=== PATIENT | male | born 1975 | race Caucasian/White ===

== ENCOUNTER 2020-02-02 13:03 | Emergency (ER) | payer SELFPAY ==
[~2020-02-02] VITALS: Ht 172.7 cm; Wt 86.2 kg
--- OUTSIDE RECORDS SUMMARY | 2020-02-02 13:06 | XMS REPORT | Clinical Summary ---
Author Author [facility] Address Unknown Phone Unavailable Care Team Providers Care Physics Professor Name Role Phone PCP Unavailable Allergies Not on File Medications Not on file Active Problems Not on file Social History Date Tobacco Use Types Packs/Day Years Used Never Assessed Sex Assigned at Date Recorded Not on file Industry Job Start Date Occupation Not on file Not on file Not on file Travel End Travel History Travel Start No recent travel history available. Last Filed Vital Signs Not on file Plan of Treatment Not on file Results Not on fileafter 02/01/2019 Insurance Payer Benefit Subscriber ID Type Phone Address Plan / Group BLUE CROSS/BLUE SHIELD BCBS PPO xxxxxxxxxxxx PPO [address] [place] [address] CHOICE
--- OUTSIDE RECORDS SUMMARY | 2020-02-02 13:06 | XMS REPORT | Summary of Care ---
Author Author [facility] [place] [place] Organization [facility] [place] [place] Address Unknown Phone Unavailable Encounter BETHANY Ramos(MIK) [id number] Date(s): 06/09/19 - 06/14/[address] [facility] [place] [place] [address] [facility] provided by [employer] [place] [address]- Discharge Disposition: Home or Self Care Attending Physician: Santo Reina DO Admitting Physician: Santo Reina DO Vital Signs 1 2 3 Most recent to oldest [Reference Range]: 175.2 cm (06/10/19 4:20 AM) 175.26 cm (06/10/19 1:24 AM) 175.26 cm (06/09/19 11:03 PM) Height 98.4 DegF (06/14/19 11:50 AM) 98.1 DegF (06/14/19 8:05 AM) 98 DegF (06/13/19 11:25 PM) Temperature Oral [96.4-99.1 DegF] 136/73 mmHg (06/14/19 11:50 AM) 147/78 mmHg *HI* (06/14/19 8:05 AM) 139/71 mmHg (06/14/19 3:24 AM) Blood Pressure [90-140/60-90 mmHg] 19 BRMIN (06/14/19 11:50 AM) 18 BRMIN (06/14/19 8:05 AM) 16 BRMIN (06/14/19 3:24 AM) Respiratory Rate [14-20 BRMIN] 81 bpm (06/14/19 11:50 AM) 85 bpm (06/14/19 8:05 AM) 71 bpm (06/14/19 3:24 AM) Peripheral Pulse Rate [60-100 bpm] 90.909 kg (06/10/19 4:20 AM) 90.909 kg (06/10/19 1:24 AM) 90.909 kg (06/09/19 11:03 PM) Weight 29.62 m2 (06/10/19 4:20 AM) 29.6 m2 (06/09/19 11:03 PM) Body Mass Index Problem List No data available for this section Allergies, Adverse Reactions, Alerts Substance Reaction Severity Status Keflex Active iodine Active Medications acetaminophen 1,000 mg, 100 mL, Route: IV, Drug form: INJ, Q6H, Dosing Weight 90.909, kg, Star t date: 06/11/19 0:00:00 CDT, Duration: 4 doses or times, Stop date: 06/11/19 18 :00:00 CDT, > 67 kg; Pediatric Dosing, 0 Notes: Infuse over 15 minutesDo not exceed 4gm/day of acetaminophen MEDICAT ION WASTE Product Size: 1000 mgProduct Wasted: ___ mg Start Date: 06/11/19 Stop Date: 06/11/19 Status: Completed acetaminophen 500 mg oral tablet 1,000 mg = 2 tab, PO, Q6H, X 14 day, # 112 tab, 0 Refill(s) Start Date: 06/14/19 Stop Date: 06/28/19 Status: Ordered acetaminophen-codeine 300 mg-30 mg oral tablet 1 tab, PO, Q6H, PRN pain, # 20 tab, 0 Refill(s) Start Date: 06/10/19 Stop Date: 06/11/19 Status: Discontinued ANES flumazenil 0.2 mg, Route: IVP, PRN, Dosing Weight 90.909, kg, PRN Benzodiazepine Reversal, Initial dose, Start date: 06/10/19 18:16:00 CDT, Duration: 30 day, Stop date: 18:15:00 CDT Start Date: 06/10/19 Stop Date: 06/10/19 Status: Discontinued ANES hydrALAZINE 10 mg, Route: IVP, Q20Min, Dosing Weight 90.909, kg, PRN Elevated BP, Start date : 06/10/19 18:16:00 CDT, Duration: 2 doses or times, Stop date: Limited # of frandy es Start Date: 06/10/19 Stop Date: 06/10/19 Status: Discontinued ANES HYDROmorphone 0.5 mg, Route: IVP, Q5Min, Dosing Weight 90.909, kg, PRN Pain Score 7-10, Start date: 06/10/19 18:16:00 CDT, Duration: 4 doses or times, Stop date: Limited # of times Start Date: 06/10/19 Stop Date: 06/10/19 Status: Discontinued ANES labetalol 10 mg, Route: IVP, Q5Min, Dosing Weight 90.909, kg, PRN Elevated BP, Start date: 06/10/19 18:16:00 CDT, Duration: 5 doses or times, Stop date: Limited # of times Start Date: 06/10/19 Stop Date: 06/10/19 Status: Discontinued ANES naloxone 0.4 mg, Route: IVP, Q2MIN, Dosing Weight 90.909, kg, PRN Narcotic Reversal, Star t date: 06/10/19 18:16:00 CDT, Duration: 8 doses or times, Stop date: Limited # of times Start Date: 06/10/19 Stop Date: 06/10/19 Status: Discontinued ANES ondansetron 4 mg, Route: IVP, ONCE, Dosing Weight 90.909, kg, PRN Nausea & Vomiting, Start date: 06/10/19 18:16:00 CDT Start Date: 06/10/19 Stop Date: 06/10/19 Status: Discontinued ANES oxyCODONE 5 mg immediate release tablet 5 mg, Route: PO, Drug form: TAB, Q4H, Dosing Weight 90.909, kg, PRN Pain Score 4 -6, Start date: 06/10/19 18:16:00 CDT, Duration: 30 day, Stop date: 07/10/19 18: 15:00 CDT Start Date: 06/10/19 Stop Date: 06/10/19 Status: Discontinued ANES oxyCODONE 5 mg immediate release tablet 10 mg, Route: PO, Drug form: TAB, Q4H, Dosing Weight 90.909, kg, PRN Pain Score 7-10, Start date: 06/10/19 18:16:00 CDT, Duration: 30 day, Stop date: 07/10/19 1 8:15:00 CDT Start Date: 06/10/19 Stop Date: 06/10/19 Status: Discontinued Bactrim DS 800 mg- 160 mg oral tablet 1 tab, Route: PO, Drug Form: TAB, Dosing Weight 90.909, kg, [id number], Start date: 06/13/19 8:00:00 CDT, Duration: 7 day, Stop date: 06/19/19 20:00:00 CDT, 0 Notes: One DS tablet = trimethoprim 160mg + sulfamethoxazole 800 mgDose based on trimethoprim component On empty stomach with a glass of water. (Same As: Bactr im DS, Septra DS) Start Date: 06/13/19 Stop Date: 06/14/19 Status: Discontinued Bactrim DS 800 mg- 160 mg oral tablet 1 tab, PO, [id number], X 6 day, # 12 tab, 0 Refill(s) Start Date: 06/14/19 Stop Date: 06/20/19 Status: Ordered Bactrim DS 800 mg- 160 mg oral tablet 2 tab, Route: PO, Drug Form: TAB, Dosing Weight 90.909, kg, [id number], Start date: 06/12/19 13:00:00 CDT, Duration: 10 day, Stop date: 06/22/19 1:00:00 CDT, 0 Notes: One DS tablet = trimethoprim 160mg + sulfamethoxazole 800 mgDose based on trimethoprim component On empty stomach with a glass of water. (Same As: Bactr im DS, Septra DS) Start Date: 06/12/19 Stop Date: 06/12/19 Status: Discontinued Dilaudid 0.5 mg, Route: IVP, ONCE, Dosing Weight 90.909, kg, Priority: STAT, Start date: 06/11/19 14:40:00 CDT, Stop date: 06/11/19 14:40:00 CDT Start Date: 06/11/19 Stop Date: 06/11/19 Status: Discontinued docusate-senna 50 mg-8.6 mg oral tablet 1 tab, PO, BID, X 14 day, # 28 tab, 0 Refill(s) Start Date: 06/14/19 Stop Date: 06/28/19 Status: Ordered docusate-senna 50 mg-8.6 mg oral tablet 1 tab, Route: PO, Drug Form: TAB, Dosing Weight 90.909, kg, BID, Start date: 9:00:00 CDT, Duration: 30 day, Stop date: 07/09/19 17:00:00 CDT, 0 Notes: (Same as Senmarvaot-S) Equiv. to Isis-Colace. Start Date: 06/10/19 Stop Date: 06/14/19 Status: Discontinued dronabinol 10 mg, 2 cap, Route: PO, Drug form: CAP, BID, Dosing Weight 90.909, kg, Start da te: 06/11/19 20:31:00 CDT, Duration: 30 day, Stop date: 07/11/19 17:00:00 CDT, 0 Notes: (Same as: Marinol) Start Date: 06/11/19 Stop Date: 06/14/19 Status: Discontinued fentaNYL (ANES) Route: IV, Drug form: INJ, ONCE, Stop date: 06/10/19 18:24:00 CDT Start Date: 06/10/19 Stop Date: 06/10/19 Status: Completed gabapentin 300 mg oral capsule 300 mg, 1 cap, Route: PO, Drug form: CAP, Q8H, Dosing Weight 90.909, kg, (CrCl > 60 ml/min), Start date: 06/11/19 0:00:00 CDT, Duration: 30 day, Stop date: 06/19 12/04 18:00:00 CDT, 0 Notes: (Same as: Neurontin) Start Date: 06/11/19 Stop Date: 06/14/19 Status: Discontinued gabapentin 300 mg oral capsule 300 mg = 1 cap, PO, Q8H, # 42 cap, 0 Refill(s) Start Date: 06/14/19 Stop Date: 06/28/19 Status: Ordered heparin 5,000 unit, 1 mL, Route: SUB-Q, Drug form: INJ, Q8Hnow, Dosing Weight 90.909, kg , Start date: 06/10/19 4:00:00 CDT, Duration: 30 day, Stop date: 07/09/19 20:00: 00 CDT, 0 Notes: porcine heparin Start Date: 06/10/19 Stop Date: 06/14/19 Status: Discontinued heparin 5000 units/mL injectable solution 5,000 unit, 1 mL, Route: SUB-Q, Drug form: INJ, Q8H, Dosing Weight 90.909, kg, S tart date: 06/10/19 2:00:00 CDT, Duration: 30 day, Stop date: 07/10/19 0:00:00 C DT, 0 Notes: porcine heparin Start Date: 06/10/19 Stop Date: 06/10/19 Status: Discontinued hydromorphone (ANES) + sodium chloride (ANES) 9 mL Route: IV, Drug form: INJ, ONCE, Stop date: 06/10/19 18:30:00 CDT Start Date: 06/10/19 Stop Date: 06/10/19 Status: Completed Isolyte S PH 7.4 1,000 mL 1,000 mL, Rate: 120 ml/hr, Infuse over: 8.3 hr, Route: IV, Dosing Weight 90.909 kg, Total Volume: 1,000, Start date: 06/10/19 1:05:00 CDT, Duration: 30 day, Sto p date: 07/10/19 1:04:00 CDT, 2.12, m2, 0 Notes: (Same as: Isolyte S PH 7.4) Start Date: 06/10/19 Stop Date: 06/14/19 Status: Discontinued Lactated Ringers Injection IV (ANES) 1000 mL Route: IV, Total Volume: 1,000, Start date: 06/10/19 17:12:00 CDT, Stop date: 18:12:00 CDT Start Date: 06/10/19 Stop Date: 06/10/19 Status: Completed lidocaine (ANES) Route: IV, Drug form: INJ, ONCE, Stop date: 06/10/19 18:24:00 CDT Start Date: 06/10/19 Stop Date: 06/10/19 Status: Completed Lidoderm 5% topical film (patch) 2 patch, Route: TOP, Q24H, Drug form: FILM, Start date: 06/10/19 5:00:00 CDT, Du ration: 30 day, Stop date: 07/09/19 5:00:00 CDT, 0 Notes: Apply only once for up to 12 hours in [id number] period (12 hours on and 12 hours off).(Same as: Lidoderm)"Remove old patch before application of new patch" Start Date: 06/10/19 Stop Date: 06/14/19 Status: Discontinued meropenem 500 mg, Route: IVPB, Drug form: PDR/INJ, ONCE, Dosing Weight 90.909, kg, Priorit y: STAT, Start date: 06/10/19 0:37:00 CDT, Stop date: 06/10/19 0:37:00 CDT, ABX Indication: Skin/Soft Tissue Infection, 0 Notes: Same as Merrem MEDICATION WASTE Product Size: 500 mgProduct Wast ed: _0__ mg Start Date: 06/10/19 Stop Date: 06/10/19 Status: Completed meropenem 1,000 mg, Route: IV, Drug form: PDR/INJ, Q8H, Dosing Weight 90.909, kg, Start da te: 06/10/19 8:00:00 CDT, Duration: 30 day, Stop date: 07/10/19 0:00:00 CDT, ABX Indication: Skin/Soft Tissue Infection, 0 Notes: (Same as: Merrem) . MEDICATION WASTE Product Size: 1000 mgProduc t Wasted: ___ mg Start Date: 06/10/19 Stop Date: 06/12/19 Status: Discontinued methocarbamol 750 mg oral tablet 750 mg = 1 tab, PO, TID, X 7 day, # 21 tab, 0 Refill(s) Start Date: 06/14/19 Stop Date: 06/21/19 Status: Ordered midazolam (ANES) Route: IV, Drug form: SOLN, ONCE, Stop date: 06/10/19 17:44:00 CDT Start Date: 06/10/19 Stop Date: 06/10/19 Status: Completed morphine Sulfate 4 mg, 1 mL, Route: IVP, Drug form: SOLN, ONCE, Dosing Weight 90.909, kg, Start d ate: 06/10/19 21:00:00 CDT, Stop date: 06/10/19 21:00:00 CDT, 0 Notes: (Same as:MORPhine Sulfate) Start Date: 06/10/19 Stop Date: 06/10/19 Status: Completed morphine Sulfate 4 mg, 1 mL, Route: IVP, Drug form: SOLN, ONCE, Dosing Weight 90.909, kg, Priorit y: STAT, Start date: 06/09/19 23:28:00 CDT, Stop date: 06/09/19 23:28:00 CDT, 0 Notes: (Same as:MORPhine Sulfate) Start Date: 06/09/19 Stop Date: 06/09/19 Status: Completed nicotine 7 mg, 1 patch, Route: TOP, Drug form: ERFILM, Daily, Dosing Weight 90.909, kg, S tart date: 06/10/19 9:00:00 CDT, Duration: 30 day, Stop date: 07/09/19 9:00:00 C DT, 0 Notes: (Same as: Habitrol)"Remove old patch before application of new patch"WAST E: F/P - P Waste Black; E - P Waste Black Start Date: 06/10/19 Stop Date: 06/14/19 Status: Discontinued pantoprazole 40 mg, 1 tab, Route: PO, Drug form: ECTAB, Before Breakfast, Dosing Weight 90.90 9, kg, Start date: 06/10/19 7:30:00 CDT, Duration: 30 day, Stop date: 07/09/19 7 :30:00 CDT, 0 Notes: Tablet should not be chewed or crushed.(Same as: Protonix) Start Date: 06/10/19 Stop Date: 06/14/19 Status: Discontinued pantoprazole 40 mg oral enteric coated tablet 40 mg = 1 tab, PO, Before Breakfast, # 14 tab, 0 Refill(s) Start Date: 06/14/19 Stop Date: 06/28/19 Status: Ordered propofol (ANES) Route: IV, Drug form: INJ, ONCE, Stop date: 06/10/19 18:24:00 CDT Start Date: 06/10/19 Stop Date: 06/10/19 Status: Completed remove patch 1 patch, Route: TOP, Drug form: ERFILM, Daily, Start date: 06/10/19 9:00:00 CDT, Duration: 30 day, Stop date: 07/09/19 9:00:00 CDT, 0 Notes: Remove old patch before application of new patch.WASTE: F/P - P Waste Juan ck; E - P Waste Black Start Date: 06/10/19 Stop Date: 06/14/19 Status: Discontinued remove patch 2 patch, Route: TOP, Q24H, Drug form: ERFILM, Start date: 06/10/19 17:00:00 CDT, Duration: 30 day, Stop date: 07/09/19 17:00:00 CDT, 0 Notes: Remove patch 12 hours after application each day. Start Date: 06/10/19 Stop Date: 06/14/19 Status: Discontinued Robaxin 750 mg, 1 tab, Route: PO, Drug form: TAB, TID, Dosing Weight 90.909, kg, Start d ate: 06/12/19 9:00:00 CDT, Duration: 5 day, Stop date: 06/16/19 17:00:00 CDT, 0 Notes: (Same as:Robaxin) Start Date: 06/12/19 Stop Date: 06/14/19 Status: Discontinued rocuronium (ANES) Route: IV, Drug form: INJ, ONCE, Stop date: 06/10/19 18:24:00 CDT Start Date: 06/10/19 Stop Date: 06/10/19 Status: Completed succinylcholine (ANES) Route: IV, Drug form: INJ, ONCE, Stop date: 06/10/19 18:24:00 CDT Start Date: 06/10/19 Stop Date: 06/10/19 Status: Completed tramadol 50 mg, Route: PO, Drug form: TAB, Q6H, Dosing Weight 90.909, kg, Start date: 6:00:00 CDT, Duration: 30 day, Stop date: 07/10/19 0:00:00 CDT Start Date: 06/10/19 Stop Date: 06/10/19 Status: Canceled tramadol 100 mg, 2 tab, Route: PO, Drug form: TAB, Q6H, Dosing Weight 90.909, kg, PRN Dai n Score 4-6, Start date: 06/10/19 1:53:00 CDT, Duration: 30 day, Stop date: 06/19 12/04 1:52:00 CDT, 0 Notes: Not to exceed 400mg/day. (Same As: Ultram) Start Date: 06/10/19 Stop Date: 06/14/19 Status: Discontinued tramadol 50 mg oral tablet 100 mg = 2 tab, PO, Q6H, PRN Pain Score 4-6, X 3 day, # 24 tab, 0 Refill(s) Start Date: 06/14/19 Stop Date: 06/17/19 Status: Ordered Tylenol 1,000 mg, 2 tab, Route: PO, Drug form: TAB, Q6H, Dosing Weight 90.909, kg, Start date: 06/10/19 6:00:00 CDT, Duration: 30 day, Stop date: 07/10/19 0:00:00 CDT, 0 Notes: Max acetaminophen 4000 mg/day (4 gm/day). (Same as: Tylenol Extra Streng th) Start Date: 06/10/19 Stop Date: 06/14/19 Status: Discontinued vancomycin 1.25 gm, Route: IVPB, Drug form: INJ, [id number], Dosing Weight 90.909, kg, Priority : Within 4 hours, Start date: 06/12/19 15:00:00 CDT, Duration: 1 day, Stop date: 06/13/19 7:00:00 CDT, ABX Indication: Skin/Soft Tissue Infection Start Date: 06/12/19 Stop Date: 06/12/19 Status: Canceled vancomycin 800 mg, Route: IV, ONCE, Dosing Weight 90.909, kg, Start date: 06/10/19 1:20:00 CDT, Stop date: 06/10/19 1:20:00 CDT, ABX Indication: Skin/Soft Tissue Infection Start Date: 06/10/19 Stop Date: 06/10/19 Status: Completed vancomycin 1,250 mg, 250 mL, Route: IV, Drug form: INJ, [id number], Dosing Weight 90.909, kg, Start date: 06/10/19 4:00:00 CDT, Duration: 7 day, Stop date: 06/16/19 16:00:00 CDT, ABX Indication: Skin/Soft Tissue Infection, 0 Notes: TIME CRITICAL MEDICATIONSame as: Vancocin-NS (premixed)Infusion rate< 1000 mg: infuse over 1 [id number] - 1500 mg: infuse over 1.5 [id number] - 2000 mg: infuse over 2 hours> 2001 mg: infuse over 2.5 hours Start Date: 06/10/19 Stop Date: 06/10/19 Status: Discontinued vancomycin 1 gm, Route: IVPB, Drug form: INJ, [id number], Start date: 06/10/19 14:00:00 CDT, D uration: 7 day, Stop date: 06/17/19 2:00:00 CDT, ABX Indication: Skin/Soft Tissu e Infection, 0 Notes: TIME CRITICAL MEDICATION(Same As: Vancocin)Infusion rate< 1000 mg: infuse over 1 [id number] - 1500 mg: infuse over 1.5 [id number] - 2000 mg: infuse over 2 hours> 2001 mg: infuse over 2.5 hoursFor adult patients only: Round to nearest 250 mg per Medical Staff approval MEDICATION WASTE Product Size: 1000 mgProduct Wasted: ___ mg Start Date: 06/10/19 Stop Date: 06/10/19 Status: Deleted vancomycin 1,250 mg, 250 mL, Route: IV, Drug form: INJ, [id number], Dosing Weight 90.909, kg, S tart date: 06/10/19 14:00:00 CDT, Stop date: 06/16/19 22:30:00 CDT, ABX Indicati on: Skin/Soft Tissue Infection, 0 Notes: TIME CRITICAL MEDICATIONSame as: Vancocin-NS (premixed)Infusion rate< 1000 mg: infuse over 1 [id number] - 1500 mg: infuse over 1.5 [id number] - 2000 mg: infuse over 2 hours> 2001 mg: infuse over 2.5 hours Start Date: 06/10/19 Stop Date: 06/12/19 Status: Discontinued vancomycin + Sodium Chloride 0.9% IV 250 mL 1,500 mg, Route: IVPB, [id number], Dosing Weight 90.909, kg, Start date: 06/12/19 1 8:00:00 CDT, Duration: 1 day, Stop date: 06/13/19 6:00:00 CDT, ABX Indication: S kin/Soft Tissue Infection, 0 Notes: TIME CRITICAL MEDICATION(Same As: Vancocin)Infusion rate< 1000 mg: infuse over 1 [id number] - 1500 mg: infuse over 1.5 hoursVancomycin FOR IV SET [id number] - 2000 mg: infuse over 2 hours> 2001 mg: infuse over 2.5 hoursFor adult patients only: Round to nearest 250 mg per Medical Staff approval MEDICATION WASTE Product Size: 1000 mgProduct Wasted: ___ mg Start Date: 06/12/19 Stop Date: 06/13/19 Status: Completed Zofran 2 mg/mL injectable solution 4 mg, 2 mL, Route: IV, Drug form: INJ, ONCE, Dosing Weight 90.909, kg, Start giovanni e: 06/10/19 11:16:00 CDT, Stop date: 06/10/19 11:16:00 CDT, 0 Notes: (Same as: Zofran) MEDICATION WASTE Product Size: 4 mgProduct Was chente: ___ mg Start Date: 06/10/19 Stop Date: 06/10/19 Status: Completed Results 1 2 3 Most recent to oldest [Reference Range]: 9.4 K/CMM *HI* (06/14/19 2:11 AM) 18.7 K/CMM *HI* (06/09/19 11:38 PM) Neutrophils # [1.5-8.1 K/CMM] 5.0 K/CMM (06/14/19 2:11 AM) 3.4 K/CMM (06/09/19 11:38 PM) Lymphocytes # [1.0-5.5 K/CMM] 1.6 K/CMM *HI* (06/14/19 2:11 AM) 2.2 K/CMM *HI* (06/09/19 11:38 PM) Monocytes # [0.0-0.8 K/CMM] 0.7 K/CMM *HI* (06/14/19 2:11 AM) 0.3 K/CMM (06/09/19 11:38 PM) Eosinophils # [0.0-0.5 K/CMM] 0.1 K/CMM (06/14/19 2:11 AM) 0.1 K/CMM (06/09/19 11:38 PM) Basophils # [0.0-0.2 K/CMM] 1500 *NA* (06/12/19 3:50 PM) 1330 *NA* (06/11/19 2:20 PM) Vanco Tr TND 7.4 ug/ml *NA* (06/12/19 3:50 PM) 0.9 ug/ml *NA* (06/11/19 2:20 PM) Vanco Tr Normal (06/09/19 11:38 PM) Plt Morph [Normal] 67 mL/min/1.73m2 1 *NA* (06/14/19 2:11 AM) 76 mL/min/1.73m2 2 *NA* (06/13/19 12:15 AM) 76 mL/min/1.73m2 3 *NA* (06/13/19 12:15 AM) eGFR O POS *Unknown* (06/09/19 11:35 PM) ABO/Rh See Note (06/11/19 3:00 AM) UDS Note 0.7 (06/13/19 12:15 AM) A/G Ratio [0.7-1.6] Negative (06/09/19 11:35 PM) Antibody Scrn 2.6 g/dL *LOW* (06/13/19 12:15 AM) Albumin Lvl [3.5-5.0 g/dL] 57 unit/L (06/13/19 12:15 AM) Alk Phos [39-136 unit/L] 56 unit/L (06/13/19 12:15 AM) ALT [0-65 unit/L] Negative *NA* (06/11/19 3:00 AM) U Amph Scr [Negative] 12.6 mEq/L (06/14/19 2:11 AM) 11.3 mEq/L (06/13/19 12:15 AM) 11.3 mEq/L (06/13/19 12:15 AM) AGAP [10.0-20.0 mEq/L] 33 unit/L (06/13/19 12:15 AM) AST [0-37 unit/L] 8 (06/13/19 12:15 AM) B/C Ratio [6-25] Negative *NA* (06/11/19 3:00 AM) U Yenifer Scr [Negative] 0.8 % (06/14/19 2:11 AM) 0.3 % (06/09/19 11:38 PM) Basophils [0.0-1.0 %] Positive *ABN* (06/11/19 3:00 AM) U Benzodiaz Scr [Negative] 11 mg/dL (06/14/19 2:11 AM) 9 mg/dL (06/13/19 12:15 AM) 9 mg/dL (06/13/19 12:15 AM) BUN [7-22 mg/dL] 8.9 mg/dL (06/14/19 2:11 AM) 8.8 mg/dL (06/13/19 12:15 AM) 8.8 mg/dL (06/13/19 12:15 AM) Calcium Lvl [8.5-10.5 mg/dL] 107 mEq/L (06/14/19 2:11 AM) 107 mEq/L (06/13/19 12:15 AM) 107 mEq/L (06/13/19 12:15 AM) Chloride Lvl [95-109 mEq/L] 23 mEq/L *LOW* (06/14/19 2:11 AM) 24 mEq/L (06/13/19 12:15 AM) 24 mEq/L (06/13/19 12:15 AM) CO2 [24-32 mEq/L] Negative *NA* (06/11/19 3:00 AM) U Cocaine Scr [Negative] 1.31 mg/dL (06/14/19 2:11 AM) 1.18 mg/dL (06/13/19 12:15 AM) 1.18 mg/dL (06/13/19 12:15 AM) Creatinine Lvl [0.50-1.40 mg/dL] 3.9 % (06/14/19 2:11 AM) 1.4 % (06/09/19 11:38 PM) Eosinophils [0.0-4.0 %] 3.7 g/dL (06/13/19 12:15 AM) Globulin [2.7-4.2 g/dL] 127 mg/dL *HI* (06/14/19 2:11 AM) 135 mg/dL *HI* (06/13/19 12:15 AM) 135 mg/dL *HI* (06/13/19 12:15 AM) Glucose Lvl [70-99 mg/dL] Negative *NA* (06/11/19 4:44 AM) Hep A IgM [Negative] Negative *NA* (06/11/19 4:44 AM) Hep B Core IgM [Negative] Negative *NA* (06/11/19 4:44 AM) Hep Bs Ag [Negative] 43.7 % (06/14/19 2:11 AM) 39.2 % *LOW* (06/13/19 12:15 AM) 40.2 % *LOW* (06/11/19 4:44 AM) Hct [42.0-54.0 %] Negative *NA* (06/11/19 4:44 AM) Hep C Ab [Negative] 14.2 g/dL (06/14/19 2:11 AM) 13.1 g/dL *LOW* (06/13/19 12:15 AM) 13.0 g/dL *LOW* (06/11/19 4:44 AM) Hgb [14.0-18.0 g/dL] 4.6 mEq/L (06/14/19 2:11 AM) 4.3 mEq/L (06/13/19 12:15 AM) 4.3 mEq/L (06/13/19 12:15 AM) Potassium Lvl [3.5-5.1 mEq/L] 0.9 mMol/L (06/09/19 11:38 PM) Lactic Acid Lvl [0.5-2.2 mMol/L] 30.0 % (06/14/19 2:11 AM) 13.6 % *LOW* (06/09/19 11:38 PM) Lymphocytes [20.0-40.0 %] 26.4 pg *LOW* (06/14/19 2:11 AM) 26.9 pg *LOW* (06/13/19 12:15 AM) 26.4 pg *LOW* (06/11/19 4:44 AM) MCH [27.0-31.0 pg] 32.5 g/dL (06/14/19 2:11 AM) 33.3 g/dL (06/13/19 12:15 AM) 32.4 g/dL (06/11/19 4:44 AM) MCHC [32.0-36.0 g/dL] 81.3 fL (06/14/19 2:11 AM) 80.8 fL (06/13/19 12:15 AM) 81.5 fL (06/11/19 4:44 AM) MCV [80.0-94.0 fL] Negative *NA* (06/11/19 3:00 AM) U Methadone Scr [Negative] 1.8 mg/dL (06/10/19 4:57 AM) Magnesium Lvl [1.8-2.4 mg/dL] 9.3 % (06/14/19 2:11 AM) 9.1 % (06/09/19 11:38 PM) Monocytes [2.0-12.0 %] 8.0 fL (06/14/19 2:11 AM) 7.5 fL (06/13/19 12:15 AM) 8.1 fL (06/11/19 4:44 AM) MPV [7.4-10.4 fL] 138 mEq/L (06/14/19 2:11 AM) 138 mEq/L (06/13/19 12:15 AM) 138 mEq/L (06/13/19 12:15 AM) Sodium Lvl [135-145 mEq/L] Positive *ABN* (06/11/19 3:00 AM) U Opiate Scr [Negative] Negative *NA* (06/11/19 3:00 AM) U Phencyclidine Scr [Negative] 1.9 mg/dL *LOW* (06/10/19 4:57 AM) Phosphorus [2.5-4.5 mg/dL] 689 K/CMM *HI* (06/14/19 2:11 AM) 640 K/CMM *HI* (06/13/19 12:15 AM) 598 K/CMM *HI* (06/11/19 4:44 AM) Platelet [133-450 K/CMM] 56.0 % (06/14/19 2:11 AM) 75.6 % *HI* (06/09/19 11:38 PM) Segs [45.0-75.0 %] Negative *NA* (06/11/19 3:00 AM) U Propoxyph Scr [Negative] 6.3 g/dL *LOW* (06/13/19 12:15 AM) Total Protein [6.4-8.4 g/dL] 5.38 M/CMM (06/14/19 2:11 AM) 4.85 M/CMM (06/13/19 12:15 AM) 4.92 M/CMM (06/11/19 4:44 AM) RBC [4.70-6.10 M/CMM] Normal (06/09/19 11:38 PM) RBC Morph [Normal] 17.1 % *HI* (06/14/19 2:11 AM) 16.7 % *HI* (06/13/19 12:15 AM) 16.7 % *HI* (06/11/19 4:44 AM) RDW [11.5-14.5 %] 0.2 mg/dL (06/13/19 12:15 AM) Bili Total [0.2-1.3 mg/dL] Negative *NA* (06/11/19 3:00 AM) U Cannab Scr [Negative] 16.9 K/CMM *HI* (06/14/19 2:11 AM) 18.8 K/CMM *HI* (06/13/19 12:15 AM) 22.5 K/CMM *HI* (06/11/19 4:44 AM) WBC [3.7-10.4 K/CMM] Negative *NA* (06/11/19 4:44 AM) HIV. [Negative] 1Result Comment: The eGFR is calculated using the CKD-EPI formula. In most young, healthy individuals the eGFR will be >90 mL/min/1.73m2. The eGFR declines with age. An eGFR of 60-89 may be normal in some populations, particularly the elderly, for whom the CKD-EPI formula has not been extensively validated. Use of the eGFR is not recommended in the following populations: Individuals with unstable creatinine concentrations, including patients and those with serious co-morbid conditions. Patients with extremes in muscle mass or diet. The data above are obtained from the [employer] ( [employer]) which additionally recommends that when the eGFR is used in patients with extremes of body mass index for purposes of drug dosing, the eGFR should be mul tiplied by the estimated BMI. 2Result Comment: The eGFR is calculated using the CKD-EPI formula. In most young, healthy individuals the eGFR will be >90 mL/min/1.73m2. The eGFR declines with age. An eGFR of 60-89 may be normal in some populations, particularly the elderly, for whom the CKD-EPI formula has not been extensively validated. Use of the eGFR is not recommended in the following populations: Individuals with unstable creatinine concentrations, including patients and those with serious co-morbid conditions. Patients with extremes in muscle mass or diet. The data above are obtained from the [employer] ( [employer]) which additionally recommends that when the eGFR is used in patients with extremes of body mass index for purposes of drug dosing, the eGFR should be mul tiplied by the estimated BMI. 3Result Comment: The eGFR is calculated using the CKD-EPI formula. In most young, healthy individuals the eGFR will be >90 mL/min/1.73m2. The eGFR declines with age. An eGFR of 60-89 may be normal in some populations, particularly the elderly, for whom the CKD-EPI formula has not been extensively validated. Use of the eGFR is not recommended in the following populations: Individuals with unstable creatinine concentrations, including patients and those with serious co-morbid conditions. Patients with extremes in muscle mass or diet. The data above are obtained from the [employer] ( [employer]) which additionally recommends that when the eGFR is used in patients with extremes of body mass index for purposes of drug dosing, the eGFR should be mul tiplied by the estimated BMI. Microbiology Reports TEST: Culture: Anaerobic STATUS: Auth (Verified) BODY SITE: Left Hip SOURCE: Wound, Surgical COLLECTED DATE/TIME: 06/10/19 5:50 PM FINAL REPORT Many Anaerobic Gram Positive Cocci , Identified As: Peptoniphilus indolicus TEST: Culture: Wound/Abscess w/Gram Stain STATUS: Auth (Verified) BODY SITE: Left Hip SOURCE: Wound, Surgical COLLECTED DATE/TIME: 06/10/19 5:50 PM FINAL REPORT Many Staphylococcus aureus Upon Supplemental Testing, This Isolate Was Found To Be Resistant To Clindamycin By An Inducible Mechanism. STAIN REPORT Moderate WBC's Rare Gram Positive Cocci In Clusters Critical Results Called To: Ms. Fausto RN, [id number], [id number] At: 06/10/2019 19:35 Called By: FREDDY Read Back Ok ORGANISM:Staphylococcus aureus Immunizations Given and Recorded Vaccine Date Status Refusal Reason influenza virus vaccine, inactivated 06/14/19 G iven haemophilus b conjugate (PRP-T) vaccine 12/15/17 Given meningococcal conjugate vaccine 12/15/17 Given pneumococcal 13-valent vaccine 12/15/17 Given Procedures Procedure Date Related Diagnosis Body Site Status Colonoscopy 2007 Completed Tonsillectomy 1982 Completed Splenectomy Completed Social History Social History Type Response Alcohol Current, Type Beer. Freque ncy: Daily. Smoking Status Current every day smoker; T ype: Cigarettes; Ready to change: Yes; Exposure to Tobacco Smoke None; Cigarette Smokin g Last 365 Days Yes; Reg Smoking Cessation Counseling No; Tobacco use pe r day: 2; Started at age: 20.0; entered on: 06/09/19 Assessment and Plan Extracted from: Title: EGS Discharge Summary Author: Rodger Balderrama Date: 06/14/19 Date of Admission: 06/09/2019 23:02 Date of Discharge: 06/14/2019 17:44 Admitting Attending: Santo Reina DO Diagnosis: Bilateral Thigh Abscesses Consultations: Consulting Physicians: Prabhakar Peña MDOffice: Service: General Surgery Surgical Procedures: Incision and drainage of abscesses, right and left hip. 06/10 Time spent Discharging Patient: 45 min Hospital Course: 43 year old male with Pmh of polycythemi a vera (non compliant with phlebotomy) , splenectomy, and GERD who p/w with bilateral thigh swelling. The patient states that for 3 weeks he has been injecting testosterone with needles into his bilateral thighs. He states that about 1 week ago after he fell in the shower he noticed swelling to bilateral thighs accompanied with pain, redness, erythema, and warmth. He first went to [facility] and had the right swelling I&D and subsequently packed. He was then prescribed Bactrim (day 7) and clindamycin (day 3) from [facility]. Bilateral swellings have continued to worsen and he developed fever (102), nausea, and non bloody emesis yesterday. He was seen at [facility] today and was referred here after CT scan showed cellulitis vs abscess. He was then taken to the OR on 06/10 for Incision and drainage of abscesses, right and left hip. There were no complications. The remainder of his hospital course was without complications. Repeat labs remained stable. The patient was tolerating an oral diet, pain was controlled with oral pain medications, voiding without difficulty, and passing regular bowel movements. He was ambulating with assistance from PT and RW and above goal on IS. At this time all consulting services agreed pt was safe for DC home. He was instructed to notify all treating physicians if he develops fever, SOB, pain that is not controlled on prescription pain medications, severe or worsening headache, numbness or tingling in his extremities, nausea or vomiting, signs of infection, or unexplained swelling. Disposition: Home Condition: Stable Diet: Regular Discharge Instructions Activity: Diet: Medications (name, dose, route, frequency): Discharge Medications tramadol 50 mg oral tablet :100 mg, 2 tab, PO, Q6H, for 3 day, PRN: Pain Score 4-6, 24 tab, 0 Refill(s) Ordered by: Rodger Balderrama MD - 06/14/2019 12:33 Bactrim DS 800 mg- 160 mg oral tablet :1 tab, PO, [id number], for 6 day, 12 tab, 0 Refill(s) Ordered by: Rodger Balderrama MD - 06/14/2019 12:33 pantoprazole 40 mg oral enteric coated tablet :40 mg, 1 tab, PO, Before Breakfast, for 14 day, 14 tab, 0 Refill(s) Ordered by: Rodger Balderrama MD - 06/14/2019 12:33 methocarbamol 750 mg oral tablet :750 mg, 1 tab, PO, TID, for 7 day, 21 tab, 0 Refill(s) Ordered by: Rodger Balderrama MD - 06/14/2019 12:33 gabapentin 300 mg oral capsule :300 mg, 1 cap, PO, Q8H, for 14 day, 42 cap, 0 Refill(s) Ordered by: Rodger Balderrama MD - 06/14/2019 12:33 docusate-senna 50 mg-8.6 mg oral tablet :1 tab, PO, BID, for 14 day, 28 tab, 0 Refill(s) Ordered by: Rodger Balderrama MD 06/14/2019 12:33 acetaminophen 500 mg oral tablet :1,000 mg, 2 tab, PO, Q6H, for 14 day, 112 tab, 0 Refill(s) Ordered by: Rodger Balderrama MD - 06/14/2019 12:33 Follow Up With Prabhakar Peña MD, Call for appointment, within: 2 Weeks, reason: Follow Up On Treatment Rodger Balderrama MD General Surgery PGY-1 MSO# [id number] Pager #[phone] Addendum ATTENDING ATTESTATION: by Mariana, I have seen and examined th e patient with the above provider (resident/fellow). Prabhakar Futhermore, I concur with t heir findings and plan as noted above. Atif MASON on 06/15/2019 12:09 Extracted from: Title: EGS Progress Note Author: Myra Aponte DO Date: Abscess of hip(L02.419) Cellulitis(L03.90) 1. Cellulitis - Discontinue meropenem per ID recs - Discontinued vancomycin and start PO bactrim 1 tab q12h for 7 days - Regular diet - ID recommended MRI of hips however in OR, no visualization of abscess going near bone so no current indications for MRI at this time Myra Aponte DO Anesthesiology PGY-1 Addendum by Mariana, ATTENDING ATTESTATION: Prabhakar I have seen and examined th e patient with the above provider (resident/fellow). Atif MASON Futnadeen, I concur with t findings and plan as noted above. on 06/15/2019 16:11 CDT Extracted from: Title: EGD History and Physical Author: Brielle Dowd MD Date: 06/10/19 Abscess of hip(L02.419) Cellulitis(L03.90) 43 year old male with Pmh of polycythemia vera, splenectomy,andGERD who p/w with bilateral thigh swelling abscess . #bilateral thigh abscess -Npo -F/u Am labs -MIVF -OR this AM -Cultures to be obtained in OR -vancomycin (06/10- -Meropenem (06/10- #mmpt lidoderm tramadol tylenol #tobacco use -Nicotine patch #GERD -PPI #GI bowel regimen (docusate-senna) #DVT ppx heparin Brielle Dowd MD Anesthesia, PGY-1 [facility] ATTENDING ADDENDUM: I have personally seen and examined this patient with Dr. Dowd. Furthermore I have reviewed the resident's note and I agree with the above exam, assessment, and plan. I have reviewed all relevant imaging and interpretted it myself. Yana Reina [id number]
--- OUTSIDE RECORDS SUMMARY | 2020-02-02 13:06 | XMS REPORT | Summary of Care ---
Author Author [facility] Organization [facility] Address Unknown Phone Unavailable Encounter BETHANY Ramos(MIK) [id number] Date(s): 12/07/17 - 12/15/17 [facility] [address] [place] [address]- [phone] Encounter Diagnosis Pneumonia, unspecified organism (Final) - Pneumonia, unspecified organism (Final) - Infarction of spleen (Final) - 12/19/17 Other shock (Final) - Acute respiratory failure with hypoxia (Final) - Hemoperitoneum (Final) - Pneumonia, unspecified organism (Final) - Acute kidney failure, unspecified (Final) - Acute posthemorrhagic anemia (Final) - Coagulation defect, unspecified (Final) - Hyperkalemia (Final) - Fluid overload, unspecified (Final) - Nicotine dependence, cigarettes, uncomplicated (Final) - Discharge Disposition: Home or Self Care Attending Physician: Allan Rinaldi MD Admitting Physician: Allan Rinaldi MD Referring Physician: Reuben Carolina MD Vital Signs 1 2 3 Most recent to oldest [Reference Range]: 175.26 cm (12/07/17 10:43 PM) Height 84 kg (12/12/17 5:00 AM) Current Weight 98.0 DegF (12/15/17 12:09 PM) 98.1 DegF (12/15/17 7:06 AM) 98.1 DegF (12/15/17 5:48 AM) Temperature Oral [96.4-99.1 DegF] 103/61 mmHg (12/15/17 12:09 PM) 116/73 mmHg (12/15/17 7:06 AM) 110/69 mmHg (12/15/17 5:48 AM) Blood Pressure [90-140/60-90 mmHg] 18 BRMIN (12/15/17 12:09 PM) 18 BRMIN (12/15/17 7:06 AM) 19 BRMIN (12/15/17 5:48 AM) Respiratory Rate [14-20 BRMIN] 101 bpm *HI* (12/15/17 12:09 PM) 98 bpm (12/15/17 7:06 AM) 86 bpm (12/15/17 5:48 AM) Peripheral Pulse Rate [60-100 bpm] 84.5 kg (12/07/17 10:43 PM) Weight 27.51 m2 (12/07/17 10:43 PM) Body Mass Index Problem List No data available for this section Allergies, Adverse Reactions, Alerts Substance Reaction Severity Status iodine Active Medications acetaminophen 1,000 mg, 100 mL, Route: IVPB, Drug form: INJ, Q6H, Dosing Weight 84.5, kg, Prio rity: NOW, Start date: 12/08/17 12:39:00 CDT, Duration: 48 hr, Stop date: 12:00:00 CDT Notes: Infuse over 15 minutesDo not exceed 4gm/day of acetaminophen MEDICAT ION WASTE Product Size: 1000 mgProduct Wasted: ___ mg Start Date: 12/08/17 Stop Date: 12/09/17 Status: Discontinued acetaminophen 1,000 mg, 2 tab, Route: PO, Drug form: TAB, Q6H, Dosing Weight 84.5, kg, PRN Dai n 4-6/Temp > 100.4 F, Start date: 12/10/17 11:45:00 CDT, Stop date: 12/10/17 11:45:00 CDT Notes: Max acetaminophen 4000 mg/day (4 gm/day). (Same as: Tylenol Extra Streng th) Start Date: 12/10/17 Stop Date: 12/10/17 Status: Completed acetaminophen 650 mg, 2 tab, Route: PO, Drug form: TAB, Q4H, kg, PRN For Temp > 100.4 F, Start date: 12/07/17 22:35:00 CDT, Duration: 30 day, Stop date: 01/06/18 22:34:00 CDT Notes: Do not exceed 4 gm/day. (Same as: Tylenol) Start Date: 12/07/17 Stop Date: 12/08/17 Status: Discontinued acetaminophen 1,000 mg, 100 mL, Route: IVPB, Drug form: INJ, Q6H, Dosing Weight 84.5, kg, Prio rity: NOW, Start date: 12/08/17 11:13:00 CDT, Duration: 48 hr, Stop date: 6:00:00 CDT Notes: Infuse over 15 minutesDo not exceed 4gm/day of acetaminophen MEDICAT ION WASTE Product Size: 1000 mgProduct Wasted: ___ mg Start Date: 12/08/17 Stop Date: 12/08/17 Status: Discontinued acetaminophen 1,000 mg, 2 tab, Route: PO, Drug form: TAB, Q6H, Dosing Weight 84.5, kg, Start d ate: 12/09/17 18:00:00 CDT, Stop date: 12/10/17 12:00:00 CDT Notes: Max acetaminophen 4000 mg/day (4 gm/day). (Same as: Tylenol Extra Streng th) Start Date: 12/09/17 Stop Date: 12/10/17 Status: Discontinued ActHIB intramuscular injection 0.5 ml, Route: IM, Drug Form: INJ, Dosing Weight 84.5, kg, ONCALL, Start date: 0 12/13/17 11:00:00 CDT, Duration: 1 doses or times Notes: (Same as: Act Hib) Haemophilus Influenzae Conjugate Vaccine (tetanus toxi d conjugate). Start Date: 12/13/17 Stop Date: 12/14/17 Status: Discontinued albuterol 0.083% inhalation solution 20 mg, 24.1 mL, Route: NEB, Drug form: SOLN, ONCE, Dosing Weight 84.5, kg, Start date: 12/08/17 0:14:00 CDT, Stop date: 12/08/17 0:14:00 CDT Notes: SEE RT DOCUMENTATION (Same as: Shavonne) Start Date: 12/08/17 Stop Date: 12/08/17 Status: Completed albuterol 0.083% inhalation solution 2.49 mg, 3 mL, Route: NEB, Drug form: SOLN, PRN, kg, PRN Respiratory Protocol, S tart date: 12/07/17 22:35:00 CDT, Duration: 30 day, Stop date: 01/06/18 22:34:00 CDT Notes: SEE RT DOCUMENTATION (Same as: Proventil) Start Date: 12/07/17 Stop Date: 12/15/17 Status: Discontinued baclofen 5 mg, 0.5 tab, Route: PO, Drug form: TAB, Q8Hnow, Dosing Weight 84.5, kg, PRN Hi ccups, Start date: 12/11/17 12:48:00 CDT, Duration: 30 day, Stop date: 01/10/18 12:47:00 CDT Notes: (Same As: Lioresal) Start Date: 12/11/17 Stop Date: 12/13/17 Status: Discontinued Benadryl 50 mg, 1 mL, Route: IV, Drug form: INJ, ONCE, Dosing Weight 84.5, kg, Priority: STAT, Start date: 12/08/17 6:32:00 CDT, Stop date: 12/08/17 6:32:00 CDT Notes: (Same as: Benadryl) Start Date: 12/08/17 Stop Date: 12/08/17 Status: Completed budesonide 1 mg, 4 mL, Route: NEB, Drug form: SUSP, BID, Dosing Weight 84.5, kg, Start date : 12/08/17 9:00:00 CDT, Duration: 30 day, Stop date: 01/06/18 17:00:00 CDT Notes: (Same As: Pulmicort) Start Date: 12/08/17 Stop Date: 12/13/17 Status: Discontinued calcium carbonate 500 mg (200 mg elemental calcium) oral tablet 1,000 mg, 2 tab, Route: PO, Drug form: CHEWTAB, PRN, kg, PRN Abnormal Lab Result , FOR ICU USE ONLY, Start date: 12/07/17 22:35:00 CDT, Duration: 30 day, Stop da te: 01/06/18 22:34:00 CDT Notes: (Same As: Victor Hugo)Calcium Carbonate 500 mg = 200 mg elemental calcium Dose = mg calcium carbonate ( mg elemental calcium) Start Date: 12/07/17 Stop Date: 12/13/17 Status: Discontinued calcium carbonate 500 mg (200 mg elemental calcium) oral tablet 500 mg, 1 tab, Route: PO, Drug form: CHEWTAB, PRN, kg, PRN Abnormal Lab Result, FOR ICU USE ONLY, Start date: 12/07/17 22:35:00 CDT, Duration: 30 day, Stop date : 01/06/18 22:34:00 CDT Notes: (Same As: Tums)Calcium Carbonate 500 mg = 200 mg elemental calcium Dose = mg calcium carbonate ( mg elemental calcium) Start Date: 12/07/17 Stop Date: 12/13/17 Status: Discontinued calcium chloride (ANES) Route: IV, Drug form: INJ, ONCE, Stop date: 12/08/17 9:58:00 CDT Start Date: 12/08/17 Stop Date: 12/08/17 Status: Completed calcium gluconate 1 gm, 50 mL, Route: IVPB, Drug form: INJ, PRN, kg, PRN Abnormal Lab Result, Star t date: 12/07/17 22:35:00 CDT, Duration: 30 day, Stop date: 01/06/18 22:34:00 CD T, FOR ICU USE ONLY Notes: WASTE: F/P - Sink; E - Municipal Trash Bin Start Date: 12/07/17 Stop Date: 12/13/17 Status: Discontinued calcium gluconate + Sodium Chloride 0.9% IV 150 mL 3,000 mg, 30 mL, Route: IVPB, ONCE, Dosing Weight 84.5, kg, Priority: NOW, Start date: 12/08/17 0:03:00 CDT, Stop date: 12/08/17 0:03:00 CDT Notes: WASTE: F/P - Sink; E - Municipal Trash Bin Start Date: 12/08/17 Stop Date: 12/08/17 Status: Completed ceFAZolin (ANES) Route: IV, Drug form: INJ, ONCE, Stop date: 12/08/17 9:13:00 CDT Start Date: 12/08/17 Stop Date: 12/08/17 Status: Completed celecoxib 200 mg, 1 cap, Route: PO, Drug form: CAP, Q12H, Dosing Weight 84.5, kg, Priority : NOW, Start date: 12/08/17 11:13:00 CDT, Duration: 48 hr, Stop date: 12/10/17 9 :00:00 CDT Notes: NSAID. Please check indication. Not for seizure. (Same As: CeleBREX) Start Date: 12/08/17 Stop Date: 12/10/17 Status: Completed chlorproMAZINE 50 mg, 2 tab, Route: PO, Drug form: TAB, ONCE, Dosing Weight 84.5, kg, Priority: STAT, Start date: 12/13/17 10:26:00 CDT, Stop date: 12/13/17 10:26:00 CDT Notes: (Same As: Thorazine) Start Date: 12/13/17 Stop Date: 12/13/17 Status: Completed chlorproMAZINE 25 mg, 1 tab, Route: PO, Drug form: TAB, TID, Dosing Weight 84.5, kg, Start date : 12/13/17 13:00:00 CDT, Duration: 30 day, Stop date: 01/12/18 9:00:00 CDT Notes: (Same As: Thorazine) Start Date: 12/13/17 Stop Date: 12/15/17 Status: Discontinued chlorproMAZINE 25 mg oral tablet 25 mg = 1 tab, PO, BID, # 10 tab, 0 Refill(s) Start Date: 12/15/17 Stop Date: 12/20/17 Status: Ordered Dextrose 50% Syringe 25 gm, 50 mL, Route: IVP, Drug Form: INJ, Dosing Weight 84.5, kg, ONCE, Start da te: 12/08/17 0:14:00 CDT, Stop date: 12/08/17 0:14:00 CDT Start Date: 12/08/17 Stop Date: 12/08/17 Status: Completed diphenhydrAMINE 50 mg, 2 cap, Route: PO, Drug form: CAP, ONCE, Dosing Weight 84.5, kg, Start giovanni e: 12/08/17 2:16:00 CDT, Stop date: 12/08/17 2:16:00 CDT Notes: (Same as: Benadryl) Start Date: 12/08/17 Stop Date: 12/08/17 Status: Completed docusate 100 mg, 1 cap, Route: PO, Drug form: CAP, Q12H, Dosing Weight 84.5, kg, Start da te: 12/08/17 21:00:00 CDT, Duration: 30 day, Stop date: 01/07/18 9:00:00 CDT Notes: (Same as: Colace) (Do Not Crush) Start Date: 12/08/17 Stop Date: 12/15/17 Status: Discontinued fentaNYL (ANES) Route: IV, Drug form: INJ, ONCE, Stop date: 12/08/17 9:43:00 CDT Start Date: 12/08/17 Stop Date: 12/08/17 Status: Completed ferrous sulfate 325 mg, 1 tab, Route: PO, Drug form: TAB, Daily, Dosing Weight 84.5, kg, Start d ate: 12/15/17 9:00:00 CDT, Duration: 30 day, Stop date: 01/13/18 9:00:00 CDT Notes: Give with food.iron elemental [id number] as ferrous sulfateDose=___mg wolfgang mental iron Start Date: 12/15/17 Stop Date: 12/15/17 Status: Discontinued folic acid 1 mg, 1 tab, Route: PO, Drug form: TAB, Daily, Dosing Weight 84.5, kg, Start giovanni e: 12/10/17 9:00:00 CDT, Duration: 5 day, Stop date: 12/14/17 9:00:00 CDT Notes: (Same as: Folvite) Start Date: 12/10/17 Stop Date: 12/14/17 Status: Completed furosemide 40 mg, Route: IVP, Drug form: INJ, ONCE, Dosing Weight 84.5, kg, Start date: 17:47:00 CDT, Stop date: 12/09/17 17:47:00 CDT Start Date: 12/09/17 Stop Date: 12/09/17 Status: Completed furosemide 40 mg, 4 mL, Route: IVP, Drug form: INJ, ONCE, Dosing Weight 84.5, kg, Start giovanni e: 12/09/17 9:27:00 CDT, Stop date: 12/09/17 9:27:00 CDT Notes: (Same as: Lasix) MEDICATION WASTE Product Size: 40 mgProduct Was chente: ___ mg Start Date: 12/09/17 Stop Date: 12/09/17 Status: Completed furosemide 40 mg, Route: IVP, Drug form: INJ, Daily, Dosing Weight 84.5, kg, Start date: 9:00:00 CDT, Duration: 30 day, Stop date: 01/08/18 9:00:00 CDT Start Date: 12/10/17 Stop Date: 12/09/17 Status: Canceled glycopyrrolate (ANES) Route: IV, Drug form: INJ, ONCE, Stop date: 12/08/17 10:03:00 CDT Start Date: 12/08/17 Stop Date: 12/08/17 Status: Completed haemophilus b conjugate (HbOC) vaccine 0.5 ml, Route: IM, Drug Form: SOLN, Dosing Weight 84.5, kg, ONCALL, Within 24 ho urs, Start date: 12/08/17 14:00:00 CDT, Duration: 1 day, Stop date: 12/09/17 13: 59:00 CDT Start Date: 12/08/17 Stop Date: 12/08/17 Status: Discontinued haemophilus b conjugate (PRP-OMP) vaccine intramuscular suspension 0.5 ml, Route: IM, Drug Form: SUSP, Dosing Weight 84.5, kg, ONCE, Start date: 11:47:00 CDT, Stop date: 12/08/17 11:47:00 CDT Start Date: 12/08/17 Stop Date: 12/08/17 Status: Discontinued haemophilus b conjugate (PRP-OMP) vaccine intramuscular suspension 0.5 ml, Route: IM, Drug Form: SUSP, Dosing Weight 84.5, kg, ONCALL, Start date: 12/08/17 12:00:00 CDT, Duration: 30 day, Stop date: 01/07/18 11:59:00 CDT Start Date: 12/08/17 Stop Date: 12/08/17 Status: Discontinued haemophilus b conjugate (PRP-T) vaccine 0.5 mL, Route: IM, Drug Form: INJ, ONCALL, Start date: 12/08/17 13:00:00 CDT, Du ration: 30 day, Stop date: 01/07/18 12:59:00 CDT Notes: (Same as: Act Hib) Haemophilus Influenzae Conjugate Vaccine (tetanus toxi d conjugate). Start Date: 12/08/17 Stop Date: 12/13/17 Status: Discontinued hydrocortisone 200 mg, 4 mL, Route: IV, Drug form: PDR/INJ, ONCE, Dosing Weight 84.5, kg, Prior ity: STAT, Start date: 12/08/17 6:32:00 CDT, Stop date: 12/08/17 6:32:00 CDT Notes: (Same as: Solu-CORTEF) Start Date: 12/08/17 Stop Date: 12/08/17 Status: Completed Insulin regular 10 unit, 0.1 mL, Route: IVP, Drug form: SOLN, ONCE, Dosing Weight 84.5, kg, Star t date: 12/08/17 0:14:00 CDT, Stop date: 12/08/17 0:14:00 CDT Notes: (Same as: Humulin R) Roll in palms of hands gently; Do not shake vigorou sly. "single patient use only"(Restricted to patients requiring a dose > 60 units)WASTE: F/P - Black; E - Voice Of TV Trash Bin Stable for 28 days at room temperatureExpires in days from Date Start Date: 12/08/17 Stop Date: 12/08/17 Status: Completed ipratropium 0.5 mg, 2.5 mL, Route: NEB, Drug form: SOLN, PRN, kg, PRN Respiratory Protocol, Start date: 12/07/17 22:35:00 CDT, Duration: 30 day, Stop date: 01/06/18 22:34:0 0 CDT Notes: SEE RT DOCUMENTATION(Same as:Atrovent) Start Date: 12/07/17 Stop Date: 12/08/17 Status: Discontinued ipratropium 0.02% inhalation solution 0.5 mg, 2.5 mL, Route: NEB, Drug form: SOLN, Q6H, Dosing Weight 84.5, kg, Start date: 12/08/17 12:00:00 CDT, Duration: 30 day, Stop date: 01/07/18 6:00:00 CDT Notes: SEE RT DOCUMENTATION(Same as:Atrovent) Start Date: 12/08/17 Stop Date: 12/13/17 Status: Discontinued iron sulfate (ferrous sulfate) 325 mg oral tablet 325 mg = 1 tab, PO, TID, # 90 tab, 0 Refill(s) Start Date: 12/15/17 Stop Date: 01/14/18 Status: Ordered Isolyte S PH 7.4 (ANES) 1000 mL Route: IV, Total Volume: 1,000, Start date: 12/08/17 8:31:00 CDT, Stop date: 9:31:00 CDT Start Date: 12/08/17 Stop Date: 12/08/17 Status: Completed ketOROLAC 30 mg, 1 mL, Route: IVP, Drug form: INJ, ONCE, Dosing Weight 84.5, kg, Priority: NOW, Start date: 12/08/17 11:13:00 CDT, Stop date: 12/08/17 11:13:00 CDT Notes: (Same as:Toradol) IV bolus must be given >15 seconds. Give IM administration slowly and deeply into the muscle.Not for use > 4 days MEDICATION WASTE Product Size: 30 mgProduct Wasted: ___ mg Start Date: 12/08/17 Stop Date: 12/08/17 Status: Completed Lasix 40 mg, Route: IVP, Drug form: INJ, ONCE, Dosing Weight 84.5, kg, Start date: 8:15:00 CDT, Stop date: 12/10/17 8:15:00 CDT Start Date: 12/10/17 Stop Date: 12/10/17 Status: Completed Lasix 20 mg, Route: IVP, Drug form: INJ, ONCE, Dosing Weight 84.5, kg, Priority: NOW, Start date: 12/08/17 6:17:00 CDT, Stop date: 12/08/17 6:17:00 CDT Start Date: 12/08/17 Stop Date: 12/08/17 Status: Completed Lasix 40 mg, 4 mL, Route: IV, Drug form: INJ, Q12H, Dosing Weight 84.5, kg, Priority: Within 4 hours, Start date: 12/10/17 21:00:00 CDT, Duration: 3 doses or times, S top date: 12/11/17 21:00:00 CDT Notes: (Same as: Lasix) MEDICATION WASTE Product Size: 40 mgProduct Was chente: ___ mg Start Date: 12/10/17 Stop Date: 12/11/17 Status: Completed Lasix 40 mg, 4 mL, Route: IV, Drug form: INJ, ONCE, Dosing Weight 84.5, kg, Priority: NOW, Start date: 12/09/17 6:07:00 CDT, Stop date: 12/09/17 6:07:00 CDT Notes: (Same as: Lasix) MEDICATION WASTE Product Size: 40 mgProduct Was chente: ___ mg Start Date: 12/09/17 Stop Date: 12/09/17 Status: Completed levofloxacin 750 mg, 1 tab, Route: PO, Drug form: TAB, [id number], Dosing Weight 84.5, kg, Start date: 12/08/17 2:00:00 CDT, Duration: 5 day, Stop date: 12/12/17 2:00:00 CDT, A BX Indication: Pneumonia Notes: Do not give w/antacids, dairy pdt & mineralsTake 1 hr before or 2 hr after dairy products Start Date: 12/08/17 Stop Date: 12/11/17 Status: Discontinued LORazepam 2 mg, 1 mL, Route: IVP, Drug form: INJ, Q2H, Dosing Weight 84.5, kg, PRN Other - See Comment, CIWA Score 8 -14, Start date: 12/09/17 9:02:00 CDT, Duration: 30 da y, Stop date: 01/08/18 9:01:00 CDT Notes: (Same as: Ativan) Start Date: 12/09/17 Stop Date: 12/13/17 Status: Discontinued LORazepam 4 mg, 2 mL, Route: IVP, Drug form: INJ, Q2H, Dosing Weight 84.5, kg, PRN Other - See Comment, CIWA Score 15-20, Start date: 12/09/17 9:02:00 CDT, Duration: 30 da y, Stop date: 01/08/18 9:01:00 CDT Notes: (Same as: Ativan) Start Date: 12/09/17 Stop Date: 12/13/17 Status: Discontinued LORazepam 6 mg, 3 mL, Route: IVP, Drug form: INJ, Q2H, Dosing Weight 84.5, kg, PRN Other - See Comment, CIWA Score > 20, Start date: 12/09/17 9:02:00 CDT, Duration: 30 day, Stop date: 01/08/18 9:01:00 CDT Notes: (Same as: Ativan) Start Date: 12/09/17 Stop Date: 12/13/17 Status: Discontinued magnesium oxide 800 mg, 2 tab, Route: PO, Drug form: TAB, PRN, kg, PRN Abnormal Lab Result, FOR ICU USE ONLY, Start date: 12/07/17 22:35:00 CDT, Duration: 30 day, Stop date: 22:34:00 CDT Notes: (Same as: Mag-Ox 400)Magnesium oxide [id number] elemental magnesiumDose= ____mg magnesium oxide (___mg elemental magnesium) Start Date: 12/07/17 Stop Date: 12/13/17 Status: Discontinued magnesium sulfate 2 gm, 50 mL, Route: IVPB, Drug form: INJ, PRN, kg, PRN Abnormal Lab Result, Star t date: 12/07/17 22:35:00 CDT, Duration: 30 day, Stop date: 01/06/18 22:34:00 CD T, FOR ICU USE ONLY Notes: WASTE: F/P - Sink; E - Municipal Trash Bin Start Date: 12/07/17 Stop Date: 12/13/17 Status: Discontinued meningococcal polysaccharide vaccine 0.5 ml, Route: SUB-Q, Dosing Weight 84.5, kg, ONCALL, Within 24 hours, Start giovanni e: 12/08/17 14:00:00 CDT Start Date: 12/08/17 Stop Date: 12/08/17 Status: Discontinued meningococcal polysaccharide vaccine 0.5 ml, Route: SUB-Q, Drug Form: PDR/INJ, Dosing Weight 84.5, kg, ONCALL, Start date: 12/08/17 12:00:00 CDT, Duration: 30 day, Stop date: 01/07/18 11:59:00 CDT Notes: (Same as: Menomune A/C/Y/W-135) (meningococcal polysaccharide vaccine 0. 5ml/dose INJ)WASTE: F/P - Black; E - Municipal Trash Bin Start Date: 12/08/17 Stop Date: 12/14/17 Status: Discontinued meningococcal polysaccharide vaccine 0.5 ml, Route: SUB-Q, Drug Form: PDR/INJ, Dosing Weight 84.5, kg, ONCALL, NOW, S tart date: 12/14/17 16:39:00 CDT, Duration: 30 day, Stop date: 01/13/18 16:38:00 CDT Notes: (Same as: Mekhi A/C/Y/W-135) (meningococcal polysaccharide vaccine 0. 5ml/dose INJ)WASTE: F/P - Black; E - DLS Bin Start Date: 12/14/17 Stop Date: 12/15/17 Status: Deleted methadone 5 mg, 1 tab, Route: PO, Drug form: TAB, Q8H, Dosing Weight 84.5, kg, PRN Pain Sc ore 7-10, Start date: 12/10/17 11:45:00 CDT, Duration: 30 day, Stop date: 11:44:00 CDT Notes: (Same as: Dolophine) Start Date: 12/10/17 Stop Date: 12/13/17 Status: Discontinued methadone 5 mg, 1 tab, Route: PO, Drug form: TAB, Q8H, Dosing Weight 84.5, kg, Priority: N OW, Start date: 12/08/17 11:13:00 CDT, Duration: 30 day, Stop date: 01/07/18 8:0 0:00 CDT Notes: (Same as: Dolophine) Start Date: 12/08/17 Stop Date: 12/10/17 Status: Discontinued metoprolol (ANES) Route: IV, Drug form: INJ, ONCE, Stop date: 12/08/17 10:08:00 CDT Start Date: 12/08/17 Stop Date: 12/08/17 Status: Completed MiraLax 17 gm, 1 pkt, Route: PO, Drug form: PWDR, BID, Dosing Weight 84.5, kg, Start giovanni e: 12/12/17 9:00:00 CDT, Duration: 1 day, Stop date: 12/12/17 17:00:00 CDT Notes: Dissolve in 8 oz of water or juice.(Same as: Miralax) Start Date: 12/12/17 Stop Date: 12/12/17 Status: Completed morphine Sulfate 4 mg, 1 mL, Route: IVP, Drug form: INJ, Q3H, kg, PRN Pain Score 7-10, Start date : 12/07/17 22:39:00 CDT, Stop date: 01/06/18 22:38:00 CDT Notes: (Same as:MORPhine Sulfate) Start Date: 12/07/17 Stop Date: 12/13/17 Status: Discontinued morphine Sulfate (ANES) Route: IV, Drug form: INJ, ONCE, Stop date: 12/08/17 10:03:00 CDT Start Date: 12/08/17 Stop Date: 12/08/17 Status: Completed multivitamin 1 tab, Route: PO, Drug Form: TAB, Dosing Weight 84.5, kg, Daily, Start date: 9:00:00 CDT, Duration: 5 day, Stop date: 12/14/17 9:00:00 CDT Notes: (Same as:Therremy)WASTE: F/P - Black; E - Voice Of TV Trash Bin Take with mateus d. Start Date: 12/10/17 Stop Date: 12/14/17 Status: Completed neostigmine (ANES) Route: IV, Drug form: INJ, ONCE, Stop date: 12/08/17 10:03:00 CDT Start Date: 12/08/17 Stop Date: 12/08/17 Status: Completed NexIUM 20 mg oral delayed release capsule 20 mg = 1 cap, PO, Daily, # 30 cap, 0 Refill(s) Start Date: 12/08/17 Status: Ordered [place] 5/325 oral tablet 2 tab, Route: PO, Drug Form: TAB, Dosing Weight 84.5, kg, Q4H, PRN Pain Score 4- 6, Start date: 12/09/17 5:36:00 CDT, Duration: 30 day, Stop date: 01/08/18 5:35: 00 CDT Notes: (Same as: [place] 325/5) Do not exceed 4gm/day of acetaminophen. Start Date: 12/09/17 Stop Date: 12/13/17 Status: Discontinued [place] 5/325 oral tablet 1 tab, Route: PO, Drug Form: TAB, Dosing Weight 84.5, kg, Q4H, PRN Pain Score 1- 3, Start date: 12/09/17 5:36:00 CDT, Duration: 30 day, Stop date: 01/08/18 5:35: 00 CDT Notes: (Same as: [place] 325/5) Do not exceed 4gm/day of acetaminophen. Start Date: 12/09/17 Stop Date: 12/13/17 Status: Discontinued normal saline 0.9% IV 1,000 mL 1,000 mL, Rate: 150 ml/hr, Infuse over: 6.7 hr, Route: IV, Dosing Weight 84.5 kg , Total Volume: 1,000, Start date: 12/08/17 0:03:00 CDT, Duration: 30 day, Stop date: 01/07/18 0:02:00 CDT, 2.04, m2 Start Date: 12/08/17 Stop Date: 12/08/17 Status: Discontinued normal saline 0.9% IV 1,000 mL 1,000 mL, Rate: 100 ml/hr, Infuse over: 10 hr, Route: IV, Dosing Weight 84.5 kg, Total Volume: 1,000, Start date: 12/08/17 8:22:00 CDT, Duration: 30 day, Stop d ate: 01/07/18 8:21:00 CDT, 2.04, m2 Start Date: 12/08/17 Stop Date: 12/09/17 Status: Discontinued NS (Bolus) IV 500 mL, 500 ml/hr, Infuse Over: 1 hr, Route: IV, 500, Drug form: INJ, ONCE, Prio rity: STAT, Dosing Weight 84.5 kg, Start date: 12/08/17 17:04:00 CDT, Stop date: 12/08/17 17:04:00 CDT Start Date: 12/08/17 Stop Date: 12/08/17 Status: Completed nystatin topical 100,000 units/g powder 1 appl, Route: TOP, PRN, Drug form: PWDR, PRN For Fungal Prophylaxis, Start date : 12/07/17 22:35:00 CDT, Duration: 30 day, Stop date: 01/06/18 22:34:00 CDT Notes: (Same as:Mycostatin, Nilstat) For external use only. Start Date: 12/07/17 Stop Date: 12/15/17 Status: Discontinued ondansetron 4 mg, 2 mL, Route: IVP, Drug form: INJ, Q8H, kg, PRN Nausea & Vomiting, Start date: 12/07/17 22:35:00 CDT, Duration: 30 day, Stop date: 01/06/18 22:34:00 CDT Notes: (Same as: Kacy) MEDICATION WASTE Product Size: 4 mgProduct Was chente: ___ mg Start Date: 12/07/17 Stop Date: 12/08/17 Status: Discontinued ondansetron (ANES) Route: IV, Drug form: INJ, ONCE, Stop date: 12/08/17 9:53:00 CDT Start Date: 12/08/17 Stop Date: 12/08/17 Status: Completed phenylephrine (ANES) Route: IV, Drug form: INJ, ONCE, Stop date: 12/08/17 9:23:00 CDT Start Date: 12/08/17 Stop Date: 12/08/17 Status: Completed pneumococcal 13-valent vaccine intramuscular suspension 0.5 mL, Route: IM, Drug Form: INJ, Dosing Weight 84.5, kg, ONCALL, Start date: 0 12/08/17 12:00:00 CDT, Duration: 30 day, Stop date: 01/07/18 11:59:00 CDT Notes: Shake well prior to use (Same as: Prevnar 13) Start Date: 12/08/17 Stop Date: 12/14/17 Status: Discontinued pneumococcal 23-valent vaccine 0.5 ml, Route: IM, Drug Form: INJ, ONCALL, NOW, Start date: 12/08/17 13:27:00 CD T, Duration: 1 doses or times Notes: (Same as: Pneumovax 23) Refrigerate Start Date: 12/08/17 Stop Date: 12/08/17 Status: Discontinued potassium chloride 10 mEq, 100 mL, Route: IVPB, Drug form: INJ, PRN, kg, PRN Abnormal Lab Result, V ia peripheral line, Start date: 12/07/17 22:35:00 CDT, Duration: 30 day, Stop da te: 01/06/18 22:34:00 CDT, FOR ICU USE ONLY Notes: Infuse at a rate of 10 mEq/hr.(Same as: KCL) Start Date: 12/07/17 Stop Date: 12/13/17 Status: Discontinued potassium chloride 20 mEq, 100 mL, Route: IVPB, Drug form: INJ, PRN, kg, PRN Abnormal Lab Result, V ia central line, Start date: 12/07/17 22:35:00 CDT, Duration: 30 day, Stop date: 01/06/18 22:34:00 CDT, FOR ICU USE ONLY Notes: (Same as: KCL) Infuse no faster than 10 mEq/hr if given peripherally. Start Date: 12/07/17 Stop Date: 12/13/17 Status: Discontinued potassium chloride 20 mEq, 15 mL, Route: NJ, Drug form: LIQ, PRN, kg, PRN Abnormal Lab Result, Star t date: 12/07/17 22:35:00 CDT, Duration: 30 day, Stop date: 01/06/18 22:34:00 CD T, FOR ICU USE ONLY Notes: (Same as: Potassium Chloride) Start Date: 12/07/17 Stop Date: 12/13/17 Status: Discontinued potassium chloride 20 mEq, 1 tab, Route: PO, Drug form: ERTAB, PRN, kg, PRN Abnormal Lab Result, St art date: 12/07/17 22:35:00 CDT, Duration: 30 day, Stop date: 01/06/18 22:34:00 CDT, FOR ICU USE ONLY Notes: (Same as: K-Dur 20)"Do Not Crush" With food and full glass of water Start Date: 12/07/17 Stop Date: 12/13/17 Status: Discontinued potassium chloride (ANES) 40 mEq Route: IV, Drug form: INJ, Start date: 12/08/17 9:11:00 CDT, Stop date: 12/08/17 10:11:00 CDT Start Date: 12/08/17 Stop Date: 12/08/17 Status: Completed potassium phosphate + Sodium Chloride 0.9% IV 250 mL 15 mmol, 5 mL, Route: IVPB, PRN,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
--- OUTSIDE RECORDS SUMMARY | 2020-02-02 13:06 | XMS REPORT | Continuity of Care Document ---
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 ABSCESS OF HIP Active 06/09/2019 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 03/23/2018 [facility] LEFT SIDE PNEUMONIA, DEHYDRATION, POLYCT Active 12/07/2017 [facility] HYPOTENSION, INTRAPERITONEAL HEMATOMA Active 12/07/2017 [facility] Pneumonia, unspecified organism 03/23/2018 [facility] Other shock 03/23/2018 [facility] Acute respiratory failure with hypoxia 03/23/2018 [facility] Hemoperitoneum 03/23/2018 [facility] Acute kidney failure, unspecified 03/23/2018 [facility] Acute posthemorrhagic anemia 03/23/2018 [facility] Coagulation defect, unspecified 03/23/2018 [facility] Hyperkalemia 03/23/2018 [facility] Fluid overload, unspecified 03/23/2018 [facility] Nicotine dependence, cigarettes, uncomplicated 03/23/2018 [facility] PNEUMONIA, UNSPECIFIED ORGANISM Active [facility] DEHYDRATION Active [facility] HYPOTENSION, UNSPECIFIED Active [facility] HEMOPERITONEUM Active [facility] CUTANEOUS ABSCESS OF LIMB, UNSPECIFIED Active [facility] Medications Medication Details Route Status Patient Instructions Ordering Provider Order Date Source Acetaminophen 500 MG Oral Tablet 1,000 mg = 2 tab, PO, Q6H, X 14 day, # 112 tab, 0 Refill(s) Active 06/14/2019 [facility] nter Docusate Sodium 50 MG / sennosides, ALF 8.6 MG Oral Tablet 1 tab, PO, BID, X 14 day, # 28 tab, 0 Refill(s) Active 06/14/2019 [facility] nter gabapentin 300 MG Oral Capsule 300 mg = 1 cap, PO, Q8H, # 42 cap, 0 Refill(s) Active 06/14/2019 [facility] methocarbamol 750 mg oral tablet 750 mg = 1 tab, PO, TID, X 7 day, # 21 tab, 0 Refill(s) Active 06/14/2019 [facility] nt pantoprazole 40 mg oral enteric coated tablet 40 mg = 1 tab, PO, Before Breakfast, # 14 tab, 0 Refill(s) Active 06/14/2019 [facility] nter Sulfamethoxazole 800 MG / Trimethoprim 1 60 MG Oral Tablet [Bactrim] 1 tab, PO, [id number], X 6 day, # 12 tab, 0 Refill(s) Active 06/14/2019 [facility] tramadol hydrochloride 50 MG Oral Tablet 100 mg = 2 tab, PO, Q6H, PRN Pain Score 4-6, X 3 day, # 24 tab, 0 Refill(s) Active 06/14/2019 [facility] Sulfamethoxazole 800 MG / Trimethoprim 1 60 MG Oral Tablet [Bactrim] Notes: One DS tablet = trimethoprim 160m g + sulfamethoxazole 800 mg Dose based on trimethoprim component On empty stomach with a glass of water. (Same As: Bactrim DS, Septra DS) No Longer Active 06/13/2019 [facility] nter vancomycin + Sodium Chloride 0.9% IV 250 mL 2001 mg: infuse over 2.5 hours For adult patients only: Round to nearest 250 mg per Medical Staff approval MEDICATION WASTE Product Size: 1000 mg Product Wasted: ___ mg No Longer Active 06/12/2019 [facility] nter Vancomycin 1.25 gm, Route: IVP B, Drug form: INJ, ABXQ8H, Dosing Weight 90.909, kg, Priority: Within 4 hours, Start date: 06/12/19 15:00:00 CDT, Duration: 1 day, Stop date: 06/13/19 7:00:00 CDT, ABX Indication: Skin/Soft Tissue Infection Inactive 06/12/2019 [facility] nter Sulfamethoxazole 800 MG / Trimethoprim 1 60 MG Oral Tablet [Bactrim] Notes: One DS tablet = trimethoprim 160m g + sulfamethoxazole 800 mg Dose based on trimethoprim component On empty stomach with a glass of water. (Same As: Bactrim DS, Septra DS) Inactive 06/12/2019 [facility] nter Robaxin Notes: (Same as:Robaxi n) No Longer Active 06/12/2019 [facility] Tetrahydrocannabinol Notes: (S lynn as: Marinol) No Longer Active 06/12/2019 [facility] Dilaudid 0.5 mg, Route: IVP, O NCE, Dosing Weight 90.909, kg, Priority: STAT, Start date: 06/11/19 14:40:00 CDT, Stop date: 06/11/19 14:40:00 CDT Inactive 06/11/2019 [facility] gabapentin 300 MG Oral Capsule Notes: (Same as: Neurontin) No Longer Active 06/11/2019 [facility] Acetaminophen Notes: Infuse ov er 15 minutes Do not exceed 4gm/day of acetaminophen MEDICATION WASTE Product Size: 1000 mg Product Wasted: ___ mg Inactive 06/11/2019 [facility] nt Morphine Notes: (Same as:MORPh ine Sulfate) Inactive 06/11/2019 [facility] hydromorphone (ANES) + sodium chloride (ANES) 9 mL Route: IV, Drug form: INJ, ONCE, Stop date: 06/10/19 18:30:00 CDT Inactive 06/10/2019 [facility] lidocaine (ANES) Route: IV, Dr ug form: INJ, ONCE, Stop date: 06/10/19 18:24:00 CDT Inactive 06/10/2019 [facility] nter propofol (ANES) Route: IV, Biran g form: INJ, ONCE, Stop date: 06/10/19 18:24:00 CDT Inactive 06/10/2019 [facility] nter rocuronium (ANES) Route: IV, D rug form: INJ, ONCE, Stop date: 06/10/19 18:24:00 CDT Inactive 06/10/2019 [facility] nter succinylcholine (ANES) Route: IV, Drug form: INJ, ONCE, Stop date: 06/10/19 18:24:00 CDT Inactive 06/10/2019 [facility] nter fentaNYL (ANES) Route: IV, Brian g form: INJ, ONCE, Stop date: 06/10/19 18:24:00 CDT Inactive 06/10/2019 [facility] nter Hydralazine 10 mg, Route: IVP, Q20Min, Dosing Weight 90.909, kg, PRN Elevated BP, Start date: 06/10/19 18:16:00 CDT, Duration: 2 doses or times, Stop date: Limited # of times Inactive 06/10/2019 [facility] nter Labetalol 10 mg, Route: IVP, Q 5Min, Dosing Weight 90.909, kg, PRN Elevated BP, Start date: 06/10/19 18:16:00 CDT, Duration: 5 doses or times, Stop date: Limited # of times Inactive 06/10/2019 [facility] nter Oxycodone Hydrochloride 5 MG Oral Tablet 5 mg, Route: PO, Drug form: TAB, Q4H, Dosing Weight 90.909, kg, PRN Pain Score 4-6, Start date: 06/10/19 18:16:00 CDT, Duration: 30 day, Stop date: 07/10/19 18:15:00 CDT Inactive 06/10/2019 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 Naloxone 0.4 mg, Route: IVP, Q 2MIN, Dosing Weight 90.909, kg, PRN Narcotic Reversal, Start date: 06/10/19 18:16:00 CDT, Duration: 8 doses or times, Stop date: Limited # of times Inactive 06/10/2019 [facility] nter Ondansetron 4 mg, Route: IVP, ONCE, Dosing Weight 90.909, kg, PRN Nausea & Vomiting, Start date: 06/10/19 18:16:00 CDT Inactive 06/10/2019 [facility] midazolam (ANES) Route: IV, Dr fuentes form: SOLN, ONCE, Stop date: 06/10/19 17:44:00 CDT Inactive 06/10/2019 [facility] n[facility] Lactated Ringers Injection IV (ANES) 1000 mL Route: IV, Total Volume: 1,000, Start date: 06/10/19 17:12:00 CDT, Stop date: 06/10/19 18:12:00 CDT Inactive 06/10/2019 [facility] remove patch Notes: Remove pat ch 12 hours after application each day. No Longe r Active 06/10/2019 [facility] nter Acetaminophen 300 MG / Codeine Phosphate 30 MG Oral Tablet 1 tab, PO, Q6H, PRN pain, # 20 tab, 0 Refill(s) No Longer Active 06/10/2019 [facility] vancomycin 2001 mg: infuse ov er 2.5 hours For adult patients only: Round to nearest 250 mg per Medical Staff approval MEDICATION WASTE Product Size: 1000 mg Product Wasted: ___ mg Inactive 06/10/2019 [facility] Ondansetron 2 MG/ML Injectable Solution [Zofran] Notes: (Same as: Zofran) MEDICATION WASTE Product Size: 4 mg Product Wasted: ___ mg Inactive 06/10/2019 [facility] Nicotine Notes: (Same as: Mercedes gates) "Remove old patch before application of new patch" WASTE: F/P - P Waste Black; E - P Waste Black No Longer Active 06/10/2019 [facility] remove patch Notes: Remove old patch before application of new patch. WASTE: F/P - P Waste Black; E - P Waste Black No Longer Active 06/10/2019 [facility] Docusate Sodium 50 MG / sennosides, ALF 8.6 MG Oral Tablet Notes: (Same as Senokot-S) Equiv. to Isis-Colace. No Longer Active 06/10/2019 [facility] meropenem Notes: (Same as: Chanda rem) . MEDICATION WASTE Product Size: 1000 mg Product Wasted: ___ mg No Longer Active 06/10/2019 [facility] pantoprazole Notes: Tablet china uld not be chewed or crushed. (Same as: Protonix) N o Longer Active 06/10/2019 [facility] nter Tylenol Notes: Max acetaminoph en 4000 mg/day (4 gm/day). (Same as: Tylenol Extra Strength) No Longer Active 06/10/2019 [facility] n[facility] Tramadol 50 mg, Route: PO, Brian g form: TAB, Q6H, Dosing Weight 90.909, kg, Start date: 06/10/19 6:00:00 CDT, Duration: 30 day, Stop date: 07/10/19 0:00:00 CDT Inactive 06/10/2019 [facility] n[facility] Lidocaine Hydrochloride 0.05 MG/MG Trans dermal Patch [Lidoderm] Notes: Apply only once for up to 12 hour s in a 24-hour period (12 hours on and 12 hours off). (Same as: Lidoderm) "Remove old patch before application of new patch" No Longer Active 06/10/2019 [facility] Vancomycin 2001 mg: infuse ov er 2.5 hours Inactive 06/10/2019 [facility] heparin Notes: porcine heparin No Longer Active 06/10/2019 [facility] heparin sodium, porcine 2500 UNT/ML Injectable Solutio n Notes: porcine heparin Inactiv e 06/10/2019 [facility] Tramadol Notes: Not to exceed 400mg/day. (Same As: Ultram) No Longer Active 06/10/2019 [facility] Vancomycin 800 mg, Route: IV, ONCE, Dosing Weight 90.909, kg, Start date: 06/10/19 1:20:00 CDT, Stop date: 06/10/19 1:20:00 CDT, ABX Indication: Skin/Soft Tissue Infection Inactive 06/10/2019 [facility] nter Isolyte S PH 7.4 1,000 mL Note s: (Same as: Isolyte S PH 7.4) No Longer Active 06/10/2019 [facility] meropenem Notes: Same as Kelvin valencia MEDICATION WASTE Product Size: 500 mg Product Wasted: _0__ mg Inactive 06/10/2019 [facility] Morphine Notes: (Same as:MORPh ine Sulfate) Inactive 06/10/2019 [facility] ferrous sulfate 325 MG Oral Tablet 325 mg = 1 tab, PO, TID, # 90 tab, 0 Refill(s) Active 12/15/2017 [facility] chlorproMAZINE 25 mg oral tablet 25 mg = 1 tab, PO, BID, # 10 tab, 0 Refill(s) Active 12/15/2017 [facility] ferrous sulfate Notes: Give wi th food. iron elemental [id number] as ferrous sulfate Dose=___mg elemental iron Inactive 12/15/2017 [facility] meningococcal group A polysaccharide / m eningococcal group C polysaccharide / MENINGOCOCCAL POLYSACCHARIDE VACCINE GROUP W-135 / MENINGOCOCCAL POLYSACCHARIDE VACCINE GROUP Y Notes: (Same as: Menomune A/C/Y/W-135) (meningococcal polysaccharide vaccine 0.5ml/dose INJ) WASTE: F/P - Black; E - Municipal Trash Bin No Longer Active 12/14/2017 [facility] Chlorpromazine Notes: (Same As : Thorazine) No Longer Active 12/13/2017 [facility] Haemophilus influenzae type b strain 148 2, capsular polysaccharide inactivated tetanus toxoid conjugate vaccine 0.068 MG/ML Injectable Solution [ActHIB] Notes: (Same as: Act Hib) Haemophilus I nfluenzae Conjugate Vaccine (tetanus toxid conjugate). No Longer Active 12/13/2017 [facility] Chlorpromazine Notes: (Same As : Thorazine) Inactive 12/13/2017 [facility] Protonix 20 mg, Route: PO, Brian g form: ECTAB, Before Dinner, Dosing Weight 84.5, kg, Start date: 12/12/17 16:30:00 CDT, Duration: 30 day, Stop date: 01/10/18 16:30:00 CDT Inactive 12/12/2017 [facility] Miralax Notes: Dissolve in 8 o z of water or juice. (Same as: Miralax) Inactive 12/12/2017 [facility] Baclofen Notes: (Same As: Delvin esal) No Longer Active 12/11/2017 [facility] Zosyn Notes: (Same as: Zosyn) Dosing based on Piperacillin component MEDICATION WASTE Product Size: 3375 mg Product Wasted: ___ mg No Longer Active 12/11/2017 [facility] Lasix Notes: (Same as: Lasix) MEDICATION WASTE Product Size: 40 mg Product Wasted: ___ mg No Longer Active 12/11/2017 [facility] Tramadol Notes: Not to exceed 400mg/day. (Same As: Ultram) No Longer Active 12/10/2017 [facility] Methadone Notes: (Same as: Dol ophine) No Longer Active 12/10/2017 [facility] Acetaminophen Notes: Max aceta minophen 4000 mg/day (4 gm/day). (Same as: Tylenol Extra Strength) Inactive 12/10/2017 [facility] multivitamin Notes: (Same as:Frank de la garza) WASTE: F/P - Black; E - Municipal Trash Bin Take with food. No Longer Active 12/10/2017 [facility] Thiamine 100 mg, Route: PO, Da sheron, Dosing Weight 84.5, kg, Start date: 12/10/17 9:00:00 CDT, Duration: 5 day, Stop date: 12/14/17 9:00:00 CDT No Longer Active 12/10/2017 [facility] Folic Acid Notes: (Same as: Fo lvite) No Longer Active 12/10/2017 [facility] Furosemide 40 mg, Route: IVP, Drug form: INJ, Daily, Dosing Weight 84.5, kg, Start date: 12/10/17 9:00:00 CDT, Duration: 30 day, Stop date: 01/08/18 9:00:00 CDT No Longer Active 12/10/2017 [facility] Lasix 40 mg, Route: IVP, Drug form: INJ, ONCE, Dosing Weight 84.5, kg, Start date: 12/10/17 8:15:00 CDT, Stop date: 12/10/17 8:15:00 CDT Inactive 12/10/2017 [facility] Acetaminophen Notes: Max aceta minophen 4000 mg/day (4 gm/day). (Same as: Tylenol Extra Strength) No Longer Active 12/09/2017 [facility] Furosemide 40 mg, Route: IVP, Drug form: INJ, ONCE, Dosing Weight 84.5, kg, Start date: 12/09/17 17:47:00 CDT, Stop date: 12/09/17 17:47:00 CDT Inactive 12/09/2017 [facility] Furosemide Notes: (Same as: Alexandra mcdowell) MEDICATION WASTE Product Size: 40 mg Product Wasted: ___ mg Inactive 12/09/2017 [facility] Lorazepam Notes: (Same as: Ati van) No Longer Active 12/09/2017 [facility] Vitamin B1 Notes: (Same As: Vi tamin B1) Inactive 12/09/2017 [facility] Protonix Notes: Tablet should not be chewed or crushed. (Same as: Protonix) No Longer Active 12/09/2017 [facility] Lasix Notes: (Same as: Lasix) MEDICATION WASTE Product Size: 40 mg Product Wasted: ___ mg Inactive 12/09/2017 [facility] Acetaminophen 325 MG / Hydrocodone Blanca trate 5 MG Oral Tablet [[place] 5/325] Notes: (Same as: [place] 325/5) Do not ex ceed 4gm/day of acetaminophen. No Longer Activ e 12/09/2017 [facility] Robitussin-AC oral syrup Notes : (Same As: Robitussin AC) No Longer Active 12/09/2017 [facility] sennosides, ALF Notes: (Same a s: Senokot) No Longer Active 12/09/2017 [facility] Docusate Notes: (Same as: Cola ce) (Do Not Crush) No Longer Active 12/09/2017 [facility] Protonix Notes: Tablet should not be chewed or crushed. (Same as: Protonix) Inactive 12/09/2017 [facility] NS (Bolus) IV 500 mL, 500 ml/h r, Infuse Over: 1 hr, Route: IV, 500, Drug form: INJ, ONCE, Priority: STAT, Dosing Weight 84.5 kg, Start date: 12/08/17 17:04:00 CDT, Stop date: 12/08/17 17:04:00 CDT Inactive 12/08/2017 [facility] Zofran Notes: (Same as: Zofran ) MEDICATION WASTE Product Size: 4 mg Product Wasted: ___ mg No Longer Active 12/08/2017 [facility] diphtheria toxoid vaccine, inactivated / Haemophilus capsular oligosaccharide 0.5 ml, Route: IM, Drug Form: SOLN, Dosi ng Weight 84.5, kg, ONCALL, Within 24 hours, Start date: 12/08/17 14:00:00 CDT, Duration: 1 day, Stop date: 12/09/17 13:59:00 CDT Inactive 12/08/2017 [facility] meningococcal group A polysaccharide / m eningococcal group C polysaccharide / MENINGOCOCCAL POLYSACCHARIDE VACCINE GROUP W-135 / MENINGOCOCCAL POLYSACCHARIDE VACCINE GROUP Y 0.5 ml, Route: SUB-Q, Dosing Weight 84.5, kg, ONCALL, Within 24 hours, Start date: 12/08/17 14:00:00 CDT Inactive 12/08/2017 [facility] pneumococcal capsular polysaccharide typ e 1 vaccine / pneumococcal capsular polysaccharide type 10A vaccine / pneumococcal capsular polysaccharide type 11A vaccine / pneumococcal capsular polysaccharide type 12F vaccine / pneumococcal capsular polysacchar Notes: (Same as: Pneumovax 23) Refrigerate Inactive 12/08/2017 [facility] haemophilus b conjugate (PRP-T) vaccine Notes: (Same as: Act Hib) Haemophilus Influenzae Conjugate Vaccine (tetanus toxid conjugate). No Longer Active 12/08/2017 [facility] acetaminophen Notes: Infuse ov er 15 minutes Do not exceed 4gm/day of acetaminophen MEDICATION WASTE Product Size: 1000 mg Product Wasted: ___ mg No Longer Active 12/08/2017 [facility] pneumococcal 13-valent vaccine intramuscular suspensio n Notes: Shake well prior to use (Same as: Prevnar 13) No Longer Active 12/08/2017 [facility] Ipratropium [place] 0.2 MG/ML Inhalant Solution Notes: SEE RT DOCUMENTATION (Same as:Atrovent) No Longer Active 12/08/2017 [facility] meningococcal group A polysaccharide / m eningococcal group C polysaccharide / MENINGOCOCCAL POLYSACCHARIDE VACCINE GROUP W-135 / MENINGOCOCCAL POLYSACCHARIDE VACCINE GROUP Y Notes: (Same as: Menomune A/C/Y/W-135) (meningococcal polysaccharide vaccine 0.5ml/dose INJ) WASTE: F/P - Black; E - Municipal Trash Bin No Longer Active 12/08/2017 [facility] Haemophilus capsular oligosaccharide 0.0 15 MG/ML / Neisseria meningitidis 0.25 MG/ML Injectable Suspension 0.5 ml, Route: IM, Drug Form: SUSP, Dosing Weight 84.5, kg, ONCALL, Start date: 12/08/17 12:00:00 CDT, Duration: 30 day, Stop date: 01/07/18 11:59:00 CDT Inactive 12/08/2017 [facility] Haemophilus capsular oligosaccharide 0.0 15 MG/ML / Neisseria meningitidis 0.25 MG/ML Injectable Suspension 0.5 ml, Route: IM, Drug Form: SUSP, Dosing Weight 84.5, kg, ONCE, Start date: 12/08/17 11:47:00 CDT, Stop date: 12/08/17 11:47:00 CDT Inactive 12/08/2017 [facility] Tramadol Notes: Not to exceed 400mg/day. (Same As: Ultram) No Longer Active 12/08/2017 [facility] Ketorolac 4 days MEDICA TION WASTE Product Size: 30 mg Product Wasted: ___ mg Inactive 12/08/2017 [facility] celecoxib Notes: NSAID. Please check indication. Not for seizure. (Same As: CeleBREX) N o Longer Active 12/08/2017 [facility] pregabalin Notes: (Same as: Ly richy) No Longer Active 12/08/2017 [facility] Acetaminophen Notes: Infuse ov er 15 minutes Do not exceed 4gm/day of acetaminophen MEDICATION WASTE Product Size: 1000 mg Product Wasted: ___ mg Inactive 12/08/2017 [facility] Methadone Notes: (Same as: Dol ophine) No Longer Active 12/08/2017 [facility] metoprolol (ANES) Route: IV, D rug form: INJ, ONCE, Stop date: 12/08/17 10:08:00 CDT Inactive 12/08/2017 [facility] glycopyrrolate (ANES) Route: I V, Drug form: INJ, ONCE, Stop date: 12/08/17 10:03:00 CDT Inactive 12/08/2017 [facility] neostigmine (ANES) Route: IV, Drug form: INJ, ONCE, Stop date: 12/08/17 10:03:00 CDT Inactive 12/08/2017 [facility] morphine Sulfate (ANES) Route: IV, Drug form: INJ, ONCE, Stop date: 12/08/17 10:03:00 CDT Inactive 12/08/2017 [facility] calcium chloride (ANES) Route: IV, Drug form: INJ, ONCE, Stop date: 12/08/17 9:58:00 CDT Inactive 12/08/2017 [facility] ondansetron (ANES) Route: IV, Drug form: INJ, ONCE, Stop date: 12/08/17 9:53:00 CDT Inactive 12/08/2017 [facility] propofol (ANES) Route: IV, Brian g form: INJ, ONCE, Stop date: 12/08/17 9:43:00 CDT Inactive 12/08/2017 [facility] fentaNYL (ANES) Route: IV, Brian g form: INJ, ONCE, Stop date: 12/08/17 9:43:00 CDT Inactive 12/08/2017 [facility] rocuronium (ANES) Route: IV, D rug form: INJ, ONCE, Stop date: 12/08/17 9:43:00 CDT Inactive 12/08/2017 [facility] Sodium Chloride 0.9% IV (ANES) 500 mL Route: IV, Total Volume: 500, Start date: 12/08/17 9:38:00 CDT, Stop date: 12/08/17 10:38:00 CDT Inactive 12/08/2017 [facility] phenylephrine (ANES) Route: IV , Drug form: INJ, ONCE, Stop date: 12/08/17 9:23:00 CDT Inactive 12/08/2017 [facility] ceFAZolin (ANES) Route: IV, Dr ug form: INJ, ONCE, Stop date: 12/08/17 9:13:00 CDT Inactive 12/08/2017 [facility] potassium chloride (ANES) 40 mEq Route: IV, Drug form: INJ, Start date: 12/08/17 9:11:00 CDT, Stop date: 12/08/17 10:11:00 CDT Inactive 12/08/2017 [facility] Prednisone Notes: Take with fo od. Inactive 12/08/2017 [facility] Budesonide Notes: (Same As: Pu lmicort) No Longer Active 12/08/2017 [facility] Saline Flush 0.9% Notes: (Same as: BD Posiflush) No Longer Active 12/08/2017 [facility] Isolyte S PH 7.4 (ANES) 1000 mL Route: IV, Total Volume: 1,000, Start date: 12/08/17 8:31:00 CDT, Stop date: 12/08/17 9:31:00 CDT Inactive 12/08/2017 [facility] normal saline 0.9% IV 1,000 mL 1,000 mL, Rate: 100 ml/hr, Infuse over: 10 hr, Route: IV, Dosing Weight 84.5 kg, Total Volume: 1,000, Start date: 12/08/17 8:22:00 CDT, Duration: 30 day, Stop date: 01/07/18 8:21:00 CDT, 2.04, m2 No Longe r Active 12/08/2017 [facility] Sodium Chloride 0.9% IV 1,000 mL + M.V.I .-12 10 mL Daily + folic acid IV 1 mg Daily 1,000 mL, Rate: 100 ml/hr, Infuse over: 10.1 hr, Route: IV, Dosing Weight 84.5 kg, Total Volume: 1,010.2, Start date: 12/08/17 8:21:00 CDT, Stop date: 12/11/17 8:20:00 CDT, 2.04, m2 No Longer Active 12/08/2017 [facility] Hydrocortisone Notes: (Same as : Solu-CORTEF) Inactive 12/08/2017 [facility] Benadryl Notes: (Same as: Powderly dryl) Inactive 12/08/2017 [facility] Lasix 20 mg, Route: IVP, Drug form: INJ, ONCE, Dosing Weight 84.5, kg, Priority: NOW, Start date: 12/08/17 6:17:00 CDT, Stop date: 12/08/17 6:17:00 CDT Inactive 12/08/2017 [facility] Tranexamic Acid Notes: (Same A s: Cyklokapron) Inactive 12/08/2017 [facility] Diphenhydramine Notes: (Same a s: Benadryl) Inactive 12/08/2017 [facility] Esomeprazole 20 MG Enteric Coated Capsule [Nexium] 20 mg = 1 cap, PO, Daily, # 30 cap, 0 Refill(s) Active 12/08/2017 [facility] Levofloxacin Notes: Do not giv e w/antacids, dairy pdt & minerals Take 1 hr before or 2 hr after dairy products No Longer Active 12/08/2017 [facility] Albuterol 0.83 MG/ML Inhalant Solution Notes: SEE RT DOCUMENTATION (Same as: Proventil) Inactive 12/08/2017 [facility] Dextrose 50% Syringe 25 gm, 50 mL, Route: IVP, Drug Form: INJ, Dosing Weight 84.5, kg, ONCE, Start date: 12/08/17 0:14:00 CDT, Stop date: 12/08/17 0:14:00 CDT Inactive 12/08/2017 [facility] Insulin regular 60 units) W ASTE: F/P - Black; E - Municipal Trash Bin Stable for 28 days at room temperature Expires in days from Date Inactive 12/08/2017 [facility] normal saline 0.9% IV 1,000 mL 1,000 mL, Rate: 150 ml/hr, Infuse over: 6.7 hr, Route: IV, Dosing Weight 84.5 kg, Total Volume: 1,000, Start date: 12/08/17 0:03:00 CDT, Duration: 30 day, Stop date: 01/07/18 0:02:00 CDT, 2.04, m2 Inactive 12/08/2017 [facility] Calcium Gluconate Notes: WASTE : F/P - Sink; E - Municipal Trash Bin Inactive 12/08/2017 [facility] Morphine Notes: (Same as:MORPh ine Sulfate) No Longer Active 12/08/2017 [facility] Sodium Chloride 0.9% (titrate) 250 mL 250 mL, Rate: To prime line and flush remaining blood products., Route: IV, Total Volume: 250, Start Date: 12/07/17 22:36:00 CDT, Duration: 30 day, Stop date: 01/06/18 22:35:00 CDT, Replace Every: 24 hr No Longer Active 12/08/2017 [facility] Acetaminophen Notes: Do not ex ceed 4 gm/day. (Same as: Tylenol) No Longer Active 12/08/2017 [facility] Nystatin 100 UNT/MG Topical Powder Notes: (Same as:Mycostatin, Nilstat) For external use only. No Longer Active 12/08/2017 [facility] Ondansetron Notes: (Same as: Karol arce) MEDICATION WASTE Product Size: 4 mg Product Wasted: ___ mg No Longer Active 12/08/2017 [facility] Calcium Carbonate 500 MG Chewable Tablet Notes: (Same As: Victor Hugo) Calcium Carbonate 500 mg = 200 mg elemental calcium Dose = mg calcium carbonate ( mg elemental calcium) No Longer Active 12/08/2017 [facility] potassium phosphate-sodium phosphate 250 mg-280 mg-160 mg oral powder for reconstitution Notes: (Same as: Phos-NaK) Each 1.5 gm pkt has 250mg phosphorous. Mix w/2.5oz water and stir. No Longer Active 12/08/2017 [facility] Calcium Gluconate Notes: WASTE : F/P - Sink; E - Municipal Trash Bin No Longer Active 12/08/2017 [facility] Magnesium Oxide Notes: (Same a s: Mag-Ox 400) Magnesium oxide [id number] elemental magnesium Dose=____mg magnesium oxide (___mg elemental magnesium) No Longer Active 12/08/2017 [facility] Potassium Chloride Notes: Infu se at a rate of 10 mEq/hr. (Same as: KCL) No Longer Active 12/08/2017 [facility] potassium phosphate Notes: (Sa me as: K Phosphate.) 1 mMol phoshate has 1.47 mEq potassium Infuse over 4 hours No Longer Active 12/08/2017 [facility] sodium phosphate 30 mmol, 10 m L, Route: IVPB, PRN, kg, PRN Abnormal Lab Result, Start date: 12/07/17 22:35:00 CDT, Duration: 30 day, Stop date: 01/06/18 22:34:00 CDT, FOR ICU USE ONLY No Longer Active 12/08/2017 [facility] Magnesium Sulfate Notes: WASTE : F/P - Sink; E - Municipal Trash Bin No Longer Active 12/08/2017 [facility] Saline Flush 0.9% Notes: (Same as: BD Posiflush) No Longer Active 12/08/2017 [facility] Ipratropium Notes: SEE RT DOCU MENTATION (Same as:Atrovent) No Longer Active 12/08/2017 [facility] Albuterol 0.83 MG/ML Inhalant Solution Notes: SEE RT DOCUMENTATION (Same as: Proventil) No Longer Active 12/08/2017 [facility] Allergies, Adverse Reactions, Alerts Substance Category Reaction Severity Reaction type Status Date Reported Comments Source Keflex Assertion Drug allergy Active [facility] iodine Assertion Drug allergy Active [facility] Immunizations Immunization Date Given Site Status Last Updated Comments Source influenza virus vaccine, inactivated 06/14/2019 Left Deltoid completed [facility] haemophilus b conjugate (PRP-T) vaccine 12/15/2017 Right deltoid completed [facility] meningococcal conjugate vaccine 12/15/2017 [facility] pneumococcal 13-valent vaccine 12/15/2017 Left deltoid completed [facility] Results Order Name Results Value Reference Range Date Interpretation Comments Source ELECTROLYTES AGAP 12.6 10.0 - 20.0 06/14/2019 [facility] ELECTROLYTES Glucose Lvl 127 70 - 99 06/14/2019 [facility] ELECTROLYTES BUN 11 7 - 22 06/14/2019 [facility] ELECTROLYTES Creatinine Lvl 1.3 1 0.50 - 1.40 06/14/2019 [facility] ELECTROLYTES Sodium Lvl 138 135 - 145 06/14/2019 [facility] ELECTROLYTES Potassium Lvl 4.6 3.5 - 5.1 06/14/2019 [facility] ELECTROLYTES Chloride Lvl 107 95 - 109 06/14/2019 [facility] ELECTROLYTES CO2 23 24 - 32 06/14/2019 [facility] ELECTROLYTES Calcium Lvl 8.9 8.5 - 10.5 06/14/2019 [facility] ELECTROLYTES eGFR 67 06/14/2019 Result Comment: The eGFR is calculated using the [...] from the National Kidney Disease Education Program (NKDEP) which additionally recommends that when the eGFR is used in patients with extremes of body mass index for purposes of drug dosing, the eGFR should be multiplied by the estimated BMI. [facility] HEMATOLOGY WBC 16.9 3.7 - 10.4 06/14/2019 [facility] HEMATOLOGY RBC 5.38 4.70 - 6.10 06/14/2019 [facility] HEMATOLOGY Hgb 14.2 14.0 - 18.0 06/14/2019 [facility] HEMATOLOGY Hct 43.7 42.0 - 54.0 06/14/2019 [facility] HEMATOLOGY MCV 81.3 80.0 - 94.0 06/14/2019 [facility] HEMATOLOGY MCH 26.4 27.0 - 31.0 06/14/2019 [facility] HEMATOLOGY MCHC 32.5 32.0 - 36.0 06/14/2019 [facility] HEMATOLOGY RDW 17.1 11.5 - 14.5 06/14/2019 [facility] HEMATOLOGY Platelet 689 133 - 450 06/14/2019 [facility] HEMATOLOGY MPV 8.0 7.4 - 10.4 06/14/2019 [facility] HEMATOLOGY Segs 56.0 45.0 - 75.0 06/14/2019 [facility] HEMATOLOGY Lymphocytes 30.0 20.0 - 40.0 06/14/2019 [facility] HEMATOLOGY Monocytes 9.3 2.0 - 12.0 06/14/2019 [facility] HEMATOLOGY Eosinophils 3.9 0.0 - 4.0 06/14/2019 [facility] HEMATOLOGY Basophils 0.8 0.0 - 1.0 06/14/2019 [facility] HEMATOLOGY Neutrophils # 9.4 1.5 - 8.1 06/14/2019 [facility] HEMATOLOGY Lymphocytes # 5.0 1.0 - 5.5 06/14/2019 [facility] HEMATOLOGY Monocytes # 1.6 0.0 - 0.8 06/14/2019 [facility] HEMATOLOGY Eosinophils # 0.7 0.0 - 0.5 06/14/2019 [facility] HEMATOLOGY Basophils # 0.1 0.0 - 0.2 06/14/2019 [facility] CHEM PANEL Glucose Lvl 135 70 - 99 06/13/2019 [facility] CHEM PANEL BUN 9 7 - 22 06/13/2019 [facility] CHEM PANEL Creatinine Lvl 1.18 0.50 - 1.40 06/13/2019 [facility] CHEM PANEL Sodium Lvl 138 135 - 145 06/13/2019 [facility] CHEM PANEL Potassium Lvl 4.3 3.5 - 5.1 06/13/2019 [facility] CHEM PANEL Chloride Lvl 107 95 - 109 06/13/2019 [facility] CHEM PANEL CO2 24 24 - 32 06/13/2019 [facility] CHEM PANEL Calcium Lvl 8.8 8.5 - 10.5 06/13/2019 [facility] CHEM PANEL AGAP 11.3 10.0 - 20.0 06/13/2019 [facility] CHEM PANEL eGFR 76 06/13/2019 Result Comment: The eGFR is calculated using the [...] from the National Kidney Disease Education Program (NKDEP) which additionally recommends that when the eGFR is used in patients with extremes of body mass index for purposes of drug dosing, the eGFR should be multiplied by the estimated BMI. [facility] CHEM PANEL Glucose Lvl 135 70 - 99 06/13/2019 [facility] CHEM PANEL BUN 9 7 - 22 06/13/2019 [facility] CHEM PANEL Creatinine Lvl 1.18 0.50 - 1.40 06/13/2019 [facility] CHEM PANEL Sodium Lvl 138 135 - 145 06/13/2019 [facility] CHEM PANEL Potassium Lvl 4.3 3.5 - 5.1 06/13/2019 [facility] CHEM PANEL Chloride Lvl 107 95 - 109 06/13/2019 [facility] CHEM PANEL CO2 24 24 - 32 06/13/2019 [facility] CHEM PANEL Calcium Lvl 8.8 8.5 - 10.5 06/13/2019 [facility] CHEM PANEL Total Protein 6.3 6.4 - 8.4 06/13/2019 [facility] CHEM PANEL Albumin Lvl 2.6 3.5 - 5.0 06/13/2019 [facility] CHEM PANEL ALT 56 0 - 65 06/13/2019 [facility] CHEM PANEL AST 33 0 - 37 06/13/2019 [facility] CHEM PANEL Alk Phos 57 39 - 136 06/13/2019 [facility] CHEM PANEL Bili Total 0.2 0.2 - 1.3 06/13/2019 [facility] CHEM PANEL AGAP 11.3 10.0 - 20.0 06/13/2019 [facility] CHEM PANEL B/C Ratio 8 6 - 25 06/13/2019 [facility] CHEM PANEL Globulin 3.7 2.7 - 4.2 06/13/2019 [facility] CHEM PANEL A/G Ratio 0.7 0.7 - 1.6 06/13/2019 [facility] CHEM PANEL eGFR 76 06/13/2019 Result Comment: The eGFR is calculated using the [...] from the National Kidney Disease Education Program (NKDEP) which additionally recommends that when the eGFR is used in patients with extremes of body mass index for purposes of drug dosing, the eGFR should be multiplied by the estimated BMI. [facility] HEMATOLOGY WBC 18.8 3.7 - 10.4 06/13/2019 [facility] HEMATOLOGY RBC 4.85 4.70 - 6.10 06/13/2019 [facility] HEMATOLOGY Hgb 13.1 14.0 - 18.0 06/13/2019 [facility] HEMATOLOGY Hct 39.2 42.0 - 54.0 06/13/2019 [facility] HEMATOLOGY MCV 80.8 80.0 - 94.0 06/13/2019 [facility] HEMATOLOGY MCH 26.9 27.0 - 31.0 06/13/2019 [facility] HEMATOLOGY MCHC 33.3 32.0 - 36.0 06/13/2019 [facility] HEMATOLOGY RDW 16.7 11.5 - 14.5 06/13/2019 [facility] HEMATOLOGY Platelet 640 133 - 450 06/13/2019 [facility] HEMATOLOGY MPV 7.5 7.4 - 10.4 06/13/2019 [facility] TOXICOLOGY Vanco Tr 7.4 06/12/2019 [facility] TOXICOLOGY Vanco Tr TND 1500 06/12/2019 [facility] TOXICOLOGY Vanco Tr 0.9 06/11/2019 [facility] TOXICOLOGY Vanco Tr TND 1330 06/11/2019 [facility] HEMATOLOGY WBC 22.5 3.7 - 10.4 06/11/2019 [facility] HEMATOLOGY RBC 4.92 4.70 - 6.10 06/11/2019 [facility] HEMATOLOGY Hgb 13.0 14.0 - 18.0 06/11/2019 [facility] HEMATOLOGY Hct 40.2 42.0 - 54.0 06/11/2019 [facility] HEMATOLOGY MCV 81.5 80.0 - 94.0 06/11/2019 [facility] HEMATOLOGY MCH 26.4 27.0 - 31.0 06/11/2019 [facility] HEMATOLOGY MCHC 32.4 32.0 - 36.0 06/11/2019 [facility] HEMATOLOGY RDW 16.7 11.5 - 14.5 06/11/2019 [facility] HEMATOLOGY Platelet 598 133 - 450 06/11/2019 [facility] HEMATOLOGY MPV 8.1 7.4 - 10.4 06/11/2019 [facility] IMMUNOLOGY HIV. Negat adrian *NA* (06/11/19 4:44 AM) Negative 06/11/2019 [facility] IMMUNOLOGY Hep Bs Ag Negat adrian *NA* (06/11/19 4:44 AM) Negative 06/11/2019 [facility] IMMUNOLOGY Hep B Core IgM Negat adrian *NA* (06/11/19 4:44 AM) Negative 06/11/2019 [facility] IMMUNOLOGY Hep C Ab Negat adrian *NA* (06/11/19 4:44 AM) Negative 06/11/2019 [facility] IMMUNOLOGY Hep A IgM Negat adrian *NA* (06/11/19 4:44 AM) Negative 06/11/2019 [facility] DRUG SCREEN U Amph Scr Nega tive *NA* (06/11/19 3:00 AM) Negative 06/11/2019 [facility] DRUG SCREEN U Yenifer Scr Nega tive *NA* (06/11/19 3:00 AM) Negative 06/11/2019 [facility] DRUG SCREEN U Benzodiaz Scr Posi tive *ABN* (06/11/19 3:00 AM) Negative 06/11/2019 [facility] DRUG SCREEN U Cocaine Scr Nega tive *NA* (06/11/19 3:00 AM) Negative 06/11/2019 [facility] DRUG SCREEN U Cannab Scr Nega tive *NA* (06/11/19 3:00 AM) Negative 06/11/2019 [facility] DRUG SCREEN U Opiate Scr Posi tive *ABN* (06/11/19 3:00 AM) Negative 06/11/2019 [facility] DRUG SCREEN U Phencyclidine Scr Nega tive *NA* (06/11/19 3:00 AM) Negative 06/11/2019 [facility] DRUG SCREEN UDS Note See Note (06/11/19 3:00 AM) 06/11/2019 [facility] DRUG SCREEN U Methadone Scr Nega tive *NA* (06/11/19 3:00 AM) Negative 06/11/2019 [facility] DRUG SCREEN U Propoxyph Scr Nega tive *NA* (06/11/19 3:00 AM) Negative 06/11/2019 [facility] PENICILLIN:SUSC:PT:ISOLATE:ORDQN:ZANE Gram Stain Report Moderate WBC's Rare Gram Positive Cocci In Clusters Critical Results Called To: Ms. Fausto RN, [id number], [id number] At: 06/10/2019 19:35 Called By: FREDDY Read Back Ok 06/10/2019 [facility] PENICILLIN:SUSC:PT:ISOLATE:ORDQN:ZANE Culture: Wound/Abscess w/Gram Stain Many Staphylococcus aureus Upon Supplemental Testing, This Isolate Was Found To Be Resistant To Clindamycin By An Inducible Mechanism. 06/10/2019 [facility] PENICILLIN:SUSC:PT:ISOLATE:ORDQN:ZANE Staphylococcus aureus Staphylococcus aureus 06/10/2019 [facility] Culture: Anaerobic Many Anaerobic Gram Positive Cocci , Identified As: Peptoniphilus indolicus 06/10/2019 [facility] CHEM PANEL Magnesium Lvl 1.8 1.8 - 2.4 06/10/2019 [facility] CHEM PANEL Phosphorus 1.9 2.5 - 4.5 06/10/2019 [facility] CHEM PANEL Lactic Acid Lvl 0.9 0.5 - 2.2 06/10/2019 [facility] HEMATOLOGY RBC Morph Ping l (06/09/19 11:38 PM) Normal 06/10/2019 [facility] HEMATOLOGY Plt Morph Ping l (06/09/19 11:38 PM) Normal 06/10/2019 [facility] HEMATOLOGY Segs 75.6 45.0 - 75.0 06/10/2019 [facility] HEMATOLOGY Lymphocytes 13.6 20.0 - 40.0 06/10/2019 [facility] HEMATOLOGY Monocytes 9.1 2.0 - 12.0 06/10/2019 [facility] HEMATOLOGY Eosinophils 1.4 0.0 - 4.0 06/10/2019 [facility] HEMATOLOGY Basophils 0.3 0.0 - 1.0 06/10/2019 [facility] HEMATOLOGY Neutrophils # 18.7 1.5 - 8.1 06/10/2019 [facility] HEMATOLOGY Lymphocytes # 3.4 1.0 - 5.5 06/10/2019 [facility] HEMATOLOGY Monocytes # 2.2 0.0 - 0.8 06/10/2019 [facility] HEMATOLOGY Eosinophils # 0.3 0.0 - 0.5 06/10/2019 [facility] HEMATOLOGY Basophils # 0.1 0.0 - 0.2 06/10/2019 [facility] BLOOD BANK RESULTS ABO/Rh O POS 06/10/2019 [facility] BLOOD BANK RESULTS Antibody Scrn Negative (06/09/19 11:35 PM) 06/10/2019 [facility] HEMATOLOGY Segs-Bands # 10.1 1.5 - 8.1 12/15/2017 [facility] HEMATOLOGY Lymphocytes 19.9 20.0 - 40.0 12/15/2017 [facility] HEMATOLOGY Segs 54.9 45.0 - 75.0 12/15/2017 [facility] HEMATOLOGY Monocytes 9.8 2.0 - 12.0 12/15/2017 [facility] HEMATOLOGY Eosinophils 15.3 0.0 - 4.0 12/15/2017 [facility] HEMATOLOGY Basophils 0.1 0.0 - 1.0 12/15/2017 [facility] HEMATOLOGY Lymphocytes # 3.7 1.0 - 5.5 12/15/2017 [facility] HEMATOLOGY Monocytes # 1.8 0.0 - 0.8 12/15/2017 [facility] HEMATOLOGY Eosinophils # 2.8 0.0 - 0.5 12/15/2017 [facility] Basophils # 0.0 0.0 - 0.2 12/15/2017 [facility] MPV 8.1 7.4 - 10.4 12/15/2017 [facility] MCH 29.1 27.0 - 31.0 12/15/2017 [facility] MCHC 34.4 32.0 - 36.0 12/15/2017 [facility] RDW 15.8 11.5 - 14.5 12/15/2017 [facility] Platelet 954 133 - 450 12/15/2017 [facility] MCV 84.5 80.0 - 94.0 12/15/2017 [facility] WBC 18.4 3.7 - 10.4 12/15/2017 [facility] Hgb 8.7 14.0 - 18.0 12/15/2017 [facility] RBC 3.00 4.70 - 6.10 12/15/2017 [facility] Hct 25.3 42.0 - 54.0 12/15/2017 [facility] Monocytes 11.6 2.0 - 12.0 12/15/2017 [facility] Eosinophils 15.1 0.0 - 4.0 12/15/2017 [facility] Basophils 0.7 0.0 - 1.0 12/15/2017 [facility] Segs 52.6 45.0 - 75.0 12/15/2017 [facility] Lymphocytes 20.0 20.0 - 40.0 12/15/2017 [facility] CHEM PANEL Glucose Lvl 88 70 - 99 12/14/2017 [facility] CHEM PANEL Chloride Lvl 99 95 - 109 12/14/2017 [facility] CHEM PANEL BUN 16 7 - 22 12/14/2017 [facility] CHEM PANEL Sodium Lvl 135 135 - 145 12/14/2017 [facility] CHEM PANEL Creatinine Lvl 0.90 0.50 - 1.40 12/14/2017 [facility] CHEM PANEL Calcium Lvl 8.8 8.5 - 10.5 12/14/2017 [facility] CHEM PANEL CO2 27 24 - 32 12/14/2017 [facility] CHEM PANEL eGFR 106 12/14/2017 Result Comment: The eGFR is calculated using the [...] from the National Kidney Disease Education Program (NKDEP) which additionally recommends that when the eGFR is used in patients with extremes of body mass index for purposes of drug dosing, the eGFR should be multiplied by the estimated BMI. [facility] CHEM PANEL Potassium Lvl 3.7 3.5 - 5.1 12/14/2017 [facility] CHEM PANEL AGAP 12.7 10.0 - 20.0 12/14/2017 [facility] HEMATOLOGY MPV 8.0 7.4 - 10.4 12/14/2017 [facility] Platelet 802 133 - 450 12/14/2017 [facility] RDW 15.4 11.5 - 14.5 12/14/2017 [facility] MCHC 31.2 32.0 - 36.0 12/14/2017 [facility] MCH 27.0 27.0 - 31.0 12/14/2017 [facility] Hct 26.6 42.0 - 54.0 12/14/2017 [facility] MCV 86.6 80.0 - 94.0 12/14/2017 [facility] Hgb 8.3 14.0 - 18.0 12/14/2017 [facility] RBC 3.07 4.70 - 6.10 12/14/2017 [facility] WBC 19.5 3.7 - 10.4 12/14/2017 [facility] Polychrom Moder ate *ABN* (12/14/17 4:28 AM) None Seen 12/14/2017 [facility] Segs 56.0 45.0 - 75.0 12/14/2017 [facility] Bands 1.0 0.0 - 11.0 12/14/2017 [facility] Monocytes # 2.0 0.0 - 0.8 12/14/2017 [facility] Eosinophils # 2.1 0.0 - 0.5 12/14/2017 [facility] Plt Morph Ping l (12/14/17 4:28 AM) 12/14/2017 [facility] Lymphocytes # 4.3 1.0 - 5.5 12/14/2017 [facility] HEMATOLOGY Lymphocytes 21.0 20.0 - 40.0 12/14/2017 [facility] HEMATOLOGY Eosinophils 11.0 0.0 - 4.0 12/14/2017 [facility] HEMATOLOGY Atypical Lymphs 1.0 <=0.0 % 12/14/2017 [facility] HEMATOLOGY Monocytes 10.0 2.0 - 12.0 12/14/2017 [facility] HEMATOLOGY Segs-Bands # 11.1 1.5 - 8.1 12/14/2017 [facility] CHEM PANEL Phosphorus 3.0 2.5 - 4.5 12/13/2017 [facility] CHEM PANEL Magnesium Lvl 2.0 1.8 - 2.4 12/13/2017 [facility] ELECTROLYTES AGAP 11.9 10.0 - 20.0 12/13/2017 [facility] ELECTROLYTES eGFR 84 12/13/2017 Result Comment: The eGFR is calculated using the [...] from the National Kidney Disease Education Program (NKDEP) which additionally recommends that when the eGFR is used in patients with extremes of body mass index for purposes of drug dosing, the eGFR should be multiplied by the estimated BMI. [facility] ELECTROLYTES BUN 18 7 - 22 12/13/2017 [facility] ELECTROLYTES Glucose Lvl 87 70 - 99 12/13/2017 [facility] ELECTROLYTES Potassium Lvl 3.9 3.5 - 5.1 12/13/2017 [facility] ELECTROLYTES Creatinine Lvl 1.1 0 0.50 - 1.40 12/13/2017 [facility] ELECTROLYTES Sodium Lvl 135 135 - 145 12/13/2017 [facility] ELECTROLYTES Chloride Lvl 98 95 - 109 12/13/2017 [facility] ELECTROLYTES Calcium Lvl 8.8 8.5 - 10.5 12/13/2017 [facility] ELECTROLYTES CO2 29 24 - 32 12/13/2017 [facility] HEMATOLOGY INR 1.10 0.85 - 1.17 12/13/2017 [facility] PT 14.2 12.0 - 14.7 12/13/2017 [facility] PTT 35.0 22.9 - 35.8 12/13/2017 [facility] Basophils # 0.1 0.0 - 0.2 12/13/2017 [facility] Eosinophils # 1.5 0.0 - 0.5 12/13/2017 [facility] Lymphocytes # 1.7 1.0 - 5.5 12/13/2017 [facility] Segs-Bands # 11.5 1.5 - 8.1 12/13/2017 [facility] Basophils 0.4 0.0 - 1.0 12/13/2017 [facility] Monocytes # 2.2 0.0 - 0.8 12/13/2017 [facility] MPV 8.0 7.4 - 10.4 12/13/2017 [facility] Platelet 629 133 - 450 12/13/2017 [facility] RDW 15.4 11.5 - 14.5 12/13/2017 [facility] MCHC 33.5 32.0 - 36.0 12/13/2017 [facility] MCH 28.7 27.0 - 31.0 12/13/2017 [facility] RBC 2.99 4.70 - 6.10 12/13/2017 [facility] MCV 85.6 80.0 - 94.0 12/13/2017 [facility] Hgb 8.6 14.0 - 18.0 12/13/2017 [facility] WBC 17.1 3.7 - 10.4 12/13/2017 [facility] Hct 25.6 42.0 - 54.0 12/13/2017 [facility] Bands 1.0 0.0 - 11.0 12/13/2017 [facility] Eosinophils # 2.1 0.0 - 0.5 12/13/2017 [facility] Polychrom Moder ate *ABN* (12/13/17 4:43 AM) None Seen 12/13/2017 [facility] Atypical Lymphs 0.0 <=0.0 % 12/13/2017 [facility] Plt Morph Ping l (12/13/17 4:43 AM) 12/13/2017 [facility] Segs-Bands # 12.0 1.5 - 8.1 12/13/2017 [facility] HEMATOLOGY Monocytes # 1.9 0.0 - 0.8 12/13/2017 [facility] HEMATOLOGY Lymphocytes # 1.2 1.0 - 5.5 12/13/2017 [facility] PARATHYROID PROFILE Ca Ion WB 1.07 1.05 - 1.25 12/13/2017 [facility] PARATHYROID PROFILE Ca Norm WB 1.10 1.05 - 1.25 12/13/2017 [facility] CHEM PANEL Magnesium Lvl 2.0 1.8 - 2.4 12/12/2017 [facility] CHEM PANEL Phosphorus 3.0 2.5 - 4.5 12/12/2017 [facility] ELECTROLYTES AGAP 13.3 10.0 - 20.0 12/12/2017 [facility] ELECTROLYTES eGFR 68 12/12/2017 Result Comment: The eGFR is calculated using the [...] from the National Kidney Disease Education Program (NKDEP) which additionally recommends that when the eGFR is used in patients with extremes of body mass index for purposes of drug dosing, the eGFR should be multiplied by the estimated BMI. [facility] ELECTROLYTES Calcium Lvl 8.9 8.5 - 10.5 12/12/2017 [facility] ELECTROLYTES BUN 19 7 - 22 12/12/2017 [facility] ELECTROLYTES Glucose Lvl 97 70 - 99 12/12/2017 [facility] ELECTROLYTES Potassium Lvl 3.3 3.5 - 5.1 12/12/2017 [facility] ELECTROLYTES CO2 33 24 - 32 12/12/2017 [facility] ELECTROLYTES Sodium Lvl 135 135 - 145 12/12/2017 [facility] ELECTROLYTES Chloride Lvl 92 95 - 109 12/12/2017 [facility] ELECTROLYTES Creatinine Lvl 1.3 0 0.50 - 1.40 12/12/2017 [facility] HEMATOLOGY PTT 40.2 22.9 - 35.8 12/12/2017 [facility] HEMATOLOGY INR 1.26 0.85 - 1.17 12/12/2017 [facility] HEMATOLOGY PT 15.9 12.0 - 14.7 12/12/2017 [facility] HEMATOLOGY Basophils # 0.1 0.0 - 0.2 12/12/2017 [facility] PARATHYROID PROFILE Ca Norm WB 1.10 1.05 - 1.25 12/12/2017 [facility] PARATHYROID PROFILE Ca Ion WB 1.06 1.05 - 1.25 12/12/2017 [facility] HEMATOLOGY NRBC 1 12/11/2017 [facility] Plt Morph Ping l (12/11/17 3:17 AM) 12/11/2017 [facility] HEMATOLOGY RBC Morph Ping l (12/11/17 3:17 AM) 12/11/2017 [facility] HEMATOLOGY Bands 2.0 0.0 - 11.0 12/11/2017 [facility] Atypical Lymphs 0.0 <=0.0 % 12/11/2017 [facility] URINE AND STOOL UA Urobilinogen <=1.0 0.1 - 1.0 12/10/2017 [facility] URINE AND STOOL UA Glucose 150 12/10/2017 [facility] URINE AND STOOL UA Color Ltyellow 12/10/2017 [facility] URINE AND STOOL UA RBC 1 0 - 2 12/10/2017 [facility] URINE AND STOOL UA WBC 1 0 - 5 12/10/2017 [facility] URINE AND STOOL UA Blood Small *ABN* (12/10/17 6:58 PM) Negative 12/10/2017 [facility] URINE AND STOOL UA Ketones Negative mg/dL Negative mg/dL 12/10/2017 [facility] URINE AND STOOL UA Bili Negative *NA* (12/10/17 6:58 PM) Negative 12/10/2017 [facility] URINE AND STOOL UA Sq Epi Occasional /LPF Few /LPF 12/10/2017 [facility] URINE AND STOOL UA Leuk Est Negative (12/10/17 6:58 PM) Negative 12/10/2017 [facility] URINE AND STOOL UA Turbidity Clear (12/10/17 6:58 PM) Clear 12/10/2017 [facility] URINE AND STOOL UA pH 7.0 5.0 - 8.0 12/10/2017 [facility] URINE AND STOOL UA Protein 30 mg/dL Negative mg/dL 12/10/2017 [facility] URINE AND STOOL UA Spec Grav 1.009 <=1.030 12/10/2017 [facility] URINE AND STOOL UA Nitrite Negative (12/10/17 6:58 PM) Negative 12/10/2017 [facility] Gram Stain Report Less Than 25 Sq uamous Epithelial Cells/Lpf Rare WBC's Few Gram Positive Cocci Few Gram Positive Rods Good Quality Specimen 12/10/2017 [facility] Culture: Respiratory w/Gram Stain F ew Yeast Normal Respiratory Judit Isolated 12/10/2017 [facility] CHEM PANEL Procalcitonin Lvl 4.32 0.00 - 0.10 12/10/2017 Result Comment: Critical Result(s) fermin d to JOSÉ AGUILAR at 12/10/2017 14:20 byTMT. Read back OK. [facility] CHEM PANEL Magnesium Lvl 1.5 1.8 - 2.4 12/10/2017 [facility] PARATHYROID PROFILE Ca Norm WB 1.06 1.05 - 1.25 12/10/2017 [facility] PARATHYROID PROFILE Ca Ion WB 1.00 1.05 - 1.25 12/10/2017 [facility] CHEM PANEL Phosphorus 3.3 2.5 - 4.5 12/09/2017 [facility] HEMATOLOGY PTT 30.7 22.9 - 35.8 12/09/2017 [facility] HEMATOLOGY INR 1.20 0.85 - 1.17 12/09/2017 [facility] HEMATOLOGY PT 15.3 12.0 - 14.7 12/09/2017 [facility] BLOOD BANK RESULTS RBC product Product available 3 (12/09/17 3:49 AM) 12/09/2017 Result Comment: 12/09/2017 0 4:01 SAMATHEW
Blood available, notified Crowe.Caitlyn at _12/09/2017 04:01 by SM. [facility] CHEM PANEL Bili Total 0.2 0.2 - 1.3 12/09/2017 [facility] CHEM PANEL Globulin 2.7 2.7 - 4.2 12/09/2017 [facility] CHEM PANEL AST 48 0 - 37 12/09/2017 [facility] CHEM PANEL Alk Phos 32 39 - 136 12/09/2017 [facility] CHEM PANEL A/G Ratio 0.8 0.7 - 1.6 12/09/2017 [facility] CHEM PANEL ALT 27 0 - 65 12/09/2017 [facility] CHEM PANEL Albumin Lvl 2.1 3.5 - 5.0 12/09/2017 [facility] CHEM PANEL Total Protein 4.8 6.4 - 8.4 12/09/2017 [facility] CHEM PANEL B/C Ratio 13 6 - 25 12/09/2017 [facility] CHEM PANEL Lactic Acid Lvl 1.3 0.5 - 2.2 12/08/2017 [facility] CHEM PANEL Procalcitonin Lvl 0.08 0.00 - 0.10 12/08/2017 [facility] HEMATOLOGY Fibrinogen Lvl 327 230 - 510 12/08/2017 [facility] CHEM PANEL AST 39 0 - 37 12/08/2017 [facility] CHEM PANEL Alk Phos 35 39 - 136 12/08/2017 [facility] CHEM PANEL Bili Total 0.5 0.2 - 1.3 12/08/2017 [facility] CHEM PANEL A/G Ratio 0.9 0.7 - 1.6 12/08/2017 [facility] CHEM PANEL Globulin 2.9 2.7 - 4.2 12/08/2017 [facility] CHEM PANEL Albumin Lvl 2.5 3.5 - 5.0 12/08/2017 [facility] CHEM PANEL ALT 27 0 - 65 12/08/2017 [facility] CHEM PANEL B/C Ratio 9 6 - 25 12/08/2017 [facility] CHEM PANEL Total Protein 5.4 6.4 - 8.4 12/08/2017 [facility] CHEM PANEL Lactic Acid Lvl 2.5 0.5 - 2.2 12/08/2017 [facility] CARDIAC ENZYMES Troponin-I <0.02 0.00 - 0.40 12/08/2017 [facility] HEMATOLOGY Fibrinogen Lvl 283 230 - 510 12/08/2017 [facility] BLOOD BANK RESULTS FFP product Product available (12/08/17 9:08 AM) 12/08/2017 [facility] BLOOD BANK RESULTS RBC product Product available (12/08/17 9:03 AM) 12/08/2017 [facility] IMMUNOLOGY EBV VCA IgG 4.8 <=0.8 AI 12/08/2017 [facility] EBV VCA IgM 1.3 <=0.8 AI 12/08/2017 [facility] IMMUNOLOGY HIV Ag/Ab 4th Gen Negat adrian *NA* (12/08/17 8:12 AM) Negative 12/08/2017 [facility] EBV VCA IgM 1.7 <=0.8 AI 12/08/2017 [facility] CHEM PANEL Lactic Acid Lvl 1.5 0.5 - 2.2 12/08/2017 [facility] CHEM PANEL Bili Total 0.5 0.2 - 1.3 12/08/2017 [facility] CHEM PANEL Total Protein 5.0 6.4 - 8.4 12/08/2017 [facility] CHEM PANEL Albumin Lvl 2.4 3.5 - 5.0 12/08/2017 [facility] CHEM PANEL B/C Ratio 13 6 - 25 12/08/2017 [facility] CHEM PANEL Alk Phos 34 39 - 136 12/08/2017 [facility] CHEM PANEL ALT 19 0 - 65 12/08/2017 [facility] CHEM PANEL AST 20 0 - 37 12/08/2017 [facility] CHEM PANEL A/G Ratio 0.9 0.7 - 1.6 12/08/2017 [facility] CHEM PANEL Globulin 2.6 2.7 - 4.2 12/08/2017 [facility] HEMATOLOGY RBC Morph Ping l (12/08/17 6:45 AM) 12/08/2017 [facility] HEMATOLOGY Max Amplitude Rapid 57 52 - 71 12/08/2017 [facility] HEMATOLOGY G-value Rapid 6.6 5.0 - 11.6 12/08/2017 [facility] HEMATOLOGY Split Point Rapid 0.6 12/08/2017 [facility] HEMATOLOGY Estimated % Lysis Rapid 2 .9 0.0 - 7.5 12/08/2017 [facility] HEMATOLOGY R-time Rapid 0.7 0.4 - 0.7 12/08/2017 [facility] HEMATOLOGY Angle Rapid 73 64 - 80 12/08/2017 [facility] HEMATOLOGY K-time Rapid 1.4 0.6 - 2.3 12/08/2017 [facility] HEMATOLOGY ACT (TEG) Rapid 113 86 - 118 12/08/2017 [facility] BLOOD BANK RESULTS Platelet product Product available (12/08/17 5:41 AM) 12/08/2017 [facility] BLOOD BANK RESULTS FFP product Product available 2 (12/08/17 5:41 AM) 12/08/2017 Result Comment: 12/08/2017 0 6:12 SAMATHEW
Blood available, notified Americo at _12/08/2017 06:12 by _SM. [facility] BLOOD BANK RESULTS RBC product Product available (12/08/17 5:41 AM) 12/08/2017 [facility] BACTERIAL - SEROLOGY Strep pneumonia e Ag Negative (12/08/17 4:27 AM) Negative 12/08/2017 [facility] BACTERIAL - SEROLOGY Source Strep Urine *NA* (12/08/17 4:27 AM) 12/08/2017 [facility] CARDIAC ENZYMES Troponin-I <0.02 0.00 - 0.40 12/08/2017 [facility] HEMATOLOGY FSP <5 ug/ml <5 ug/ml 12/08/2017 [facility] HEMATOLOGY Fibrinogen Lvl 253 230 - 510 12/08/2017 [facility] HEMATOLOGY D-Dimer 0.45 12/08/2017 [facility] IMMUNOLOGY Log10 HIV1 <1.3 12/08/2017 [facility] Vir Ld-HIV1 RNA Not D etected (12/08/17 4:27 AM) 12/08/2017 [facility] [place] Scr Posit adrian *ABN* (12/08/17 4:27 AM) Negative 12/08/2017 [facility] URINE AND STOOL UA Glucose 50 12/08/2017 [facility] URINE AND STOOL UA Color Yellow 12/08/2017 [facility] URINE AND STOOL UA Sq Epi None Seen 12/08/2017 [facility] URINE AND STOOL UA Urobilinogen 2.0 0.1 - 1.0 12/08/2017 [facility] URINE AND STOOL UA Blood Small *ABN* (12/08/17 2:30 AM) Negative 12/08/2017 [facility] URINE AND STOOL UA Bili Negative *NA* (12/08/17 2:30 AM) Negative 12/08/2017 [facility] URINE AND STOOL UA Ketones Negative mg/dL Negative mg/dL 12/08/2017 [facility] URINE AND STOOL UA Mucus Few /LPF None Seen /LPF 12/08/2017 [facility] URINE AND STOOL UA RBC 6 0 - 2 12/08/2017 [facility] URINE AND STOOL UA Spec Grav 1.021 <=1.030 12/08/2017 [facility] URINE AND STOOL UA Turbidity Slight *ABN* (12/08/17 2:30 AM) Clear 12/08/2017 [facility] URINE AND STOOL UA Protein Negative mg/dL Negative mg/dL 12/08/[address] [facility] [address] URINE AND STOOL UA pH 5.0 5.0 - 8.0 12/08/2017 [facility] URINE AND STOOL UA Nitrite Negative (12/08/17 2:30 AM) Negative 12/08/2017 [facility] URINE AND STOOL UA WBC 1 0 - 5 12/08/2017 [facility] URINE AND STOOL UA Leuk Est Negative (12/08/17 2:30 AM) Negative 12/08/2017 [facility] BLOOD BANK RESULTS Cryo product Product available 1 (12/08/17 1:28 AM) 12/08/2017 Result Comment: 12/08/2017 0 2:00 SAMATHEW
Blood available, notified Alicia at _12/08/2017 02:00 by SM_. [facility] BACTERIAL - SEROLOGY MRSA by PCR Negative (12/07/17 11:11 PM) 12/08/2017 [facility] DRUG SCREEN U Amph Scr Nega tive *NA* (12/07/17 11:11 PM) Negative 12/08/2017 [facility] DRUG SCREEN U Cannab Scr Nega tive *NA* (12/07/17 11:11 PM) Negative 12/08/2017 [facility] DRUG SCREEN U Yenifer Scr Nega tive *NA* (12/07/17 11:11 PM) Negative 12/08/2017 [facility] DRUG SCREEN U Benzodia Scr Nega tive *NA* (12/07/17 11:11 PM) Negative 12/08/2017 [facility] DRUG SCREEN U Cocaine Scr Nega tive *NA* (12/07/17 11:11 PM) Negative 12/08/2017 [facility] DRUG SCREEN U Opiate Scr Posi tive *ABN* (12/07/17 11:11 PM) Negative 12/08/2017 [facility] DRUG SCREEN U Phencyc Scr Nega tive *NA* (12/07/17 11:11 PM) Negative 12/08/2017 [facility] DRUG SCREEN UDS Note See Note (12/07/17 11:11 PM) 12/08/2017 [facility] BLOOD BANK RESULTS Antibody Scrn Negative (12/07/17 11:04 PM) 12/08/2017 [facility] BLOOD BANK RESULTS ABO/Rh O POS 12/08/2017 [facility] CARDIAC ENZYMES BNP 3 <=100 pg/mL 12/08/2017 [facility] CARDIAC ENZYMES Troponin-I <0.02 0.00 - 0.40 12/08/2017 [facility] CHEM PANEL Procalcitonin Lvl <0.05 0.00 - 0.10 12/08/2017 [facility] LIPIDS VLDL 25 12/08/2017 [facility] LIPIDS LDL (Calculated) 95 <=99 mg/dL 12/08/2017 [facility] LIPIDS Chol 135 <=199 mg/dL 12/08/2017 [facility] LIPIDS HDL 15 >=61 mg/dL 12/08/2017 [facility] LIPIDS CHD Risk 9.00 4.00 - 7.30 12/08/2017 [facility] LIPIDS Trig 123 <=149 mg/dL 12/08/2017 [facility] SPECIAL CHEMISTRY Hgb A1C 5.1 <=5.6 % 12/08/2017 [facility] Pathology Reports No Data Provided for This Section Diagnostic Reports Report Value Date Source Abdomen AP DX Patient Name: SE DIANA ROUSE : 1975; Age: 42 years y/o Male MR: [id number] Study: Abdomen AP DX dated 12/13/2017. Clinical Indication: Constipation - hiccups post splectomy; Comparison: None External roni overlie the abdomen. Moderate amount of stool seen in the right colon and descending colon. Nonpathologic bowel gas pattern without evidence of bowel obstruction. Tiny calcification left lower pelvis likely phlebolith. SL: HARRISODERSTROM-PC 12/13/2017 [facility] Chest 1view DX Clinical Indica tion: resp distress Comparison: 12/11/2017 FINDINGS: The frontal chest radiograph shows normal lung volumes with hazy opacities within the lower lobes, stable. The cardiomediastinal contours are normal. The trachea is midline. There are no clinically significant osseous abnormalities noted. IMPRESSION: Stable bibasilar opacities representing atelectasis versus pneumonia. SL: [id number] 12/12/2017 [facility] Chest 1view DX XR CHEST 1 VIEW HISTORY: Respiratory failure - shortness of breath. COMPARISON: Multiple priors, most recent CXR 12/10/2017. FINDINGS: There is hazy diffuse bilateral pulmonary opacity. Coalescence noted within the lower lung zones over the last day. Density of each lung base has mildly increased. No definite pleural fluid. The heart and vascular markings are stable. No focal skeletal abnormality. IMPRESSION: 1. Diffuse bilateral infiltrate with wor sening opacification of each lung base as compared to the prior day. SL: LS-M 12/11/2017 [facility] Chest 1view DX EXAM: Chest 1vi ew DX DATE: 12/10/2017 3:10 AM CDT INDICATION: Shortness of breath. COMPARISON: 12/09/2017. IMPRESSION: Stable cardiac silhouette and mediastinum. Interval improvement of the extensive bilateral airspace opacities. No significant pleural effusion or pneumothorax detected. SL: [id number] 12/10/2017 [facility] Chest 1view DX EXAM: Chest 1vi ew DX DATE: 12/09/2017 3:00 AM CDT INDICATION: Respiratory failure - Respiratory failure COMPARISON: 12/08/2017. IMPRESSION: Stable mildly enlarged cardiac silhouette and prominent mediastinum. Interval worsening extensive bilateral airspace opacities are present. Low lung volume. No significant pneumothorax detected. SL: [id number] 12/09/2017 [facility] Chest 1view DX 1 VIEW CXR. POR TABLE EXAM 2:41 PM HISTORY: Respiratory failure. COMPARISON: Yesterdays chest X-RAY. Bibasal atelectasis stable on the left slightly worse on the right compared to yesterday. Upper lungs clear with normal pulmonary vasculature. Cardiomediastinal silhouette stable. Bones intact. IMPRESSION: Bibasal atelectasis worse on the right stable on the left at the one day interval. END OF IMPRESSION SL: [id number]-M 12/08/2017 [facility] Chest 1view DX 1 VIEW CXR. POR TABLE EXAM 10:55 PM HISTORY: Shortness of breath. COMPARISON: None. Shallow inspiration with bibasal atelectasis. Upper lungs clear. Cardiomediastinal silhouette normal considering portable technique. Bones intact. IMPRESSION: Shallow inspiration with bibasal atelectasis. END OF IMPRESSION SL: WR1-M 12/07/2017 [facility] Consultation Notes No Data Provided for This Section Discharge Summaries No Data Provided for This Section History and Physicals No Data Provided for This Section Vital Signs Vital Sign Value Date Comments Source Temperature Oral (F) 98.4 F 06/14/2019 [facility] Heart Rate 81 06/14/2019 [facility] Respitory Rate 19 06/14/2019 [facility] Systolic (mm Hg) 136 06/14/2019 [facility] Diastolic (mm Hg) 73 06/14/2019 [facility] Temperature Oral (F) 98.1 F 06/14/2019 [facility] Heart Rate 85 06/14/2019 [facility] Respitory Rate 18 06/14/2019 [facility] Systolic (mm Hg) 147 06/14/2019 [facility] Diastolic (mm Hg) 78 06/14/2019 [facility] Heart Rate 71 06/14/2019 [facility] Respitory Rate 16 06/14/2019 [facility] Systolic (mm Hg) 139 06/14/2019 [facility] Diastolic (mm Hg) 71 06/14/2019 [facility] Temperature Oral (F) 98 F 06/14/2019 [facility] Height 175.2 cm 06/10/2019 [facility] Weight 90.909 06/10/2019 [facility] BMI Calculated 29.62 06/10/2019 [facility] Height 175.26 cm 06/10/2019 [facility] Weight 90.909 06/10/2019 [facility] Height 175.26 cm 06/10/2019 [facility] BMI Calculated 29.6 06/10/2019 [facility] Weight 90.909 06/10/2019 [facility] Heart Rate 101 12/15/2017 [facility] Respitory Rate 18 12/15/2017 [facility] Systolic (mm Hg) 103 12/15/2017 [facility] Diastolic (mm Hg) 61 12/15/2017 [facility] Temperature Oral (F) 98.0 F 12/15/2017 [facility] Systolic (mm Hg) 116 12/15/2017 [facility] Diastolic (mm Hg) 73 12/15/2017 [facility] Respitory Rate 18 12/15/2017 [facility] Heart Rate 98 12/15/2017 [facility] Temperature Oral (F) 98.1 F 12/15/2017 [facility] Systolic (mm Hg) 110 12/15/2017 [facility] Diastolic (mm Hg) 69 12/15/2017 [facility] Respitory Rate 19 12/15/2017 [facility] Heart Rate 86 12/15/2017 [facility] Temperature Oral (F) 98.1 F 12/15/2017 [facility] BMI Calculated 27.51 12/08/2017 [facility] Weight 84.5 12/08/2017 [facility] Height 175.26 cm 12/08/2017 [facility] Encounters Location Location Details Encounter Type Encounter Number Reason For Visit Attending Provider ADM Date DC Date Status Source [facility] Inpatient [id number] Allan Rinaldi 12/08/2017 12/15/2017 [facility] Inpatient [id number] Santo Reina 06/10/2019 06/14/2019 [facility] Procedures Procedure Code Date Perfomer Comments Source Colonoscopy [id number] 09/18/2007 [facility] Tonsillectomy [id number] 09/18/1981 [facility] Splenectomy [id number] [facility] Assessment and Plan Assessment and Plan Date Source Extracted from:Title: EGS Discharge Summ ruth Author: Rodger Balderrama MD Date: 06/14/19 Date of Admission: 06/09/2019 23:02 Date of Discharge: 06/14/2019 17:44 Admitting Attending: Santo Reina DO Diagnosis: Bilateral Thigh Abscesses Consultations: Consulting Physicians: Prabhakar Peña MD Office: Service: General Surgery Surgical Procedures: Incision and [...] erythema, and warmth. He first went to [facility] and had the right swelling I&D and subsequently packed. He was then prescribed Bactrim (day 7) and clindamycin (day 3) from [facility]. Bilateral swellings have continued to worsen and he developed fever (102), nausea, and non bloody emesis yesterday. He was seen at [facility] today and was referred here after CT [...] 160 mg oral tablet :1 tab, PO, [id number], for 6 day, 12 tab, 0 Refill(s) [...] by: Rodger Balderrama MD - 06/14/2019 12:33 acetaminophen 500 mg oral tablet :1,000 mg, 2 tab, PO, Q6H, for 14 day, 112 tab, 0 Refill(s) Ordered by: Rodger Balderrama MD - 06/14/2019 12:33 Follow Up With Prabhakar Peña MD, Call for appointment, within: 2 Weeks, reason: Follow Up On Treatment Rodger Balderrama MD General Surgery PGY-1 MSO# [id number] Pager #[phone] Addendum by Prabhakar Peña MD on 06/15/2019 12:09 ATTENDING ATTESTATION: I have seen and examined the patient with the above provider (resident/fellow). Futhermore, I concur with their findings and plan as noted above. Extracted from:Title: EGS Progress Note Author: Myra Aponte DO Date: 06/13/19 Abscess of hip(L02.419) Cellulitis(L03.90) 1. Cellulitis - Discontinue meropenem per ID recs - Discontinued vancomycin and start PO bactrim 1 tab q12h for 7 days - Regular diet - ID recommended MRI of hips however in OR, no visualization of abscess going near bone so no current indications for MRI at this time Myra Aponte DO Anesthesiology PGY-1 Addendum by Prabhakar Peña MD on 06/15/2019 16:11 CDT ATTENDING ATTESTATION: I have seen and examined the patient with the above provider (resident/fellow). Futhermore, I concur with their findings and plan as noted above. Extracted from:Title: EGD History and Physical Author: Brielle Dowd [...] ppx heparin Brielle Dowd MD Anesthesia, PGY-1 [facility] ATTENDING ADDENDUM: I have personally seen and examined this patient with Dr. Dowd. Furthermore I have reviewed the resident's note and I agree with the above exam, assessment, and plan. I have reviewed all relevant imaging and interpretted it myself. Gregor. Nuno [id number] 06/14/2019 [facility] Extracted from:Title: FMS Progress Note Author: Polina Carlson MD Date: 12/14/17 1.Volume overload 2.Splenic hemorrhage 3.Splenic laceration [...] splenectomy. Care plan discussed w/attending, Dr. Rinaldi. Polina Carlson MD MPH PGY1 [facility]O [id number] Addendum by Allan Rinaldi MD on 12/15/2017 12:47 CDT I was physically present during the irene portions of the patient evaluation and the medical decision making when performed by the resident and I concur with the above documented decisions made by the team under my guidance. Extracted from:Title: Trauma Author: German Carlson MD Date: 12/08/17 Date of Service: 12/08/17 Attending: Robyn Hydrographer(s): Cachorro MASON; Ge GRESHAM PreOp Dx: splenic hematoma and hemorrhagic shock PostOp Dx: 1. Grade III splenic laceration (Subcaps ular, >50% surface area and ruptured; AIS 3) 2. Hemorrhagic shock (>20% total blood v olume loss) 3. Hypotension 4. Large hemoperitoneum 5. Splenomegaly Procedure(s): 1. splenectomy Anesthesia: GETA EBL: See anesthesia record IVF: See anesthesia record Complications: None immediate Drains: 1. none Specimens: 1. spleen Findings: 1. large spleen with essentially the ent miky anterolateral capsule sheared off 2. Large volume hemoperitoneum Indications: Patient is a 42 year old male who [...] required ongoing resuscitation requiring splenectomy Operative Description: Approach: The patient was placed in the operating table in supine position and underwent general anesthesia and endotracheal intubation without difficulties. The abdomen was prepped and draped in standard fashion. Preoperative antibiotics were given. Abdomen was entered via a midline laparotomy. Upon entrance to the abdomen a large amount of hemoperitoneum and clot was encountered Exploration: The abdomen was explored by palpating the undersurface [...] suture. The skin was closed with roni Dispo: Extubated- to ICU in stable condition I was present for the entire case Extracted from:Title: Trauma Author: German Carlson MD Date: 12/08/17 Date of Admission: 12/08/17 Requesting Physician: [facility] Consult[employer] Trauma Surgeon:Robyn Time of Initial Patient Assessment: 07 Chief Complaint: "My stomach hurts" History of [...] increased thirst or temperature intolerance Physical Examination: Vitals Tmp(F) Tmp(C) Ttype BP MAP Pulse RR SpO2 FIO2 ETCO2 12/08 06:43 ---- ---- ---- - ---- --- --- -- 100 60% --- 12/08 04:00 ---- ---- ---- 1 39 109 143 42 100 --- --- 12/08 03:30 ---- ---- ---- 1 98 112 22 100 --- --- 12/08 03:00 ---- ---- ---- 1 94 110 19 96 2.0L/m --- 12/08 02:30 ---- ---- ---- 1 92 106 17 100 --- --- Neuro: AAOx3; appropriate mood/affect Head: normocephalic Eyes: PERRL Nose/throat: atraumatic Neck: trachea midline Chest: non-labored respirations; symmetric chest rise Abdomen: +TTP; moderately firm; +rebound Pelvis: stable Genital: normal external male genitalia Rectal: deferred Extremities: atraumatic Vascular: good distal perfusion Labs: Ca Ion WB 1.07 Ca Norm WB 1.09 Lactic Acid Lvl 1.5 Magnesium Lvl 2.2 Sodium Lvl 139 Potassium Lvl 4.2 Chloride Lvl 106 CO2 23 L AGAP 14.2 Glucose Lvl 163 H Creatinine Lvl 1.00 BUN 13 B/C Ratio 13 Total Protein 5.0 L Albumin Lvl 2.4 L Globulin 2.6 L A/G Ratio 0.9 Calcium Lvl 8.0 L ALT 19 AST 20 Alk Phos 34 L Bili Total 0.5 eGFR 94 Phosphorus 5.2 H WBC 12.9 H RBC 3.57 L Hgb 10.2 L Hct 30.0 L MCV 84.1 MCH 28.5 MCHC 33.9 RDW 16.1 H Platelet [address] reviewed- significant splenomegaly with subcapsular hematoma/hemoperitoneum Assessment and Plan: 42 year old male with splenomegaly and s plenic hematoma. Injuries and plan as follows: Differential includes spontaneous rupture due to mono and delayed splenic rupture from previous abdominal trauma. Pt with significant abdominal pain and transfusion requirement- emergent splenectomy recommended. Pt agreeable German Carlson MD MSO# [id number] 12/15/2017 [facility] Plan of Care No Data Provided for This Section Social History Social History Date Source Social History TypeResponse Alcohol Current, Type Beer. Frequency: Daily. Smoking Status Current every day smoker; Type: Cigarettes; Ready to change: Yes; Exposure to Tobacco Smoke None; Cigarette Smoking Last 365 Days Yes; Reg Smoking Cessation Counseling No; Tobacco use per day: 2; Started at age: 20.0; entered on: 06/09/19 12/08/2017 [facility] Social History TypeResponse Alcohol Current, Type Beer. Frequency: Daily. Smoking Status Current every day smoker; Type: Cigarettes; Ready to change: Yes; Exposure to Tobacco Smoke None; Cigarette Smoking Last 365 Days Yes; Reg Smoking Cessation Counseling No; Tobacco use per day: 2; Started at age: 20.0; entered on: 12/08/17 12/08/2017 [facility] Family History No Data Provided for This Section Advance Directives No Data Provided for This Section Functional Status No Data Provided for This Section
--- OUTSIDE RECORDS SUMMARY | 2020-02-02 13:07 | XMS REPORT ---
Author Author [facility] t Organization [facility] Address [address] [place] [address] Phone Unavailable Care Team Providers Care Continuous Miner Name Role Phone Diony Reinas Batsheva Rinaldi Attphys Diony Reina Admphys Batsheva Rinaldis Payers Payer Name Policy Type Policy Number Effective Date Expiration Date S ource Problems This patient has no known problems. Allergies, Adverse Reactions, Alerts Allergy Name Allergy Type Status Severity Reaction(s) Onset Date Inacti ve Date Treating Clinician Comments Source iodine DA Active SV 2020-01-30 00:00:00 [facility] iodine DA Active SV 2020-01-25 00:00:00 [facility] iodine DA Active SV 2013-08-30 00:00:00 [facility] Medications This patient has no known medications. Procedures This patient has no known procedures. Encounters Start Date/Time End Date/Time Encounter Type Admission Type [facility] Care Department Encounter ID Source 2019-06-09 23:02:00 2019-06-14 16:01:00 Outpatient Grgeor Reina [facility] [id number] [facility] 2019-06-09 21:48:00 2019-06-09 21:48:00 Inpatient E [facility] [id number] [facility] 2017-12-07 22:28:00 2017-12-15 16:00:00 Outpatient Allan [facility] [id number] [facility] Results Test Description Test Time Test Comments Results Result Comments Source - CT ABD PELVIS W/O CONT 2020-01-30 16:37:00 N lynn: [facility] : 1975 Age/S: 44 / M [address] Unit #: [id number] Loc: [place] [address] Phys: Henrry Khanna DO Acct: [id number] Dis Date: Status: REG ER PHONE #: [phone] Exam Date: 01/30/2020 1630 FAX #: [phone] Reason: abd pain/rectal bleeding/recent ileus EXAMS: CPT CODE: [id number] CT ABD PELVIS W/O CONT [id number] REASON FOR EXAM: abd pain/rectal bleeding/recent ileus EXAM ORDER DATE: 01/30/2020 2:17 PM Ordering: Henrry Khanna DO Attending:Henrry Khanna DO Location:[facility] PROCEDURE: - CT ABD PELVIS W/O CONT COMPARISON: 01/25/2020 FINDINGS: CT images of the abdomen and pelvis were obtained without IV and without oral contrast at 5mm. Dose modulation, iterative reconstruction, and/or weight based adjustment of the MA/KV was utilized to reduce the radiation dose to as low as reasonably achievable. The liver, spleen, pancreas are grossly within normal limits. The gall bladder is unremarkable by CT. The kidneys are within normal limits. The urinary bladder is unremarkable. The colon, small bowel, and stomach are within normal limits without evidence of obstruction. The appendix is unremarkable No evidence of free air or free fluid. The uterus is unremarkable. IMPRESSION: No acute findings in the abdomen. at 1637 Reported and signed by: Paramjit Gaspar M.D. CC: Henrry Khanna DO Technologist:Yahaira Alford RT(R) CTDI: DLP: Trnscb Date/Time: 01/30/2020 (1637) Ag Orig Print D/T: S: 01/30/2020 (6843) PAGE 1 Signed Report BASIC METABOLIC PANEL 2020-01-30 16:17:00 Test Item SODIUM (test code = NA) 138 mmol/L 136-145 N POTASSIUM (test code = K) 4.6 mmol/L 3.5-5.1 N CHLORIDE (test code = CL) 106.0 mmol/L 98-107 N CARBON DIOXIDE (test code = CO2) 26.0 mmol/L 21-32 N ANION GAP (test code = GAP) 10.6 10-20 N GLUCOSE (test code = GLU) 81 mg/dL 74-106 N BLOOD UREA NITROGEN (test code = BUN) 9 mg/dL 7-18 N GLOMERULAR FILTRATION RATE (test code = GFR) > 60 mL/min >=60 Estimated GFR by using Modified MDRD formula.Chronic kidney disease is defined as either kidney damageor GFR <60 mL/min/1.73 m2 for >3 months. CREATININE (test code = CREAT) 1.30 mg/dL 0.7-1.3 N BUN/CREATININE RATIO (test code = BUN/CREA) 6.9 10-20 L CALCIUM (test code = CA) 8.9 mg/dL 8.5-10.1 N HEPATIC FUNCTION [id number] 16:17:00* Test Item Value Reference Range Interpretation Comments TOTAL PROTEIN (test code = PROT) 7.3 gram/dL 6.4-8.2 N ALBUMIN (test code = ALB) 3.5 g/dL 3.4-5.0 N GLOBULIN (test code = GLOB) 3.8 gram/dL 2.7-4.2 N ALBUMIN/GLOBULIN RATIO (test code = A/G) 0.9 0.75-1.50 N BILIRUBIN TOTAL (test code = BILT) 0.70 mg/dL 0.0-1.0 N BILIRUBIN DIRECT (test code = BILD) 0.22 mg/dL 0.0-0.20 H SGOT/AST (test code = AST) 36 IUnit/L 15-37 N SGPT/ALT (test code = ALT) 69 IUnit/L 12-78 N ALKALINE PHOSPHATASE TOTAL (test code = ALKP) 62 IUnit/L 45-117 N Note change in reference range due to change in reagent. [id number] 16:17:00* Test Item Value Reference Range Interpretation Comments LIPASE (test code = LIP) 227 U/L 73.0-393.0 N BASIC METABOLIC [id number] 16:10:00* Test Item Value Reference Range Interpretation Comments SODIUM (test code = NA) 138 mmol/L 136-145 N POTASSIUM (test code = K) 4.6 mmol/L 3.5-5.1 N CHLORIDE (test code = CL) 106.0 mmol/L 98-107 N CARBON DIOXIDE (test code = CO2) mmol/L 21-32 ANION GAP (test code = GAP) 10-20 GLUCOSE (test code = GLU) mg/dL 74-106 BLOOD UREA NITROGEN (test code = BUN) mg/dL 7-18 GLOMERULAR FILTRATION RATE (test code = GFR) mL/min >=60 CREATININE (test code = CREAT) mg/dL 0.7-1.3 BUN/CREATININE RATIO (test code = BUN/CREA) 10-20 CALCIUM (test code = CA) mg/dL 8.5-10.1 HEPATIC FUNCTION [id number] 16:10:00* Test Item Value Reference Range Interpretation Comments TOTAL PROTEIN (test code = PROT) gram/dL 6.4-8.2 ALBUMIN (test code = ALB) g/dL 3.4-5.0 GLOBULIN (test code = GLOB) gram/dL 2.7-4.2 ALBUMIN/GLOBULIN RATIO (test code = A/G) 0.75-1.50 BILIRUBIN TOTAL (test code = BILT) mg/dL 0.0-1.0 BILIRUBIN DIRECT (test code = BILD) mg/dL 0.0-0.20 SGOT/AST (test code = AST) IUnit/L 15-37 SGPT/ALT (test code = ALT) IUnit/L 12-78 ALKALINE PHOSPHATASE TOTAL (test code = ALKP) IUnit/L 45-117 [id number] 16:10:00* Test Item Value Reference Range Interpretation Comments LIPASE (test code = LIP) U/L 73.0-393.0 CBC W/O [id number] 16:03:00* Test Item Value Reference Range Interpretation Comments WHITE BLOOD CELL (test code = WBC) 13.7 K/mm3 4.5-12.5 H RED BLOOD CELL (test code = RBC) 6.54 mill/mm3 4.0-5.8 H HEMOGLOBIN (test code = HGB) 17.7 gram/dL 13.0-17.5 H HEMATOCRIT (test code = HCT) 51.5 % 42.0-52.0 N MEAN CELL VOLUME (test code = MCV) 78.7 fL 80-98 L MEAN CELL HGB (test code = MCH) 27.1 picogram 27.0-33.0 N MEAN CELL HGB CONCETRATION (test code = MCHC) 34.4 gram/dL 33.0-36. 0 N RED CELL DISTRIBUTION WIDTH (test code = RDW) 22.4 % 11.6-16. 2 H PLATELET COUNT (test code = PLT) 502 K/mm3 150-450 H MEAN PLATELET VOLUME (test code = MPV) 10.4 fL 6.7-11.0 N CBC W/O [id number] 16:01:00* Test Item Value Reference Range Interpretation Comments WHITE BLOOD CELL (test code = WBC) K/mm3 4.5-12.5 RED BLOOD CELL (test code = RBC) mill/mm3 4.0-5.8 HEMOGLOBIN (test code = HGB) gram/dL 13.0-17.5 HEMATOCRIT (test code = HCT) 51.5 % 42.0-52.0 N MEAN CELL VOLUME (test code = MCV) fL 80-98 MEAN CELL HGB (test code = MCH) picogram 27.0-33.0 MEAN CELL HGB CONCETRATION (test code = MCHC) gram/dL 33.0-36. 0 RED CELL DISTRIBUTION WIDTH (test code = RDW) % 11.6-16. 2 PLATELET COUNT (test code = PLT) K/mm3 150-450 MEAN PLATELET VOLUME (test code = MPV) fL 6.7-11.0 BASIC METABOLIC [id number] 04:52:00* Test Item Value Reference Range Interpretation Comments SODIUM (test code = NA) 141 mmol/L 136-145 N POTASSIUM (test code = K) 4.1 mmol/L 3.5-5.1 N CHLORIDE (test code = CL) 110.0 mmol/L 98-107 H CARBON DIOXIDE (test code = CO2) mmol/L 21-32 ANION GAP (test code = GAP) 10-20 GLUCOSE (test code = GLU) mg/dL 74-106 BLOOD UREA NITROGEN (test code = BUN) mg/dL 7-18 GLOMERULAR FILTRATION RATE (test code = GFR) mL/min >=60 CREATININE (test code = CREAT) mg/dL 0.7-1.3 BUN/CREATININE RATIO (test code = BUN/CREA) 10-20 CALCIUM (test code = CA) 8.0 mg/dL 8.5-10.1 L BASIC METABOLIC [id number] 04:52:00* Test Item Value Reference Range Interpretation Comments SODIUM (test code = NA) 141 mmol/L 136-145 N POTASSIUM (test code = K) 4.1 mmol/L 3.5-5.1 N CHLORIDE (test code = CL) 110.0 mmol/L 98-107 H CARBON DIOXIDE (test code = CO2) 27.0 mmol/L 21-32 N ANION GAP (test code = GAP) 8.1 10-20 L GLUCOSE (test code = GLU) 83 mg/dL 74-106 N BLOOD UREA NITROGEN (test code = BUN) 8 mg/dL 7-18 N GLOMERULAR FILTRATION RATE (test code = GFR) > 60 mL/min >=60 Estimated GFR by using Modified MDRD formula.Chronic kidney disease is defined as either kidney damageor GFR <60 mL/min/1.73 m2 for >3 months. CREATININE (test code = CREAT) 1.20 mg/dL 0.7-1.3 N BUN/CREATININE RATIO (test code = BUN/CREA) 6.7 10-20 L CALCIUM (test code = CA) 8.0 mg/dL 8.5-10.1 L CBC W/AUTO [id number] 04:50:00* Test Item Value Reference Range Interpretation Comments WHITE BLOOD CELL (test code = WBC) 12.4 K/mm3 4.5-12.5 N RED BLOOD CELL (test code = RBC) 5.83 mill/mm3 4.0-5.8 H HEMOGLOBIN (test code = HGB) 15.9 gram/dL 13.0-17.5 N HEMATOCRIT (test code = HCT) 46.5 % 42.0-52.0 N MEAN CELL VOLUME (test code = MCV) 79.8 fL 80-98 L MEAN CELL HGB (test code = MCH) 27.3 picogram 27.0-33.0 N MEAN CELL HGB CONCETRATION (test code = MCHC) 34.2 gram/dL 33.0-36. 0 N RED CELL DISTRIBUTION WIDTH (test code = RDW) 22.2 % 11.6-16. 2 H RED CELL DISTRIBUTION WIDTH SD (test code = RDW-SD) 60.2 fL 37 .0-51.0 H PLATELET COUNT (test code = PLT) 455 K/mm3 150-450 H MEAN PLATELET VOLUME (test code = MPV) 9.5 fL 6.7-11.0 N NEUTROPHIL % (test code = NT%) 53.7 % 39.0-69.0 N IMMATURE GRANULOCYTE % (test code = IG%) 0.2 % 0.0-5.0 N LYMPHOCYTE % (test code = LY%) 27.9 % 25.0-55.0 N MONOCYTE % (test code = MO%) 14.6 % 0.0-10.0 H EOSINOPHIL % (test code = EO%) 3.1 % 0.0-5.0 N BASOPHIL % (test code = BA%) 0.5 % 0.0-1.0 N NUCLEATED RBC % (test code = NRBC%) 0.0 % 0-0 N NEUTROPHIL # (test code = NT#) 6.68 K/mm3 1.8-7.7 N IMMATURE GRANULOCYTE # (test code = IG#) 0.03 x10 3/uL 0-0.03 N LYMPHOCYTE # (test code = LY#) 3.47 K/mm3 1.0-5.0 N MONOCYTE # (test code = MO#) 1.82 K/mm3 0-0.8 H EOSINOPHIL # (test code = EO#) 0.38 K/mm3 0.0-0.5 N BASOPHIL # (test code = BA#) 0.06 K/mm3 0.0-0.2 N NUCLEATED RBC # (test code = NRBC#) 0.00 K/mm3 0.0-0.1 N MANUAL DIFF REQUIRED (test code = MDIFF) NO, ONLY SCAN NEEDED DIFFERENTIAL [id number] 04:50:00* Test Item Value Reference Range Interpretation Comments STAIN ACCEPTABILITY (test code = STN ACCEPTABLE) STAIN ACCEPTABLE POLYCHROMASIA (test code = POLC) 1+ POIKILOCYTOSIS (test code = POIK) 2+ ANISOCYTOSIS (test code = ANISO) 1+ MACROCYTOSIS (test code = MACR) 1+ TARGET CELLS (test code = TGT) 2+ TEAR DROP CELLS (test code = TEAR) 1+ MORPHOLOGY COMMENT (test code = MOC) TEST NOT PERFORMED PLATELET ESTIMATE (test code = PLTEST) INCREASED PLATELET MORPHOLOGY (test code = PLTMORPH) NORMAL LACTIC [id number] 04:39:00* Test Item Value Reference Range Interpretation Comments LACTIC ACID (test code = LACT) 0.7 mmol/L 0.4-1.9 N CBC W/AUTO [id number] 04:26:00* Test Item Value Reference Range Interpretation Comments WHITE BLOOD CELL (test code = WBC) 12.4 K/mm3 4.5-12.5 N RED BLOOD CELL (test code = RBC) 5.83 mill/mm3 4.0-5.8 H HEMOGLOBIN (test code = HGB) 15.9 gram/dL 13.0-17.5 N HEMATOCRIT (test code = HCT) 46.5 % 42.0-52.0 N MEAN CELL VOLUME (test code = MCV) 79.8 fL 80-98 L MEAN CELL HGB (test code = MCH) 27.3 picogram 27.0-33.0 N MEAN CELL HGB CONCETRATION (test code = MCHC) 34.2 gram/dL 33.0-36. 0 N RED CELL DISTRIBUTION WIDTH (test code = RDW) 22.2 % 11.6-16. 2 H RED CELL DISTRIBUTION WIDTH SD (test code = RDW-SD) 60.2 fL 37 .0-51.0 H PLATELET COUNT (test code = PLT) 455 K/mm3 150-450 H MEAN PLATELET VOLUME (test code = MPV) 9.5 fL 6.7-11.0 N NEUTROPHIL % (test code = NT%) 53.7 % 39.0-69.0 N IMMATURE GRANULOCYTE % (test code = IG%) 0.2 % 0.0-5.0 N LYMPHOCYTE % (test code = LY%) 27.9 % 25.0-55.0 N MONOCYTE % (test code = MO%) 14.6 % 0.0-10.0 H EOSINOPHIL % (test code = EO%) 3.1 % 0.0-5.0 N BASOPHIL % (test code = BA%) 0.5 % 0.0-1.0 N NUCLEATED RBC % (test code = NRBC%) 0.0 % 0-0 N NEUTROPHIL # (test code = NT#) 6.68 K/mm3 1.8-7.7 N IMMATURE GRANULOCYTE # (test code = IG#) 0.03 x10 3/uL 0-0.03 N LYMPHOCYTE # (test code = LY#) 3.47 K/mm3 1.0-5.0 N MONOCYTE # (test code = MO#) 1.82 K/mm3 0-0.8 H EOSINOPHIL # (test code = EO#) 0.38 K/mm3 0.0-0.5 N BASOPHIL # (test code = BA#) 0.06 K/mm3 0.0-0.2 N NUCLEATED RBC # (test code = NRBC#) 0.00 K/mm3 0.0-0.1 N MANUAL DIFF REQUIRED (test code = MDIFF) NO, ONLY SCAN NEEDED DIFFERENTIAL [id number] 04:26:00* Test Item Value Reference Range Interpretation Comments STAIN ACCEPTABILITY (test code = STN ACCEPTABLE) CABOT RINGS (test code = CAB) MORPHOLOGY COMMENT (test code = MOC) PLATELET ESTIMATE (test code = PLTEST) PLATELET MORPHOLOGY (test code = PLTMORPH) CBC W/AUTO [id number] 04:26:00* Test Item Value Reference Range Interpretation Comments WHITE BLOOD CELL (test code = WBC) 12.4 K/mm3 4.5-12.5 N RED BLOOD CELL (test code = RBC) 5.83 mill/mm3 4.0-5.8 H HEMOGLOBIN (test code = HGB) 15.9 gram/dL 13.0-17.5 N HEMATOCRIT (test code = HCT) 46.5 % 42.0-52.0 N MEAN CELL VOLUME (test code = MCV) 79.8 fL 80-98 L MEAN CELL HGB (test code = MCH) 27.3 picogram 27.0-33.0 N MEAN CELL HGB CONCETRATION (test code = MCHC) 34.2 gram/dL 33.0-36. 0 N RED CELL DISTRIBUTION WIDTH (test code = RDW) 22.2 % 11.6-16. 2 H RED CELL DISTRIBUTION WIDTH SD (test code = RDW-SD) 60.2 fL 37 .0-51.0 H PLATELET COUNT (test code = PLT) 455 K/mm3 150-450 H MEAN PLATELET VOLUME (test code = MPV) 9.5 fL 6.7-11.0 N NEUTROPHIL % (test code = NT%) 53.7 % 39.0-69.0 N IMMATURE GRANULOCYTE % (test code = IG%) 0.2 % 0.0-5.0 N LYMPHOCYTE % (test code = LY%) 27.9 % 25.0-55.0 N MONOCYTE % (test code = MO%) 14.6 % 0.0-10.0 H EOSINOPHIL % (test code = EO%) 3.1 % 0.0-5.0 N BASOPHIL % (test code = BA%) 0.5 % 0.0-1.0 N NUCLEATED RBC % (test code = NRBC%) 0.0 % 0-0 N NEUTROPHIL # (test code = NT#) 6.68 K/mm3 1.8-7.7 N IMMATURE GRANULOCYTE # (test code = IG#) 0.03 x10 3/uL 0-0.03 N LYMPHOCYTE # (test code = LY#) 3.47 K/mm3 1.0-5.0 N MONOCYTE # (test code = MO#) 1.82 K/mm3 0-0.8 H EOSINOPHIL # (test code = EO#) 0.38 K/mm3 0.0-0.5 N BASOPHIL # (test code = BA#) 0.06 K/mm3 0.0-0.2 N NUCLEATED RBC # (test code = NRBC#) 0.00 K/mm3 0.0-0.1 N MANUAL DIFF REQUIRED (test code = MDIFF) NO, ONLY SCAN NEEDED DIFFERENTIAL [id number] 04:26:00* Test Item Value Reference Range Interpretation Comments STAIN ACCEPTABILITY (test code = STN ACCEPTABLE) CABOT RINGS (test code = CAB) MORPHOLOGY COMMENT (test code = MOC) PLATELET ESTIMATE (test code = PLTEST) PLATELET MORPHOLOGY (test code = PLTMORPH) CBC W/AUTO [id number] 04:26:00* Test Item Value Reference Range Interpretation Comments WHITE BLOOD CELL (test code = WBC) 12.4 K/mm3 4.5-12.5 N RED BLOOD CELL (test code = RBC) 5.83 mill/mm3 4.0-5.8 H HEMOGLOBIN (test code = HGB) 15.9 gram/dL 13.0-17.5 N HEMATOCRIT (test code = HCT) 46.5 % 42.0-52.0 N MEAN CELL VOLUME (test code = MCV) 79.8 fL 80-98 L MEAN CELL HGB (test code = MCH) 27.3 picogram 27.0-33.0 N MEAN CELL HGB CONCETRATION (test code = MCHC) 34.2 gram/dL 33.0-36. 0 N RED CELL DISTRIBUTION WIDTH (test code = RDW) 22.2 % 11.6-16. 2 H RED CELL DISTRIBUTION WIDTH SD (test code = RDW-SD) 60.2 fL 37 .0-51.0 H PLATELET COUNT (test code = PLT) 455 K/mm3 150-450 H MEAN PLATELET VOLUME (test code = MPV) 9.5 fL 6.7-11.0 N NEUTROPHIL % (test code = NT%) 53.7 % 39.0-69.0 N IMMATURE GRANULOCYTE % (test code = IG%) 0.2 % 0.0-5.0 N LYMPHOCYTE % (test code = LY%) 27.9 % 25.0-55.0 N MONOCYTE % (test code = MO%) 14.6 % 0.0-10.0 H EOSINOPHIL % (test code = EO%) 3.1 % 0.0-5.0 N BASOPHIL % (test code = BA%) 0.5 % 0.0-1.0 N NUCLEATED RBC % (test code = NRBC%) 0.0 % 0-0 N NEUTROPHIL # (test code = NT#) 6.68 K/mm3 1.8-7.7 N IMMATURE GRANULOCYTE # (test code = IG#) 0.03 x10 3/uL 0-0.03 N LYMPHOCYTE # (test code = LY#) 3.47 K/mm3 1.0-5.0 N MONOCYTE # (test code = MO#) 1.82 K/mm3 0-0.8 H EOSINOPHIL # (test code = EO#) 0.38 K/mm3 0.0-0.5 N BASOPHIL # (test code = BA#) 0.06 K/mm3 0.0-0.2 N NUCLEATED RBC # (test code = NRBC#) 0.00 K/mm3 0.0-0.1 N MANUAL DIFF REQUIRED (test code = MDIFF) NO, ONLY SCAN NEEDED DIFFERENTIAL [id number] 04:26:00* Test Item Value Reference Range Interpretation Comments STAIN ACCEPTABILITY (test code = STN ACCEPTABLE) MORPHOLOGY COMMENT (test code = MOC) PLATELET ESTIMATE (test code = PLTEST) PLATELET MORPHOLOGY (test code = PLTMORPH) CBC W/AUTO [id number] 04:26:00* Test Item Value Reference Range Interpretation Comments WHITE BLOOD CELL (test code = WBC) 12.4 K/mm3 4.5-12.5 N RED BLOOD CELL (test code = RBC) 5.83 mill/mm3 4.0-5.8 H HEMOGLOBIN (test code = HGB) 15.9 gram/dL 13.0-17.5 N HEMATOCRIT (test code = HCT) 46.5 % 42.0-52.0 N MEAN CELL VOLUME (test code = MCV) 79.8 fL 80-98 L MEAN CELL HGB (test code = MCH) 27.3 picogram 27.0-33.0 N MEAN CELL HGB CONCETRATION (test code = MCHC) 34.2 gram/dL 33.0-36. 0 N RED CELL DISTRIBUTION WIDTH (test code = RDW) 22.2 % 11.6-16. 2 H RED CELL DISTRIBUTION WIDTH SD (test code = RDW-SD) 60.2 fL 37 .0-51.0 H PLATELET COUNT (test code = PLT) 455 K/mm3 150-450 H MEAN PLATELET VOLUME (test code = MPV) 9.5 fL 6.7-11.0 N NEUTROPHIL % (test code = NT%) 53.7 % 39.0-69.0 N IMMATURE GRANULOCYTE % (test code = IG%) 0.2 % 0.0-5.0 N LYMPHOCYTE % (test code = LY%) 27.9 % 25.0-55.0 N MONOCYTE % (test code = MO%) 14.6 % 0.0-10.0 H EOSINOPHIL % (test code = EO%) 3.1 % 0.0-5.0 N BASOPHIL % (test code = BA%) 0.5 % 0.0-1.0 N NUCLEATED RBC % (test code = NRBC%) 0.0 % 0-0 N NEUTROPHIL # (test code = NT#) 6.68 K/mm3 1.8-7.7 N IMMATURE GRANULOCYTE # (test code = IG#) 0.03 x10 3/uL 0-0.03 N LYMPHOCYTE # (test code = LY#) 3.47 K/mm3 1.0-5.0 N MONOCYTE # (test code = MO#) 1.82 K/mm3 0-0.8 H EOSINOPHIL # (test code = EO#) 0.38 K/mm3 0.0-0.5 N BASOPHIL # (test code = BA#) 0.06 K/mm3 0.0-0.2 N NUCLEATED RBC # (test code = NRBC#) 0.00 K/mm3 0.0-0.1 N MANUAL DIFF REQUIRED (test code = MDIFF) NO, ONLY SCAN NEEDED DIFFERENTIAL [id number] 04:26:00* Test Item Value Reference Range Interpretation Comments STAIN ACCEPTABILITY (test code = STN ACCEPTABLE) CABOT RINGS (test code = CAB) MORPHOLOGY COMMENT (test code = MOC) PLATELET ESTIMATE (test code = PLTEST) PLATELET MORPHOLOGY (test code = PLTMORPH) CBC W/AUTO [id number] 04:20:00* Test Item Value Reference Range Interpretation Comments WHITE BLOOD CELL (test code = WBC) K/mm3 4.5-12.5 RED BLOOD CELL (test code = RBC) mill/mm3 4.0-5.8 HEMOGLOBIN (test code = HGB) 15.9 gram/dL 13.0-17.5 N HEMATOCRIT (test code = HCT) 46.5 % 42.0-52.0 N MEAN CELL VOLUME (test code = MCV) fL 80-98 MEAN CELL HGB (test code = MCH) picogram 27.0-33.0 MEAN CELL HGB CONCETRATION (test code = MCHC) gram/dL 33.0-36. 0 RED CELL DISTRIBUTION WIDTH (test code = RDW) % 11.6-16. 2 RED CELL DISTRIBUTION WIDTH SD (test code = RDW-SD) fL 37 .0-51.0 PLATELET COUNT (test code = PLT) K/mm3 150-450 MEAN PLATELET VOLUME (test code = MPV) fL 6.7-11.0 NEUTROPHIL % (test code = NT%) % 39.0-69.0 IMMATURE GRANULOCYTE % (test code = IG%) % 0.0-5.0 LYMPHOCYTE % (test code = LY%) % 25.0-55.0 MONOCYTE % (test code = MO%) % 0.0-10.0 EOSINOPHIL % (test code = EO%) % 0.0-5.0 BASOPHIL % (test code = BA%) % 0.0-1.0 NEUTROPHIL # (test code = NT#) K/mm3 1.8-7.7 LYMPHOCYTE # (test code = LY#) K/mm3 1.0-5.0 MONOCYTE # (test code = MO#) K/mm3 0-0.8 EOSINOPHIL # (test code = EO#) K/mm3 0.0-0.5 BASOPHIL # (test code = BA#) K/mm3 0.0-0.2 PROCALCITONIN (PCT)2020-01-26 02:41:00* Test Item Value Reference Range Interpretation Comments PROCALCITONIN (PCT) (test code = PROCAL) 0.07 ng/ml Concentration Interpretation (ng/mL) <0.51 Sepsis is not likely. Local bacterial infection is possible. (LOW RISK for progression to Sepsis) 0.51 - 2.00 Sepsis is possible, but other conditions are known to elevate PCT as well. (MODERATE RISK for progression to Sepsis) > 2.00 Sepsis is likely, unless other causes are known. (HIGH RISK for progression to Severe Sepsis or Septic Shock) 10.00 High likelihood of Severe Sepsis or Septic or higher Shock. *Increased PCT levels may not always be related to systemic bacterial infection.*Low PCT levels do not automatically exclude the presence of bacterial infection.*All results should be interpreted taking into account the patients history. - CT ABD PELVIS W/O [id number] 21:19:00 Name: MINE ROUSE [facility] : 1975 Age/S: 44 / M [address] [facility] Unit #: [id number] Loc: [place] [address] Phys: Raquel De La Rosa NP Acct: [id number] Dis Date: Status: REG ER PHONE #: [phone] Exam Date: 01/25/20202107 FAX #: [phone] Reason: abd pain EXAMS: CPT CODE: [id number] CT ABD PELVIS W/O CONT 36212 HISTORY: Abdominal pain TECHNIQUE: [address] images were obtained through the abdomen and pelvis without contrast. Sagittal and coronal reformatted images were generated. Automated exposure reduction (Auto mA/Smart mA) was utilized in compliance with ACR Image [employer] with DLP of 580 mGy-cm. COMPARISON: 05/24/19 FINDINGS: Statements: Lack of intravenous contrast limits evaluation of abdominopelvic organs and vasculature. Lack of oral contrast limits evaluation of bowel. THORACIC: Bibasilar platelike and subsegmental atelectasis. Normal heart size. HEPATOBILIARY: Liver is normal without focal lesion. Gallbl adder is normal. No biliary dilation. PANCREAS: Normal. SPLEEN : Absent. ADRENALS: Normal. GASTROINTESTINAL: Stomach is unremarkab le. Fluid distended distal ileum. Mildly enlarged appendix without periapp endiceal stranding. Colon is unremarkable. GENITOURINARY: Left infer ior pole 1 cm renal cyst. Right kidney is unremarkable. No hydronephrosis. Urinary bladder is unremarkable. Seminal vesicles and prostate gland are unremarkable. VASCULAR: No aortic aneurysm. LYMPHATICS: No enlarged lymph nodes by CT size criteria. PERITONEUM/OTHER: No intraperitoneal free air. No intraperitoneal free fluid. BONES/SOFT TISSUES: Mild degen erative changes of the spine, sacral iliac joints, and hips. IMPRESSION: Mildly enlarged appendix without periap pendiceal stranding. Correlate clinically to exclude early/mild appendic itis. Fluid distended distal ileum without transition point, s uspect ileus. PAGE 1 Signed Report (CONTINUED) Name: MINE ROUSE [facility] : 1975 Age/S: 44 / M [address] [facility] Unit #: [id number] Loc: [place] [address] Phys: Raquel De La Rosa NP Acct: [id number] Dis Date: Status: REG ER PHONE #: [phone] Exam Date: 01/25/20202107 FAX #: [phone] Reason: abd pain EXAMS: CPT CODE: [id number] CT ABD PELVIS W/O CONT 07085 < Continued> LOCATION: LP at 2119 Reported and signed by: Melania Ordonez D.O. CC: Wily Marquez MD; Raquel De La Rosa NP Technologist:Shaan Kumar, RT(R)(CT) CTDI: DLP: Trnscb Date/Time: 01/25/2020 (2118) [email or web address] Orig Print D/T: S: 01/25/2020 (2121) PAGE 2 Signed Report BASIC METABOLIC [id number] 20:53:00* Test Item Value Reference Range Interpretation Comments SODIUM (test code = NA) 139 mmol/L 136-145 N POTASSIUM (test code = K) 4.1 mmol/L 3.5-5.1 N CHLORIDE (test code = CL) 104.0 mmol/L 98-107 N CARBON DIOXIDE (test code = CO2) 29.0 mmol/L 21-32 N ANION GAP (test code = GAP) 10.1 10-20 N GLUCOSE (test code = GLU) 83 mg/dL 74-106 N BLOOD UREA NITROGEN (test code = BUN) 10 mg/dL 7-18 N GLOMERULAR FILTRATION RATE (test code = GFR) 56 mL/min >=60 Estimated GFR by using Modified MDRD formula.Chronic kidney disease is defined as either kidney damageor GFR <60 mL/min/1.73 m2 for >3 months. CREATININE (test code = CREAT) 1.40 mg/dL 0.7-1.3 H BUN/CREATININE RATIO (test code = BUN/CREA) 7.1 10-20 L CALCIUM (test code = CA) 8.7 mg/dL 8.5-10.1 N HEPATIC FUNCTION [id number] 20:53:00* Test Item Value Reference Range Interpretation Comments TOTAL PROTEIN (test code = PROT) 7.4 gram/dL 6.4-8.2 N ALBUMIN (test code = ALB) 3.5 g/dL 3.4-5.0 N GLOBULIN (test code = GLOB) 3.9 gram/dL 2.7-4.2 N ALBUMIN/GLOBULIN RATIO (test code = A/G) 0.9 0.75-1.50 N BILIRUBIN TOTAL (test code = BILT) 0.80 mg/dL 0.0-1.0 N BILIRUBIN DIRECT (test code = BILD) 0.27 mg/dL 0.0-0.20 H SGOT/AST (test code = AST) 34 IUnit/L 15-37 N SGPT/ALT (test code = ALT) 57 IUnit/L 12-78 N ALKALINE PHOSPHATASE TOTAL (test code = ALKP) 62 IUnit/L 45-117 N Note change in reference range due to change in reagent. CREATINE KINASE (CK)2020-01-25 20:53:00* Test Item Value Reference Range Interpretation Comments CREATINE KINASE (CK) (test code = CK) 743 IUnit/L 26-208 H [id number] 20:53:00* Test Item Value Reference Range Interpretation Comments LIPASE (test code = LIP) 159 U/L 73.0-393.0 N [id number] 20:53:00* Test Item Value Reference Range Interpretation Comments TROPONIN-I (test code = TROPI) <0.015 ng/mL 0-0.045 N BASIC METABOLIC [id number] 20:27:00* Test Item Value Reference Range Interpretation Comments SODIUM (test code = NA) 139 mmol/L 136-145 N POTASSIUM (test code = K) 4.1 mmol/L 3.5-5.1 N CHLORIDE (test code = CL) 104.0 mmol/L 98-107 N CARBON DIOXIDE (test code = CO2) mmol/L 21-32 ANION GAP (test code = GAP) 10-20 GLUCOSE (test code = GLU) mg/dL 74-106 BLOOD UREA NITROGEN (test code = BUN) mg/dL 7-18 GLOMERULAR FILTRATION RATE (test code = GFR) mL/min >=60 CREATININE (test code = CREAT) mg/dL 0.7-1.3 BUN/CREATININE RATIO (test code = BUN/CREA) 10-20 CALCIUM (test code = CA) mg/dL 8.5-10.1 HEPATIC FUNCTION [id number] 20:27:00* Test Item Value Reference Range Interpretation Comments TOTAL PROTEIN (test code = PROT) gram/dL 6.4-8.2 ALBUMIN (test code = ALB) g/dL 3.4-5.0 GLOBULIN (test code = GLOB) gram/dL 2.7-4.2 ALBUMIN/GLOBULIN RATIO (test code = A/G) 0.75-1.50 BILIRUBIN TOTAL (test code = BILT) mg/dL 0.0-1.0 BILIRUBIN DIRECT (test code = BILD) mg/dL 0.0-0.20 SGOT/AST (test code = AST) IUnit/L 15-37 SGPT/ALT (test code = ALT) IUnit/L 12-78 ALKALINE PHOSPHATASE TOTAL (test code = ALKP) IUnit/L 45-117 CREATINE KINASE (CK)2020-01-25 20:27:00* Test Item Value Reference Range Interpretation Comments CREATINE KINASE (CK) (test code = CK) IUnit/L 26-208 [id number] 20:27:00* Test Item Value Reference Range Interpretation Comments LIPASE (test code = LIP) U/L 73.0-393.0 [id number] 20:27:00* Test Item Value Reference Range Interpretation Comments TROPONIN-I (test code = TROPI) ng/mL 0-0.045 CBC W/O [id number] 20:25:00* Test Item Value Reference Range Interpretation Comments WHITE BLOOD CELL (test code = WBC) 17.5 K/mm3 4.5-12.5 H RED BLOOD CELL (test code = RBC) 6.47 mill/mm3 4.0-5.8 H HEMOGLOBIN (test code = HGB) 17.6 gram/dL 13.0-17.5 H HEMATOCRIT (test code = HCT) 51.9 % 42.0-52.0 N MEAN CELL VOLUME (test code = MCV) 80.2 fL 80-98 N MEAN CELL HGB (test code = MCH) 27.2 picogram 27.0-33.0 N MEAN CELL HGB CONCETRATION (test code = MCHC) 33.9 gram/dL 33.0-36. 0 N RED CELL DISTRIBUTION WIDTH (test code = RDW) 22.7 % 11.6-16. 2 H PLATELET COUNT (test code = PLT) 493 K/mm3 150-450 H MEAN PLATELET VOLUME (test code = MPV) 9.3 fL 6.7-11.0 N CBC W/O [id number] 20:16:00* Test Item Value Reference Range Interpretation Comments WHITE BLOOD CELL (test code = WBC) K/mm3 4.5-12.5 RED BLOOD CELL (test code = RBC) mill/mm3 4.0-5.8 HEMOGLOBIN (test code = HGB) gram/dL 13.0-17.5 HEMATOCRIT (test code = HCT) 51.9 % 42.0-52.0 N MEAN CELL VOLUME (test code = MCV) fL 80-98 MEAN CELL HGB (test code = MCH) picogram 27.0-33.0 MEAN CELL HGB CONCETRATION (test code = MCHC) gram/dL 33.0-36. 0 RED CELL DISTRIBUTION WIDTH (test code = RDW) % 11.6-16. 2 PLATELET COUNT (test code = PLT) K/mm3 150-450 MEAN PLATELET VOLUME (test code = MPV) fL 6.7-11.0 URINALYSIS [id number] 19:26:00* Test Item Value Reference Range Interpretation Comments UA COLOR (test code = COLU) YELLOW YELLOW UA APPEARANCE (test code = APPU) CLEAR CLEAR UA GLUCOSE DIPSTICK (test code = DGLUU) NEGATIVE mg/dL NEGATIVE UA BILIRUBIN DIPSTICK (test code = BILU) NEGATIVE mg/dL NEGATIVE UA KETONE DIPSTICK (test code = KETU) NEGATIVE mg/dL NEGATIVE UA SPECIFIC GRAVITY (test code = SGU) 1.036 1.001-1.035 UA BLOOD DIPSTICK (test code = JOSE F) Negative mg/dL NEGATIVE UA PH DIPSTICK (test code = CUCA) 6.5 5.0-8.0 UA PROTEIN DIPSTICK (test code = PROU) 30 (1+) mg/dL NEGATIVE A UA UROBILINIOGEN DIPSTICK (test code = URO) 4.0 (2+) mg/dL NEGATIVE A UA NITRITE DIPSTICK (test code = LUIGI) NEGATIVE NEGATIVE UA LEUKOCYTE ESTERASE W REFLEX (test code = LEUUR) NEGATIVE Jorge/uL NEGATIVE UA WBC (test code = WBCU) 0-5 per HPF 0-5 UA RBC (test code = RBCU) 6-10 #/HPF 0-5 A UA EPITHELIAL CELLS (test code = EPIU) Rare (0-1/hpf) per HPF FEW UA BACTERIA (test code = BACU) NONE SEEN #/HPF NONE UA MUCUS (test code = MUCU) FEW #/LPF FEW Urine Source? Clean Catch- CT ABD PELVIS W/O [id number] 01:31:00 [facility] 1975 [facility]S: 43 / M [address] Unit #: [id number] Loc: [place] [address] Phys: Yani De La Rosa SPLIT LEATHER MOSSER Acct: [id number] Di s Date: Status: REG ER PHONE #: Exam Date: 05/24/2019 011 FAX #: Reason: ABD PAIN EXAMS: CPT CODE: [id number] CT ABD PELVIS W/O CONT [id number] AFTER HOURS SERVICE ON: 1:[address] Scan of the Abdomen and Pelvis Without Contrast Location Code M12 History: ABD PAIN T echnique: Axial and reconstructed coronal scans were performed on a helic al scanner pre oral and IV contrast. Study is limited secondary to lack of oral and IV contrast. One or more of the following dose reduction techniques were used: Automated exposure control, adjustment of the mA a nd/or kV according to patient size, and/or utilization of iterative recons truction technique. Findings: Spleen is absen t. The spleen was present on 08/30/2013. Gallbladder, pancreas and liver are within normal limits. There are no peripancreatic inflammatory marx es. Adrenal glands are unremarkable. There is a too small to iban acterize hypodensity in the left kidney lower pole. There is no nep hrolithiasis in either kidney. Bladder is unremarkable. There is no pelv ic free fluid. The appendix, small bowel and colon are unremarkabl e. There is no bowel obstruction or inflammatory changes. G roundglass densities are noted in the lung bases consistent with pneumonit is. IMPRESSION: No acute findings in the abdom en or pelvis. Bilateral lower lobe pneumonitis. Splenectomy. PAGE 1 Signed Report (CONTINUED) Name: MINE ROUSE [facility] : 1975 Age/S: 43 / M [address] ro[address] Unit #: [id number] Loc: [place] [address] Phys: Raquel De La Rosa SPLIT LEATHER MOSSER Acct: [id number] Dis Date: Status: REG ER PHONE #: [phone] Exam Date: 05/24/2019 011 FAX #: [phone] Reason: ABD PAIN EXAMS: CPT CODE: [id number] ABD PELVIS W/O CONT [id number] <Continued > at 0131 Report ed and signed by: Alanna Sprague M.D. CC: Raquel De La Rosa SPLIT LEATHER MOSSER; Fatuma Nash MD Technologist:ANJALI VYAS CT CTDI: DLP: Trnscb Date/Time: 05/24/2019 ( 130) [email or web address] Orig Print D/T: S: 05/24/2019 (134) PAGE 2 Signed Report CBC W/O [id number] 01:09:00* Test Item Value Reference Range Interpretation Comments WHITE BLOOD CELL (test code = WBC) 19.4 K/mm3 4.5-12.5 H RED BLOOD CELL (test code = RBC) 6.14 mill/mm3 4.0-5.8 H HEMOGLOBIN (test code = HGB) 16.9 gram/dL 13.0-17.5 N HEMATOCRIT (test code = HCT) 48.7 % 42.0-52.0 N MEAN CELL VOLUME (test code = MCV) 79.3 fL 80-98 L MEAN CELL HGB (test code = MCH) 27.5 picogram 27.0-33.0 N MEAN CELL HGB CONCETRATION (test code = MCHC) 34.7 gram/dL 33.0-36. 0 N RED CELL DISTRIBUTION WIDTH (test code = RDW) 19.8 % 11.6-16. 2 H PLATELET COUNT (test code = PLT) 587 K/mm3 150-450 H MEAN PLATELET VOLUME (test code = MPV) 9.5 fL 6.7-11.0 N CBC W/O [id number] 01:08:00* Test Item Value Reference Range Interpretation Comments WHITE BLOOD CELL (test code = WBC) K/mm3 4.5-12.5 RED BLOOD CELL (test code = RBC) mill/mm3 4.0-5.8 HEMOGLOBIN (test code = HGB) 16.9 gram/dL 13.0-17.5 N HEMATOCRIT (test code = HCT) 48.7 % 42.0-52.0 N MEAN CELL VOLUME (test code = MCV) fL 80-98 MEAN CELL HGB (test code = MCH) picogram 27.0-33.0 MEAN CELL HGB CONCETRATION (test code = MCHC) gram/dL 33.0-36. 0 RED CELL DISTRIBUTION WIDTH (test code = RDW) % 11.6-16. 2 PLATELET COUNT (test code = PLT) K/mm3 150-450 MEAN PLATELET VOLUME (test code = MPV) fL 6.7-11.0 URINALYSIS [id number] 01:00:00* Test Item Value Reference Range Interpretation Comments UA COLOR (test code = COLU) YELLOW YELLOW UA APPEARANCE (test code = APPU) Cloudy CLEAR A UA GLUCOSE DIPSTICK (test code = DGLUU) NEGATIVE mg/dL NEGATIVE UA BILIRUBIN DIPSTICK (test code = BILU) NEGATIVE mg/dL NEGATIVE UA KETONE DIPSTICK (test code = KETU) NEGATIVE mg/dL NEGATIVE UA SPECIFIC GRAVITY (test code = SGU) 1.017 1.001-1.035 UA BLOOD DIPSTICK (test code = JOSE F) Negative mg/dL NEGATIVE UA PH DIPSTICK (test code = CUCA) 7.5 5.0-8.0 UA PROTEIN DIPSTICK (test code = PROU) NEGATIVE mg/dL NEGATIVE UA UROBILINIOGEN DIPSTICK (test code = URO) Normal mg/dL NEGATIVE UA NITRITE DIPSTICK (test code = LUIGI) NEGATIVE NEGATIVE UA LEUKOCYTE ESTERASE W REFLEX (test code = LEUUR) NEGATIVE Jorge/uL NEGATIVE UA WBC (test code = WBCU) 0-5 per HPF 0-5 UA RBC (test code = RBCU) 0-2 #/HPF 0-5 UA EPITHELIAL CELLS (test code = EPIU) None seen per HPF FEW UA BACTERIA (test code = BACU) FEW #/HPF NONE A UA AMORPHOUS SEDIMENT (test code = AMORU) FEW #/LPF Urine Source? Clean CatchURINALYSIS [id number] 00:51:00* Test Item Value Reference Range Interpretation Comments UA COLOR (test code = COLU) YELLOW YELLOW UA APPEARANCE (test code = APPU) Cloudy CLEAR A UA GLUCOSE DIPSTICK (test code = DGLUU) NEGATIVE mg/dL NEGATIVE UA BILIRUBIN DIPSTICK (test code = BILU) NEGATIVE mg/dL NEGATIVE UA KETONE DIPSTICK (test code = KETU) NEGATIVE mg/dL NEGATIVE UA SPECIFIC GRAVITY (test code = SGU) 1.017 1.001-1.035 UA BLOOD DIPSTICK (test code = JOSE F) Negative mg/dL NEGATIVE UA PH DIPSTICK (test code = CUCA) 7.5 5.0-8.0 UA PROTEIN DIPSTICK (test code = PROU) NEGATIVE mg/dL NEGATIVE UA UROBILINIOGEN DIPSTICK (test code = URO) Normal mg/dL NEGATIVE UA NITRITE DIPSTICK (test code = LUIGI) NEGATIVE NEGATIVE UA LEUKOCYTE ESTERASE W REFLEX (test code = LEUUR) NEGATIVE Jorge/uL NEGATIVE UA WBC (test code = WBCU) per HPF 0-5 UA RBC (test code = RBCU) per HPF 0-5 UA EPITHELIAL CELLS (test code = EPIU) per HPF Few UA BACTERIA (test code = BACU) per HPF NONE Urine Source? Clean CatchBASIC METABOLIC [id number] 00:47:00* Test Item Value Reference Range Interpretation Comments SODIUM (test code = NA) 138 mmol/L 136-145 N POTASSIUM (test code = K) 3.8 mmol/L 3.5-5.1 N CHLORIDE (test code = CL) 103.0 mmol/L 98-107 N CARBON DIOXIDE (test code = CO2) 29.0 mmol/L 21-32 N ANION GAP (test code = GAP) 9.8 10-20 L GLUCOSE (test code = GLU) 77 mg/dL 74-106 N BLOOD UREA NITROGEN (test code = BUN) 11 mg/dL 7-18 N GLOMERULAR FILTRATION RATE (test code = GFR) 56 mL/min >=60 Estimated GFR by using Modified MDRD formula.Chronic kidney disease is defined as either kidney damageor GFR <60 mL/min/1.73 m2 for >3 months. CREATININE (test code = CREAT) 1.40 mg/dL 0.7-1.3 H BUN/CREATININE RATIO (test code = BUN/CREA) 8.0 10-20 L CALCIUM (test code = CA) 9.1 mg/dL 8.5-10.1 N HEPATIC FUNCTION [id number] 00:47:00* Test Item Value Reference Range Interpretation Comments TOTAL PROTEIN (test code = PROT) 7.0 gram/dL 6.4-8.2 N ALBUMIN (test code = ALB) 3.7 g/dL 3.4-5.0 N GLOBULIN (test code = GLOB) 3.3 gram/dL 2.7-4.2 N ALBUMIN/GLOBULIN RATIO (test code = A/G) 1.1 0.75-1.50 N BILIRUBIN TOTAL (test code = BILT) 0.50 mg/dL 0.0-1.0 N BILIRUBIN DIRECT (test code = BILD) 0.12 mg/dL 0.0-0.20 N SGOT/AST (test code = AST) 32 IUnit/L 15-37 N SGPT/ALT (test code = ALT) 55 IUnit/L 12-78 N ALKALINE PHOSPHATASE TOTAL (test code = ALKP) 52 IUnit/L 45-117 N Note change in reference range due to change in reagent. [id number] 00:47:00* Test Item Value Reference Range Interpretation Comments LIPASE (test code = LIP) 193 U/L 73.0-393.0 N [id number] 00:47:00* Test Item Value Reference Range Interpretation Comments TROPONIN-I (test code = TROPI) <0.015 ng/mL 0-0.045 N BASIC METABOLIC [id number] 00:36:00* Test Item Value Reference Range Interpretation Comments SODIUM (test code = NA) 138 mmol/L 136-145 N POTASSIUM (test code = K) 3.8 mmol/L 3.5-5.1 N CHLORIDE (test code = CL) 103.0 mmol/L 98-107 N CARBON DIOXIDE (test code = CO2) mmol/L 21-32 ANION GAP (test code = GAP) 10-20 GLUCOSE (test code = GLU) mg/dL 74-106 BLOOD UREA NITROGEN (test code = BUN) mg/dL 7-18 GLOMERULAR FILTRATION RATE (test code = GFR) mL/min >=60 CREATININE (test code = CREAT) mg/dL 0.7-1.3 BUN/CREATININE RATIO (test code = BUN/CREA) 10-20 CALCIUM (test code = CA) mg/dL 8.5-10.1 HEPATIC FUNCTION [id number] 00:36:00* Test Item Value Reference Range Interpretation Comments TOTAL PROTEIN (test code = PROT) gram/dL 6.4-8.2 ALBUMIN (test code = ALB) g/dL 3.4-5.0 GLOBULIN (test code = GLOB) gram/dL 2.7-4.2 ALBUMIN/GLOBULIN RATIO (test code = A/G) 0.75-1.50 BILIRUBIN TOTAL (test code = BILT) mg/dL 0.0-1.0 BILIRUBIN DIRECT (test code = BILD) mg/dL 0.0-0.20 SGOT/AST (test code = AST) IUnit/L 15-37 SGPT/ALT (test code = ALT) IUnit/L 12-78 ALKALINE PHOSPHATASE TOTAL (test code = ALKP) IUnit/L 45-117 [id number] 00:36:00* Test Item Value Reference Range Interpretation Comments LIPASE (test code = LIP) U/L 73.0-393.0 [id number] 00:36:00* Test Item Value Reference Range Interpretation Comments TROPONIN-I (test code = TROPI) ng/mL 0-0.045
[2020-02-02] MEDS ORDERED: SODIUM CHLORIDE 0.9% 1000ML 1,000 ML IV STA (13:14)
[2020-02-02] MEDS ORDERED: DIATRIZOATE MEGL/DIATRIZOA SOD 30 ML BTL PO ONE (13:21)
[2020-02-02] MEDS ORDERED: PANTOPRAZOLE 40 MG 10ML VIAL IV NR (13:30)
[2020-02-02] MEDS ORDERED: ONDANSETRON HCL INJ 2MG/ML 2ML 2 MG/ML VIAL IV NR (13:30)
[2020-02-02] MEDS ORDERED: PIPER-TAZ 3.375 GM 50 ML IV NR (13:30)
[2020-02-02] MEDS ORDERED: MORPHINE SULFATE INJ 4 MG/ML INJ 1ML IV NR (13:30)
--- NOTE | 2020-02-02 13:33 | Emergency Department Note ---
History of Present Illnes History of Present Illness Chief Complaint: Abdominal Complaints History of Present Illness This is a 44 year old male .HERE FOR LEFT SIDED UPPER QUAD PAIN FOR THE LAST 6 DAYS, ED VISITS X 2, HAS HAD N/V/D AND CANNOT KEEP ANYTHING DOWN. c/o lower and left side abd pain x 6 days seen at [facility] x 2 p/t today pain x 6 days Historian: Patient Arrival Mode: Car Onset (how long ago): day(s) (6 days) Timing of current episode: constant Progression: worsening Relieving factors: none Exacerbating factors: none Treatments prior to arrival: none (SHUKRI CACERES NP) Past Medical/Family History Physician Review I have reviewed the patient's past medical and family history. Any updates have been documented here. 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 (SHUKRI CACERES NP) Social History Smoking Cessation: Current every day smoker Alcohol Use: Social Any Illegal Drug Use: No TB Exposure/Symptoms: No (SHUKRI CACERES NP) Family History Family history of heart diseas: No (SHUKRI CACERES NP) Other Any Pre-Existing Lines (PICC,: No (SHUKRI CACERES NP) Review of Systems Review of Systems Constitutional: no symptoms, as per HPI, chills, diaphoresis, fever, malaise, weakness, other EENTM: no symptoms, as per HPI, eye pain, blurred vision, tearing, double vision, ear pain, ear discharge, nose pain, nose congestion, throat pain, throat swelling, mouth pain, mouth swelling, other Cardiovascular: no symptoms, as per HPI, chest pain, edema, palpitations, syncope, other Respiratory: no symptoms, as per HPI, change in phlegm color, chest congestion, cough, hemoptysis, excessive phlegm production, pain on inspiration, pain with cough, dyspnea, dyspnea on exertion, snoring, stridor, wheezing, other Gastrointestinal: abdominal pain, diarrhea, nausea, vomiting Genitourinary: no symptoms, as per HPI, discharge, dysuria, frequency, hematuria, pain, other Musculoskeletal: no symptoms, as per HPI, back pain, gout, joint pain, joint swelling, muscle pain, muscle stiffness, neck pain, other Neurological: no symptoms, as per HPI, headache, numbness, paresthesia, pre- existing deficit, seizure, tingling, tremors, weakness, other Psychological: no symptoms, as per HPI, anxiety, depressed, emotional problems, other Endocrine: no symptoms, as per HPI, excessive sweating, flushing, intolerance to cold, intolerance to heat, increased hunger, increased thirst, increased urination, unexplained weight gain, unexplained weight loss, other Hematological/Lymphatic: no symptoms, as per HPI, anemia, blood clots, easy bleeding, easy bruising, swollen glands, other Review of other systems All other systems reviewed and negative. (SHUKRI CACERES NP) Physical Exam Related Data Allergies: Coded Allergies: iodine (Verified Allergy, Severe, 02/02/20) Triage Vital Signs Vital Signs Date Time Temp Pulse Resp B/P (MAP) Pulse Ox O2 Delivery O2 Flow Rate FiO2 02/02/20 13:12 98.0 95 18 140/94 97 Vital signs reviewed: Yes (SHUKRI CACERES NP) Physical Exam CONSTITUTIONAL Constitutional: well-developed, well-nourished HENT HENT: normocephalic, atraumatic, oropharynx clear/moist, nose normal EYES Eyes: conjunctivae normal, EOM normal NECK Neck: ROM normal PULMONARY Pulmonary: effort normal, breath sounds normal CARDIOVASCULAR Cardiovascular: regular rhythm, heart sounds normal, capillary refill normal, normal rate GASTROINTESTINAL Abdominal: bowel sounds normal, tender, guarding, rebound GENITOURINARY Genitourinary: exam deferred SKIN Skin: warm, dry MUSCULOSKELETAL Musculoskeletal: ROM normal NEUROLOGICAL Neurological: alert, oriented x 3, no gross motor or sensory deficits PSYCHOLOGICAL Psychological: mood/affect normal, judgement normal (SHUKRI CACERES NP) Results Laboratory Laboratory Laboratory Tests Test 02/02/20 13:38 White Blood Count 11.35 x10e3/uL (4.8-10.8) Red Blood Count 6.36 x10e6/uL (4.3-5.7) Hemoglobin 17.1 g/dL (14.0-18.0) Hematocrit 50.0 % (38.2-49.6) Mean Corpuscular Volume 78.6 fL (81-99) Mean Corpuscular Hemoglobin 26.9 pg (28-32) Mean Corpuscular Hemoglobin Concent 34.2 g/dL (31-35) Red Cell Distribution Width 22.7 % (11.7-14.4) Platelet Count 573 x10e3/uL (140-360) Neutrophils (%) (Auto) 44.8 % (38.7-80.0) Lymphocytes (%) (Auto) 38.6 % (18.0-39.1) Monocytes (%) (Auto) 13.3 % (4.4-11.3) Eosinophils (%) (Auto) 2.0 % (0.0-6.0) Basophils (%) (Auto) 0.9 % (0.0-1.0) Neutrophils # (Auto) 5.1 (2.1-6.9) Lymphocytes # (Auto) 4.4 (1.0-3.2) Monocytes # (Auto) 1.5 (0.2-0.8) Eosinophils # (Auto) 0.2 (0.0-0.4) Basophils # (Auto) 0.1 (0.0-0.1) Absolute Immature Granulocyte (auto 0.05 x10e3/uL (0-0.1) Urine Color Yellow (YELLOW) Urine Clarity Clear (CLEAR) Urine pH 8.5 (5 - 7) Urine Specific [place] 1.020 (1.010-1.025) Urine Protein Negative (NEGATIVE) Urine Glucose (UA) Negative (NEGATIVE) Urine Ketones Negative (NEGATIVE) Urine Blood Trace (NEGATIVE) Urine Nitrite Negative (NEGATIVE) Urine Bilirubin Negative (NEGATIVE) Urine Urobilinogen 0.2 mg/dL (0.2 - 1) Urine Leukocyte Esterase Negative (NEGATIVE) Urine RBC 6-10 /HPF (0-5) Urine WBC 6-10 /HPF (0-5) Urine Epithelial Cells Few /LPF (NONE) Urine Bacteria Few /HPF (NONE) Sodium Level 136 mmol/L (136-145) Potassium Level 4.4 mmol/L (3.5-5.1) Chloride Level 104 mmol/L (98-107) Carbon Dioxide Level 23 mmol/L (22-29) Anion Gap 13.4 mmol/L (8-16) Blood Urea Nitrogen 7 mg/dL (7-26) Creatinine 1.31 mg/dL (0.72-1.25) Estimat Glomerular Filtration Rate 60 ML/MIN (60-) BUN/Creatinine Ratio 5 (6-25) Glucose Level 108 mg/dL (74-118) Lactic Acid Level 1.5 mmol/L (0.5-2.0) Calcium Level 10.0 mg/dL (8.4-10.2) Total Bilirubin 0.9 mg/dL (0.2-1.2) Aspartate Amino Transf (AST/SGOT) 40 IU/L (5-34) Alanine Aminotransferase (ALT/SGPT) 57 IU/L (0-55) Alkaline Phosphatase 53 IU/L (40-150) Troponin I < 0.001 ng/mL (0-0.300) Total Protein 7.0 g/dL (6.5-8.1) Albumin 3.6 g/dL (3.5-5.0) Globulin 3.4 g/dL (2.3-3.5) Albumin/Globulin Ratio 1.1 (0.8-2.0) Amylase Level 75 U/L (25-125) Lipase 63 U/L (8-78) Lab results reviewed: Yes (SHUKRI CACERES NP) Imaging Imaging results reviewed: Yes Impressions Procedure: [id number] CT/CT ABDOMEN/PELVIS WO Exam Date: 02/02/20 Exam Time: 1450 REPORT STATUS: Signed EXAM: CT Abdomen and Pelvis WITHOUT contrast INDICATION: Nausea, abdominal pain. COMPARISON: None. TECHNIQUE: Abdomen and pelvis were scanned utilizing a multidetector helical scanner from the lung base to the pubic symphysis without administration of IV contrast. Absence of intravenous contrast decreases sensitivity for detection of focal lesions and vascular pathology. Coronal and sagittal reformations were obtained. Stone protocol is performed. IV CONTRAST: None. ORAL CONTRAST: Gastrografin RADIATION DOSE: Total DLP: 470.9 mGy*cm Estimated effective dose: (DLP x 0.015 x size factor) mSv COMPLICATIONS: None FINDINGS: LINES and TUBES: None. LOWER THORAX: There are mild patchy opacities within the bilateral lower lobes. HEPATOBILIARY: No focal hepatic lesions. No biliary ductal dilation. GALLBLADDER: No radio-opaque stones or sludge. No wall thickening. 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 PANCREAS: No focal masses or ductal dilatation. ADRENALS: No adrenal nodules KIDNEYS/URETERS: No hydronephrosis. No cystic or solid mass lesions. No stones. GI TRACT: No evidence of bowel obstruction. There is wall thickening within the duodenum and jejunal loops. PELVIC ORGANS/BLADDER: Unremarkable. LYMPH NODES: No lymphadenopathy. VESSELS: Unremarkable. PERITONEUM / RETROPERITONEUM: No free air or fluid. BONES: Unremarkable. SOFT TISSUES: Unremarkable. IMPRESSION: Findings compatible with enteritis, which may be infectious or inflammatory. Normal appendix. No evidence of nephrolithiasis. Mild patchy opacities in the the bilateral lower lobes likely atelectasis, although infection can have a similar appearance in the appropriate clinical setting. Signed by: Dr. Chavo Can MD on 02/02/2020 4:13 PM Dictated By: CHAVO CAN MD 12 Transcribed By: ABIDA on 02/02/201612 (SHUKRI CACERES NP) Procedures 12 Lead ECG Interpretation Remarketing Manager: Interpreted by ED physician (Dr Tapia) Date: February 02, 2020 Time: 13:59 Rhythm: sinus rhythm Rate: normal BPM: 83 QRS axis: normal ST segments normal: Yes T waves normal: Yes Other findings: no other findings Clinical Impression: normal ECG (SHUKRI CACERES NP) Critical Care Time Subsequent provider I assumed direction of critical care for this patient from another provider of my specialty. (SHUKRI CACERES NP) Assessment & Plan Assessment & Plan Problems: (1) Abdominal pain Assessment & Plan 44ym presented to ed c/o left side abd pain and lower abd pain x 6 days w/ n/v/d multi episodes - seen at [place] x [address] abd 2 days ago reports may have poss partial sbo - c/o burping and foul smell passage of gas - noted bowel sound all four quads - ttp left side and lower abd pain on exam - Dr Tapia in eval pt status - lab ct abd ordered - pt medicated w/ zosyn zofran morphine and ns bolus Dr Tapia in re eval pt status - discussed lab ct results plan of care [place] [employer] risk score 290 - last rx 06/08/19 1. follow up with your doctor / Gi doctor in 1-2 days without fail 2. bland diet / increase oral fluids 3. return to ed as needed 4 rx t#3 cipro flagyl protonix zofran ([facility]UKRI CACERES [facility] ADMISSIONS CLERK) Depart Disposition: HOME, SELF-CARE Last Vital Signs Date Time Temp Pulse Resp B/P (MAP) Pulse Ox O2 Delivery O2 Flow Rate FiO2 02/02/20 13:12 98.0 95 18 140/94 97 (SHUKRI CACERES [facility]) Medications in the ED Diatrizoate Meglum/ Diatrizoate Sod 30 ml STK-MED ONCE PO ; Start 02/02/20 at 13:21; Stop 02/02/20 at 13:16; Status DC Sodium Chloride 1,000 ml @ 0 mls/hr Q0M STAT IV ; Start 02/02/20 at 13:14; Stop 02/02/20 at 13:15 Pantoprazole Sodium 40 mg ONCE IV ; Start 02/02/20 at 13:30; Stop 02/02/20 at 14:59 Piperacillin Sod/ Tazobactam Sod 50 ml @ 50 mls/hr ONCE IV ; Start 02/02/20 at 13:30; Stop 02/02/20 at 14:59 Morphine Sulfate 4 mg ONCE IV ; Start 02/02/20 at 13:30; Stop 02/02/20 at 14:59 Ondansetron HCl 4 mg ONCE IV ; Start 02/02/20 at 13:30; Stop 02/02/20 at 14:59 ([facility]) Attestation Provider Attestation Pt seen and examined with mechanical oxidizer, pt presents for ABD PAIN X 6 DAYS Exam as follows - CV- RRR, L- CTA BILAT, ABD- SOFT, MOD TENDER ERIKA/LUQ/LLQ WITHOUT R/G, NABS I agree with mechanical oxidizer assessment and disposition. (DARIEN TAPIA MD) [facility] NP February 02, 2020 13:33 DARIEN TAPIA MD February 02, 2020 16:54
[2020-02-02 14:07] LABS: BASOPHILS # (AUTO) 0.1 (0.0-0.1); BASOPHILS % 0.9 % (0.0-1.0); EOSINOPHILS # (AUTO) 0.2 (0.0-0.4); HEMOGLOBIN 17.1 g/dL (14.0-18.0); LYMPHOCYTES # (AUTO) 4.4 (1.0-3.2); LYMPHOCYTES % 38.6 % (18.0-39.1); MEAN CORPUSCULAR HEMOGLOBIN 26.9 pg (28-32); MEAN CORPUSCULAR HGB CONC 34.2 g/dL (31-35); MEAN CORPUSCULAR VOLUME 78.6 fL (81-99); MONOCYTES # (AUTO) 1.5 (0.2-0.8); MONOCYTES % 13.3 % (4.4-11.3); NEUTROPHILS # (AUTO) 5.1 (2.1-6.9); NEUTROPHILS % 44.8 % (38.7-80.0); PLATELET COUNT 573 x10e3/uL (140-360); RED BLOOD COUNT 6.36 x10e6/uL (4.3-5.7); RED CELL DISTRIBUTION WIDTH 22.7 % (11.7-14.4)
[2020-02-02 14:15] LABS: CLARITY,URINE CLEAR (CLEAR); COLOR,URINE YELLOW (YELLOW)
[2020-02-02 14:16] LABS: BILIRUBIN,URINE NEGATIVE (NEGATIVE); KETONES,URINE NEGATIVE (NEGATIVE); LEUKOCYTE ESTERASE ,URINE NEGATIVE (NEGATIVE); NITRITE,URINE NEGATIVE (NEGATIVE); PROTEIN,URINE DIPSTICK NEGATIVE (NEGATIVE); URINE UROBILINOGEN 0.2 mg/dL (0.2 - 1)
[2020-02-02 14:23] LABS: ALBUMIN 3.6 g/dL (3.5-5.0); ALBUMIN/GLOBULIN RATIO 1.1 (0.8-2.0); ANION GAP 13.4 mmol/L (8-16); CREATININE, SERUM 1.31 mg/dL (0.72-1.25); POTASSIUM 4.4 mmol/L (3.5-5.1)
[2020-02-02 14:25] LABS: BACTERIA,URINE FEW /HPF; EPITHELIAL CELLS,URINE FEW /LPF
[2020-02-02] MEDS ORDERED: MORPHINE SULFATE INJ 4 MG/ML INJ 1ML IV ONE (15:15)
[2020-02-02] MEDS ORDERED: DICYCLOMINE HCL 20 MG/2 ML VIAL IM ONE (15:15)
--- NOTE | 2020-02-02 16:17 | Diagnostic Imaging Report ---
EXAM: CT Abdomen and Pelvis WITHOUT contrast INDICATION: Nausea, abdominal pain. COMPARISON: None. TECHNIQUE: Abdomen and pelvis were scanned utilizing a multidetector helical scanner from the lung base to the pubic symphysis without administration of IV contrast. Absence of intravenous contrast decreases sensitivity for detection of focal lesions and vascular pathology. Coronal and sagittal reformations were obtained. Stone protocol is performed. IV CONTRAST: None. ORAL CONTRAST: Gastrografin RADIATION DOSE: Total DLP: 470.9 mGy*cm Estimated effective dose: (DLP x 0.015 x size factor) mSv COMPLICATIONS: None FINDINGS: LINES and TUBES: None. LOWER THORAX: There are mild patchy opacities within the bilateral lower lobes. HEPATOBILIARY: No focal hepatic lesions. No biliary ductal dilation. GALLBLADDER: No radio-opaque stones or sludge. No wall thickening. 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 PANCREAS: No focal masses or ductal dilatation. ADRENALS: No adrenal nodules KIDNEYS/URETERS: No hydronephrosis. No cystic or solid mass lesions. No stones. GI TRACT: No evidence of bowel obstruction. There is wall thickening within the duodenum and jejunal loops. PELVIC ORGANS/BLADDER: Unremarkable. LYMPH NODES: No lymphadenopathy. VESSELS: Unremarkable. PERITONEUM / RETROPERITONEUM: No free air or fluid. BONES: Unremarkable. SOFT TISSUES: Unremarkable. IMPRESSION: Findings compatible with enteritis, which may be infectious or inflammatory. Normal appendix. No evidence of nephrolithiasis. Mild patchy opacities in the the bilateral lower lobes likely atelectasis, although infection can have a similar appearance in the appropriate clinical setting. Signed by: Dr. Purvi Peralta MD on 02/02/2020 4:13 PM
[2020-02-02 18:18] LABS: AMPHETAMINES SCREEN,URINE NEGATIVE (NEGATIVE); BENZODIAZEPINES SCREEN,URINE NEGATIVE (NEGATIVE); PHENCYCLIDINE SCREEN,URINE NEGATIVE (NEGATIVE)
== END 2020-02-02 17:03 | disposition home or self-care (01) ==
LOC: ER 13:03
DX: R10.12 Left upper quadrant pain (principal); R10.32 Left lower quadrant pain; R11.2 Nausea with vomiting, unspecified; R19.7 Diarrhea, unspecified; D75.1 Secondary polycythemia; K21.9 Gastro-esophageal reflux disease without esophagitis; F17.210 Nicotine dependence, cigarettes, uncomplicated
CPT/HCPCS: 36415; 74176; 80053; 80307; 81001; 82150; 83605; 83690; 84484; 85025; 87040; 87086; 93005; 99284; J0500; J2270; J2405; J2543; J7030

== ENCOUNTER 2020-02-24 02:00 | Inpatient (IN) | payer SELFPAY ==
[~2020-02-24] VITALS: Ht 172.7 cm; Wt 88.5 kg
--- OUTSIDE RECORDS SUMMARY | 2020-02-24 02:02 | XMS REPORT | Clinical Summary ---
Author Author [facility] Address Unknown Phone Unavailable Care Team Providers Care Pediatric Physician Assistant Name Role Phone PCP Unavailable Allergies Not [...] Not on file Results Not on fileafter 02/23/2019 Insurance Payer Benefit Subscriber ID Type Phone Address Plan / Group [employer]UE [employer] BCBS PPO xxxxxxxxxxxx PPO [address] [place] [address] CHOICE
--- OUTSIDE RECORDS SUMMARY | 2020-02-24 02:03 | XMS REPORT | Continuity of Care Document ---
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 03/23/2018 [facility] LEFT SIDE PNEUMONIA, DEHYDRATION, POLYCT Active 12/07/2017 [facility] HYPOTENSION, INTRAPERITONEAL HEMATOMA Active 12/07/2017 [facility] Pneumonia, unspecified organism 03/23/2018 [facility] Other shock 03/23/2018 [facility] Acute respiratory failure with hypoxia 03/23/2018 [facility] Hemoperitoneum 03/23/2018 [facility] Acute kidney failure, unspecified 03/23/2018 [facility] Acute posthemorrhagic anemia 03/23/2018 [facility] Coagulation defect, unspecified 03/23/2018 [facility] Hyperkalemia 03/23/2018 [facility] Fluid overload, unspecified 03/23/2018 [facility] Nicotine dependence, cigarettes, uncomplicated 03/23/2018 [facility] PNEUMONIA, UNSPECIFIED ORGANISM Active [facility] DEHYDRATION Active [facility] HYPOTENSION, UNSPECIFIED Active [facility] HEMOPERITONEUM Active [facility] CUTANEOUS ABSCESS OF LIMB, UNSPECIFIED Active [facility] Medications Medication Details Route Status Patient Instructions Ordering Provider Order Date Source Acetaminophen 500 MG Oral Tablet 1,000 mg = 2 tab, PO, Q6H, X 14 day, # 112 tab, 0 Refill(s) Active 06/14/2019 [facility] nter Docusate Sodium 50 MG / sennosides, ASSISTED 8.6 MG Oral Tablet 1 tab, PO, BID, X 14 day, # 28 tab, 0 Refill(s) Active 06/14/2019 [facility] nter gabapentin 300 MG Oral Capsule 300 mg = 1 cap, PO, Q8H, # 42 cap, 0 Refill(s) Active 06/14/2019 [facility] methocarbamol 750 mg oral tablet 750 mg = 1 tab, PO, TID, X 7 day, # 21 tab, 0 Refill(s) Active 06/14/2019 [facility] nt pantoprazole 40 mg oral enteric coated tablet 40 mg = 1 tab, PO, Before Breakfast, # 14 tab, 0 Refill(s) Active 06/14/2019 [facility] nter Sulfamethoxazole 800 MG / Trimethoprim 1 60 MG Oral Tablet [Bactrim] 1 tab, PO, [id number], X 6 day, # 12 tab, 0 Refill(s) Active 06/14/2019 [facility] tramadol hydrochloride 50 MG Oral Tablet 100 mg = 2 tab, PO, Q6H, PRN Pain Score 4-6, X 3 day, # 24 tab, 0 Refill(s) Active 06/14/2019 [facility] Sulfamethoxazole 800 MG / Trimethoprim 1 60 MG Oral Tablet [Bactrim] Notes: One DS tablet = trimethoprim 160m g + sulfamethoxazole 800 mg Dose based on trimethoprim component On empty stomach with a glass of water. (Same As: Bactrim DS, Septra DS) No Longer Active 06/13/2019 [facility] nter vancomycin + Sodium Chloride 0.9% IV 250 mL 2001 mg: infuse over 2.5 hours For adult patients only: Round to nearest 250 mg per Medical Staff approval MEDICATION WASTE Product Size: 1000 mg Product Wasted: ___ mg No Longer Active 06/12/2019 [facility] nter Vancomycin 1.25 gm, Route: IVP B, Drug form: INJ, ABXQ8H, Dosing Weight 90.909, kg, Priority: Within 4 hours, Start date: 06/12/19 15:00:00 CDT, Duration: 1 day, Stop date: 06/13/19 7:00:00 CDT, ABX Indication: Skin/Soft Tissue Infection Inactive 06/12/2019 [facility] nter Sulfamethoxazole 800 MG / Trimethoprim 1 60 MG Oral Tablet [Bactrim] Notes: One DS tablet = trimethoprim 160m g + sulfamethoxazole 800 mg Dose based on trimethoprim component On empty stomach with a glass of water. (Same As: Bactrim DS, Septra DS) Inactive 06/12/2019 [facility] nter Robaxin Notes: (Same as:Robaxi n) No Longer Active 06/12/2019 [facility] Tetrahydrocannabinol Notes: (S lynn as: Marinol) No Longer Active 06/12/2019 [facility] Dilaudid 0.5 mg, Route: IVP, O NCE, Dosing Weight 90.909, kg, Priority: STAT, Start date: 06/11/19 14:40:00 CDT, Stop date: 06/11/19 14:40:00 CDT Inactive 06/11/2019 [facility] gabapentin 300 MG Oral Capsule Notes: (Same as: Neurontin) No Longer Active 06/11/2019 [facility] Acetaminophen Notes: Infuse ov er 15 minutes Do not exceed 4gm/day of acetaminophen MEDICATION WASTE Product Size: 1000 mg Product Wasted: ___ mg Inactive 06/11/2019 [facility] nt Morphine Notes: (Same as:MORPh ine Sulfate) Inactive 06/11/2019 [facility] hydromorphone (ANES) + sodium chloride (ANES) 9 mL Route: IV, Drug form: INJ, ONCE, Stop date: 06/10/19 18:30:00 CDT Inactive 06/10/2019 [facility] lidocaine (ANES) Route: IV, Dr ug form: INJ, ONCE, Stop date: 06/10/19 18:24:00 CDT Inactive 06/10/2019 [facility] nter propofol (ANES) Route: IV, Brian g form: INJ, ONCE, Stop date: 06/10/19 18:24:00 CDT Inactive 06/10/2019 [facility] nter rocuronium (ANES) Route: IV, D rug form: INJ, ONCE, Stop date: 06/10/19 18:24:00 CDT Inactive 06/10/2019 [facility] nter succinylcholine (ANES) Route: IV, Drug form: INJ, ONCE, Stop date: 06/10/19 18:24:00 CDT Inactive 06/10/2019 [facility] nter fentaNYL (ANES) Route: IV, Brian g form: INJ, ONCE, Stop date: 06/10/19 18:24:00 CDT Inactive 06/10/2019 [facility] nter Hydralazine 10 mg, Route: IVP, Q20Min, Dosing Weight 90.909, kg, PRN Elevated BP, Start date: 06/10/19 18:16:00 CDT, Duration: 2 doses or times, Stop date: Limited # of times Inactive 06/10/2019 [facility] nter Labetalol 10 mg, Route: IVP, Q 5Min, Dosing Weight 90.909, kg, PRN Elevated BP, Start date: 06/10/19 18:16:00 CDT, Duration: 5 doses or times, Stop date: Limited # of times Inactive 06/10/2019 [facility] nter Oxycodone Hydrochloride 5 MG Oral Tablet 5 mg, Route: PO, Drug form: TAB, Q4H, Dosing Weight 90.909, kg, PRN Pain Score 4-6, Start date: 06/10/19 18:16:00 CDT, Duration: 30 day, Stop date: 07/10/19 18:15:00 CDT Inactive 06/10/2019 [facility] Hydromorphone 0.5 mg, Route: I [employer]LE [employer]ER, Q5Min, Dosing Weight 90.909, kg, PRN Pain Score 7-10, Start date: 06/10/19 18:16:00 CDT, Duration: 4 doses or times, Stop date: Limited # of times Inactive 06/10/2019 [facility] nter Flumazenil 0.2 mg, Route: IVP, PRN, Dosing Weight 90.909, kg, PRN Benzodiazepine Reversal, Initial dose, Start date: 06/10/19 18:16:00 CDT, Duration: 30 day, Stop date: 07/10/19 18:15:00 CDT Inactive 06/10/2019 [facility] Naloxone 0.4 mg, Route: IVP, Q 2MIN, Dosing Weight 90.909, kg, PRN Narcotic Reversal, Start date: 06/10/19 18:16:00 CDT, Duration: 8 doses or times, Stop date: Limited # of times Inactive 06/10/2019 [facility] nter Ondansetron 4 mg, Route: IVP, ONCE, Dosing Weight 90.909, kg, PRN Nausea & Vomiting, Start date: 06/10/19 18:16:00 CDT Inactive 06/10/2019 [facility] midazolam (ANES) Route: IV, Dr fuentes form: SOLN, ONCE, Stop date: 06/10/19 17:44:00 CDT Inactive 06/10/2019 [facility] nter Lactated Ringers Injection IV (ANES) 1000 mL Route: IV, Total Volume: 1,000, Start date: 06/10/19 17:12:00 CDT, Stop date: 06/10/19 18:12:00 CDT Inactive 06/10/2019 [facility] remove patch Notes: Remove pat ch 12 hours after application each day. No Longe r Active 06/10/2019 [facility] nter Acetaminophen 300 MG / Codeine Phosphate 30 MG Oral Tablet 1 tab, PO, Q6H, PRN pain, # 20 tab, 0 Refill(s) No Longer Active 06/10/2019 [facility] vancomycin 2001 mg: infuse ov er 2.5 hours For adult patients only: Round to nearest 250 mg per Medical Staff approval MEDICATION WASTE Product Size: 1000 mg Product Wasted: ___ mg Inactive 06/10/2019 [facility] Ondansetron 2 MG/ML Injectable Solution [Zofran] Notes: (Same as: Zofran) MEDICATION WASTE Product Size: 4 mg Product Wasted: ___ mg Inactive 06/10/2019 [facility] Nicotine Notes: (Same as: Mercedes gates) "Remove old patch before application of new patch" WASTE: F/P - P Waste Black; E - P Waste Black No Longer Active 06/10/2019 [facility] remove patch Notes: Remove old patch before application of new patch. WASTE: F/P - P Waste Black; E - P Waste Black No Longer Active 06/10/2019 [facility] Docusate Sodium 50 MG / sennosides, ASSISTED 8.6 MG Oral Tablet Notes: (Same as Senokot-S) Equiv. to Isis-Colace. No Longer Active 06/10/2019 [facility] meropenem Notes: (Same as: Chanda rem) . MEDICATION WASTE Product Size: 1000 mg Product Wasted: ___ mg No Longer Active 06/10/2019 [facility] pantoprazole Notes: Tablet china uld not be chewed or crushed. (Same as: Protonix) N o Longer Active 06/10/2019 [facility] nter Tylenol Notes: Max acetaminoph en 4000 mg/day (4 gm/day). (Same as: Tylenol Extra Strength) No Longer Active 06/10/2019 [facility] nter Tramadol 50 mg, Route: PO, Brian g form: TAB, Q6H, Dosing Weight 90.909, kg, Start date: 06/10/19 6:00:00 CDT, Duration: 30 day, Stop date: 07/10/19 0:00:00 CDT Inactive 06/10/2019 [facility] nter Lidocaine Hydrochloride 0.05 MG/MG Trans dermal Patch [Lidoderm] Notes: Apply only once for up to 12 hour s in a 24-hour period (12 hours on and 12 hours off). (Same as: Lidoderm) "Remove old patch before application of new patch" No Longer Active 06/10/2019 [facility] Vancomycin 2001 mg: infuse ov er 2.5 hours Inactive 06/10/2019 [facility] heparin Notes: porcine heparin No Longer Active 06/10/2019 [facility] heparin sodium, porcine 2500 UNT/ML Injectable Solutio n Notes: porcine heparin Inactiv e 06/10/2019 [facility] Tramadol Notes: Not to exceed 400mg/day. (Same As: Ultram) No Longer Active 06/10/2019 [facility] Vancomycin 800 mg, Route: IV, ONCE, Dosing Weight 90.909, kg, Start date: 06/10/19 1:20:00 CDT, Stop date: 06/10/19 1:20:00 CDT, ABX Indication: Skin/Soft Tissue Infection Inactive 06/10/2019 [facility] nter Isolyte S PH 7.4 1,000 mL Note s: (Same as: Isolyte S PH 7.4) No Longer Active 06/10/2019 [facility] meropenem Notes: Same as Kelvin valencia MEDICATION WASTE Product Size: 500 mg Product Wasted: _0__ mg Inactive 06/10/2019 [facility] Morphine Notes: (Same as:MORPh ine Sulfate) Inactive 06/10/2019 [facility] ferrous sulfate 325 MG Oral Tablet 325 mg = 1 tab, PO, TID, # 90 tab, 0 Refill(s) Active 12/15/2017 [facility] chlorproMAZINE 25 mg oral tablet 25 mg = 1 tab, PO, BID, # 10 tab, 0 Refill(s) Active 12/15/2017 [facility] ferrous sulfate Notes: Give wi th food. iron elemental [id number] as ferrous sulfate Dose=___mg elemental iron Inactive 12/15/2017 [facility] meningococcal group A polysaccharide / m eningococcal group C polysaccharide / MENINGOCOCCAL POLYSACCHARIDE VACCINE GROUP W-135 / MENINGOCOCCAL POLYSACCHARIDE VACCINE GROUP Y Notes: (Same as: [place] A/C/Y/W-135) (meningococcal polysaccharide vaccine 0.5ml/dose INJ) WASTE: F/P - Black; E - Municipal Trash Bin No Longer Active 12/14/2017 [facility] Chlorpromazine Notes: (Same As : Thorazine) No Longer Active 12/13/2017 [facility] Haemophilus influenzae type b strain 148 2, capsular polysaccharide inactivated tetanus toxoid conjugate vaccine 0.068 MG/ML Injectable Solution [ActHIB] Notes: (Same as: Act Hib) Haemophilus I nfluenzae Conjugate Vaccine (tetanus toxid conjugate). No Longer Active 12/13/2017 [facility] Chlorpromazine Notes: (Same As : Thorazine) Inactive 12/13/2017 [facility] Protonix 20 mg, Route: PO, Brian g form: ECTAB, Before Dinner, Dosing Weight 84.5, kg, Start date: 12/12/17 16:30:00 CDT, Duration: 30 day, Stop date: 01/10/18 16:30:00 CDT Inactive 12/12/2017 [facility] Miralax Notes: Dissolve in 8 o z of water or juice. (Same as: Miralax) Inactive 12/12/2017 [facility] Baclofen Notes: (Same As: Delvin esal) No Longer Active 12/11/2017 [facility] Zosyn Notes: (Same as: Zosyn) Dosing based on Piperacillin component MEDICATION WASTE Product Size: 3375 mg Product Wasted: ___ mg No Longer Active 12/11/2017 [facility] Lasix Notes: (Same as: Lasix) MEDICATION WASTE Product Size: 40 mg Product Wasted: ___ mg No Longer Active 12/11/2017 [facility] Tramadol Notes: Not to exceed 400mg/day. (Same As: Ultram) No Longer Active 12/10/2017 [facility] Methadone Notes: (Same as: Dol ophine) No Longer Active 12/10/2017 [facility] Acetaminophen Notes: Max aceta minophen 4000 mg/day (4 gm/day). (Same as: Tylenol Extra Strength) Inactive 12/10/2017 [facility] multivitamin Notes: (Same as:Frank de la garza) WASTE: F/P - Black; E - Municipal Trash Bin Take with food. No Longer Active 12/10/2017 [facility] Thiamine 100 mg, Route: PO, Da sheron, Dosing Weight 84.5, kg, Start date: 12/10/17 9:00:00 CDT, Duration: 5 day, Stop date: 12/14/17 9:00:00 CDT No Longer Active 12/10/2017 [facility] Folic Acid Notes: (Same as: Fo lvite) No Longer Active 12/10/2017 [facility] Furosemide 40 mg, Route: IVP, Drug form: INJ, Daily, Dosing Weight 84.5, kg, Start date: 12/10/17 9:00:00 CDT, Duration: 30 day, Stop date: 01/08/18 9:00:00 CDT No Longer Active 12/10/2017 [facility] Lasix 40 mg, Route: IVP, Drug form: INJ, ONCE, Dosing Weight 84.5, kg, Start date: 12/10/17 8:15:00 CDT, Stop date: 12/10/17 8:15:00 CDT Inactive 12/10/2017 [facility] Acetaminophen Notes: Max aceta minophen 4000 mg/day (4 gm/day). (Same as: Tylenol Extra Strength) No Longer Active 12/09/2017 [facility] Furosemide 40 mg, Route: IVP, Drug form: INJ, ONCE, Dosing Weight 84.5, kg, Start date: 12/09/17 17:47:00 CDT, Stop date: 12/09/17 17:47:00 CDT Inactive 12/09/2017 [facility] Furosemide Notes: (Same as: Alexandra mcdowell) MEDICATION WASTE Product Size: 40 mg Product Wasted: ___ mg Inactive 12/09/2017 [facility] Lorazepam Notes: (Same as: Ati van) No Longer Active 12/09/2017 [facility] Vitamin B1 Notes: (Same As: Vi tamin B1) Inactive 12/09/2017 [facility] Protonix Notes: Tablet should not be chewed or crushed. (Same as: Protonix) No Longer Active 12/09/2017 [facility] Lasix Notes: (Same as: Lasix) MEDICATION WASTE Product Size: 40 mg Product Wasted: ___ mg Inactive 12/09/2017 [facility] Acetaminophen 325 MG / Hydrocodone Blanca trate 5 MG Oral Tablet [[place] 5/325] Notes: (Same as: [place] 325/5) Do not ex ceed 4gm/day of acetaminophen. No Longer Activ e 12/09/2017 [facility] Robitussin-AC oral syrup Notes : (Same As: Robitussin AC) No Longer Active 12/09/2017 [facility] sennosides, ASSISTED Notes: (Same a s: Senokot) No Longer Active 12/09/2017 [facility] Docusate Notes: (Same as: Cola ce) (Do Not Crush) No Longer Active 12/09/2017 [facility] Protonix Notes: Tablet should not be chewed or crushed. (Same as: Protonix) Inactive 12/09/2017 [facility] NS (Bolus) IV 500 mL, 500 ml/h r, Infuse Over: 1 hr, Route: IV, 500, Drug form: INJ, ONCE, Priority: STAT, Dosing Weight 84.5 kg, Start date: 12/08/17 17:04:00 CDT, Stop date: 12/08/17 17:04:00 CDT Inactive 12/08/2017 [facility] Zofran Notes: (Same as: Zofran ) MEDICATION WASTE Product Size: 4 mg Product Wasted: ___ mg No Longer Active 12/08/2017 [facility] diphtheria toxoid vaccine, inactivated / Haemophilus capsular oligosaccharide 0.5 ml, Route: IM, Drug Form: SOLN, Dosi ng Weight 84.5, kg, ONCALL, Within 24 hours, Start date: 12/08/17 14:00:00 CDT, Duration: 1 day, Stop date: 12/09/17 13:59:00 CDT Inactive 12/08/2017 [facility] meningococcal group A polysaccharide / m eningococcal group C polysaccharide / MENINGOCOCCAL POLYSACCHARIDE VACCINE GROUP W-135 / MENINGOCOCCAL POLYSACCHARIDE VACCINE GROUP Y 0.5 ml, Route: SUB-Q, Dosing Weight 84.5, kg, ONCALL, Within 24 hours, Start date: 12/08/17 14:00:00 CDT Inactive 12/08/2017 [facility] pneumococcal capsular polysaccharide typ e 1 vaccine / pneumococcal capsular polysaccharide type 10A vaccine / pneumococcal capsular polysaccharide type 11A vaccine / pneumococcal capsular polysaccharide type 12F vaccine / pneumococcal capsular polysacchar Notes: (Same as: Pneumovax 23) Refrigerate Inactive 12/08/2017 [facility] haemophilus b conjugate (PRP-T) vaccine Notes: (Same as: Act Hib) Haemophilus Influenzae Conjugate Vaccine (tetanus toxid conjugate). No Longer Active 12/08/2017 [facility] acetaminophen Notes: Infuse ov er 15 minutes Do not exceed 4gm/day of acetaminophen MEDICATION WASTE Product Size: 1000 mg Product Wasted: ___ mg No Longer Active 12/08/2017 [facility] pneumococcal 13-valent vaccine intramuscular suspensio n Notes: Shake well prior to use (Same as: Prevnar 13) No Longer Active 12/08/2017 [facility] Ipratropium [place] 0.2 MG/ML Inhalant Solution Notes: SEE RT DOCUMENTATION (Same as:Atrovent) No Longer Active 12/08/2017 [facility] meningococcal group A polysaccharide / m eningococcal group C polysaccharide / MENINGOCOCCAL POLYSACCHARIDE VACCINE GROUP W-135 / MENINGOCOCCAL POLYSACCHARIDE VACCINE GROUP Y Notes: (Same as: Menomune A/C/Y/W-135) (meningococcal polysaccharide vaccine 0.5ml/dose INJ) WASTE: F/P - Black; E - Municipal Trash Bin No Longer Active 12/08/2017 [facility] Haemophilus capsular oligosaccharide 0.0 15 MG/ML / Neisseria meningitidis 0.25 MG/ML Injectable Suspension 0.5 ml, Route: IM, Drug Form: SUSP, Dosing Weight 84.5, kg, ONCALL, Start date: 12/08/17 12:00:00 CDT, Duration: 30 day, Stop date: 01/07/18 11:59:00 CDT Inactive 12/08/2017 [facility] Haemophilus capsular oligosaccharide 0.0 15 MG/ML / Neisseria meningitidis 0.25 MG/ML Injectable Suspension 0.5 ml, Route: IM, Drug Form: SUSP, Dosing Weight 84.5, kg, ONCE, Start date: 12/08/17 11:47:00 CDT, Stop date: 12/08/17 11:47:00 CDT Inactive 12/08/2017 [facility] Tramadol Notes: Not to exceed 400mg/day. (Same As: Ultram) No Longer Active 12/08/2017 [facility] Ketorolac 4 days MEDICA TION WASTE Product Size: 30 mg Product Wasted: ___ mg Inactive 12/08/2017 [facility] celecoxib Notes: NSAID. Please check indication. Not for seizure. (Same As: CeleBREX) N o Longer Active 12/08/2017 [facility] pregabalin Notes: (Same as: Ly richy) No Longer Active 12/08/2017 [facility] Acetaminophen Notes: Infuse ov er 15 minutes Do not exceed 4gm/day of acetaminophen MEDICATION WASTE Product Size: 1000 mg Product Wasted: ___ mg Inactive 12/08/2017 [facility] Methadone Notes: (Same as: Dol ophine) No Longer Active 12/08/2017 [facility] metoprolol (ANES) Route: IV, D rug form: INJ, ONCE, Stop date: 12/08/17 10:08:00 CDT Inactive 12/08/2017 [facility] glycopyrrolate (ANES) Route: I V, Drug form: INJ, ONCE, Stop date: 12/08/17 10:03:00 CDT Inactive 12/08/2017 [facility] neostigmine (ANES) Route: IV, Drug form: INJ, ONCE, Stop date: 12/08/17 10:03:00 CDT Inactive 12/08/2017 [facility] morphine Sulfate (ANES) Route: IV, Drug form: INJ, ONCE, Stop date: 12/08/17 10:03:00 CDT Inactive 12/08/2017 [facility] calcium chloride (ANES) Route: IV, Drug form: INJ, ONCE, Stop date: 12/08/17 9:58:00 CDT Inactive 12/08/2017 [facility] ondansetron (ANES) Route: IV, Drug form: INJ, ONCE, Stop date: 12/08/17 9:53:00 CDT Inactive 12/08/2017 [facility] propofol (ANES) Route: IV, Brian g form: INJ, ONCE, Stop date: 12/08/17 9:43:00 CDT Inactive 12/08/2017 [facility] fentaNYL (ANES) Route: IV, Brian g form: INJ, ONCE, Stop date: 12/08/17 9:43:00 CDT Inactive 12/08/2017 [facility] rocuronium (ANES) Route: IV, D rug form: INJ, ONCE, Stop date: 12/08/17 9:43:00 CDT Inactive 12/08/2017 [facility] Sodium Chloride 0.9% IV (ANES) 500 mL Route: IV, Total Volume: 500, Start date: 12/08/17 9:38:00 CDT, Stop date: 12/08/17 10:38:00 CDT Inactive 12/08/2017 [facility] phenylephrine (ANES) Route: IV , Drug form: INJ, ONCE, Stop date: 12/08/17 9:23:00 CDT Inactive 12/08/2017 [facility] ceFAZolin (ANES) Route: IV, Dr ug form: INJ, ONCE, Stop date: 12/08/17 9:13:00 CDT Inactive 12/08/2017 [facility] potassium chloride (ANES) 40 mEq Route: IV, Drug form: INJ, Start date: 12/08/17 9:11:00 CDT, Stop date: 12/08/17 10:11:00 CDT Inactive 12/08/2017 [facility] Prednisone Notes: Take with fo od. Inactive 12/08/2017 [facility] Budesonide Notes: (Same As: Pu lmicort) No Longer Active 12/08/2017 [facility] Saline Flush 0.9% Notes: (Same as: BD Posiflush) No Longer Active 12/08/2017 [facility] Isolyte S PH 7.4 (ANES) 1000 mL Route: IV, Total Volume: 1,000, Start date: 12/08/17 8:31:00 CDT, Stop date: 12/08/17 9:31:00 CDT Inactive 12/08/2017 [facility] normal saline 0.9% IV 1,000 mL 1,000 mL, Rate: 100 ml/hr, Infuse over: 10 hr, Route: IV, Dosing Weight 84.5 kg, Total Volume: 1,000, Start date: 12/08/17 8:22:00 CDT, Duration: 30 day, Stop date: 01/07/18 8:21:00 CDT, 2.04, m2 No Longe r Active 12/08/2017 [facility] Sodium Chloride 0.9% IV 1,000 mL + M.V.I .-12 10 mL Daily + folic acid IV 1 mg Daily 1,000 mL, Rate: 100 ml/hr, Infuse over: 10.1 hr, Route: IV, Dosing Weight 84.5 kg, Total Volume: 1,010.2, Start date: 12/08/17 8:21:00 CDT, Stop date: 12/11/17 8:20:00 CDT, 2.04, m2 No Longer Active 12/08/2017 [facility] Hydrocortisone Notes: (Same as : Solu-CORTEF) Inactive 12/08/2017 [facility] Benadryl Notes: (Same as: [place] dryl) Inactive 12/08/2017 [facility] Lasix 20 mg, Route: IVP, Drug form: INJ, ONCE, Dosing Weight 84.5, kg, Priority: NOW, Start date: 12/08/17 6:17:00 CDT, Stop date: 12/08/17 6:17:00 CDT Inactive 12/08/2017 [facility] Tranexamic Acid Notes: (Same A s: Cyklokapron) Inactive 12/08/2017 [facility] Diphenhydramine Notes: (Same a s: Benadryl) Inactive 12/08/2017 [facility] Esomeprazole 20 MG Enteric Coated Capsule [Nexium] 20 mg = 1 cap, PO, Daily, # 30 cap, 0 Refill(s) Active 12/08/2017 [facility] Levofloxacin Notes: Do not giv e w/antacids, dairy pdt & minerals Take 1 hr before or 2 hr after dairy products No Longer Active 12/08/2017 [facility] Albuterol 0.83 MG/ML Inhalant Solution Notes: SEE RT DOCUMENTATION (Same as: Proventil) Inactive 12/08/2017 [facility] Dextrose 50% Syringe 25 gm, 50 mL, Route: IVP, Drug Form: INJ, Dosing Weight 84.5, kg, ONCE, Start date: 12/08/17 0:14:00 CDT, Stop date: 12/08/17 0:14:00 CDT Inactive 12/08/2017 [facility] Insulin regular 60 units) W ASTE: F/P - Black; E - Municipal Trash Bin Stable for 28 days at room temperature Expires in days from Date Inactive 12/08/2017 [facility] normal saline 0.9% IV 1,000 mL 1,000 mL, Rate: 150 ml/hr, Infuse over: 6.7 hr, Route: IV, Dosing Weight 84.5 kg, Total Volume: 1,000, Start date: 12/08/17 0:03:00 CDT, Duration: 30 day, Stop date: 01/07/18 0:02:00 CDT, 2.04, m2 Inactive 12/08/2017 [facility] Calcium Gluconate Notes: WASTE : F/P - Sink; E - Municipal Trash Bin Inactive 12/08/2017 [facility] Morphine Notes: (Same as:MORPh ine Sulfate) No Longer Active 12/08/2017 [facility] Sodium Chloride 0.9% (titrate) 250 mL 250 mL, Rate: To prime line and flush remaining blood products., Route: IV, Total Volume: 250, Start Date: 12/07/17 22:36:00 CDT, Duration: 30 day, Stop date: 01/06/18 22:35:00 CDT, Replace Every: 24 hr No Longer Active 12/08/2017 [facility] Acetaminophen Notes: Do not ex ceed 4 gm/day. (Same as: Tylenol) No Longer Active 12/08/2017 [facility] Nystatin 100 UNT/MG Topical Powder Notes: (Same as:Mycostatin, Nilstat) For external use only. No Longer Active 12/08/2017 [facility] Ondansetron Notes: (Same as: Karol arce) MEDICATION WASTE Product Size: 4 mg Product Wasted: ___ mg No Longer Active 12/08/2017 [facility] Calcium Carbonate 500 MG Chewable Tablet Notes: (Same As: Victor Hugo) Calcium Carbonate 500 mg = 200 mg elemental calcium Dose = mg calcium carbonate ( mg elemental calcium) No Longer Active 12/08/2017 [facility] potassium phosphate-sodium phosphate 250 mg-280 mg-160 mg oral powder for reconstitution Notes: (Same as: Phos-NaK) Each 1.5 gm pkt has 250mg phosphorous. Mix w/2.5oz water and stir. No Longer Active 12/08/2017 [facility] Calcium Gluconate Notes: WASTE : F/P - Sink; E - Municipal Trash Bin No Longer Active 12/08/2017 [facility] Magnesium Oxide Notes: (Same a s: Mag-Ox 400) Magnesium oxide [id number] elemental magnesium Dose=____mg magnesium oxide (___mg elemental magnesium) No Longer Active 12/08/2017 [facility] Potassium Chloride Notes: Infu se at a rate of 10 mEq/hr. (Same as: KCL) No Longer Active 12/08/2017 [facility] potassium phosphate Notes: (Sa me as: K Phosphate.) 1 mMol phoshate has 1.47 mEq potassium Infuse over 4 hours No Longer Active 12/08/2017 [facility] sodium phosphate 30 mmol, 10 m L, Route: IVPB, PRN, kg, PRN Abnormal Lab Result, Start date: 12/07/17 22:35:00 CDT, Duration: 30 day, Stop date: 01/06/18 22:34:00 CDT, FOR ICU USE ONLY No Longer Active 12/08/2017 [facility] Magnesium Sulfate Notes: WASTE : F/P - Sink; E - Municipal Trash Bin No Longer Active 12/08/2017 [facility] Saline Flush 0.9% Notes: (Same as: BD Posiflush) No Longer Active 12/08/2017 [facility] Ipratropium Notes: SEE RT DOCU MENTATION (Same as:Atrovent) No Longer Active 12/08/2017 [facility] Albuterol 0.83 MG/ML Inhalant Solution Notes: SEE RT DOCUMENTATION (Same as: Proventil) No Longer Active 12/08/2017 [facility] Allergies, Adverse Reactions, Alerts Substance Category Reaction Severity Reaction type Status Date Reported Comments Source Keflex Assertion Drug allergy Active [facility] iodine Assertion Drug allergy Active [facility] Immunizations Immunization Date Given Site Status Last Updated Comments Source influenza virus vaccine, inactivated 06/14/2019 Left Deltoid completed Derrek [facility] haemophilus b conjugate (PRP-T) vaccine 12/15/2017 Right deltoid completed Ananth [facility] meningococcal conjugate vaccine 12/15/2017 [facility] pneumococcal 13-valent vaccine 12/15/2017 Left deltoid completed [facility] Results Order Name Results Value Reference Range Date Interpretation Comments Source ELECTROLYTES AGAP 12.6 10.0 - 20.0 06/14/2019 [facility] ELECTROLYTES Glucose Lvl 127 70 - 99 06/14/2019 [facility] ELECTROLYTES BUN 11 7 - 22 06/14/2019 [facility] ELECTROLYTES Creatinine Lvl 1.3 1 0.50 - 1.40 06/14/2019 [facility] ELECTROLYTES Sodium Lvl 138 135 - 145 06/14/2019 [facility] ELECTROLYTES Potassium Lvl 4.6 3.5 - 5.1 06/14/2019 [facility] ELECTROLYTES Chloride Lvl 107 95 - 109 06/14/2019 [facility] ELECTROLYTES CO2 23 24 - 32 06/14/2019 [facility] ELECTROLYTES Calcium Lvl 8.9 8.5 - 10.5 06/14/2019 [facility] ELECTROLYTES eGFR 67 06/14/2019 Result Comment: [...] should be multiplied by the estimated BMI. [facility] HEMATOLOGY WBC 16.9 3.7 - 10.4 06/14/2019 [facility] HEMATOLOGY RBC 5.38 4.70 - 6.10 06/14/2019 [facility] HEMATOLOGY Hgb 14.2 14.0 - 18.0 06/14/2019 [facility] HEMATOLOGY Hct 43.7 42.0 - 54.0 06/14/2019 [facility] HEMATOLOGY MCV 81.3 80.0 - 94.0 06/14/2019 [facility] HEMATOLOGY MCH 26.4 27.0 - 31.0 06/14/2019 [facility] HEMATOLOGY MCHC 32.5 32.0 - 36.0 06/14/2019 [facility] HEMATOLOGY RDW 17.1 11.5 - 14.5 06/14/2019 [facility] HEMATOLOGY Platelet 689 133 - 450 06/14/2019 [facility] HEMATOLOGY MPV 8.0 7.4 - 10.4 06/14/2019 [facility] HEMATOLOGY Segs 56.0 45.0 - 75.0 06/14/2019 [facility] HEMATOLOGY Lymphocytes 30.0 20.0 - 40.0 06/14/2019 [facility] HEMATOLOGY Monocytes 9.3 2.0 - 12.0 06/14/2019 [facility] HEMATOLOGY Eosinophils 3.9 0.0 - 4.0 06/14/2019 [facility] HEMATOLOGY Basophils 0.8 0.0 - 1.0 06/14/2019 [facility] HEMATOLOGY Neutrophils # 9.4 1.5 - 8.1 06/14/2019 [facility] HEMATOLOGY Lymphocytes # 5.0 1.0 - 5.5 06/14/2019 [facility] HEMATOLOGY Monocytes # 1.6 0.0 - 0.8 06/14/2019 [facility] HEMATOLOGY Eosinophils # 0.7 0.0 - 0.5 06/14/2019 [facility] HEMATOLOGY Basophils # 0.1 0.0 - 0.2 06/14/2019 [facility] CHEM PANEL Glucose Lvl 135 70 - 99 06/13/2019 [facility] CHEM PANEL BUN 9 7 - 22 06/13/2019 [facility] CHEM PANEL Creatinine Lvl 1.18 0.50 - 1.40 06/13/2019 [facility] CHEM PANEL Sodium Lvl 138 135 - 145 06/13/2019 [facility] CHEM PANEL Potassium Lvl 4.3 3.5 - 5.1 06/13/2019 [facility] CHEM PANEL Chloride Lvl 107 95 - 109 06/13/2019 [facility] CHEM PANEL CO2 24 24 - 32 06/13/2019 [facility] CHEM PANEL Calcium Lvl 8.8 8.5 - 10.5 06/13/2019 [facility] CHEM PANEL AGAP 11.3 10.0 - 20.0 06/13/2019 [facility] CHEM PANEL eGFR 76 06/13/2019 Result [...] should be multiplied by the estimated BMI. [facility] CHEM PANEL Glucose Lvl 135 70 - 99 06/13/2019 [facility] CHEM PANEL BUN 9 7 - 22 06/13/2019 [facility] CHEM PANEL Creatinine Lvl 1.18 0.50 - 1.40 06/13/2019 [facility] CHEM PANEL Sodium Lvl 138 135 - 145 06/13/2019 [facility] CHEM PANEL Potassium Lvl 4.3 3.5 - 5.1 06/13/2019 [facility] CHEM PANEL Chloride Lvl 107 95 - 109 06/13/2019 [facility] CHEM PANEL CO2 24 24 - 32 06/13/2019 [facility] CHEM PANEL Calcium Lvl 8.8 8.5 - 10.5 06/13/2019 [facility] CHEM PANEL Total Protein 6.3 6.4 - 8.4 06/13/2019 [facility] CHEM PANEL Albumin Lvl 2.6 3.5 - 5.0 06/13/2019 [facility] CHEM PANEL ALT 56 0 - 65 06/13/2019 [facility] CHEM PANEL AST 33 0 - 37 06/13/2019 [facility] CHEM PANEL Alk Phos 57 39 - 136 06/13/2019 [facility] CHEM PANEL Bili Total 0.2 0.2 - 1.3 06/13/2019 [facility] CHEM PANEL AGAP 11.3 10.0 - 20.0 06/13/2019 [facility] CHEM PANEL B/C Ratio 8 6 - 25 06/13/2019 [facility] CHEM PANEL Globulin 3.7 2.7 - 4.2 06/13/2019 [facility] CHEM PANEL A/G Ratio 0.7 0.7 - 1.6 06/13/2019 [facility] CHEM PANEL eGFR 76 06/13/2019 Result [...] should be multiplied by the estimated BMI. [facility] HEMATOLOGY WBC 18.8 3.7 - 10.4 06/13/2019 [facility] HEMATOLOGY RBC 4.85 4.70 - 6.10 06/13/2019 [facility] HEMATOLOGY Hgb 13.1 14.0 - 18.0 06/13/2019 [facility] HEMATOLOGY Hct 39.2 42.0 - 54.0 06/13/2019 [facility] HEMATOLOGY MCV 80.8 80.0 - 94.0 06/13/2019 [facility] HEMATOLOGY MCH 26.9 27.0 - 31.0 06/13/2019 [facility] HEMATOLOGY MCHC 33.3 32.0 - 36.0 06/13/2019 [facility] HEMATOLOGY RDW 16.7 11.5 - 14.5 06/13/2019 [facility] HEMATOLOGY Platelet 640 133 - 450 06/13/2019 [facility] HEMATOLOGY MPV 7.5 7.4 - 10.4 06/13/2019 [facility] TOXICOLOGY Vanco Tr 7.4 06/12/2019 [facility] TOXICOLOGY Vanco Tr TND 1500 06/12/2019 [facility] TOXICOLOGY Vanco Tr 0.9 06/11/2019 [facility] TOXICOLOGY Vanco Tr TND 1330 06/11/2019 [facility] HEMATOLOGY WBC 22.5 3.7 - 10.4 06/11/2019 [facility] HEMATOLOGY RBC 4.92 4.70 - 6.10 06/11/2019 [facility] HEMATOLOGY Hgb 13.0 14.0 - 18.0 06/11/2019 [facility] HEMATOLOGY Hct 40.2 42.0 - 54.0 06/11/2019 [facility] HEMATOLOGY MCV 81.5 80.0 - 94.0 06/11/2019 [facility] HEMATOLOGY MCH 26.4 27.0 - 31.0 06/11/2019 [facility] HEMATOLOGY MCHC 32.4 32.0 - 36.0 06/11/2019 [facility] HEMATOLOGY RDW 16.7 11.5 - 14.5 06/11/2019 [facility] HEMATOLOGY Platelet 598 133 - 450 06/11/2019 [facility] HEMATOLOGY MPV 8.1 7.4 - 10.4 06/11/2019 [facility] IMMUNOLOGY HIV. Negat adrian *NA* (06/11/19 4:44 AM) Negative 06/11/2019 [facility] IMMUNOLOGY Hep Bs Ag Negat adrian *NA* (06/11/19 4:44 AM) Negative 06/11/2019 [facility] IMMUNOLOGY Hep B Core IgM Negat adrian *NA* (06/11/19 4:44 AM) Negative 06/11/2019 [facility] IMMUNOLOGY Hep C Ab Negat adrian *NA* (06/11/19 4:44 AM) Negative 06/11/2019 [facility] IMMUNOLOGY Hep A IgM Negat adrian *NA* (06/11/19 4:44 AM) Negative 06/11/2019 [facility] DRUG SCREEN U Amph Scr Nega tive *NA* (06/11/19 3:00 AM) Negative 06/11/2019 [facility] DRUG SCREEN U Yenifer Scr Nega tive *NA* (06/11/19 3:00 AM) Negative 06/11/2019 [facility] DRUG SCREEN U Benzodiaz Scr Posi tive *ABN* (06/11/19 3:00 AM) Negative 06/11/2019 [facility] DRUG SCREEN U Cocaine Scr Nega tive *NA* (06/11/19 3:00 AM) Negative 06/11/2019 [facility] DRUG SCREEN U Cannab Scr Nega tive *NA* (06/11/19 3:00 AM) Negative 06/11/2019 [facility] DRUG SCREEN U Opiate Scr Posi tive *ABN* (06/11/19 3:00 AM) Negative 06/11/2019 [facility] DRUG SCREEN U Phencyclidine Scr Nega tive *NA* (06/11/19 3:00 AM) Negative 06/11/2019 [facility] DRUG SCREEN UDS Note See Note (06/11/19 3:00 AM) 06/11/2019 [facility] DRUG SCREEN U Methadone Scr Nega tive *NA* (06/11/19 3:00 AM) Negative 06/11/2019 [facility] DRUG SCREEN U Propoxyph Scr Nega tive *NA* (06/11/19 3:00 AM) Negative 06/11/2019 [facility] PENICILLIN:SUSC:PT:ISOLATE:ORDQN:ZANE Gram Stain Report Moderate WBC's Rare Gram Positive Cocci In Clusters Critical Results Called To: Ms. 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 06/10/2019 [facility] PENICILLIN:SUSC:PT:ISOLATE:ORDQN:ZANE Staphylococcus aureus Staphylococcus aureus 06/10/2019 [facility] Culture: Anaerobic Many Anaerobic Gram Positive Cocci , Identified As: Peptoniphilus indolicus 06/10/2019 [facility] CHEM PANEL Magnesium Lvl 1.8 1.8 - 2.4 06/10/2019 [facility] CHEM PANEL Phosphorus 1.9 2.5 - 4.5 06/10/2019 [facility] CHEM PANEL Lactic Acid Lvl 0.9 0.5 - 2.2 06/10/2019 [facility] HEMATOLOGY RBC Morph Ping l (06/09/19 11:38 PM) Normal 06/10/2019 [facility] HEMATOLOGY Plt Morph Ping l (06/09/19 11:38 PM) Normal 06/10/2019 [facility] HEMATOLOGY Segs 75.6 45.0 - 75.0 06/10/2019 [facility] HEMATOLOGY Lymphocytes 13.6 20.0 - 40.0 06/10/2019 [facility] HEMATOLOGY Monocytes 9.1 2.0 - 12.0 06/10/2019 [facility] HEMATOLOGY Eosinophils 1.4 0.0 - 4.0 06/10/2019 [facility] HEMATOLOGY Basophils 0.3 0.0 - 1.0 06/10/2019 [facility] HEMATOLOGY Neutrophils # 18.7 1.5 - 8.1 06/10/2019 [facility] HEMATOLOGY Lymphocytes # 3.4 1.0 - 5.5 06/10/2019 [facility] HEMATOLOGY Monocytes # 2.2 0.0 - 0.8 06/10/2019 [facility] HEMATOLOGY Eosinophils # 0.3 0.0 - 0.5 06/10/2019 [facility] HEMATOLOGY Basophils # 0.1 0.0 - 0.2 06/10/2019 [facility] BLOOD BANK RESULTS ABO/Rh O POS 06/10/2019 [facility] BLOOD BANK RESULTS Antibody Scrn Negative (06/09/19 11:35 PM) 06/10/2019 [facility] HEMATOLOGY Segs-Bands # 10.1 1.5 - 8.1 12/15/2017 [facility] HEMATOLOGY Lymphocytes 19.9 20.0 - 40.0 12/15/2017 [facility] HEMATOLOGY Segs 54.9 45.0 - 75.0 12/15/2017 [facility] HEMATOLOGY Monocytes 9.8 2.0 - 12.0 12/15/2017 [facility] HEMATOLOGY Eosinophils 15.3 0.0 - 4.0 12/15/2017 [facility] HEMATOLOGY Basophils 0.1 0.0 - 1.0 12/15/2017 [facility] HEMATOLOGY Lymphocytes # 3.7 1.0 - 5.5 12/15/2017 [facility] HEMATOLOGY Monocytes # 1.8 0.0 - 0.8 12/15/2017 [facility] HEMATOLOGY Eosinophils # 2.8 0.0 - 0.5 12/15/2017 [facility] Basophils # 0.0 0.0 - 0.2 12/15/2017 [facility] MPV 8.1 7.4 - 10.4 12/15/2017 [facility] MCH 29.1 27.0 - 31.0 12/15/2017 [facility] MCHC 34.4 32.0 - 36.0 12/15/2017 [facility] RDW 15.8 11.5 - 14.5 12/15/2017 [facility] Platelet 954 133 - 450 12/15/2017 [facility] MCV 84.5 80.0 - 94.0 12/15/2017 [facility] WBC 18.4 3.7 - 10.4 12/15/2017 [facility] Hgb 8.7 14.0 - 18.0 12/15/2017 [facility] RBC 3.00 4.70 - 6.10 12/15/2017 [facility] Hct 25.3 42.0 - 54.0 12/15/2017 [facility] Monocytes 11.6 2.0 - 12.0 12/15/2017 [facility] Eosinophils 15.1 0.0 - 4.0 12/15/2017 [facility] Basophils 0.7 0.0 - 1.0 12/15/2017 [facility] Segs 52.6 45.0 - 75.0 12/15/2017 [facility] Lymphocytes 20.0 20.0 - 40.0 12/15/2017 [facility] CHEM PANEL Glucose Lvl 88 70 - 99 12/14/2017 [facility] CHEM PANEL Chloride Lvl 99 95 - 109 12/14/2017 [facility] CHEM PANEL BUN 16 7 - 22 12/14/2017 [facility] CHEM PANEL Sodium Lvl 135 135 - 145 12/14/2017 [facility] CHEM PANEL Creatinine Lvl 0.90 0.50 - 1.40 12/14/2017 [facility] CHEM PANEL Calcium Lvl 8.8 8.5 - 10.5 12/14/2017 [facility] CHEM PANEL CO2 27 24 - 32 12/14/2017 [facility] CHEM PANEL eGFR 106 12/14/2017 Result Comment: [...] should be multiplied by the estimated BMI. [facility] CHEM PANEL Potassium Lvl 3.7 3.5 - 5.1 12/14/2017 [facility] CHEM PANEL AGAP 12.7 10.0 - 20.0 12/14/2017 [facility] HEMATOLOGY MPV 8.0 7.4 - 10.4 12/14/2017 [facility] Platelet 802 133 - 450 12/14/2017 [facility] RDW 15.4 11.5 - 14.5 12/14/2017 [facility] MCHC 31.2 32.0 - 36.0 12/14/2017 [facility] MCH 27.0 27.0 - 31.0 12/14/2017 [facility] Hct 26.6 42.0 - 54.0 12/14/2017 [facility] MCV 86.6 80.0 - 94.0 12/14/2017 [facility] Hgb 8.3 14.0 - 18.0 12/14/2017 [facility] RBC 3.07 4.70 - 6.10 12/14/2017 [facility] WBC 19.5 3.7 - 10.4 12/14/2017 [facility] Polychrom Moder ate *ABN* (12/14/17 4:28 AM) None Seen 12/14/2017 [facility] Segs 56.0 45.0 - 75.0 12/14/2017 [facility] Bands 1.0 0.0 - 11.0 12/14/2017 [facility] Monocytes # 2.0 0.0 - 0.8 12/14/2017 [facility] Eosinophils # 2.1 0.0 - 0.5 12/14/2017 [facility] Plt Morph Ping l (12/14/17 4:28 AM) 12/14/2017 [facility] Lymphocytes # 4.3 1.0 - 5.5 12/14/2017 [facility] HEMATOLOGY Lymphocytes 21.0 20.0 - 40.0 12/14/2017 [facility] HEMATOLOGY Eosinophils 11.0 0.0 - 4.0 12/14/2017 [facility] HEMATOLOGY Atypical Lymphs 1.0 <=0.0 % 12/14/2017 [facility] HEMATOLOGY Monocytes 10.0 2.0 - 12.0 12/14/2017 [facility] HEMATOLOGY Segs-Bands # 11.1 1.5 - 8.1 12/14/2017 [facility] CHEM PANEL Phosphorus 3.0 2.5 - 4.5 12/13/2017 [facility] CHEM PANEL Magnesium Lvl 2.0 1.8 - 2.4 12/13/2017 [facility] ELECTROLYTES AGAP 11.9 10.0 - 20.0 12/13/2017 [facility] ELECTROLYTES eGFR 84 12/13/2017 Result Comment: The [...] should be multiplied by the estimated BMI. [facility] ELECTROLYTES BUN 18 7 - 22 12/13/2017 [facility] ELECTROLYTES Glucose Lvl 87 70 - 99 12/13/2017 [facility] ELECTROLYTES Potassium Lvl 3.9 3.5 - 5.1 12/13/2017 [facility] ELECTROLYTES Creatinine Lvl 1.1 0 0.50 - 1.40 12/13/2017 [facility] ELECTROLYTES Sodium Lvl 135 135 - 145 12/13/2017 [facility] ELECTROLYTES Chloride Lvl 98 95 - 109 12/13/2017 [facility] ELECTROLYTES Calcium Lvl 8.8 8.5 - 10.5 12/13/2017 [facility] ELECTROLYTES CO2 29 24 - 32 12/13/2017 [facility] HEMATOLOGY INR 1.10 0.85 - 1.17 12/13/2017 [facility] PT 14.2 12.0 - 14.7 12/13/2017 [facility] PTT 35.0 22.9 - 35.8 12/13/2017 [facility] Basophils # 0.1 0.0 - 0.2 12/13/2017 [facility] Eosinophils # 1.5 0.0 - 0.5 12/13/2017 [facility] Lymphocytes # 1.7 1.0 - 5.5 12/13/2017 [facility] Segs-Bands # 11.5 1.5 - 8.1 12/13/2017 [facility] Basophils 0.4 0.0 - 1.0 12/13/2017 [facility] Monocytes # 2.2 0.0 - 0.8 12/13/2017 [facility] MPV 8.0 7.4 - 10.4 12/13/2017 [facility] Platelet 629 133 - 450 12/13/2017 [facility] RDW 15.4 11.5 - 14.5 12/13/2017 [facility] MCHC 33.5 32.0 - 36.0 12/13/2017 [facility] MCH 28.7 27.0 - 31.0 12/13/2017 [facility] RBC 2.99 4.70 - 6.10 12/13/2017 [facility] MCV 85.6 80.0 - 94.0 12/13/2017 [facility] Hgb 8.6 14.0 - 18.0 12/13/2017 [facility] WBC 17.1 3.7 - 10.4 12/13/2017 [facility] Hct 25.6 42.0 - 54.0 12/13/2017 [facility] Bands 1.0 0.0 - 11.0 12/13/2017 [facility] Eosinophils # 2.1 0.0 - 0.5 12/13/2017 [facility] Polychrom Moder ate *ABN* (12/13/17 4:43 AM) None Seen 12/13/2017 [facility] Atypical Lymphs 0.0 <=0.0 % 12/13/2017 [facility] Plt Morph Ping l (12/13/17 4:43 AM) 12/13/2017 [facility] Segs-Bands # 12.0 1.5 - 8.1 12/13/2017 [facility] HEMATOLOGY Monocytes # 1.9 0.0 - 0.8 12/13/2017 [facility] HEMATOLOGY Lymphocytes # 1.2 1.0 - 5.5 12/13/2017 [facility] PARATHYROID PROFILE Ca Ion WB 1.07 1.05 - 1.25 12/13/2017 [facility] PARATHYROID PROFILE Ca Norm WB 1.10 1.05 - 1.25 12/13/2017 [facility] CHEM PANEL Magnesium Lvl 2.0 1.8 - 2.4 12/12/2017 [facility] CHEM PANEL Phosphorus 3.0 2.5 - 4.5 12/12/2017 [facility] ELECTROLYTES AGAP 13.3 10.0 - 20.0 12/12/2017 [facility] ELECTROLYTES eGFR 68 12/12/2017 Result Comment: The [...] should be multiplied by the estimated BMI. [facility] ELECTROLYTES Calcium Lvl 8.9 8.5 - 10.5 12/12/2017 [facility] ELECTROLYTES BUN 19 7 - 22 12/12/2017 [facility] ELECTROLYTES Glucose Lvl 97 70 - 99 12/12/2017 [facility] ELECTROLYTES Potassium Lvl 3.3 3.5 - 5.1 12/12/2017 [facility] ELECTROLYTES CO2 33 24 - 32 12/12/2017 [facility] ELECTROLYTES Sodium Lvl 135 135 - 145 12/12/2017 [facility] ELECTROLYTES Chloride Lvl 92 95 - 109 12/12/2017 [facility] ELECTROLYTES Creatinine Lvl 1.3 0 0.50 - 1.40 12/12/2017 [facility] HEMATOLOGY PTT 40.2 22.9 - 35.8 12/12/2017 [facility] HEMATOLOGY INR 1.26 0.85 - 1.17 12/12/2017 [facility] HEMATOLOGY PT 15.9 12.0 - 14.7 12/12/2017 [facility] HEMATOLOGY Basophils # 0.1 0.0 - 0.2 12/12/2017 [facility] PARATHYROID PROFILE Ca Norm WB 1.10 1.05 - 1.25 12/12/2017 [facility] PARATHYROID PROFILE Ca Ion WB 1.06 1.05 - 1.25 12/12/2017 [facility] HEMATOLOGY NRBC 1 12/11/2017 [facility] Plt Morph Ping l (12/11/17 3:17 AM) 12/11/2017 [facility] HEMATOLOGY RBC Morph Ping l (12/11/17 3:17 AM) 12/11/2017 [facility] HEMATOLOGY Bands 2.0 0.0 - 11.0 12/11/2017 [facility] Atypical Lymphs 0.0 <=0.0 % 12/11/2017 [facility] URINE AND STOOL UA Urobilinogen <=1.0 0.1 - 1.0 12/10/2017 [facility] URINE AND STOOL UA Glucose 150 12/10/2017 [facility] URINE AND STOOL UA Color Ltyellow 12/10/2017 [facility] URINE AND STOOL UA RBC 1 0 - 2 12/10/2017 [facility] URINE AND STOOL UA WBC 1 0 - 5 12/10/2017 [facility] URINE AND STOOL UA Blood Small *ABN* (12/10/17 6:58 PM) Negative 12/10/2017 [facility] URINE AND STOOL UA Ketones Negative mg/dL Negative mg/dL 12/10/2017 [facility] URINE AND STOOL UA Bili Negative *NA* (12/10/17 6:58 PM) Negative 12/10/2017 [facility] URINE AND STOOL UA Sq Epi Occasional /LPF Few /LPF 12/10/2017 [facility] URINE AND STOOL UA Leuk Est Negative (12/10/17 6:58 PM) Negative 12/10/2017 [facility] URINE AND STOOL UA Turbidity Clear (12/10/17 6:58 PM) Clear 12/10/2017 [facility] URINE AND STOOL UA pH 7.0 5.0 - 8.0 12/10/2017 [facility] URINE AND STOOL UA Protein 30 mg/dL Negative mg/dL 12/10/2017 [facility] URINE AND STOOL UA Spec Grav 1.009 <=1.030 12/10/2017 [facility] URINE AND STOOL UA Nitrite Negative (12/10/17 6:58 PM) Negative 12/10/2017 [facility] Gram Stain Report Less Than 25 Sq uamous Epithelial Cells/Lpf Rare WBC's Few Gram Positive Cocci Few Gram Positive Rods Good Quality Specimen 12/10/2017 [facility] Culture: Respiratory w/Gram Stain F ew Yeast Normal Respiratory Judit Isolated 12/10/2017 [facility] CHEM PANEL Procalcitonin Lvl 4.32 0.00 - 0.10 12/10/2017 Result Comment: Critical Result(s) fermin d to JOSÉ AGIULAR at 12/10/2017 14:20 byTMT. Read back OK. [facility] CHEM PANEL Magnesium Lvl 1.5 1.8 - 2.4 12/10/2017 [facility] PARATHYROID PROFILE Ca Norm WB 1.06 1.05 - 1.25 12/10/2017 [facility] PARATHYROID PROFILE Ca Ion WB 1.00 1.05 - 1.25 12/10/2017 [facility] CHEM PANEL Phosphorus 3.3 2.5 - 4.5 12/09/2017 [facility] HEMATOLOGY PTT 30.7 22.9 - 35.8 12/09/2017 [facility] HEMATOLOGY INR 1.20 0.85 - 1.17 12/09/2017 [facility] HEMATOLOGY PT 15.3 12.0 - 14.7 12/09/2017 [facility] BLOOD BANK RESULTS RBC product Product available 3 (12/09/17 3:49 AM) 12/09/2017 Result Comment: 12/09/2017 0 4:01 SAMATHEW
Blood available, notified Crowe.Caitlyn at _12/09/2017 04:01 by SM. [facility] CHEM PANEL Bili Total 0.2 0.2 - 1.3 12/09/2017 [facility] CHEM PANEL Globulin 2.7 2.7 - 4.2 12/09/2017 [facility] CHEM PANEL AST 48 0 - 37 12/09/2017 [facility] CHEM PANEL Alk Phos 32 39 - 136 12/09/2017 [facility] CHEM PANEL A/G Ratio 0.8 0.7 - 1.6 12/09/2017 [facility] CHEM PANEL ALT 27 0 - 65 12/09/2017 [facility] CHEM PANEL Albumin Lvl 2.1 3.5 - 5.0 12/09/2017 [facility] CHEM PANEL Total Protein 4.8 6.4 - 8.4 12/09/2017 [facility] CHEM PANEL B/C Ratio 13 6 - 25 12/09/2017 [facility] CHEM PANEL Lactic Acid Lvl 1.3 0.5 - 2.2 12/08/2017 [facility] CHEM PANEL Procalcitonin Lvl 0.08 0.00 - 0.10 12/08/2017 [facility] HEMATOLOGY Fibrinogen Lvl 327 230 - 510 12/08/2017 [facility] CHEM PANEL AST 39 0 - 37 12/08/2017 [facility] CHEM PANEL Alk Phos 35 39 - 136 12/08/2017 [facility] CHEM PANEL Bili Total 0.5 0.2 - 1.3 12/08/2017 [facility] CHEM PANEL A/G Ratio 0.9 0.7 - 1.6 12/08/2017 [facility] CHEM PANEL Globulin 2.9 2.7 - 4.2 12/08/2017 [facility] CHEM PANEL Albumin Lvl 2.5 3.5 - 5.0 12/08/2017 [facility] CHEM PANEL ALT 27 0 - 65 12/08/2017 [facility] CHEM PANEL B/C Ratio 9 6 - 25 12/08/2017 [facility] CHEM PANEL Total Protein 5.4 6.4 - 8.4 12/08/2017 [facility] CHEM PANEL Lactic Acid Lvl 2.5 0.5 - 2.2 12/08/2017 [facility] CARDIAC ENZYMES Troponin-I <0.02 0.00 - 0.40 12/08/2017 [facility] HEMATOLOGY Fibrinogen Lvl 283 230 - 510 12/08/2017 [facility] BLOOD BANK RESULTS FFP product Product available (12/08/17 9:08 AM) 12/08/2017 [facility] BLOOD BANK RESULTS RBC product Product available (12/08/17 9:03 AM) 12/08/2017 [facility] IMMUNOLOGY EBV VCA IgG 4.8 <=0.8 AI 12/08/2017 [facility] EBV VCA IgM 1.3 <=0.8 AI 12/08/2017 [facility] IMMUNOLOGY HIV Ag/Ab 4th Gen Negat adrian *NA* (12/08/17 8:12 AM) Negative 12/08/2017 [facility] EBV VCA IgM 1.7 <=0.8 AI 12/08/2017 [facility] CHEM PANEL Lactic Acid Lvl 1.5 0.5 - 2.2 12/08/2017 [facility] CHEM PANEL Bili Total 0.5 0.2 - 1.3 12/08/2017 [facility] CHEM PANEL Total Protein 5.0 6.4 - 8.4 12/08/2017 [facility] CHEM PANEL Albumin Lvl 2.4 3.5 - 5.0 12/08/2017 [facility] CHEM PANEL B/C Ratio 13 6 - 25 12/08/2017 [facility] CHEM PANEL Alk Phos 34 39 - 136 12/08/2017 [facility] CHEM PANEL ALT 19 0 - 65 12/08/2017 [facility] CHEM PANEL AST 20 0 - 37 12/08/2017 [facility] CHEM PANEL A/G Ratio 0.9 0.7 - 1.6 12/08/2017 [facility] CHEM PANEL Globulin 2.6 2.7 - 4.2 12/08/2017 [facility] HEMATOLOGY RBC Morph Ping l (12/08/17 6:45 AM) 12/08/2017 [facility] HEMATOLOGY Max Amplitude Rapid 57 52 - 71 12/08/2017 [facility] HEMATOLOGY G-value Rapid 6.6 5.0 - 11.6 12/08/2017 [facility] HEMATOLOGY Split Point Rapid 0.6 12/08/2017 [facility] HEMATOLOGY Estimated % Lysis Rapid 2 .9 0.0 - 7.5 12/08/2017 [facility] HEMATOLOGY R-time Rapid 0.7 0.4 - 0.7 12/08/2017 [facility] HEMATOLOGY Angle Rapid 73 64 - 80 12/08/2017 [facility] HEMATOLOGY K-time Rapid 1.4 0.6 - 2.3 12/08/2017 [facility] HEMATOLOGY ACT (TEG) Rapid 113 86 - 118 12/08/2017 [facility] BLOOD BANK RESULTS Platelet product Product available (12/08/17 5:41 AM) 12/08/2017 [facility] BLOOD BANK RESULTS FFP product Product available 2 (12/08/17 5:41 AM) 12/08/2017 Result Comment: 12/08/2017 0 6:12 SAMATHEW
Blood available, notified Americo at _12/08/2017 06:12 by _SM. [facility] BLOOD BANK RESULTS RBC product Product available (12/08/17 5:41 AM) 12/08/2017 [facility] BACTERIAL - SEROLOGY Strep pneumonia e Ag Negative (12/08/17 4:27 AM) Negative 12/08/2017 [facility] BACTERIAL - SEROLOGY Source Strep Urine *NA* (12/08/17 4:27 AM) 12/08/2017 [facility] CARDIAC ENZYMES Troponin-I <0.02 0.00 - 0.40 12/08/2017 [facility] HEMATOLOGY FSP <5 ug/ml <5 ug/ml 12/08/2017 [facility] HEMATOLOGY Fibrinogen Lvl 253 230 - 510 12/08/2017 [facility] HEMATOLOGY D-Dimer 0.45 12/08/2017 [facility] IMMUNOLOGY Log10 HIV1 <1.3 12/08/2017 [facility] Vir Ld-HIV1 RNA Not D etected (12/08/17 4:27 AM) 12/08/2017 [facility] [place] Scr Posit adrian *ABN* (12/08/17 4:27 AM) Negative 12/08/2017 [facility] URINE AND STOOL UA Glucose 50 12/08/2017 [facility] URINE AND STOOL UA Color Yellow 12/08/2017 [facility] URINE AND STOOL UA Sq Epi None Seen 12/08/2017 [facility] URINE AND STOOL UA Urobilinogen 2.0 0.1 - 1.0 12/08/2017 [facility] URINE AND STOOL UA Blood Small *ABN* (12/08/17 2:30 AM) Negative 12/08/2017 [facility] URINE AND STOOL UA Bili Negative *NA* (12/08/17 2:30 AM) Negative 12/08/2017 [facility] URINE AND STOOL UA Ketones Negative mg/dL Negative mg/dL 12/08/2017 [facility] st URINE AND STOOL UA Mucus Few /LPF None Seen /LPF 12/08/2017 [facility] URINE AND STOOL UA RBC 6 0 - 2 12/08/2017 [facility] URINE AND STOOL UA Spec Grav 1.021 <=1.030 12/08/2017 [facility] URINE AND STOOL UA Turbidity Slight *ABN* (12/08/17 2:30 AM) Clear 12/08/2017 [facility] URINE AND STOOL UA Protein Negative mg/dL Negative mg/dL 12/08/2017 [facility] st URINE AND STOOL UA pH 5.0 5.0 - 8.0 12/08/2017 [facility] URINE AND STOOL UA Nitrite Negative (12/08/17 2:30 AM) Negative 12/08/2017 [facility] URINE AND STOOL UA WBC 1 0 - 5 12/08/2017 [facility] URINE AND STOOL UA Leuk Est Negative (12/08/17 2:30 AM) Negative 12/08/2017 [facility] BLOOD BANK RESULTS Cryo product Product available 1 (12/08/17 1:28 AM) 12/08/2017 Result Comment: 12/08/2017 0 2:00 SAMATHEW
Blood available, notified Alicia at _12/08/2017 02:00 by SM_. [facility] BACTERIAL - SEROLOGY MRSA by PCR Negative (12/07/17 11:11 PM) 12/08/2017 [facility] DRUG SCREEN U Amph Scr Nega tive *NA* (12/07/17 11:11 PM) Negative 12/08/2017 [facility] DRUG SCREEN U Cannab Scr Nega tive *NA* (12/07/17 11:11 PM) Negative 12/08/2017 [facility] DRUG SCREEN U Yenifer Scr Nega tive *NA* (12/07/17 11:11 PM) Negative 12/08/2017 [facility] DRUG SCREEN U Benzodia Scr Nega tive *NA* (12/07/17 11:11 PM) Negative 12/08/2017 [facility] DRUG SCREEN U Cocaine Scr Nega tive *NA* (12/07/17 11:11 PM) Negative 12/08/2017 [facility] DRUG SCREEN U Opiate Scr Posi tive *ABN* (12/07/17 11:11 PM) Negative 12/08/2017 [facility] DRUG SCREEN U Phencyc Scr Nega tive *NA* (12/07/17 11:11 PM) Negative 12/08/2017 [facility] DRUG SCREEN UDS Note See Note (12/07/17 11:11 PM) 12/08/2017 [facility] BLOOD BANK RESULTS Antibody Scrn Negative (12/07/17 11:04 PM) 12/08/2017 [facility] BLOOD BANK RESULTS ABO/Rh O POS 12/08/2017 [facility] CARDIAC ENZYMES BNP 3 <=100 pg/mL 12/08/2017 [facility] CARDIAC ENZYMES Troponin-I <0.02 0.00 - 0.40 12/08/2017 [facility] CHEM PANEL Procalcitonin Lvl <0.05 0.00 - 0.10 12/08/2017 [facility] LIPIDS VLDL 25 12/08/2017 [facility] LIPIDS LDL (Calculated) 95 <=99 mg/dL 12/08/2017 [facility] LIPIDS Chol 135 <=199 mg/dL 12/08/2017 [facility] LIPIDS HDL 15 >=61 mg/dL 12/08/2017 [facility] LIPIDS CHD Risk 9.00 4.00 - 7.30 12/08/2017 [facility] LIPIDS Trig 123 <=149 mg/dL 12/08/2017 [facility] SPECIAL CHEMISTRY Hgb A1C 5.1 <=5.6 % 12/08/2017 [facility] Pathology Reports No Data Provided for This Section Diagnostic Reports Report Value Date Source Abdomen AP DX Patient Name: SE DIANA ROUSE : 1975; Age: 42 years y/o Male MR: [id number] Study: Abdomen AP DX dated 12/13/2017. Clinical Indication: Constipation - hiccups post splectomy; Comparison: None External roni overlie the abdomen. Moderate amount of stool seen in the right colon and descending colon. Nonpathologic bowel gas pattern without evidence of bowel obstruction. Tiny calcification left lower pelvis likely phlebolith. SL: HARRISODERSTROM-PC 12/13/2017 [facility] Chest 1view DX Clinical Indica tion: resp distress Comparison: 12/11/2017 FINDINGS: The frontal chest radiograph shows normal lung volumes with hazy opacities within the lower lobes, stable. The cardiomediastinal contours are normal. The trachea is midline. There are no clinically significant osseous abnormalities noted. IMPRESSION: Stable bibasilar opacities representing atelectasis versus pneumonia. SL: [id number] 12/12/2017 [facility] Chest 1view DX XR CHEST 1 VIEW [...] to the prior day. SL: LS-M 12/11/2017 [facility] Chest 1view DX EXAM: Chest 1vi ew DX DATE: 12/10/2017 3:10 AM CDT INDICATION: Shortness of breath. COMPARISON: 12/09/2017. IMPRESSION: Stable cardiac silhouette and mediastinum. Interval improvement of the extensive bilateral airspace opacities. No significant pleural effusion or pneumothorax detected. SL: [id number] 12/10/2017 [facility] Chest 1view DX EXAM: Chest 1vi ew DX DATE: 12/09/2017 3:00 AM CDT INDICATION: Respiratory failure - Respiratory failure COMPARISON: 12/08/2017. IMPRESSION: Stable mildly enlarged cardiac silhouette and prominent mediastinum. Interval worsening extensive bilateral airspace opacities are present. Low lung volume. No significant pneumothorax detected. SL: [id number] 12/09/2017 [facility] Chest 1view DX 1 VIEW CXR. POR [...] interval. END OF IMPRESSION SL: WR1-M 12/08/2017 [facility] Chest 1view DX 1 VIEW CXR. POR TABLE EXAM 10:55 PM HISTORY: Shortness of breath. COMPARISON: None. Shallow inspiration with bibasal atelectasis. Upper lungs clear. Cardiomediastinal silhouette normal considering portable technique. Bones intact. IMPRESSION: Shallow inspiration with bibasal atelectasis. END OF IMPRESSION SL: WR1-M 12/07/2017 [facility] Consultation Notes No Data Provided for This Section Discharge Summaries No Data Provided for This Section History and Physicals No Data Provided for This Section Vital Signs Vital Sign Value Date Comments Source Temperature Oral (F) 98.4 F 06/14/2019 [facility] Heart Rate 81 06/14/2019 [facility] Respitory Rate 19 06/14/2019 [facility] Systolic (mm Hg) 136 06/14/2019 [facility] Diastolic (mm Hg) 73 06/14/2019 [facility] Temperature Oral (F) 98.1 F 06/14/2019 [facility] Heart Rate 85 06/14/2019 [facility] Respitory Rate 18 06/14/2019 [facility] Systolic (mm Hg) 147 06/14/2019 [facility] Diastolic (mm Hg) 78 06/14/2019 [facility] Heart Rate 71 06/14/2019 [facility] Respitory Rate 16 06/14/2019 [facility] Systolic (mm Hg) 139 06/14/2019 [facility] Diastolic (mm Hg) 71 06/14/2019 [facility] Temperature Oral (F) 98 F 06/14/2019 [facility] Height 175.2 cm 06/10/2019 [facility] Weight 90.909 06/10/2019 [facility] BMI Calculated 29.62 06/10/2019 [facility] Height 175.26 cm 06/10/2019 [facility] Weight 90.909 06/10/2019 [facility] Height 175.26 cm 06/10/2019 [facility] BMI Calculated 29.6 06/10/2019 [facility] Weight 90.909 06/10/2019 [facility] Heart Rate 101 12/15/2017 [facility] Respitory Rate 18 12/15/2017 [facility] Systolic (mm Hg) 103 12/15/2017 [facility] Diastolic (mm Hg) 61 12/15/2017 [facility] Temperature Oral (F) 98.0 F 12/15/2017 [facility] Systolic (mm Hg) 116 12/15/2017 [facility] Diastolic (mm Hg) 73 12/15/2017 [facility] Respitory Rate 18 12/15/2017 [facility] Heart Rate 98 12/15/2017 [facility] Temperature Oral (F) 98.1 F 12/15/2017 [facility] Systolic (mm Hg) 110 12/15/2017 [facility] Diastolic (mm Hg) 69 12/15/2017 [facility] Respitory Rate 19 12/15/2017 [facility] Heart Rate 86 12/15/2017 [facility] Temperature Oral (F) 98.1 F 12/15/2017 [facility] BMI Calculated 27.51 12/08/2017 [facility] Weight 84.5 12/08/2017 [facility] Height 175.26 cm 12/08/2017 [facility] Encounters Location Location Details Encounter Type Encounter Number Reason For Visit Attending Provider ADM Date DC Date Status Source [facility] Inpatient [id number] Allan Rinaldi 12/08/2017 12/15/2017 [facility] Inpatient [id number] [place] 06/10/2019 06/14/2019 [facility] Procedures Procedure Code Date Perfomer Comments Source Colonoscopy [id number] 09/18/2007 [facility] Tonsillectomy [id number] 09/18/1981 [facility] Splenectomy [id number] [facility] Assessment and Plan Assessment and Plan [...] erythema, and warmth. He first went to [facility] and had the right swelling I&D and subsequently packed. He was then prescribed Bactrim (day 7) and clindamycin (day 3) from [facility]. Bilateral swellings have continued to worsen and he developed fever (102), nausea, and non bloody emesis yesterday. He was seen at [facility] today and was referred here after CT [...] 160 mg oral tablet :1 tab, PO, [id number], for 6 day, 12 tab, 0 Refill(s) [...] Rodger Balderrama MD General Surgery PGY-1 MSO# [id number] Pager #[phone] Addendum by Prabhakar Peña MD on 06/15/2019 [...] ppx heparin Brielle Dowd MD Anesthesia, PGY-1 [facility] ATTENDING ADDENDUM: I have personally seen and examined this patient with Dr. Dowd. Furthermore I have reviewed the resident's note and I agree with the above exam, assessment, and plan. I have reviewed all relevant imaging and interpretted it myself. Gregor. Nuno [id number] 06/14/2019 [facility] Extracted from:Title: FMS Progress Note Author: [...] Rinaldi. Polina Carlson MD MPH PGY1 MSO [id number] Addendum by Allan Rinaldi MD on 12/15/2017 12:47 CDT I was physically present during the irene portions of the patient evaluation and the medical decision making when performed by the resident and I concur with the above documented decisions made by the team under my guidance. Extracted from:Title: Trauma Author: German Carlson MD Date: 12/08/17 Date of Service: 12/08/17 Attending: Robyn [employer] Representatives(s): Cachorro MASON; Ge GRESHAM PreOp Dx: splenic [...] recommended. Pt agreeable German Carlson MD MSO# [id number] 12/15/2017 [facility] Plan of Care No Data Provided for [...] at age: 20.0; entered on: 06/09/19 12/08/2017 [facility] Social History TypeResponse Alcohol Current, Type Beer. Frequency: Daily. Smoking Status Current every day smoker; Type: Cigarettes; Ready to change: Yes; Exposure to Tobacco Smoke None; Cigarette Smoking Last 365 Days Yes; Reg Smoking Cessation Counseling No; Tobacco use per day: 2; Started at age: 20.0; entered on: 12/08/17 12/08/2017 [facility] Family History No Data Provided for This Section Advance Directives No Data Provided for This Section Functional Status No Data Provided for This Section
--- OUTSIDE RECORDS SUMMARY | 2020-02-24 02:04 | XMS REPORT | Continuity of Care Document ---
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 Name Role Phone NO, PCP PCP Unavailable Jose TAPIA Attphys Unavailable Diony Reina Attphys Batsheva Rinaldi Attphys Diony Reina Admphys Batsheva Rinaldi Admphys Payers Payer Name Policy Type Policy Number Effective Date Expiration Date S ource Problems Condition Name Condition Details Condition Category Status Onset Date Resolution Date Last Treatment Date Treating Clinician Comments Source RIGHT THIGH ABSCESS RIGH T THIGH ABSCESS Active 06/09/2019 [facility] Diagnosis Active 2019-06-09 00:00:00 2019-06-09 23:50:00 Manda Cristina ABSCESS OF HIP ABSC ESS OF HIP Active 06/09/2019 [facility] Diagnosis Active 2019-06-09 00:00:00 2019-07-03 2 2:12:00 Manda Cristina LEFT SIDE PNEUMONIA, DEHYDRATION, POLYCT LEFT SIDE PNEUMONIA, DEHYDRATION, POLYCT Active 12/07/2017 [facility] Diagnosis Active 2017-12-07 00:00:00 2017-12-07 22:29:00 M tami Cristina HYPOTENSION, INTRAPERITONEAL HEMATOMA HYPOTENSION, INTRAPERITONEAL HEMATOMA Active 12/07/2017 [facility] Diagnosis Ac tive 2017-12-07 00:00:00 2017-12-12 16:01:00 M tami Cristina Abdominal pain Problem Active C [facility] Pneumonia, unspecified organism Pneumonia, unspecified organism 03/23/2018 [facility] 2018-03-23 12:1 7:40 [facility] Other shock Othe r shock 03/23/2018 [facility] 2018-03-23 12:17:40 [facility] Acute respiratory failure with hypoxia Acute respiratory failure with hypoxia 03/23/2018 [facility] 2018-03-23 12:17:40 [facility] Hemoperitoneum Hemo peritoneum 03/23/2018 [facility] 2018-03-23 12:17:40 [facility] Acute kidney failure, unspecified Acute kidney failure, unspecified 03/23/2018 [facility] 2018-03-23 1 2:17:40 [facility] Acute posthemorrhagic anemia A cute posthemorrhagic anemia 03/23/2018 [facility] 2018-03-23 12:1 7:40 [facility] Coagulation defect, unspecified Coagulation defect, unspecified 03/23/2018 [facility] 2018-03-23 1 2:17:40 [facility] Hyperkalemia Hype rkalemia 03/23/2018 [facility] 2018-03-23 12:17:40 [facility] Fluid overload, unspecified Fl uid overload, unspecified 03/23/2018 [facility] 2018-03-23 12:17:4 0 [facility] Nicotine dependence, cigarettes, uncomplicated Nicotine dependence, cigarettes, uncomplicated 03/23/2018 [facility] 2018-03-23 12:17:40 [facility] PNEUMONIA, UNSPECIFIED ORGANISM PNEUMONIA, UNSPECIFIED ORGANISM Active [facility] Diagnosis Active 2017-12-07 22:29 :00 [facility] DEHYDRATION DEHY DRATION Active [facility] Diagnosis Active 2017-12-07 22:29:00 [facility] HYPOTENSION, UNSPECIFIED HYPO TENSION, UNSPECIFIED Active [facility] Diagnosis Active 2017-12-12 16:01:00 [facility] HEMOPERITONEUM HEMO PERITONEUM Active [facility] Diagnosis Active 2017-12-12 16:01:00 [facility] CUTANEOUS ABSCESS OF LIMB, UNSPECIFIED CUTANEOUS ABSCESS OF LIMB, UNSPECIFIED Active [facility] Diagnosis Active 2019-07-03 22:12:00 [facility] Infarction of spleen Infa rction of spleen 12/20/2017 03/23/2018 [facility] Problem 2017-12-20 03:33:13 2018-03-23 12:1 7:40 2018-03-23 12:17:40 Manda Cristina Allergies, Adverse Reactions, Alerts Allergy Name Allergy Type Status Severity Reaction(s) Onset Date Inacti ve Date Treating Clinician Comments Source iodine DA Active SV 2020-01-30 00:00:00 [facility] iodine DA Active SV 2020-01-25 00:00:00 [facility] iodine DA Active SV 2013-08-30 00:00:00 [facility] Keflex Keflex Active [facility] ermann iodine iodine Active [facility] ermann Social History Social Habit Start Date Stop Date Quantity Comments Source Sex Assigned At [facility] Social History 2017-12-08 06:58:40 2017-12-08 06:58:40 Manda Cristina Medications Ordered Medication Name Filled Medication Name Start Date Stop Da te Current Medication? Ordering Clinician Indication Dosage Frequency Signature (SIG) Comments Components Source Acetaminophen 500 MG Oral Tablet 2019-06-14 17:32:00 Yes 1,000 mg = 2 tab, PO, Q6H, X 14 day, # 112 tab, 0 Refill(s) Manda Cristina Docusate Sodium 50 MG / sennosides, FCI 8.6 MG Oral Tablet 2019-06-14 17:32:00 Yes 1 tab, PO, BID, X 14 day, # 28 tab, 0 Refill(s) Manda Cristina gabapentin 300 MG Oral Capsule 2019-06-14 17:32:00 Yes 300 mg = 1 cap, PO, Q8H, # 42 cap, 0 Refill(s) Jg rial Jonnie methocarbamol 750 mg oral tablet 2019-06-14 17:32:00 Yes 750 mg = 1 tab, PO, TID, X 7 day, # 21 tab, 0 Refill(s) Manda Cristina pantoprazole 40 mg oral enteric coated tablet 2019-06-14 17:32:0 0 Yes 40 mg = 1 tab, PO, Before Breakfast, # 14 tab, 0 Refill(s) Manda Cristina Sulfamethoxazole 800 MG / Trimethoprim 160 MG Oral Tablet [B actrim] 2019-06-14 17:32:00 Yes 1 tab, PO, [id number], X 6 day, # 12 tab, 0 Refill(s) Manda Cristina tramadol hydrochloride 50 MG Oral Tablet 2019-06-14 17:32:00 Yes 100 mg = 2 tab, PO, Q6H, PRN Pain Score 4-6, X 3 day, # 24 tab, 0 Refill(s) Manda Cristina Sulfamethoxazole 800 MG / Trimethoprim 160 MG Oral Tablet [B actrim] 2019-06-13 13:00:00 No Notes: One DS tablet = trimethoprim 160mg + sulfamethoxazole 800 mg Dose based on trimethoprim component On empty stomach with a glass of water. (Same As: Bactrim DS, Septra DS) Manda Cristina vancomycin + Sodium Chloride 0.9% IV 250 mL 2019-06-12 23:00:00 No 2001 mg: infuse over 2.5 hours For adult patients only: Round to nearest 250 mg per Medical Staff approval MEDICATION WASTE Product Size: 1000 mg Product Wasted: ___ mg Manda Cristina Vancomycin 2019-06-12 20:00:00 No 1.25 gm, Route: IVPB, Drug form: INJ, ABXQ8H, Dosing Weight 90.909, kg, Priority: Within 4 hours, Start date: 06/12/19 15:00:00 CDT, Duration: 1 day, Stop date: 06/13/19 7:00:00 CDT, ABX Indication: Skin/Soft Tissue Infection Gerri Cristina Sulfamethoxazole 800 MG / Trimethoprim 160 MG Oral Tablet [B actrim] 2019-06-12 18:00:00 No Notes: One DS tablet = trimethoprim 160mg + sulfamethoxazole 800 mg Dose based on trimethoprim component On empty stomach with a glass of water. (Same As: Bactrim DS, Septra DS) Manda Cristina Robaxin 2019-06-12 14:00:00 No Notes: (Same as:Robaxin) [facility] [address] Tetrahydrocannabinol 2019-06-12 01:31:00 No Notes: (Same as: Marinol) Manda Cristina Dilaudid 2019-06-11 19:40:00 No 0.5 mg, Route: IVP, ONCE, Dosing Weight 90.909, kg, Priority: STAT, Start date: 06/11/19 14:40:00 CDT, Stop date: 06/11/19 14:40:00 CDT [facility] Jon[address] gabapentin 300 MG Oral Capsule 2019-06-11 05:00:00 No Notes: (Same as: Neurontin) [facility] Acetaminophen 2019-06-11 05:00:00 No Notes: Infuse over 15 minutes Do not exceed 4gm/day of acetaminophen MEDICATION WASTE Product Size: 1000 mg Product Wasted: ___ mg Michael burciaga [place] Morphine 2019-06-11 02:00:00 No Not es: (Same as:MORPhine Sulfate) [facility] hydromorphone ([facility]) + sodium chloride ([facility]) 9 mL 2019-05-20 3 23:30:00 No Route: IV, Drug form: INJ, ONCE, Stop date: 18:30:00 CDT [facility] lidocaine ([facility]) 2019-06-10 23:24:00 No Route: IV, Drug form: INJ, ONCE, Stop date: 06/10/19 18:24:00 CDT [facility] propofol ([facility]) 2019-06-10 23:24:00 No Route: IV, Drug form: INJ, ONCE, Stop date: 06/10/19 18:24:00 CDT [facility] rocuronium ([facility]) 2019-06-10 23:24:00 No Route: IV, Drug form: INJ, ONCE, Stop date: 06/10/19 18:24:00 CDT [facility] succinylcholine ([facility]) 2019-06-10 23:24:00 No Route: IV, Drug form: INJ, ONCE, Stop date: 06/10/19 18:24:00 CDT [facility] fentaNYL ([facility]) 2019-06-10 23:24:00 No Route: IV, Drug form: INJ, ONCE, Stop date: 06/10/19 18:24:00 CDT [facility] Hydralazine 2019-06-10 23:16:00 No 10 mg, Route: IVP, Q20Min, Dosing Weight 90.909, kg, PRN Elevated BP, Start date: 06/10/19 18:16:00 CDT, Duration: 2 doses or times, Stop date: Limited # of times [facility] Labetalol 2019-06-10 23:16:00 No 10 mg, Route: IVP, Q5Min, Dosing Weight 90.909, kg, PRN Elevated BP, Start date: 06/10/19 18:16:00 CDT, Duration: 5 doses or times, Stop date: Limited # of times [facility] Oxycodone Hydrochloride 5 MG Oral Tablet 2019-06-10 23:16:00 No 5 mg, Route: PO, Drug form: TAB, Q4H, Dosing Weight 90.909, kg, PRN Pain Score 4- 6, Start date: 06/10/19 18:16:00 CDT, Duration: 30 day, Stop date: 07/10/19 18:15:00 CDT [facility] Hydromorphone 2019-06-10 23:16:00 No 0.5 mg, Route: IVP, Q5Min, Dosing Weight 90.909, kg, PRN Pain Score 7-10, Start date: 06/10/19 18:16:00 CDT, Duration: 4 doses or times, Stop date: Limited # of times [facility] Flumazenil 2019-06-10 23:16:00 No 0.2 mg, Route: IVP, PRN, Dosing Weight 90.909, kg, PRN Benzodiazepine Reversal, Initial dose, Start date: 06/10/19 18:16:00 CDT, Duration: 30 day, Stop date: 07/10/19 18:15:00 CDT [facility] Naloxone 2019-06-10 23:16:00 No 0.4 mg, Route: IVP, Q2MIN, Dosing Weight 90.909, kg, PRN Narcotic Reversal, Start date: 06/10/19 18:16:00 CDT, Duration: 8 doses or times, Stop date: Limited # of times [facility] Ondansetron 2019-06-10 23:16:00 No 4 mg, Route: IVP, ONCE, Dosing Weight 90.909, kg, PRN Nausea & Vomiting, Start date: 06/10/19 18:16:00 CDT [facility] midazolam (ANES) 2019-06-10 22:44:00 No Route: IV, Drug form: SOLN, ONCE, Stop date: 06/10/19 17:44:00 CDT tami [place] Lactated Ringers Injection IV (ANES) 1000 mL 2019-06-10 22:12:00 No Route: IV, Total Volume: 1,000, Start date: 06/10/19 17:12:00 CDT, Stop date: 06/10/19 18:12:00 CDT Manda Cristina remove patch 2019-06-10 22:00:00 No Notes: Remove patch 12 hours after application each day. Manda Her goyal Acetaminophen 300 MG / Codeine Phosphate 30 MG Oral Tablet 2019-06-10 20:46:00 No 1 tab, PO, Q6H, PRN pain, # 20 tab, 0 Refill(s) Manda Jonnie vancomycin 2019-06-10 19:00:00 No 2001 mg: infuse over 2.5 hours For adult patients only: Round to nearest 250 mg per Medical Staff approval MEDICATION WASTE Product Size: 1000 mg Product Wasted: ___ mg Manda Cristina Ondansetron 2 MG/ML Injectable Solution [Zofran] 2019-06-10 16:1 6:00 No Notes: (Same as: Zofran) * MEDICATION WASTE Product Size: 4 mg Product Wasted: ___ mg Manda Cristina Nicotine 2019-06-10 14:00:00 No Notes: (Same as: Habitrol) "Remove old patch before application of new patch" WASTE: F/P - P Waste Black; E - P Waste Black Manda [place] remove patch 2019-06-10 14:00:00 No Notes: Remove old patch before application of new patch. WASTE: F/P - P Waste Black; E - P Waste Black Manda Cristina Docusate Sodium 50 MG / sennosides, FCI 8.6 MG Oral Tablet 2019-06-10 14:00:00 No Notes: (Same as Senokot-S) Equ iv. to Isis-Colace. Manda Cristina meropenem 2019-06-10 13:00:00 No Notes: (Same as: Merrem) . MEDICATION WASTE Product Size: 1000 mg Product Wasted: ___ mg Manda Cristina pantoprazole 2019-06-10 12:30:00 No Notes: Tablet should not be chewed or crushed. (Same as: Protonix) Gerri emoripatrica Cristina Tylenol 2019-06-10 11:00:00 No Notes: Max acetaminophen 4000 mg/day (4 gm/day). (Same as: Tylenol Extra Strength) Manda Cristina Tramadol 2019-06-10 11:00:00 No 50 mg, Route: PO, Drug form: TAB, Q6H, Dosing Weight 90.909, kg, Start date: 06/10/19 6:00:00 CDT, Duration: 30 day, Stop date: 07/10/19 0:00:00 CDT [facility] oripatrica Cristina Lidocaine Hydrochloride 0.05 MG/MG Transdermal Patch [Lidode rm] 2019-06-10 10:00:00 No Notes: Bon ly only once for up to 12 hours in a 24-hour period (12 hours on and 12 hours off). (Same as: Lidoderm) "Remove old patch before application of new patch" Maggi Cristina Vancomycin 2019-06-10 09:00:00 No 2001 mg: infuse over 2.5 hours [facility] heparin 2019-06-10 09:00:00 No Notes: porci ne heparin [facility] heparin sodium, porcine 2500 UNT/ML Injectable Solution 2019-06-10 07:00:00 No Notes: porcine heparin [facility] Tramadol 2019-06-10 06:53:00 No Notes: Not to exceed 400mg/day. (Same As: Ultram) [facility] Vancomycin 2019-06-10 06:20:00 No 800 mg, Route: IV, ONCE, Dosing Weight 90.909, kg, Start date: 06/10/19 1:20:00 CDT, Stop date: 06/10/19 1:20:00 CDT, ABX Indication: Skin/Soft Tissue Infection [facility] Isolyte S PH 7.4 1,000 mL 2019-06-10 06:05:00 No Notes: (Same as: Isolyte S PH 7.4) [facility] meropenem 2019-06-10 05:37:00 No Notes: Same as Merrem MEDICATION WASTE Product Size: 500 mg Product Wasted: _0__ mg [facility] Morphine 2019-06-10 04:28:00 No Not es: (Same as:MORPhine Sulfate) [facility] ferrous sulfate 325 MG Oral Tablet 2017-12-15 16:57:00 Yes 325 mg = 1 tab, PO, TID, # 90 tab, 0 [facility] mg oral tablet 2017-12-15 16:57:00 Yes 25 mg = 1 tab, PO, BID, # 10 tab, 0 Refill(s) Jg Cristina ferrous sulfate 2017-12-15 14:00:00 No Notes: Give with food. iron elemental 75td=532fs as ferrous sulfate Dose=___mg elemental iron Manda Gongann meningococcal group A polysaccharide / m eningococcal group C polysaccharide / MENINGOCOCCAL POLYSACCHARIDE VACCINE GROUP W-135 / MENINGOCOCCAL POLYSACCHARIDE VACCINE GROUP Y 2017-12-14 21:39:00 No Notes: (Same as: [place]omune A/C/Y/W-135) (meningococcal polysaccharide vaccine 0.5ml/dose INJ) WASTE: F/P - Black; E - Municipal Trash Bin Michael Gutierrezann Chlorpromazine 2017-12-13 18:00:00 No Notes: (Same As: Thorazine) Manda Jonnie Haemophilus influenzae type b strain 148 2, capsular polysaccharide inactivated tetanus toxoid conjugate vaccine 0.068 MG/ML Injectable Solution [ActHIB] 2017-12-13 16:00:00 No Notes: (Same as: Act Hib) Haemophilus Influenzae Conjugate Vaccine (tetanus toxid conjugate). Manda Jonnie Chlorpromazine 2017-12-13 15:26:00 No Notes: (Same As: Thorazine) [facility] Jonnie Protonix 2017-12-12 21:30:00 No 20 mg, Route: PO, Drug form: ECTAB, Before Dinner, Dosing Weight 84.5, kg, Start date: 12/12/17 16:30:00 CDT, Duration: 30 day, Stop date: 01/10/18 16:30:00 CDT [facility] Jonnie Miralax 2017-12-12 14:00:00 No Notes: Dissolve in 8 oz of water or juice. (Same as: Miralax) Manda Janine nn Baclofen 2017-12-11 17:48:00 No Notes: (Norm e As: Lioresal) [facility] [address] Zosyn 2017-12-11 17:00:00 No Notes: (Same as: Zosyn) Dosing based on Piperacillin component MEDICATION WASTE Product Size: 3375 mg Product Wasted: ___ mg [facility] Jonnie Lasix 2017-12-11 02:00:00 No Notes: (Same as: Lasix) MEDICATION WASTE Product Size: 40 mg Product Wasted: ___ mg [facility] Tramadol 2017-12-10 16:45:00 No Notes: Not to exceed 400mg/day. (Same As: Ultram) [facility] Methadone 2017-12-10 16:45:00 No Notes: (Sa me as: Dolophine) [facility] Acetaminophen 2017-12-10 16:45:00 No Notes: Max acetaminophen 4000 mg/day (4 gm/day). (Same as: Tylenol Extra Strength) [facility] multivitamin 2017-12-10 14:00:00 No Notes: (Same as:Thera) WASTE: F/P - Black; E - Municipal Trash Bin Take with food. [facility] Thiamine 2017-12-10 14:00:00 No 100 mg, Route: PO, Daily, Dosing Weight 84.5, kg, Start date: 12/10/17 9:00:00 CDT, Duration: 5 day, Stop date: 12/14/17 9:00:00 CDT [facility] Folic Acid 2017-12-10 14:00:00 No Notes: (S lynn as: Folvite) [facility] Furosemide 2017-12-10 14:00:00 No 40 mg, Route: IVP, Drug form: INJ, Daily, Dosing Weight 84.5, kg, Start date: 12/10/17 9:00:00 CDT, Duration: 30 day, Stop date: 01/08/18 9:00:00 CDT [facility] orial [place] Lasix 2017-12-10 13:15:00 No 40 mg, Route: IVP, Drug form: INJ, ONCE, Dosing Weight 84.5, kg, Start date: 12/10/17 8:15:00 CDT, Stop date: 12/10/17 8:15:00 CDT [facility] Acetaminophen 2017-12-09 23:00:00 No Notes: Max acetaminophen 4000 mg/day (4 gm/day). (Same as: Tylenol Extra Strength) [facility] Furosemide 2017-12-09 22:47:00 No 40 mg, Route: IVP, Drug form: INJ, ONCE, Dosing Weight 84.5, kg, Start date: 12/09/17 17:47:00 CDT, Stop date: 12/09/17 17:47:00 CDT Manda Cristina Furosemide 2017-12-09 14:27:00 No Notes: (Same as: Lasix) MEDICATION WASTE Product Size: 40 mg Product Wasted: ___ mg Manda Cristina Lorazepam 2017-12-09 14:02:00 No Notes: (Sa me as: Ativan) Manda Cristina Vitamin B1 2017-12-09 14:00:00 No Notes: (S lynn As: Vitamin B1) [facility] Jonnie Protonix 2017-12-09 12:30:00 No Notes: Tablet should not be chewed or crushed. (Same as: Protonix) Manda Cristina Lasix 2017-12-09 11:07:00 No Notes: (Same as: Lasix) MEDICATION WASTE Product Size: 40 mg Product Wasted: ___ mg Manda Cristina Acetaminophen 325 MG / Hydrocodone Bitartrate 5 MG Oral Tabl et [[place] 5/325] 2017-12-09 10:36:00 No Notes: (Same as: [place] 325/5) Do not exceed 4gm/day of acetaminophen. [facility] Janine nn Robitussin-AC oral syrup 2017-12-09 10:36:00 No Notes: (Same As: Robitussin AC) [facility] Jonnie sennosides, FCI 2017-12-09 02:00:00 No Notes: (Same as: Senokot) [facility] Jonnie Docusate 2017-12-09 02:00:00 No Notes: (Same as: Colace) (Do Not Crush) [facility] Protonix 2017-12-09 00:55:00 No Notes: Tablet should not be chewed or crushed. (Same as: Protonix) [facility] Jonnie NS (Bolus) IV 2017-12-08 22:04:00 No 500 mL, 500 ml/hr, Infuse Over: 1 hr, Route: IV, 500, Drug form: INJ, ONCE, Priority: STAT, Dosing Weight 84.5 kg, Start date: 12/08/17 17:04:00 CDT, Stop date: 12/08/17 17:04:00 CDT [facility] Jonnie Zofran 2017-12-08 19:04:00 No Notes: (Same as: Zofran) MEDICATION WASTE Product Size: 4 mg Product Wasted: ___ mg [facility] diphtheria toxoid vaccine, inactivated / Haemophilus capsula r oligosaccharide 2017-12-08 19:00:00 No 0.5 ml, Route: IM, Drug Form: SOLN, Dosing Weight 84.5, kg, ONCALL, Within 24 hours, Start date: 12/08/17 14:00:00 CDT, Duration: 1 day, Stop date: 12/09/17 13:59:00 CDT [facility] meningococcal group A polysaccharide / m eningococcal group C polysaccharide / MENINGOCOCCAL POLYSACCHARIDE VACCINE GROUP W-135 / MENINGOCOCCAL POLYSACCHARIDE VACCINE GROUP Y 2017-12-08 19:00:00 No 0.5 ml, Route: SUB-Q, Dosing Weight 84.5, kg, ONCALL, Within 24 hours, Start date: 12/08/17 14:00:00 CDT [facility] pneumococcal capsular polysaccharide typ e 1 vaccine / pneumococcal capsular polysaccharide type 10A vaccine / pneumococcal capsular polysaccharide type 11A vaccine / pneumococcal capsular polysaccharide type 12F vaccine / pneumococcal capsular polysacchar 2017-12-08 18:27:00 No Notes: (Same as: Pneumovax 23) [facility] haemophilus b conjugate (PRP-T) vaccine 2017-12-08 18:00:00 No Notes: (Same as: Act Hib) Haemophilus Influenzae Conjugate Vaccine (tetanus toxid conjugate). [facility] acetaminophen 2017-12-08 17:39:00 No Notes: Infuse over 15 minutes Do not exceed 4gm/day of acetaminophen MEDICATION WASTE Product Size: 1000 mg Product Wasted: ___ mg Memoria l [facility] pneumococcal 13-valent vaccine intramuscular suspension 2017-12-08 17:00:00 No Notes: Shake well prior to use (Same as : Prevnar 13) [facility] Ipratropium [place] 0.2 MG/ML Inhalant Solution 2017-12-08 17:00 :00 No Notes: SEE RT DOCUMENTATION (Same as:Atrovent) [facility] meningococcal group A polysaccharide / m eningococcal group C polysaccharide / MENINGOCOCCAL POLYSACCHARIDE VACCINE GROUP W-135 / MENINGOCOCCAL POLYSACCHARIDE VACCINE GROUP Y 2017-12-08 17:00:00 No Notes: (Same as: Menomune A/C/Y/W-135) (meningococcal polysaccharide vaccine 0.5ml/dose INJ) WASTE: F/P - Black; E - Municipal Trash Bin Maggi Cristina Haemophilus capsular oligosaccharide 0.0 15 MG/ML / Neisseria meningitidis 0.25 MG/ML Injectable Suspension 2017-12-08 17:00:00 No 0.5 ml, Route: IM, Drug Form: SUSP, Dosing Weight 84.5, kg, ONCALL, Start date: 12/08/17 12:00:00 CDT, Duration: 30 day, Stop date: 01/07/18 11:59:00 CDT Manda Cristina Haemophilus capsular oligosaccharide 0.0 15 MG/ML / Neisseria meningitidis 0.25 MG/ML Injectable Suspension 2017-12-08 16:47:00 No 0.5 ml, Route: IM, Drug Form: SUSP, Dosing Weight 84.5, kg, ONCE, Start date: 12/08/17 11:47:00 CDT, Stop date: 12/08/17 11:47:00 CDT Pr moripatrica Jonnie Tramadol 2017-12-08 16:13:00 No Notes: Not to exceed 400mg/day. (Same As: Ultram) [facility] Ketorolac 2017-12-08 16:13:00 No 4 days MEDICATION WASTE Product Size: 30 mg Product Wasted: ___ mg [facility] celecoxib 2017-12-08 16:13:00 No Notes: NSAID. Please check indication. Not for seizure. (Same As: CeleBREX) [facility] pregabalin 2017-12-08 16:13:00 No Notes: (S lynn as: Lyrica) [facility] Acetaminophen 2017-12-08 16:13:00 No Notes: Infuse over 15 minutes Do not exceed 4gm/day of acetaminophen MEDICATION WASTE Product Size: 1000 mg Product Wasted: ___ mg Maggi Cristina Methadone 2017-12-08 16:13:00 No Notes: (Sa me as: Dolophine) [facility] metoprolol (ANES) 2017-12-08 15:08:00 No Route: IV, Drug form: INJ, ONCE, Stop date: 12/08/17 10:08:00 CDT [facility] glycopyrrolate ([facility]) 2017-12-08 15:03:00 No Route: IV, Drug form: INJ, ONCE, Stop date: 12/08/17 10:03:00 CDT [facility] neostigmine ([facility]) 2017-12-08 15:03:00 No Route: IV, Drug form: INJ, ONCE, Stop date: 12/08/17 10:03:00 CDT Gerri [facility] morphine Sulfate (ANES) 2017-12-08 15:03:00 No Route: IV, Drug form: INJ, ONCE, Stop date: 12/08/17 10:03:00 CDT [facility] calcium chloride ([facility]) 2017-12-08 14:58:00 No Route: IV, Drug form: INJ, ONCE, Stop date: 12/08/17 9:58:00 CDT [facility] ondansetron ([facility]) 2017-12-08 14:53:00 No Route: IV, Drug form: INJ, ONCE, Stop date: 12/08/17 9:53:00 CDT [facility] propofol (ANES) 2017-12-08 14:43:00 No Route: IV, Drug form: INJ, ONCE, Stop date: 12/08/17 9:43:00 [facility] fentaNYL (ANES) 2017-12-08 14:43:00 No Route: IV, Drug form: INJ, ONCE, Stop date: 12/08/17 9:43:00 CDT [facility] rocuronium (ANES) 2017-12-08 14:43:00 No Route: IV, Drug form: INJ, ONCE, Stop date: 12/08/17 9:43:00 CDT [facility] Sodium Chloride 0.9% IV ([facility]) 500 mL 2017-12-08 14:38:00 N o Route: IV, Total Volume: 500, Start date: 12/08/17 9:38:00 CDT, Stop date: 12/08/17 10:38:00 CDT [facility] phenylephrine ([facility]) 2017-12-08 14:23:00 No Route: IV, Drug form: INJ, ONCE, Stop date: 12/08/17 9:23:00 CDT [facility] ceFAZolin (ANES) 2017-12-08 14:13:00 No Route: IV, Drug form: INJ, ONCE, Stop date: 12/08/17 9:13:00 CDT [facility] potassium chloride (ANES) 40 mEq 2017-12-08 14:11:00 No Route: IV, Drug form: INJ, Start date: 12/08/17 9:11:00 CDT, Stop date: 12/08/17 10:11:00 CDT [facility] Prednisone 2017-12-08 14:00:00 No Notes: Ta ke with food. [facility] [facility] 2017-12-08 14:00:00 No Notes: (S lynn As: Pulmicort) [facility] Saline Flush 0.9% 2017-12-08 14:00:00 No Notes: (Same as: BD Posiflush) [facility] Isolyte S PH 7.4 (ANES) 1000 mL 2017-12-08 13:31:00 No Route: IV, Total Volume: 1,000, Start date: 12/08/17 8:31:00 CDT, Stop date: 12/08/17 9:31:00 CDT [facility] normal saline 0.9% IV 1,000 mL 2017-12-08 13:22:00 No 1,000 mL, Rate: 100 ml/hr, Infuse over: 10 hr, Route: IV, Dosing Weight 84.5 kg, Total Volume: 1,000, Start date: 12/08/17 8:22:00 CDT, Duration: 30 day, Stop date: 01/07/18 8:21:00 CDT, 2.04, m2 [facility] Sodium Chloride 0.9% IV 1,000 mL + M.V.I .-12 10 mL Daily + folic acid IV 1 mg Daily 2017-12-08 13:21:00 No 1,000 mL, Rate: 100 ml/hr, Infuse over: 10.1 hr, Route: IV, Dosing Weight 84.5 kg, Total Volume: 1,010.2, Start date: 12/08/17 8:21:00 CDT, Stop date: 12/11/17 8:20:00 CDT, 2.04, m2 [facility] Hydrocortisone 2017-12-08 11:32:00 No Notes: (Same as: Isiah) Manda Gongann Benadryl 2017-12-08 11:32:00 No Notes: (Norm e as: Benadryl) Manda Cristina Lasix 2017-12-08 11:17:00 No 20 mg, Route: IVP, Drug form: INJ, ONCE, Dosing Weight 84.5, kg, Priority: NOW, Start date: 12/08/17 6:17:00 CDT, Stop date: 12/08/17 6:17:00 CDT Manda Jonnie Tranexamic Acid 2017-12-08 10:41:00 No Notes: (Same As: Cyklokapron) Manda Jonnie Diphenhydramine 2017-12-08 07:16:00 No Notes: (Same as: Bennatividadl) Manda Cristina Esomeprazole 20 MG Enteric Coated Capsule [Nexium] 2017-11 07:06:00 Yes 20 mg = 1 cap, PO, Daily, # 30 cap, 0 Re fill(s) Manda Cristina Levofloxacin 2017-12-08 07:00:00 No Notes: Do not give w/antacids, dairy pdt & minerals Take 1 hr before or 2 hr after dairy products Manda Cristina Albuterol 0.83 MG/ML Inhalant Solution 2017-12-08 05:14:00 No Notes: SEE RT DOCUMENTATION (Same as: Shavonne) Manda Cristina Dextrose 50% Syringe 2017-12-08 05:14:00 No 25 gm, 50 mL, Route: IVP, Drug Form: INJ, Dosing Weight 84.5, kg, ONCE, Start date: 12/08/17 0:14:00 CDT, Stop date: 12/08/17 0:14:00 CDT [facility] nikki Cristina Insulin regular 2017-12-08 05:14:00 No 60 units) WASTE: F/P - Black; E - Municipal Trash Bin Stable for 28 days at room temperature Expires in days from Date Gerri Cristina normal saline 0.9% IV 1,000 mL 2017-12-08 05:03:00 No 1,000 mL, Rate: 150 ml/hr, Infuse over: 6.7 hr, Route: IV, Dosing Weight 84.5 kg, Total Volume: 1,000, Start date: 12/08/17 0:03:00 CDT, Duration: 30 day, Stop date: 01/07/18 0:02:00 CDT, 2.04, m2 Manda Cristina Calcium Gluconate 2017-12-08 05:03:00 No Notes: WASTE: F/P - Sink; E - Municipal Trash Bin Manda Cristina Morphine 2017-12-08 03:39:00 No Not es: (Same as:MORPhine Sulfate) Manda Cristina Sodium Chloride 0.9% (titrate) 250 mL 2017-12-08 03:36:00 N o 250 mL, Rate: To prime line and flush remaining blood products., Route: IV, Total Volume: 250, Start Date: 12/07/17 22:36:00 CDT, Duration: 30 day, Stop date: 01/06/18 22:35:00 CDT, Replace Every: 24 hr Manda Cristina Acetaminophen 2017-12-08 03:35:00 No Notes: Do not exceed 4 gm/day. (Same as: Tylenol) Manda Cristina Nystatin 100 UNT/MG Topical Powder 2017-12-08 03:35:00 No Notes: (Same as:Mycostatin, Nilstat) For external use only. Manda Cristina Ondansetron 2017-12-08 03:35:00 No Notes: (Same as: Zofrjohn) MEDICATION WASTE Product Size: 4 mg Product Wasted: ___ mg Madna Cristina Calcium Carbonate 500 MG Chewable Tablet 2017-12-08 03:35:00 No Notes: (Same As: Victor Hugo) Calcium Carbonate 500 mg = 200 mg elemental calcium Dose = mg calcium carbonate ( mg elemental calcium) Manda Cristina potassium phosphate-sodium phosphate 250 mg-280 mg-160 mg oral powder for reconstitution 2017-12-08 03:35:00 No Notes: (Same as: Phos-NaK) Each 1.5 gm pkt has 250mg phosphorous. Mix w/2.5oz water and stir. Manda Cristina Calcium Gluconate 2017-12-08 03:35:00 No Notes: WASTE: F/P - Sink; E - Municipal Trash Bin Manda Cristina Magnesium Oxide 2017-12-08 03:35:00 No Notes: (Same as: Mag-Ox 400) Magnesium oxide 369uk=654mg elemental magnesium Dose=____mg magnesium oxide (___mg elemental magnesium) Manda goyal Potassium Chloride 2017-12-08 03:35:00 No Notes: Infuse at a rate of 10 mEq/hr. (Same as: KCL) Manda avalos potassium phosphate 2017-12-08 03:35:00 No Notes: (Same as: K Phosphate.) 1 mMol phoshate has 1.47 mEq potassium Infuse over 4 hours Manda Cristina sodium phosphate 2017-12-08 03:35:00 No 30 mmol, 10 mL, Route: IVPB, PRN, kg, PRN Abnormal Lab Result, Start date: 12/07/17 22:35:00 CDT, Duration: 30 day, Stop date: 01/06/18 22:34:00 CDT, FOR ICU USE ONLY Manda Cristina Magnesium Sulfate 2017-12-08 03:35:00 No Notes: WASTE: F/P - Sink; E - Municipal Trash Bin [facility] Jonnie Saline Flush 0.9% 2017-12-08 03:35:00 No Notes: (Same as: BD Posiflush) [facility] Jonnie Ipratropium 2017-12-08 03:35:00 No Notes: SEE RT DOCUMENTATION (Same as:Atrovent) Manda Cristina Albuterol 0.83 MG/ML Inhalant Solution 2017-12-08 03:35:00 No Notes: SEE RT DOCUMENTATION (Same as: Proventil) Manda Cristina Vital Signs Vital Name Observation Time Observation Value Comments Source Weight 2020-02-02 13:12:00 190 [lb_av] [facility] BMI (Body Mass Index) 2020-02-02 13:12:00 28.9 kg/m2 [facility] Temperature Oral (F) 2019-06-14 16:50:00 98.4 F [facility] Heart Rate 2019-06-14 16:50:00 [facility] Respitory Rate 2019-06-14 16:50:00 [facility] Systolic (mm Hg) 2019-06-14 16:50:00 Jg [facility] Diastolic (mm Hg) 2019-06-14 16:50:00 [facility] Temperature Oral (F) 2019-06-14 13:05:00 98.1 F [facility] Heart Rate 2019-06-14 13:05:00 [facility] Respitory Rate 2019-06-14 13:05:00 [facility] Systolic (mm Hg) 2019-06-14 13:05:00 Jg rial Jonnie Diastolic (mm Hg) 2019-06-14 13:05:00 [facility] Heart Rate 2019-06-14 08:24:00 [facility] Respitory Rate 2019-06-14 08:24:00 [facility] Systolic (mm Hg) 2019-06-14 08:24:00 Jg rial Jonnie Diastolic (mm Hg) 2019-06-14 08:24:00 [facility] Temperature Oral (F) 2019-06-14 04:25:00 98 F [facility] Height 2019-06-10 09:20:00 175.2 cm [facility] Weight 2019-06-10 09:20:00 [facility] BMI Calculated 2019-06-10 09:20:00 [facility] Height 2019-06-10 06:24:00 175.26 cm [facility] Weight 2019-06-10 06:24:00 [facility] Height 2019-06-10 04:03:00 175.26 cm [facility] BMI Calculated 2019-06-10 04:03:00 [facility] Weight 2019-06-10 04:03:00 [facility] Heart Rate 2017-12-15 17:09:00 [facility] Respitory Rate 2017-12-15 17:09:00 [facility] Systolic (mm Hg) 2017-12-15 17:09:00 Jg rial Jonnie Diastolic (mm Hg) 2017-12-15 17:09:00 [facility] Temperature Oral (F) 2017-12-15 17:09:00 98.0 F [facility] Systolic (mm Hg) 2017-12-15 12:06:00 Jg rial Jonnie Diastolic (mm Hg) 2017-12-15 12:06:00 [facility] Respitory Rate 2017-12-15 12:06:00 [facility] Heart Rate 2017-12-15 12:06:00 [facility] Temperature Oral (F) 2017-12-15 12:06:00 98.1 F [facility] Systolic (mm Hg) 2017-12-15 10:48:00 [facility] Diastolic (mm Hg) 2017-12-15 10:48:00 [facility] Respitory Rate 2017-12-15 10:48:00 [facility] Heart Rate 2017-12-15 10:48:00 [facility] Temperature Oral (F) 2017-12-15 10:48:00 98.1 F [facility] BMI Calculated 2017-12-08 03:43:00 [facility] Weight 2017-12-08 03:43:00 [facility] Jonnie Height 2017-12-08 03:43:00 175.26 cm [facility] Procedures Procedure Date / Time Performed Performing Clinician [facility] e CT of abdomen and pelvis without contrast 2020-02-02 00:00:00 [facility] Colonoscopy 2007-09-18 00:00:00 [facility] Her goyal Tonsillectomy 1981-09-18 00:00:00 [facility] Her goyal Splenectomy [facility] Plan of Care Planned Activity Planned Date Details Comments Source Instructions Abdominal Pain - Adult [facility] Encounters Start Date/Time End Date/Time Encounter Type Admission Type Attendi [facility] Care Department Encounter ID Source 2020-02-02 13:03:00 2020-02-02 17:03:00 Departed Emergency Room 1 REGINA DARIEN [facility] [id number] [facility] 2019-06-09 23:02:00 2019-06-14 16:01:00 Outpatient Gregor Reina [facility] [id number] 2019-06-09 21:48:00 2019-06-09 21:48:00 Inpatient E [facility] [id number] [facility] 2017-12-07 22:28:00 2017-12-15 16:00:00 Outpatient Allan Rinaldi [facility] [id number] Results Test Description Test Time Test Comments Results Result Comments Source CT ABDOMEN/PELVIS WO 2020-02-02 16:06:00 [place] [address] Patient Name: MINE ROUSE MR #: [id number] : 1975 Age/Sex: 44/M Req #: [id number] Adm Physician: Ordered by: SHUKRI CACERES NP Report #: [id number] Location: ER Room/Bed: Procedure: [id number] CT/CT ABDOMEN/PELVIS WO Exam Date: 02/02/20 Exam Time: 1450 REPORT STATUS: Signed EXAM: CT Abdomen and Pelvis WITHOUT contrast INDICATION: Nausea, abdominal pain. COMPARISON: None. TECHNIQUE: Abdomen and pelvis were scanned utilizing a multidetector helical scanner from the lung base to the pubic symphysis without administration of IV contrast. Absence of intravenous contrast decreases sensitivity for detection of focal lesions and vascular pathology. Coronal and sagittal reformations were obtained. Stone protocol is performed. IV CONTRAST: None. ORAL CONTRAST: Gastrografin RADIATION DOSE: Total DLP: 470.9 mGy*cm Estimated effective dose: (DLP x 0.015 x size fa ctor) mSv COMPLICATIONS: None FINDINGS: LINES and TUBES: None. LOWER THORAX: There are mild patchy opacities within the bilateral lower lobes. HEPATOBILIARY: No focal hepatic lesions. No biliary ductal dilation. GALLBLADDER: No radio-opaque stones or sludge. No wall thickening. 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 PANCREAS: No focal masses or ductal dilatation. ADRENALS: No adrenal nodules KIDNEYS/URETERS: No hydronephrosis. No cystic or solid mass lesions. No stones. GI TRACT: No evidence of bowel obstruction. There is wall thickening within the duodenum and jejunal loops. PELVIC ORGANS/BLADDER: Unremarkable. LYMPH NODES: No lymphadenopathy. VESSELS: Unremarkable. PERITONEUM / RETROPERITONEUM: No free air or fluid. BONES: Unremarkable. SOFT TISSUES: Unremarkable. IMPRESSION: Findings compatible with enteritis, which may be infectious or inflammatory. Normal appendix. No evidence of nephrolithiasis. Mild patchy opacities in the the bilateral lower lobes likely atelectasis, although infection can have a similar appearance in the appropriate clinical setting. Signed by: Dr. Chavo Can MD on 02/02/2020 4:13 PM Dictated By: CHAVO CAN MD 12 Transcr ibed By: ABIDA on 02/02/201612 COPY TO: SHUKRI CACERES DISHWASHER Blood leukocytes automated count (number/volume) 2020-02-02 13:38:00 Test Item White Blood Count (test code = 6690-2) 11.35 4.8-10.8 [facility] count (number/volume)2020-02-02 13:38:00* Test Item Value Reference Range Interpretation Comments Red Blood Count (test code = 789-8) 6.36 4.3-5.7 [facility] hemoglobin measurement (moles/volume)2020-02-02 13:38:00* Test Item Value Reference Range Interpretation Comments Hemoglobin (test code = 77818-1) 17.1 14.0-18.0 [facility] CenterAutomated blood hematocrit (volume fraction)2020-02-02 13:38:00* Test Item Value Reference Range Interpretation Comments Hematocrit (test code = 4544-3) 50.0 38.2-49.6 [facility] CenterAutomated erythrocyte mean corpuscular rqwfhn2661-41-59 13:38:00* Test Item Value Reference Range Interpretation Comments Mean Corpuscular Volume (test code = 787-2) 78.6 81-99 [facility] CenterAutomated erythrocyte mean corpuscular hemoglobin (mass per erythrocyte)2020-02-02 13:38:00* Test Item Value Reference Range Interpretation Comments Mean Corpuscular Hemoglobin (test code = 785-6) 26.9 28-32 [facility] CenterAutomated erythrocyte mean corpuscular hemoglobin concentration measurement (mass/volume)2020-02-02 13:38:00* Test Item Value Reference Range Interpretation Comments Mean Corpuscular Hemoglobin Concent (test code = 786-4) 34.2 31-35 [facility] CenterRDW TafYr-Bkq6802-36-17 13:38:00* Test Item Value Reference Range Interpretation Comments Red Cell Distribution Width (test code = 46780-7) 22.7 11.7 -14.4 [facility] CenterAutomated blood platelet count (count/volume)2020-02-02 13:38:00* Test Item Value Reference Range Interpretation Comments Platelet Count (test code = 777-3) 573 140-360 [facility] CenterAutomated blood segmented neutrophil count as percentage of total ardlwbhltg8278-93-75 13:38:00* Test Item Value Reference Range Interpretation Comments Neutrophils (%) (Auto) (test code = 40256-1) 44.8 38.7-80.0 [facility] CenterAutomated blood lymphocyte count as percentage ot total cmxaibzefa5559-09-96 13:38:00* Test Item Value Reference Range Interpretation Comments Lymphocytes (%) (Auto) (test code = 736-9) 38.6 18.0-39.1 [facility] CenterAutomated blood monocyte count as percentage of total dgqtnkoggv0810-99-29 13:38:00* Test Item Value Reference Range Interpretation Comments Monocytes (%) (Auto) (test code = 5905-5) 13.3 4.4-11.3 [facility] CenterAutomated blood eosinophil count as percentage of total cenpodabsa6352-33-00 13:38:00* Test Item Value Reference Range Interpretation Comments Eosinophils (%) (Auto) (test code = 713-8) 2.0 0.0-6.0 [facility] CenterAutomated blood basophil count as percentage of total ipjtdestlx3832-57-49 13:38:00* Test Item Value Reference Range Interpretation Comments Basophils (%) (Auto) (test code = 706-2) 0.9 0.0-1.0 [facility] CenterFluoroscopic procedure less than one hour vxziiwxf3216-42-14 13:38:00* Test Item Value Reference Range Interpretation Comments IM GRANULOCYTES % (test code = IM GRANULOCYTES %) 0.4 0.0- 1.0 [facility] CenterAutom[facility] blood neutrophil count 2020-02-02 13:38:00* Test Item Value Reference Range Interpretation Comments Neutrophils # (Auto) (test code = 751-8) 5.1 2.1-6.9 [facility] CenterBlood lymphocytes count (number/volume) 2020-02-02 13:38:00* Test Item Value Reference Range Interpretation Comments Lymphocytes # (Auto) (test code = 00357-9) 4.4 1.0-3.2 [facility] CenterBlood monocytes automated count (number/volume)2020-02-02 13:38:00* Test Item Value Reference Range Interpretation Comments Monocytes # (Auto) (test code = 742-7) 1.5 0.2-0.8 [facility] CenterAutomated blood eosinophil count 2020-02-02 13:38:00* Test Item Value Reference Range Interpretation Comments Eosinophils # (Auto) (test code = 711-2) 0.2 0.0-0.4 [facility] CenterAutomated blood basophil count (count/volume)2020-02-02 13:38:00* Test Item Value Reference Range Interpretation Comments Basophils # (Auto) (test code = 704-7) 0.1 0.0-0.1 [facility] CenterFluoroscopic procedure less than one hour pjrrplxx3752-43-54 13:38:00* Test Item Value Reference Range Interpretation Comments Absolute Immature Granulocyte (auto (braden t code = Absolute Immature Granulocyte (auto) 0.05 0-0.1 [facility] CenterUrine color wutvfgkmtvnxt1016-27-75 13:38:00* Test Item Value Reference Range Interpretation Comments Urine Color (test code = 5778-6) YELLOW YELLOW [facility] CenterUrine vksgqqs3298-92-97 13:38:00* Test Item Value Reference Range Interpretation Comments Urine Clarity (test code = 29316-9) CLEAR CLEAR [facility] Center[facility] gravity of Urine by Test strip 2020-02-02 13:38:00* Test Item Value Reference Range Interpretation Comments Urine Specific [place] (test code = 5811-5) 1.020 1.010-1.02 5 [facility] CenterU[facility] pH measurement by automated test itide9465-27-08 13:38:00* Test Item Value Reference Range Interpretation Comments Urine pH (test code = 03198-7) 8.5 5-7 [facility] CenterU[facility] leukocyte esterase detection by iyslamym0938-52-38 13:38:00* Test Item Value Reference Range Interpretation Comments Urine Leukocyte Esterase (test code = 5799-2) NEGATIVE NEGATIVE [facility] CenterUrine nitrite swtarblau0732-99-21 13:38:00* Test Item Value Reference Range Interpretation Comments Urine Nitrite (test code = 41078-7) NEGATIVE NEGATIVE [facility] CenterUrine protein measurement by test strip (mass/volume)2020-02-02 13:38:00* Test Item Value Reference Range Interpretation Comments Urine Protein (test code = 5804-0) NEGATIVE NEGATIVE [facility] CenterUrine glucose ukzuzycjs8627-45-29 13:38:00* Test Item Value Reference Range Interpretation Comments Urine Glucose (UA) (test code = 2349-9) NEGATIVE NEGATIVE [facility] CenterUrine ketones detection by automated test wkzqw5398-27-56 13:38:00* Test Item Value Reference Range Interpretation Comments Urine Ketones (test code = 48958-2) NEGATIVE NEGATIVE [facility] CenterUrine urobilinogen measurement by test strip (mass/volume)2020-02-02 13:38:00* Test Item Value Reference Range Interpretation Comments Urine Urobilinogen (test code = 03457-6) 0.2 0.2-1 [facility] CenterU[facility] total bilirubin measurement (mass/volume)2020-02-02 13:38:00* Test Item Value Reference Range Interpretation Comments Urine Bilirubin (test code = 1978-6) NEGATIVE NEGATIVE [facility] CenterUrine erythrocytes fmpcqtukl5662-55-32 13:38:00* Test Item Value Reference Range Interpretation Comments Urine Blood (test code = 02365-8) TRACE NEGATIVE [facility] CenterAutomated urine sediment leukocyte count by microscopy (number/high power field)2020-02-02 13:38:00* Test Item Value Reference Range Interpretation Comments Urine WBC (test code = 5821-4) 6-10 0-5 [facility] CenterErythrocytes detection in urine sediment by light icxnadiyeh0990-52-07 13:38:00* Test Item Value Reference Range Interpretation Comments Urine RBC (test code = 84837-4) 6-10 0-5 [facility] CenterBacteria detection in urine sediment by light landxcrrxr0991-64-95 13:38:00* Test Item Value Reference Range Interpretation Comments Urine Bacteria (test code = 55062-3) FEW NONE [facility] CenterEpithelial cells detection in urine sediment by light sqqvizqkjk5164-06-92 13:38:00* Test Item Value Reference Range Interpretation Comments Urine Epithelial Cells (test code = 37762-7) FEW NONE [facility] Centererum or plasma sodium measurement (moles/volume)2020-02-02 13:38:00* Test Item Value Reference Range Interpretation Comments Sodium Level (test code = 2951-2) 136 136-145 [facility] Centererum or plasma potassium measurement (moles/volume)2020-02-02 13:38:00* Test Item Value Reference Range Interpretation Comments Potassium Level (test code = 2823-3) 4.4 3.5-5.1 [facility] Centererum or plasma chloride measurement (moles/volume)2020-02-02 13:38:00* Test Item Value Reference Range Interpretation Comments Chloride Level (test code = 2075-0) 104 98-107 [facility] Centererum or plasma carbon dioxide, total measurement (moles/volume)2020-02-02 13:38:00* Test Item Value Reference Range Interpretation Comments Carbon Dioxide Level (test code = 2028-9) 23 22-29 [facility] Centererum or plasma anion und8760-81-07 13:38:00* Test Item Value Reference Range Interpretation Comments Anion Gap (test code = 92020-5) 13.4 8-16 [facility] Centererum or plasma urea nitrogen measurement (mass/volume)2020-02-02 13:38:00* Test Item Value Reference Range Interpretation Comments Blood Urea Nitrogen (test code = 3094-0) 7 7-26 [facility] Centererum or plasma creatinine measurement (mass/volume)2020-02-02 13:38:00* Test Item Value Reference Range Interpretation Comments Creatinine (test code = 2160-0) 1.31 0.72-1.25 [facility] Centererum or plasma urea nitrogen/creatinine mass wlbbg7256-29-15 13:38:00* Test Item Value Reference Range Interpretation Comments BUN/Creatinine Ratio (test code = 3097-3) 5 6-25 [facility] CenterEstimated glomerular filtration rate (GFR) kcpuwmzvjdhxk5139-75-00 13:38:00* Test Item Value Reference Range Interpretation Comments Estimat Glomerular Filtration Rate (test code = 430679657) 60 >60 Ranges were taken from the National Kidney Disease Education Program and the [facility] [employer] literature.Reference ranges:60 or greater: Wtlacd61-37 ( for 3 consecutive months): Chronic kidney disease 15 or less: Kidney failureCarrollton [facility] Medical CenterGlucose aurtnmndqlq5080-84-47 13:38:00* Test Item Value Reference Range Interpretation Comments Glucose Level (test code = IEZ0911) 108 74-118 [facility] Centererum or plasma calcium measurement (mass/volume)2020-02-02 13:38:00* Test Item Value Reference Range Interpretation Comments Calcium Level (test code = 72487-0) 10.0 8.4-10.2 [facility] CenterFluoroscopic procedure less than one hour iorqynll1064-02-72 13:38:00* Test Item Value Reference Range Interpretation Comments Lactic Acid Level (test code = Lactic Acid Level) 1.5 0.5- 2.0 [facility] Centererum or plasma total bilirubin measurement (mass/volume)2020-02-02 13:38:00* Test Item Value Reference Range Interpretation Comments Total Bilirubin (test code = 1975-2) 0.9 0.2-1.2 [facility] CenterFluoroscopic procedure less than one hour jfesowkc7915-75-37 13:38:00* Test Item Value Reference Range Interpretation Comments Aspartate Amino Transf (AST/SGOT) (test code = Aspartate Amino Transf (AST/SGOT)) 40 5-34 [facility] Centererum or plasma alanine aminotransferase measurement (enzymatic activity/volume)2020-02-02 13:38:00* Test Item Value Reference Range Interpretation Comments Alanine Aminotransferase (ALT/SGPT) (test code = 1742-6) 57 0-55 [facility] Centererum or plasma protein measurement (mass/volume)2020-02-02 13:38:00* Test Item Value Reference Range Interpretation Comments Total Protein (test code = 2885-2) 7.0 6.5-8.1 [facility] Centererum or plasma albumin measurement (mass/volume)2020-02-02 13:38:00* Test Item Value Reference Range Interpretation Comments Albumin (test code = 1751-7) 3.6 3.5-5.0 [facility] CenterPlasma globulin measurement (mass/volume) 2020-02-02 13:38:00* Test Item Value Reference Range Interpretation Comments Globulin (test code = 88670-2) 3.4 2.3-3.5 [facility] Centererum or plasma albumin/globulin mass ityrp3835-17-55 13:38:00* Test Item Value Reference Range Interpretation Comments Albumin/Globulin Ratio (test code = 1759-0) 1.1 0.8-2.0 [facility] Centererum or plasma alkaline phosphatase measurement (enzymatic activity/volume)2020-02-02 13:38:00* Test Item Value Reference Range Interpretation Comments Alkaline Phosphatase (test code = 6768-6) 53 40-150 [facility] CenterTroponin I measurement by highly sensitive enzyme ornhzqfhioc5733-32-85 13:38:00* Test Item Value Reference Range Interpretation Comments Troponin I (test code = 35248-4) < 0.001 0-0.300 [facility] Centererum or plasma amylase measurement (enzymatic activity/volume)2020-02-02 13:38:00* Test Item Value Reference Range Interpretation Comments Amylase Level (test code = 1798-8) 75 25-125 [facility] Centererum or plasma lipase measurement (enzymatic activity/volume)2020-02-02 13:38:00* Test Item Value Reference Range Interpretation Comments Lipase (test code = 3040-3) 63 8-78 [facility]- CT ABD PELVIS W/O STOQ8977-08-00 16:37:00 Name: MINE ROUSE [place] [facility] : 1975 Age/S: 44 / M Remi Harry Unit #: [id number] Loc: [place] [address] Phys: Henrry Khanna DO Acct: [id number] Dis Date: Status: REG ER PHONE #: [phone] Exam Date: 01/30/2020 1630 FAX #: [phone] Reason: abd pain/rectal bleeding/recent ileus EXAMS: CPT CODE: [id number] CT ABD PELVIS W/O CONT 79938 REASON FOR EXAM: abd pain/rectal bleeding/recent ileus EXAM ORDER DATE: 01/30/2020 2:17 PM Ordering: Henrry Khanna DO Attending:Henrry Khanna DO Location:[facility] PROCEDURE: - CT ABD PELVIS W/O CONT [...] Alford RT(R) CTDI: DLP: Trnscb Date/Time: 01/30/2020 (163) Ag Orig Print D/T: S: 01/30/2020 (2870) PAGE 1 Signed Report BASIC METABOLIC [id number] 16:17:00* Test Item Value Reference Range Interpretation [...] CA) 8.9 mg/dL 8.5-10.1 N HEPATIC FUNCTION [id number] 16:17:00* Test Item Value Reference Range Interpretation [...] reference range due to change in reagent. [id number] 16:17:00* Test Item Value Reference Range Interpretation Comments LIPASE (test code = LIP) 227 U/L 73.0-393.0 N BASIC METABOLIC NNVBY5232-07-01 16:10:00* Test Item Value Reference Range Interpretation [...] code = CA) mg/dL 8.5-10.1 HEPATIC FUNCTION [id number] 16:10:00* Test Item Value Reference Range Interpretation [...] TOTAL (test code = ALKP) IUnit/L 45-117 YQLLBS5738-31-47 16:10:00* Test Item Value Reference Range Interpretation Comments LIPASE (test code = LIP) U/L 73.0-393.0 CBC W/O [id number] 16:03:00* Test Item Value Reference Range Interpretation [...] MPV) 10.4 fL 6.7-11.0 N CBC W/O [id number] 16:01:00* Test Item Value Reference Range Interpretation [...] code = MPV) fL 6.7-11.0 BASIC METABOLIC [id number] 04:52:00* Test Item Value Reference Range Interpretation [...] CA) 8.0 mg/dL 8.5-10.1 L BASIC METABOLIC [id number] 04:52:00* Test Item Value Reference Range Interpretation [...] CA) 8.0 mg/dL 8.5-10.1 L CBC W/AUTO [id number] 04:50:00* Test Item Value Reference Range Interpretation [...] = MDIFF) NO, ONLY SCAN NEEDED DIFFERENTIAL [id number] 04:50:00* Test Item Value Reference Range Interpretation [...] MORPHOLOGY (test code = PLTMORPH) NORMAL LACTIC [id number] 04:39:00* Test Item Value Reference Range Interpretation Comments LACTIC ACID (test code = LACT) 0.7 mmol/L 0.4-1.9 N CBC W/AUTO [id number] 04:26:00* Test Item Value Reference Range Interpretation [...] = MDIFF) NO, ONLY SCAN NEEDED DIFFERENTIAL [id number] 04:26:00* Test Item Value Reference Range Interpretation Comments STAIN ACCEPTABILITY (test code = STN ACCEPTABLE) CABOT RINGS (test code = CAB) MORPHOLOGY COMMENT (test code = MOC) PLATELET ESTIMATE (test code = PLTEST) PLATELET MORPHOLOGY (test code = PLTMORPH) CBC W/AUTO [id number] 04:26:00* Test Item Value Reference Range Interpretation [...] = MDIFF) NO, ONLY SCAN NEEDED DIFFERENTIAL [id number] 04:26:00* Test Item Value Reference Range Interpretation Comments STAIN ACCEPTABILITY (test code = STN ACCEPTABLE) CABOT RINGS (test code = CAB) MORPHOLOGY COMMENT (test code = MOC) PLATELET ESTIMATE (test code = PLTEST) PLATELET MORPHOLOGY (test code = PLTMORPH) CBC W/AUTO [id number] 04:26:00* Test Item Value Reference Range Interpretation [...] = MDIFF) NO, ONLY SCAN NEEDED DIFFERENTIAL [id number] 04:26:00* Test Item Value Reference Range Interpretation Comments STAIN ACCEPTABILITY (test code = STN ACCEPTABLE) MORPHOLOGY COMMENT (test code = MOC) PLATELET ESTIMATE (test code = PLTEST) PLATELET MORPHOLOGY (test code = PLTMORPH) CBC W/AUTO [id number] 04:26:00* Test Item Value Reference Range Interpretation [...] = MDIFF) NO, ONLY SCAN NEEDED DIFFERENTIAL [id number] 04:26:00* Test Item Value Reference Range Interpretation Comments STAIN ACCEPTABILITY (test code = STN ACCEPTABLE) CABOT RINGS (test code = CAB) MORPHOLOGY COMMENT (test code = MOC) PLATELET ESTIMATE (test code = PLTEST) PLATELET MORPHOLOGY (test code = PLTMORPH) CBC W/AUTO [id number] 04:20:00* Test Item Value Reference Range Interpretation [...] patients history. - CT ABD PELVIS W/O [id number] 21:19:00 Name: [facility] [facility] : 1975 Age/S: 44 / M [address] [facility] Unit #: [id number] Loc: [place] [address] Phys: Raquel De La Rosa NP Acct: [id number] Dis Date: Status: REG ER PHONE #: [phone] Exam Date: 01/25/20202107 FAX #: [phone] Reason: abd pain EXAMS: CPT CODE: [id number] CT ABD PELVIS W/O CONT 13457 HISTORY: Abdominal pain TECHNIQUE: 5 mm axial [...] by CT size criteria. PERITONEUM/OTHER: No intraperitoneal ruchi e air. No intraperitoneal free fluid. BONES/SOFT TISSUES: Mild degen erative changes of the spine, sacral iliac joints, and hips. IMPRESSION: Mildly enlarged appendix without periap pendiceal stranding. Correlate clinically to exclude early/mild appendic itis. Fluid distended distal ileum without transition point, s uspect ileus. 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 CC: Wily Marquez MD; Raquel De La Rosa NP Technologist:Shaan Kumar, RT(R)(CT) CTDI: DLP: Trnscb Date/Time: 01/25/2020 (2118) AngeliP1 Orig Print D/T: S: 01/25/2020 (2121) PAGE 2 Signed Report BASIC METABOLIC [id number] 20:53:00* Test Item Value Reference Range Interpretation [...] CA) 8.7 mg/dL 8.5-10.1 N HEPATIC FUNCTION [id number] 20:53:00* Test Item Value Reference Range Interpretation [...] code = CK) 743 IUnit/L 26-208 H BPSLJM6633-55-98 20:53:00* Test Item Value Reference Range Interpretation Comments LIPASE (test code = LIP) 159 U/L 73.0-393.0 N KCNQMGTC-C2235-36-09 20:53:00* Test Item Value Reference Range Interpretation Comments TROPONIN-I (test code = TROPI) <0.015 ng/mL 0-0.045 N BASIC METABOLIC [id number] 20:27:00* Test Item Value Reference Range Interpretation [...] code = CA) mg/dL 8.5-10.1 HEPATIC FUNCTION [id number] 20:27:00* Test Item Value Reference Range Interpretation [...] (CK) (test code = CK) IUnit/L 26-208 DXEKKF3515-85-05 20:27:00* Test Item Value Reference Range Interpretation Comments LIPASE (test code = LIP) U/L 73.0-393.0 ZHSCPGTO-F8945-77-09 20:27:00* Test Item Value Reference Range Interpretation Comments TROPONIN-I (test code = TROPI) ng/mL 0-0.045 CBC W/O [id number] 20:25:00* Test Item Value Reference Range Interpretation [...] MPV) 9.3 fL 6.7-11.0 N CBC W/O [id number] 20:16:00* Test Item Value Reference Range Interpretation [...] (test code = MPV) fL 6.7-11.0 URINALYSIS PABSMCQL3013-13-06 19:26:00* Test Item Value Reference Range Interpretation [...] MUCU) FEW #/LPF FEW Urine Source? Clean OjcwzNUSJMEREUDEX1182-40-81 07:11:0012.6[facility] SVBCZUHNLVDZ3449-33-54 07:11:35644Jjastpzu VyqwgqbZAFMEVAKVOTO1635-18-11 07:11:0011[facility] PhnrknhXQOIELDBYPDX8805-05-79 07:11:001.31[facility] LZAYRZLZZDPL4760-75-55 07:11:90697Lxlnkngb NfngtoaGFGYOFZLPDQW8613-15-04 07:11:004.6[facility] EsvdlbzZFQEFDVWLUAW1711-99-47 07:11:43902Fyjtmnky [place] PPXTMCWFSLXY9981-55-38 07:11:0023[facility] KmnwpksJLVYBOFHFRHQ3826-77-72 07:11:00 8.9[facility] IylukcbFZNRZWQLXNTJ8028-10-65 07:11:0067[facility]annHEMATOLOGY 2019-06-14 07:11:0016.9[facility] CxjliteEFHGCRDDXN0062-98-64 07:11:005.38[facility] LjjeiymPPHXOSMMTI5251-00-73 07:11:0014.2[facility] PhmawxuJLGQVDELLW8450-81-11 07:11:0043.7[facility] WxwkmcxJLHGKDPMAZ7453-64-29 07:11:0081.3[facility] ERYEJGKIUQ9852-93-73 07:11:00* Test Item Value Reference Range Interpretation Comments MCH (test code = MCH) 26.4 pg 27.0-31.0 [facility] ErvruygWUUKWAORTI1252-85-08 07:11:0032.5[facility] HermannHEMATOLOGY 2019-06-14 07:11:0017.1[facility] HhushxqKQVKKFKPEC6053-44-46 07:11:25818Ibivgnjp TqjafvyLKSWIWAPMY9677-28-44 07:11:008.0[facility] UqgphjcFIMGZHQJJS9963-09-89 07:11:0056.0[facility] TynabrlQSTZJPLNTZ8383-55-12 07:11:0030.0[facility] NWYNHRHYCK5396-64-55 07:11:009.3[facility] TfztykeEGFXHQRFRS2446-85-81 07:11:003.9 [facility] YvxvxhnPZLMIWWBTW5011-58-15 07:11:000.8[facility]annHEMATOLOGY 2019-06-14 07:11:009.4[facility] GnofcbbRZUBQUMUQW1698-46-34 07:11:005.0[facility] SfoigopLXVGQJMDPY2719-89-55 07:11:001.6[facility] LhnafxiZOJNWGBHOU4132-48-43 07:11:000.7[facility] SchqgfhFJRUWCJOQV4574-66-16 07:11:000.1[facility] HermannCHEM WXQXU2078-88-50 05:15:07820Aprxghof HermannCHEM ZSQWZ1523-25-16 05:15:009 [facility]annCHEM HWWSO5606-47-45 05:15:001.18[facility]annCHEM PANEL 2019-06-13 05:15:86782Njnjcrpy HermannCHEM NRQCS0780-45-57 05:15:004.3[facility]annCHEM ZGIZB4778-04-38 05:15:76884Qyztetpg HermannCHEM ZUXFU2009-21-59 05:15:0024[facility]annCHEM LESON4427-20-07 05:15:008.8[facility]annCHEM OLFLL7998-71-48 05:15:0011.3[facility]annCHEM BKKRJ9906-25-70 05:15:0076 [facility]annCHE[facility] YNDRO4398-32-61 05:15:43157Jggzuqri HermannCHEM PANEL 2019-06-13 05:15:009[facility]annCHEM NRSAN5262-56-96 05:15:001.18[facility]annCHEM PIMPU5224-67-84 05:15:50384Lasqdttk HermannCHEM XYAOJ4808-27-34 05:15:004.3[facility]annCHEM BXJIO1749-91-88 05:15:83765Jmhinjlp HermannCHEM VBUWZ6825-04-20 05:15:0024[facility]annCHEM PIEGM8229-98-37 05:15:008.8 [facility]annCHEM VXHMC0300-16-47 05:15:006.3[facility]annCHEM PANEL 2019-06-13 05:15:002.6[facility]annCHEM TGMFJ4489-95-40 05:15:0056[facility]annCHEM CXYBT4354-63-33 05:15:0033[facility]annCHEM LHFPA6687-12-05 05:15:0057[facility]annCHEM FMBJA5582-99-07 05:15:000.2[facility]annCHEM MSGBX8522-08-93 05:15:0011.3[facility]annCHEM QPGCU3410-06-05 05:15:00* Test Item Value Reference Range Interpretation Comments B/C Ratio (test code = B/C Ratio) 8 1 6-25 [facility]annCHEM DXVZE5229-49-99 05:15:003.7[facility] HermannCHEM PANEL 2019-06-13 05:15:00* Test Item Value Reference Range Interpretation Comments A/G Ratio (test code = A/G Ratio) 0.7 1 0.7-1.6 [facility]annCHEM VYFCQ5988-19-97 05:15:0076[facility]annHEMATOLOGY 2019-06-13 05:15:0018.8[facility] TyxniatMRUZYIQLRY8672-15-93 05:15:004.85[facility] LehstwoXFUEHOLQTX3146-42-93 05:15:0013.1[facility] KgxmxytXEEECAMCIZ4856-81-51 05:15:0039.2[facility] JowayinAWPOPNDKVO1085-49-22 05:15:0080.8[facility] DHTDZXHSLW1419-96-44 05:15:00* Test Item Value Reference Range Interpretation Comments MCH (test code = MCH) 26.9 pg 27.0-31.0 [facility] NpphlvqREKNYGNNUJ7985-66-23 05:15:0033.3[facility] HermannHEMATOLOGY 2019-06-13 05:15:0016.7[facility] ZbapxibDDRUDHBAYK5354-82-48 05:15:89674Ugdpylmg VhscfebQAPACXEKJT2028-12-24 05:15:007.5[facility] AxqvodoQEYKBNCOEI1631-14-02 20:50:007.4[facility] RhrlfurYYGXTYHLMT5054-85-91 20:50:00* Test Item Value Reference Range Interpretation Comments Brenda Thornton TND (test code = Vanco Tr TND) 1500 1 [facility] ZucymdfKZLILNNPBU0633-94-21 19:20:000.9[facility] HermannTOXICOLOGY 2019-06-11 19:20:00* Test Item Value Reference Range Interpretation Comments Brenda Thornton TND (test code = Brenda Tr TND) 1330 1 [facility] KpxqfphYIDWEFYVXL2730-70-28 09:44:0022.5[facility]annHEMATOLOGY 2019-06-11 09:44:004.92[facility] IhessbwCJOBAFAFVB6197-44-38 09:44:0013.0[facility] GvknxshSDSRMTECQZ5051-60-31 09:44:0040.2[facility] JvpcgsyWMLYJDHDCI8403-84-64 09:44:0081.5[facility] EhmrgbpPRGJLIEFTF2816-24-74 09:44:00* Test Item Value Reference Range Interpretation Comments MCH (test code = MCH) 26.4 pg 27.0-31.0 [facility] QfidypyISCPBRMELZ7710-39-67 09:44:0032.4[facility] HermannHEMATOLOGY 2019-06-11 09:44:0016.7[facility] SzmtcybVVLXJNYCGY1142-51-85 09:44:60603Wkcdvgmh ZwhgahvXQNXOTACXG1890-02-25 09:44:008.1[facility] JrksxzsISPYVQIBTX5558-70-87 09:44:00Negative *NA*(06/11/19 4:44 AM)[facility] KpvcqvuAOPVBDPYMB1562-48-17 09:44:00Negative *NA*(06/11/19 4:44 AM)[facility] YfdautgHACRMRRYNC5293-25-86 09:44:00Negative *NA*(06/11/19 4:44 AM)[facility] UurctxoKBAPOUTKIL6827-01-32 09:44:00Negative *NA*(06/11/19 4:44 AM)[facility] FzkgsplIYOFIQTSUR9293-70-95 09:44:00Negative *NA*(06/11/19 4:44 AM)[facility]annDRUG WZYDJB3766-90-66 08:00:00Negative *NA*(06/11/19 3:00 AM)[facility]annDR[facility] JATIDX3951-89-06 08:00:00Negative *NA*(06/11/19 3:00 AM)[facility]annDR[facility] FHTEUK9634-33-45 08:00:00Positive *ABN*(06/11/19 3:00 AM)[facility]annDR[facility] CYRLZB5625-99-59 08:00:00Negative *NA*(06/11/19 3:00 AM)[facility]annDR[facility] ZTVQPO2976-48-81 08:00:00Negative *NA*(06/11/19 3:00 AM)[facility]ann[facility] LPTXOP6228-53-38 08:00:00Positive *ABN*(06/11/19 3:00 AM)[facility]annDR[facility] GOKOEE4092-80-18 08:00:00Negative *NA*(06/11/19 3:00 AM)[facility]annDR[facility] SHPERL6357-95-76 08:00:00See Note (06/11/19 3:00 AM)[facility]annDR[facility] QHTZGL4204-58-89 08:00:00 Negative *NA*(06/11/19 3:00 AM)[facility]annDR[facility] WKWPZF6883-26-56 08:00:00 Negative *NA*(06/11/19 3:00 AM)[facility] PENICILLIN:SUSC:PT:ISOLATE:ORDQN:MKH0691-17-25 22:50:00Staphylococcus aureus [facility]annCHEM QRFMM4960-47-24 09:57:001.8[facility]annCHEM PANEL 2019-06-10 09:57:001.9[facility] HermannCHEM FAJWA9264-67-46 04:38:000.9[facility] UwfrcnsTQCOTZRDON8172-93-98 04:38:00Normal (06/09/19 11:38 PM)[facility] JKVGKBTZBH4143-95-72 04:38:00Normal (06/09/19 11:38 PM)[facility]annHEMATOLOGY 2019-06-10 04:38:0075.6[facility] VouxtlkVUVTBYOXFH6278-41-50 04:38:0013.6[facility] BdigibiGJEBNNYGSF0470-96-00 04:38:009.1[facility] DqqlxybEXXYGMXEZX4504-84-08 04:38:001.4[facility] CaypweuWKCWZKORAI9839-39-54 04:38:000.3[facility] YULZRFVEBQ9244-84-54 04:38:0018.7[facility] HkjdluqAJWHKAYFPK1901-95-99 04:38:00 3.4[facility] KxdjerxFJPRHGBJVL7912-33-20 04:38:002.2[facility] HermannHEMATOLOGY 2019-06-10 04:38:000.3[facility] EcbkegsLIEGCOVCSA3889-28-24 04:38:000.1[facility]annBLOOD BANK QTFHTHH8394-59-78 04:35:00Negative (06/09/19 11:35 PM)[facility] W/O DUOQ1173-87-24 01:31:00 Name: [facility] : 1975 Age/S: 43 / M [address] [facility] Unit #: [id number] Loc: [place] [address] Phys: Raquel De La Rosa NP Acct: [id number] Dis Date: Status: REG ER PHONE #: [phone] Exam Date: 05/24/2019 0111 FAX #: [phone] Reason: ABD PAIN EXAMS: CPT CODE: [id number] CT ABD PELVIS W/O CONT 57612 AFTER HOURS SERVICE ON: 05/24/2019 1:[address] Scan of the Abdomen and Pelvis Without Contrast Location Code M12 History: ABD PAIN Technique: Axial and reconstructed coronal scans were performed on a helical scanner pre oral and IV contrast. Study is limited secondary to lack of oral and IV contrast. One or more of the following dose reduction techniques were used: Automated exposure control, adjustment of the mA and/or kV according to patient size, and/or utilization of iterative reconstruction technique. 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 Gallbladder, pancreas and liver are within normal limits. There are no peripancreatic inflammatory changes. Adrenal glands are unremarkable. There is a [...] 1 Signed Report (CONTINUED) Name: [facility] [place] : 1975 Age/S: 43 / M [address] [facility] Unit #: [id number] Loc: [place] [address] Phys: Raquel De La Rosa NP ct: [id number] Dis Date: Status: REG ER PHONE #: [phone] Exam Date: 05/24/2019 0111 FAX #: [phone] Reason: ABD PAIN EXAMS: CPT CODE: [id number] ABD PELVIS W/O CONT 23280 <Continued > at 0131 Reported and signed by: Alanna Sprague M.D. CC: Raquel De La Rosa NP; Fatuma Nash MD Technologist:ANJALI GALLARDO CT CTDI: DLP: Trnscb Date/Time: 05/24/2019 (130) JamaalMA50 Orig Print D/T: S: 05/24/2019 (134) PAGE 2 Signed Report CBC W/O [id number] 01:09:00* Test Item Value Reference Range Interpretation [...] MPV) 9.5 fL 6.7-11.0 N CBC W/O AHSQ4174-22-72 01:08:00* Test Item Value Reference Range Interpretation [...] (test code = MPV) fL 6.7-11.0 URINALYSIS JXUPCYRH8323-54-17 01:00:00* Test Item Value Reference Range Interpretation [...] AMORU) FEW #/LPF Urine Source? Clean CatchURINALYSIS ZGHSMQFS3101-65-70 00:51:00* Test Item Value Reference Range Interpretation [...] HPF NONE Urine Source? Clean CatchBASIC METABOLIC DIACO9633-81-21 00:47:00* Test Item Value Reference Range Interpretation [...] CA) 9.1 mg/dL 8.5-10.1 N HEPATIC FUNCTION WRRZF0954-68-02 00:47:00* Test Item Value Reference Range Interpretation [...] reference range due to change in reagent. JIHOEI6433-55-46 00:47:00* Test Item Value Reference Range Interpretation Comments LIPASE (test code = LIP) 193 U/L 73.0-393.0 N QQGPCFRL-L9973-64-06 00:47:00* Test Item Value Reference Range Interpretation Comments TROPONIN-I (test code = TROPI) <0.015 ng/mL 0-0.045 N BASIC METABOLIC SLZBA6525-95-63 00:36:00* Test Item Value Reference Range Interpretation [...] code = CA) mg/dL 8.5-10.1 HEPATIC FUNCTION PEOVZ4050-61-14 00:36:00* Test Item Value Reference Range Interpretation [...] TOTAL (test code = ALKP) IUnit/L 45-117 OLMIGV9199-68-03 00:36:00* Test Item Value Reference Range Interpretation Comments LIPASE (test code = LIP) U/L 73.0-393.0 MDOJXKME-F3618-85-06 00:36:00* Test Item Value Reference Range Interpretation Comments TROPONIN-I (test code = TROPI) ng/mL 0-0.045 PQOFCBGEHN1804-01-05 09:40:0010.1[facility] EbyocoqYEMFNWFMHW9997-86-04 09:40:00 19.9[facility] QgauunsGPAKGGVERH9771-70-15 09:40:0054.9[facility] HermannHEMATOLOGY 2017-12-15 09:40:009.8[facility] HklxnmhGVKCUYKHXT3641-80-43 09:40:0015.3[facility] MlivfbrWXFMGCRESN8686-18-02 09:40:000.1[facility] AkhwztoTQEQSHOLBM4773-93-01 09:40:003.7[facility] VudovonIUPWOMYGRK9573-57-57 09:40:001.8[facility] HYLDWXJTPO6261-88-74 09:40:002.8[facility] FccvtahOJCTFHGWQY7356-75-97 09:40:000.0 [facility] HkpysfgOHHYFAMCMO8174-93-60 09:40:008.1[facility]annHEMATOLOGY 2017-12-15 09:40:00* Test Item Value Reference Range Interpretation Comments MCH (test code = MCH) 29.1 pg 27.0-31.0 [facility] XaiwxfdRKTIHPIWEU5433-63-98 09:40:0034.4[facility]annHEMATOLOGY 2017-12-15 09:40:0015.8[facility] YishgjnIPPKUYVTJO8371-87-22 09:40:43888Mjcbevhd VxihigwTOVYPXFIOR7728-23-44 09:40:0084.5[facility] HwnyqujCJXVMUOPKS8137-03-97 09:40:0018.4[facility] VkayizeWCUQWYTZWD4121-65-16 09:40:008.7[facility] ICWJHVQNKL9031-89-59 09:40:003.00[facility] SwalfclRYTRNSQGYO8687-84-32 09:40:00 25.3[facility] TodkkzeQMTDERUOTH9547-15-74 09:40:0011.6[facility]annHEMATOLOGY 2017-12-15 09:40:0015.1[facility] AwaytdeWRNOUAVWGN7345-22-66 09:40:000.7[facility] XlsfyjpGEVSSTWGNX9170-79-24 09:40:0052.6[facility] SpqsqlcCJTNYULXUI3307-61-78 09:40:0020.0[facility] HermannCHEM CGVFX3800-23-19 09:28:0088[facility] HermannCHEM FVXLR4452-54-88 09:28:0099[facility]annCHEM QNCHT1194-77-54 09:28:0016 [facility]annCHEM QXCRI1540-51-37 09:28:13030Fdrwtaen HermannCHEM PANEL 2017-12-14 09:28:000.90[facility] HermannCHEM TQMAU8697-37-18 09:28:008.8[facility] HermannCHEM ONBZL8296-21-07 09:28:0027[facility]annCHEM DBMXI1096-92-87 09:28:89986Ozmkrctr HermannCHEM UGQEE4216-44-97 09:28:003.7[facility]annCHEM SNZNT1511-97-24 09:28:0012.7[facility] ZfafwdjOGVWVABJTF1486-31-22 09:28:008.0 [facility] PvblozmKBXCRKULUA4099-95-68 09:28:96602Inlmgjga HermannHEMATOLOGY 2017-12-14 09:28:0015.4[facility] TvtnbtoTSKIGEHYAY0462-11-82 09:28:0031.2[facility] FxtfklgPPXQWIAZQL4115-87-99 09:28:00* Test Item Value Reference Range Interpretation Comments MCH (test code = MCH) 27.0 pg 27.0-31.0 [facility] OptophpSQRCAFXVCS2966-30-47 09:28:0026.6[facility]annHEMATOLOGY 2017-12-14 09:28:0086.6[facility] XzoecsgHYJNQYRUUU8372-37-78 09:28:008.3[facility] XgxvfmxXJKWVHPRVX4264-07-23 09:28:003.07[facility] TlpffmwEQQQQWNERR7718-06-85 09:28:0019.5[facility] MnoxfpmAIXDRCQRMK7257-11-54 09:28:00Moderate *ABN*(12/14/17 4:28 AM)[facility] SngsdepCNDHUPACYS5442-44-04 09:28:0056.0[facility] SECNCWUHDG1358-57-18 09:28:001.0[facility] PacycziLPKFMYFQOQ2978-04-18 09:28:002.0 [facility] YbaydsjIOVLPYHEUD2513-90-19 09:28:002.1[facility]annHEMATOLOGY 2017-12-14 09:28:00Normal (12/14/17 4:28 AM)[facility] DuuquluZDLAONYHRB1669-40-28 09:28:004.3[facility] MmtopjfSOBPRFGDQM3427-12-33 09:28:0021.0[facility] SFOJOLOKVQ2627-10-24 09:28:0011.0[facility] YshlkqmKVOVBBSBRX0765-72-01 09:28:00 1.0[facility] MdicgudTOUCZMANMK7647-58-01 09:28:0010.0[facility]annHEMATOLOGY 2017-12-14 09:28:0011.1[facility]annCHEM QEHPB7799-81-60 09:43:003.0[facility]annCHEM OYNSR8602-46-44 09:43:002.0[facility] YxwicebKBGMIMZDUCQD3126-53-30 09:43:0011.9[facility] DokmklyLUSSFMSYPVXZ6302-55-90 09:43:0084[facility] SFIDVDCRBJMK6778-30-36 09:43:0018[facility] FsshthiNRLIKRSBYRKH6722-18-35 09:43:00 87[facility] IlzlwneUKCKEPOCAOTN1709-32-11 09:43:003.9[facility] HermannELECTROLYTES 2017-12-13 09:43:001.10[facility] DbkbjrkVNPBURLYPBJG7779-49-88 09:43:43608 [facility] HxczhliHCVUJXFYOYPM7614-64-49 09:43:0098[facility]annELECTROLYTES 2017-12-13 09:43:008.8[facility] ZdrcjbtXBFZTLATBTGJ9271-08-14 09:43:0029[facility] IxpcrdtJCMOZRKXYY8066-69-54 09:43:00* Test Item Value Reference Range Interpretation Comments INR (test code = INR) 1.10 1 0.85-1.17 [facility] TnxwjlmBJAJCTOITQ4498-46-15 09:43:00* Test Item Value Reference Range Interpretation Comments PT (test code = PT) 14.2 s 12.0-14.7 [facility] OujwpnpBTIOPHWRPC5269-58-94 09:43:00* Test Item Value Reference Range Interpretation Comments PTT (test code = PTT) 35.0 s 22.9-35.8 [facility] WizvswtJTSFVSMAVT7674-48-54 09:43:000.1[facility]HE[facility]OLOGY 2017-12-13 09:43:001.5[facility] QbfcmesHVADTTOVOT0576-14-61 09:43:001.7[facility] UyemfssTZEKULMXZT8687-78-60 09:43:0011.5[facility] YcwkinfQWJBRKZNYA3319-26-92 09:43:000.4[facility] QuknsaxQAYXDKIUZY6264-47-57 09:43:002.2[facility] FZHDAUHTZO6735-34-54 09:43:008.0[facility] HfzeemuCEHLVEXYFE8628-92-47 09:43:83476 [facility] LyavjgpDHOSFPZLIH5185-63-04 09:43:0015.4[facility]annHEMATOLOGY 2017-12-13 09:43:0033.5[facility] IcdyuxjYQITIVHJBH8300-43-77 09:43:00* Test Item Value Reference Range Interpretation Comments MCH (test code = MCH) 28.7 pg 27.0-31.0 [facility] UhradtpRFDRZMOVGT7053-96-35 09:43:002.99[facility]annHEMATOLOGY 2017-12-13 09:43:0085.6[facility] VcxxypxQJMGXNXHDM9907-88-65 09:43:008.6[facility] DwqpallNJCJPDSIPG1616-39-01 09:43:0017.1[facility] SgszyyvPZDNCNGNWA1872-72-10 09:43:0025.6[facility] VkbykclGUVWYRCWGP9884-72-62 09:43:001.0[facility] IWAWIBOKQQ6914-50-83 09:43:002.1[facility] MbkwpclNARYUBBONC5682-74-96 09:43:00 Moderate *ABN*(12/13/17 4:43 AM)[facility] BumdlclMOMLQYFZIH7018-18-37 09:43:000.0 [facility] RvaoyuaBXMCKGZMUF5660-64-87 09:43:00Normal (12/13/17 4:43 AM)[facility] NawxkofBPOXSHOJBU9711-50-25 09:43:0012.0[facility] AvnczvqQVOWQQGNNK8242-56-99 09:43:001.9[facility] KxzleabNJFXZGBOOB4875-17-69 09:43:001.2[facility] PARATHYROID VWCNFJC5252-14-99 09:43:001.07[facility] HermannPARATHYROID PROFILE 2017-12-13 09:43:001.10[facility] HermannCHEM IWRNF9497-77-31 07:16:002.0[facility] HermannCHEM GWACE0457-44-99 07:16:003.0[facility] BguumjtTDABTZULVKGY0737-57-97 07:16:0013.3[facility] UypytszZBSHHYTBVZAQ8826-86-12 07:16:0068[facility] JVVCMVTEHAVH3649-14-97 07:16:008.9[facility] ZtsgnlpMXYPWXZNSLYJ0370-84-58 07:16:0019[facility] XyqpwveMLASMHVGUZIA1448-74-27 07:16:0097[facility] ALAIQZTLNHAR9902-23-35 07:16:003.3[facility] FdpxaanKDHKTHPROYEM1114-62-46 07:16:0033[facility] DqwedioFXRAVPFHMUDU3288-36-45 07:16:59160Elpjlehj [facility] FXCDZFKOWGHV3135-51-69 07:16:0092[facility] JtwtvjxPHEUCNHLCRYE3478-11-46 07:16:00 1.30[facility] RjsvbofDTDBYCCEWL3874-75-58 07:16:00* Test Item Value Reference Range Interpretation Comments PTT (test code = PTT) 40.2 s 22.9-35.8 [facility] FvglaunXECMARXARY4595-16-37 07:16:00* Test Item Value Reference Range Interpretation Comments INR (test code = INR) 1.26 1 0.85-1.17 [facility] WvnsjslUMFJTQUZWF4399-70-95 07:16:00* Test Item Value Reference Range Interpretation Comments PT (test code = PT) 15.9 s 12.0-14.7 [facility] VkcxtvuMDSDRLWRJL0981-66-80 07:16:000.1[facility] HermannPARATHYROID HBNTDDZ8317-58-89 07:16:001.10[facility] HermannPARATHYROID DLJENND7667-69-11 07:16:001.06[facility] GtphmxjAAXJESZRTI8883-56-00 08:17:001[facility] RSIAOWBSJV0771-91-15 08:17:00Normal (12/11/17 3:17 AM)[facility] 2017-12-11 08:17:00Normal (12/11/17 3:17 AM)[facility] YtiimemWQBORBGDXR7938-89-91 08:17:002.0[facility] OajidxwIMRIRJELWW2825-67-38 08:17:000.0[facility] GPJDK7261-02-40 23:58:00<=1.0[facility] [id number] 23:58:78046Bcddsktu HermannURINE AND DNGYZ0480-44-12 23:58:001[facility] URINE AND LBKRK3379-55-57 23:58:001[facility] EYLJS1037-51-19 23:58:00Small *ABN*(12/10/17 6:58 PM)[facility] [id number] 23:58:00Negative *NA*(12/10/17 6:58 PM)[facility] [id number] 23:58:00Negative (12/10/17 6:58 PM)[facility] [id number] 23:58:00Clear (12/10/17 6:58 PM)[facility] [id number] 23:58:00* Test Item Value Reference Range Interpretation Comments UA pH (test code = UA pH) 7.0 1 5.0-8.0 [facility] [id number] 23:58:00* Test Item Value Reference Range Interpretation Comments UA Spec Grav (test code = UA Spec Grav) 1.009 1 [facility] [id number] 23:58:00Negative (12/10/17 6:58 PM) [facility]annCHEM [id number] 18:21:00* Test Item Value Reference Range Interpretation Comments Procalcitonin Lvl (test code = Procalcitonin Lvl) 4.32 1 <=0. 10 [facility]annCHEM [id number] 07:59:001.5[facility] HermannPARATHYROID MNAHGLB5327-67-54 07:59:001.06[facility] HermannPARATHYROID IZDZJWH7681-04-13 07:59:001.00[facility]annCHEM VTZNU5211-92-39 18:40:003.3[facility] DMBBLUFXAI3451-73-35 18:40:00* Test Item Value Reference Range Interpretation Comments PTT (test code = PTT) 30.7 s 22.9-35.8 [facility] TxqsjqnLBSTESHUXM5514-77-09 18:40:00* Test Item Value Reference Range Interpretation Comments INR (test code = INR) 1.20 1 0.85-1.17 [facility]MhhjzocTGKAICZERU2859-10-72 18:40:00* Test Item Value Reference Range Interpretation Comments PT (test code = PT) 15.3 s 12.0-14.7 [facility] BANK [id number] 08:49:00Product available 3(12/09/17 3:49 AM)[facility]CHE[facility] VTFZP7673-13-69 08:00:000.2[facility]annCHEM KSIIO1718-32-58 08:00:002.7[facility]annCHEM HCMIH8450-60-22 08:00:0048 [facility] HermannCHEM HNFDC5917-91-81 08:00:0032[facility]annCHEM PANEL 2017-12-09 08:00:00* Test Item Value Reference Range Interpretation Comments A/G Ratio (test code = A/G Ratio) 0.8 1 0.7-1.6 [facility]annCHE[facility] [id number] 08:00:0027[facility]annCHEM PANEL 2017-12-09 08:00:002.1[facility]annCHEM JSJKZ7766-85-48 08:00:004.8[facility]annCHEM XFRAX9977-23-06 08:00:00* Test Item Value Reference Range Interpretation Comments B/C Ratio (test code = B/C Ratio) 13 1 6-25 [facility] HermannCHEM [id number] 20:50:001.3[facility]annCHEM PANEL 2017-12-08 20:50:00* Test Item Value Reference Range Interpretation Comments Procalcitonin Lvl (test code = Procalcitonin Lvl) 0.08 1 <=0. 10 [facility] QifcvowOXPBFNMOAR5644-12-97 20:50:13574Cuttbxtf HermannCHEM PANEL 2017-12-08 15:30:0039[facility] HermannCHEM DEOZM9671-34-86 15:30:0035[facility]annCHEM IMMCA0430-00-26 15:30:000.5[facility]annCHEM DHZUO9330-84-29 15:30:00* Test Item Value Reference Range Interpretation Comments A/G Ratio (test code = A/G Ratio) 0.9 1 0.7-1.6 [facility]annCHEM [id number] 15:30:002.9[facility]annCHEM PANEL 2017-12-08 15:30:002.5[facility]annCHEM [id number] 15:30:0027[facility]annCHEM WBPZX3180-67-47 15:30:00* Test Item Value Reference Range Interpretation Comments B/C Ratio (test code = B/C Ratio) 9 1 6-25 [facility]annCHEM MOIEY8220-28-91 15:30:005.4[facility]annCHEM PANEL 2017-12-08 15:30:002.5[facility] HermannCARDIAC EZHQBYC5653-28-10 15:23:00<0.02 [facility] RbfgqvxQKMDKCCPNI0583-69-37 15:23:32077Gwiqequx HermannBLOOD BANK EIYHYRC3520-12-03 14:08:00Product available (12/08/17 9:08 AM)[facility] BLOOD BANK [id number] 14:03:00Product available (12/08/17 9:03 AM)[facility] EeskqbnVTBCSDBSBX4988-54-31 13:12:004.8[facility] JawpeznMAIWCLCXOQ7201-84-83 13:12:001.3[facility] StmnwoiLKXZIORSSI3062-61-95 13:12:00Negative *NA*(12/08/17 8:12 AM)[facility] JhskbgaTLIATSPJGM9361-05-94 13:12:001.7[facility] HermannCHEM NYEPY1500-72-25 11:45:001.5[facility] HermannCHEM JDWOK5687-54-16 11:45:000.5 [facility]CHE[facility] YDCMY2565-76-35 11:45:005.0[facility]annCHEM PANEL 2017-12-08 11:45:002.4[facility] HermannCHEM IJYZH4243-27-82 11:45:00* Test Item Value Reference Range Interpretation Comments B/C Ratio (test code = B/C Ratio) 13 1 6-25 [facility]annCHE[facility] [id number] 11:45:0034Memorioh HermannCHEM PANEL 2017-12-08 11:45:0019[facility] HermannCHEM ALQJT0285-03-68 11:45:0020Metxrioh HermannCHEM IBVBW8228-99-20 11:45:00* Test Item Value Reference Range Interpretation Comments A/G Ratio (test code = A/G Ratio) 0.9 1 0.7-1.6 [facility]2018-03-23 11:45:002.6[facility] 2017-12-08 11:45:00Normal (12/08/17 6:45 AM)[facility]ZqychhmEQMMQCUSJZ4020-78-52 11:45:00* Test Item Value Reference Range Interpretation Comments Max Amplitude Rapid (test code = Max Amplitude Rapid) 57 mm 52-71 [facility] CenterMxrjpswLFEGAKWLES7097-67-54 11:45:006.6[facility] 2017-12-08 11:45:00* Test Item Value Reference Range Interpretation Comments Split Point Rapid (test code = Split Point Rapid) 0.6 min [facility] CenterLaowbnhAGYSQHIDID1171-02-54 11:45:002.9[facility]HE[facility] 2017-12-08 11:45:00* Test Item Value Reference Range Interpretation Comments R-time Rapid (test code = R-time Rapid) 0.7 min 0.4-0.7 [facility] CenterZziipssTSLNFRKIFR5153-07-44 11:45:00* Test Item Value Reference Range Interpretation Comments Angle Rapid (test code = Angle Rapid) 73 degrees 64-80 [facility] CenterAtghvbpOTSEOEVGAO5131-24-11 11:45:00* Test Item Value Reference Range Interpretation Comments K-time Rapid (test code = K-time Rapid) 1.4 min 0.6-2.3 [facility] UnmvmsoRUTXCAJWZX8010-50-24 11:45:00* Test Item Value Reference Range Interpretation Comments ACT (TEG) Rapid (test code = ACT (TEG) Rapid) 113 s 86-118 [facility]annBLO[facility] BANK YFFFNJQ6592-96-32 10:41:00Product available (12/08/17 5:41 AM)[facility]annBL[facility]OD BANK [id number] 10:41:00Product available 2(12/08/17 5:41 AM)[facility]annBL[facility]OD BANK [id number] 10:41:00Product available (12/08/17 5:41 AM)[facility] HermannBACTERIAL - VGKKGPAG4390-90-11 09:27:00Negative (12/08/17 4:27 AM)[facility] HermannBACTERIAL - YUOHIKWX3708-48-34 09:27:00Urine *NA*(12/08/17 4:27 AM)[facility]annCARDIAC JRTGQIT4180-64-38 09:27:00<0.02[facility] PqncpktFOELUDDQKH5932-92-03 09:27:76913Cfnwuboo Jonnie EPOLFHCBUI1366 09:27:000.45[facility] JcubttzSWICOMUOOK1155-71-01 09:27:00< 1.3[facility] TslwyskILPWSFYCES9999-39-50 09:27:00Not Detected (12/08/17 4:27 AM) [facility] SyichcwWJORWUNPNX7854-09-99 09:27:00Positive *ABN*(12/08/17 4:27 AM) [facility] IEDGZ5722-46-23 07:30:0050[facility] AND TVHWZ0099-88-85 07:30:002.0[facility] AND DUYLK0369-37-94 07:30:00 Small *ABN*(12/08/17 2:30 AM)[facility] KPXOH5942-39-54 07:30:00 Negative *NA*(12/08/17 2:30 AM)[facility] RFNFN6338-02-14 07:30:00 6[facility] [id number] 07:30:00* Test Item Value Reference Range Interpretation Comments UA Spec Grav (test code = UA Spec Grav) 1.021 1 [facility] [id number] 07:30:00Slight *ABN*(12/08/17 2:30 AM) [facility] OZCRI9033-73-75 07:30:00* Test Item Value Reference Range Interpretation Comments UA pH (test code = UA pH) 5.0 1 5.0-8.0 [facility] [id number] 07:30:00Negative (12/08/17 2:30 AM) [facility] RDAWO5893-74-65 07:30:001[facility] BFRHQ4557-96-15 07:30:00Negative (12/08/17 2:30 AM)[facility] HermannBLOOD BANK ZDLKFCQ6072-86-53 06:28:00Product available 1(12/08/17 1:28 AM)[facility] BACTERIAL - BBVETJZD6332-07-13 04:11:00Negative (12/07/17 11:11 PM)[facility] HermannDRUG WBVUOV4941-20-19 04:11:00Negative *NA*(12/07/17 11:11 PM)[facility] HermannDRUG ADRXGJ0337-93-85 04:11:00Negative *NA*(12/07/17 11:11 PM)[facility] HermannDRUG QAKVVC1123-72-47 04:11:00Negative *NA*(12/07/17 11:11 PM)[facility] HermannDRUG WJUMJE5823-29-17 04:11:00Negative *NA*(12/07/17 11:11 PM)[facility]annDRUG GVVRXX6612-56-81 04:11:00Negative *NA*(12/07/17 11:11 PM)[facility]annDRUG PYSQZE8671-68-22 04:11:00Positive *ABN*(12/07/17 11:11 PM)[facility] HermannDRUG SWEGTT5079-12-97 04:11:00Negative *NA*(12/07/17 11:11 PM)[facility] HermannDRUG UDGLHS6652-39-60 04:11:00See Note (12/07/17 11:11 PM)[facility] BLO[facility] B[facility] MGGCLWB5107-90-72 04:04:00Negative (12/07/17 11:04 PM)[facility] CARDIAC ZAYRBNA8707-21-14 04:04:003[facility]annCARDIAC SLOUJFI9162-60-84 04:04:00<0.02[facility] HermannCHEM VRSNW5412-60-79 04:04:00<0.05[facility] FYXFJT9499-86-02 04:04:00* Test Item Value Reference Range Interpretation Comments VLDL (test code = VLDL) 25 1 [facility] HeemrpfWMAPXG6872-28-16 04:04:0095[facility] HkksrabDAHVGB4156-08-62 04:04:57634Blwkemge GbghobsNDLMMV2498-26-04 04:04:0015[facility] HermannLIPIDS 2017-12-08 04:04:00* Test Item Value Reference Range Interpretation Comments CHD Risk (test code = CHD Risk) 9.00 1 4.00-7.30 [facility] YmsvyqoOPBCIL7555-88-99 04:04:80488Mvgkgoqm [facility] HospitalannSPECIAL CHEMISTRY 2017-12-08 04:04:005.1[facility]
[2020-02-24] MEDS ORDERED: MORPHINE SULFATE INJ 4 MG/ML INJ 1ML IV STA ×2 (02:22→04:52)
[2020-02-24] MEDS ORDERED: SODIUM CHLORIDE 0.9% 1000ML 1,000 ML IV STA (02:22)
[2020-02-24] MEDS ORDERED: ONDANSETRON HCL INJ 2MG/ML 2ML 2 MG/ML VIAL IV STA (02:22)
--- NOTE | 2020-02-24 02:25 | Emergency Department Note ---
History of Present Illnes History of Present Illness Chief Complaint: Abdominal Complaints History of Present Illness This is a 44 year old male presents to the ED for LUQ/LLQ pain of 1 week duration. Denies f/v but reports n/c. PMH of polycythemia vera with PSH of splenectomy . Historian: Patient Arrival Mode: Car Onset (how long ago): week(s) (1) Radiation: abdomen Severity: moderate Duration (how long): week(s) (1) Timing of current episode: intermittent Progression: worsening Chronicity: recurrent Relieving factors: rest Exacerbating factors: movement Associated symptoms: fever/chills, nausea/vomiting Treatments prior to arrival: none Previous service: medications given, tests performed, one or more referrals, re-evaluation Past Medical/Family History Physician Review I have reviewed the patient's past medical and family history. Any updates have been documented here. Past Medical History Recent Fever: No Clinical Suspicion of Infectio: No New/Unexplained Change in Ment: No Past Medical History: GERD Other Medical History: POLYCYTHEMIA H pylori Past Surgical History: T&A Other Surgery: SPLENECTOMY TESTICULAR SURGERY A CHILD. Social History Smoking Cessation: Never Smoker Alcohol Use: None Any Illegal Drug Use: No Review of Systems Review of Systems Constitutional: chills EENTM: no symptoms Cardiovascular: no symptoms Respiratory: no symptoms Gastrointestinal: abdominal pain, nausea, other (hematochezia) Genitourinary: no symptoms Musculoskeletal: no symptoms Neurological: no symptoms Psychological: no symptoms Endocrine: no symptoms Hematological/Lymphatic: no symptoms Review of other systems All other systems reviewed and negative. Physical Exam Related Data Allergies: Coded Allergies: iodine (Verified Allergy, Severe, 02/02/20) cephalexin (Verified Allergy, Unknown, 02/24/20) Triage Vital Signs Vital Signs Date Time Temp Pulse Resp B/P (MAP) Pulse Ox O2 Delivery O2 Flow Rate FiO2 02/24/20 02:15 100 28 150/99 100 Vital signs reviewed: Yes Physical Exam CONSTITUTIONAL Constitutional: well-developed, well-nourished HENT HENT: normocephalic, atraumatic, oropharynx clear/moist, nose normal HENT L/R: left ext ear normal, right ext ear normal EYES Eyes: PERRL, conjunctivae normal NECK Neck: ROM normal PULMONARY Pulmonary: effort normal, breath sounds normal CARDIOVASCULAR Cardiovascular: regular rhythm, heart sounds normal, capillary refill normal, normal rate GASTROINTESTINAL Abdominal: soft, tender (LLQ pain) GENITOURINARY Genitourinary: exam deferred SKIN Skin: warm, dry MUSCULOSKELETAL Musculoskeletal: ROM normal NEUROLOGICAL Neurological: alert, oriented x 3, no gross motor or sensory deficits PSYCHOLOGICAL Psychological: mood/affect normal, judgement normal Results Laboratory Laboratory Laboratory Tests Test 02/24/20 05:13 02/24/20 03:30 02/24/20 02:23 Lactic Acid Level 1.0 mmol/L (0.5-2.0) White Blood Count 22.07 x10e3/uL (4.8-10.8) Red Blood Count 6.22 x10e6/uL (4.3-5.7) Hemoglobin 16.8 g/dL (14.0-18.0) Hematocrit 49.2 % (38.2-49.6) Mean Corpuscular Volume 79.1 fL (81-99) Mean Corpuscular Hemoglobin 27.0 pg (28-32) Mean Corpuscular Hemoglobin Concent 34.1 g/dL (31-35) Red Cell Distribution Width 24.2 % (11.7-14.4) Platelet Count 583 x10e3/uL (140-360) Neutrophils (%) (Auto) 46.8 % (38.7-80.0) Lymphocytes (%) (Auto) 36.1 % (18.0-39.1) Monocytes (%) (Auto) 14.1 % (4.4-11.3) Eosinophils (%) (Auto) 1.7 % (0.0-6.0) Basophils (%) (Auto) 0.7 % (0.0-1.0) Neutrophils # (Auto) 10.3 (2.1-6.9) Lymphocytes # (Auto) 8.0 (1.0-3.2) Monocytes # (Auto) 3.1 (0.2-0.8) Eosinophils # (Auto) 0.4 (0.0-0.4) Basophils # (Auto) 0.2 (0.0-0.1) Absolute Immature Granulocyte (auto 0.14 x10e3/uL (0-0.1) Urine Color Yellow (YELLOW) Urine Clarity Cloudy (CLEAR) Urine pH 8.5 (5 - 7) Urine Specific [place] 1.020 (1.010-1.025) Urine Protein Trace (NEGATIVE) Urine Glucose (UA) 1+ (NEGATIVE) Urine Ketones Negative (NEGATIVE) Urine Blood Negative (NEGATIVE) Urine Nitrite Negative (NEGATIVE) Urine Bilirubin Negative (NEGATIVE) Urine Urobilinogen 0.2 mg/dL (0.2 - 1) Urine Leukocyte Esterase Negative (NEGATIVE) Urine RBC 0-5 /HPF (0-5) Urine WBC 0-5 /HPF (0-5) Urine Epithelial Cells Few /LPF (NONE) Urine Amorphous Sediment Many (FEW) Urine Bacteria Many /HPF (NONE) Urine Coarse Granular Casts 1-5 (0) Sodium Level 141 mmol/L (136-145) Potassium Level 3.9 mmol/L (3.5-5.1) Chloride Level 107 mmol/L (98-107) Carbon Dioxide Level 24 mmol/L (22-29) Anion Gap 13.9 mmol/L (8-16) Blood Urea Nitrogen 8 mg/dL (7-26) Creatinine 1.38 mg/dL (0.72-1.25) Estimat Glomerular Filtration Rate 57 ML/MIN (60-) BUN/Creatinine Ratio 6 (6-25) Glucose Level 81 mg/dL (74-118) Calcium Level 8.7 mg/dL (8.4-10.2) Total Bilirubin 0.8 mg/dL (0.2-1.2) Aspartate Amino Transf (AST/SGOT) 54 IU/L (5-34) Alanine Aminotransferase (ALT/SGPT) 90 IU/L (0-55) Alkaline Phosphatase 68 IU/L (40-150) Creatine Kinase 828 IU/L (30-200) Creatine Kinase MB 1.80 ng/mL (0-5.0) Troponin I < 0.001 ng/mL (0-0.300) B-Type Natriuretic Peptide < 10.0 pg/mL (0-100) Total Protein 7.0 g/dL (6.5-8.1) Albumin 3.8 g/dL (3.5-5.0) Globulin 3.2 g/dL (2.3-3.5) Albumin/Globulin Ratio 1.2 (0.8-2.0) Amylase Level 84 U/L (25-125) Lipase 94 U/L (8-78) Lab results reviewed: Yes Imaging Imaging results reviewed: Yes Impressions [place] [id number] Patient Name: MINE ROUSE MR #: [id number] : 1975 Age/Sex: 44/M Req #: [id number] Adm Physician: Ordered by: SHUKRI JENKINS DO Report #: [id number] Location: ER Room/Bed: Procedure: CT/CT ABDOMEN/PELVIS W Exam Date: Exam Time: REPORT STATUS: Signed CT Abdomen And Pelvis with Intravenous Contrast INDICATION: Diarrhea ^LLQ pain TECHNIQUE: Thin collimation axial images obtained from the diaphragm to the level of the pubic symphysis following the uneventful administration of 100 cc of low osmolar, nonionic intravenous contrast. Oral contrast was also administered. Dose reduction techniques used: Automated exposure control, adjustment of the mAs and/or kVp according to patient size, standardized low-dose protocol, and/or iterative reconstruction technique. RADIATION DOSE: Total DLP: 469.15 mGy*cm Estimated effective dose: (DLP x 0.015 x size factor) mSv CTDIvol has been reviewed. It is below the limits set by the Radiation Protocol Committee (RPC). COMPARISON: CT abdomen/pelvis 02/02/2020. ABDOMEN FINDINGS: Lung Bases: Bibasilar groundglass airspace opacities have increased in the interim. The heart is normal in size. Small amount of enteric contrast in the distal esophagus. Liver: Normal attenuation. No evidence for mass. Gallbladder: Present and contracted. No biliary ductal dilatation. Pancreas: Normal attenuation without mass or ductal dilatation. Spleen: Absent. Stable appearing splenule in the left upper quadrant. Adrenal Glands: No evidence for mass. Kidneys: Right: Normal enhancement. No soft tissue mass. No hydronephrosis. Left: Normal enhancement. No soft tissue mass. No hydronephrosis. Lymph Nodes: No lymphadenopathy. Aorta: Normal in diameter PELVIS FINDINGS: Bowel: Stomach: Normal. Small Bowel: Enteric contrast present throughout. No mural thickening or dilatation. Large Bowel: Enteric contrast present. No mural thickening or dilatation. Appendix: Normal. Bladder: Normal. Peritoneum/retroperitoneum: No free fluid or fluid collection.. Bones: Minimal degenerative changes of the spine. No focal osseous lesions. IMPRESSION: 1. Increasing pulmonary groundglass airspace opacities. This may be due to atypical pneumonia or reactive airways disease. 2. No evidence for bowel obstruction or inflammation. Normal appendix. Small amount of enteric contrast in the distal esophagus may be secondary to reflux. Signed by: Dr. 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 Assessment & Plan Assessment & Plan Final Impression: (1) Polycythemia (2) Abdominal pain Assessment & Plan Patient with markedly elevated WBC and persistent abd pain. Plan to admit to the hospital for further evaluation. S/W Heme/ONC regarding elevated WBC. GI consulted. Depart Disposition: ADMITTED Last Vital Signs Date Time Temp Pulse Resp B/P (MAP) Pulse Ox O2 Delivery O2 Flow Rate FiO2 02/24/20 02:19 96 28 140/100 98 Home Meds Reported Medications Esomeprazole Magnesium (NEXIUM) 20 Mg Capsule.dr, 20 MG PO DAILY, CAP PROTONIX THERAPEUTIC INTERCHANGE PER [facility] 02/24/20 Medications in the ED Sodium Chloride 1,000 ml @ 0 mls/hr Q0M STAT IV Last administered on 02/24/20at 02:44; Admin Dose 999 MLS/HR; Start 02/24/20 at 02:22; Stop 02/24/20 at 02:23; Status DC Morphine Sulfate 4 mg ONCE STAT IV Last administered on 02/24/20at 02:44; Admin Dose 4 MG; Start 02/24/20 at 02:22; Stop 02/24/20 at 02:26; Status DC Ondansetron HCl 4 mg ONCE STAT IV Last administered on 02/24/20at 02:44; Admin Dose 4 MG; Start 02/24/20 at 02:22; Stop 02/24/20 at 02:26; Status DC Piperacillin Sod/ Tazobactam Sod 50 ml @ 50 mls/hr Q6H IV Last administered on 02/25/20at 00:55; Admin Dose 50 MLS/HR; Start 02/24/20 at 03:45; Stop 03/02/20 at 03:44 Piperacillin Sod/ Tazobactam Sod 50 ml @ ud STK-MED ONCE .ROUTE ; Start 02/24/20 at 03:55; Stop 02/24/20 at 03:50; Status DC Morphine Sulfate 4 mg ONCE STAT IV Last administered on 02/24/20at 05:24; Admin Dose 4 MG; Start 02/24/20 at 04:52; Stop 02/24/20 at 04:56; Status DC Iopamidol 74,000 mg STK-MED ONCE INJ ; Start 02/24/20 at 05:18; Stop 02/24/20 at 05:12; Status DC Sodium Chloride 50 ml @ ud STK-MED ONCE .ROUTE ; Start 02/24/20 at 05:18; Stop 02/24/20 at 05:13; Status DC Ondansetron HCl 4 mg Q4H PRN IV NAUSEA AND VOMITING Last administered on 02/24/20at 14:50; Admin Dose 4 MG; Start 02/24/20 at 05:15; Stop 03/25/20 at 05:14 Sodium Chloride 1,000 ml @ 75 mls/hr [id number] IV Last administered on 02/24/20at 16:14; Admin Dose 75 MLS/HR; Start 02/24/20 at 05:15; Stop 03/25/20 at 05:14 Morphine Sulfate 4 mg Q4H PRN IV SEVERE PAIN (7-10) Last administered on 02/24/20at 14:50; Admin Dose 4 MG; Start 02/24/20 at 05:15; Stop 03/02/20 at 05:14 SHUKRI JENKINS 8, 2020 02:25
[2020-02-24 02:53] LABS: BASOPHILS # (AUTO) 0.2 (0.0-0.1); BASOPHILS % 0.7 % (0.0-1.0); EOSINOPHILS # (AUTO) 0.4 (0.0-0.4); EOSINOPHILS % 1.7 % (0.0-6.0); HEMATOCRIT 49.2 % (38.2-49.6); HEMOGLOBIN 16.8 g/dL (14.0-18.0); LYMPHOCYTES % 36.1 % (18.0-39.1); MEAN CORPUSCULAR HGB CONC 34.1 g/dL (31-35); MEAN CORPUSCULAR VOLUME 79.1 fL (81-99); MONOCYTES # (AUTO) 3.1 (0.2-0.8); MONOCYTES % 14.1 % (4.4-11.3); NEUTROPHILS # (AUTO) 10.3 (2.1-6.9); NEUTROPHILS % 46.8 % (38.7-80.0); PLATELET COUNT 583 x10e3/uL (140-360); RED BLOOD COUNT 6.22 x10e6/uL (4.3-5.7); RED CELL DISTRIBUTION WIDTH 24.2 % (11.7-14.4)
[2020-02-24 03:10] LABS: BILIRUBIN,URINE NEGATIVE (NEGATIVE); CLARITY,URINE CLOUDY (CLEAR); COLOR,URINE YELLOW (YELLOW); KETONES,URINE NEGATIVE (NEGATIVE); LEUKOCYTE ESTERASE ,URINE NEGATIVE (NEGATIVE); NITRITE,URINE NEGATIVE (NEGATIVE); PROTEIN,URINE DIPSTICK TRACE (NEGATIVE); URINE UROBILINOGEN 0.2 mg/dL (0.2 - 1)
[2020-02-24 03:14] LABS: ALANINE AMINOTRANSFERASE 90 IU/L (0-55); ALBUMIN 3.8 g/dL (3.5-5.0); ALBUMIN/GLOBULIN RATIO 1.2 (0.8-2.0); ALKALINE PHOSPHATASE 68 IU/L (40-150); AMYLASE 84 U/L (25-125); ANION GAP 13.9 mmol/L (8-16); BLOOD UREA NITROGEN 8 mg/dL (7-26); BUN/CREATININE RATIO 6 (6-25); CALCIUM 8.7 mg/dL (8.4-10.2); CARBON DIOXIDE 24 mmol/L (22-29); CHLORIDE 107 mmol/L (98-107); CREATINE KINASE 828 IU/L (30-200); CREATININE, SERUM 1.38 mg/dL (0.72-1.25); EST GLOMERULAR FILTRATION RATE 57 ML/MIN (60-); GLUCOSE 81 mg/dL (74-118); LIPASE 94 U/L (8-78); POTASSIUM 3.9 mmol/L (3.5-5.1); SODIUM 141 mmol/L (136-145)
[2020-02-24 03:17] LABS: AMORPHOUS SEDIMENT,URINE MANY (FEW); BACTERIA,URINE MANY /HPF; EPITHELIAL CELLS,URINE FEW /LPF; RBC,URINE 0-5 /HPF (0-5); WBC,URINE (MAN) 0-5 /HPF (0-5)
[2020-02-24] MEDS ORDERED: PIPER-TAZ 3.375 GM 50 ML ONE (03:55)
[2020-02-24] MEDS: PIPER-TAZ 3.375 GM 50 ML IV SCH ×4 (03:55→16:14)
--- NOTE | 2020-02-24 05:00 | Diagnostic Imaging Report ---
CT Abdomen And Pelvis with Intravenous Contrast INDICATION: Diarrhea ^LLQ pain TECHNIQUE: Thin collimation axial images obtained from the diaphragm to the level of the pubic symphysis following the uneventful administration of 100 cc of low osmolar, nonionic intravenous contrast. Oral contrast was also administered. Dose reduction techniques used: Automated exposure control, adjustment of the mAs and/or kVp according to patient size, standardized low-dose protocol, and/or iterative reconstruction technique. RADIATION DOSE: Total DLP: 469.15 mGy*cm Estimated effective dose: (DLP x 0.015 x size factor) mSv CTDIvol has been reviewed. It is below the limits set by the Radiation Protocol Committee (RPC). COMPARISON: CT abdomen/pelvis 02/02/2020. ABDOMEN FINDINGS: Lung Bases: Bibasilar groundglass airspace opacities have increased in the interim. The heart is normal in size. Small amount of enteric contrast in the distal esophagus. Liver: Normal attenuation. No evidence for mass. Gallbladder: Present and contracted. No biliary ductal dilatation. Pancreas: Normal attenuation without mass or ductal dilatation. Spleen: Absent. Stable appearing splenule in the left upper quadrant. Adrenal Glands: No evidence for mass. Kidneys: Right: Normal enhancement. No soft tissue mass. No hydronephrosis. Left: Normal enhancement. No soft tissue mass. No hydronephrosis. Lymph Nodes: No lymphadenopathy. Aorta: Normal in diameter PELVIS FINDINGS: Bowel: Stomach: Normal. Small Bowel: Enteric contrast present throughout. No mural thickening or dilatation. Large Bowel: Enteric contrast present. No mural thickening or dilatation. Appendix: Normal. Bladder: Normal. Peritoneum/retroperitoneum: No free fluid or fluid collection.. Bones: Minimal degenerative changes of the spine. No focal osseous lesions. IMPRESSION: 1. Increasing pulmonary groundglass airspace opacities. This may be due to atypical pneumonia or reactive airways disease. 2. No evidence for bowel obstruction or inflammation. Normal appendix. Small amount of enteric contrast in the distal esophagus may be secondary to reflux. Signed by: Dr. Mervat Yoon MD on 02/24/2020 4:57 AM
[2020-02-24] MEDS ORDERED: ONDANSETRON HCL INJ 2MG/ML 2ML 2 MG/ML VIAL IV PRN (05:15)
[2020-02-24] MEDS ORDERED: IOPAMIDOL 370 MG/ML 200 ML INFUS..BTL INJ ONE (05:18)
[2020-02-24] MEDS ORDERED: SODIUM CHLORIDE 0.9% 50ML 50 ML ONE (05:18)
[2020-02-24] MEDS: SODIUM CHLORIDE 0.9% 1000ML 1,000 ML IV SCH ×2 (05:34→16:14)
--- OUTSIDE RECORDS SUMMARY | 2020-02-24 06:48 | XMS REPORT | Clinical Summary ---
Author Author [facility] Address Unknown Phone Unavailable Care Team Providers Care Agile Java Developer Name Role Phone PCP Unavailable Allergies Not [...] SHIELD BCBS PPO xxxxxxxxxxxx PPO [address] [place] [address] CHOICE
--- OUTSIDE RECORDS SUMMARY | 2020-02-24 06:48 | XMS REPORT | Continuity of Care Document ---
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 ABSCESS OF HIP Active 06/09/2019 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 03/23/2018 [facility] LEFT SIDE PNEUMONIA, DEHYDRATION, POLYCT Active 12/07/2017 [facility] HYPOTENSION, INTRAPERITONEAL HEMATOMA Active 12/07/2017 [facility] Pneumonia, unspecified organism 03/23/2018 [facility] Other shock 03/23/2018 [facility] Acute respiratory failure with hypoxia 03/23/2018 [facility] Hemoperitoneum 03/23/2018 [facility] Acute kidney failure, unspecified 03/23/2018 [facility] Acute posthemorrhagic anemia 03/23/2018 [facility] Coagulation defect, unspecified 03/23/2018 [facility] Hyperkalemia 03/23/2018 [facility] Fluid overload, unspecified 03/23/2018 [facility] Nicotine dependence, cigarettes, uncomplicated 03/23/2018 [facility] PNEUMONIA, UNSPECIFIED ORGANISM Active [facility] DEHYDRATION Active [facility] HYPOTENSION, UNSPECIFIED Active [facility] HEMOPERITONEUM Active [facility] CUTANEOUS ABSCESS OF LIMB, UNSPECIFIED Active [facility] Medications Medication Details Route Status Patient Instructions Ordering Provider Order Date Source Acetaminophen 500 MG Oral Tablet 1,000 mg = 2 tab, PO, Q6H, X 14 day, # 112 tab, 0 Refill(s) Active 06/14/2019 [facility] nter Docusate Sodium 50 MG / sennosides, CORRECTION 8.6 MG Oral Tablet 1 tab, PO, BID, X 14 day, # 28 tab, 0 Refill(s) Active 06/14/2019 [facility] nter gabapentin 300 MG Oral Capsule 300 mg = 1 cap, PO, Q8H, # 42 cap, 0 Refill(s) Active 06/14/2019 [facility] methocarbamol 750 mg oral tablet 750 mg = 1 tab, PO, TID, X 7 day, # 21 tab, 0 Refill(s) Active 06/14/2019 [facility] nt pantoprazole 40 mg oral enteric coated tablet 40 mg = 1 tab, PO, Before Breakfast, # 14 tab, 0 Refill(s) Active 06/14/2019 [facility]ter Sulfamethoxazole 800 MG / Trimethoprim 1 60 MG Oral Tablet [Bactrim] 1 tab, PO, [id number], X 6 day, # 12 tab, 0 Refill(s) Active 06/14/2019 [facility] tramadol hydrochloride 50 MG Oral Tablet 100 mg = 2 tab, PO, Q6H, PRN Pain Score 4-6, X 3 day, # 24 tab, 0 Refill(s) Active 06/14/2019 [facility] Sulfamethoxazole 800 MG / Trimethoprim 1 60 MG Oral Tablet [Bactrim] Notes: One DS tablet = trimethoprim 160m g + sulfamethoxazole 800 mg Dose based on trimethoprim component On empty stomach with a glass of water. (Same As: Bactrim DS, Septra DS) No Longer Active 06/13/2019 [facility] nter vancomycin + Sodium Chloride 0.9% IV 250 mL 2001 mg: infuse over 2.5 hours For adult patients only: Round to nearest 250 mg per Medical Staff approval MEDICATION WASTE Product Size: 1000 mg Product Wasted: ___ mg No Longer Active 06/12/2019 [facility] Vancomycin 1.25 gm, Route: IVP B, Drug form: INJ, ABXQ8H, Dosing Weight 90.909, kg, Priority: Within 4 hours, Start date: 06/12/19 15:00:00 CDT, Duration: 1 day, Stop date: 06/13/19 7:00:00 CDT, ABX Indication: Skin/Soft Tissue Infection Inactive 06/12/2019 [facility] nter Sulfamethoxazole 800 MG / Trimethoprim 1 60 MG Oral Tablet [Bactrim] Notes: One DS tablet = trimethoprim 160m g + sulfamethoxazole 800 mg Dose based on trimethoprim component On empty stomach with a glass of water. (Same As: Bactrim DS, Septra DS) Inactive 06/12/2019 [facility] nter Robaxin Notes: (Same as:Robaxi n) No Longer Active 06/12/2019 [facility] Tetrahydrocannabinol Notes: (S lynn as: Marinol) No Longer Active 06/12/2019 [facility] Dilaudid 0.5 mg, Route: IVP, O NCE, Dosing Weight 90.909, kg, Priority: STAT, Start date: 06/11/19 14:40:00 CDT, Stop date: 06/11/19 14:40:00 CDT Inactive 06/11/2019 [facility] gabapentin 300 MG Oral Capsule Notes: (Same as: Neurontin) No Longer Active 06/11/2019 [facility] Acetaminophen Notes: Infuse ov er 15 minutes Do not exceed 4gm/day of acetaminophen MEDICATION WASTE Product Size: 1000 mg Product Wasted: ___ mg Inactive 06/11/2019 [facility] nt Morphine Notes: (Same as:MORPh ine Sulfate) Inactive 06/11/2019 [facility] hydromorphone (ANES) + sodium chloride (ANES) 9 mL Route: IV, Drug form: INJ, ONCE, Stop date: 06/10/19 18:30:00 CDT Inactive 06/10/2019 [facility] lidocaine (ANES) Route: IV, Dr ug form: INJ, ONCE, Stop date: 06/10/19 18:24:00 CDT Inactive 06/10/2019 [facility] nter propofol (ANES) Route: IV, Brian g form: INJ, ONCE, Stop date: 06/10/19 18:24:00 CDT Inactive 06/10/2019 [facility] rocuronium (ANES) Route: IV, D rug form: INJ, ONCE, Stop date: 06/10/19 18:24:00 CDT Inactive 06/10/2019 [facility] succinylcholine (ANES) Route: IV, Drug form: INJ, ONCE, Stop date: 06/10/19 18:24:00 CDT Inactive 06/10/2019 [facility] n[facility] fentaNYL (ANES) Route: IV, Brian g form: INJ, ONCE, Stop date: 06/10/19 18:24:00 CDT Inactive 06/10/2019 [facility] nter Hydralazine 10 mg, Route: IVP, Q20Min, Dosing Weight 90.909, kg, PRN Elevated BP, Start date: 06/10/19 18:16:00 CDT, Duration: 2 doses or times, Stop date: Limited # of times Inactive 06/10/2019 [facility]ter Labetalol 10 mg, Route: IVP, Q 5Min, Dosing Weight 90.909, kg, PRN Elevated BP, Start date: 06/10/19 18:16:00 CDT, Duration: 5 doses or times, Stop date: Limited # of times Inactive 06/10/2019 [facility] n[facility] Oxycodone Hydrochloride 5 MG Oral Tablet 5 mg, Route: PO, Drug form: TAB, Q4H, Dosing Weight 90.909, kg, PRN Pain Score 4-6, Start date: 06/10/19 18:16:00 CDT, Duration: 30 day, Stop date: 07/10/19 18:15:00 CDT Inactive 06/10/2019 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 Naloxone 0.4 mg, Route: IVP, Q 2MIN, Dosing Weight 90.909, kg, PRN Narcotic Reversal, Start date: 06/10/19 18:16:00 CDT, Duration: 8 doses or times, Stop date: Limited # of times Inactive 06/10/2019 [facility] nter Ondansetron 4 mg, Route: IVP, ONCE, Dosing Weight 90.909, kg, PRN Nausea & Vomiting, Start date: 06/10/19 18:16:00 CDT Inactive 06/10/2019 [facility] midazolam (ANES) Route: IV, Dr fuentes form: SOLN, ONCE, Stop date: 06/10/19 17:44:00 CDT Inactive 06/10/2019 [facility] Lactated Ringers Injection IV (ANES) 1000 mL Route: IV, Total Volume: 1,000, Start date: 06/10/19 17:12:00 CDT, Stop date: 06/10/19 18:12:00 CDT Inactive 06/10/2019 [facility] remove patch Notes: Remove pat ch 12 hours after application each day. No Longe r Active 06/10/2019 [facility] Acetaminophen 300 MG / Codeine Phosphate 30 MG Oral Tablet 1 tab, PO, Q6H, PRN pain, # 20 tab, 0 Refill(s) No Longer Active 06/10/2019 [facility] vancomycin 2001 mg: infuse ov er 2.5 hours For adult patients only: Round to nearest 250 mg per Medical Staff approval MEDICATION WASTE Product Size: 1000 mg Product Wasted: ___ mg Inactive 06/10/2019 [facility] Ondansetron 2 MG/ML Injectable Solution [Zofran] Notes: (Same as: Zofran) MEDICATION WASTE Product Size: 4 mg Product Wasted: ___ mg Inactive 06/10/2019 [facility] Nicotine Notes: (Same as: Mercedes gates) "Remove old patch before application of new patch" WASTE: F/P - P Waste Black; E - P Waste Black No Longer Active 06/10/2019 [facility] remove patch Notes: Remove old patch before application of new patch. WASTE: F/P - P Waste Black; E - P Waste Black No Longer Active 06/10/2019 [facility] Docusate Sodium 50 MG / sennosides, CORRECTION 8.6 MG Oral Tablet Notes: (Same as Senokot-S) Equiv. to Isis-Colace. No Longer Active 06/10/2019 [facility] meropenem Notes: (Same as: Chanda rem) . MEDICATION WASTE Product Size: 1000 mg Product Wasted: ___ mg No Longer Active 06/10/2019 [facility] pantoprazole Notes: Tablet china uld not be chewed or crushed. (Same as: Protonix) N o Longer Active 06/10/2019 [facility] n[facility] Tylenol Notes: Max acetaminoph en 4000 mg/day (4 gm/day). (Same as: Tylenol Extra Strength) No Longer Active 06/10/2019 [facility] Tramadol 50 mg, Route: PO, Brian g form: TAB, Q6H, Dosing Weight 90.909, kg, Start date: 06/10/19 6:00:00 CDT, Duration: 30 day, Stop date: 07/10/19 0:00:00 CDT Inactive 06/10/2019 [facility] Lidocaine Hydrochloride 0.05 MG/MG Trans dermal Patch [Lidoderm] Notes: Apply only once for up to 12 hour s in a 24-hour period (12 hours on and 12 hours off). (Same as: Lidoderm) "Remove old patch before application of new patch" No Longer Active 06/10/2019 [facility] Vancomycin 2001 mg: infuse ov er 2.5 hours Inactive 06/10/2019 [facility] heparin Notes: porcine heparin No Longer Active 06/10/2019 [facility] heparin sodium, porcine 2500 UNT/ML Injectable Solutio n Notes: porcine heparin Inactiv e 06/10/2019 [facility] Tramadol Notes: Not to exceed 400mg/day. (Same As: Ultram) No Longer Active 06/10/2019 [facility] Vancomycin 800 mg, Route: IV, ONCE, Dosing Weight 90.909, kg, Start date: 06/10/19 1:20:00 CDT, Stop date: 06/10/19 1:20:00 CDT, ABX Indication: Skin/Soft Tissue Infection Inactive 06/10/2019 [facility] n[facility] Isolyte S PH 7.4 1,000 mL Note s: (Same as: Isolyte S PH 7.4) No Longer Active 06/10/2019 [facility] meropenem Notes: Same as Kelvin valencia MEDICATION WASTE Product Size: 500 mg Product Wasted: _0__ mg Inactive 06/10/2019 [facility] Morphine Notes: (Same as:MORPh ine Sulfate) Inactive 06/10/2019 [facility] ferrous sulfate 325 MG Oral Tablet 325 mg = 1 tab, PO, TID, # 90 tab, 0 Refill(s) Active 12/15/2017 [facility] chlorproMAZINE 25 mg oral tablet 25 mg = 1 tab, PO, BID, # 10 tab, 0 Refill(s) Active 12/15/2017 [facility] ferrous sulfate Notes: Give wi th food. iron elemental [id number] as ferrous sulfate Dose=___mg elemental iron Inactive 12/15/2017 [facility] meningococcal group A polysaccharide / m eningococcal group C polysaccharide / MENINGOCOCCAL POLYSACCHARIDE VACCINE GROUP W-135 / MENINGOCOCCAL POLYSACCHARIDE VACCINE GROUP Y Notes: (Same as: Menomune A/C/Y/W-135) (meningococcal polysaccharide vaccine 0.5ml/dose INJ) WASTE: F/P - Black; E - Municipal Trash Bin No Longer Active 12/14/2017 [facility] Chlorpromazine Notes: (Same As : Thorazine) No Longer Active 12/13/2017 [facility] Haemophilus influenzae type b strain 148 2, capsular polysaccharide inactivated tetanus toxoid conjugate vaccine 0.068 MG/ML Injectable Solution [ActHIB] Notes: (Same as: Act Hib) Haemophilus I nfluenzae Conjugate Vaccine (tetanus toxid conjugate). No Longer Active 12/13/2017 [facility] Chlorpromazine Notes: (Same As : Thorazine) Inactive 12/13/2017 [facility] Protonix 20 mg, Route: PO, Brian g form: ECTAB, Before Dinner, Dosing Weight 84.5, kg, Start date: 12/12/17 16:30:00 CDT, Duration: 30 day, Stop date: 01/10/18 16:30:00 CDT Inactive 12/12/2017 [facility] Miralax Notes: Dissolve in 8 o z of water or juice. (Same as: Miralax) Inactive 12/12/2017 [facility] Baclofen Notes: (Same As: Delvin esal) No Longer Active 12/11/2017 [facility] Zosyn Notes: (Same as: Zosyn) Dosing based on Piperacillin component MEDICATION WASTE Product Size: 3375 mg Product Wasted: ___ mg No Longer Active 12/11/2017 [facility] Lasix Notes: (Same as: Lasix) MEDICATION WASTE Product Size: 40 mg Product Wasted: ___ mg No Longer Active 12/11/2017 [facility] Tramadol Notes: Not to exceed 400mg/day. (Same As: Ultram) No Longer Active 12/10/2017 [facility] Methadone Notes: (Same as: Dol ophine) No Longer Active 12/10/2017 [facility] Acetaminophen Notes: Max aceta minophen 4000 mg/day (4 gm/day). (Same as: Tylenol Extra Strength) Inactive 12/10/2017 [facility] multivitamin Notes: (Same as:Frank de la garza) WASTE: F/P - Black; E - Municipal Trash Bin Take with food. No Longer Active 12/10/2017 [facility] Thiamine 100 mg, Route: PO, Da sheron, Dosing Weight 84.5, kg, Start date: 12/10/17 9:00:00 CDT, Duration: 5 day, Stop date: 12/14/17 9:00:00 CDT No Longer Active 12/10/2017 [facility] Folic Acid Notes: (Same as: Fo lvite) No Longer Active 12/10/2017 [facility] Furosemide 40 mg, Route: IVP, Drug form: INJ, Daily, Dosing Weight 84.5, kg, Start date: 12/10/17 9:00:00 CDT, Duration: 30 day, Stop date: 01/08/18 9:00:00 CDT No Longer Active 12/10/2017 [facility] Lasix 40 mg, Route: IVP, Drug form: INJ, ONCE, Dosing Weight 84.5, kg, Start date: 12/10/17 8:15:00 CDT, Stop date: 12/10/17 8:15:00 CDT Inactive 12/10/2017 [facility] Acetaminophen Notes: Max aceta minophen 4000 mg/day (4 gm/day). (Same as: Tylenol Extra Strength) No Longer Active 12/09/2017 [facility] Furosemide 40 mg, Route: IVP, Drug form: INJ, ONCE, Dosing Weight 84.5, kg, Start date: 12/09/17 17:47:00 CDT, Stop date: 12/09/17 17:47:00 CDT Inactive 12/09/2017 [facility] Furosemide Notes: (Same as: Alexandra mcdowell) MEDICATION WASTE Product Size: 40 mg Product Wasted: ___ mg Inactive 12/09/2017 [facility] Lorazepam Notes: (Same as: Ati van) No Longer Active 12/09/2017 [facility] Vitamin B1 Notes: (Same As: Vi tamin B1) Inactive 12/09/2017 [facility] Protonix Notes: Tablet should not be chewed or crushed. (Same as: Protonix) No Longer Active 12/09/2017 [facility] Lasix Notes: (Same as: Lasix) MEDICATION WASTE Product Size: 40 mg Product Wasted: ___ mg Inactive 12/09/2017 [facility] Acetaminophen 325 MG / Hydrocodone Blanca trate 5 MG Oral Tablet [[place] 5/325] Notes: (Same as: [place] 325/5) Do not ex ceed 4gm/day of acetaminophen. No Longer Activ e 12/09/2017 [facility] Robitussin-AC oral syrup Notes : (Same As: Robitussin AC) No Longer Active 12/09/2017 [facility] sennosides, CORRECTION Notes: (Same a s: Senokot) No Longer Active 12/09/2017 [facility] Docusate Notes: (Same as: Cola ce) (Do Not Crush) No Longer Active 12/09/2017 [facility] Protonix Notes: Tablet should not be chewed or crushed. (Same as: Protonix) Inactive 12/09/2017 [facility] NS (Bolus) IV 500 mL, 500 ml/h r, Infuse Over: 1 hr, Route: IV, 500, Drug form: INJ, ONCE, Priority: STAT, Dosing Weight 84.5 kg, Start date: 12/08/17 17:04:00 CDT, Stop date: 12/08/17 17:04:00 CDT Inactive 12/08/2017 [facility] Zofran Notes: (Same as: Zofran ) MEDICATION WASTE Product Size: 4 mg Product Wasted: ___ mg No Longer Active 12/08/2017 [facility] diphtheria toxoid vaccine, inactivated / Haemophilus capsular oligosaccharide 0.5 ml, Route: IM, Drug Form: SOLN, Dosi ng Weight 84.5, kg, ONCALL, Within 24 hours, Start date: 12/08/17 14:00:00 CDT, Duration: 1 day, Stop date: 12/09/17 13:59:00 CDT Inactive 12/08/2017 [facility] meningococcal group A polysaccharide / m eningococcal group C polysaccharide / MENINGOCOCCAL POLYSACCHARIDE VACCINE GROUP W-135 / MENINGOCOCCAL POLYSACCHARIDE VACCINE GROUP Y 0.5 ml, Route: SUB-Q, Dosing Weight 84.5, kg, ONCALL, Within 24 hours, Start date: 12/08/17 14:00:00 CDT Inactive 12/08/2017 [facility] pneumococcal capsular polysaccharide typ e 1 vaccine / pneumococcal capsular polysaccharide type 10A vaccine / pneumococcal capsular polysaccharide type 11A vaccine / pneumococcal capsular polysaccharide type 12F vaccine / pneumococcal capsular polysacchar Notes: (Same as: Pneumovax 23) Refrigerate Inactive 12/08/2017 [facility] haemophilus b conjugate (PRP-T) vaccine Notes: (Same as: Act Hib) Haemophilus Influenzae Conjugate Vaccine (tetanus toxid conjugate). No Longer Active 12/08/2017 [facility] acetaminophen Notes: Infuse ov er 15 minutes Do not exceed 4gm/day of acetaminophen MEDICATION WASTE Product Size: 1000 mg Product Wasted: ___ mg No Longer Active 12/08/2017 [facility] pneumococcal 13-valent vaccine intramuscular suspensio n Notes: Shake well prior to use (Same as: Prevnar 13) No Longer Active 12/08/2017 [facility] Ipratropium Spring 0.2 MG/ML Inhalant Solution Notes: SEE RT DOCUMENTATION (Same as:Atrovent) No Longer Active 12/08/2017 [facility] meningococcal group A polysaccharide / m eningococcal group C polysaccharide / MENINGOCOCCAL POLYSACCHARIDE VACCINE GROUP W-135 / MENINGOCOCCAL POLYSACCHARIDE VACCINE GROUP Y Notes: (Same as: Menomune A/C/Y/W-135) (meningococcal polysaccharide vaccine 0.5ml/dose INJ) WASTE: F/P - Black; E - Municipal Trash Bin No Longer Active 12/08/2017 [facility] Haemophilus capsular oligosaccharide 0.0 15 MG/ML / Neisseria meningitidis 0.25 MG/ML Injectable Suspension 0.5 ml, Route: IM, Drug Form: SUSP, Dosing Weight 84.5, kg, ONCALL, Start date: 12/08/17 12:00:00 CDT, Duration: 30 day, Stop date: 01/07/18 11:59:00 CDT Inactive 12/08/2017 [facility] Haemophilus capsular oligosaccharide 0.0 15 MG/ML / Neisseria meningitidis 0.25 MG/ML Injectable Suspension 0.5 ml, Route: IM, Drug Form: SUSP, Dosing Weight 84.5, kg, ONCE, Start date: 12/08/17 11:47:00 CDT, Stop date: 12/08/17 11:47:00 CDT Inactive 12/08/2017 [facility] Tramadol Notes: Not to exceed 400mg/day. (Same As: Ultram) No Longer Active 12/08/2017 [facility] Ketorolac 4 days MEDICA TION WASTE Product Size: 30 mg Product Wasted: ___ mg Inactive 12/08/2017 [facility] celecoxib Notes: NSAID. Please check indication. Not for seizure. (Same As: CeleBREX) N o Longer Active 12/08/2017 [facility] pregabalin Notes: (Same as: Ly richy) No Longer Active 12/08/2017 [facility] Acetaminophen Notes: Infuse ov er 15 minutes Do not exceed 4gm/day of acetaminophen MEDICATION WASTE Product Size: 1000 mg Product Wasted: ___ mg Inactive 12/08/2017 [facility] Methadone Notes: (Same as: Dol ophine) No Longer Active 12/08/2017 [facility] metoprolol (ANES) Route: IV, D rug form: INJ, ONCE, Stop date: 12/08/17 10:08:00 CDT Inactive 12/08/2017 [facility] glycopyrrolate (ANES) Route: I V, Drug form: INJ, ONCE, Stop date: 12/08/17 10:03:00 CDT Inactive 12/08/2017 [facility] neostigmine (ANES) Route: IV, Drug form: INJ, ONCE, Stop date: 12/08/17 10:03:00 CDT Inactive 12/08/2017 [facility] morphine Sulfate (ANES) Route: IV, Drug form: INJ, ONCE, Stop date: 12/08/17 10:03:00 CDT Inactive 12/08/2017 [facility] calcium chloride (ANES) Route: IV, Drug form: INJ, ONCE, Stop date: 12/08/17 9:58:00 CDT Inactive 12/08/2017 [facility] ondansetron (ANES) Route: IV, Drug form: INJ, ONCE, Stop date: 12/08/17 9:53:00 CDT Inactive 12/08/2017 [facility] propofol (ANES) Route: IV, Brian g form: INJ, ONCE, Stop date: 12/08/17 9:43:00 CDT Inactive 12/08/2017 [facility] fentaNYL (ANES) Route: IV, Brian g form: INJ, ONCE, Stop date: 12/08/17 9:43:00 CDT Inactive 12/08/2017 [facility] rocuronium (ANES) Route: IV, D rug form: INJ, ONCE, Stop date: 12/08/17 9:43:00 CDT Inactive 12/08/2017 [facility] Sodium Chloride 0.9% IV (ANES) 500 mL Route: IV, Total Volume: 500, Start date: 12/08/17 9:38:00 CDT, Stop date: 12/08/17 10:38:00 CDT Inactive 12/08/2017 [facility] phenylephrine (ANES) Route: IV , Drug form: INJ, ONCE, Stop date: 12/08/17 9:23:00 CDT Inactive 12/08/2017 [facility] ceFAZolin (ANES) Route: IV, Dr ug form: INJ, ONCE, Stop date: 12/08/17 9:13:00 CDT Inactive 12/08/2017 [facility] potassium chloride (ANES) 40 mEq Route: IV, Drug form: INJ, Start date: 12/08/17 9:11:00 CDT, Stop date: 12/08/17 10:11:00 CDT Inactive 12/08/2017 [facility] Prednisone Notes: Take with fo od. Inactive 12/08/2017 [facility] Budesonide Notes: (Same As: Pu lmicort) No Longer Active 12/08/2017 [facility] Saline Flush 0.9% Notes: (Same as: BD Posiflush) No Longer Active 12/08/2017 [facility] Isolyte S PH 7.4 (ANES) 1000 mL Route: IV, Total Volume: 1,000, Start date: 12/08/17 8:31:00 CDT, Stop date: 12/08/17 9:31:00 CDT Inactive 12/08/2017 [facility] normal saline 0.9% IV 1,000 mL 1,000 mL, Rate: 100 ml/hr, Infuse over: 10 hr, Route: IV, Dosing Weight 84.5 kg, Total Volume: 1,000, Start date: 12/08/17 8:22:00 CDT, Duration: 30 day, Stop date: 01/07/18 8:21:00 CDT, 2.04, m2 No Longe r Active 12/08/2017 [facility] Sodium Chloride 0.9% IV 1,000 mL + M.V.I .-12 10 mL Daily + folic acid IV 1 mg Daily 1,000 mL, Rate: 100 ml/hr, Infuse over: 10.1 hr, Route: IV, Dosing Weight 84.5 kg, Total Volume: 1,010.2, Start date: 12/08/17 8:21:00 CDT, Stop date: 12/11/17 8:20:00 CDT, 2.04, m2 No Longer Active 12/08/2017 [facility] Hydrocortisone Notes: (Same as : Solu-CORTEF) Inactive 12/08/2017 [facility] Benadryl Notes: (Same as: [place] dryl) Inactive 12/08/2017 [facility] Lasix 20 mg, Route: IVP, Drug form: INJ, ONCE, Dosing Weight 84.5, kg, Priority: NOW, Start date: 12/08/17 6:17:00 CDT, Stop date: 12/08/17 6:17:00 CDT Inactive 12/08/2017 [facility] Tranexamic Acid Notes: (Same A s: Cyklokapron) Inactive 12/08/2017 [facility] Diphenhydramine Notes: (Same a s: Benadryl) Inactive 12/08/2017 [facility] Esomeprazole 20 MG Enteric Coated Capsule [Nexium] 20 mg = 1 cap, PO, Daily, # 30 cap, 0 Refill(s) Active 12/08/2017 [facility] Levofloxacin Notes: Do not giv e w/antacids, dairy pdt & minerals Take 1 hr before or 2 hr after dairy products No Longer Active 12/08/2017 [facility] Albuterol 0.83 MG/ML Inhalant Solution Notes: SEE RT DOCUMENTATION (Same as: Proventil) Inactive 12/08/2017 [facility] Dextrose 50% Syringe 25 gm, 50 mL, Route: IVP, Drug Form: INJ, Dosing Weight 84.5, kg, ONCE, Start date: 12/08/17 0:14:00 CDT, Stop date: 12/08/17 0:14:00 CDT Inactive 12/08/2017 [facility] Insulin regular 60 units) W ASTE: F/P - Black; E - Municipal Trash Bin Stable for 28 days at room temperature Expires in days from Date Inactive 12/08/2017 [facility] normal saline 0.9% IV 1,000 mL 1,000 mL, Rate: 150 ml/hr, Infuse over: 6.7 hr, Route: IV, Dosing Weight 84.5 kg, Total Volume: 1,000, Start date: 12/08/17 0:03:00 CDT, Duration: 30 day, Stop date: 01/07/18 0:02:00 CDT, 2.04, m2 Inactive 12/08/2017 [facility] Calcium Gluconate Notes: WASTE : F/P - Sink; E - Municipal Trash Bin Inactive 12/08/2017 [facility] Morphine Notes: (Same as:MORPh ine Sulfate) No Longer Active 12/08/2017 [facility] Sodium Chloride 0.9% (titrate) 250 mL 250 mL, Rate: To prime line and flush remaining blood products., Route: IV, Total Volume: 250, Start Date: 12/07/17 22:36:00 CDT, Duration: 30 day, Stop date: 01/06/18 22:35:00 CDT, Replace Every: 24 hr No Longer Active 12/08/2017 [facility] Acetaminophen Notes: Do not ex ceed 4 gm/day. (Same as: Tylenol) No Longer Active 12/08/2017 [facility] Nystatin 100 UNT/MG Topical Powder Notes: (Same as:Mycostatin, Nilstat) For external use only. No Longer Active 12/08/2017 [facility] Ondansetron Notes: (Same as: Karol arce) MEDICATION WASTE Product Size: 4 mg Product Wasted: ___ mg No Longer Active 12/08/2017 [facility] Calcium Carbonate 500 MG Chewable Tablet Notes: (Same As: Victor Hugo) Calcium Carbonate 500 mg = 200 mg elemental calcium Dose = mg calcium carbonate ( mg elemental calcium) No Longer Active 12/08/2017 [facility] potassium phosphate-sodium phosphate 250 mg-280 mg-160 mg oral powder for reconstitution Notes: (Same as: Phos-NaK) Each 1.5 gm pkt has 250mg phosphorous. Mix w/2.5oz water and stir. No Longer Active 12/08/2017 [facility] Calcium Gluconate Notes: WASTE : F/P - Sink; E - Municipal Trash Bin No Longer Active 12/08/2017 [facility] Magnesium Oxide Notes: (Same a s: Mag-Ox 400) Magnesium oxide [id number] elemental magnesium Dose=____mg magnesium oxide (___mg elemental magnesium) No Longer Active 12/08/2017 [facility] Potassium Chloride Notes: Infu se at a rate of 10 mEq/hr. (Same as: KCL) No Longer Active 12/08/2017 [facility] potassium phosphate Notes: (Sa me as: K Phosphate.) 1 mMol phoshate has 1.47 mEq potassium Infuse over 4 hours No Longer Active 12/08/2017 [facility] sodium phosphate 30 mmol, 10 m L, Route: IVPB, PRN, kg, PRN Abnormal Lab Result, Start date: 12/07/17 22:35:00 CDT, Duration: 30 day, Stop date: 01/06/18 22:34:00 CDT, FOR ICU USE ONLY No Longer Active 12/08/2017 [facility] Magnesium Sulfate Notes: WASTE : F/P - Sink; E - Municipal Trash Bin No Longer Active 12/08/2017 [facility] Saline Flush 0.9% Notes: (Same as: BD Posiflush) No Longer Active 12/08/2017 [facility] Ipratropium Notes: SEE RT DOCU MENTATION (Same as:Atrovent) No Longer Active 12/08/2017 [facility] Albuterol 0.83 MG/ML Inhalant Solution Notes: SEE RT DOCUMENTATION (Same as: Proventil) No Longer Active 12/08/2017 [facility] Allergies, Adverse Reactions, Alerts Substance Category Reaction Severity Reaction type Status Date Reported Comments Source Keflex Assertion Drug allergy Active [facility] iodine Assertion Drug allergy Active [facility] Immunizations Immunization Date Given Site Status Last Updated Comments Source influenza virus vaccine, inactivated 06/14/2019 Left Deltoid completed [facility] haemophilus b conjugate (PRP-T) vaccine 12/15/2017 Right deltoid completed [facility] meningococcal conjugate vaccine 12/15/2017 [facility] pneumococcal 13-valent vaccine 12/15/2017 Left deltoid completed [facility] Results Order Name Results Value Reference Range Date Interpretation Comments Source ELECTROLYTES AGAP 12.6 10.0 - 20.0 06/14/2019 [facility] ELECTROLYTES Glucose Lvl 127 70 - 99 06/14/2019 [facility] ELECTROLYTES BUN 11 7 - 22 06/14/2019 [facility] ELECTROLYTES Creatinine Lvl 1.3 1 0.50 - 1.40 06/14/2019 [facility] ELECTROLYTES Sodium Lvl 138 135 - 145 06/14/2019 [facility] ELECTROLYTES Potassium Lvl 4.6 3.5 - 5.1 06/14/2019 [facility] ELECTROLYTES Chloride Lvl 107 95 - 109 06/14/2019 [facility] ELECTROLYTES CO2 23 24 - 32 06/14/2019 [facility] ELECTROLYTES Calcium Lvl 8.9 8.5 - 10.5 06/14/2019 [facility] ELECTROLYTES eGFR 67 06/14/2019 Result Comment: [...] should be multiplied by the estimated BMI. [facility] HEMATOLOGY WBC 16.9 3.7 - 10.4 06/14/2019 [facility] HEMATOLOGY RBC 5.38 4.70 - 6.10 06/14/2019 [facility] HEMATOLOGY Hgb 14.2 14.0 - 18.0 06/14/2019 [facility] HEMATOLOGY Hct 43.7 42.0 - 54.0 06/14/2019 [facility] HEMATOLOGY MCV 81.3 80.0 - 94.0 06/14/2019 [facility] HEMATOLOGY MCH 26.4 27.0 - 31.0 06/14/2019 [facility] HEMATOLOGY MCHC 32.5 32.0 - 36.0 06/14/2019 [facility] HEMATOLOGY RDW 17.1 11.5 - 14.5 06/14/2019 [facility] HEMATOLOGY Platelet 689 133 - 450 06/14/2019 [facility] HEMATOLOGY MPV 8.0 7.4 - 10.4 06/14/2019 [facility] HEMATOLOGY Segs 56.0 45.0 - 75.0 06/14/2019 [facility] HEMATOLOGY Lymphocytes 30.0 20.0 - 40.0 06/14/2019 [facility] HEMATOLOGY Monocytes 9.3 2.0 - 12.0 06/14/2019 [facility] HEMATOLOGY Eosinophils 3.9 0.0 - 4.0 06/14/2019 [facility] HEMATOLOGY Basophils 0.8 0.0 - 1.0 06/14/2019 [facility] HEMATOLOGY Neutrophils # 9.4 1.5 - 8.1 06/14/2019 [facility] HEMATOLOGY Lymphocytes # 5.0 1.0 - 5.5 06/14/2019 [facility] HEMATOLOGY Monocytes # 1.6 0.0 - 0.8 06/14/2019 [facility] HEMATOLOGY Eosinophils # 0.7 0.0 - 0.5 06/14/2019 [facility] HEMATOLOGY Basophils # 0.1 0.0 - 0.2 06/14/2019 [facility] CHEM PANEL Glucose Lvl 135 70 - 99 06/13/2019 [facility] CHEM PANEL BUN 9 7 - 22 06/13/2019 [facility] CHEM PANEL Creatinine Lvl 1.18 0.50 - 1.40 06/13/2019 [facility] CHEM PANEL Sodium Lvl 138 135 - 145 06/13/2019 [facility] CHEM PANEL Potassium Lvl 4.3 3.5 - 5.1 06/13/2019 [facility] CHEM PANEL Chloride Lvl 107 95 - 109 06/13/2019 [facility] CHEM PANEL CO2 24 24 - 32 06/13/2019 [facility] CHEM PANEL Calcium Lvl 8.8 8.5 - 10.5 06/13/2019 [facility] CHEM PANEL AGAP 11.3 10.0 - 20.0 06/13/2019 [facility] CHEM PANEL eGFR 76 06/13/2019 Result [...] should be multiplied by the estimated BMI. [facility] CHEM PANEL Glucose Lvl 135 70 - 99 06/13/2019 [facility] CHEM PANEL BUN 9 7 - 22 06/13/2019 [facility] CHEM PANEL Creatinine Lvl 1.18 0.50 - 1.40 06/13/2019 [facility] CHEM PANEL Sodium Lvl 138 135 - 145 06/13/2019 [facility] CHEM PANEL Potassium Lvl 4.3 3.5 - 5.1 06/13/2019 [facility] CHEM PANEL Chloride Lvl 107 95 - 109 06/13/2019 [facility] CHEM PANEL CO2 24 24 - 32 06/13/2019 [facility] CHEM PANEL Calcium Lvl 8.8 8.5 - 10.5 06/13/2019 [facility] CHEM PANEL Total Protein 6.3 6.4 - 8.4 06/13/2019 [facility] CHEM PANEL Albumin Lvl 2.6 3.5 - 5.0 06/13/2019 [facility] CHEM PANEL ALT 56 0 - 65 06/13/2019 [facility] CHEM PANEL AST 33 0 - 37 06/13/2019 [facility] CHEM PANEL Alk Phos 57 39 - 136 06/13/2019 [facility] CHEM PANEL Bili Total 0.2 0.2 - 1.3 06/13/2019 [facility] CHEM PANEL AGAP 11.3 10.0 - 20.0 06/13/2019 [facility] CHEM PANEL B/C Ratio 8 6 - 25 06/13/2019 [facility] CHEM PANEL Globulin 3.7 2.7 - 4.2 06/13/2019 [facility] CHEM PANEL A/G Ratio 0.7 0.7 - 1.6 06/13/2019 [facility] CHEM PANEL eGFR 76 06/13/2019 Result [...] should be multiplied by the estimated BMI. [facility] HEMATOLOGY WBC 18.8 3.7 - 10.4 06/13/2019 [facility] HEMATOLOGY RBC 4.85 4.70 - 6.10 06/13/2019 [facility] HEMATOLOGY Hgb 13.1 14.0 - 18.0 06/13/2019 [facility] HEMATOLOGY Hct 39.2 42.0 - 54.0 06/13/2019 [facility] HEMATOLOGY MCV 80.8 80.0 - 94.0 06/13/2019 [facility] HEMATOLOGY MCH 26.9 27.0 - 31.0 06/13/2019 [facility] HEMATOLOGY MCHC 33.3 32.0 - 36.0 06/13/2019 [facility] HEMATOLOGY RDW 16.7 11.5 - 14.5 06/13/2019 [facility] HEMATOLOGY Platelet 640 133 - 450 06/13/2019 [facility] HEMATOLOGY MPV 7.5 7.4 - 10.4 06/13/2019 [facility] TOXICOLOGY Vanco Tr 7.4 06/12/2019 [facility] TOXICOLOGY Vanco Tr TND 1500 06/12/2019 [facility] TOXICOLOGY Vanco Tr 0.9 06/11/2019 [facility] TOXICOLOGY Vanco Tr TND 1330 06/11/2019 [facility] HEMATOLOGY WBC 22.5 3.7 - 10.4 06/11/2019 [facility] HEMATOLOGY RBC 4.92 4.70 - 6.10 06/11/2019 [facility] HEMATOLOGY Hgb 13.0 14.0 - 18.0 06/11/2019 [facility] HEMATOLOGY Hct 40.2 42.0 - 54.0 06/11/2019 [facility] HEMATOLOGY MCV 81.5 80.0 - 94.0 06/11/2019 [facility] HEMATOLOGY MCH 26.4 27.0 - 31.0 06/11/2019 [facility] HEMATOLOGY MCHC 32.4 32.0 - 36.0 06/11/2019 [facility] HEMATOLOGY RDW 16.7 11.5 - 14.5 06/11/2019 [facility] HEMATOLOGY Platelet 598 133 - 450 06/11/2019 [facility] HEMATOLOGY MPV 8.1 7.4 - 10.4 06/11/2019 [facility] IMMUNOLOGY HIV. Negat adrian *NA* (06/11/19 4:44 AM) Negative 06/11/2019 [facility] IMMUNOLOGY Hep Bs Ag Negat adrian *NA* (06/11/19 4:44 AM) Negative 06/11/2019 [facility] IMMUNOLOGY Hep B Core IgM Negat adrian *NA* (06/11/19 4:44 AM) Negative 06/11/2019 [facility] IMMUNOLOGY Hep C Ab Negat adrian *NA* (06/11/19 4:44 AM) Negative 06/11/2019 [facility] IMMUNOLOGY Hep A IgM Negat adrian *NA* (06/11/19 4:44 AM) Negative 06/11/2019 [facility] DRUG SCREEN U Amph Scr Nega tive *NA* (06/11/19 3:00 AM) Negative 06/11/2019 [facility] DRUG SCREEN U Yenifer Scr Nega tive *NA* (06/11/19 3:00 AM) Negative 06/11/2019 [facility] DRUG SCREEN U Benzodiaz Scr Posi tive *ABN* (06/11/19 3:00 AM) Negative 06/11/2019 [facility] DRUG SCREEN U Cocaine Scr Nega tive *NA* (06/11/19 3:00 AM) Negative 06/11/2019 [facility] DRUG SCREEN U Cannab Scr Nega tive *NA* (06/11/19 3:00 AM) Negative 06/11/2019 [facility] DRUG SCREEN U Opiate Scr Posi tive *ABN* (06/11/19 3:00 AM) Negative 06/11/2019 [facility] DRUG SCREEN U Phencyclidine Scr Nega tive *NA* (06/11/19 3:00 AM) Negative 06/11/2019 [facility] DRUG SCREEN UDS Note See Note (06/11/19 3:00 AM) 06/11/2019 [facility] DRUG SCREEN U Methadone Scr Nega tive *NA* (06/11/19 3:00 AM) Negative 06/11/2019 [facility] DRUG SCREEN U Propoxyph Scr Nega tive *NA* (06/11/19 3:00 AM) Negative 06/11/2019 [facility] PENICILLIN:SUSC:PT:ISOLATE:ORDQN:ZANE Gram Stain Report Moderate WBC's Rare Gram Positive Cocci In Clusters Critical Results Called To: Ms. Fausto RN, [id number], [id number] At: 06/10/2019 19:35 Called By: FREDDY Read Back Ok 06/10/2019 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 06/10/2019 [facility] PENICILLIN:SUSC:PT:ISOLATE:ORDQN:ZANE Staphylococcus aureus Staphylococcus aureus 06/10/2019 [facility] Culture: Anaerobic Many Anaerobic Gram Positive Cocci , Identified As: Peptoniphilus indolicus 06/10/2019 [facility] CHEM PANEL Magnesium Lvl 1.8 1.8 - 2.4 06/10/2019 [facility] CHEM PANEL Phosphorus 1.9 2.5 - 4.5 06/10/2019 [facility] CHEM PANEL Lactic Acid Lvl 0.9 0.5 - 2.2 06/10/2019 [facility] HEMATOLOGY RBC Morph Ping l (06/09/19 11:38 PM) Normal 06/10/2019 [facility] HEMATOLOGY Plt Morph Ping l (06/09/19 11:38 PM) Normal 06/10/2019 [facility] HEMATOLOGY Segs 75.6 45.0 - 75.0 06/10/2019 [facility] HEMATOLOGY Lymphocytes 13.6 20.0 - 40.0 06/10/2019 [facility] HEMATOLOGY Monocytes 9.1 2.0 - 12.0 06/10/2019 [facility] HEMATOLOGY Eosinophils 1.4 0.0 - 4.0 06/10/2019 [facility] HEMATOLOGY Basophils 0.3 0.0 - 1.0 06/10/2019 [facility] HEMATOLOGY Neutrophils # 18.7 1.5 - 8.1 06/10/2019 [facility] HEMATOLOGY Lymphocytes # 3.4 1.0 - 5.5 06/10/2019 [facility] HEMATOLOGY Monocytes # 2.2 0.0 - 0.8 06/10/2019 [facility] HEMATOLOGY Eosinophils # 0.3 0.0 - 0.5 06/10/2019 [facility] HEMATOLOGY Basophils # 0.1 0.0 - 0.2 06/10/2019 [facility] BLOOD BANK RESULTS ABO/Rh O POS 06/10/2019 [facility] BLOOD BANK RESULTS Antibody Scrn Negative (06/09/19 11:35 PM) 06/10/2019 [facility] HEMATOLOGY Segs-Bands # 10.1 1.5 - 8.1 12/15/2017 [facility] HEMATOLOGY Lymphocytes 19.9 20.0 - 40.0 12/15/2017 [facility] HEMATOLOGY Segs 54.9 45.0 - 75.0 12/15/2017 [facility] HEMATOLOGY Monocytes 9.8 2.0 - 12.0 12/15/2017 [facility] HEMATOLOGY Eosinophils 15.3 0.0 - 4.0 12/15/2017 [facility] HEMATOLOGY Basophils 0.1 0.0 - 1.0 12/15/2017 [facility] HEMATOLOGY Lymphocytes # 3.7 1.0 - 5.5 12/15/2017 [facility] HEMATOLOGY Monocytes # 1.8 0.0 - 0.8 12/15/2017 [facility] HEMATOLOGY Eosinophils # 2.8 0.0 - 0.5 12/15/2017 [facility] Basophils # 0.0 0.0 - 0.2 12/15/2017 [facility] MPV 8.1 7.4 - 10.4 12/15/2017 [facility] MCH 29.1 27.0 - 31.0 12/15/2017 [facility] MCHC 34.4 32.0 - 36.0 12/15/2017 [facility] RDW 15.8 11.5 - 14.5 12/15/2017 [facility] Platelet 954 133 - 450 12/15/2017 [facility] MCV 84.5 80.0 - 94.0 12/15/2017 [facility] WBC 18.4 3.7 - 10.4 12/15/2017 [facility] Hgb 8.7 14.0 - 18.0 12/15/2017 [facility] RBC 3.00 4.70 - 6.10 12/15/2017 [facility] Hct 25.3 42.0 - 54.0 12/15/2017 [facility] Monocytes 11.6 2.0 - 12.0 12/15/2017 [facility] Eosinophils 15.1 0.0 - 4.0 12/15/2017 [facility] Basophils 0.7 0.0 - 1.0 12/15/2017 [facility] Segs 52.6 45.0 - 75.0 12/15/2017 [facility] Lymphocytes 20.0 20.0 - 40.0 12/15/2017 [facility] CHEM PANEL Glucose Lvl 88 70 - 99 12/14/2017 [facility] CHEM PANEL Chloride Lvl 99 95 - 109 12/14/2017 [facility] CHEM PANEL BUN 16 7 - 22 12/14/2017 [facility] CHEM PANEL Sodium Lvl 135 135 - 145 12/14/2017 [facility] CHEM PANEL Creatinine Lvl 0.90 0.50 - 1.40 12/14/2017 [facility] CHEM PANEL Calcium Lvl 8.8 8.5 - 10.5 12/14/2017 [facility] CHEM PANEL CO2 27 24 - 32 12/14/2017 [facility] CHEM PANEL eGFR 106 12/14/2017 Result Comment: [...] should be multiplied by the estimated BMI. [facility] CHEM PANEL Potassium Lvl 3.7 3.5 - 5.1 12/14/2017 [facility] CHEM PANEL AGAP 12.7 10.0 - 20.0 12/14/2017 [facility] HEMATOLOGY MPV 8.0 7.4 - 10.4 12/14/2017 [facility] Platelet 802 133 - 450 12/14/2017 [facility] RDW 15.4 11.5 - 14.5 12/14/2017 [facility] MCHC 31.2 32.0 - 36.0 12/14/2017 [facility] MCH 27.0 27.0 - 31.0 12/14/2017 [facility] Hct 26.6 42.0 - 54.0 12/14/2017 [facility] MCV 86.6 80.0 - 94.0 12/14/2017 [facility] Hgb 8.3 14.0 - 18.0 12/14/2017 [facility] RBC 3.07 4.70 - 6.10 12/14/2017 [facility] WBC 19.5 3.7 - 10.4 12/14/2017 [facility] Polychrom Moder ate *ABN* (12/14/17 4:28 AM) None Seen 12/14/2017 [facility] Segs 56.0 45.0 - 75.0 12/14/2017 [facility] Bands 1.0 0.0 - 11.0 12/14/2017 [facility] Monocytes # 2.0 0.0 - 0.8 12/14/2017 [facility] Eosinophils # 2.1 0.0 - 0.5 12/14/2017 [facility] Plt Morph Ping l (12/14/17 4:28 AM) 12/14/2017 [facility] Lymphocytes # 4.3 1.0 - 5.5 12/14/2017 [facility] HEMATOLOGY Lymphocytes 21.0 20.0 - 40.0 12/14/2017 [facility] HEMATOLOGY Eosinophils 11.0 0.0 - 4.0 12/14/2017 [facility] HEMATOLOGY Atypical Lymphs 1.0 <=0.0 % 12/14/2017 [facility] HEMATOLOGY Monocytes 10.0 2.0 - 12.0 12/14/2017 [facility] HEMATOLOGY Segs-Bands # 11.1 1.5 - 8.1 12/14/2017 [facility] CHEM PANEL Phosphorus 3.0 2.5 - 4.5 12/13/2017 [facility] CHEM PANEL Magnesium Lvl 2.0 1.8 - 2.4 12/13/2017 [facility] ELECTROLYTES AGAP 11.9 10.0 - 20.0 12/13/2017 [facility] ELECTROLYTES eGFR 84 12/13/2017 Result Comment: The [...] should be multiplied by the estimated BMI. [facility] ELECTROLYTES BUN 18 7 - 22 12/13/2017 [facility] ELECTROLYTES Glucose Lvl 87 70 - 99 12/13/2017 [facility] ELECTROLYTES Potassium Lvl 3.9 3.5 - 5.1 12/13/2017 [facility] ELECTROLYTES Creatinine Lvl 1.1 0 0.50 - 1.40 12/13/2017 [facility] ELECTROLYTES Sodium Lvl 135 135 - 145 12/13/2017 [facility] ELECTROLYTES Chloride Lvl 98 95 - 109 12/13/2017 [facility] ELECTROLYTES Calcium Lvl 8.8 8.5 - 10.5 12/13/2017 [facility] ELECTROLYTES CO2 29 24 - 32 12/13/2017 [facility] HEMATOLOGY INR 1.10 0.85 - 1.17 12/13/2017 [facility] PT 14.2 12.0 - 14.7 12/13/2017 [facility] PTT 35.0 22.9 - 35.8 12/13/2017 [facility] Basophils # 0.1 0.0 - 0.2 12/13/2017 [facility] Eosinophils # 1.5 0.0 - 0.5 12/13/2017 [facility] Lymphocytes # 1.7 1.0 - 5.5 12/13/2017 [facility] Segs-Bands # 11.5 1.5 - 8.1 12/13/2017 [facility] Basophils 0.4 0.0 - 1.0 12/13/2017 [facility] Monocytes # 2.2 0.0 - 0.8 12/13/2017 [facility] MPV 8.0 7.4 - 10.4 12/13/2017 [facility] Platelet 629 133 - 450 12/13/2017 [facility] RDW 15.4 11.5 - 14.5 12/13/2017 [facility] MCHC 33.5 32.0 - 36.0 12/13/2017 [facility] MCH 28.7 27.0 - 31.0 12/13/2017 [facility] RBC 2.99 4.70 - 6.10 12/13/2017 [facility] MCV 85.6 80.0 - 94.0 12/13/2017 [facility] Hgb 8.6 14.0 - 18.0 12/13/2017 [facility] WBC 17.1 3.7 - 10.4 12/13/2017 [facility] Hct 25.6 42.0 - 54.0 12/13/2017 [facility] Bands 1.0 0.0 - 11.0 12/13/2017 [facility] Eosinophils # 2.1 0.0 - 0.5 12/13/2017 [facility] Polychrom Moder ate *ABN* (12/13/17 4:43 AM) None Seen 12/13/2017 [facility] Atypical Lymphs 0.0 <=0.0 % 12/13/2017 [facility] Plt Morph Ping l (12/13/17 4:43 AM) 12/13/2017 [facility] Segs-Bands # 12.0 1.5 - 8.1 12/13/2017 [facility] HEMATOLOGY Monocytes # 1.9 0.0 - 0.8 12/13/2017 [facility] HEMATOLOGY Lymphocytes # 1.2 1.0 - 5.5 12/13/2017 [facility] PARATHYROID PROFILE Ca Ion WB 1.07 1.05 - 1.25 12/13/2017 [facility] PARATHYROID PROFILE Ca Norm WB 1.10 1.05 - 1.25 12/13/2017 [facility] CHEM PANEL Magnesium Lvl 2.0 1.8 - 2.4 12/12/2017 [facility] CHEM PANEL Phosphorus 3.0 2.5 - 4.5 12/12/2017 [facility] ELECTROLYTES AGAP 13.3 10.0 - 20.0 12/12/2017 [facility] ELECTROLYTES eGFR 68 12/12/2017 Result Comment: The [...] should be multiplied by the estimated BMI. [facility] ELECTROLYTES Calcium Lvl 8.9 8.5 - 10.5 12/12/2017 [facility] ELECTROLYTES BUN 19 7 - 22 12/12/2017 [facility] ELECTROLYTES Glucose Lvl 97 70 - 99 12/12/2017 [facility] ELECTROLYTES Potassium Lvl 3.3 3.5 - 5.1 12/12/2017 [facility] ELECTROLYTES CO2 33 24 - 32 12/12/2017 [facility] ELECTROLYTES Sodium Lvl 135 135 - 145 12/12/2017 [facility] ELECTROLYTES Chloride Lvl 92 95 - 109 12/12/2017 [facility] ELECTROLYTES Creatinine Lvl 1.3 0 0.50 - 1.40 12/12/2017 [facility] HEMATOLOGY PTT 40.2 22.9 - 35.8 12/12/2017 [facility] HEMATOLOGY INR 1.26 0.85 - 1.17 12/12/2017 [facility] HEMATOLOGY PT 15.9 12.0 - 14.7 12/12/2017 [facility] HEMATOLOGY Basophils # 0.1 0.0 - 0.2 12/12/2017 [facility] PARATHYROID PROFILE Ca Norm WB 1.10 1.05 - 1.25 12/12/2017 [facility] PARATHYROID PROFILE Ca Ion WB 1.06 1.05 - 1.25 12/12/2017 [facility] HEMATOLOGY NRBC 1 12/11/2017 [facility] Plt Morph Ping l (12/11/17 3:17 AM) 12/11/2017 [facility] HEMATOLOGY RBC Morph Ping l (12/11/17 3:17 AM) 12/11/2017 [facility] HEMATOLOGY Bands 2.0 0.0 - 11.0 12/11/2017 [facility] Atypical Lymphs 0.0 <=0.0 % 12/11/2017 [facility] URINE AND STOOL UA Urobilinogen <=1.0 0.1 - 1.0 12/10/2017 [facility] URINE AND STOOL UA Glucose 150 12/10/2017 [facility] URINE AND STOOL UA Color Ltyellow 12/10/2017 [facility] URINE AND STOOL UA RBC 1 0 - 2 12/10/2017 [facility] URINE AND STOOL UA WBC 1 0 - 5 12/10/2017 [facility] URINE AND STOOL UA Blood Small *ABN* (12/10/17 6:58 PM) Negative 12/10/2017 [facility] URINE AND STOOL UA Ketones Negative mg/dL Negative mg/dL 12/10/2017 [facility] URINE AND STOOL UA Bili Negative *NA* (12/10/17 6:58 PM) Negative 12/10/2017 [facility] URINE AND STOOL UA Sq Epi Occasional /LPF Few /LPF 12/10/2017 [facility] URINE AND STOOL UA Leuk Est Negative (12/10/17 6:58 PM) Negative 12/10/2017 [facility] URINE AND STOOL UA Turbidity Clear (12/10/17 6:58 PM) Clear 12/10/2017 [facility] URINE AND STOOL UA pH 7.0 5.0 - 8.0 12/10/2017 [facility] URINE AND STOOL UA Protein 30 mg/dL Negative mg/dL 12/10/2017 [facility] URINE AND STOOL UA Spec Grav 1.009 <=1.030 12/10/2017 [facility] URINE AND STOOL UA Nitrite Negative (12/10/17 6:58 PM) Negative 12/10/2017 [facility] Gram Stain Report Less Than 25 Sq uamous Epithelial Cells/Lpf Rare WBC's Few Gram Positive Cocci Few Gram Positive Rods Good Quality Specimen 12/10/2017 [facility] Culture: Respiratory w/Gram Stain F ew Yeast Normal Respiratory Judit Isolated 12/10/2017 [facility] CHEM PANEL Procalcitonin Lvl 4.32 0.00 - 0.10 12/10/2017 Result Comment: Critical Result(s) fermin d to JOSÉ AGUILAR at 12/10/2017 14:20 byTMT. Read back OK. [facility] CHEM PANEL Magnesium Lvl 1.5 1.8 - 2.4 12/10/2017 [facility] PARATHYROID PROFILE Ca Norm WB 1.06 1.05 - 1.25 12/10/2017 [facility] PARATHYROID PROFILE Ca Ion WB 1.00 1.05 - 1.25 12/10/2017 [facility] CHEM PANEL Phosphorus 3.3 2.5 - 4.5 12/09/2017 [facility] HEMATOLOGY PTT 30.7 22.9 - 35.8 12/09/2017 [facility] HEMATOLOGY INR 1.20 0.85 - 1.17 12/09/2017 [facility] HEMATOLOGY PT 15.3 12.0 - 14.7 12/09/2017 [facility] BLOOD BANK RESULTS RBC product Product available 3 (12/09/17 3:49 AM) 12/09/2017 Result Comment: 12/09/2017 0 4:01 SAMATHEW
Blood available, notified Crowe.Caitlyn at _12/09/2017 04:01 by SM. [facility] CHEM PANEL Bili Total 0.2 0.2 - 1.3 12/09/2017 [facility] CHEM PANEL Globulin 2.7 2.7 - 4.2 12/09/2017 [facility] CHEM PANEL AST 48 0 - 37 12/09/2017 [facility] CHEM PANEL Alk Phos 32 39 - 136 12/09/2017 [facility] CHEM PANEL A/G Ratio 0.8 0.7 - 1.6 12/09/2017 [facility] CHEM PANEL ALT 27 0 - 65 12/09/2017 [facility] CHEM PANEL Albumin Lvl 2.1 3.5 - 5.0 12/09/2017 [facility] CHEM PANEL Total Protein 4.8 6.4 - 8.4 12/09/2017 [facility] CHEM PANEL B/C Ratio 13 6 - 25 12/09/2017 [facility] CHEM PANEL Lactic Acid Lvl 1.3 0.5 - 2.2 12/08/2017 [facility] CHEM PANEL Procalcitonin Lvl 0.08 0.00 - 0.10 12/08/2017 [facility] HEMATOLOGY Fibrinogen Lvl 327 230 - 510 12/08/2017 [facility] CHEM PANEL AST 39 0 - 37 12/08/2017 [facility] CHEM PANEL Alk Phos 35 39 - 136 12/08/2017 [facility] CHEM PANEL Bili Total 0.5 0.2 - 1.3 12/08/2017 [facility] CHEM PANEL A/G Ratio 0.9 0.7 - 1.6 12/08/2017 [facility] CHEM PANEL Globulin 2.9 2.7 - 4.2 12/08/2017 [facility] CHEM PANEL Albumin Lvl 2.5 3.5 - 5.0 12/08/2017 [facility] CHEM PANEL ALT 27 0 - 65 12/08/2017 [facility] CHEM PANEL B/C Ratio 9 6 - 25 12/08/2017 [facility] CHEM PANEL Total Protein 5.4 6.4 - 8.4 12/08/2017 [facility] CHEM PANEL Lactic Acid Lvl 2.5 0.5 - 2.2 12/08/2017 [facility] CARDIAC ENZYMES Troponin-I <0.02 0.00 - 0.40 12/08/2017 [facility] HEMATOLOGY Fibrinogen Lvl 283 230 - 510 12/08/2017 [facility] BLOOD BANK RESULTS FFP product Product available (12/08/17 9:08 AM) 12/08/2017 [facility] BLOOD BANK RESULTS RBC product Product available (12/08/17 9:03 AM) 12/08/2017 [facility] IMMUNOLOGY EBV VCA IgG 4.8 <=0.8 AI 12/08/2017 [facility] EBV VCA IgM 1.3 <=0.8 AI 12/08/2017 [facility] IMMUNOLOGY HIV Ag/Ab 4th Gen Negat adrian *NA* (12/08/17 8:12 AM) Negative 12/08/2017 [facility] EBV VCA IgM 1.7 <=0.8 AI 12/08/2017 [facility] CHEM PANEL Lactic Acid Lvl 1.5 0.5 - 2.2 12/08/2017 [facility] CHEM PANEL Bili Total 0.5 0.2 - 1.3 12/08/2017 [facility] CHEM PANEL Total Protein 5.0 6.4 - 8.4 12/08/2017 [facility] CHEM PANEL Albumin Lvl 2.4 3.5 - 5.0 12/08/2017 [facility] CHEM PANEL B/C Ratio 13 6 - 25 12/08/2017 [facility] CHEM PANEL Alk Phos 34 39 - 136 12/08/2017 [facility] CHEM PANEL ALT 19 0 - 65 12/08/2017 [facility] CHEM PANEL AST 20 0 - 37 12/08/2017 [facility] CHEM PANEL A/G Ratio 0.9 0.7 - 1.6 12/08/2017 [facility] CHEM PANEL Globulin 2.6 2.7 - 4.2 12/08/2017 [facility] HEMATOLOGY RBC Morph Ping l (12/08/17 6:45 AM) 12/08/2017 [facility] HEMATOLOGY Max Amplitude Rapid 57 52 - 71 12/08/2017 [facility] HEMATOLOGY G-value Rapid 6.6 5.0 - 11.6 12/08/2017 [facility] HEMATOLOGY [place] Rapid 0.6 12/08/2017 [facility] HEMATOLOGY Estimated % Lysis Rapid 2 .9 0.0 - 7.5 12/08/2017 [facility] HEMATOLOGY R-time Rapid 0.7 0.4 - 0.7 12/08/2017 [facility] HEMATOLOGY Angle Rapid 73 64 - 80 12/08/2017 [facility] HEMATOLOGY K-time Rapid 1.4 0.6 - 2.3 12/08/2017 [facility] HEMATOLOGY ACT (TEG) Rapid 113 86 - 118 12/08/2017 [facility] BLOOD BANK RESULTS Platelet product Product available (12/08/17 5:41 AM) 12/08/2017 [facility] BLOOD BANK RESULTS FFP product Product available 2 (12/08/17 5:41 AM) 12/08/2017 Result Comment: 12/08/2017 0 6:12 SAMATHEW
Blood available, notified Americo at _12/08/2017 06:12 by _SM. [facility] BLOOD BANK RESULTS RBC product Product available (12/08/17 5:41 AM) 12/08/2017 [facility] BACTERIAL - SEROLOGY Strep pneumonia e Ag Negative (12/08/17 4:27 AM) Negative 12/08/2017 [facility] BACTERIAL - SEROLOGY Source Strep Urine *NA* (12/08/17 4:27 AM) 12/08/2017 [facility] CARDIAC ENZYMES Troponin-I <0.02 0.00 - 0.40 12/08/2017 [facility] HEMATOLOGY FSP <5 ug/ml <5 ug/ml 12/08/2017 [facility] HEMATOLOGY Fibrinogen Lvl 253 230 - 510 12/08/2017 [facility] HEMATOLOGY D-Dimer 0.45 12/08/2017 [facility] IMMUNOLOGY Log10 HIV1 <1.3 12/08/2017 [facility] Vir Ld-HIV1 RNA Not D etected (12/08/17 4:27 AM) 12/08/2017 [facility] Craig Scr Posit adrian *ABN* (12/08/17 4:27 AM) Negative 12/08/2017 [facility] URINE AND STOOL UA Glucose 50 12/08/2017 [facility] URINE AND STOOL UA Color Yellow 12/08/2017 [facility] URINE AND STOOL UA Sq Epi None Seen 12/08/2017 [facility] URINE AND STOOL UA Urobilinogen 2.0 0.1 - 1.0 12/08/2017 [facility] URINE AND STOOL UA Blood Small *ABN* (12/08/17 2:30 AM) Negative 12/08/2017 [facility] URINE AND STOOL UA Bili Negative *NA* (12/08/17 2:30 AM) Negative 12/08/2017 [facility] URINE AND STOOL UA Ketones Negative mg/dL Negative mg/dL 12/08/[address] [facility] [address] URINE AND STOOL UA Mucus Few /LPF None Seen /LPF 12/08/2017 [facility] URINE AND STOOL UA RBC 6 0 - 2 12/08/2017 [facility] URINE AND STOOL UA Spec Grav 1.021 <=1.030 12/08/2017 [facility] URINE AND STOOL UA Turbidity Slight *ABN* (12/08/17 2:30 AM) Clear 12/08/2017 [facility] URINE AND STOOL UA Protein Negative mg/dL Negative mg/dL 12/08/[address] [facility] [address] URINE AND STOOL UA pH 5.0 5.0 - 8.0 12/08/2017 [facility] URINE AND STOOL UA Nitrite Negative (12/08/17 2:30 AM) Negative 12/08/2017 [facility] URINE AND STOOL UA WBC 1 0 - 5 12/08/2017 [facility] URINE AND STOOL UA Leuk Est Negative (12/08/17 2:30 AM) Negative 12/08/2017 [facility] BLOOD BANK RESULTS Cryo product Product available 1 (12/08/17 1:28 AM) 12/08/2017 Result Comment: 12/08/2017 0 2:00 SAMATHEW
Blood available, notified Alicia at _12/08/2017 02:00 by SM_. [facility] BACTERIAL - SEROLOGY MRSA by PCR Negative (12/07/17 11:11 PM) 12/08/2017 [facility] DRUG SCREEN U Amph Scr Nega tive *NA* (12/07/17 11:11 PM) Negative 12/08/2017 [facility] DRUG SCREEN U Cannab Scr Nega tive *NA* (12/07/17 11:11 PM) Negative 12/08/2017 [facility] DRUG SCREEN U Yenifer Scr Nega tive *NA* (12/07/17 11:11 PM) Negative 12/08/2017 [facility] DRUG SCREEN U Benzodia Scr Nega tive *NA* (12/07/17 11:11 PM) Negative 12/08/2017 [facility] DRUG SCREEN U Cocaine Scr Nega tive *NA* (12/07/17 11:11 PM) Negative 12/08/2017 [facility] DRUG SCREEN U Opiate Scr Posi tive *ABN* (12/07/17 11:11 PM) Negative 12/08/2017 [facility] DRUG SCREEN U Phencyc Scr Nega tive *NA* (12/07/17 11:11 PM) Negative 12/08/2017 [facility] DRUG SCREEN UDS Note See Note (12/07/17 11:11 PM) 12/08/2017 [facility] BLOOD BANK RESULTS Antibody Scrn Negative (12/07/17 11:04 PM) 12/08/2017 [facility] BLOOD BANK RESULTS ABO/Rh O POS 12/08/2017 [facility] CARDIAC ENZYMES BNP 3 <=100 pg/mL 12/08/2017 [facility] CARDIAC ENZYMES Troponin-I <0.02 0.00 - 0.40 12/08/2017 [facility] CHEM PANEL Procalcitonin Lvl <0.05 0.00 - 0.10 12/08/2017 [facility] LIPIDS VLDL 25 12/08/2017 [facility] LIPIDS LDL (Calculated) 95 <=99 mg/dL 12/08/2017 [facility] LIPIDS Chol 135 <=199 mg/dL 12/08/2017 [facility] LIPIDS HDL 15 >=61 mg/dL 12/08/2017 [facility] LIPIDS CHD Risk 9.00 4.00 - 7.30 12/08/2017 [facility] LIPIDS Trig 123 <=149 mg/dL 12/08/2017 [facility] SPECIAL CHEMISTRY Hgb A1C 5.1 <=5.6 % 12/08/2017 [facility] Pathology Reports No Data Provided for This Section Diagnostic Reports Report Value Date Source Abdomen AP DX Patient Name: SE DIANA ROUSE : 1975; Age: 42 years y/o Male MR: [id number] Study: Abdomen AP DX dated 12/13/2017. Clinical Indication: Constipation - hiccups post splectomy; Comparison: None External roni overlie the abdomen. Moderate amount of stool seen in the right colon and descending colon. Nonpathologic bowel gas pattern without evidence of bowel obstruction. Tiny calcification left lower pelvis likely phlebolith. SL: HARRISODERSTROM-PC 12/13/2017 [facility] Chest 1view DX Clinical Indica tion: resp distress Comparison: 12/11/2017 FINDINGS: The frontal chest radiograph shows normal lung volumes with hazy opacities within the lower lobes, stable. The cardiomediastinal contours are normal. The trachea is midline. There are no clinically significant osseous abnormalities noted. IMPRESSION: Stable bibasilar opacities representing atelectasis versus pneumonia. SL: [id number] 12/12/2017 [facility] Chest 1view DX XR CHEST 1 VIEW [...] to the prior day. SL: LS-M 12/11/2017 [facility] Chest 1view DX EXAM: Chest 1vi ew DX DATE: 12/10/2017 3:10 AM CDT INDICATION: Shortness of breath. COMPARISON: 12/09/2017. IMPRESSION: Stable cardiac silhouette and mediastinum. Interval improvement of the extensive bilateral airspace opacities. No significant pleural effusion or pneumothorax detected. SL: [id number] 12/10/2017 [facility] Chest 1view DX EXAM: Chest 1vi ew DX DATE: 12/09/2017 3:00 AM CDT INDICATION: Respiratory failure - Respiratory failure COMPARISON: 12/08/2017. IMPRESSION: Stable mildly enlarged cardiac silhouette and prominent mediastinum. Interval worsening extensive bilateral airspace opacities are present. Low lung volume. No significant pneumothorax detected. SL: [id number] 12/09/2017 [facility] Chest 1view DX 1 VIEW CXR. POR [...] interval. END OF IMPRESSION SL: WR1-M 12/08/2017 [facility] Chest 1view DX 1 VIEW CXR. POR TABLE EXAM 10:55 PM HISTORY: Shortness of breath. COMPARISON: None. Shallow inspiration with bibasal atelectasis. Upper lungs clear. Cardiomediastinal silhouette normal considering portable technique. Bones intact. IMPRESSION: Shallow inspiration with bibasal atelectasis. END OF IMPRESSION SL: WR1-M 12/07/2017 [facility] Consultation Notes No Data Provided for This Section Discharge Summaries No Data Provided for This Section History and Physicals No Data Provided for This Section Vital Signs Vital Sign Value Date Comments Source Temperature Oral (F) 98.4 F 06/14/2019 [facility] Heart Rate 81 06/14/2019 [facility] Respitory Rate 19 06/14/2019 [facility] Systolic (mm Hg) 136 06/14/2019 [facility] Diastolic (mm Hg) 73 06/14/2019 [facility] Temperature Oral (F) 98.1 F 06/14/2019 [facility] Heart Rate 85 06/14/2019 [facility] Respitory Rate 18 06/14/2019 [facility] Systolic (mm Hg) 147 06/14/2019 [facility] Diastolic (mm Hg) 78 06/14/2019 [facility] Heart Rate 71 06/14/2019 [facility] Respitory Rate 16 06/14/2019 [facility] Systolic (mm Hg) 139 06/14/2019 [facility] Diastolic (mm Hg) 71 06/14/2019 [facility] Temperature Oral (F) 98 F 06/14/2019 [facility] Height 175.2 cm 06/10/2019 [facility] Weight 90.909 06/10/2019 [facility] BMI Calculated 29.62 06/10/2019 [facility] Height 175.26 cm 06/10/2019 [facility] Weight 90.909 06/10/2019 [facility] Height 175.26 cm 06/10/2019 [facility] BMI Calculated 29.6 06/10/2019 [facility] Weight 90.909 06/10/2019 [facility] Heart Rate 101 12/15/2017 [facility] Respitory Rate 18 12/15/2017 [facility] Systolic (mm Hg) 103 12/15/2017 [facility] Diastolic (mm Hg) 61 12/15/2017 [facility] Temperature Oral (F) 98.0 F 12/15/2017 [facility] Systolic (mm Hg) 116 12/15/2017 [facility] Diastolic (mm Hg) 73 12/15/2017 [facility] Respitory Rate 18 12/15/2017 [facility] [facility] Heart Rate 98 12/15/2017 [facility] Temperature Oral (F) 98.1 F 12/15/2017 [facility] Systolic (mm Hg) 110 12/15/2017 [facility] Diastolic (mm Hg) 69 12/15/2017 [facility] Respitory Rate 19 12/15/2017 [facility] Heart Rate 86 12/15/2017 [facility] Temperature Oral (F) 98.1 F 12/15/2017 [facility] BMI Calculated 27.51 12/08/2017 [facility] Weight 84.5 12/08/2017 [facility] Height 175.26 cm 12/08/2017 [facility] Encounters Location Location Details Encounter Type Encounter Number Reason For Visit Attending Provider ADM Date DC Date Status Source [facility] Inpatient [id number] Allan Rinaldi 12/08/2017 12/15/2017 [facility] Inpatient [id number] Snato Reina 06/10/2019 06/14/2019 [facility] Procedures Procedure Code Date Perfomer Comments Source Colonoscopy [id number] 09/18/2007 [facility] Tonsillectomy [id number] 09/18/1981 [facility] Splenectomy [id number] [facility] Assessment and Plan Assessment and Plan [...] erythema, and warmth. He first went to [facility] and had the right swelling I&D and subsequently packed. He was then prescribed Bactrim (day 7) and clindamycin (day 3) from [facility]. Bilateral swellings have continued to worsen and he developed fever (102), nausea, and non bloody emesis yesterday. He was seen at [facility] today and was referred here after [...] 160 mg oral tablet :1 tab, PO, [id number], for 6 day, 12 tab, 0 Refill(s) [...] Rodger Balderrama MD General Surgery PGY-1 MSO# [id number] Pager #[phone] Addendum by Prabhakar Peña MD on 06/15/2019 [...] ppx heparin Brielle Dowd MD Anesthesia, PGY-1 [facility] ATTENDING ADDENDUM: I have personally seen and examined this patient with Dr. Dowd. Furthermore I have reviewed the resident's note and I agree with the above exam, assessment, and plan. I have reviewed all relevant imaging and interpretted it myself. Gregor. Nuno [id number] 06/14/2019 [facility] Extracted from:Title: FMS Progress Note Author: [...] Rinaldi. Polina Carlson MD MPH PGY1 MSO [id number] Addendum by Allan Rinaldi MD on 12/15/2017 12:47 CDT I was physically present during the irene portions of the patient evaluation and the medical decision making when performed by the resident and I concur with the above documented decisions made by the team under my guidance. Extracted from:Title: Trauma Author: German Carlson MD Date: 12/08/17 Date of Service: 12/08/17 Attending: Robyn Medical Coding Technician(s): Cachorro MASON; Ge GRESHAM PreOp Dx: splenic [...] recommended. Pt agreeable German Carlson MD MSO# [id number] 12/15/2017 [facility] Plan of Care No Data Provided for [...] at age: 20.0; entered on: 06/09/19 12/08/2017 [facility] Social History TypeResponse Alcohol Current, Type Beer. Frequency: Daily. Smoking Status Current every day smoker; Type: Cigarettes; Ready to change: Yes; Exposure to Tobacco Smoke None; Cigarette Smoking Last 365 Days Yes; Reg Smoking Cessation Counseling No; Tobacco use per day: 2; Started at age: 20.0; entered on: 12/08/17 12/08/2017 [facility] Family History No Data Provided for This Section Advance Directives No Data Provided for This Section Functional Status No Data Provided for This Section
--- OUTSIDE RECORDS SUMMARY | 2020-02-24 06:49 | XMS REPORT | Continuity of Care Document ---
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 Role Phone NO, PCP PCP Unavailable SHUKRI JENKINS Attphys Unavailable Jose TAPIA Attphys Unavailable Diony Reina Attphys Batsheva Rinaldi Attphys Diony Reina Admphys Batsheva Rinaldi Admphys Payers Payer Name Policy Type Policy Number Effective Date Expiration Date S ource Problems Condition Name Condition Details Condition Category Status Onset Date Resolution Date Last Treatment Date Treating Clinician Comments Source RIGHT THIGH ABSCESS RIGH T THIGH ABSCESS Active 06/09/2019 [facility] Diagnosis Active 2019-06-09 00:00:00 2019-06-09 23:50:00 Manda Cristina ABSCESS OF HIP ABSC ESS OF HIP Active 06/09/2019 [facility] Diagnosis Active 2019-06-09 00:00:00 2019-07-03 2 2:12:00 Manda Cristina LEFT SIDE PNEUMONIA, DEHYDRATION, POLYCT LEFT SIDE PNEUMONIA, DEHYDRATION, POLYCT Active 12/07/2017 [facility] Diagnosis Active 2017-12-07 00:00:00 2017-12-07 22:29:00 M tami Cristina HYPOTENSION, INTRAPERITONEAL HEMATOMA HYPOTENSION, INTRAPERITONEAL HEMATOMA Active 12/07/2017 [facility] Diagnosis Ac tive 2017-12-07 00:00:00 2017-12-12 16:01:00 M tami Cristina Abdominal pain Problem Active [facility] Pneumonia, unspecified organism Pneumonia, unspecified organism 03/23/2018 [facility] [place] 2018-03-23 12:1 7:40 [facility] Other shock Othe r shock 03/23/2018 [facility] [place] 2018-03-23 12:17:40 [facility] [place] Acute respiratory failure with hypoxia Acute respiratory failure with hypoxia 03/23/2018 [facility] [place] 2018-03-23 12:17:40 [facility] Hemoperitoneum Hemo peritoneum 03/23/2018 [facility] [place] 2018-03-23 12:17:40 [facility] Acute kidney failure, unspecified Acute kidney failure, unspecified 03/23/2018 [facility] [place] 2018-03-23 1 2:17:40 [facility] Acute posthemorrhagic anemia A cute posthemorrhagic anemia 03/23/2018 [facility] [place] 2018-03-23 12:1 7:40 [facility] Coagulation defect, unspecified Coagulation defect, unspecified 03/23/2018 [facility] [place] 2018-03-23 1 2:17:40 [facility] Hyperkalemia Hype rkalemia 03/23/2018 [facility] [place] 2018-03-23 12:17:40 [facility] Fluid overload, unspecified Fl uid overload, unspecified 03/23/2018 [facility] [place] 2018-03-23 12:17:4 0 [facility] Nicotine dependence, cigarettes, uncomplicated Nicotine dependence, cigarettes, uncomplicated 03/23/2018 [facility] [place] 2018-03-23 12:17:40 [facility] PNEUMONIA, UNSPECIFIED ORGANISM PNEUMONIA, UNSPECIFIED ORGANISM Active [facility] Diagnosis Active 2017-12-07 22:29 :00 [facility] DEHYDRATION DEHY DRATION Active [facility] Diagnosis Active 2017-12-07 22:29:00 [facility] HYPOTENSION, UNSPECIFIED HYPO TENSION, UNSPECIFIED Active [facility] Diagnosis Active 2017-12-12 16:01:00 [facility] HEMOPERITONEUM HEMO PERITONEUM Active [facility] Diagnosis Active 2017-12-12 16:01:00 [facility] CUTANEOUS ABSCESS OF LIMB, UNSPECIFIED CUTANEOUS ABSCESS OF LIMB, UNSPECIFIED Active [facility] Diagnosis Active 2019-07-03 22:12:00 [facility] Infarction of spleen Infa rction of spleen 12/20/2017 03/23/2018 [facility] Problem 2017-12-20 03:33:13 2018-03-23 12:1 7:40 2018-03-23 12:17:40 Manda Cristina Allergies, Adverse Reactions, Alerts Allergy Name Allergy Type Status Severity Reaction(s) Onset Date Inacti ve Date Treating Clinician Comments Source iodine DA Active SV 2020-01-30 00:00:00 [facility] iodine DA Active SV 2020-01-25 00:00:00 [facility] iodine DA Active SV 2013-08-30 00:00:00 [facility] Keflex Keflex Active [facility] ermann iodine iodine Active [facility] ermann Social History Social Habit Start Date Stop Date Quantity Comments Source Sex Assigned At [facility] Social History 2017-12-08 06:58:40 2017-12-08 06:58:40 [...] Cristina Docusate Sodium 50 MG / sennosides, CORRECTION 8.6 MG Oral Tablet 2019-06-14 17:32:00 Yes [...] actrim] 2019-06-14 17:32:00 Yes 1 tab, PO, [id number], X 6 day, # 12 tab, 0 [...] MG / Trimethoprim 160 MG Oral Tablet [Luis actrim] 2019-06-12 18:00:00 No Notes: One DS tablet = trimethoprim 160mg + sulfamethoxazole 800 mg Dose based on trimethoprim component On empty stomach with a glass of water. (Same As: Bactrim DS, Septra DS) Manda Gongann Robaxin 2019-06-12 14:00:00 No Notes: (Same as:Robaxin) Manda Cristina Tetrahydrocannabinol 2019-06-12 01:31:00 No Notes: (Same as: Marinol) Manda Cristina Dilaudid 2019-06-11 19:40:00 No 0.5 mg, Route: IVP, ONCE, Dosing Weight 90.909, kg, Priority: STAT, Start date: 06/11/19 14:40:00 CDT, Stop date: 06/11/19 14:40:00 CDT Manda Gongann gabapentin 300 MG Oral Capsule 2019-06-11 05:00:00 No Notes: (Same as: Neurontin) [facility] Acetaminophen 2019-06-11 05:00:00 No Notes: Infuse over 15 minutes Do not exceed 4gm/day of acetaminophen MEDICATION WASTE Product Size: 1000 mg Product Wasted: ___ mg Michael burciaga [place] Morphine 2019-06-11 02:00:00 No Not es: (Same as:MORPhine Sulfate) [facility] hydromorphone ([facility]) + sodium chloride ([facility]) 9 mL 2019-05-20 3 23:30:00 No Route: IV, Drug form: INJ, ONCE, Stop date: 18:30:00 CDT [facility] lidocaine ([facility]) 2019-06-10 23:24:00 No Route: IV, Drug form: INJ, ONCE, Stop date: 06/10/19 18:24:00 CDT [facility] propofol ([facility]) 2019-06-10 23:24:00 No Route: IV, Drug form: INJ, ONCE, Stop date: 06/10/19 18:24:00 CDT [facility] rocuronium ([facility]) 2019-06-10 23:24:00 No Route: IV, Drug form: INJ, ONCE, Stop date: 06/10/19 18:24:00 CDT [facility] succinylcholine ([facility]) 2019-06-10 23:24:00 No Route: IV, Drug form: INJ, ONCE, Stop date: 06/10/19 18:24:00 CDT [facility] fentaNYL ([facility]) 2019-06-10 23:24:00 No Route: IV, Drug form: INJ, ONCE, Stop date: 06/10/19 18:24:00 CDT [facility] Hydralazine 2019-06-10 23:16:00 No 10 mg, Route: IVP, Q20Min, Dosing Weight 90.909, kg, PRN Elevated BP, Start date: 06/10/19 18:16:00 CDT, Duration: 2 doses or times, Stop date: Limited # of times [facility] Labetalol 2019-06-10 23:16:00 No 10 mg, Route: IVP, Q5Min, Dosing Weight 90.909, kg, PRN Elevated BP, Start date: 06/10/19 18:16:00 CDT, Duration: 5 doses or times, Stop date: Limited # of times [facility] Oxycodone Hydrochloride 5 MG Oral Tablet 2019-06-10 23:16:00 No 5 mg, Route: PO, Drug form: TAB, Q4H, Dosing Weight 90.909, kg, PRN Pain Score 4- 6, Start date: 06/10/19 18:16:00 CDT, Duration: 30 day, Stop date: 07/10/19 18:15:00 CDT [facility] Hydromorphone 2019-06-10 23:16:00 No 0.5 mg, Route: IVP, Q5Min, Dosing Weight 90.909, kg, PRN Pain Score 7-10, Start date: 06/10/19 18:16:00 CDT, Duration: 4 doses or times, Stop date: Limited # of times [facility] Flumazenil 2019-06-10 23:16:00 No 0.2 mg, Route: IVP, PRN, Dosing Weight 90.909, kg, PRN Benzodiazepine Reversal, Initial dose, Start date: 06/10/19 18:16:00 CDT, Duration: 30 day, Stop date: 07/10/19 18:15:00 CDT [facility] Naloxone 2019-06-10 23:16:00 No 0.4 mg, Route: IVP, Q2MIN, Dosing Weight 90.909, kg, PRN Narcotic Reversal, Start date: 06/10/19 18:16:00 CDT, Duration: 8 doses or times, Stop date: Limited # of times [facility] Ondansetron 2019-06-10 23:16:00 No 4 mg, Route: IVP, ONCE, Dosing Weight 90.909, kg, PRN Nausea & Vomiting, Start date: 06/10/19 18:16:00 CDT [facility] midazolam (ANES) 2019-06-10 22:44:00 No Route: IV, Drug form: SOLN, ONCE, Stop date: 06/10/19 17:44:00 CDT tami [place] Lactated Ringers Injection IV (ANES) 1000 mL 2019-06-10 22:12:00 No Route: IV, Total Volume: 1,000, Start date: 06/10/19 17:12:00 CDT, Stop date: 06/10/19 18:12:00 CDT Manda Cristina remove patch 2019-06-10 22:00:00 No Notes: Remove patch 12 hours after application each day. Manda goyal Acetaminophen 300 MG / Codeine Phosphate 30 MG Oral Tablet 2019-06-10 20:46:00 No 1 tab, PO, Q6H, PRN pain, # 20 tab, 0 Refill(s) Manda Cristina vancomycin 2019-06-10 19:00:00 No 2001 mg: infuse over 2.5 hours For adult patients only: Round to nearest 250 mg per Medical Staff approval MEDICATION WASTE Product Size: 1000 mg Product Wasted: ___ mg Manda Jonnie Ondansetron 2 MG/ML Injectable Solution [Zofran] 2019-06-10 16:1 6:00 No Notes: (Same as: Zofran) * MEDICATION WASTE Product Size: 4 mg Product Wasted: ___ mg Manda Gongann Nicotine 2019-06-10 14:00:00 No Notes: (Same as: Habitrol) "Remove old patch before application of new patch" WASTE: F/P - P Waste Black; E - P Waste Black Manda Cristina remove patch 2019-06-10 14:00:00 No Notes: Remove old patch before application of new patch. WASTE: F/P - P Waste Black; E - P Waste Black Manda [place] Docusate Sodium 50 MG / sennosides, CORRECTION 8.6 MG Oral Tablet 2019-06-10 14:00:00 No Notes: (Same as Senokot-S) Equ iv. to Isis-Colace. Manda Gongann meropenem 2019-06-10 13:00:00 No Notes: (Same as: Merrem) . MEDICATION WASTE Product Size: 1000 mg Product Wasted: ___ mg Manda Jonnie pantoprazole 2019-06-10 12:30:00 No Notes: Tablet should not be chewed or crushed. (Same as: Protonix) [facility] Tylenol 2019-06-10 11:00:00 No Notes: Max acetaminophen 4000 mg/day (4 gm/day). (Same as: Tylenol Extra Strength) [facility] Tr[facility] 2019-06-10 11:00:00 No 50 mg, Route: PO, Drug form: TAB, Q6H, Dosing Weight 90.909, kg, Start date: 06/10/19 6:00:00 CDT, Duration: 30 day, Stop date: 07/10/19 0:00:00 CDT [facility] oripatrica Cristina Lidocaine Hydrochloride 0.05 MG/MG Transdermal Patch [Lidode rm] 2019-06-10 10:00:00 No Notes: Bon ly only once for up to 12 hours in a 24-hour period (12 hours on and 12 hours off). (Same as: Lidoderm) "Remove old patch before application of new patch" Maggi Cristina Vancomycin 2019-06-10 09:00:00 No 2001 mg: infuse over 2.5 hours [facility] heparin 2019-06-10 09:00:00 No Notes: porci ne heparin [facility] heparin sodium, porcine 2500 UNT/ML Injectable Solution 2019-06-10 07:00:00 No Notes: porcine heparin [facility] [place] Tramadol 2019-06-10 06:53:00 No Notes: Not to exceed 400mg/day. (Same As: Ultram) [facility] Vancomycin 2019-06-10 06:20:00 No 800 mg, Route: IV, ONCE, Dosing Weight 90.909, kg, Start date: 06/10/19 1:20:00 CDT, Stop date: 06/10/19 1:20:00 CDT, ABX Indication: Skin/Soft Tissue Infection [facility] Isolyte S PH 7.4 1,000 mL 2019-06-10 06:05:00 No Notes: (Same as: Isolyte S PH 7.4) [facility] meropenem 2019-06-10 05:37:00 No Notes: Same as Merrem MEDICATION WASTE Product Size: 500 mg Product Wasted: _0__ mg [facility] Morphine 2019-06-10 04:28:00 No Not es: (Same as:MORPhine Sulfate) [facility] ferrous sulfate 325 MG Oral Tablet 2017-12-15 16:57:00 Yes 325 mg = 1 tab, PO, TID, # 90 tab, 0 Refill(s) Me ankur Cristina chlorproMAZINE 25 mg oral tablet 2017-12-15 16:57:00 Yes 25 mg = 1 tab, PO, BID, # 10 tab, 0 Refill(s) Jg Cristina ferrous sulfate 2017-12-15 14:00:00 No Notes: Give with food. iron elemental [id number] as ferrous sulfate Dose=___mg elemental iron [facility] [place] meningococcal group A polysaccharide / m eningococcal group C polysaccharide / MENINGOCOCCAL POLYSACCHARIDE VACCINE GROUP W-135 / MENINGOCOCCAL POLYSACCHARIDE VACCINE GROUP Y 2017-12-14 21:39:00 No Notes: (Same as: Menomune A/C/Y/W-135) (meningococcal polysaccharide vaccine 0.5ml/dose INJ) WASTE: F/P - Black; E - Municipal Trash Bin Michael Gutierrezann Chlorpromazine 2017-12-13 18:00:00 No Notes: (Same As: Jerardo) Manda [place] Haemophilus influenzae type b strain 148 2, capsular polysaccharide inactivated tetanus toxoid conjugate vaccine 0.068 MG/ML Injectable Solution [ActHIB] 2017-12-13 16:00:00 No Notes: (Same as: Act Hib) Haemophilus Influenzae Conjugate Vaccine (tetanus toxid conjugate). [facility] Jonnie Chlorpromazine 2017-12-13 15:26:00 No Notes: (Same As: Thorsylvia) [facility] Jon[address] Protonix 2017-12-12 21:30:00 No 20 mg, Route: PO, Drug form: ECTAB, Before Dinner, Dosing Weight 84.5, kg, Start date: 12/12/17 16:30:00 CDT, Duration: 30 day, Stop date: 01/10/18 16:30:00 CDT [facility] Jonnie Miralax 2017-12-12 14:00:00 No Notes: Dissolve in 8 oz of water or juice. (Same as: Miralax) [facility] Janine nn Baclofen 2017-12-11 17:48:00 No Notes: (Norm e As: Lioresal) [facility] Jon[facility] Zosyn 2017-12-11 17:00:00 No Notes: (Same as: Zosyn) Dosing based on Piperacillin component MEDICATION WASTE Product Size: 3375 mg Product Wasted: ___ mg [facility] Jonnie Lasix 2017-12-11 02:00:00 No Notes: (Same as: Lasix) MEDICATION WASTE Product Size: 40 mg Product Wasted: ___ mg [facility] Tramadol 2017-12-10 16:45:00 No Notes: Not to exceed 400mg/day. (Same As: Ultram) [facility] Methadone 2017-12-10 16:45:00 No Notes: (Sa me as: Dolophine) [facility] Acetaminophen 2017-12-10 16:45:00 No Notes: Max acetaminophen 4000 mg/day (4 gm/day). (Same as: Tylenol Extra Strength) [facility] multivitamin 2017-12-10 14:00:00 No Notes: (Same as:Thera) WASTE: F/P - Black; E - Municipal Trash Bin Take with food. [facility] Thiamine 2017-12-10 14:00:00 No 100 mg, Route: PO, Daily, Dosing Weight 84.5, kg, Start date: 12/10/17 9:00:00 CDT, Duration: 5 day, Stop date: 12/14/17 9:00:00 CDT [facility] Folic Acid 2017-12-10 14:00:00 No Notes: (S lynn as: Folvite) [facility] Furosemide 2017-12-10 14:00:00 No 40 mg, Route: IVP, Drug form: INJ, Daily, Dosing Weight 84.5, kg, Start date: 12/10/17 9:00:00 CDT, Duration: 30 day, Stop date: 01/08/18 9:00:00 CDT [facility] Lasix 2017-12-10 13:15:00 No 40 mg, Route: IVP, Drug form: INJ, ONCE, Dosing Weight 84.5, kg, Start date: 12/10/17 8:15:00 CDT, Stop date: 12/10/17 8:15:00 CDT [facility] Acetaminophen 2017-12-09 23:00:00 No Notes: Max acetaminophen 4000 mg/day (4 gm/day). (Same as: Tylenol Extra Strength) [facility] Furosemide 2017-12-09 22:47:00 No 40 mg, [...] No Notes: (S lynn As: Vitamin B1) Manda Cristina Protonix 2017-12-09 12:30:00 No Notes: Tablet should not be chewed or crushed. (Same as: Protonix) Manda Cristina Lasix 2017-12-09 11:07:00 No Notes: (Same as: Lasix) MEDICATION WASTE Product Size: 40 mg Product Wasted: ___ mg Manda Cristina Acetaminophen 325 MG / Hydrocodone Bitartrate 5 MG Oral Tabl et [[place] 5/325] 2017-12-09 10:36:00 No Notes: (Same as: [place] 325/5) Do not exceed 4gm/day of acetaminophen. [facility] Janine nn Robitussin-AC oral syrup 2017-12-09 10:36:00 No Notes: (Same As: Robitussin AC) [facility] Jonnie sennosides, CORRECTION 2017-12-09 02:00:00 No Notes: (Same as: Senokot) [facility] Jon[facility] Docusate 2017-12-09 02:00:00 No Notes: (Same as: Colace) (Do Not Crush) [facility] Protonix 2017-12-09 00:55:00 No Notes: Tablet should not be chewed or crushed. (Same as: Protonix) [facility] Jonnie NS (Bolus) IV 2017-12-08 22:04:00 No 500 mL, 500 ml/hr, Infuse Over: 1 hr, Route: IV, 500, Drug form: INJ, ONCE, Priority: STAT, Dosing Weight 84.5 kg, Start date: 12/08/17 17:04:00 CDT, Stop date: 12/08/17 17:04:00 CDT [facility] Jonnie Zofran 2017-12-08 19:04:00 No Notes: (Same as: Kacy) MEDICATION WASTE Product Size: 4 mg Product Wasted: ___ mg [facility] diphtheria toxoid vaccine, inactivated / Haemophilus capsula r oligosaccharide 2017-12-08 19:00:00 No 0.5 ml, Route: IM, Drug Form: SOLN, Dosing Weight 84.5, kg, ONCALL, Within 24 hours, Start date: 12/08/17 14:00:00 CDT, Duration: 1 day, Stop date: 12/09/17 13:59:00 CDT [facility] meningococcal group A polysaccharide / m eningococcal group C polysaccharide / MENINGOCOCCAL POLYSACCHARIDE VACCINE GROUP W-135 / MENINGOCOCCAL POLYSACCHARIDE VACCINE GROUP Y 2017-12-08 19:00:00 No 0.5 ml, Route: SUB-Q, Dosing Weight 84.5, kg, ONCALL, Within 24 hours, Start date: 12/08/17 14:00:00 CDT [facility] pneumococcal capsular polysaccharide typ e 1 vaccine / pneumococcal capsular polysaccharide type 10A vaccine / pneumococcal capsular polysaccharide type 11A vaccine / pneumococcal capsular polysaccharide type 12F vaccine / pneumococcal capsular polysacchar 2017-12-08 18:27:00 No Notes: (Same as: Pneumovax 23) [facility] haemophilus b conjugate (PRP-T) vaccine 2017-12-08 18:00:00 No Notes: (Same as: Act Hib) Haemophilus Influenzae Conjugate Vaccine (tetanus toxid conjugate). [facility] acetaminophen 2017-12-08 17:39:00 No Notes: Infuse over 15 minutes Do not exceed 4gm/day of acetaminophen MEDICATION WASTE Product Size: 1000 mg Product Wasted: ___ mg [facility] [place] pneumococcal 13-valent vaccine intramuscular suspension 2017-12-08 17:00:00 No Notes: Shake well prior to use (Same as : Prevnar 13) [facility] Ipratropium [place] 0.2 MG/ML Inhalant Solution 2017-12-08 17:00 :00 No Notes: SEE RT DOCUMENTATION (Same as:Atrovenalejandro) [facility] meningococcal group A polysaccharide / m eningococcal group C polysaccharide / MENINGOCOCCAL POLYSACCHARIDE VACCINE GROUP W-135 / MENINGOCOCCAL POLYSACCHARIDE VACCINE GROUP Y 2017-12-08 17:00:00 No Notes: (Same as: Mekhi Garcia/C/Y/W-135) (meningococcal polysaccharide vaccine 0.5ml/dose INJ) WASTE: F/P [...] 11:47:00 CDT, Stop date: 12/08/17 11:47:00 [facility] [place] [facility] 2017-12-08 16:13:00 No Notes: Not to exceed 400mg/day. (Same As: Ultram) [facility] Ketorolac 2017-12-08 16:13:00 No 4 days MEDICATION WASTE Product Size: 30 mg Product Wasted: ___ mg [facility] celecoxib 2017-12-08 16:13:00 No Notes: NSAID. Please check indication. Not for seizure. (Same As: CeleBREX) [facility] pregabalin 2017-12-08 16:13:00 No Notes: (S lynn as: Lyrica) [facility] Acetaminophen 2017-12-08 16:13:00 No Notes: Infuse over 15 minutes Do not exceed 4gm/day of acetaminophen MEDICATION WASTE Product Size: 1000 mg Product Wasted: ___ mg Maggi Cristina Methadone 2017-12-08 16:13:00 No Notes: (Sa me as: Dolophine) [facility] metoprolol (ANES) 2017-12-08 15:08:00 No Route: IV, Drug form: INJ, ONCE, Stop date: 12/08/17 10:08:00 CDT [facility] glycopyrrolate (ANES) 2017-12-08 15:03:00 No Route: IV, Drug form: INJ, ONCE, Stop date: 12/08/17 10:03:00 CDT [facility] neostigmine (ANES) 2017-12-08 15:03:00 No Route: IV, Drug form: INJ, ONCE, Stop date: 12/08/17 10:03:00 CDT [facility] morphine Sulfate (ANES) 2017-12-08 15:03:00 No Route: IV, Drug form: INJ, ONCE, Stop date: 12/08/17 10:03:00 CDT [facility] calcium chloride ([facility]) 2017-12-08 14:58:00 No Route: IV, Drug form: INJ, ONCE, Stop date: 12/08/17 9:58:00 CDT [facility] ondansetron ([facility]) 2017-12-08 14:53:00 No Route: IV, Drug form: INJ, ONCE, Stop date: 12/08/17 9:53:00 [facility] 2017-12-08 14:43:00 No Route: IV, Drug form: INJ, ONCE, Stop date: 12/08/17 9:43:00 [facility] fenta[facility]L (ANES) 2017-12-08 14:43:00 No Route: IV, Drug form: INJ, ONCE, Stop date: 12/08/17 9:43:00 [facility] ro[facility] ([facility]) 2017-12-08 14:43:00 No Route: IV, Drug form: INJ, ONCE, Stop date: 12/08/17 9:43:00 CDT [facility] Sodium Chloride 0.9% IV ([facility]) 500 mL 2017-12-08 14:38:00 N o Route: IV, Total Volume: 500, Start date: 12/08/17 9:38:00 CDT, Stop date: 12/08/17 10:38:00 CDT [facility] phenylephrine ([facility]) 2017-12-08 14:23:00 No Route: IV, Drug form: INJ, ONCE, Stop date: 12/08/17 9:23:00 CDT [facility] ceFAZolin (ANES) 2017-12-08 14:13:00 No Route: IV, Drug form: INJ, ONCE, Stop date: 12/08/17 9:13:00 CDT [facility] potassium chloride (ANES) 40 mEq 2017-12-08 14:11:00 No Route: IV, Drug form: INJ, Start date: 12/08/17 9:11:00 CDT, Stop date: 12/08/17 10:11:00 CDT [facility] Prednisone 2017-12-08 14:00:00 No Notes: Ta ke with food. [facility] Budesonide 2017-12-08 14:00:00 No Notes: (S lynn As: Pulmicort) [facility] Saline Flush 0.9% 2017-12-08 14:00:00 No Notes: (Same as: BD Posiflush) [facility] Isolyte S PH 7.4 (ANES) 1000 mL 2017-12-08 13:31:00 No Route: IV, Total Volume: 1,000, Start date: 12/08/17 8:31:00 CDT, Stop date: 12/08/17 9:31:00 CDT [facility] normal saline 0.9% IV 1,000 mL 2017-12-08 13:22:00 No 1,000 mL, Rate: 100 ml/hr, Infuse over: 10 hr, Route: IV, Dosing Weight 84.5 kg, Total Volume: 1,000, Start date: 12/08/17 8:22:00 CDT, Duration: 30 day, Stop date: 01/07/18 8:21:00 CDT, 2.04, m2 [facility] Sodium Chloride 0.9% IV 1,000 mL + M.V.I .-12 10 mL Daily + folic acid IV 1 mg Daily 2017-12-08 13:21:00 No 1,000 mL, Rate: 100 ml/hr, Infuse over: 10.1 hr, Route: IV, Dosing Weight 84.5 kg, Total Volume: 1,010.2, Start date: 12/08/17 8:21:00 CDT, Stop date: 12/11/17 8:20:00 CDT, 2.04, m2 [facility] Hydrocortisone 2017-12-08 11:32:00 No Notes: (Same as: Isiah) Manda Cristina Benadryl 2017-12-08 11:32:00 No Notes: (Norm e as: Benadryl) Manda Cristina Lasix 2017-12-08 11:17:00 No 20 mg, Route: IVP, Drug form: INJ, ONCE, Dosing Weight 84.5, kg, Priority: NOW, Start date: 12/08/17 6:17:00 CDT, Stop date: 12/08/17 6:17:00 CDT Manda Cristina Tranexamic Acid 2017-12-08 10:41:00 No Notes: (Same As: Cyklokapron) Manda Gongann Diphenhydramine 2017-12-08 07:16:00 No Notes: (Same as: Bensaulryl) Manda Cristina Esomeprazole 20 MG Enteric Coated Capsule [Nexium] 2017-11 07:06:00 Yes 20 mg = 1 cap, PO, Daily, # 30 cap, 0 Re fill(s) Manda Gongann Levofloxacin 2017-12-08 07:00:00 No Notes: Do not give w/antacids, dairy pdt & minerals Take 1 hr before or 2 hr after dairy products Manda [place] Albuterol 0.83 MG/ML Inhalant Solution 2017-12-08 05:14:00 No Notes: SEE RT DOCUMENTATION (Same as: Shavonne) Manda Cristina Dextrose 50% Syringe 2017-12-08 05:14:00 No 25 gm, 50 mL, Route: IVP, Drug Form: INJ, Dosing Weight 84.5, kg, ONCE, Start date: 12/08/17 0:14:00 CDT, Stop date: 12/08/17 0:14:00 CDT [facility] orial Jonnie Insulin regular 2017-12-08 05:14:00 No 60 units) [...] Ondansetron 2017-12-08 03:35:00 No Notes: (Same as: Zofran) MEDICATION WASTE Product Size: 4 mg Product Wasted: ___ mg Manda Cristina Calcium Carbonate 500 MG Chewable Tablet 2017-12-08 03:35:00 No Notes: (Same As: Victor Hugo) Calcium Carbonate 500 mg = 200 mg elemental calcium Dose = mg calcium carbonate ( mg elemental calcium) Manda Gongann potassium phosphate-sodium phosphate 250 mg-280 mg-160 mg oral powder for reconstitution 2017-12-08 03:35:00 No Notes: (Same as: Phos-NaK) Each 1.5 gm pkt has 250mg phosphorous. Mix w/2.5oz water and stir. Manda Cristina Calcium Gluconate 2017-12-08 03:35:00 No Notes: WASTE: F/P - Sink; E - Municipal Trash Bin Manda Cristina Magnesium Oxide 2017-12-08 03:35:00 No Notes: (Same as: Mag-Ox 400) Magnesium oxide [id number] elemental magnesium Dose=____mg magnesium oxide (___mg elemental [...] - Sink; E - Municipal Trash Bin [facility] Saline Flush 0.9% 2017-12-08 03:35:00 No Notes: (Same as: BD Posiflush) Manda Cristina Ipratropium 2017-12-08 03:35:00 No Notes: SEE RT DOCUMENTATION (Same as:Atrovent) Manda Cristina Albuterol 0.83 MG/ML Inhalant Solution 2017-12-08 03:35:00 No Notes: SEE RT DOCUMENTATION (Same as: Proventil) [facility] [place] Vital Signs Vital Name Observation Time Observation Value Comments Source Weight 2020-02-02 13:12:00 190 [lb_av] [facility] BMI (Body Mass Index) 2020-02-02 13:12:00 28.9 kg/m2 [facility] Temperature Oral (F) 2019-06-14 16:50:00 98.4 F [facility] Heart Rate 2019-06-14 16:50:00 [facility] Respitory Rate 2019-06-14 16:50:00 [facility] Systolic (mm Hg) 2019-06-14 16:50:00 Jg rial [place] Diastolic (mm Hg) 2019-06-14 16:50:00 [facility] [place] Temperature Oral (F) 2019-06-14 13:05:00 98.1 F [facility] Heart Rate 2019-06-14 13:05:00 [facility] Respitory Rate 2019-06-14 13:05:00 [facility] [place] Systolic (mm Hg) 2019-06-14 13:05:00 Jg rial [place] Diastolic (mm Hg) 2019-06-14 13:05:00 [facility] [place] Heart Rate 2019-06-14 08:24:00 [facility] [place] Respitory Rate 2019-06-14 08:24:00 [facility] [place] Systolic (mm Hg) 2019-06-14 08:24:00 Jg rial [place] Diastolic (mm Hg) 2019-06-14 08:24:00 [facility] [place] Temperature Oral (F) 2019-06-14 04:25:00 98 F [facility] Height 2019-06-10 09:20:00 175.2 cm [facility] [place] Weight 2019-06-10 09:20:00 [facility] BMI Calculated 2019-06-10 09:20:00 [facility] [place] Height 2019-06-10 06:24:00 175.26 cm [facility] [place] Weight 2019-06-10 06:24:00 [facility] Height 2019-06-10 04:03:00 175.26 cm [facility] [place] BMI Calculated 2019-06-10 04:03:00 [facility] [place] Weight 2019-06-10 04:03:00 [facility] [place] Heart Rate 2017-12-15 17:09:00 [facility] Respitory Rate 2017-12-15 17:09:00 [facility] [place] Systolic (mm Hg) 2017-12-15 17:09:00 Jg rial [place] Diastolic (mm Hg) 2017-12-15 17:09:00 Mem [facility] Temperature Oral (F) 2017-12-15 17:09:00 98.0 F [facility] [place] Systolic (mm Hg) 2017-12-15 12:06:00 Jg rial [place] Diastolic (mm Hg) 2017-12-15 12:06:00 Mem [facility] [place] Respitory Rate 2017-12-15 12:06:00 [facility] [place] Heart Rate 2017-12-15 12:06:00 [facility] Temperature Oral (F) 2017-12-15 12:06:00 98.1 F [facility] [place] Systolic (mm Hg) 2017-12-15 10:48:00 Jg blcok [place] Diastolic (mm Hg) 2017-12-15 10:48:00 Mem [facility] [place] Respitory Rate 2017-12-15 10:48:00 [facility] [place] Heart Rate 2017-12-15 10:48:00 [facility] Temperature Oral (F) 2017-12-15 10:48:00 98.1 F [facility] [place] BMI Calculated 2017-12-08 03:43:00 Michael al [facility] Weight 2017-12-08 03:43:00 [facility] Height 2017-12-08 03:43:00 175[facility] Procedures Procedure Date / Time Performed Performing Clinician [facility] e CT of abdomen and pelvis without contrast 2020-02-02 00:00:00 [facility] Colonoscopy 2007-09-18 00:00:00 [facility] Her goyal Tonsillectomy 1981-09-18 00:00:00 [facility] goyal Splenectomy [facility] Plan of Care Planned Activity Planned Date Details Comments Source Instructions Abdominal Pain - Adult [facility] Encounters Start Date/Time End Date/Time Encounter Type Admission Type Attendi [facility] Facility Care Department Encounter ID Source 2020-02-02 13:03:00 2020-02-02 17:03:00 Departed Emergency Room 1 DARIEN TAPIA [facility] [id number] [facility] 2019-06-09 23:02:00 2019-06-14 16:01:00 Outpatient Gregor Reina [facility] [id number] 2019-06-09 21:48:00 2019-06-09 21:48:00 Inpatient E [facility] [id number] [facility] 2017-12-07 22:28:00 2017-12-15 16:00:00 Outpatient Allan Rinaldi [facility] [id number] Results Test Description Test Time Test Comments Results Result Comments Source CT ABDOMEN/PELVIS W 2020-02-24 04:52:00 [place] [address] Patient Name: MINE ROUSE MR #: [id number] : 1975 Age/Sex: 44/M Req #: [id number] [facility] Physician: Ordered by: SHUKRI JENKINS DO Report #: [id number] Location: ER Room/Bed: Procedure: CT/CT ABDOMEN/PELVIS W Exam Date: Exam Time: REPORT STATUS: Signed CT Abdomen And Pelvis with Intravenous Contrast INDICATION: Diarrhea LLQ pain TECHNIQUE: Thin collimation axial images obtained from the diaphragm to the level of the pubic symphysis following the uneventful administration of 100 cc of low osmolar, nonionic in travenous contrast. Oral contrast was also administered. Dose reduction techniques used: Automated exposure control, adjustment of the mAs and/or kVp according to patient size, standardized low-dose protocol, and/or iterative reconstruction technique. RADIATION DOSE: Total DLP: 469.15 mGy*cm Estimated effective dose: (DLP x 0.015 x size factor) mSv CTDIvol has been reviewed. It is below the limits set by the Radiation Protocol Committee (RPC). COMPARISON: CT abdomen/pelvis 02/02/2020. ABDOMEN FINDINGS: Lung Bases: Bibasilar groundglass airspace opacities have increased in the interim. The heart is normal in size. Small amount of enteric contrast in the distal esophagus. Liver: Normal attenuation. No evidence for mass. Gallbladder: Present and contracted. No biliary ductal dilatation. Pancreas: Normal attenuation without mass or ductal dilatation. Spleen: Absent. Stable appearing splenule in the left upper quadrant. Adrenal Glands: No evidence for mass. Kidneys: Right: Normal enhancement. No soft tissue mass. No hydronephrosis. Left: Normal enhancement. No soft tissue mass. No hydronephrosis. Lymph Nodes: No lymphadenopathy. Aorta: Normal in diameter PELVIS FINDINGS: Bowel: Stomach: Normal. Small Bowel: Enteric contrast present throughout. No mural thickening or dilatation. Large Bowel: Enteric contrast present. No mural thickening or dilatation. Appendix: Normal. Bladder: Normal. Peritoneum/retroperitoneum: No free fluid or fluid collection.. Bones: Minimal degenerative changes of the spine. No focal osseous lesions. IMPRESSION: 1. Increasing pulmonary groundglass airspace opacities. This may be due to atypical pneumonia or reactive airways disease. 2. No evidence for bowel obstruction or inflammation. Normal appendix. Small amount of enteric contrast in the distal esophagus may be secondary to reflux. Signed by: Dr. Aneta Wilson MD on 02/24/2020 4:57 AM Dictated By: ANETA WILSON MD 6 Transcribed By: ABIDA on 02/24/20456 COPY TO: SHUKRI JENKINS DO CT ABDOMEN/PELVIS WO 2020-02-02 16:06:00 [place] [address] Patient Name: MINE ROUSE MR #: [id number] : 1975 Age/Sex: 44/M Req #: [id number] [facility] Physician: Ordered by: SHUKRI CACERES CAN SLIDER Report #: [id number] Location: ER Room/Bed: Procedure: [id number] CT/CT ABDOMEN/PELVIS WO Exam Date: 02/02/20 Exam [...] 4:13 PM Dictated By: CHAVO CAN MD 161 Transcr ibed By: ABIDA on 02/02/20 1613 COPY TO: SHUKRI CACERES NP Blood leukocytes automated count (number/volume) 2020-02-02 13:38:00 Test Item White Blood Count (test code = 6690-2) 11.35 4.8-10.8 [facility] count (number/volume)2020-02-02 13:38:00* Test Item Value Reference Range Interpretation Comments Red Blood Count (test code = 789-8) 6.36 4.3-5.7 [facility] hemoglobin measurement (moles/volume)2020-02-02 13:38:00* Test Item Value Reference Range Interpretation Comments Hemoglobin (test code = 59217-4) 17.1 14.0-18.0 [facility] Dallas[facility] blood hematocrit (volume fraction)2020-02-02 13:38:00* Test Item Value Reference Range Interpretation Comments Hematocrit (test code = 4544-3) 50.0 38.2-49.6 [facility] Dallas[facility] erythrocyte mean corpuscular qnlolm6349-80-07 13:38:00* Test Item Value Reference Range Interpretation Comments Mean Corpuscular Volume (test code = 787-2) 78.6 81-99 [facility] DallasAutom[facility] erythrocyte mean corpuscular hemoglobin (mass per erythrocyte)2020-02-02 13:38:00* Test Item Value Reference Range Interpretation Comments Mean Corpuscular Hemoglobin (test code = 785-6) 26.9 28-32 [facility] mean corpuscular hemoglobin concentration measurement (mass/volume)2020-02-02 13:38:00* Test Item Value Reference Range Interpretation Comments Mean Corpuscular Hemoglobin Concent (test code = 786-4) 34.2 31-35 [facility] DallasRDW DouYn-Thv0347-08-17 13:38:00* Test Item Value Reference Range Interpretation Comments Red Cell Distribution Width (test code = 49097-6) 22.7 11.7 -14.4 [facility] blood platelet count (count/volume)2020-02-02 13:38:00* Test Item Value Reference Range Interpretation Comments Platelet Count (test code = 777-3) 573 140-360 [facility] blood segmented neutrophil count as percentage of total kcvobnkbou8163-47-87 13:38:00* Test Item Value Reference Range Interpretation Comments Neutrophils (%) (Auto) (test code = 98214-5) 44.8 38.7-80.0 [facility] blood lymphocyte count as percentage ot total fekdwsgqxs5585-59-80 13:38:00* Test Item Value Reference Range Interpretation Comments Lymphocytes (%) (Auto) (test code = 736-9) 38.6 18.0-39.1 [facility]Aut[facility] blood monocyte count as percentage of total vyyemuudsd8763-01-45 13:38:00* Test Item Value Reference Range Interpretation Comments Monocytes (%) (Auto) (test code = 5905-5) 13.3 4.4-11.3 [facility] Dallas[facility] blood eosinophil count as percentage of total vyenrtafpn6660-64-43 13:38:00* Test Item Value Reference Range Interpretation Comments Eosinophils (%) (Auto) (test code = 713-8) 2.0 0.0-6.0 [facility] blood basophil count as percentage of total kubthatibs9830-51-17 13:38:00* Test Item Value Reference Range Interpretation Comments Basophils (%) (Auto) (test code = 706-2) 0.9 0.0-1.0 [facility] DallasFluoroscopic procedure less than one hour yppvgkrg2077-51-91 13:38:00* Test Item Value Reference Range Interpretation Comments IM GRANULOCYTES % (test code = IM GRANULOCYTES %) 0.4 0.0- 1.0 [facility] blood neutrophil count 2020-02-02 13:38:00* Test Item Value Reference Range Interpretation Comments Neutrophils # (Auto) (test code = 751-8) 5.1 2.1-6.9 [facility] DallasBlood lymphocytes count (number/volume) 2020-02-02 13:38:00* Test Item Value Reference Range Interpretation Comments Lymphocytes # (Auto) (test code = 66733-7) 4.4 1.0-3.2 [facility] DallasBlood monocytes automated count (number/volume)2020-02-02 13:38:00* Test Item Value Reference Range Interpretation Comments Monocytes # (Auto) (test code = 742-7) 1.5 0.2-0.8 [facility] Dallas[facility] blood eosinophil count 2020-02-02 13:38:00* Test Item Value Reference Range Interpretation Comments Eosinophils # (Auto) (test code = 711-2) 0.2 0.0-0.4 [facility] Dallas[facility] blood basophil count (count/volume)2020-02-02 13:38:00* Test Item Value Reference Range Interpretation Comments Basophils # (Auto) (test code = 704-7) 0.1 0.0-0.1 [facility] DallasFluoroscopic procedure less than one hour risyvhsj0376-78-12 13:38:00* Test Item Value Reference Range Interpretation Comments Absolute Immature Granulocyte (auto (braden t code = Absolute Immature Granulocyte (auto) 0.05 0-0.1 [facility] DallasUrine color qmrpckapdvfkv1939-83-13 13:38:00* Test Item Value Reference Range Interpretation Comments Urine Color (test code = 5778-6) YELLOW YELLOW [facility] DallasUrine ujfdzhy3177-84-36 13:38:00* Test Item Value Reference Range Interpretation Comments Urine Clarity (test code = 84346-9) CLEAR CLEAR [facility] gravity of Urine by Test strip 2020-02-02 13:38:00* Test Item Value Reference Range Interpretation Comments Urine Specific [place] (test code = 5811-5) 1.020 1.010-1.02 5 [facility] pH measurement by automated test ctcjw2531-98-49 13:38:00* Test Item Value Reference Range Interpretation Comments Urine pH (test code = 93257-8) 8.5 5-7 [facility] Dallas[facility] leukocyte esterase detection by xtwdddne6171-93-19 13:38:00* Test Item Value Reference Range Interpretation Comments Urine Leukocyte Esterase (test code = 5799-2) NEGATIVE NEGATIVE [facility] Dallas[facility] nitrite rbcvaczwn5729-07-47 13:38:00* Test Item Value Reference Range Interpretation Comments Urine Nitrite (test code = 23031-7) NEGATIVE NEGATIVE [facility] DallasU[facility] protein measurement by test strip (mass/volume)2020-02-02 13:38:00* Test Item Value Reference Range Interpretation Comments Urine Protein (test code = 5804-0) NEGATIVE NEGATIVE [facility] DallasU[facility] glucose mdeqqajmd6448-78-15 13:38:00* Test Item Value Reference Range Interpretation Comments Urine Glucose (UA) (test code = 2349-9) NEGATIVE NEGATIVE [facility] DallasUrine ketones detection by automated test blker0664-36-49 13:38:00* Test Item Value Reference Range Interpretation Comments Urine Ketones (test code = 26566-3) NEGATIVE NEGATIVE [facility] DallasUrine urobilinogen measurement by test strip (mass/volume)2020-02-02 13:38:00* Test Item Value Reference Range Interpretation Comments Urine Urobilinogen (test code = 69535-8) 0.2 0.2-1 [facility] Dallas[facility] total bilirubin measurement (mass/volume)2020-02-02 13:38:00* Test Item Value Reference Range Interpretation Comments Urine Bilirubin (test code = 1978-6) NEGATIVE NEGATIVE [facility] DallasUrine erythrocytes wpwizngnc8631-74-83 13:38:00* Test Item Value Reference Range Interpretation Comments Urine Blood (test code = 05730-1) TRACE NEGATIVE [facility] DallasAutomated urine sediment leukocyte count by microscopy (number/high power field)2020-02-02 13:38:00* Test Item Value Reference Range Interpretation Comments Urine WBC (test code = 5821-4) 6-10 0-5 [facility] DallasErythrocytes detection in urine sediment by light vzhlpfvegk0262-38-34 13:38:00* Test Item Value Reference Range Interpretation Comments Urine RBC (test code = 56712-5) 6-10 0-5 [facility] DallasBacteria detection in urine sediment by light xxbkpfrbzh2022-67-82 13:38:00* Test Item Value Reference Range Interpretation Comments Urine Bacteria (test code = 37595-8) FEW NONE [facility] DallasEpithelial cells detection in urine sediment by light dzoofynlid2415-26-92 13:38:00* Test Item Value Reference Range Interpretation Comments Urine Epithelial Cells (test code = 14614-2) FEW NONE [facility]iscoerum or plasma sodium measurement (moles/volume)2020-02-02 13:38:00* Test Item Value Reference Range Interpretation Comments Sodium Level (test code = 2951-2) 136 136-145 [facility] Friscoerum or plasma potassium measurement (moles/volume)2020-02-02 13:38:00* Test Item Value Reference Range Interpretation Comments Potassium Level (test code = 2823-3) 4.4 3.5-5.1 [facility]iscoerum or plasma chloride measurement (moles/volume)2020-02-02 13:38:00* Test Item Value Reference Range Interpretation Comments Chloride Level (test code = 2075-0) 104 98-107 [facility]iscoerum or plasma carbon dioxide, total measurement (moles/volume)2020-02-02 13:38:00* Test Item Value Reference Range Interpretation Comments Carbon Dioxide Level (test code = 2028-9) 23 22-29 [facility]iscoerum or plasma anion zpr7806-24-98 13:38:00* Test Item Value Reference Range Interpretation Comments Anion Gap (test code = 12939-3) 13.4 8-16 [facility]iscoerum or plasma urea nitrogen measurement (mass/volume)2020-02-02 13:38:00* Test Item Value Reference Range Interpretation Comments Blood Urea Nitrogen (test code = 3094-0) 7 7-26 [facility]iscoerum or plasma creatinine measurement (mass/volume)2020-02-02 13:38:00* Test Item Value Reference Range Interpretation Comments Creatinine (test code = 2160-0) 1.31 0.72-1.25 [facility]iscoerum or plasma urea nitrogen/creatinine mass uhzgt1220-18-70 13:38:00* Test Item Value Reference Range Interpretation Comments BUN/Creatinine Ratio (test code = 3097-3) 5 6-25 [facility] DallasEstimated glomerular filtration rate (GFR) wivmplfkgekxj2521-42-74 13:38:00* Test Item Value Reference Range Interpretation Comments Estimat Glomerular Filtration Rate (test code = 063108026) 60 >60 Ranges were taken from the National Kidney Disease Education Program and the [facility] Kid[facility] Foundation literature.Reference ranges:60 or greater: Hwvxuz59-60 ( for 3 consecutive months): Chronic kidney disease 15 or less: Kidney failureChildren's Medical Center DallasGlucose ntaewkisebh3358-43-15 13:38:00* Test Item Value Reference Range Interpretation Comments Glucose Level (test code = JQR7905) 108 74-118 [facility]iscoerum or plasma calcium measurement (mass/volume)2020-02-02 13:38:00* Test Item Value Reference Range Interpretation Comments Calcium Level (test code = 22293-3) 10.0 8.4-10.2 [facility] DallasFluoroscopic procedure less than one hour raixdhzt5519-64-98 13:38:00* Test Item Value Reference Range Interpretation Comments Lactic Acid Level (test code = Lactic Acid Level) 1.5 0.5- 2.0 [facility]iscoerum or plasma total bilirubin measurement (mass/volume)2020-02-02 13:38:00* Test Item Value Reference Range Interpretation Comments Total Bilirubin (test code = 1975-2) 0.9 0.2-1.2 [facility] DallasFluoroscopic procedure less than one hour fsebgtve6183-04-09 13:38:00* Test Item Value Reference Range Interpretation Comments Aspartate Amino Transf (AST/SGOT) (test code = Aspartate Amino Transf (AST/SGOT)) 40 5-34 [facility]iscoerum or plasma alanine aminotransferase measurement (enzymatic activity/volume)2020-02-02 13:38:00* Test Item Value Reference Range Interpretation Comments Alanine Aminotransferase (ALT/SGPT) (test code = 1742-6) 57 0-55 [facility]iscoerum or plasma protein measurement (mass/volume)2020-02-02 13:38:00* Test Item Value Reference Range Interpretation Comments Total Protein (test code = 2885-2) 7.0 6.5-8.1 [facility]iscoerum or plasma albumin measurement (mass/volume)2020-02-02 13:38:00* Test Item Value Reference Range Interpretation Comments Albumin (test code = 1751-7) 3.6 3.5-5.0 [facility] DallasPlasma globulin measurement (mass/volume) 2020-02-02 13:38:00* Test Item Value Reference Range Interpretation Comments Globulin (test code = 61480-2) 3.4 2.3-3.5 [facility]iscoerum or plasma albumin/globulin mass zcyzq9461-41-66 13:38:00* Test Item Value Reference Range Interpretation Comments Albumin/Globulin Ratio (test code = 1759-0) 1.1 0.8-2.0 [facility]isco[facility]um or plasma alkaline phosphatase measurement (enzymatic activity/volume)2020-02-02 13:38:00* Test Item Value Reference Range Interpretation Comments Alkaline Phosphatase (test code = 6768-6) 53 40-150 [facility] DallasTroponin I measurement by highly sensitive enzyme fenfslkkicc3217-81-14 13:38:00* Test Item Value Reference Range Interpretation Comments Troponin I (test code = 87194-3) < 0.001 0-0.300 [facility]iscoerum or plasma amylase measurement (enzymatic activity/volume)2020-02-02 13:38:00* Test Item Value Reference Range Interpretation Comments Amylase Level (test code = 1798-8) 75 25-125 [facility]iscoerum or plasma lipase measurement (enzymatic activity/volume)2020-02-02 13:38:00* Test Item Value Reference Range Interpretation Comments Lipase (test code = 3040-3) 63 8-78 [facility] CT ABD PELVIS W/O [id number] 16:37:00 Name: MINE ROUSE [facility] : 1975 Age/S: 44 / M [address] [facility] Unit #: [id number] Loc: [place] [address] Phys: Henrry Khanna DO Acct: [id number] Dis Date: Status: REG ER PHONE #: [phone] Exam Date: 01/30/2020 1630 FAX #: [phone] Reason: abd pain/rectal bleeding/recent ileus EXAMS: CPT CODE: [id number] CT ABD PELVIS W/O CONT 61446 REASON FOR EXAM: abd pain/rectal bleeding/recent ileus EXAM ORDER DATE: 01/30/2020 2:17 PM Ordering: Henrry Khanna DO Attending:Henrry Khanna DO Location[facility] PROCEDURE: - CT ABD PELVIS W/O CONT [...] RT(R) CTDI: DLP: Trnscb Date/Time: 01/30/2020 (163) HernanL Orig Print D/T: S: 01/30/2020 (1406) PAGE 1 Signed Report BASIC METABOLIC [id number] 16:17:00* Test Item Value Reference Range Interpretation [...] CA) 8.9 mg/dL 8.5-10.1 N HEPATIC FUNCTION [id number] 16:17:00* Test Item Value Reference Range Interpretation [...] reference range due to change in reagent. [id number] 16:17:00* Test Item Value Reference Range Interpretation Comments LIPASE (test code = LIP) 227 U/L 73.0-393.0 N BASIC METABOLIC [id number] 16:10:00* Test Item Value Reference Range Interpretation [...] code = CA) mg/dL 8.5-10.1 HEPATIC FUNCTION [id number] 16:10:00* Test Item Value Reference Range Interpretation [...] TOTAL (test code = ALKP) IUnit/L 45-117 [id number] 16:10:00* Test Item Value Reference Range Interpretation Comments LIPASE (test code = LIP) U/L 73.0-393.0 CBC W/O [id number] 16:03:00* Test Item Value Reference Range Interpretation [...] MPV) 10.4 fL 6.7-11.0 N CBC W/O [id number] 16:01:00* Test Item Value Reference Range Interpretation [...] code = MPV) fL 6.7-11.0 BASIC METABOLIC [id number] 04:52:00* Test Item Value Reference Range Interpretation [...] CA) 8.0 mg/dL 8.5-10.1 L BASIC METABOLIC [id number] 04:52:00* Test Item Value Reference Range Interpretation [...] CA) 8.0 mg/dL 8.5-10.1 L CBC W/AUTO [id number] 04:50:00* Test Item Value Reference Range Interpretation [...] = MDIFF) NO, ONLY SCAN NEEDED DIFFERENTIAL [id number] 04:50:00* Test Item Value Reference Range Interpretation [...] MORPHOLOGY (test code = PLTMORPH) NORMAL LACTIC [id number] 04:39:00* Test Item Value Reference Range Interpretation Comments LACTIC ACID (test code = LACT) 0.7 mmol/L 0.4-1.9 N CBC W/AUTO [id number] 04:26:00* Test Item Value Reference Range Interpretation [...] = MDIFF) NO, ONLY SCAN NEEDED DIFFERENTIAL [id number] 04:26:00* Test Item Value Reference Range Interpretation Comments STAIN ACCEPTABILITY (test code = STN ACCEPTABLE) CABOT RINGS (test code = CAB) MORPHOLOGY COMMENT (test code = MOC) PLATELET ESTIMATE (test code = PLTEST) PLATELET MORPHOLOGY (test code = PLTMORPH) CBC W/AUTO CYCE7235-16-81 04:26:00* Test Item Value Reference Range Interpretation [...] = MDIFF) NO, ONLY SCAN NEEDED DIFFERENTIAL MEBS3037-38-76 04:26:00* Test Item Value Reference Range Interpretation Comments STAIN ACCEPTABILITY (test code = STN ACCEPTABLE) CABOT RINGS (test code = CAB) MORPHOLOGY COMMENT (test code = MOC) PLATELET ESTIMATE (test code = PLTEST) PLATELET MORPHOLOGY (test code = PLTMORPH) CBC W/AUTO JJCH6380-97-74 04:26:00* Test Item Value Reference Range Interpretation [...] = MDIFF) NO, ONLY SCAN NEEDED DIFFERENTIAL VMVP0948-85-06 04:26:00* Test Item Value Reference Range Interpretation Comments STAIN ACCEPTABILITY (test code = STN ACCEPTABLE) MORPHOLOGY COMMENT (test code = MOC) PLATELET ESTIMATE (test code = PLTEST) PLATELET MORPHOLOGY (test code = PLTMORPH) CBC W/AUTO KUJU3919-69-33 04:26:00* Test Item Value Reference Range Interpretation [...] = MDIFF) NO, ONLY SCAN NEEDED DIFFERENTIAL KSJF3048-99-58 04:26:00* Test Item Value Reference Range Interpretation Comments STAIN ACCEPTABILITY (test code = STN ACCEPTABLE) CABOT RINGS (test code = CAB) MORPHOLOGY COMMENT (test code = MOC) PLATELET ESTIMATE (test code = PLTEST) PLATELET MORPHOLOGY (test code = PLTMORPH) CBC W/AUTO [id number] 04:20:00* Test Item Value Reference Range Interpretation [...] patients history. - CT ABD PELVIS W/O NIWJ4756-71-71 21:19:00 Name: MINE ROUSE [facility] : 1975 Age/S: 44 / M [address] [facility] Unit #: [id number] [place]: [place] [address] Phys: Raquel De La Rosa CAN SLIDER Acct: [id number] Dis Date: Status: REG ER PHONE #: [phone] Exam Date: 01/25/20202107 FAX #: [phone] Reason: abd pain EXAMS: CPT CODE: [id number] CT ABD PELVIS W/O CONT 14509 HISTORY: Abdominal pain TECHNIQUE: 5 mm axial [...] Signed Report (CONTINUED) Name: MINE ROUSE [facility] : 1975 Age/S: 44 / M [address] [facility] Unit #: [id number] Loc: [place] [address] Phys: Raquel De La Rosa NP Acct: [id number] Dis Date: Status: REG ER PHONE #: [phone] Exam Date: 01/25/20202107 FAX #: [phone] Reason: abd pain EXAMS: CPT CODE: [id number] CT ABD PELVIS W/O CONT 90593 < Continued> LOCATION: LP at 2118 Reported and signed by: Melania Ordonez D.O. CC: Wily Marquez MD; Raquel De aL Rosa NP Technologist:Shaan Kumar, RT(R)(CT) CTDI: DLP: Trnscb Date/Time: 01/25/2020 (2118) [email or web address] Orig Print D/T: S: 01/25/2020 (2121) PAGE 2 Signed Report BASIC METABOLIC [id number] 20:53:00* Test Item Value Reference Range Interpretation [...] CA) 8.7 mg/dL 8.5-10.1 N HEPATIC FUNCTION ONRIC9599-10-18 20:53:00* Test Item Value Reference Range Interpretation [...] code = CK) 743 IUnit/L 26-208 H YBZGRZ9038-82-83 20:53:00* Test Item Value Reference Range Interpretation Comments LIPASE (test code = LIP) 159 U/L 73.0-393.0 N METRFRZL-A1834-07-09 20:53:00* Test Item Value Reference Range Interpretation Comments TROPONIN-I (test code = TROPI) <0.015 ng/mL 0-0.045 N BASIC METABOLIC [id number] 20:27:00* Test Item Value Reference Range Interpretation [...] code = CA) mg/dL 8.5-10.1 HEPATIC FUNCTION YVOVB0811-01-43 20:27:00* Test Item Value Reference Range Interpretation [...] (CK) (test code = CK) IUnit/L 26-208 KBDZVB9308-53-49 20:27:00* Test Item Value Reference Range Interpretation Comments LIPASE (test code = LIP) U/L 73.0-393.0 EZXYHRHP-M3192-97-09 20:27:00* Test Item Value Reference Range Interpretation Comments TROPONIN-I (test code = TROPI) ng/mL 0-0.045 CBC W/O HXSB3854-09-98 20:25:00* Test Item Value Reference Range Interpretation [...] MPV) 9.3 fL 6.7-11.0 N CBC W/O CQNR8513-11-29 20:16:00* Test Item Value Reference Range Interpretation [...] (test code = MPV) fL 6.7-11.0 URINALYSIS ECZINYNV4400-70-58 19:26:00* Test Item Value Reference Range Interpretation [...] NEGATIVE UA PH DIPSTICK (test code = UCCA) 6.5 5.0-8.0 UA PROTEIN DIPSTICK (test code [...] MUCU) FEW #/LPF FEW Urine Source? Clean NwaooQPBBANAOCEWX3108-90-58 07:11:0012.6[facility] BDNYDHJTLYSK0649-33-93 07:11:21018Pbukhdvl HnopoosEEKRGEUTSACE2182-42-01 07:11:0011[facility] MkphbqkUAUAPBSRQHVB1333-31-33 07:11:001.31[facility] YCKNKWSZFKND9970-06-52 07:11:41869Saashrjy CffwmqtOUMIRTJGERFS3321-64-11 07:11:004.6[facility] UsfwnwwWBWYDBNXFNFO9810-57-61 07:11:83832Potiidab Jonnie UEHGUYYNENZX9707-00-43 07:11:0023[facility] KlryusfYFVQVNHGZBZK4387-51-35 07:11:00 8.9[facility] QfwcuubLTZDZHNYFJKF5420-05-71 07:11:0067[facility]annHEMATOLOGY 2019-06-14 07:11:0016.9[facility] AyflzgxXNLWNLYHAJ0094-84-81 07:11:005.38[facility] EgimvwvRTZVLCUFYR3336-64-94 07:11:0014.2[facility] CciuratRMXSFZVRAB6159-42-49 07:11:0043.7[facility] WhqszgxUQZCERRJEP0706-90-22 07:11:0081.3[facility] SEFZYNSXIN6674-58-96 07:11:00* Test Item Value Reference Range Interpretation Comments MCH (test code = MCH) 26.4 pg 27.0-31.0 [facility] ZvjcnzmYWQGTMVKYY1058-76-31 07:11:0032.5[facility]annHEMATOLOGY 2019-06-14 07:11:0017.1[facility] RoftyzjDAFKYACLHJ3687-77-39 07:11:91602Fcdsrpdh ZdbvppgXLXVMVKBJF0883-99-04 07:11:008.0[facility] VequwlgXGDQAQDHXU6497-43-44 07:11:0056.0[facility] AfxvkoeXZVHNSRZLO8812-49-42 07:11:0030.0[facility] WQISTZKIZF2011-89-73 07:11:009.3[facility] WncqxnbSDGEUAEBTU6694-82-49 07:11:003.9 [facility] ChbfhiuZWVHKNBTLE9697-82-45 07:11:000.8[facility]annHEMATOLOGY 2019-06-14 07:11:009.4[facility] MugbeohKTXKMMUXSZ9714-86-12 07:11:005.0[facility] FdxoovnCXVYPEFXFO1041-31-84 07:11:001.6[facility] TbyyazxPULQBAUDHI9794-33-26 07:11:000.7[facility] YcaedhmNHVPYWPYGP6797-08-63 07:11:000.1[facility] HermannCHEM LYCAR2205-85-56 05:15:09359Yusmouzt HermannCHEM EVCWP5966-97-00 05:15:009 [facility]annCHE[facility] ETUXD4352-56-47 05:15:001.18[facility]annCHEM PANEL 2019-06-13 05:15:72996Ojxajidw HermannCHEM JMKVG2298-85-29 05:15:004.3[facility]annCHEM OPWEV0278-26-75 05:15:36463Ssaccxcw HermannCHEM NQFTF1059-06-66 05:15:0024[facility]annCHEM LLRIR3901-20-61 05:15:008.8[facility]annCHEM VYBNM1966-10-96 05:15:0011.3[facility]annCHEM QLINZ5363-64-93 05:15:0076 [facility]annCHE[facility] MFIDD7280-25-06 05:15:74454Vcppldys HermannCHEM PANEL 2019-06-13 05:15:009[facility]annCHEM PFZYM7048-71-03 05:15:001.18[facility]annCHEM VCFRI2530-84-54 05:15:26595Dmjtnivt HermannCHEM KRLFH1683-37-32 05:15:004.3[facility]annCHEM QWGJP9893-18-61 05:15:73461Ddzlnbvi HermannCHEM EOJUL5996-30-86 05:15:0024[facility]annCHEM QXKSW3776-75-85 05:15:008.8 [facility]annCHE[facility] LMJKR5702-50-28 05:15:006.3[facility]annCHEM PANEL 2019-06-13 05:15:002.6[facility]annCHEM UYQIW3862-46-00 05:15:0056[facility]annCHE[facility] FPKLG8471-91-32 05:15:0033[facility]annCHEM BFLZL8525-86-52 05:15:0057[facility]annCHEM UWVUY3767-80-76 05:15:000.2[facility]annCHEM ZJVSW9158-92-83 05:15:0011.3[facility]annCHEM YRLEQ5089-43-04 05:15:00* Test Item Value Reference Range Interpretation Comments B/C Ratio (test code = B/C Ratio) 8 1 6-25 [facility]annCHE[facility] EKMGD2594-41-84 05:15:003.7[facility] HermannCHEM PANEL 2019-06-13 05:15:00* Test Item Value Reference Range Interpretation Comments A/G Ratio (test code = A/G Ratio) 0.7 1 0.7-1.6 [facility]annCHEM WAOFI0244-86-45 05:15:0076[facility]annHEMATOLOGY 2019-06-13 05:15:0018.8[facility] PmcsrwsGAMUPRRJBM4046-62-60 05:15:004.85[facility] LokdygjYYRELSABPR6326-40-78 05:15:0013.1[facility] OcafbqdLUKIIEFCIT8975-44-19 05:15:0039.2[facility] SfqlzbjWYXFJSVTGM0527-77-41 05:15:0080.8[facility] KULNEGMYUN3516-16-98 05:15:00* Test Item Value Reference Range Interpretation Comments MCH (test code = MCH) 26.9 pg 27.0-31.0 [facility] CacbttzQDITCDOZWS5396-80-47 05:15:0033.3[facility] HermannHEMATOLOGY 2019-06-13 05:15:0016.7[facility] VowqqhiZYRQYTJOQI7253-53-85 05:15:50164Obdfeklu JdhfkegILPOHFPQYA1160-34-52 05:15:007.5[facility] QauhpquICLVNKRAQF8209-25-33 20:50:007.4[facility] EgbhtloSJMRVRAYIB6270-65-43 20:50:00* Test Item Value Reference Range Interpretation Comments [facility] Thornton [facility] 1500 1 [facility] YkpvdkgKJYJUSAQVS6105-36-72 19:20:000.9[facility] HermannTOXICOLOGY 2019-06-11 19:20:00* Test Item Value Reference Range Interpretation Comments Brenda Thornton TND (test [facility] 1330 1 [facility] EmysjhzRRERZEKKSQ1223-03-21 09:44:0022.5[facility] HermannHEMATOLOGY 2019-06-11 09:44:004.92[facility] CmqfjkzMQVNANIZBS8321-73-76 09:44:0013.0[facility] NrgqwerYDDYKNRZRV6277-23-20 09:44:0040.2[facility] FzgbtpzZCELRVTJHJ4833-91-07 09:44:0081.5[facility] DifrscrJFQQIXLLBB5338-46-70 09:44:00* Test Item Value Reference Range Interpretation Comments MCH (test code = MCH) 26.4 pg 27.0-31.0 [facility] DhllyaxSLKWZPKUKV0874-09-33 09:44:0032.4[facility] HermannHEMATOLOGY 2019-06-11 09:44:0016.7[facility] AouexneNWWIOJSESN3007-16-25 09:44:49942Tohjmhyp JbnlwpnKOLLCWZEAI6639-06-39 09:44:008.1[facility] CtscpbsAMHMBXEOLW7824-18-25 09:44:00Negative *NA*(06/11/19 4:44 AM)[facility] DjpcsfpSGKGZJTTMB2749-64-94 09:44:00Negative *NA*(06/11/19 4:44 AM)[facility] NipshtpBZWFDEECSL3903-58-73 09:44:00Negative *NA*(06/11/19 4:44 AM)[facility] PnlmguhDXTNOUHCYA1748-58-58 09:44:00Negative *NA*(06/11/19 4:44 AM)[facility] HygfpmaMNAPJXVHAN6789-57-03 09:44:00Negative *NA*(06/11/19 4:44 AM)[facility]annDR[facility] EEQYZO0182-17-67 08:00:00Negative *NA*(06/11/19 3:00 AM)[facility] QPCWCV1441-69-95 08:00:00Negative *NA*(06/11/19 3:00 AM)[facility] OGGAHB1300-96-11 08:00:00Positive *ABN*(06/11/19 3:00 AM)[facility] AARBQW8088-39-34 08:00:00Negative *NA*(06/11/19 3:00 AM)[facility] STELOX6784-67-81 08:00:00Negative *NA*(06/11/19 3:00 AM)[facility] PLFGTL8252-25-76 08:00:00Positive *ABN*(06/11/19 3:00 AM)[facility] DXAQFG4012-56-78 08:00:00Negative *NA*(06/11/19 3:00 AM)[facility] FDZUBA7245-01-21 08:00:00See Note (06/11/19 3:00 AM)[facility]ann[facility] LBNFXP6449-10-76 08:00:00 Negative *NA*(06/11/19 3:00 AM)[facility] TCHBFU6273-66-27 08:00:00 Negative *NA*(06/11/19 3:00 AM)[facility] PENICILLIN:SUSC:PT:ISOLATE:ORDQN:VTL7428-22-81 22:50:00Staphylococcus aureus [facility]annCHEM IHAHU1139-38-05 09:57:001.8[facility] HermannCHEM PANEL 2019-06-10 09:57:001.9[facility] HermannCHEM BUYNM9562-45-76 04:38:000.9[facility] CleadivWDUWPLLRPI9700-12-39 04:38:00Normal (06/09/19 11:38 PM)[facility] DKJUOVGZUC8383-76-24 04:38:00Normal (06/09/19 11:38 PM)[facility]annHEMATOLOGY 2019-06-10 04:38:0075.6[facility] ZiobzbyNXPXVLUNPG3625-55-49 04:38:0013.6[facility] GujtzbrQOTTJYBMFF5235-98-15 04:38:009.1[facility] MiynqdnZYOIRFJMSB1128-45-19 04:38:001.4[facility] WqqxpzzNPHZAQMIPA3761-26-16 04:38:000.3[facility] PAUIYHPZPV3929-83-41 04:38:0018.7[facility] BgwttsaRGEOBQYBRP0783-93-12 04:38:00 3.4[facility] ExcpftoCRXLCCZOPR8171-25-31 04:38:002.2[facility] HermannHEMATOLOGY 2019-06-10 04:38:000.3[facility] WoxfmweNAWLTORTXN6070-80-03 04:38:000.1[facility] HermannBLOOD BANK TOOFWOU0697-03-31 04:35:00Negative (06/09/19 11:35 PM)[facility]- CT ABD PELVIS W/O LIXS2034-69-51 01:31:00 Name: MINE ROUSE JOHN [facility] : 1975 Age/S: 43 / M [address] [facility] Unit #: [id number] [place]: [place] [address] Phys: Raquel De La Rosa CAN SLIDER Acct: [id number] Dis Date: Status: REG ER PHONE #: [phone] Exam Date: 05/24/2019110 FAX #: [phone] Reason: ABD PAIN EXAMS: CPT CODE: [id number] CT ABD PELVIS W/O CONT 67726 AFTER HOURS SERVICE ON: 05/24/2019 1:30 AM [...] Signed Report (CONTINUED) Name: MINE ROUSE [facility] : 1975 Age/S: 43 / M [address] [facility] Unit #: [id number] Loc: [place] [address] Phys: Raquel De La Rosa NP ct: [id number] Dis Date: Status: REG ER PHONE #: [phone] Exam Date: 05/24/2019 011 FAX #: [phone] Reason: ABD PAIN EXAMS: CPT CODE: [id number] ABD PELVIS W/O CONT 72281 <Continued > at 0131 Reported and signed by: Alanna Sprague M.D. CC: Raquel De La Rosa NP; Fatuma Nash MD Technologist:ANJALI WILSON CTDI: DLP: Trnscb Date/Time: 05/24/2019 (013) [email or web address] Orig Print D/T: S: 05/24/2019 (0138) PAGE 2 Signed Report CBC W/O DEJE7951-14-47 01:09:00* Test Item Value Reference Range Interpretation [...] MPV) 9.5 fL 6.7-11.0 N CBC W/O QCVY3967-33-38 01:08:00* Test Item Value Reference Range Interpretation [...] (test code = MPV) fL 6.7-11.0 URINALYSIS AQQEVDCS4059-56-28 01:00:00* Test Item Value Reference Range Interpretation [...] AMORU) FEW #/LPF Urine Source? Clean CatchURINALYSIS MRVMXKJV2853-90-29 00:51:00* Test Item Value Reference Range Interpretation [...] HPF NONE Urine Source? Clean CatchBASIC METABOLIC FQOSM0884-02-30 00:47:00* Test Item Value Reference Range Interpretation [...] CA) 9.1 mg/dL 8.5-10.1 N HEPATIC FUNCTION DHQSJ4502-15-08 00:47:00* Test Item Value Reference Range Interpretation [...] reference range due to change in reagent. BNVKLI0986-38-61 00:47:00* Test Item Value Reference Range Interpretation Comments LIPASE (test code = LIP) 193 U/L 73.0-393.0 N GUEVODWL-U4923-43-06 00:47:00* Test Item Value Reference Range Interpretation Comments TROPONIN-I (test code = TROPI) <0.015 ng/mL 0-0.045 N BASIC METABOLIC SNBCD9924-52-70 00:36:00* Test Item Value Reference Range Interpretation [...] code = CA) mg/dL 8.5-10.1 HEPATIC FUNCTION CISKI6669-44-49 00:36:00* Test Item Value Reference Range Interpretation [...] TOTAL (test code = ALKP) IUnit/L 45-117 MKAWOE7940-99-08 00:36:00* Test Item Value Reference Range Interpretation Comments LIPASE (test code = LIP) U/L 73.0-393.0 AXAOVAWT-G6110-08-06 00:36:00* Test Item Value Reference Range Interpretation Comments TROPONIN-I (test code = TROPI) ng/mL 0-0.045 WQJDRWVLFJ4140-33-36 09:40:0010.1[facility] RnaijxyILDDHSVBSD1557-45-96 09:40:00 19.9[facility] HqzuxboHFPLVEULPN0745-23-50 09:40:0054.9[facility] HermannHEMATOLOGY 2017-12-15 09:40:009.8[facility] ZckylqbEMIQYJLMTZ4869-02-88 09:40:0015.3[facility] QqvvotgWJYTOWZOXB4031-61-45 09:40:000.1[facility] OnhyfkqOPRMKNJZQP4256-62-62 09:40:003.7[facility] EpwhonhGLXKXVBMAE7369-42-98 09:40:001.8[facility] DMRUSNNWXZ6742-96-47 09:40:002.8[facility] YgpbnvaRONBZZIHGL2873-00-71 09:40:000.0 [facility] EtehajvAOJBHZLWMC9251-07-66 09:40:008.1[facility] HermannHEMATOLOGY 2017-12-15 09:40:00* Test Item Value Reference Range Interpretation Comments MCH (test code = MCH) 29.1 pg 27.0-31.0 [facility] AewygejLNNVCDOCEK1233-96-49 09:40:0034.4[facility] HermannHEMATOLOGY 2017-12-15 09:40:0015.8[facility] XuhidvoORJTUUIZZP0679-98-90 09:40:62509Rpbfjodo UnffuvjJFWMYRAFCE4741-57-24 09:40:0084.5[facility] DoqtfzkATNLMZHUCC7395-50-90 09:40:0018.4[facility] QzlfmqiKKLKLDOASJ1398-26-52 09:40:008.7[facility] GIHFJYULGD2407-02-48 09:40:003.00[facility] JmcclssJYESTWACKW5688-81-43 09:40:00 25.3[facility] CxhiqclWQVYOPIWIN2365-59-08 09:40:0011.6[facility]annHEMATOLOGY 2017-12-15 09:40:0015.1[facility] OplfjjnAHSTNQPTAN1706-17-78 09:40:000.7[facility] UbalbbkBJLCNZXBGD9785-89-62 09:40:0052.6[facility] KijhdmsTKZNJEYHMX5773-22-55 09:40:0020.0[facility] HermannCHEM WCWCT8079-54-37 09:28:0088[facility] HermannCHEM ERFIL4089-96-87 09:28:0099[facility] HermannCHEM VPVDH1388-83-37 09:28:0016 [facility]annCHEM JNMEW0739-56-83 09:28:07131Yuhowkfl HermannCHEM PANEL 2017-12-14 09:28:000.90[facility] HermannCHEM IJDOU7668-93-10 09:28:008.8[facility] HermannCHEM SNRZG1508-49-14 09:28:0027[facility]annCHEM NVBDS7853-15-90 09:28:15940Mjfqlmkb HermannCHEM XWFUC4808-89-05 09:28:003.7[facility] HermannCHEM ZCRYN3180-02-55 09:28:0012.7[facility] OopqxlvQHCXDLNWFL0063-03-58 09:28:008.0 [facility] HittwfmVFRWZKYYHM5981-91-36 09:28:73520Kexwvvku HermannHEMATOLOGY 2017-12-14 09:28:0015.4[facility] HoocndwRNBRABRGWI6798-23-69 09:28:0031.2[facility] SfbcvruNWQJVHANHY6540-32-58 09:28:00* Test Item Value Reference Range Interpretation Comments MCH (test code = MCH) 27.0 pg 27.0-31.0 [facility] NicbkuqZTJUMPKBFP1693-65-72 09:28:0026.6[facility] HermannHEMATOLOGY 2017-12-14 09:28:0086.6[facility] IdviydcOFZFBFHIRX9421-90-91 09:28:008.3[facility] QldolulOZNNEUQHMR4945-29-41 09:28:003.07[facility] KmeteyxBXCISLVSPI7365-53-65 09:28:0019.5[facility] HmykppvOGSTDYRNPC7936-02-73 09:28:00Moderate *ABN*(12/14/17 4:28 AM)[facility] EksmyglXNEVMRDLSE4431-96-22 09:28:0056.0[facility] TRVZQVTCMK4948-48-64 09:28:001.0[facility] XbkdkoqORFIVIRMPQ4912-48-63 09:28:002.0 [facility] TklqkptMRMMZNUWJI8205-83-76 09:28:002.1[facility] HermannHEMATOLOGY 2017-12-14 09:28:00Normal (12/14/17 4:28 AM)[facility] SlqliujSKLADZQVZB7688-90-50 09:28:004.3[facility] UmufwueQULXHFXTLR9920-49-68 09:28:0021.0[facility] MBAYRLFPXE2562-71-60 09:28:0011.0[facility] QvnsvbsSLOWAUYACJ4631-48-79 09:28:00 1.0[facility] UpvvkbaXWJBIVPIBN9008-60-48 09:28:0010.0[facility]annHEMATOLOGY 2017-12-14 09:28:0011.1[facility] HermannCHEM RPMYP0239-12-71 09:43:003.0[facility] HermannCHEM ZRXTT5317-93-59 09:43:002.0[facility] WzladxmCKCJTTJRZOPL7811-12-63 09:43:0011.9[facility] HporgpuDGHRTCZGWOYK1472-42-92 09:43:0084[facility] ASOFCRQZZQSO9785-85-86 09:43:0018[facility] KrftmrnYQKHHZYFZSFH6886-77-40 09:43:00 87[facility] IsyfdfxWAHEONHKONJZ6351-95-43 09:43:003.9[facility] HermannELECTROLYTES 2017-12-13 09:43:001.10[facility] QrnoqsvVLNPAUQBFBNL5569-67-33 09:43:39548 [facility] PcxunjhVRLTKEIOHGJL0576-46-00 09:43:0098[facility] HermannELECTROLYTES 2017-12-13 09:43:008.8[facility] PksbtuvGLEZAQIPNFPK1127-71-02 09:43:0029[facility] HqbqlwwQPNOXJVUOC4318-34-66 09:43:00* Test Item Value Reference Range Interpretation Comments INR (test code = INR) 1.10 1 0.85-1.17 [facility] IbwfywqVAKZWPVWCK4106-36-72 09:43:00* Test Item Value Reference Range Interpretation Comments PT (test code = PT) 14.2 s 12.0-14.7 [facility] QmsuuwfVAUXOMBQIN0900-76-71 09:43:00* Test Item Value Reference Range Interpretation Comments PTT (test code = PTT) 35.0 s 22.9-35.8 [facility] CbdyvvfZHKEZNTYPC0933-05-97 09:43:000.1[facility] HermannHEMATOLOGY 2017-12-13 09:43:001.5[facility] LhjndtgDJVTEEOIES2079-66-15 09:43:001.7[facility] WjzzsqsZKUFMEHNQT1119-01-86 09:43:0011.5[facility] HiqpzknZGBXTBJFHI9700-50-21 09:43:000.4[facility] HwlmwxoIHWTXKKBVD9142-51-07 09:43:002.2[facility] ZFGPHZRQDN7891-02-71 09:43:008.0[facility] WnaainbZJVYUINKUG2790-89-10 09:43:17177 [facility] EfhakikOQCJCRUJMT3130-43-65 09:43:0015.4[facility] HermannHEMATOLOGY 2017-12-13 09:43:0033.5[facility] BpvhmmcKJKHRWTXRJ2613-78-29 09:43:00* Test Item Value Reference Range Interpretation Comments MCH (test code = MCH) 28.7 pg 27.0-31.0 [facility] BqfishrBVIXORCLHP3797-38-70 09:43:002.99[facility] HermannHEMATOLOGY 2017-12-13 09:43:0085.6[facility] ZzgfnniSVKRQMOFVE1461-29-79 09:43:008.6[facility] SwqxuteXXIDVFUEPP7876-49-66 09:43:0017.1[facility] WmjfdcfFGMGDPZWPW2885-88-57 09:43:0025.6[facility] LgblhejILWFNUDNLP4086-13-29 09:43:001.0[facility] YSTRYINUBG3453-63-61 09:43:002.1[facility] FlzqlmdGRNYULMABY9501-80-50 09:43:00 Moderate *ABN*(12/13/17 4:43 AM)[facility] NkeqkfqEJLXOOYCSL4489-26-38 09:43:000.0 [facility] KkpoffpTKZTACUFXF4179-42-76 09:43:00Normal (12/13/17 4:43 AM)[facility] DdcalszANCRDKOLUR3825-77-11 09:43:0012.0[facility] EnjdaxmSTMZUHYMKJ1025-98-83 09:43:001.9[facility] BpdbkcfCEDPEHYAMV2095-12-43 09:43:001.2[facility] PARATHYROID FLJPQKH3832-40-13 09:43:001.07[facility] HermannPARATHYROID PROFILE 2017-12-13 09:43:001.10[facility] HermannCHEM KYYHT3916-48-14 07:16:002.0[facility] HermannCHEM GHJQR5106-74-77 07:16:003.0[facility] SkmwtonJZDSXRBPEMAF6342-25-54 07:16:0013.3[facility] OtdsznxCHMNBRYGWICD5570-40-35 07:16:0068[facility] FMOIQBWGHOHZ9881-23-84 07:16:008.9[facility] FmdvimpECSVGIYLPCWE9605-15-38 07:16:0019[facility] TeptnpjATDDCGTLDIQT4721-03-43 07:16:0097[facility] WGGGWCHVCQUZ2307-51-22 07:16:003.3[facility] LekuceaEBNMLAZBCRFO1497-77-05 07:16:0033[facility] OunpfqhTUUGDDBXTVAF3937-09-62 07:16:39413Gdjmnlcv [place] BADZKSCYYPYV5045-22-14 07:16:0092[facility] QzhkqpwVUTOJQZDYBRJ1220-21-96 07:16:00 1.30[facility] VxlzjahPTTNKUGEVE7545-92-36 07:16:00* Test Item Value Reference Range Interpretation Comments PTT (test code = PTT) 40.2 s 22.9-35.8 [facility] RarngsoXRKPYRLUMB8064-57-02 07:16:00* Test Item Value Reference Range Interpretation Comments INR (test code = INR) 1.26 1 0.85-1.17 [facility] PkqtxejAQWCADTSQT7246-43-78 07:16:00* Test Item Value Reference Range Interpretation Comments PT (test code = PT) 15.9 s 12.0-14.7 [facility] DiawyxlQNXKRDGIHV9164-60-23 07:16:000.1[facility] HermannPARATHYROID DZTPOVZ8471-81-36 07:16:001.10[facility] HermannPARATHYROID MOWLFGH5633-69-17 07:16:001.06[facility] OvawfbjMOQLEOGXZB3887-14-27 08:17:001[facility] IKZBNJPTBY0657-51-93 08:17:00Normal (12/11/17 3:17 AM)[facility]annHEMATOLOGY 2017-12-11 08:17:00Normal (12/11/17 3:17 AM)[facility] OltezufDPKIGZAVDV4463-95-97 08:17:002.0[facility] FhiyblcGSPVBBBMIC4282-34-77 08:17:000.0[facility]annURINE AND CLLFQ5855-00-30 23:58:00<=1.0[facility]annUR[facility] AND IPPKT0861-90-62 23:58:91451[place] HermannURINE AND FAYSZ6752-25-62 23:58:001[facility] URINE AND QHQOD1044-05-46 23:58:001[facility]annURINE AND VFWVD1594-01-83 23:58:00Small *ABN*(12/10/17 6:58 PM)[facility] FVNGW7780-31-05 23:58:00Negative *NA*(12/10/17 6:58 PM)[facility] AND JJDLQ2300-08-12 23:58:00Negative (12/10/17 6:58 PM)[facility] LSNOT8084-84-02 23:58:00Clear (12/10/17 6:58 PM)[facility] AND YMFYQ4864-76-14 23:58:00* Test Item Value Reference Range Interpretation Comments UA pH (test code = UA pH) 7.0 1 5.0-8.0 [facility] GWNRF3608-64-93 23:58:00* Test Item Value Reference Range Interpretation Comments UA Spec Grav (test code = UA Spec Grav) 1.009 1 [facility] PDOQO4384-60-48 23:58:00Negative (12/10/17 6:58 PM) [facility]annCHEM QZTHH9503-82-09 18:21:00* Test Item Value Reference Range Interpretation Comments Procalcitonin Lvl (test code = Procalcitonin Lvl) 4.32 1 <=0. 10 [facility]annCHEM ZODWD0774-88-88 07:59:001.5[facility] HermannPARATHYROID TVECFGG1364-48-37 07:59:001.06[facility] HermannPARATHYROID DJAVMXN9610-31-65 07:59:001.00[facility]annCHEM BNXQV9934-17-81 18:40:003.3[facility] LUVREPQWAC9260-10-09 18:40:00* Test Item Value Reference Range Interpretation Comments PTT (test code = PTT) 30.7 s 22.9-35.8 [facility] GchelxaPEQXVTOHSR1281-57-99 18:40:00* Test Item Value Reference Range Interpretation Comments INR (test code = INR) 1.20 1 0.85-1.17 [facility] QlzltjlQFTCKZATVX1692-27-10 18:40:00* Test Item Value Reference Range Interpretation Comments PT (test code = PT) 15.3 s 12.0-14.7 [facility] BFILAKS5485-11-99 08:49:00Product available 3(12/09/17 3:49 AM)[facility]annCHEM GZPDC0425-93-67 08:00:000.2[facility]annCHEM SBHDR8361-89-03 08:00:002.7[facility]annCHEM FQLBL9704-99-26 08:00:0048 [facility]annCHEM WKPRH4563-25-88 08:00:0032[facility]annCHEM PANEL 2017-12-09 08:00:00* Test Item Value Reference Range Interpretation Comments A/G Ratio (test code = A/G Ratio) 0.8 1 0.7-1.6 [facility]annCHEM SGRPE6996-67-65 08:00:0027[facility] HermannCHEM PANEL 2017-12-09 08:00:002.1[facility]annCHEM BZRCJ7205-07-57 08:00:004.8[facility]annCHEM GWUXI8444-87-53 08:00:00* Test Item Value Reference Range Interpretation Comments B/C Ratio (test code = B/C Ratio) 13 03-12 [facility] HermannCHEM FMYFZ8308-14-58 20:50:001.3[facility] HermannCHEM PANEL 2017-12-08 20:50:00* Test Item Value Reference Range Interpretation Comments Procalcitonin Lvl (test code = Procalcitonin Lvl) 0.08 1 <=0. 10 [facility]lakeVimvqmxTDFPYXCHDA6763-29-29 20:50:96792Ysapfdmq HermannCHEM PANEL 2017-12-08 15:30:0039[facility] HermannCHEM HIBLJ1301-78-06 15:30:0035[facility]annCHEM FYIUV9379-59-88 15:30:000.5[facility] HermannCHEM BSGPU9562-61-07 15:30:00* Test Item Value Reference Range Interpretation Comments A/G Ratio (test code = A/G Ratio) 0.9 1 0.7-1.6 [facility] HermannCHEM ZUWCQ9572-16-43 15:30:002.9[facility] HermannCHEM PANEL 2017-12-08 15:30:002.5[facility] HermannCHEM FWZBX4776-99-83 15:30:0027[facility]annCHEM WZVTH3374-68-86 15:30:00* Test Item Value Reference Range Interpretation Comments B/C Ratio (test code = B/C Ratio) 9 03-12 [facility] HermannCHEM GEYVI3453-97-58 15:30:005.4[facility] HermannCHEM PANEL 2017-12-08 15:30:002.5[facility] HermannCARDIAC [id number] 15:23:00<0.02 [facility] PwzgzmlYPFTNEOADY8154-77-12 15:23:90349Feflqxby HermannBLOOD BANK TVVKQXJ8737-55-99 14:08:00Product available (12/08/17 9:08 AM)[facility] BLOOD BANK [id number] 14:03:00Product available (12/08/17 9:03 AM)[facility] JxkfpaaSFITWJCZDS0366-20-79 13:12:004.8[facility] KpvwyuyYDUGDRUHFZ1450-73-75 13:12:001.3[facility] NtbeeqrXBSZPQEHLU8508-41-81 13:12:00Negative *NA*(12/08/17 8:12 AM)[facility] CbgkifoLOOSRIBTAZ0807-73-61 13:12:001.7[facility] HermannCHEM VNCTY8132-81-09 11:45:001.5[facility] HermannCHEM [id number] 11:45:000.5 [facility] HermannCHEM CJCAX6160-09-80 11:45:005.0[facility] HermannCHEM PANEL 2017-12-08 11:45:002.4[facility] HermannCHEM [id number] 11:45:00* Test Item Value Reference Range Interpretation Comments B/C Ratio (test code = B/C Ratio) 13 1 6-25 [facility]annCHEM [id number] 11:45:0034[facility] HermannCHEM PANEL 2017-12-08 11:45:0019[facility] HermannCHEM [id number] 11:45:0020[facility] HermannCHEM [id number] 11:45:00* Test Item Value Reference Range Interpretation Comments A/G Ratio (test code = A/G Ratio) 0.9 1 0.7-1.6 [facility]annCHEM [id number] 11:45:002.6[facility] HermannHEMATOLOGY 2017-12-08 11:45:00Normal (12/08/17 6:45 AM)[facility] GotggwyZNUOCGNVTR8760-92-58 11:45:00* Test Item Value Reference Range Interpretation Comments Max Amplitude Rapid (test code = Max Amplitude Rapid) 57 mm 52-71 [facility]xvjcqjNXIGLMFDOT1372-63-07 11:45:006.6[facility]HE[facility]OLOG[facility] 2017-12-08 11:45:00* Test Item Value Reference Range Interpretation Comments Split Point Rapid (test code = Split Point Rapid) 0.6 min [facility]IbjomzvGJJQRNIGQZ1635-36-92 11:45:002.9[facility]HE[facility]OLOG[facility] 2017-12-08 11:45:00* Test Item Value Reference Range Interpretation Comments R-time Rapid (test code = R-time Rapid) 0.7 min 0.4-0.7 [facility]lakeBamdvhjLOCTFLRUYI0993-36-80 11:45:00* Test Item Value Reference Range Interpretation Comments Angle Rapid (test code = Angle Rapid) 73 degrees 64-80 [facility] HospitalIuzrvzpINSYPPWGMC3338-24-76 11:45:00* Test Item Value Reference Range Interpretation Comments K-time Rapid (test code = K-time Rapid) 1.4 min 0.6-2.3 [facility] HospitalIufrwxwZBGTVWZNUM1706-54-15 11:45:00* Test Item Value Reference Range Interpretation Comments ACT (TEG) Rapid (test code = ACT (TEG) Rapid) 113 s 86-118 [facility] [id number] 10:41:00Product available (12/08/17 5:41 AM)[facility] [id number] 10:41:00Product available 2(12/08/17 5:41 AM)[facility] BANK [id number] 10:41:00Product available (12/08/17 5:41 AM)[facility]lake[facility]BACT[facility] - [id number] 09:27:00Negative (12/08/17 4:27 AM)[facility] HermannBACTERIAL - [id number] 09:27:00Urine *NA*(12/08/17 4:27 AM)[facility]CARDIAC [id number] 09:27:00<0.02[facility] QprhdxqNSQOMKAQTN4374-41-59 09:27:42100Sncszyye [place] XUOIGKTTZU6787-90-57 09:27:000.45[facility] PkfrqqnSYTIPKADUL7031-42-24 09:27:00< 1.3[facility] UdiaenpZEDXVVDIGQ3466-15-86 09:27:00Not Detected (12/08/17 4:27 AM) [facility] VrytfoxOAIVZPOZUE7787-87-97 09:27:00Positive *ABN*(12/08/17 4:27 AM) [facility]annURINE AND [id number] 07:30:0050[facility]annURINE AND [id number] 07:30:002.0[facility]annURINE AND [id number] 07:30:00 Small *ABN*(12/08/17 2:30 AM)[facility] AND [id number] 07:30:00 Negative *NA*(12/08/17 2:30 AM)[facility]annUR[facility] AND [id number] 07:30:00 6[facility]annURINE AND [id number] 07:30:00* Test Item Value Reference Range Interpretation Comments UA Spec Grav (test code = UA Spec Grav) 1.021 1 [facility] AND [id number] 07:30:00Slight *ABN*(12/08/17 2:30 AM) [facility] AND [id number] 07:30:00* Test Item Value Reference Range Interpretation Comments UA pH (test code = UA pH) 5.0 1 5.0-8.0 [facility] AND [id number] 07:30:00Negative (12/08/17 2:30 AM) [facility] AND [id number] 07:30:001[facility]annUR[facility] AND [id number] 07:30:00Negative (12/08/17 2:30 AM)[facility] HermannBLOOD BANK [id number] 06:28:00Product available 1(12/08/17 1:28 AM)[facility] BACTERIAL - [id number] 04:11:00Negative (12/07/17 11:11 PM)[facility] HermannDRUG [id number] 04:11:00Negative *NA*(12/07/17 11:11 PM)[facility] HermannDRUG [id number] 04:11:00Negative *NA*(12/07/17 11:11 PM)[facility]annDR[facility] [id number] 04:11:00Negative *NA*(12/07/17 11:11 PM)[facility] HermannDRUG [id number] 04:11:00Negative *NA*(12/07/17 11:11 PM)[facility] HermannDRUG [id number] 04:11:00Negative *NA*(12/07/17 11:11 PM)[facility] HermannDRUG [id number] 04:11:00Positive *ABN*(12/07/17 11:11 PM)[facility] HermannDRUG [id number] 04:11:00Negative *NA*(12/07/17 11:11 PM)[facility]DR[facility] [id number] 04:11:00See Note (12/07/17 11:11 PM)[facility] BLOOD BANK [id number] 04:04:00Negative (12/07/17 11:04 PM)[facility] CARDIAC PKPACJL0637-98-75 04:04:003[facility] HermannCARDIAC SPRTTDJ3687-04-20 04:04:00<0.02[facility]CHE[facility] [id number] 04:04:00<0.05[facility] [id number] 04:04:00* Test Item Value Reference Range Interpretation Comments VLDL (test code = VLDL) 25 1 [facility] XiykslpJZKMBK9267-18-69 04:04:0095[facility] AhbqvnaQKRNQF0025-81-34 04:04:75641Tbqlytqg CgjpqihICJNAF6710-25-68 04:04:0015[facility] HermannLIPIDS 2017-12-08 04:04:00* Test Item Value Reference Range Interpretation Comments CHD Risk (test code = CHD Risk) 9.00 1 4.00-7.30 [facility] OdgaoyrMBLJFV8264-50-20 04:04:93091Hdgvnqen HermannSPECIAL CHEMISTRY 2017-12-08 04:04:005.1[facility]nie
--- NOTE | 2020-02-24 07:03 | NUR ---
{null, Report to EMILY Augustine }
[2020-02-24] MEDS ORDERED: HYDRALAZINE HCL 20 MG/ML VIAL IV PRN (08:00)
[2020-02-24] MEDS ORDERED: ACETAMINOPHEN 325 MG TAB PO PRN (08:00)
[2020-02-24 14:47] VITALS: BP 142/91
[2020-02-24] MEDS: MORPHINE SULFATE INJ 4 MG/ML INJ 1ML IV PRN (14:50)
[2020-02-24 15:20] VITALS: BP 142/91
[2020-02-24] MEDS ORDERED: NEXIUM20 MG PO (15:28)
--- NOTE | 2020-02-24 15:38 | NUR ---
{null, Patient arrived to the unit at 1500. Patient came via stretcher with EMILY Augustine from ER. Patient AOx3, patient IV is leaking, and was removed. Patient assessed and oriented to room, procedures, and plan of care. Patient's doctor aware he is here, Dr. Roma Kirby is already aware, Dr. Garcia called to be consulted as well. Patient medications reconciled, no other questions or concerns at this time. }
[2020-02-24] MEDS: LACTOBACILLUS ACIDOPHILUS CAPSULE PO SCH (16:56)
[2020-02-24 20:00] VITALS: BP 148/87
[2020-02-24 20:20] VITALS: BP 148/87
[2020-02-24] MEDS: NICOTINE 21 MG/EA PATCH TOP SCH (20:20)
--- NOTE | 2020-02-24 20:20 | NUR ---
{null, PATIENT IS IN STABLE CONDITION AOX4, NO SIGNS OF DISTRESS NOTED. IV FLUIDS ARE RUNNING AT ORDERED RATE AND PATIENT VOICES NO PAIN AT THIS TIME. PATIENT VOICED UNDERSTANDING OF NPO AFTER MIDNIGHT FOR PROCEDURE IN THE MORNING. BED IS IN LOWEST POSITION, BOTH SIDE RAILS ARE UP, CALL LIGHT IS WITHIN EASY REACH, WILL CONTINUE TO MONITOR. }
[2020-02-25] VITALS (8 sets, daily range): BP systolic 130–156; BP diastolic 78–99
[2020-02-25] MEDS: PIPER-TAZ 3.375 GM 50 ML IV SCH ×5 (00:55→23:30)
--- NOTE | 2020-02-25 03:11 | History and Physical ---
PCP: None. CHIEF COMPLAINT: Severe abdominal pain with diarrhea. HISTORY OF PRESENT ILLNESS: This is a 44-year-old male with past medical history of polycythemia, status post splenectomy, who presented to the ER initially 4 weeks ago with complaints of abdominal pain and diarrhea. He reports had gone to [facility], where he was admitted and his symptoms improved once antibiotics were started. He was released on p.o. antibiotics, but continued to have the symptoms. Last week, again had similar symptoms with increased diarrhea. He came into the hospital for evaluation. He was given Cipro and Flagyl. He reports he has had worsening of the diarrhea for the past few days since starting the antibiotics. He reports the stool is green and watery, associated with bloating, weakness, nausea, and vomiting. He reports the pain is in the left upper quadrant, radiating to the lower, reports the pain is constant. He reports melena and foul odor gas and stool. In the ER, he was noted to have white blood cells of 22,000, platelets 583. CK of 828. Lipase of 94. He was started on Zosyn and admitted for further evaluation. PAST MEDICAL HISTORY: 1. Polycythemia. 2. Tobacco dependent. PAST SURGICAL HISTORY: 1. Splenectomy. 2. Tonsillectomy. FAMILY MEDICAL HISTORY: Mother has hypertension and cancer. SOCIAL HISTORY: He reports smoking a pack a day. He denies alcohol and illicit drug use. Recently, he moved to this area. ALLERGIES: CEPHALEXIN AND IODINE. REVIEW OF SYSTEMS: Twelve-system review was negative except as noted above. PHYSICAL EXAMINATION: VITAL SIGNS: Temperature 98.8, pulse is 92, respirations 18, blood pressure 138/94, pulse ox is 98% on room air. GENERAL: Fatigue. HEENT: Normocephalic and atraumatic. NECK: Supple. LUNGS: Clear to auscultation. CARDIOVASCULAR: Regular rate and rhythm. GI: Soft with left upper quadrant tenderness. NEUROLOGIC: Alert, awake, and oriented x3. MUSCULOSKELETAL: Moves all extremities. No edema. SKIN: Dry and intact. PSYCH: Calm. LABORATORY DATA: WBC 22.2, RBC 6.22, hemoglobin 16.8, hematocrit 49.2, and platelets 583. Sodium 141, potassium 3.9, CO2 of 24, BUN 8, creatinine 1.38. Estimated GFR 57, glucose 81, lactic acid 1.0, AST 54, ALT 90, CK 828. Troponin 0.001. BNP less than 10. Lipase 94. Urine is insignificant. Coronavirus PCR is not detected. C diff is pending. Blood culture is pending. IMAGING: CT abdomen and pelvis shows increasing pulmonary ground-glass airspace opacities. This may be due to atypical pneumonia or reactive airway disease and no evidence of bowel obstruction or inflammation and shows possible waste blockage. IMPRESSION AND PLAN: 1. Abdominal pain associated with diarrhea. We will check stool for Clostridium difficile. Continue Zosyn. CT abdomen and pelvis noted. GI has been consulted. 2. Acute kidney injury, may be due to diarrhea. We will continue with IV fluid hydration. 3. Polycythemia. WBC is 22.2, platelets 583. Hematology has been consulted. 4. Rhabdomyolysis. CK was 828. Likely due to dehydration as a result of diarrhea. We will continue with IV fluid hydration and repeat labs. 5. Elevated LFTs. Denies history of hepatitis. We will check hepatitis panel. 6. Tobacco use. Discussed smoking cessation. Nicotine patch p.r.n. 7. Deep vein thrombosis prophylaxis. SCDs for now. The patient is ambulatory. Plan is to continue clear liquids, GI and Hematology eval pending. Dictated by SHEELA Kunz Lawanda Moraes MD MY/MODL /[id number]
[2020-02-25] MEDS: SODIUM CHLORIDE 0.9% 1000ML 1,000 ML IV SCH ×2 (04:00→19:24)
[2020-02-25] MEDS: PANTOPRAZOLE 40 MG 10ML VIAL IV SCH ×2 (05:20→16:14)
[2020-02-25 06:18] LABS: BASOPHILS # (AUTO) 0.1 (0.0-0.1); BASOPHILS % 0.7 % (0.0-1.0); EOSINOPHILS # (AUTO) 0.6 (0.0-0.4); EOSINOPHILS % 3.9 % (0.0-6.0); HEMATOCRIT 46.9 % (38.2-49.6); HEMOGLOBIN 16.5 g/dL (14.0-18.0); MEAN CORPUSCULAR HEMOGLOBIN 28.8 pg (28-32); MEAN CORPUSCULAR HGB CONC 35.2 g/dL (31-35); MEAN CORPUSCULAR VOLUME 81.8 fL (81-99); MONOCYTES # (AUTO) 1.7 (0.2-0.8); MONOCYTES % 11.5 % (4.4-11.3); NEUTROPHILS # (AUTO) 7.3 (2.1-6.9); NEUTROPHILS % 49.3 % (38.7-80.0); PLATELET COUNT 502 x10e3/uL (140-360); RED BLOOD COUNT 5.73 x10e6/uL (4.3-5.7); RED CELL DISTRIBUTION WIDTH 25.1 % (11.7-14.4)
[2020-02-25 07:50] LABS: ALBUMIN 3.4 g/dL (3.5-5.0); ALBUMIN/GLOBULIN RATIO 1.3 (0.8-2.0); ANION GAP 13.2 mmol/L (8-16); CALCIUM 8.6 mg/dL (8.4-10.2); CREATININE, SERUM 1.33 mg/dL (0.72-1.25); POTASSIUM 4.2 mmol/L (3.5-5.1)
[2020-02-25] MEDS: NICOTINE 21 MG/EA PATCH TOP SCH (08:51)
[2020-02-25] MEDS: LACTOBACILLUS ACIDOPHILUS CAPSULE PO SCH ×2 (08:51→16:04)
[2020-02-25] MEDS ORDERED: PANTOPRAZOLE SOD 40 MG TABEC PO SCH (09:00)
[2020-02-25 12:03] LABS: TARGET CELLS MODERATE
[2020-02-25 12:04] LABS: ANISOCYTOSIS SLIG; PLATELET ESTIMATE ADEQUATE; POIKILOCYTOSIS SLIGHT
[2020-02-25 12:05] LABS: PLATELET MORPHOLOGY COMMENT NORMAL
[2020-02-25] MEDS: ENOXAPARIN SOD INJ 40 MG/0.4 ML SYR SC SCH (16:23)
--- NOTE | 2020-02-25 16:24 | Progress Note ---
DATE: 02/25/2020 CONSULTANTS: 1. Dr. Henry with Hematology. 2. Dr. Kirby with GI. CHIEF COMPLAINT: Abdominal pain with diarrhea greater than one month. SUBJECTIVE: The patient reports abdominal pain is improved, rating it 3/10. He is n.p.o. for HIDA scan. He reports diarrhea is dark now, but still present. He denies any chest pain, shortness of breath, any waldo blood in the stool. PHYSICAL EXAMINATION: VITAL SIGNS: Temperature 98.3, pulse is 109, respirations 17, blood pressure 137/99, pulse ox is 98% on room air. GENERAL: No acute distress. HEENT: Normocephalic, atraumatic. LUNGS: Clear to auscultation. CARDIOVASCULAR: Regular rate and rhythm. GI: Soft and left upper quadrant mild tenderness with palpation. NEUROLOGIC: Alert, awake, and oriented x3. MUSCULOSKELETAL: Moves all extremities. No edema. SKIN: Dry and intact. PSYCH: Calm. LABORATORY DATA: WBC 14.75, hemoglobin 16.5, hematocrit 46.9, platelet is 502, therapeutic range is 275. Sodium 136, potassium 4.2, BUN is 6, creatinine 1.33, estimated GFR 59, total bilirubin is 1.7, AST 46, ALT 74. CPK 669. Stool occult is positive. C diff is negative. Coronavirus not detected. IMPRESSION: 1. Abdominal pain associated with diarrhea. Stool for Clostridium difficile was negative. Occult blood was positive. Continue Zosyn. GI has been consulted. Continue PPI and probiotics. 2. Acute kidney injury. Continue with IV fluid hydration. Creatinine is 1.33. 3. Polycythemia. WBC was 22.2, now improving 14.7. Status post splenectomy. Defer to historic sites registrar. 4. Mild rhabdomyolysis. CK was 669. We will continue to hydrate with IV fluids and repeat labs. 5. Elevated LFTs. Contracted gallbladder on CT scan. HIDA scan pending. 6. Tobacco abuse. Discussed smoking cessation. Nicotine patch p.r.n. 7. Deep vein thrombosis prophylaxis. Lovenox daily. PLAN: Continue current treatment. HIDA scan pending. Further recs per GI and historic sites registrar. Dictated by Diana Mehta, SHEELA MD NICOLE Burris/ERASMO /[id number] MTDD
--- NOTE | 2020-02-25 17:04 | NUR ---
{null, Nutrition Screen Note RD Recommendation for Physician: - As feasible, ADAT to GI Soft diet Plan of Care: RD following, monitoring for tolerance and adequacy Nutrition reason for involvement: Nutrition Risk Trigger Primary Diagnose(s): abdominal pain, diarrhea PMH: GERD, splenectomy Ht: 68 in Wt: 195 lb BMI: 29.6 kg/m2 IBW: [address] Assessment: (02/24) 44 YOM admitted for abdominal pain and diarrhea. Pt seen today per MST screen. Pt reports good appetite and po intake SAND BOBBER and reports UBW of 205# a month ago- no significant wt change noted. Pt reports ongoing diarrhea x 1 month with black stools currently and SAND BOBBER. Pt NPO for HIDA scan today. Pt and at bedside with no questions or concerns at time of visit. Chart reviewed. Labs and meds reviewed. Will continue to monitor. Current Diet: NPO for HIDA scan Malnutrition Evaluation (02/25/20) The patient does not meet criteria for a specified degree of malnutrition at this time. Will re-evaluate at follow-up as appropriate. Diet Education Needs Assessment: Diet education not indicated. Diet tolerance: tolerating po Nutrition Care Level: low Signed: Jordana Crabtree RD, LD, CNSC }
--- NOTE | 2020-02-25 19:15 | NUR ---
{null, patient out of room at this time. }
--- NOTE | 2020-02-25 20:00 | NUR ---
{null, patient back in room. patient oob to chair at this time. ivf resumed per orders. no c/o pain noted. pm assessment complete. patient instructed to call for assistance when needed. }
--- NOTE | 2020-02-25 21:52 | Diagnostic Imaging Report ---
Hepatobiliary Scan with Gallbladder Ejection Fraction Clinical information: Abdominal pain Technique: Following intravenous administration of 6.6 millicuries of Tc-99m mebrofenin, dynamic images of the abdomen in the anterior projection were obtained through 60 minutes. Sincalide (CCK analog) 1.8 micrograms was administered intravenously over 30 minutes with additional imaging for determination of gallbladder ejection fraction. Discussion: Perfusion of the liver is normal. Extraction of tracer by the liver parenchyma is normal. Tracer appears promptly within the biliary tract. The gallbladder begins to fill by 14 minutes post injection of tracer and fills adequately. Tracer is seen in the small bowel by 18 minutes. The gallbladder ejection fraction with sincalide is 2% (normal greater than 40%). Impression: 1. Filling of the gallbladder excludes acute cystic duct obstruction/acute cholecystitis. 2. The decreased gallbladder ejection fraction of 2% supports the clinical diagnosis of chronic cholecystitis/gallbladder dyskinesia. Signed by: Dr. Letha Lennon M.D. on 02/25/2020 9:48 PM
[2020-02-26] VITALS (7 sets, daily range): BP systolic 108–135; BP diastolic 58–89
--- NOTE | 2020-02-26 01:00 | NUR ---
{amrit, Dr. Roma Kirby here to see patient. patient will have egd today. patient made aware of this at this time. patient to remain npo for the egd. patient verbalizes understanding of this. }
[2020-02-26] MEDS: PANTOPRAZOLE 40 MG 10ML VIAL IV SCH ×2 (05:00→18:34)
[2020-02-26] MEDS: PIPER-TAZ 3.375 GM 50 ML IV SCH ×4 (05:09→23:14)
--- NOTE | 2020-02-26 05:30 | NUR ---
{null, consent obtained for egd at this time and placed on chart. }
[2020-02-26] MEDS: NICOTINE 21 MG/EA PATCH TOP SCH (09:00)
[2020-02-26] MEDS: LACTOBACILLUS ACIDOPHILUS CAPSULE PO SCH ×2 (09:00→18:34)
[2020-02-26] MEDS: SODIUM CHLORIDE 0.9% 1000ML 1,000 ML IV SCH ×2 (10:41→21:35)
--- NOTE | 2020-02-26 12:45 | NUR ---
{null, PT TRANSPORTED TO OR VIA STRETCHER. OR }
[2020-02-26] MEDS ORDERED: ONDANSETRON HCL 4 MG ORAL DISINTEGRATING TAB PO PRN (14:00)
--- NOTE | 2020-02-26 14:50 | NUR ---
{null, PT RETURNED TO ROOM VIA STRETCHER AWAKE,DENIES PAIN,NO DISTRESS NTOE }
--- NOTE | 2020-02-26 15:24 | Operative Report ---
DATE OF PROCEDURE: 02/26/2020 SURGEON: Aaron Kirby MD PROCEDURE: An EGD with biopsies. INDICATIONS FOR EGD: Upper abdominal pain, melena, positive occult blood in stools. MEDICATIONS: The patient was done under MAC, please see anesthesiologist's note. PROCEDURE IN DETAIL: With the patient in left lateral decubitus position, a flexible fiberoptic Olympus gastroscope was introduced into the esophagus under direct visualization without any difficulty. There was some patchy erythema noted in distal esophagus. The scope was then advanced with ease into the stomach and mucosa overlying the antrum and the body revealed some diffuse erythema, low-grade to moderate edema, and biopsies were obtained, sent to stain for H pylori. Pylorus was of normal contour and shape, was intubated with ease and the scope was advanced all the way to the second portion of the duodenum. The scope was then withdrawn slowly and biopsies were obtained from the proximal second portion and the duodenal bulb. The scope was then withdrawn back into the stomach and retroflexed, and mucosa overlying the fundus and the cardia appeared to be within normal limits. The scope was then straightened out, it was subsequently withdrawn. The patient tolerated the procedure well. IMPRESSION: 1. Distal esophagitis. 2. Gastritis, biopsied. Biopsies sent to stain for Helicobacter pylori. 3. Rule out sprue. PLAN: Follow up histology. Continue PPI therapy. Findings do not explain the patient's melena. The patient will need a colonoscopy. It can be done on an outpatient basis in 6 to 8 weeks after finishing the antibiotic treatment for diverticulitis. Aaron Kirby MD [facility] /[id number] cc: Lawanda Moraes MD
[2020-02-26] MEDS: ENOXAPARIN SOD INJ 40 MG/0.4 ML SYR SC SCH (18:34)
--- NOTE | 2020-02-26 18:36 | NUR ---
{null, PT IN BED ,DENIES PAIN . }
--- NOTE | 2020-02-26 18:49 | Progress Note ---
DATE: 02/26/2020 CONSULTANTS: 1. Dr. Henry with Hematology. 2. Dr. Kirby with GI. 3. Dr. Mahoney with Surgery. CHIEF COMPLAINT: Abdominal pain with diarrhea greater than one month. SUBJECTIVE: The patient is status post EGD this morning, reports pain is still present. HIDA showed chronic cholecystitis with dyskinesia. He denies any chest pain, shortness of breath, nausea, or vomiting. PHYSICAL EXAMINATION: VITAL SIGNS: Temperature 97.8, pulse is 97, respirations 12, blood pressure 124/52, and pulse ox is 100% on room air. GENERAL: No acute distress. HEENT: Normocephalic and atraumatic. LUNGS: Clear to auscultation. CARDIOVASCULAR: Regular rate and rhythm. GI: Soft with left-sided tenderness with palpation. NEUROLOGIC: Alert, awake, and oriented x3. MUSCULOSKELETAL: Moves all extremities. No edema. SKIN: Dry. PSYCH: Calm. LABORATORY DATA: Creatinine 1.33 and glucose 82. Total bilirubin 1.7, AST 46, ALT 74, 489. IMAGING: HIDA scan shows decreased gallbladder ejection fraction of 2%, suggesting chronic cholecystitis and gallbladder dyskinesia. IMPRESSION: 1. Abdominal pain associated with diarrhea. Stool for Clostridium difficile was negative. Occult blood positive. GI was consulted, status post EGD today. Continue PPI and Zosyn. 2. Chronic cholecystitis and dyskinesia. General surgeon consulted. Appreciate input. 3. Acute kidney injury. Continue IV fluid hydration. 4. History of polycythemia. WBC is improving. Status post splenectomy. Hematology has been consulted, status post phlebotomy. 5. Mild rhabdomyolysis. CK 669, now improved to 400. We will continue with IV fluid hydration. 6. Elevated LFTs and bilirubin. Likely due to the chronic cholecystitis. 7. Tobacco abuse. Discussed smoking cessation. Nicotine patch p.r.n. 8. Deep vein thrombosis prophylaxis. Lovenox daily. PLAN: To continue current treatment. Status post EGD, further recommendations per surgical team. Dictated by SHEELA Kunz Brianaching Wade Moraes MD MY/MODL /[id number]
--- NOTE | 2020-02-26 19:00 | NUR ---
{null, patient received awake, alert, sitting up in bed. no c/o pain noted. ppm assessment complete. patient instructed to call for assistance when needed. }
[2020-02-26] MEDS ORDERED: PROPOFOL IV EMULSION 10 MG/ML 20 ML VIAL ONE (20:02)
[2020-02-26] MEDS: MORPHINE SULFATE INJ 4 MG/ML INJ 1ML IV PRN (21:30)
--- NOTE | 2020-02-26 21:30 | NUR ---
{null, patient medicated with morphine 4mg ivp for c/o abd pain 02/25 at this time. }
--- NOTE | 2020-02-26 22:25 | Consultation ---
DATE OF CONSULTATION: 02/26/2020 HISTORY OF PRESENT ILLNESS: The patient is a 44-year-old male, who admitted to the hospital with complaints of abdominal pain with nausea and diarrhea. He has had these symptoms for about a month. Pain is epigastric, a little more to the left. He has been evaluated with imaging, was found to have abnormal HIDA scan with lower ejection fraction of 2% with reproduction of his symptoms. He also had upper GI endoscopy, which revealed some gastritis, but no explanation for his pain. PAST MEDICAL HISTORY: Significant for polycythemia vera, for which he underwent splenectomy 2 years ago. He has also had previous tonsillectomy. MEDICATION: He takes Nexium. ALLERGIES: KEFLEX AND IODINE. FAMILY HISTORY: Noncontributory. SOCIAL HISTORY: The patient smokes cigarettes about a pack a day. He does not drink alcohol. REVIEW OF SYSTEMS: As stated above, otherwise was negative. PHYSICAL EXAMINATION: GENERAL: The patient is awake and alert, in no distress. VITAL SIGNS: Normal. HEENT: Sclerae is not icteric. NECK: Supple with no masses. LUNGS: Equal breath sounds are clear bilaterally. CARDIAC: Regular rate and rhythm. No murmur. ABDOMEN: Mildly tender in the epigastrium. There is no mass. No distention. There is a healed midline wound. EXTREMITIES: Have no edema. NEUROLOGIC: Grossly intact. LABORATORY TESTS: The white blood count on admission was 22, now is 14.7; hemoglobin and hematocrit are normal 16 and 47. Chemistries with slightly elevated bilirubin 1.7. ASSESSMENT: A 44-year-old male with findings suggestive of chronic cholecystitis. He will benefit from cholecystectomy as symptoms are consistent with gallbladder disease. PLAN: Laparoscopic surgery for tomorrow. Procedure was explained to the patient including risks, benefits, and alternatives; he understands, he has had the opportunity to ask questions. He is aware of the possible need for open surgery. Thank you for asking me to see Mr. Murdock. MD KINGSLEY Downey/ERASMO /[id number]
--- NOTE | 2020-02-26 23:30 | NUR ---
{null, Consent obtained for lap randell poss open randell and placed on chart at this time. patient aware of npo status after midnight. }
[2020-02-27] VITALS (8 sets, daily range): BP systolic 126–159; BP diastolic 71–91
[2020-02-27] MEDS: PIPER-TAZ 3.375 GM 50 ML IV SCH ×3 (05:18→18:02)
[2020-02-27] MEDS: PANTOPRAZOLE 40 MG 10ML VIAL IV SCH ×2 (05:18→16:45)
[2020-02-27 06:05] LABS: BASOPHILS # (AUTO) 0.1 (0.0-0.1); BASOPHILS % 0.5 % (0.0-1.0); EOSINOPHILS # (AUTO) 0.2 (0.0-0.4); EOSINOPHILS % 1.6 % (0.0-6.0); HEMATOCRIT 41.6 % (38.2-49.6); HEMOGLOBIN 14.2 g/dL (14.0-18.0); LYMPHOCYTES % 27.8 % (18.0-39.1); MEAN CORPUSCULAR HEMOGLOBIN 26.9 pg (28-32); MEAN CORPUSCULAR HGB CONC 34.1 g/dL (31-35); MEAN CORPUSCULAR VOLUME 78.9 fL (81-99); MONOCYTES # (AUTO) 1.9 (0.2-0.8); MONOCYTES % 13.3 % (4.4-11.3); NEUTROPHILS % 56.2 % (38.7-80.0); PLATELET COUNT 506 x10e3/uL (140-360); RED BLOOD COUNT 5.27 x10e6/uL (4.3-5.7); RED CELL DISTRIBUTION WIDTH 23.2 % (11.7-14.4)
[2020-02-27 06:39] LABS: ALBUMIN 2.8 g/dL (3.5-5.0); ALBUMIN/GLOBULIN RATIO 1.1 (0.8-2.0); CALCIUM 8.4 mg/dL (8.4-10.2); CREATININE, SERUM 1.38 mg/dL (0.72-1.25)
[2020-02-27] MEDS: SODIUM CHLORIDE 0.9% 1000ML 1,000 ML IV SCH ×2 (06:57→23:30)
--- NOTE | 2020-02-27 07:30 | NUR ---
{null, PT IN BED SLEEPING NO S/S DISCOMFORT }
[2020-02-27] MEDS: NICOTINE 21 MG/EA PATCH TOP SCH (09:00)
[2020-02-27] MEDS: LACTOBACILLUS ACIDOPHILUS CAPSULE PO SCH ×2 (09:00→16:45)
--- NOTE | 2020-02-27 09:43 | NUR ---
{null, GAVE PACKET OF INFORMATION WITH [employer] FOR ASSISTANCE WITH LOW TO NO INCOME TO PATIENT. RESOURCES THAT PATIENT MAY BE ABLE TO FOLLOW UP UPON DISCHARGE. PT EDUCATED ON EACH RESOURCE AND UNDERSTANDING HOW TO FOLLOW UP TO SEE IF QUALIFIED FOR EACH RESOURCE. }
[2020-02-27] MEDS ORDERED: BUPIVACAINE HCL 0.5% INJ 30 ML VIAL INJ ONE (12:33)
[2020-02-27 12:49] LABS: EOSINOPHILS % (MANUAL) 1 % (0-7); LYMPHOCYTES % (MANUAL) 17 % (19-48); MONOCYTES % (MANUAL) 6 % (3.4-9.0); NEUTROPHILS % (MANUAL) 56 % (40-74)
[2020-02-27 12:50] LABS: ANISOCYTOSIS MODERATE
[2020-02-27 12:51] LABS: HYPOCHROMASIA SLIGHT; OVALOCYTES FEW; PLATELET ESTIMATE SLIGHTLY INCREASED; PLATELET MORPHOLOGY COMMENT NORMAL; RBC MORPHOLOGY COMMENT ABNORMAL; TARGET CELLS FEW
[2020-02-27] MEDS ORDERED: SUGAMMADEX SODIUM 200 MG/2 ML VIAL IV ONE (13:12)
[2020-02-27] MEDS ORDERED: HYDROMORPHONE 2MG/ML 2 MG/ML ML ONE (13:36)
[2020-02-27] MEDS ORDERED: LIDOCAINE HCL 2% LOCAL INJ 5 ML SDV VIAL INJ ONE (14:11)
[2020-02-27] MEDS ORDERED: ONDANSETRON HCL INJ 2MG/ML 2ML 2 MG/ML VIAL ONE (14:11)
[2020-02-27] MEDS ORDERED: DEXAMETHASONE SOD PHOS INJ 4 MG/ML VIAL ONE (14:11)
[2020-02-27] MEDS ORDERED: PROPOFOL IV EMULSION 10 MG/ML 20 ML VIAL ONE (14:11)
[2020-02-27] MEDS ORDERED: SEVOFLURANE INHAL SOLN 250 ML PEN BTL ONE (14:11)
--- NOTE | 2020-02-27 14:13 | NUR ---
{null, RECD PT FROM OR VIA BED NO DISTRESS NOTED C/O PAIN LEVEL 4 MEDICATED IN PACU }
[2020-02-27] MEDS: MORPHINE SULFATE INJ 4 MG/ML INJ 1ML IV PRN ×2 (16:18→21:20)
--- NOTE | 2020-02-27 18:03 | NUR ---
{null, PT UP AMBULATING IN GIANG,DENIES PAIN }
--- NOTE | 2020-02-27 19:04 | Progress Note ---
DATE: 02/27/2020 CONSULTANTS: 1. Dr. Henry with Hematology. 2. Dr. Kirby with GI. 3. Dr. Mahoney with Surgery. CHIEF COMPLAINT: Abdominal pain with recurrent diarrhea. SUBJECTIVE: The patient is seen in the room, sitting up in a chair, status post lap randell this morning. He reports abdominal pain is mildly improved, he denies any chest pain, shortness of breath, nausea, vomiting, fever. He reports diarrhea has resolved. PHYSICAL EXAMINATION: VITAL SIGNS: Temperature 97.1, pulse is 91, respirations 12, blood pressure 154/91, pulse ox is 100% on room air. GENERAL: No acute distress. HEENT: Normocephalic, atraumatic. LUNGS: Clear to auscultation. CARDIOVASCULAR: Regular rate and rhythm. GI: Soft with generalized tenderness. Surgical site intact. NEUROLOGIC: Alert, awake, and oriented x3. MUSCULOSKELETAL: Moves all extremities. No edema. SKIN: Dry. PSYCH: Calm. LABORATORY DATA: WBC 14.19, hemoglobin 14.2, platelet 506. Sodium 141, potassium 4.0, CO2 23, BUN is 9, creatinine 1.38. Estimated GFR is 57. Lactic acid 1.0, total bilirubin 1.1, AST 35, ALT 55, CK 301, albumin 2.8. IMPRESSION: 1. Left upper quadrant abdominal pain associated with diarrhea. Stool for Clostridium difficile was negative. GI was consulted, status post esophagogastroduodenoscopy, which showed some polyps. Continue on PPI and Zosyn. 2. Chronic cholecystitis and dyskinesia. General surgeon consulted. Status post laparoscopic cholecystectomy today. 3. Acute kidney injury. Continue IV fluid hydration, now resolved. 4. History of polycythemia. WBC and stable. Status post splenectomy. Hematology has been consulted, status post phlebotomy. 5. Mild rhabdo. CK is trending down to 301. Continue IV fluid hydration. 6. Elevated LFTs and bilirubin. Likely due to chronic cholecystitis. Status post lap randell. We will continue to monitor. 7. Tobacco abuse. Discussed smoking cessation. Nicotine patch p.r.n. 8. Deep vein thrombosis prophylaxis. We will hold Lovenox due to surgery today. PLAN: To continue current treatment, pain management as needed, advance diet and monitor overnight. Anticipate discharge home tomorrow if continues to improve. Dictated by Diana Mehta, ANP MD NICOLE Burris/ERASMO /[id number]
--- NOTE | 2020-02-27 19:20 | NUR ---
{null, Received patient awake, not in distress, call light within easy reach. Lap sites x 4 roni intact, no drainage noted. Will continue to monitor patient. }
--- NOTE | 2020-02-27 20:15 | Operative Report ---
DATE OF PROCEDURE: 02/27/2020 SURGEON: German Mahoney MD PREOPERATIVE DIAGNOSIS: Chronic cholecystitis. POSTOPERATIVE DIAGNOSIS: Chronic cholecystitis. PROCEDURE: Diagnostic laparoscopy, laparoscopic cholecystectomy. TRACK SERVICE PERSON: None. ANESTHESIA: General. INDICATIONS AND FINDINGS: The patient is a 44-year-old male, admitted with complaints of epigastric abdominal pain. Workup revealed abnormal HIDA scan with very low ejection fraction. The patient has gallbladder with some adhesions involving the omentum over the neck of the gallbladder. Cystic duct was about 2 mm in diameter. Common bile duct was about 6 mm in diameter. Liver had some adhesions around it, otherwise was normal, lower abdomen appeared normal. There were adhesions in the upper midline involving the omentum. TECHNIQUE: After adequate general endotracheal anesthesia, the patient is in supine position, the abdomen was prepped and draped in sterile fashion with ChloraPrep solution just to the right of the umbilicus. Skin and subcutaneous tissues infiltrated with 0.5% Marcaine. Transverse incision made. Abdominal wall was elevated and Veress needle was introduced. Pneumoperitoneum was then created. A 10 mm trocar and cannula was then passed through this wound. Laparoscopic camera was introduced. Initial laparoscopy revealed some adhesions in the upper midline involving omentum. The liver had adhesions around it also. Gallbladder was mildly distended. Bowel that was seen all appeared normal. A 10 mm trocar and cannula were placed in the epigastrium. Two 5 mm trocars and cannulas were placed in the right upper quadrant. These were placed under direct vision. Fundus of the gallbladder was grasped, retracted superiorly. There were some adhesions over the neck of the gallbladder, which were lysed. The neck of the gallbladder was then grasped, retracted laterally. Peritoneum over the neck of the gallbladder was incised. The gallbladder cystic duct junction was dissected free. The cystic artery was also dissected free. The neck of the gallbladder completely dissected free. The cystic artery was divided between hemoclips close to the gallbladder. Cystic duct was also divided between hemoclips with three clips being left on the common bile duct. The gallbladder was dissected free from the liver using scissors and electrocautery. Once it was entirely free, it was placed into an Endopouch and brought through the epigastric cannula. There were no stones definitely palpable. Gallbladder bed was inspected for hemostasis, which was seen to be adequate. It was irrigated with saline. All fluid aspirated and inspected for hemostasis, which was seen to be adequate. Instruments and cannulas were removed. Pneumoperitoneum was evacuated. Wounds were then closed, fascia in the umbilical and epigastric wound closed with 0 Vicryl. Skin to all wounds closed with roni. Sterile dressings applied to each wound. The patient tolerated the procedure well. Estimated blood loss was 10 mL. There were no complications. All counts were correct. The patient was taken to the recovery room in satisfactory condition. MD KINGSLEY Downey/ERASMO /[id number]
[2020-02-27] MEDS: ONDANSETRON HCL INJ 2MG/ML 2ML 2 MG/ML VIAL IV PRN (21:20)
[2020-02-28] VITALS: BP 143/83
[2020-02-28] MEDS: PIPER-TAZ 3.375 GM 50 ML IV SCH ×3 (00:01→11:13)
[2020-02-28] MEDS: ONDANSETRON HCL INJ 2MG/ML 2ML 2 MG/ML VIAL IV PRN ×2 (01:35→05:38)
[2020-02-28] MEDS: MORPHINE SULFATE INJ 4 MG/ML INJ 1ML IV PRN ×2 (01:35→05:38)
[2020-02-28 04:00] VITALS: BP 116/69
[2020-02-28] MEDS: SODIUM CHLORIDE 0.9% 1000ML 1,000 ML IV SCH (04:09)
[2020-02-28] MEDS: PANTOPRAZOLE 40 MG 10ML VIAL IV SCH (05:38)
--- NOTE | 2020-02-28 06:40 | NUR ---
{null, RECEIVED BEDSIDE SHIFT REPORT FROM OFF GOING NURSE. PATIENT IS RESTING IN BED. NO S/S OF DISTRESS NOTED. CALL LIGHT WITHIN REACH. BED IN THE LOWEST POSITION. }
--- NOTE | 2020-02-28 07:30 | NUR ---
{null, walking rounds done by stacy RN, call light within easy reach }
[2020-02-28 07:58] VITALS: BP 128/88
[2020-02-28 08:04] VITALS: BP 128/88
[2020-02-28] MEDS: LACTOBACILLUS ACIDOPHILUS CAPSULE PO SCH (09:07)
[2020-02-28] MEDS: NICOTINE 21 MG/EA PATCH TOP SCH (09:07)
[2020-02-28] MEDS: HYDROCODONE/APAP 5MG-325MG TAB PO PRN ×2 (09:12→14:14)
[2020-02-28 11:40] VITALS: BP 139/87
--- NOTE | 2020-02-28 14:30 | NUR ---
{null, PER DR. FLETCHER, PATIENT IS CLEAR FOR DISCHARGE. HE MAY SHOWER. FOLLOW UP IN 1 WEEK. }
[2020-02-28] MEDS ORDERED: TYLENOL # 31 EA PO (15:01)
--- NOTE | 2020-02-28 15:48 | NUR ---
{null, RECEIVED DC ORDER FROM HORTENCIA LITTLE. PATIENT IS IN STABLE CONDITION. IV LINE TO LEFT FOREARM DISCONTINUED WITH TIP INTACT, PRESSURE APPLIED TO SITE, NO BLEEDING NOTED. DISCHARGE TEACHING PROVIDED TO PATIENT, HE VERBALIZED UNDERSTANDING. DISCHARGE FOLDER WITH PAPERWORK AND PRESCRIPTIONS ON HAND. ALL PERSONAL ITEMS ON HAND. PATIENT ACCOMPANIED TO TAXI BY STAFF. }
--- NOTE | 2020-02-29 03:11 | Discharge Summary ---
PRIMARY CARE PHYSICIAN: None. FINAL DISCHARGE DIAGNOSES: 1. Chronic cholecystitis and dyskinesia. 2. Recurrent diarrhea with left quadrant abdominal pain. 3. Acute kidney injury. 4. History of polycythemia. 5. Mild rhabdomyolysis. 6. Elevated LFTs and bilirubin. 7. Tobacco abuse. CONSULTANTS: 1. Dr. Henry with Hematology. 2. Dr. Kirby with GI. 3. Dr. Mahoney with Surgery. PROCEDURES: Status post EGD and status post lap cholecystectomy. HISTORY: Per HPI. HOSPITAL COURSE: This is a 44-year-old male, who presented to the ER with complaints of abdominal pain and recurrent diarrhea. Stool was negative for C. diff. GI was consulted and EGD was done, which showed some polyps. LFTs and bilirubin were elevated. HIDA scan showed chronic cholecystitis and dyskinesia. Surgical team was consulted and underwent lap cholecystectomy. He also underwent phlebotomy for his polycythemia. WBC was elevated at 20, but improved to 14. He is afebrile, abdominal pain is improved. Tolerating diet and diarrhea improved. We will discharge home to follow up with surgeon, PCP, and Hematology. PHYSICAL EXAMINATION: VITAL SIGNS: Temperature 98.0, pulse is 92, respirations 20, blood pressure 139/87, pulse ox is 97% on room air. GENERAL: No acute distress. CARDIOVASCULAR: Regular rate and rhythm. LUNGS: Clear to auscultation. ABDOMEN: Soft and mild tenderness to palpation. NEUROLOGIC: Alert, awake, and oriented x3. MUSCULOSKELETAL: Moves all extremities. CONDITION AT DISCHARGE: Stable and improved. DISCHARGE MEDICATIONS: Please see medication reconciliation list. FOLLOWUP: Follow up with PCP, Hematology, and Surgical team in 1 to 2 weeks. TIME SPENT: Total discharge time is 32 minutes. Dictated by SHEELA Kunz Lawanda Moraes MD MY/MODL /[id number]
== END 2020-02-28 15:48 | disposition home or self-care (01) | DRG 418 ==
LOC: ER 02:00 → ERHOLD 06:44 → MED/SURG3 14:55 → OBSVTOIN 02-26 08:15
PROVIDERS: ADMIT Internal Medicine; ATTEND Internal Medicine
PROC: 0DB68ZX Excision of Stomach, Via Natural or Artificial Opening Endoscopic, Diagnostic (ICD-10-PCS; 2020-02-26)
PROC: 0FT44ZZ Resection of Gallbladder, Percutaneous Endoscopic Approach (ICD-10-PCS; principal; 2020-02-27 12:30)
DX: K81.1 Chronic cholecystitis (principal); N17.9 Acute kidney failure, unspecified; M62.82 Rhabdomyolysis; D45 Polycythemia vera; K21.9 Gastro-esophageal reflux disease without esophagitis; R79.89 Other specified abnormal findings of blood chemistry; Z90.81 Acquired absence of spleen; Z88.8 Allergy status to other drugs, medicaments and biological substances; Z91.041 Radiographic dye allergy status; K82.8 Other specified diseases of gallbladder; K20.9 Esophagitis, unspecified; K29.70 Gastritis, unspecified, without bleeding; Z11.59 Encounter for screening for other viral diseases; Z72.0 Tobacco use; R19.7 Diarrhea, unspecified
CPT/HCPCS: 36415; 43239; 74177; 78227; 80053; 81001; 82150; 82270; 82550; 82553; 83605; 83630; 83690; 83880; 84484; 85025; 87040; 87045; 87177; 87493; 87635; 88304; 88305; 88312; 93005; 96361; 99284; A9537; G0378; J1100; J1650; J2001; J2270; J2405; J2543; J7030; Q9967

== ENCOUNTER 2020-07-31 15:58 | Emergency (ER) | payer OTHER ==
[~2020-07-31] VITALS: Ht 170.2 cm; Wt 88.5 kg
[~2020-07-31 15:58] MED LIST: NEXIUM20 MG PO; TYLENOL # 31 EA PO
[2020-07-31] MEDS ORDERED: FENTANYL CITRATE/PF 100MCG/2 ML INJ IV ONE (16:45)
--- NOTE | 2020-07-31 16:57 | Emergency Department Note ---
History of Present Illnes History of Present Illness Chief Complaint: Eye, Ear, Nose, Throat, Dental History of Present Illness This is a 44 year old male Chief Complaint Comment PT CAME IN VIA POV FOR C/O EXCESSIVE BLEEDING S/P DENTAL SURGERY, PT STATES THAT HE HAD A TOOTH EXTRACTION TODAY AND HAS NOT STOPPED BLEEDING SINCE, PT STATES THAT HE WAS ADVISED BY HIS DENTIST TO COME TO THE ED,DENIES ANY OTHER COMPLAINTS Historian: Patient Arrival Mode: Car Pick Pulling Machine Tender Required: No Onset (how long ago): hour(s) (1) Location: R lower molars Quality: Bleeding Severity: moderate Onset quality: sudden Duration (how long): hour(s) Timing of current episode: constant Progression: unchanged Chronicity: new Context: Denies recent illness, Denies recent surgery Relieving factors: none Exacerbating factors: none Associated symptoms: Reports denies other symptoms Treatments prior to arrival: none Past Medical/Family History Physician Review I have reviewed the patient's past medical and family history. Any updates have been documented here. Past Medical History Recent Fever: No Clinical Suspicion of Infectio: No New/Unexplained Change in Ment: No Past Medical History: GERD Other Medical History: POLYCYTHEMIA Past Surgical History: T&A Other Surgery: DENTAL EXTRACTION 07/31/2020 Review of Systems Review of Systems Constitutional: Reports no symptoms EENTM: Reports as per HPI Cardiovascular: Reports no symptoms Respiratory: Reports no symptoms Gastrointestinal: Reports no symptoms Genitourinary: Reports no symptoms Musculoskeletal: Reports no symptoms Integumentary: Reports no symptoms Neurological: Reports no symptoms Psychological: Reports no symptoms Endocrine: Reports no symptoms Hematological/Lymphatic: Reports no symptoms Physical Exam Related Data Allergies: Coded Allergies: iodine (Verified Allergy, Severe, 02/02/20) cephalexin (Verified Allergy, Unknown, 02/24/20) Triage Vital Signs Vital Signs Date Time Temp Pulse Resp B/P (MAP) Pulse Ox O2 Delivery O2 Flow Rate FiO2 07/31/20 16:27 98.1 100 18 157/83 100 Room Air Vital signs reviewed: Yes Physical Exam CONSTITUTIONAL Constitutional: Present well-developed, Present well-nourished HENT HENT: Present normocephalic, Present atraumatic, Present oropharynx clear/moist, Present nose normal, Present other (Mild bleeding to R lowe molars) HENT L/R: Present left ext ear normal, Present right ext ear normal EYES Eyes: Reports PERRL, Reports conjunctivae normal NECK Neck: Present ROM normal PULMONARY Pulmonary: Present effort normal, Present breath sounds normal CARDIOVASCULAR Cardiovascular: Present regular rhythm, Present heart sounds normal, Present capillary refill normal, Present normal rate GASTROINTESTINAL Abdominal: Present soft, Present nontender, Present bowel sounds normal GENITOURINARY Genitourinary: Present exam deferred SKIN Skin: Present warm, Present dry MUSCULOSKELETAL Musculoskeletal: Present ROM normal NEUROLOGICAL Neurological: Present alert, Present oriented x 3, Present no gross motor or sensory deficits PSYCHOLOGICAL Psychological: Present mood/affect normal, Present judgement normal Assessment & Plan Medical Decision Making MDM Exam shows removed molard to R lower mandible with mild active bleeding. Bleeding was stopped with TXA soaked gauze. Will have him follow up with dentist for further recs. Appropriate for DC. Reassessment Reassessment time: 17:44 Reassessment Well appearing, NAD, bleeding controlled Assessment & Plan Final Impression: (1) Surgical wound hemorrhage after dental procedure Depart Disposition: HOME, SELF-CARE Last Vital Signs Date Time Temp Pulse Resp B/P (MAP) Pulse Ox O2 Delivery O2 Flow Rate FiO2 07/31/20 16:27 98.1 100 18 157/83 100 Room Air Home Meds Active Scripts Acetaminophen/Codeine* (TYLENOL # 3*) 1 Ea Tab, 1 TAB PO Q6H PRN for pain, #10 Prov:SIDNEY JAQUEZ CAR MECHANIC HELPER 02/28/20 Reported Medications Esomeprazole Magnesium (NEXIUM) 20 Mg Capsule.dr, 20 MG PO DAILY, CAP PROTONIX THERAPEUTIC INTERCHANGE PER [facility] 02/24/20 Medications in the ED Fentanyl Citrate 50 mcg ONCE ONCE IV ; Start 07/31/20 at 16:45; Stop 07/31/20 at 16:46 Tranexamic Acid 1,000 mg ONCE ONCE INJ ; Start 07/31/20 at 17:00; Stop 07/31/20 at 17:01 SHILPA HOLLOWAY MD Jul 31, 2020 16:57
[2020-07-31] MEDS ORDERED: TRANEXAMIC ACID 1,000 MG/10 ML ML INJ ONE (17:00)
[2020-07-31 17:26] LABS: BASOPHILS # (AUTO) 0.1 (0.0-0.1); BASOPHILS % 0.5 % (0.0-1.0); EOSINOPHILS # (AUTO) 0.1 (0.0-0.4); EOSINOPHILS % 0.7 % (0.0-6.0); HEMATOCRIT 48.9 % (38.2-49.6); HEMOGLOBIN 16.3 g/dL (14.0-18.0); LYMPHOCYTES # (AUTO) 3.3 (1.0-3.2); LYMPHOCYTES % 15.8 % (18.0-39.1); MEAN CORPUSCULAR HEMOGLOBIN 27.6 pg (28-32); MEAN CORPUSCULAR HGB CONC 33.3 g/dL (31-35); MEAN CORPUSCULAR VOLUME 82.9 fL (81-99); MONOCYTES # (AUTO) 1.6 (0.2-0.8); MONOCYTES % 7.8 % (4.4-11.3); NEUTROPHILS # (AUTO) 15.5 (2.1-6.9); NEUTROPHILS % 74.4 % (38.7-80.0); PLATELET COUNT 686 x10e3/uL (140-360); RED CELL DISTRIBUTION WIDTH 19.6 % (11.7-14.4)
[2020-07-31 17:37] LABS: INR 0.93; PROTHROMBIN TIME 12.9 seconds (11.9-14.5)
[2020-07-31 17:47] LABS: ALANINE AMINOTRANSFERASE 88 IU/L (0-55); ALBUMIN 3.5 g/dL (3.5-5.0); ALKALINE PHOSPHATASE 64 IU/L (40-150); ANION GAP 15.2 mmol/L (8-16); BLOOD UREA NITROGEN 14 mg/dL (7-26); BUN/CREATININE RATIO 12 (6-25); CALCIUM 8.9 mg/dL (8.4-10.2); CARBON DIOXIDE 23 mmol/L (22-29); CHLORIDE 104 mmol/L (98-107); EST GLOMERULAR FILTRATION RATE > 60 ML/MIN (60-); GLUCOSE 89 mg/dL (74-118); POTASSIUM 4.2 mmol/L (3.5-5.1); SODIUM 138 mmol/L (136-145)
--- NOTE | 2020-07-31 18:53 | NUR ---
NO ACTIVE BLEEDING NOTED
--- OUTSIDE RECORDS SUMMARY | 2020-07-31 19:14 | XMS REPORT | Clinical Summary ---
Author Author [facility] Address Unknown Phone Unavailable Care Team Providers Care Marine Engineer Cpvec Name Role Phone PCP Unavailable Allergies Not on File Medications Not on file Active Problems Not on file Social History Date Tobacco Use Types Packs/Day Years Used Never Assessed Sex Assigned at Date Recorded Not on file Last Filed Vital Signs Not on file Plan of Treatment Not on file Results Not on fileafter 07/31/2019 Insurance Type Payer Benefit Subscriber ID Effective Phone Address Plan / Dates Group PPO BLUE CROSS/BLUE SHIELD BCBS PPO [id number] 2016-P [address] EPO resent [id number] [place] [address]
--- OUTSIDE RECORDS SUMMARY | 2020-07-31 19:15 | XMS REPORT | Continuity of Care Document ---
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 03/23/2018 [facility] LEFT SIDE PNEUMONIA, DEHYDRATION, POLYCT Active 12/07/2017 [facility] HYPOTENSION, INTRAPERITONEAL HEMATOMA Active 12/07/2017 [facility] Pneumonia, unspecified organism 03/23/2018 [facility] Other shock 03/23/2018 [facility] Acute respiratory failure with hypoxia 03/23/2018 [facility] Hemoperitoneum 03/23/2018 [facility] Acute kidney failure, unspecified 03/23/2018 [facility] Acute posthemorrhagic anemia 03/23/2018 [facility] Coagulation defect, unspecified 03/23/2018 [facility] Hyperkalemia 03/23/2018 [facility] Fluid overload, unspecified 03/23/2018 [facility] Nicotine dependence, cigarettes, uncomplicated 03/23/2018 [facility] PNEUMONIA, UNSPECIFIED ORGANISM Active [facility] DEHYDRATION Active [facility] HYPOTENSION, UNSPECIFIED Active [facility] HEMOPERITONEUM Active [facility] CUTANEOUS ABSCESS OF LIMB, UNSPECIFIED Active [facility] Medications Medication Details Route Status Patient Instructions Ordering Provider Order Date Source Acetaminophen 500 MG Oral Tablet 1,000 mg = 2 tab, PO, Q6H, X 14 day, # 112 tab, 0 Refill(s) Active 06/14/2019 [facility] nt Docusate Sodium 50 MG / sennosides, [facility] 8.6 MG Oral Tablet 1 tab, PO, BID, X 14 day, # 28 tab, 0 Refill(s) Active 06/14/2019 [facility] nter gabapentin 300 MG Oral Capsule 300 mg = 1 cap, PO, Q8H, # 42 cap, 0 Refill(s) Active 06/14/2019 [facility] methocarbamol 750 mg oral tablet 750 mg = 1 tab, PO, TID, X 7 day, # 21 tab, 0 Refill(s) Active 06/14/2019 [facility] nt pantoprazole 40 mg oral enteric coated tablet 40 mg = 1 tab, PO, Before Breakfast, # 14 tab, 0 Refill(s) Active 06/14/2019 [facility] nter Sulfamethoxazole 800 MG / Trimethoprim 1 60 MG Oral Tablet [Bactrim] 1 tab, PO, [id number], X 6 day, # 12 tab, 0 Refill(s) Active 06/14/2019 [facility] tramadol hydrochloride 50 MG Oral Tablet 100 mg = 2 tab, PO, Q6H, PRN Pain Score 4-6, X 3 day, # 24 tab, 0 Refill(s) Active 06/14/2019 [facility] Sulfamethoxazole 800 MG / Trimethoprim 1 60 MG Oral Tablet [Bactrim] Notes: One DS tablet = trimethoprim 160m g + sulfamethoxazole 800 mg Dose based on trimethoprim component On empty stomach with a glass of water. (Same As: Bactrim DS, Septra DS) No Longer Active 06/13/2019 [facility] nter vancomycin + Sodium Chloride 0.9% IV 250 mL 2001 mg: infuse over 2.5 hours For adult patients only: Round to nearest 250 mg per Medical Staff approval MEDICATION WASTE Product Size: 1000 mg Product Wasted: ___ mg No Longer Active 06/12/2019 [facility] nter Vancomycin 1.25 gm, Route: IVP B, Drug form: INJ, [id number], Dosing Weight 90.909, kg, Priority: Within 4 hours, Start date: 06/12/19 15:00:00 CDT, Duration: 1 day, Stop date: 06/13/19 7:00:00 CDT, ABX Indication: Skin/Soft Tissue Infection Inactive 06/12/2019 [facility] nter Sulfamethoxazole 800 MG / Trimethoprim 1 60 MG Oral Tablet [Bactrim] Notes: One DS tablet = trimethoprim 160m g + sulfamethoxazole 800 mg Dose based on trimethoprim component On empty stomach with a glass of water. (Same As: Bactrim DS, Septra DS) Inactive 06/12/2019 [facility] nter Robaxin Notes: (Same as:Robaxi n) No Longer Active 06/12/2019 [facility] Tetrahydrocannabinol Notes: (S lynn as: Marinol) No Longer Active 06/12/2019 [facility] Dilaudid 0.5 mg, Route: IVP, O NCE, Dosing Weight 90.909, kg, Priority: STAT, Start date: 06/11/19 14:40:00 CDT, Stop date: 06/11/19 14:40:00 CDT Inactive 06/11/2019 [facility] gabapentin 300 MG Oral Capsule Notes: (Same as: Neurontin) No Longer Active 06/11/2019 [facility] Acetaminophen Notes: Infuse ov er 15 minutes Do not exceed 4gm/day of acetaminophen MEDICATION WASTE Product Size: 1000 mg Product Wasted: ___ mg Inactive 06/11/2019 [facility] nt Morphine Notes: (Same as:MORPh ine Sulfate) Inactive 06/11/2019 [facility] hydromorphone (ANES) + sodium chloride (ANES) 9 mL Route: IV, Drug form: INJ, ONCE, Stop date: 06/10/19 18:30:00 CDT Inactive 06/10/2019 [facility] lidocaine (ANES) Route: IV, Dr ug form: INJ, ONCE, Stop date: 06/10/19 18:24:00 CDT Inactive 06/10/2019 [facility] nter propofol (ANES) Route: IV, Brian g form: INJ, ONCE, Stop date: 06/10/19 18:24:00 CDT Inactive 06/10/2019 [facility] nter rocuronium (ANES) Route: IV, D rug form: INJ, ONCE, Stop date: 06/10/19 18:24:00 CDT Inactive 06/10/2019 [facility] nter succinylcholine (ANES) Route: IV, Drug form: INJ, ONCE, Stop date: 06/10/19 18:24:00 CDT Inactive 06/10/2019 [facility] nter fentaNYL (ANES) Route: IV, Brian g form: INJ, ONCE, Stop date: 06/10/19 18:24:00 CDT Inactive 06/10/2019 [facility] nter Hydralazine 10 mg, Route: IVP, Q20Min, Dosing Weight 90.909, kg, PRN Elevated BP, Start date: 06/10/19 18:16:00 CDT, Duration: 2 doses or times, Stop date: Limited # of times Inactive 06/10/2019 [facility] nter Labetalol 10 mg, Route: IVP, Q 5Min, Dosing Weight 90.909, kg, PRN Elevated BP, Start date: 06/10/19 18:16:00 CDT, Duration: 5 doses or times, Stop date: Limited # of times Inactive 06/10/2019 [facility] nter Oxycodone Hydrochloride 5 MG Oral Tablet 5 mg, Route: PO, Drug form: TAB, Q4H, Dosing Weight 90.909, kg, PRN Pain Score 4-6, Start date: 06/10/19 18:16:00 CDT, Duration: 30 day, Stop date: 07/10/19 18:15:00 CDT Inactive 06/10/2019 [facility] Hydromorphone 0.5 mg, Route: I LUMBER HANDLER, Q5Min, Dosing Weight 90.909, kg, PRN Pain Score 7-10, Start date: 06/10/19 18:16:00 CDT, Duration: 4 doses or times, Stop date: Limited # of times Inactive 06/10/2019 [facility] nter Flumazenil 0.2 mg, Route: IVP, PRN, Dosing Weight 90.909, kg, PRN Benzodiazepine Reversal, Initial dose, Start date: 06/10/19 18:16:00 CDT, Duration: 30 day, Stop date: 07/10/19 18:15:00 CDT Inactive 06/10/2019 [facility] Naloxone 0.4 mg, Route: IVP, Q 2MIN, Dosing Weight 90.909, kg, PRN Narcotic Reversal, Start date: 06/10/19 18:16:00 CDT, Duration: 8 doses or times, Stop date: Limited # of times Inactive 06/10/2019 [facility] nter Ondansetron 4 mg, Route: IVP, ONCE, Dosing Weight 90.909, kg, PRN Nausea & Vomiting, Start date: 06/10/19 18:16:00 CDT Inactive 06/10/2019 [facility] midazolam (ANES) Route: IV, Dr fuentes form: SOLN, ONCE, Stop date: 06/10/19 17:44:00 CDT Inactive 06/10/2019 [facility] nter Lactated Ringers Injection IV (ANES) 1000 mL Route: IV, Total Volume: 1,000, Start date: 06/10/19 17:12:00 CDT, Stop date: 06/10/19 18:12:00 CDT Inactive 06/10/2019 [facility] remove patch Notes: Remove pat ch 12 hours after application each day. No Longe r Active 06/10/2019 [facility] nter Acetaminophen 300 MG / Codeine Phosphate 30 MG Oral Tablet 1 tab, PO, Q6H, PRN pain, # 20 tab, 0 Refill(s) No Longer Active 06/10/2019 [facility] vancomycin 2001 mg: infuse ov er 2.5 hours For adult patients only: Round to nearest 250 mg per Medical Staff approval MEDICATION WASTE Product Size: 1000 mg Product Wasted: ___ mg Inactive 06/10/2019 [facility] Ondansetron 2 MG/ML Injectable Solution [Zofran] Notes: (Same as: Zofran) MEDICATION WASTE Product Size: 4 mg Product Wasted: ___ mg Inactive 06/10/2019 [facility] Nicotine Notes: (Same as: Mercedes gates) "Remove old patch before application of new patch" WASTE: F/P - P Waste Black; E - P Waste Black No Longer Active 06/10/2019 [facility] remove patch Notes: Remove old patch before application of new patch. WASTE: F/P - P Waste Black; E - P Waste Black No Longer Active 06/10/2019 [facility] Docusate Sodium 50 MG / sennosides, [facility] 8.6 MG Oral Tablet Notes: (Same as Senokot-S) Equiv. to Isis-Colace. No Longer Active 06/10/2019 [facility] meropenem Notes: (Same as: Chanda rem) . MEDICATION WASTE Product Size: 1000 mg Product Wasted: ___ mg No Longer Active 06/10/2019 [facility] pantoprazole Notes: Tablet china uld not be chewed or crushed. (Same as: Protonix) N o Longer Active 06/10/2019 [facility] nter Tylenol Notes: Max acetaminoph en 4000 mg/day (4 gm/day). (Same as: Tylenol Extra Strength) No Longer Active 06/10/2019 [facility] nter Tramadol 50 mg, Route: PO, Brian g form: TAB, Q6H, Dosing Weight 90.909, kg, Start date: 06/10/19 6:00:00 CDT, Duration: 30 day, Stop date: 07/10/19 0:00:00 CDT Inactive 06/10/2019 [facility] nter Lidocaine Hydrochloride 0.05 MG/MG Trans dermal Patch [Lidoderm] Notes: Apply only once for up to 12 hour s in a 24-hour period (12 hours on and 12 hours off). (Same as: Lidoderm) "Remove old patch before application of new patch" No Longer Active 06/10/2019 [facility] Vancomycin 2001 mg: infuse ov er 2.5 hours Inactive 06/10/2019 [facility] heparin Notes: porcine heparin No Longer Active 06/10/2019 [facility] heparin sodium, porcine 2500 UNT/ML Injectable Solutio n Notes: porcine heparin Inactiv e 06/10/2019 [facility] Tramadol Notes: Not to exceed 400mg/day. (Same As: Ultram) No Longer Active 06/10/2019 [facility] Vancomycin 800 mg, Route: IV, ONCE, Dosing Weight 90.909, kg, Start date: 06/10/19 1:20:00 CDT, Stop date: 06/10/19 1:20:00 CDT, ABX Indication: Skin/Soft Tissue Infection Inactive 06/10/2019 [facility] nter Isolyte S PH 7.4 1,000 mL Note s: (Same as: Isolyte S PH 7.4) No Longer Active 06/10/2019 [facility] meropenem Notes: Same as Kelvin valencia MEDICATION WASTE Product Size: 500 mg Product Wasted: _0__ mg Inactive 06/10/2019 [facility] Morphine Notes: (Same as:MORPh ine Sulfate) Inactive 06/10/2019 [facility] ferrous sulfate 325 MG Oral Tablet 325 mg = 1 tab, PO, TID, # 90 tab, 0 Refill(s) Active 12/15/2017 [facility] chlorproMAZINE 25 mg oral tablet 25 mg = 1 tab, PO, BID, # 10 tab, 0 Refill(s) Active 12/15/2017 [facility] ferrous sulfate Notes: Give wi th food. iron elemental [id number] as ferrous sulfate Dose=___mg elemental iron Inactive 12/15/2017 [facility] meningococcal group A polysaccharide / m eningococcal group C polysaccharide / MENINGOCOCCAL POLYSACCHARIDE VACCINE GROUP W-135 / MENINGOCOCCAL POLYSACCHARIDE VACCINE GROUP Y Notes: (Same as: Menomune A/C/Y/W-135) (meningococcal polysaccharide vaccine 0.5ml/dose INJ) WASTE: F/P - Black; E - Municipal Trash Bin No Longer Active 12/14/2017 [facility] Chlorpromazine Notes: (Same As : Thorazine) No Longer Active 12/13/2017 [facility] Haemophilus influenzae type b strain 148 2, capsular polysaccharide inactivated tetanus toxoid conjugate vaccine 0.068 MG/ML Injectable Solution [ActHIB] Notes: (Same as: Act Hib) Haemophilus I nfluenzae Conjugate Vaccine (tetanus toxid conjugate). No Longer Active 12/13/2017 [facility] Chlorpromazine Notes: (Same As : Thorazine) Inactive 12/13/2017 [facility] Protonix 20 mg, Route: PO, Brian g form: ECTAB, Before Dinner, Dosing Weight 84.5, kg, Start date: 12/12/17 16:30:00 CDT, Duration: 30 day, Stop date: 01/10/18 16:30:00 CDT Inactive 12/12/2017 [facility] Miralax Notes: Dissolve in 8 o z of water or juice. (Same as: Miralax) Inactive 12/12/2017 [facility] Baclofen Notes: (Same As: Delvin esal) No Longer Active 12/11/2017 [facility] Zosyn Notes: (Same as: Zosyn) Dosing based on Piperacillin component MEDICATION WASTE Product Size: 3375 mg Product Wasted: ___ mg No Longer Active 12/11/2017 [facility] Lasix Notes: (Same as: Lasix) MEDICATION WASTE Product Size: 40 mg Product Wasted: ___ mg No Longer Active 12/11/2017 [facility] Tramadol Notes: Not to exceed 400mg/day. (Same As: Ultram) No Longer Active 12/10/2017 [facility] Methadone Notes: (Same as: Dol ophine) No Longer Active 12/10/2017 [facility] Acetaminophen Notes: Max aceta minophen 4000 mg/day (4 gm/day). (Same as: Tylenol Extra Strength) Inactive 12/10/2017 [facility] multivitamin Notes: (Same as:Frank de la garza) WASTE: F/P - Black; E - Municipal Trash Bin Take with food. No Longer Active 12/10/2017 [facility] Thiamine 100 mg, Route: PO, Da sheron, Dosing Weight 84.5, kg, Start date: 12/10/17 9:00:00 CDT, Duration: 5 day, Stop date: 12/14/17 9:00:00 CDT No Longer Active 12/10/2017 [facility] Folic Acid Notes: (Same as: Fo lvite) No Longer Active 12/10/2017 [facility] Furosemide 40 mg, Route: IVP, Drug form: INJ, Daily, Dosing Weight 84.5, kg, Start date: 12/10/17 9:00:00 CDT, Duration: 30 day, Stop date: 01/08/18 9:00:00 CDT No Longer Active 12/10/2017 [facility] Lasix 40 mg, Route: IVP, Drug form: INJ, ONCE, Dosing Weight 84.5, kg, Start date: 12/10/17 8:15:00 CDT, Stop date: 12/10/17 8:15:00 CDT Inactive 12/10/2017 [facility] Acetaminophen Notes: Max aceta minophen 4000 mg/day (4 gm/day). (Same as: Tylenol Extra Strength) No Longer Active 12/09/2017 [facility] Furosemide 40 mg, Route: IVP, Drug form: INJ, ONCE, Dosing Weight 84.5, kg, Start date: 12/09/17 17:47:00 CDT, Stop date: 12/09/17 17:47:00 CDT Inactive 12/09/2017 [facility] Furosemide Notes: (Same as: Alexandra mcdowell) MEDICATION WASTE Product Size: 40 mg Product Wasted: ___ mg Inactive 12/09/2017 [facility] Lorazepam Notes: (Same as: Ati van) No Longer Active 12/09/2017 [facility] Vitamin B1 Notes: (Same As: Vi tamin B1) Inactive 12/09/2017 [facility] Protonix Notes: Tablet should not be chewed or crushed. (Same as: Protonix) No Longer Active 12/09/2017 [facility] Lasix Notes: (Same as: Lasix) MEDICATION WASTE Product Size: 40 mg Product Wasted: ___ mg Inactive 12/09/2017 [facility] Acetaminophen 325 MG / Hydrocodone Blanca trate 5 MG Oral Tablet [Roundup 5/325] Notes: (Same as: Roundup 325/5) Do not ex ceed 4gm/day of acetaminophen. No Longer Activ e 12/09/2017 [facility] Robitussin-AC oral syrup Notes : (Same As: Robitussin AC) No Longer Active 12/09/2017 [facility] sennosides, [facility] Notes: (Same a s: Senokot) No Longer Active 12/09/2017 [facility] Docusate Notes: (Same as: Cola ce) (Do Not Crush) No Longer Active 12/09/2017 [facility] Protonix Notes: Tablet should not be chewed or crushed. (Same as: Protonix) Inactive 12/09/2017 [facility] NS (Bolus) IV 500 mL, 500 ml/h r, Infuse Over: 1 hr, Route: IV, 500, Drug form: INJ, ONCE, Priority: STAT, Dosing Weight 84.5 kg, Start date: 12/08/17 17:04:00 CDT, Stop date: 12/08/17 17:04:00 CDT Inactive 12/08/2017 [facility] Zofran Notes: (Same as: Zofran ) MEDICATION WASTE Product Size: 4 mg Product Wasted: ___ mg No Longer Active 12/08/2017 [facility] diphtheria toxoid vaccine, inactivated / Haemophilus capsular oligosaccharide 0.5 ml, Route: IM, Drug Form: SOLN Doscorinne ng Weight 84.5, kg, ONCALL, Within 24 hours, Start date: 12/08/17 14:00:00 CDT, Duration: 1 day, Stop date: 12/09/17 13:59:00 CDT Inactive 12/08/2017 [facility] meningococcal group A polysaccharide / m eningococcal group C polysaccharide / MENINGOCOCCAL POLYSACCHARIDE VACCINE GROUP W-135 / MENINGOCOCCAL POLYSACCHARIDE VACCINE GROUP Y 0.5 ml, Route: SUB-Q, Dosing Weight 84.5, kg, ONCALL, Within 24 hours, Start date: 12/08/17 14:00:00 CDT Inactive 12/08/2017 [facility] pneumococcal capsular polysaccharide typ e 1 vaccine / pneumococcal capsular polysaccharide type 10A vaccine / pneumococcal capsular polysaccharide type 11A vaccine / pneumococcal capsular polysaccharide type 12F vaccine / pneumococcal capsular polysacchar Notes: (Same as: Pneumovax 23) Refrigerate Inactive 12/08/2017 [facility] haemophilus b conjugate (PRP-T) vaccine Notes: (Same as: Act Hib) Haemophilus Influenzae Conjugate Vaccine (tetanus toxid conjugate). No Longer Active 12/08/2017 [facility] acetaminophen Notes: Infuse ov er 15 minutes Do not exceed 4gm/day of acetaminophen MEDICATION WASTE Product Size: 1000 mg Product Wasted: ___ mg No Longer Active 12/08/2017 [facility] pneumococcal 13-valent vaccine intramuscular suspensio n Notes: Shake well prior to use (Same as: Prevnar 13) No Longer Active 12/08/2017 [facility] Ipratropium [place] 0.2 MG/ML Inhalant Solution Notes: SEE RT DOCUMENTATION (Same as:Atrovent) No Longer Active 12/08/2017 [facility] meningococcal group A polysaccharide / m eningococcal group C polysaccharide / MENINGOCOCCAL POLYSACCHARIDE VACCINE GROUP W-135 / MENINGOCOCCAL POLYSACCHARIDE VACCINE GROUP Y Notes: (Same as: Menomune A/C/Y/W-135) (meningococcal polysaccharide vaccine 0.5ml/dose INJ) WASTE: F/P - Black; E - Municipal Trash Bin No Longer Active 12/08/2017 [facility] Haemophilus capsular oligosaccharide 0.0 15 MG/ML / Neisseria meningitidis 0.25 MG/ML Injectable Suspension 0.5 ml, Route: IM, Drug Form: SUSP, Dosing Weight 84.5, kg, ONCALL, Start date: 12/08/17 12:00:00 CDT, Duration: 30 day, Stop date: 01/07/18 11:59:00 CDT Inactive 12/08/2017 [facility] Haemophilus capsular oligosaccharide 0.0 15 MG/ML / Neisseria meningitidis 0.25 MG/ML Injectable Suspension 0.5 ml, Route: IM, Drug Form: SUSP, Dosing Weight 84.5, kg, ONCE, Start date: 12/08/17 11:47:00 CDT, Stop date: 12/08/17 11:47:00 CDT Inactive 12/08/2017 [facility] Tramadol Notes: Not to exceed 400mg/day. (Same As: Ultram) No Longer Active 12/08/2017 [facility] Ketorolac 4 days MEDICA TION WASTE Product Size: 30 mg Product Wasted: ___ mg Inactive 12/08/2017 [facility] celecoxib Notes: NSAID. Please check indication. Not for seizure. (Same As: CeleBREX) N o Longer Active 12/08/2017 [facility] pregabalin Notes: (Same as: Ly richy) No Longer Active 12/08/2017 [facility] Acetaminophen Notes: Infuse ov er 15 minutes Do not exceed 4gm/day of acetaminophen MEDICATION WASTE Product Size: 1000 mg Product Wasted: ___ mg Inactive 12/08/2017 [facility] Methadone Notes: (Same as: Dol ophine) No Longer Active 12/08/2017 [facility] metoprolol (ANES) Route: IV, D rug form: INJ, ONCE, Stop date: 12/08/17 10:08:00 CDT Inactive 12/08/2017 [facility] glycopyrrolate (ANES) Route: I V, Drug form: INJ, ONCE, Stop date: 12/08/17 10:03:00 CDT Inactive 12/08/2017 [facility] neostigmine (ANES) Route: IV, Drug form: INJ, ONCE, Stop date: 12/08/17 10:03:00 CDT Inactive 12/08/2017 [facility] morphine Sulfate (ANES) Route: IV, Drug form: INJ, ONCE, Stop date: 12/08/17 10:03:00 CDT Inactive 12/08/2017 [facility] calcium chloride (ANES) Route: IV, Drug form: INJ, ONCE, Stop date: 12/08/17 9:58:00 CDT Inactive 12/08/2017 [facility] ondansetron (ANES) Route: IV, Drug form: INJ, ONCE, Stop date: 12/08/17 9:53:00 CDT Inactive 12/08/2017 [facility] propofol (ANES) Route: IV, Brian g form: INJ, ONCE, Stop date: 12/08/17 9:43:00 CDT Inactive 12/08/2017 [facility] fentaNYL (ANES) Route: IV, Brian g form: INJ, ONCE, Stop date: 12/08/17 9:43:00 CDT Inactive 12/08/2017 [facility] rocuronium (ANES) Route: IV, D rug form: INJ, ONCE, Stop date: 12/08/17 9:43:00 CDT Inactive 12/08/2017 [facility] Sodium Chloride 0.9% IV (ANES) 500 mL Route: IV, Total Volume: 500, Start date: 12/08/17 9:38:00 CDT, Stop date: 12/08/17 10:38:00 CDT Inactive 12/08/2017 [facility] phenylephrine (ANES) Route: IV , Drug form: INJ, ONCE, Stop date: 12/08/17 9:23:00 CDT Inactive 12/08/2017 [facility] ceFAZolin (ANES) Route: IV, Dr ug form: INJ, ONCE, Stop date: 12/08/17 9:13:00 CDT Inactive 12/08/2017 [facility] potassium chloride (ANES) 40 mEq Route: IV, Drug form: INJ, Start date: 12/08/17 9:11:00 CDT, Stop date: 12/08/17 10:11:00 CDT Inactive 12/08/2017 [facility] Prednisone Notes: Take with fo od. Inactive 12/08/2017 [facility] Budesonide Notes: (Same As: Pu lmicort) No Longer Active 12/08/2017 [facility] Saline Flush 0.9% Notes: (Same as: BD Posiflush) No Longer Active 12/08/2017 [facility] Isolyte S PH 7.4 (ANES) 1000 mL Route: IV, Total Volume: 1,000, Start date: 12/08/17 8:31:00 CDT, Stop date: 12/08/17 9:31:00 CDT Inactive 12/08/2017 [facility] normal saline 0.9% IV 1,000 mL 1,000 mL, Rate: 100 ml/hr, Infuse over: 10 hr, Route: IV, Dosing Weight 84.5 kg, Total Volume: 1,000, Start date: 12/08/17 8:22:00 CDT, Duration: 30 day, Stop date: 01/07/18 8:21:00 CDT, 2.04, m2 No Longe r Active 12/08/2017 [facility] Sodium Chloride 0.9% IV 1,000 mL + M.V.I .-12 10 mL Daily + folic acid IV 1 mg Daily 1,000 mL, Rate: 100 ml/hr, Infuse over: 10.1 hr, Route: IV, Dosing Weight 84.5 kg, Total Volume: 1,010.2, Start date: 12/08/17 8:21:00 CDT, Stop date: 12/11/17 8:20:00 CDT, 2.04, m2 No Longer Active 12/08/2017 [facility] Hydrocortisone Notes: (Same as : Solu-CORTEF) Inactive 12/08/2017 [facility] Benadryl Notes: (Same as: [place] dryl) Inactive 12/08/2017 [facility] Lasix 20 mg, Route: IVP, Drug form: INJ, ONCE, Dosing Weight 84.5, kg, Priority: NOW, Start date: 12/08/17 6:17:00 CDT, Stop date: 12/08/17 6:17:00 CDT Inactive 12/08/2017 [facility] Tranexamic Acid Notes: (Same A s: Cyklokapron) Inactive 12/08/2017 [facility] Diphenhydramine Notes: (Same a s: Benadryl) Inactive 12/08/2017 [facility] Esomeprazole 20 MG Enteric Coated Capsule [Nexium] 20 mg = 1 cap, PO, Daily, # 30 cap, 0 Refill(s) Active 12/08/2017 [facility] Levofloxacin Notes: Do not giv e w/antacids, dairy pdt & minerals Take 1 hr before or 2 hr after dairy products No Longer Active 12/08/2017 [facility] Albuterol 0.83 MG/ML Inhalant Solution Notes: SEE RT DOCUMENTATION (Same as: Proventil) Inactive 12/08/2017 [facility] Dextrose 50% Syringe 25 gm, 50 mL, Route: IVP, Drug Form: INJ, Dosing Weight 84.5, kg, ONCE, Start date: 12/08/17 0:14:00 CDT, Stop date: 12/08/17 0:14:00 CDT Inactive 12/08/2017 [facility] Insulin regular 60 units) W ASTE: F/P - Black; E - Municipal Trash Bin Stable for 28 days at room temperature Expires in days from Date Inactive 12/08/2017 [facility] normal saline 0.9% IV 1,000 mL 1,000 mL, Rate: 150 ml/hr, Infuse over: 6.7 hr, Route: IV, Dosing Weight 84.5 kg, Total Volume: 1,000, Start date: 12/08/17 0:03:00 CDT, Duration: 30 day, Stop date: 01/07/18 0:02:00 CDT, 2.04, m2 Inactive 12/08/2017 [facility] Calcium Gluconate Notes: WASTE : F/P - Sink; E - Municipal Trash Bin Inactive 12/08/2017 [facility] Morphine Notes: (Same as:MORPh ine Sulfate) No Longer Active 12/08/2017 [facility] Sodium Chloride 0.9% (titrate) 250 mL 250 mL, Rate: To prime line and flush remaining blood products., Route: IV, Total Volume: 250, Start Date: 12/07/17 22:36:00 CDT, Duration: 30 day, Stop date: 01/06/18 22:35:00 CDT, Replace Every: 24 hr No Longer Active 12/08/2017 [facility] Acetaminophen Notes: Do not ex ceed 4 gm/day. (Same as: Tylenol) No Longer Active 12/08/2017 [facility] Nystatin 100 UNT/MG Topical Powder Notes: (Same as:Mycostatin, Nilstat) For external use only. No Longer Active 12/08/2017 [facility] Ondansetron Notes: (Same as: Karol arce) MEDICATION WASTE Product Size: 4 mg Product Wasted: ___ mg No Longer Active 12/08/2017 [facility] Calcium Carbonate 500 MG Chewable Tablet Notes: (Same As: Victor Hugo) Calcium Carbonate 500 mg = 200 mg elemental calcium Dose = mg calcium carbonate ( mg elemental calcium) No Longer Active 12/08/2017 [facility] potassium phosphate-sodium phosphate 250 mg-280 mg-160 mg oral powder for reconstitution Notes: (Same as: Phos-NaK) Each 1.5 gm pkt has 250mg phosphorous. Mix w/2.5oz water and stir. No Longer Active 12/08/2017 [facility] Calcium Gluconate Notes: WASTE : F/P - Sink; E - Municipal Trash Bin No Longer Active 12/08/2017 [facility] Magnesium Oxide Notes: (Same a s: Mag-Ox 400) Magnesium oxide [id number] elemental magnesium Dose=____mg magnesium oxide (___mg elemental magnesium) No Longer Active 12/08/2017 [facility] Potassium Chloride Notes: Infu se at a rate of 10 mEq/hr. (Same as: KCL) No Longer Active 12/08/2017 [facility] potassium phosphate Notes: (Sa me as: K Phosphate.) 1 mMol phoshate has 1.47 mEq potassium Infuse over 4 hours No Longer Active 12/08/2017 [facility] sodium phosphate 30 mmol, 10 m L, Route: IVPB, PRN, kg, PRN Abnormal Lab Result, Start date: 12/07/17 22:35:00 CDT, Duration: 30 day, Stop date: 01/06/18 22:34:00 CDT, FOR ICU USE ONLY No Longer Active 12/08/2017 [facility] Magnesium Sulfate Notes: WASTE : F/P - Sink; E - Municipal Trash Bin No Longer Active 12/08/2017 [facility] Saline Flush 0.9% Notes: (Same as: BD Posiflush) No Longer Active 12/08/2017 [facility] Ipratropium Notes: SEE RT DOCU MENTATION (Same as:Atrovent) No Longer Active 12/08/2017 [facility] Albuterol 0.83 MG/ML Inhalant Solution Notes: SEE RT DOCUMENTATION (Same as: Proventil) No Longer Active 12/08/2017 [facility] Allergies, Adverse Reactions, Alerts Substance Category Reaction Severity Reaction type Status Date Reported Comments Source Keflex Assertion Drug allergy Active [facility] iodine Assertion Drug allergy Active [facility] Immunizations Immunization Date Given Site Status Last Updated Comments Source influenza virus vaccine, inactivated 06/14/2019 Left Deltoid completed Derrek [facility] haemophilus b conjugate (PRP-T) vaccine 12/15/2017 Right deltoid completed Ananth [facility] meningococcal conjugate vaccine 12/15/2017 Right deltoid completed [facility] pneumococcal 13-valent vaccine 12/15/2017 Left deltoid completed [facility] Results Order Name Results Value Reference Range Date Interpretation Comments Source ELECTROLYTES AGAP 12.6 10.0 - 20.0 06/14/2019 [facility] ELECTROLYTES Glucose Lvl 127 70 - 99 06/14/2019 [facility] ELECTROLYTES BUN 11 7 - 22 06/14/2019 [facility] ELECTROLYTES Creatinine Lvl 1.3 1 0.50 - 1.40 06/14/2019 [facility] ELECTROLYTES Sodium Lvl 138 135 - 145 06/14/2019 [facility] ELECTROLYTES Potassium Lvl 4.6 3.5 - 5.1 06/14/2019 [facility] ELECTROLYTES Chloride Lvl 107 95 - 109 06/14/2019 [facility] ELECTROLYTES CO2 23 24 - 32 06/14/2019 [facility] ELECTROLYTES Calcium Lvl 8.9 8.5 - 10.5 06/14/2019 [facility] ELECTROLYTES eGFR 67 06/14/2019 Result Comment: The [...] should be multiplied by the estimated BMI. [facility] HEMATOLOGY WBC 16.9 3.7 - 10.4 06/14/2019 [facility] HEMATOLOGY RBC 5.38 4.70 - 6.10 06/14/2019 [facility] HEMATOLOGY Hgb 14.2 14.0 - 18.0 06/14/2019 [facility] HEMATOLOGY Hct 43.7 42.0 - 54.0 06/14/2019 [facility] HEMATOLOGY MCV 81.3 80.0 - 94.0 06/14/2019 [facility] HEMATOLOGY MCH 26.4 27.0 - 31.0 06/14/2019 [facility] HEMATOLOGY MCHC 32.5 32.0 - 36.0 06/14/2019 [facility] HEMATOLOGY RDW 17.1 11.5 - 14.5 06/14/2019 [facility] HEMATOLOGY Platelet 689 133 - 450 06/14/2019 [facility] HEMATOLOGY MPV 8.0 7.4 - 10.4 06/14/2019 [facility] HEMATOLOGY Segs 56.0 45.0 - 75.0 06/14/2019 [facility] HEMATOLOGY Lymphocytes 30.0 20.0 - 40.0 06/14/2019 [facility] HEMATOLOGY Monocytes 9.3 2.0 - 12.0 06/14/2019 [facility] HEMATOLOGY Eosinophils 3.9 0.0 - 4.0 06/14/2019 [facility] HEMATOLOGY Basophils 0.8 0.0 - 1.0 06/14/2019 [facility] HEMATOLOGY Neutrophils # 9.4 1.5 - 8.1 06/14/2019 [facility] HEMATOLOGY Lymphocytes # 5.0 1.0 - 5.5 06/14/2019 [facility] HEMATOLOGY Monocytes # 1.6 0.0 - 0.8 06/14/2019 [facility] HEMATOLOGY Eosinophils # 0.7 0.0 - 0.5 06/14/2019 [facility] HEMATOLOGY Basophils # 0.1 0.0 - 0.2 06/14/2019 [facility] CHEM PANEL Glucose Lvl 135 70 - 99 06/13/2019 [facility] CHEM PANEL BUN 9 7 - 22 06/13/2019 [facility] CHEM PANEL Creatinine Lvl 1.18 0.50 - 1.40 06/13/2019 [facility] CHEM PANEL Sodium Lvl 138 135 - 145 06/13/2019 [facility] CHEM PANEL Potassium Lvl 4.3 3.5 - 5.1 06/13/2019 [facility] CHEM PANEL Chloride Lvl 107 95 - 109 06/13/2019 [facility] CHEM PANEL CO2 24 24 - 32 06/13/2019 [facility] CHEM PANEL Calcium Lvl 8.8 8.5 - 10.5 06/13/2019 [facility] CHEM PANEL AGAP 11.3 10.0 - 20.0 06/13/2019 [facility] CHEM PANEL eGFR 76 06/13/2019 Result Comment: [...] should be multiplied by the estimated BMI. [facility] CHEM PANEL Glucose Lvl 135 70 - 99 06/13/2019 [facility] CHEM PANEL BUN 9 7 - 22 06/13/2019 [facility] CHEM PANEL Creatinine Lvl 1.18 0.50 - 1.40 06/13/2019 [facility] CHEM PANEL Sodium Lvl 138 135 - 145 06/13/2019 [facility] CHEM PANEL Potassium Lvl 4.3 3.5 - 5.1 06/13/2019 [facility] CHEM PANEL Chloride Lvl 107 95 - 109 06/13/2019 [facility] CHEM PANEL CO2 24 24 - 32 06/13/2019 [facility] CHEM PANEL Calcium Lvl 8.8 8.5 - 10.5 06/13/2019 [facility] CHEM PANEL Total Protein 6.3 6.4 - 8.4 06/13/2019 [facility] CHEM PANEL Albumin Lvl 2.6 3.5 - 5.0 06/13/2019 [facility] CHEM PANEL ALT 56 0 - 65 06/13/2019 [facility] CHEM PANEL AST 33 0 - 37 06/13/2019 [facility] CHEM PANEL Alk Phos 57 39 - 136 06/13/2019 [facility] CHEM PANEL Bili Total 0.2 0.2 - 1.3 06/13/2019 [facility] CHEM PANEL AGAP 11.3 10.0 - 20.0 06/13/2019 [facility] CHEM PANEL B/C Ratio 8 6 - 25 06/13/2019 [facility] CHEM PANEL Globulin 3.7 2.7 - 4.2 06/13/2019 [facility] CHEM PANEL A/G Ratio 0.7 0.7 - 1.6 06/13/2019 [facility] CHEM PANEL eGFR 76 06/13/2019 Result Comment: [...] should be multiplied by the estimated BMI. [facility] HEMATOLOGY WBC 18.8 3.7 - 10.4 06/13/2019 [facility] HEMATOLOGY RBC 4.85 4.70 - 6.10 06/13/2019 [facility] HEMATOLOGY Hgb 13.1 14.0 - 18.0 06/13/2019 [facility] HEMATOLOGY Hct 39.2 42.0 - 54.0 06/13/2019 [facility] HEMATOLOGY MCV 80.8 80.0 - 94.0 06/13/2019 [facility] HEMATOLOGY MCH 26.9 27.0 - 31.0 06/13/2019 [facility] HEMATOLOGY MCHC 33.3 32.0 - 36.0 06/13/2019 [facility] HEMATOLOGY RDW 16.7 11.5 - 14.5 06/13/2019 [facility] HEMATOLOGY Platelet 640 133 - 450 06/13/2019 [facility] HEMATOLOGY MPV 7.5 7.4 - 10.4 06/13/2019 [facility] TOXICOLOGY Vanco Tr 7.4 06/12/2019 [facility] TOXICOLOGY Vanco Tr TND 1500 06/12/2019 [facility] TOXICOLOGY Vanco Tr 0.9 06/11/2019 [facility] TOXICOLOGY Vanco Tr TND 1330 06/11/2019 [facility] HEMATOLOGY WBC 22.5 3.7 - 10.4 06/11/2019 [facility] HEMATOLOGY RBC 4.92 4.70 - 6.10 06/11/2019 [facility] HEMATOLOGY Hgb 13.0 14.0 - 18.0 06/11/2019 [facility] HEMATOLOGY Hct 40.2 42.0 - 54.0 06/11/2019 [facility] HEMATOLOGY MCV 81.5 80.0 - 94.0 06/11/2019 [facility] HEMATOLOGY MCH 26.4 27.0 - 31.0 06/11/2019 [facility] HEMATOLOGY MCHC 32.4 32.0 - 36.0 06/11/2019 [facility] HEMATOLOGY RDW 16.7 11.5 - 14.5 06/11/2019 [facility] HEMATOLOGY Platelet 598 133 - 450 06/11/2019 [facility] HEMATOLOGY MPV 8.1 7.4 - 10.4 06/11/2019 [facility] IMMUNOLOGY HIV. Negat adrian *NA* (06/11/19 4:44 AM) Negative 06/11/2019 [facility] IMMUNOLOGY Hep Bs Ag Negat adrian *NA* (06/11/19 4:44 AM) Negative 06/11/2019 [facility] IMMUNOLOGY Hep B Core IgM Negat adrian *NA* (06/11/19 4:44 AM) Negative 06/11/2019 [facility] IMMUNOLOGY Hep C Ab Negat adrian *NA* (06/11/19 4:44 AM) Negative 06/11/2019 [facility] IMMUNOLOGY Hep A IgM Negat adrian *NA* (06/11/19 4:44 AM) Negative 06/11/2019 [facility] DRUG SCREEN U Amph Scr Nega tive *NA* (06/11/19 3:00 AM) Negative 06/11/2019 [facility] DRUG SCREEN U Yenifer Scr Nega tive *NA* (06/11/19 3:00 AM) Negative 06/11/2019 [facility] DRUG SCREEN U Benzodiaz Scr Posi tive *ABN* (06/11/19 3:00 AM) Negative 06/11/2019 [facility] DRUG SCREEN U Cocaine Scr Nega tive *NA* (06/11/19 3:00 AM) Negative 06/11/2019 [facility] DRUG SCREEN U Cannab Scr Nega tive *NA* (06/11/19 3:00 AM) Negative 06/11/2019 [facility] DRUG SCREEN U Opiate Scr Posi tive *ABN* (06/11/19 3:00 AM) Negative 06/11/2019 [facility] DRUG SCREEN U Phencyclidine Scr Nega tive *NA* (06/11/19 3:00 AM) Negative 06/11/2019 [facility] DRUG SCREEN UDS Note See Note (06/11/19 3:00 AM) 06/11/2019 [facility] DRUG SCREEN U Methadone Scr Nega tive *NA* (06/11/19 3:00 AM) Negative 06/11/2019 [facility] DRUG SCREEN U Propoxyph Scr Nega tive *NA* (06/11/19 3:00 AM) Negative 06/11/2019 [facility] PENICILLIN:SUSC:PT:ISOLATE:ORDQN:ZANE Gram Stain Report Moderate WBC's Rare Gram Positive Cocci In Clusters Critical Results Called To: Ms. 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 06/10/2019 [facility] PENICILLIN:SUSC:PT:ISOLATE:ORDQN:ZANE Staphylococcus aureus Staphylococcus aureus 06/10/2019 [facility] Culture: Anaerobic Many Anaerobic Gram Positive Cocci , Identified As: Peptoniphilus indolicus 06/10/2019 [facility] CHEM PANEL Magnesium Lvl 1.8 1.8 - 2.4 06/10/2019 [facility] CHEM PANEL Phosphorus 1.9 2.5 - 4.5 06/10/2019 [facility] CHEM PANEL Lactic Acid Lvl 0.9 0.5 - 2.2 06/10/2019 [facility] HEMATOLOGY RBC Morph Ping l (06/09/19 11:38 PM) Normal 06/10/2019 [facility] HEMATOLOGY Plt Morph Ping l (06/09/19 11:38 PM) Normal 06/10/2019 [facility] HEMATOLOGY Segs 75.6 45.0 - 75.0 06/10/2019 [facility] HEMATOLOGY Lymphocytes 13.6 20.0 - 40.0 06/10/2019 [facility] HEMATOLOGY Monocytes 9.1 2.0 - 12.0 06/10/2019 [facility] HEMATOLOGY Eosinophils 1.4 0.0 - 4.0 06/10/2019 [facility] HEMATOLOGY Basophils 0.3 0.0 - 1.0 06/10/2019 [facility] HEMATOLOGY Neutrophils # 18.7 1.5 - 8.1 06/10/2019 [facility] HEMATOLOGY Lymphocytes # 3.4 1.0 - 5.5 06/10/2019 [facility] HEMATOLOGY Monocytes # 2.2 0.0 - 0.8 06/10/2019 [facility] HEMATOLOGY Eosinophils # 0.3 0.0 - 0.5 06/10/2019 [facility] HEMATOLOGY Basophils # 0.1 0.0 - 0.2 06/10/2019 [facility] BLOOD BANK RESULTS ABO/Rh O POS 06/10/2019 [facility] BLOOD BANK RESULTS Antibody Scrn Negative (06/09/19 11:35 PM) 06/10/2019 [facility] HEMATOLOGY Segs-Bands # 10.1 1.5 - 8.1 12/15/2017 [facility] HEMATOLOGY Lymphocytes 19.9 20.0 - 40.0 12/15/2017 [facility] HEMATOLOGY Segs 54.9 45.0 - 75.0 12/15/2017 [facility] HEMATOLOGY Monocytes 9.8 2.0 - 12.0 12/15/2017 [facility] HEMATOLOGY Eosinophils 15.3 0.0 - 4.0 12/15/2017 [facility] HEMATOLOGY Basophils 0.1 0.0 - 1.0 12/15/2017 [facility] HEMATOLOGY Lymphocytes # 3.7 1.0 - 5.5 12/15/2017 [facility] HEMATOLOGY Monocytes # 1.8 0.0 - 0.8 12/15/2017 [facility] HEMATOLOGY Eosinophils # 2.8 0.0 - 0.5 12/15/2017 [facility] HEMATOLOGY Basophils # 0.0 0.0 - 0.2 12/15/2017 [facility] MPV 8.1 7.4 - 10.4 12/15/2017 [facility] MCH 29.1 27.0 - 31.0 12/15/2017 [facility] MCHC 34.4 32.0 - 36.0 12/15/2017 [facility] RDW 15.8 11.5 - 14.5 12/15/2017 [facility] Platelet 954 133 - 450 12/15/2017 [facility] MCV 84.5 80.0 - 94.0 12/15/2017 [facility] WBC 18.4 3.7 - 10.4 12/15/2017 [facility] Hgb 8.7 14.0 - 18.0 12/15/2017 [facility] RBC 3.00 4.70 - 6.10 12/15/2017 [facility] Hct 25.3 42.0 - 54.0 12/15/2017 [facility] Monocytes 11.6 2.0 - 12.0 12/15/2017 [facility] Eosinophils 15.1 0.0 - 4.0 12/15/2017 [facility] Basophils 0.7 0.0 - 1.0 12/15/2017 [facility] Segs 52.6 45.0 - 75.0 12/15/2017 [facility] Lymphocytes 20.0 20.0 - 40.0 12/15/2017 [facility] CHEM PANEL Glucose Lvl 88 70 - 99 12/14/2017 [facility] CHEM PANEL Chloride Lvl 99 95 - 109 12/14/2017 [facility] CHEM PANEL BUN 16 7 - 22 12/14/2017 [facility] CHEM PANEL Sodium Lvl 135 135 - 145 12/14/2017 [facility] CHEM PANEL Creatinine Lvl 0.90 0.50 - 1.40 12/14/2017 [facility] CHEM PANEL Calcium Lvl 8.8 8.5 - 10.5 12/14/2017 [facility] CHEM PANEL CO2 27 24 - 32 12/14/2017 [facility] CHEM PANEL eGFR 106 12/14/2017 Result [...] should be multiplied by the estimated BMI. [facility] CHEM PANEL Potassium Lvl 3.7 3.5 - 5.1 12/14/2017 [facility] CHEM PANEL AGAP 12.7 10.0 - 20.0 12/14/2017 [facility] HEMATOLOGY MPV 8.0 7.4 - 10.4 12/14/2017 [facility] Platelet 802 133 - 450 12/14/2017 [facility] RDW 15.4 11.5 - 14.5 12/14/2017 [facility] MCHC 31.2 32.0 - 36.0 12/14/2017 [facility] MCH 27.0 27.0 - 31.0 12/14/2017 [facility] Hct 26.6 42.0 - 54.0 12/14/2017 [facility] MCV 86.6 80.0 - 94.0 12/14/2017 [facility] Hgb 8.3 14.0 - 18.0 12/14/2017 [facility] RBC 3.07 4.70 - 6.10 12/14/2017 [facility] WBC 19.5 3.7 - 10.4 12/14/2017 [facility] Polychrom Moder ate *ABN* (12/14/17 4:28 AM) None Seen 12/14/2017 [facility] Segs 56.0 45.0 - 75.0 12/14/2017 [facility] Bands 1.0 0.0 - 11.0 12/14/2017 [facility] Monocytes # 2.0 0.0 - 0.8 12/14/2017 [facility] Eosinophils # 2.1 0.0 - 0.5 12/14/2017 [facility] Plt Morph Ping l (12/14/17 4:28 AM) 12/14/2017 [facility] Lymphocytes # 4.3 1.0 - 5.5 12/14/2017 [facility] HEMATOLOGY Lymphocytes 21.0 20.0 - 40.0 12/14/2017 [facility] HEMATOLOGY Eosinophils 11.0 0.0 - 4.0 12/14/2017 [facility] HEMATOLOGY Atypical Lymphs 1.0 <=0.0 % 12/14/2017 [facility] HEMATOLOGY Monocytes 10.0 2.0 - 12.0 12/14/2017 [facility] HEMATOLOGY Segs-Bands # 11.1 1.5 - 8.1 12/14/2017 [facility] CHEM PANEL Phosphorus 3.0 2.5 - 4.5 12/13/2017 [facility] CHEM PANEL Magnesium Lvl 2.0 1.8 - 2.4 12/13/2017 [facility] ELECTROLYTES AGAP 11.9 10.0 - 20.0 12/13/2017 [facility] ELECTROLYTES eGFR 84 12/13/2017 Result Comment: [...] should be multiplied by the estimated BMI. [facility] ELECTROLYTES BUN 18 7 - 22 12/13/2017 [facility] ELECTROLYTES Glucose Lvl 87 70 - 99 12/13/2017 [facility] ELECTROLYTES Potassium Lvl 3.9 3.5 - 5.1 12/13/2017 [facility] ELECTROLYTES Creatinine Lvl 1.1 0 0.50 - 1.40 12/13/2017 [facility] ELECTROLYTES Sodium Lvl 135 135 - 145 12/13/2017 [facility] ELECTROLYTES Chloride Lvl 98 95 - 109 12/13/2017 [facility] ELECTROLYTES Calcium Lvl 8.8 8.5 - 10.5 12/13/2017 [facility] ELECTROLYTES CO2 29 24 - 32 12/13/2017 [facility] HEMATOLOGY INR 1.10 0.85 - 1.17 12/13/2017 [facility] PT 14.2 12.0 - 14.7 12/13/2017 [facility] PTT 35.0 22.9 - 35.8 12/13/2017 [facility] Basophils # 0.1 0.0 - 0.2 12/13/2017 [facility] Eosinophils # 1.5 0.0 - 0.5 12/13/2017 [facility] Lymphocytes # 1.7 1.0 - 5.5 12/13/2017 [facility] Segs-Bands # 11.5 1.5 - 8.1 12/13/2017 [facility] Basophils 0.4 0.0 - 1.0 12/13/2017 [facility] Monocytes # 2.2 0.0 - 0.8 12/13/2017 [facility] MPV 8.0 7.4 - 10.4 12/13/2017 [facility] Platelet 629 133 - 450 12/13/2017 [facility] RDW 15.4 11.5 - 14.5 12/13/2017 [facility] MCHC 33.5 32.0 - 36.0 12/13/2017 [facility] MCH 28.7 27.0 - 31.0 12/13/2017 [facility] RBC 2.99 4.70 - 6.10 12/13/2017 [facility] MCV 85.6 80.0 - 94.0 12/13/2017 [facility] Hgb 8.6 14.0 - 18.0 12/13/2017 [facility] WBC 17.1 3.7 - 10.4 12/13/2017 [facility] Hct 25.6 42.0 - 54.0 12/13/2017 [facility] Bands 1.0 0.0 - 11.0 12/13/2017 [facility] Eosinophils # 2.1 0.0 - 0.5 12/13/2017 [facility] Polychrom Moder ate *ABN* (12/13/17 4:43 AM) None Seen 12/13/2017 [facility] Atypical Lymphs 0.0 <=0.0 % 12/13/2017 [facility] Plt Morph Ping l (12/13/17 4:43 AM) 12/13/2017 [facility] Segs-Bands # 12.0 1.5 - 8.1 12/13/2017 [facility] HEMATOLOGY Monocytes # 1.9 0.0 - 0.8 12/13/2017 [facility] HEMATOLOGY Lymphocytes # 1.2 1.0 - 5.5 12/13/2017 [facility] PARATHYROID PROFILE Ca Ion WB 1.07 1.05 - 1.25 12/13/2017 [facility] PARATHYROID PROFILE Ca Norm WB 1.10 1.05 - 1.25 12/13/2017 [facility] CHEM PANEL Magnesium Lvl 2.0 1.8 - 2.4 12/12/2017 [facility] CHEM PANEL Phosphorus 3.0 2.5 - 4.5 12/12/2017 [facility] ELECTROLYTES AGAP 13.3 10.0 - 20.0 12/12/2017 [facility] ELECTROLYTES eGFR 68 12/12/2017 Result Comment: [...] should be multiplied by the estimated BMI. [facility] ELECTROLYTES Calcium Lvl 8.9 8.5 - 10.5 12/12/2017 [facility] ELECTROLYTES BUN 19 7 - 22 12/12/2017 [facility] ELECTROLYTES Glucose Lvl 97 70 - 99 12/12/2017 [facility] ELECTROLYTES Potassium Lvl 3.3 3.5 - 5.1 12/12/2017 [facility] ELECTROLYTES CO2 33 24 - 32 12/12/2017 [facility] ELECTROLYTES Sodium Lvl 135 135 - 145 12/12/2017 [facility] ELECTROLYTES Chloride Lvl 92 95 - 109 12/12/2017 [facility] ELECTROLYTES Creatinine Lvl 1.3 0 0.50 - 1.40 12/12/2017 [facility] HEMATOLOGY PTT 40.2 22.9 - 35.8 12/12/2017 [facility] HEMATOLOGY INR 1.26 0.85 - 1.17 12/12/2017 [facility] HEMATOLOGY PT 15.9 12.0 - 14.7 12/12/2017 [facility] HEMATOLOGY Basophils # 0.1 0.0 - 0.2 12/12/2017 [facility] PARATHYROID PROFILE Ca Norm WB 1.10 1.05 - 1.25 12/12/2017 [facility] PARATHYROID PROFILE Ca Ion WB 1.06 1.05 - 1.25 12/12/2017 [facility] HEMATOLOGY NRBC 1 12/11/2017 [facility] HEMATOLOGY Plt Morph Ping l (12/11/17 3:17 AM) 12/11/2017 [facility] HEMATOLOGY RBC Morph Ping l (12/11/17 3:17 AM) 12/11/2017 [facility] HEMATOLOGY Bands 2.0 0.0 - 11.0 12/11/2017 [facility] Atypical Lymphs 0.0 <=0.0 % 12/11/2017 [facility] URINE AND STOOL UA Urobilinogen <=1.0 0.1 - 1.0 12/10/2017 [facility] URINE AND STOOL UA Glucose 150 12/10/2017 [facility] URINE AND STOOL UA Color Ltyellow 12/10/2017 [facility] URINE AND STOOL UA RBC 1 0 - 2 12/10/2017 [facility] URINE AND STOOL UA WBC 1 0 - 5 12/10/2017 [facility] URINE AND STOOL UA Blood Small *ABN* (12/10/17 6:58 PM) Negative 12/10/2017 [facility] URINE AND STOOL UA Ketones Negative mg/dL Negative mg/dL 12/10/2017 [facility] URINE AND STOOL UA Bili Negative *NA* (12/10/17 6:58 PM) Negative 12/10/2017 [facility] URINE AND STOOL UA Sq Epi Occasional /LPF Few /LPF 12/10/2017 [facility] URINE AND STOOL UA Leuk Est Negative (12/10/17 6:58 PM) Negative 12/10/2017 [facility] URINE AND STOOL UA Turbidity Clear (12/10/17 6:58 PM) Clear 12/10/2017 [facility] URINE AND STOOL UA pH 7.0 5.0 - 8.0 12/10/2017 [facility] URINE AND STOOL UA Protein 30 mg/dL Negative mg/dL 12/10/2017 [facility] URINE AND STOOL UA Spec Grav 1.009 <=1.030 12/10/2017 [facility] URINE AND STOOL UA Nitrite Negative (12/10/17 6:58 PM) Negative 12/10/2017 [facility] Gram Stain Report Less Than 25 Sq uamous Epithelial Cells/Lpf Rare WBC's Few Gram Positive Cocci Few Gram Positive Rods Good Quality Specimen 12/10/2017 [facility] Culture: Respiratory w/Gram Stain F ew Yeast Normal Respiratory Judit Isolated 12/10/2017 [facility] CHEM PANEL Procalcitonin Lvl 4.32 0.00 - 0.10 12/10/2017 Result Comment: Critical Result(s) fermin d to JOSÉ AGUILAR at 12/10/2017 14:20 byTMT. Read back OK. [facility] CHEM PANEL Magnesium Lvl 1.5 1.8 - 2.4 12/10/2017 [facility] PARATHYROID PROFILE Ca Norm WB 1.06 1.05 - 1.25 12/10/2017 [facility] PARATHYROID PROFILE Ca Ion WB 1.00 1.05 - 1.25 12/10/2017 [facility] CHEM PANEL Phosphorus 3.3 2.5 - 4.5 12/09/2017 [facility] HEMATOLOGY PTT 30.7 22.9 - 35.8 12/09/2017 [facility] HEMATOLOGY INR 1.20 0.85 - 1.17 12/09/2017 [facility] HEMATOLOGY PT 15.3 12.0 - 14.7 12/09/2017 [facility] BLOOD BANK RESULTS RBC product Product available 3 (12/09/17 3:49 AM) 12/09/2017 Result Comment: 12/09/2017 0 4:01 SAMATHEW
Blood available, notified [email or web address] at _12/09/2017 04:01 by SM. [facility] CHEM PANEL Bili Total 0.2 0.2 - 1.3 12/09/2017 [facility] CHEM PANEL Globulin 2.7 2.7 - 4.2 12/09/2017 [facility] CHEM PANEL AST 48 0 - 37 12/09/2017 [facility] CHEM PANEL Alk Phos 32 39 - 136 12/09/2017 [facility] CHEM PANEL A/G Ratio 0.8 0.7 - 1.6 12/09/2017 [facility] CHEM PANEL ALT 27 0 - 65 12/09/2017 [facility] CHEM PANEL Albumin Lvl 2.1 3.5 - 5.0 12/09/2017 [facility] CHEM PANEL Total Protein 4.8 6.4 - 8.4 12/09/2017 [facility] CHEM PANEL B/C Ratio 13 6 - 25 12/09/2017 [facility] CHEM PANEL Lactic Acid Lvl 1.3 0.5 - 2.2 12/08/2017 [facility] CHEM PANEL Procalcitonin Lvl 0.08 0.00 - 0.10 12/08/2017 [facility] HEMATOLOGY Fibrinogen Lvl 327 230 - 510 12/08/2017 [facility] CHEM PANEL AST 39 0 - 37 12/08/2017 [facility] CHEM PANEL Alk Phos 35 39 - 136 12/08/2017 [facility] CHEM PANEL Bili Total 0.5 0.2 - 1.3 12/08/2017 [facility] CHEM PANEL A/G Ratio 0.9 0.7 - 1.6 12/08/2017 [facility] CHEM PANEL Globulin 2.9 2.7 - 4.2 12/08/2017 [facility] CHEM PANEL Albumin Lvl 2.5 3.5 - 5.0 12/08/2017 [facility] CHEM PANEL ALT 27 0 - 65 12/08/2017 [facility] CHEM PANEL B/C Ratio 9 6 - 25 12/08/2017 [facility] CHEM PANEL Total Protein 5.4 6.4 - 8.4 12/08/2017 [facility] CHEM PANEL Lactic Acid Lvl 2.5 0.5 - 2.2 12/08/2017 [facility] CARDIAC ENZYMES Troponin-I <0.02 0.00 - 0.40 12/08/2017 [facility] HEMATOLOGY Fibrinogen Lvl 283 230 - 510 12/08/2017 [facility] BLOOD BANK RESULTS FFP product Product available (12/08/17 9:08 AM) 12/08/2017 [facility] BLOOD BANK RESULTS RBC product Product available (12/08/17 9:03 AM) 12/08/2017 [facility] IMMUNOLOGY EBV VCA IgG 4.8 <=0.8 AI 12/08/2017 [facility] [place] EBV VCA IgM 1.3 <=0.8 AI 12/08/2017 [facility] IMMUNOLOGY HIV Ag/Ab 4th Gen Negat adrian *NA* (12/08/17 8:12 AM) Negative 12/08/2017 [facility] [place] EBV VCA IgM 1.7 <=0.8 AI 12/08/2017 [facility] CHEM PANEL Lactic Acid Lvl 1.5 0.5 - 2.2 12/08/2017 [facility] CHEM PANEL Bili Total 0.5 0.2 - 1.3 12/08/2017 [facility] CHEM PANEL Total Protein 5.0 6.4 - 8.4 12/08/2017 [facility] CHEM PANEL Albumin Lvl 2.4 3.5 - 5.0 12/08/2017 [facility] CHEM PANEL B/C Ratio 13 6 - 25 12/08/2017 [facility] CHEM PANEL Alk Phos 34 39 - 136 12/08/2017 [facility] CHEM PANEL ALT 19 0 - 65 12/08/2017 [facility] CHEM PANEL AST 20 0 - 37 12/08/2017 [facility] CHEM PANEL A/G Ratio 0.9 0.7 - 1.6 12/08/2017 [facility] CHEM PANEL Globulin 2.6 2.7 - 4.2 12/08/2017 [facility] HEMATOLOGY RBC Morph Ping l (12/08/17 6:45 AM) 12/08/2017 [facility] HEMATOLOGY Max Amplitude Rapid 57 52 - 71 12/08/2017 [facility] HEMATOLOGY G-value Rapid 6.6 5.0 - 11.6 12/08/2017 [facility] HEMATOLOGY Split Point Rapid 0.6 12/08/2017 [facility] HEMATOLOGY Estimated % Lysis Rapid 2 .9 0.0 - 7.5 12/08/2017 [facility] HEMATOLOGY R-time Rapid 0.7 0.4 - 0.7 12/08/2017 [facility] HEMATOLOGY Angle Rapid 73 64 - 80 12/08/2017 [facility] HEMATOLOGY K-time Rapid 1.4 0.6 - 2.3 12/08/2017 [facility] HEMATOLOGY ACT (TEG) Rapid 113 86 - 118 12/08/2017 [facility] BLOOD BANK RESULTS Platelet product Product available (12/08/17 5:41 AM) 12/08/2017 [facility] BLOOD BANK RESULTS FFP product Product available 2 (12/08/17 5:41 AM) 12/08/2017 Result Comment: 12/08/2017 0 6:12 SAMATHEW
Blood available, notified Americo at _12/08/2017 06:12 by _SM. [facility] BLOOD BANK RESULTS RBC product Product available (12/08/17 5:41 AM) 12/08/2017 [facility] BACTERIAL - SEROLOGY Strep pneumonia e Ag Negative (12/08/17 4:27 AM) Negative 12/08/2017 [facility] BACTERIAL - SEROLOGY Source Strep Urine *NA* (12/08/17 4:27 AM) 12/08/2017 [facility] CARDIAC ENZYMES Troponin-I <0.02 0.00 - 0.40 12/08/2017 [facility] HEMATOLOGY FSP <5 ug/ml <5 ug/ml 12/08/2017 [facility] HEMATOLOGY Fibrinogen Lvl 253 230 - 510 12/08/2017 [facility] HEMATOLOGY D-Dimer 0.45 12/08/2017 [facility] IMMUNOLOGY Log10 HIV1 <1.3 12/08/2017 [facility] [place] Vir Ld-HIV1 RNA Not D etected (12/08/17 4:27 AM) 12/08/2017 [facility] [place] Scr Posit adrian *ABN* (12/08/17 4:27 AM) Negative 12/08/2017 [facility] URINE AND STOOL UA Glucose 50 12/08/2017 [facility] URINE AND STOOL UA Color Yellow 12/08/2017 [facility] URINE AND STOOL UA Sq Epi None Seen 12/08/2017 [facility] URINE AND STOOL UA Urobilinogen 2.0 0.1 - 1.0 12/08/2017 [facility] URINE AND STOOL UA Blood Small *ABN* (12/08/17 2:30 AM) Negative 12/08/2017 [facility] URINE AND STOOL UA Bili Negative *NA* (12/08/17 2:30 AM) Negative 12/08/2017 [facility] URINE AND STOOL UA Ketones Negative mg/dL Negative mg/dL 12/08/[address] [facility] [address] URINE AND STOOL UA Mucus Few /LPF None Seen /LPF 12/08/2017 [facility] URINE AND STOOL UA RBC 6 0 - 2 12/08/2017 [facility] URINE AND STOOL UA Spec Grav 1.021 <=1.030 12/08/2017 [facility] URINE AND STOOL UA Turbidity Slight *ABN* (12/08/17 2:30 AM) Clear 12/08/2017 [facility] URINE AND STOOL UA Protein Negative mg/dL Negative mg/dL 12/08/[address] [facility] [address] URINE AND STOOL UA pH 5.0 5.0 - 8.0 12/08/2017 [facility] URINE AND STOOL UA Nitrite Negative (12/08/17 2:30 AM) Negative 12/08/2017 [facility] URINE AND STOOL UA WBC 1 0 - 5 12/08/2017 [facility] URINE AND STOOL UA Leuk Est Negative (12/08/17 2:30 AM) Negative 12/08/2017 [facility] BLOOD BANK RESULTS Cryo product Product available 1 (12/08/17 1:28 AM) 12/08/2017 Result Comment: 12/08/2017 0 2:00 SAMATHEW
Blood available, notified DUmm at _12/08/2017 02:00 by SM_. [facility] BACTERIAL - SEROLOGY MRSA by PCR Negative (12/07/17 11:11 PM) 12/08/2017 [facility] DRUG SCREEN U Amph Scr Nega tive *NA* (12/07/17 11:11 PM) Negative 12/08/2017 [facility] DRUG SCREEN U Cannab Scr Nega tive *NA* (12/07/17 11:11 PM) Negative 12/08/2017 [facility] DRUG SCREEN U Yenifer Scr Nega tive *NA* (12/07/17 11:11 PM) Negative 12/08/2017 [facility] DRUG SCREEN U Benzodia Scr Nega tive *NA* (12/07/17 11:11 PM) Negative 12/08/2017 [facility] DRUG SCREEN U Cocaine Scr Nega tive *NA* (12/07/17 11:11 PM) Negative 12/08/2017 [facility] DRUG SCREEN U Opiate Scr Posi tive *ABN* (12/07/17 11:11 PM) Negative 12/08/2017 [facility] DRUG SCREEN U Phencyc Scr Nega tive *NA* (12/07/17 11:11 PM) Negative 12/08/2017 [facility] DRUG SCREEN UDS Note See Note (12/07/17 11:11 PM) 12/08/2017 [facility] BLOOD BANK RESULTS Antibody Scrn Negative (12/07/17 11:04 PM) 12/08/2017 [facility] BLOOD BANK RESULTS ABO/Rh O POS 12/08/2017 [facility] CARDIAC ENZYMES BNP 3 <=100 pg/mL 12/08/2017 [facility] CARDIAC ENZYMES Troponin-I <0.02 0.00 - 0.40 12/08/2017 [facility] CHEM PANEL Procalcitonin Lvl <0.05 0.00 - 0.10 12/08/2017 [facility] LIPIDS VLDL 25 12/08/2017 [facility] LIPIDS LDL (Calculated) 95 <=99 mg/dL 12/08/2017 [facility] LIPIDS Chol 135 <=199 mg/dL 12/08/2017 [facility] LIPIDS HDL 15 >=61 mg/dL 12/08/2017 [facility] LIPIDS CHD Risk 9.00 4.00 - 7.30 12/08/2017 [facility] LIPIDS Trig 123 <=149 mg/dL 12/08/2017 [facility] SPECIAL CHEMISTRY Hgb A1C 5.1 <=5.6 % 12/08/2017 [facility] Pathology Reports No Data Provided for This Section Diagnostic Reports Report Value Date Source Abdomen AP DX Patient Name: SE DIANA ROUSE : 1975; Age: 42 years y/o Male MR: [id number] Study: Abdomen AP DX dated 12/13/2017. Clinical Indication: Constipation - hiccups post splectomy; Comparison: None External roni overlie the abdomen. Moderate amount of stool seen in the right colon and descending colon. Nonpathologic bowel gas pattern without evidence of bowel obstruction. Tiny calcification left lower pelvis likely phlebolith. SL: CANDACETROM-PC 12/13/2017 [facility] Chest 1view DX Clinical Indica tion: resp distress Comparison: 12/11/2017 FINDINGS: The frontal chest radiograph shows normal lung volumes with hazy opacities within the lower lobes, stable. The cardiomediastinal contours are normal. The trachea is midline. There are no clinically significant osseous abnormalities noted. IMPRESSION: Stable bibasilar opacities representing atelectasis versus pneumonia. SL: [id number] 12/12/2017 [facility] 1view DX XR CHEST 1 VIEW HISTORY: [...] to the prior day. SL: LS-M 12/11/2017 [facility] Chest 1view DX EXAM: Chest 1vi ew DX DATE: 12/10/2017 3:10 AM CDT INDICATION: Shortness of breath. COMPARISON: 12/09/2017. IMPRESSION: Stable cardiac silhouette and mediastinum. Interval improvement of the extensive bilateral airspace opacities. No significant pleural effusion or pneumothorax detected. SL: [id number] 12/10/2017 [facility] 1view DX EXAM: Chest 1vi ew DX DATE: 12/09/2017 3:00 AM CDT INDICATION: Respiratory failure - Respiratory failure COMPARISON: 12/08/2017. IMPRESSION: Stable mildly enlarged cardiac silhouette and prominent mediastinum. Interval worsening extensive bilateral airspace opacities are present. Low lung volume. No significant pneumothorax detected. SL: [id number] 12/09/2017 [facility] Chest 1view DX 1 VIEW CXR. [...] interval. END OF IMPRESSION SL: WR1-M 12/08/2017 [facility] Chest 1view DX 1 VIEW CXR. POR TABLE EXAM 10:55 PM HISTORY: Shortness of breath. COMPARISON: None. Shallow inspiration with bibasal atelectasis. Upper lungs clear. Cardiomediastinal silhouette normal considering portable technique. Bones intact. IMPRESSION: Shallow inspiration with bibasal atelectasis. END OF IMPRESSION SL: WR1-M 12/07/2017 [facility] Consultation Notes No Data Provided for This Section Discharge Summaries No Data Provided for This Section History and Physicals No Data Provided for This Section Vital Signs Vital Sign Value Date Comments Source Temperature Oral (F) 98.4 F 06/14/2019 [facility] Heart Rate 81 06/14/2019 [facility] Respitory Rate 19 06/14/2019 [facility] Systolic (mm Hg) 136 06/14/2019 [facility] Diastolic (mm Hg) 73 06/14/2019 [facility] Temperature Oral (F) 98.1 F 06/14/2019 [facility] Heart Rate 85 06/14/2019 [facility] Respitory Rate 18 06/14/2019 [facility] Systolic (mm Hg) 147 06/14/2019 [facility] Diastolic (mm Hg) 78 06/14/2019 [facility] Heart Rate 71 06/14/2019 [facility] Respitory Rate 16 06/14/2019 [facility] Systolic (mm Hg) 139 06/14/2019 [facility] Diastolic (mm Hg) 71 06/14/2019 [facility] Temperature Oral (F) 98 F 06/14/2019 [facility] Height 175.2 cm 06/10/2019 [facility] Weight 90.909 06/10/2019 [facility] BMI Calculated 29.62 06/10/2019 [facility] Height 175.26 cm 06/10/2019 [facility] Weight 90.909 06/10/2019 [facility] Height 175.26 cm 06/10/2019 [facility] BMI Calculated 29.6 06/10/2019 [facility] Weight 90.909 06/10/2019 [facility] Heart Rate 101 12/15/2017 [facility] Respitory Rate 18 12/15/2017 [facility] Systolic (mm Hg) 103 12/15/2017 [facility] Diastolic (mm Hg) 61 12/15/2017 [facility] Temperature Oral (F) 98.0 F 12/15/2017 [facility] Systolic (mm Hg) 116 12/15/2017 [facility] Diastolic (mm Hg) 73 12/15/2017 [facility] Respitory Rate 18 12/15/2017 [facility] Heart Rate 98 12/15/2017 [facility] Temperature Oral (F) 98.1 F 12/15/2017 [facility] Systolic (mm Hg) 110 12/15/2017 [facility] Diastolic (mm Hg) 69 12/15/2017 [facility] Respitory Rate 19 12/15/2017 [facility] Heart Rate 86 12/15/2017 [facility] Temperature Oral (F) 98.1 F 12/15/2017 [facility] BMI Calculated 27.51 12/08/2017 [facility] Weight 84.5 12/08/2017 [facility] Height 175.26 cm 12/08/2017 [facility] Encounters Location Location Details Encounter Type Encounter Number Reason For Visit Attending Provider ADM Date DC Date Status Source [facility] Inpatient [id number] Allan Rinaldi 12/08/2017 12/15/2017 [facility] Inpatient [id number] [place] Re[place] 06/10/2019 06/14/2019 [facility] Procedures Procedure Code Date Perfomer Comments Source Colonoscopy [id number] 09/18/2007 [facility] Tonsillectomy [id number] 09/18/1981 [facility] Splenectomy [id number] [facility] Assessment and Plan Assessment and Plan Date [...] erythema, and warmth. He first went to [facility] and had the right swelling I&D and subsequently packed. He was then prescribed Bactrim (day 7) and clindamycin (day 3) from [facility]. Bilateral swellings have continued to worsen and he developed fever (102), nausea, and non bloody emesis yesterday. He was seen at [facility] today and was referred here after [...] 160 mg oral tablet :1 tab, PO, [id number], for 6 day, 12 tab, 0 Refill(s) [...] Rodger Balderrama MD General Surgery PGY-1 MSO# [id number] Pager #[phone] Addendum by Prabhakar Peña MD on 06/15/2019 [...] ppx heparin Brielle Dowd MD Anesthesia, PGY-1 [facility] ATTENDING ADDENDUM: I have personally seen and examined this patient with Dr. Dowd. Furthermore I have reviewed the resident's note and I agree with the above exam, assessment, and plan. I have reviewed all relevant imaging and interpretted it myself. Yana Nuno [id number] 06/14/2019 [facility] Extracted from:Title: FMS Progress Note Author: Polina [...] Rinaldi. Polina Carlson MD MPH PGY1 MSO [id number] Addendum by Allan Rinaldi MD on 12/15/2017 12:47 CDT I was physically present during the irene portions of the patient evaluation and the medical decision making when performed by the resident and I concur with the above documented decisions made by the team under my guidance. Extracted from:Title: Trauma Author: German Carlson MD Date: 12/08/17 Date of Service: 12/08/17 Attending: Robyn Hand Shoe Cutter(s): Cachorro MASON; Ge GRESHAM PreOp Dx: splenic [...] --- 12/08 04:00 ---- ---- ---- 1 109 143 42 100 --- --- 12/08 [...] recommended. Pt agreeable German Carlson MD MSO# [id number] 12/15/2017 [facility] Plan of Care No Data Provided [...] at age: 20.0; entered on: 06/09/19 12/08/2017 [facility] Social History TypeResponse Alcohol Current, Type Beer. Frequency: Daily. Smoking Status Current every day smoker; Type: Cigarettes; Ready to change: Yes; Exposure to Tobacco Smoke None; Cigarette Smoking Last 365 Days Yes; Reg Smoking Cessation Counseling No; Tobacco use per day: 2; Started at age: 20.0; entered on: 12/08/17 12/08/2017 [facility] Family History No Data Provided for This Section Advance Directives No Data Provided for This Section Functional Status No Data Provided for This Section
--- OUTSIDE RECORDS SUMMARY | 2020-07-31 19:16 | XMS REPORT | Continuity of Care Document ---
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 Role Phone NO, PCP PCP Unavailable Jose RAMESH YICHING Attphys Unavailable Jose TAPIA LAIRD Attphys Unavailable NunoDiony main Attphys Batsheva Rinaldi Attphys Jose RAMESH Admphys Unavailable NunoDiony main Admphys Batsheva Rinaldi Admphys Payers Payer Name Policy Type Policy Number Effective Date Expiration Date S juan Self Pay [facility] Problems Condition Name Condition Details Condition Category Status Onset Date Resolution Date Last Treatment Date Treating Clinician Comments Source RIGHT THIGH ABSCESS RIGH T THIGH ABSCESS Active 06/09/2019 [facility] Diagnosis Active 2019-06-09 00:00:00 2019-06-09 23:50:00 Manda Cristina ABSCESS OF HIP ABSC ESS OF HIP Active 06/09/2019 [facility] Diagnosis Active 2019-06-09 00:00:00 2019-07-03 2 2:12:00 Manda Cristina LEFT SIDE PNEUMONIA, DEHYDRATION, POLYCT LEFT SIDE PNEUMONIA, DEHYDRATION, POLYCT Active 12/07/2017 [facility] Diagnosis Active 2017-12-07 00:00:00 2017-12-07 22:29:00 M emoripatrica Cristina HYPOTENSION, INTRAPERITONEAL HEMATOMA HYPOTENSION, INTRAPERITONEAL HEMATOMA Active 12/07/2017 [facility] Diagnosis Ac tive 2017-12-07 00:00:00 2017-12-12 16:01:00 M emoripatrica Cristina Abdominal pain Problem Active [facility] Polycythemia Problem Active [facility] Pneumonia, unspecified organism Pneumonia, unspecified organism 03/23/2018 [facility] Problem 2018-03-23 12:1 7:40 [facility] Jonnie Other shock Othe r shock 03/23/2018 [facility] 2018-03-23 12:17:40 Mem[facility] ial Jonnie Acute respiratory failure with hypoxia Acute respiratory failure with hypoxia 03/23/2018 [facility] Problem 2018-03-23 12:17:40 [facility] Hemoperitoneum Hemo peritoneum 03/23/2018 [facility] 2018-03-23 12:17:40 [facility] Acute kidney failure, unspecified Acute kidney failure, unspecified 03/23/2018 [facility] 2018-03-23 1 2:17:40 [facility] Acute posthemorrhagic anemia A cute posthemorrhagic anemia 03/23/2018 [facility] 2018-03-23 12:1 7:40 [facility] Coagulation defect, unspecified Coagulation defect, unspecified 03/23/2018 [facility] 2018-03-23 1 2:17:40 [facility] Hyperkalemia Hype rkalemia 03/23/2018 [facility] 2018-03-23 12:17:40 [facility] Fluid overload, unspecified Fl uid overload, unspecified 03/23/2018 [facility] 2018-03-23 12:17:4 0 [facility] Nicotine dependence, cigarettes, uncomplicated Nicotine dependence, cigarettes, uncomplicated 03/23/2018 [facility] Problem 2018-03-23 12:17:40 [facility] PNEUMONIA, UNSPECIFIED ORGANISM PNEUMONIA, UNSPECIFIED ORGANISM Active [facility] Active 2017-12-07 22:29 :00 [facility] DEHYDRATION DEHY DRATION Active [facility] Diagnosis Active 2017-12-07 22:29:00 Memor ial Jonnie HYPOTENSION, UNSPECIFIED HYPO TENSION, UNSPECIFIED Active [facility] Diagnosis Active 2017-12-12 16:01:00 [facility] HEMOPERITONEUM HEMO PERITONEUM Active [facility] Diagnosis Active 2017-12-12 16:01:00 [facility] CUTANEOUS ABSCESS OF LIMB, UNSPECIFIED CUTANEOUS ABSCESS OF LIMB, UNSPECIFIED Active [facility] Diagnosis Active 2019-07-03 22:12:00 [facility] Infarction of spleen Infa rction of spleen 12/20/2017 03/23/2018 [facility] Problem 2017-12-20 03:33:13 2018-03-23 12:1 7:40 2018-03-23 12:17:40 Manda Cristina Allergies, Adverse Reactions, Alerts Allergy Name Allergy Type Status Severity Reaction(s) Onset Date Inacti ve Date Treating Clinician Comments Source iodine DA Active SV 2020-07-31 00:00:00 [facility] iodine DA Active SV 2020-01-30 00:00:00 [facility] iodine DA Active SV 2020-01-25 00:00:00 [facility] iodine DA Active SV 2013-08-30 00:00:00 [facility] Keflex Keflex Active [facility] ermann iodine iodine Active [facility] H ermann Social History Social Habit Start Date Stop Date Quantity Comments Source Sex Assigned At [facility] Social History 2017-12-08 06:58:40 2017-12-08 06:58:40 [facility] Jonnie Medications Ordered Medication Name Filled Medication Name Start Date Stop Da te Current Medication? Ordering Clinician Indication Dosage Frequency Signature (SIG) Comments Components Source Acetaminophen/Codeine Phosphate (Tylenol # 3*) 1 Ea TA B Acetaminophen/Codeine Phosphate (Tylenol # 3*) 1 Ea TAB 2020-02-28 15:01:00 Yes 1 Every 6 Hours as needed for Pain [facility] Acetaminophen 500 MG Oral Tablet 2019-06-14 17:32:00 Yes 1,000 mg = 2 tab, PO, Q6H, X 14 day, # 112 tab, 0 Refill(s) Manda Cristina Docusate Sodium 50 MG / sennosides, FPC 8.6 MG Oral Tablet 2019-06-14 17:32:00 Yes 1 tab, PO, BID, X 14 day, # 28 tab, 0 Refill(s) Manda Cristina gabapentin 300 MG Oral Capsule 2019-06-14 17:32:00 Yes 300 mg = 1 cap, PO, Q8H, # 42 cap, 0 Refill(s) Jg umair Cristina methocarbamol 750 mg oral tablet 2019-06-14 17:32:00 [...] actrim] 2019-06-14 17:32:00 Yes 1 tab, PO, [id number], X 6 day, # 12 tab, 0 [...] 2019-06-12 14:00:00 No Notes: (Same as:Robaxin) Manda [place] Tetrahydrocannabinol 2019-06-12 01:31:00 No Notes: (Same as: Marinol) [facility] Dilaudid 2019-06-11 19:40:00 No 0.5 mg, Route: IVP, ONCE, Dosing Weight 90.909, kg, Priority: STAT, Start date: 06/11/19 14:40:00 CDT, Stop date: 06/11/19 14:40:00 CDT [facility] gabapentin 300 MG Oral Capsule 2019-06-11 05:00:00 No Notes: (Same as: Neurontin) [facility] Acetaminophen 2019-06-11 05:00:00 No Notes: Infuse over 15 minutes Do not exceed 4gm/day of acetaminophen MEDICATION WASTE Product Size: 1000 mg Product Wasted: ___ mg [facility] Morphine 2019-06-11 02:00:00 No Not es: (Same as:MORPhine Sulfate) [facility] hydromorphone (ANES) + sodium chloride (ANES) 9 mL 2019-05-20 3 23:30:00 No Route: IV, Drug form: INJ, ONCE, Stop date: 18:30:00 CDT [facility] lidocaine (ANES) 2019-06-10 23:24:00 No Route: IV, Drug form: INJ, ONCE, Stop date: 06/10/19 18:24:00 CDT [facility] propofol (ANES) 2019-06-10 23:24:00 No Route: IV, Drug form: INJ, ONCE, Stop date: 06/10/19 18:24:00 CDT [facility] rocuronium (ANES) 2019-06-10 23:24:00 No Route: IV, Drug form: INJ, ONCE, Stop date: 06/10/19 18:24:00 CDT [facility] succinylcholine (ANES) 2019-06-10 23:24:00 No Route: IV, Drug form: INJ, ONCE, Stop date: 06/10/19 18:24:00 CDT [facility] fentaNYL (ANES) 2019-06-10 23:24:00 No Route: IV, Drug form: INJ, ONCE, Stop date: 06/10/19 18:24:00 CDT [facility] Hydralazine 2019-06-10 23:16:00 No 10 mg, Route: IVP, Q20Min, Dosing Weight 90.909, kg, PRN Elevated BP, Start date: 06/10/19 18:16:00 CDT, Duration: 2 doses or times, Stop date: Limited # of times [facility] Labetalol 2019-06-10 23:16:00 No 10 mg, Route: IVP, Q5Min, Dosing Weight 90.909, kg, PRN Elevated BP, Start date: 06/10/19 18:16:00 CDT, Duration: 5 doses or times, Stop date: Limited # of times [facility] Oxycodone Hydrochloride 5 MG Oral Tablet 2019-06-10 23:16:00 No 5 mg, Route: PO, Drug form: TAB, Q4H, Dosing Weight 90.909, kg, PRN Pain Score 4- 6, Start date: 06/10/19 18:16:00 CDT, Duration: 30 day, Stop date: 07/10/19 18:15:00 CDT [facility] Hydromorphone 2019-06-10 23:16:00 No 0.5 mg, Route: IVP, Q5Min, Dosing Weight 90.909, kg, PRN Pain Score 7-10, Start date: 06/10/19 18:16:00 CDT, Duration: 4 doses or times, Stop date: Limited # of times [facility] Flumazenil 2019-06-10 23:16:00 No 0.2 mg, Route: IVP, PRN, Dosing Weight 90.909, kg, PRN Benzodiazepine Reversal, Initial dose, Start date: 06/10/19 18:16:00 CDT, Duration: 30 day, Stop date: 07/10/19 18:15:00 CDT [facility] Naloxone 2019-06-10 23:16:00 No 0.4 mg, Route: IVP, Q2MIN, Dosing Weight 90.909, kg, PRN Narcotic Reversal, Start date: 06/10/19 18:16:00 CDT, Duration: 8 doses or times, Stop date: Limited # of times [facility] Ondansetron 2019-06-10 23:16:00 No 4 mg, Route: IVP, ONCE, Dosing Weight 90.909, kg, PRN Nausea & Vomiting, Start date: 06/10/19 18:16:00 CDT Manda Cristina midazolam (ANES) 2019-06-10 22:44:00 No Route: IV, Drug form: SOLN, ONCE, Stop date: 06/10/19 17:44:00 CDT Gerri Cristina Lactated Ringers Injection IV (ANES) 1000 mL [...] Cristina Docusate Sodium 50 MG / sennosides, FPC 8.6 MG Oral Tablet 2019-06-10 14:00:00 No Notes: (Same as Senokot-S) Equ iv. to Isis-Colace. Manda Cristina meropenem 2019-06-10 13:00:00 No Notes: (Same as: Merrem) . MEDICATION WASTE Product Size: 1000 mg Product Wasted: ___ mg Manda Cristina pantoprazole 2019-06-10 12:30:00 No Notes: Tablet should not be chewed or crushed. (Same as: Protonix) Gerri Cristina Tylenol 2019-06-10 11:00:00 No Notes: Max acetaminophen 4000 mg/day (4 gm/day). (Same as: Tylenol Extra Strength) Manda Cristina Tramadol 2019-06-10 11:00:00 No 50 mg, Route: PO, Drug form: TAB, Q6H, Dosing Weight 90.909, kg, Start date: 06/10/19 6:00:00 CDT, Duration: 30 day, Stop date: 07/10/19 0:00:00 CDT Epifanio Cristina Lidocaine Hydrochloride 0.05 MG/MG Transdermal Patch [Lidode rm] 2019-06-10 10:00:00 No Notes: Bon ly only once for up to 12 hours in a 24-hour period (12 hours on and 12 hours off). (Same as: Lidoderm) "Remove old patch before application of new patch" Epifaniorosalba gotti Jonnie Vancomycin 2019-06-10 09:00:00 No 2001 mg: infuse over 2.5 hours [facility] heparin 2019-06-10 09:00:00 No Notes: porci ne heparin [facility] heparin sodium, porcine 2500 UNT/ML Injectable Solution 2019-06-10 07:00:00 No Notes: [facility] Tramadol 2019-06-10 06:53:00 No Notes: Not to exceed 400mg/day. (Same As: Ultram) [facility] Vancomycin 2019-06-10 06:20:00 No 800 mg, Route: IV, ONCE, Dosing Weight 90.909, kg, Start date: 06/10/19 1:20:00 CDT, Stop date: 06/10/19 1:20:00 CDT, ABX Indication: Skin/Soft Tissue Infection [facility] Isolyte S PH 7.4 1,000 mL 2019-06-10 06:05:00 No Notes: (Same as: Isolyte S PH 7.4) [facility] meropenem 2019-06-10 05:37:00 No Notes: Same as Merrem MEDICATION WASTE Product Size: 500 mg Product Wasted: _0__ mg Manda Cristina Morphine 2019-06-10 04:28:00 No Not es: (Same as:MORPhine Sulfate) Manda Cristina ferrous sulfate 325 MG Oral Tablet 2017-12-15 16:57:00 Yes 325 mg = 1 tab, PO, TID, # 90 tab, 0 Refill(s) Me ankur Cristina chlorproMAZINE 25 mg oral tablet 2017-12-15 16:57:00 Yes 25 mg = 1 tab, PO, BID, # 10 tab, 0 Refill(s) Jg Cristina ferrous sulfate 2017-12-15 14:00:00 No Notes: Give with food. iron elemental [id number] as ferrous sulfate Dose=___mg elemental iron Manda Cristina meningococcal group A polysaccharide / m eningococcal group C polysaccharide / MENINGOCOCCAL POLYSACCHARIDE VACCINE GROUP W-135 / MENINGOCOCCAL POLYSACCHARIDE VACCINE GROUP Y 2017-12-14 21:39:00 No Notes: (Same as: Menomune A/C/Y/W-135) (meningococcal polysaccharide vaccine 0.5ml/dose INJ) WASTE: F/P - Black; E - Municipal Trash Bin Michael [facility] Chlorpromazine 2017-12-13 18:00:00 No Notes: (Same As: Thorazine) Manda Cristina Haemophilus influenzae type b strain 148 2, capsular polysaccharide inactivated tetanus toxoid conjugate vaccine 0.068 MG/ML Injectable Solution [ActHIB] 2017-12-13 16:00:00 No Notes: (Same as: Act Hib) Haemophilus Influenzae Conjugate Vaccine (tetanus toxid conjugate). Manda Cristina Chlorpromazine 2017-12-13 15:26:00 No Notes: (Same As: Thorazine) Manda Cristina Protonix 2017-12-12 21:30:00 No 20 mg, Route: PO, Drug form: ECTAB, Before Dinner, Dosing Weight 84.5, kg, Start date: 12/12/17 16:30:00 CDT, Duration: 30 day, Stop date: 01/10/18 16:30:00 CDT Manda Cristina Miralax 2017-12-12 14:00:00 No Notes: Dissolve in 8 oz of water or juice. (Same as: Miralax) [facility] nn Baclofen 2017-12-11 17:48:00 No Notes: (Norm e As: Lioresal) [facility] Zosyn 2017-12-11 17:00:00 No Notes: (Same as: Zosyn) Dosing based on Piperacillin component MEDICATION WASTE Product Size: 3375 mg Product Wasted: ___ mg [facility] Lasix 2017-12-11 02:00:00 No Notes: (Same as: Lasix) MEDICATION WASTE Product Size: 40 mg Product Wasted: ___ mg [facility] Tramadol 2017-12-10 16:45:00 No Notes: Not to exceed 400mg/day. (Same As: Ultram) [facility] Methadone 2017-12-10 16:45:00 No Notes: (Sa me as: Dolophine) [facility] Acetaminophen 2017-12-10 16:45:00 No Notes: Max acetaminophen 4000 mg/day (4 gm/day). (Same as: Tylenol Extra Strength) [facility] multivitamin 2017-12-10 14:00:00 No Notes: (Same as:Thera) WASTE: F/P - Black; E - Municipal Trash Bin Take with food. [facility] Thiamine 2017-12-10 14:00:00 No 100 mg, Route: PO, Daily, Dosing Weight 84.5, kg, Start date: 12/10/17 9:00:00 CDT, Duration: 5 day, Stop date: 12/14/17 9:00:00 CDT [facility] Folic Acid 2017-12-10 14:00:00 No Notes: (S lynn as: Folvite) [facility] Furosemide 2017-12-10 14:00:00 No 40 mg, Route: IVP, Drug form: INJ, Daily, Dosing Weight 84.5, kg, Start date: 12/10/17 9:00:00 CDT, Duration: 30 day, Stop date: 01/08/18 9:00:00 CDT [facility] [place] Lasix 2017-12-10 13:15:00 No 40 mg, Route: IVP, Drug form: INJ, ONCE, Dosing Weight 84.5, kg, Start date: 12/10/17 8:15:00 CDT, Stop date: 12/10/17 8:15:00 CDT [facility] Acetaminophen 2017-12-09 23:00:00 No Notes: Max acetaminophen 4000 mg/day (4 gm/day). (Same as: Tylenol Extra Strength) [facility] Furosemide 2017-12-09 22:47:00 No 40 mg, Route: IVP, Drug form: INJ, ONCE, Dosing Weight 84.5, kg, Start date: 12/09/17 17:47:00 CDT, Stop date: 12/09/17 17:47:00 CDT [facility] Furosemide 2017-12-09 14:27:00 No Notes: (Same as: Lasix) MEDICATION WASTE Product Size: 40 mg Product Wasted: ___ mg [facility] Lorazepam 2017-12-09 14:02:00 No Notes: (Sa me as: Ativan) [facility] Vitamin B1 2017-12-09 14:00:00 No Notes: (S lynn As: Vitamin B1) [facility] Protonix 2017-12-09 12:30:00 No Notes: Tablet should not be chewed or crushed. (Same as: Protonix) [facility] Lasix 2017-12-09 11:07:00 No Notes: (Same as: Lasix) MEDICATION WASTE Product Size: 40 mg Product Wasted: ___ mg [facility] Acetaminophen 325 MG / Hydrocodone Bitartrate 5 MG Oral Tabl et [[place] 5/325] 2017-12-09 10:36:00 No Notes: (Same as: [place] 325/5) Do not exceed 4gm/day of acetaminophen. [facility] Robituss[facility]-AC oral syrup 2017-12-09 10:36:00 No Notes: (Same As: Robitussin AC) [facility] sennosides, FPC 2017-12-09 02:00:00 No Notes: (Same as: Senokot) [facility] Docusate 2017-12-09 02:00:00 No Notes: (Same as: Colace) (Do Not Crush) [facility] Protonix 2017-12-09 00:55:00 No Notes: Tablet should not be chewed or crushed. (Same as: Protonix) [facility] NS (Bolus) IV 2017-12-08 22:04:00 No 500 mL, 500 ml/hr, Infuse Over: 1 hr, Route: IV, 500, Drug form: INJ, ONCE, Priority: STAT, Dosing Weight 84.5 kg, Start date: 12/08/17 17:04:00 CDT, Stop date: 12/08/17 17:04:00 CDT [facility] Zofran 2017-12-08 19:04:00 No Notes: (Same as: Zofran) MEDICATION WASTE Product Size: 4 mg Product Wasted: ___ mg [facility] diphtheria toxoid vaccine, inactivated / Haemophilus capsula r oligosaccharide 2017-12-08 19:00:00 No 0.5 ml, Route: IM, Drug Form: SOLN, Dosing Weight 84.5, kg, ONCALL, Within 24 hours, Start date: 12/08/17 14:00:00 CDT, Duration: 1 day, Stop date: 12/09/17 13:59:00 CDT [facility] meningococcal group A polysaccharide / m eningococcal group C polysaccharide / MENINGOCOCCAL POLYSACCHARIDE VACCINE GROUP W-135 / MENINGOCOCCAL POLYSACCHARIDE VACCINE GROUP Y 2017-12-08 19:00:00 No 0.5 ml, Route: SUB-Q, Dosing Weight 84.5, kg, ONCALL, Within 24 hours, Start date: 12/08/17 14:00:00 CDT [facility] pneumococcal capsular polysaccharide typ e 1 vaccine / pneumococcal capsular polysaccharide type 10A vaccine / pneumococcal capsular polysaccharide type 11A vaccine / pneumococcal capsular polysaccharide type 12F vaccine / pneumococcal capsular polysacchar 2017-12-08 18:27:00 No Notes: (Same as: Pneumovax 23) Refrigerate [facility] haemophilus b conjugate (PRP-T) vaccine 2017-12-08 18:00:00 No Notes: (Same as: Act Hib) Haemophilus Influenzae Conjugate Vaccine (tetanus toxid conjugate). [facility] acetaminophen 2017-12-08 17:39:00 No Notes: Infuse over 15 minutes Do not exceed 4gm/day of acetaminophen MEDICATION WASTE Product Size: 1000 mg Product Wasted: ___ mg [facility] [place] pneumococcal 13-valent vaccine intramuscular suspension 2017-12-08 17:00:00 No Notes: Shake well prior to use (Same as : Prevnar 13) Manda Jonnie Ipratropium [place] 0.2 MG/ML Inhalant Solution 2017-12-08 17:00 :00 No Notes: SEE RT DOCUMENTATION (Same as:Sylwia) Manda Cristina meningococcal group A polysaccharide / m eningococcal group C polysaccharide / MENINGOCOCCAL POLYSACCHARIDE VACCINE GROUP W-135 / MENINGOCOCCAL POLYSACCHARIDE VACCINE GROUP Y 2017-12-08 17:00:00 No Notes: (Same as: Tejomluis manuel A/C/Y/W-135) (meningococcal polysaccharide vaccine 0.5ml/dose INJ) WASTE: F/P - Black; E - Municipal Trash Bin Memoria l Jonnie Haemophilus capsular oligosaccharide 0.0 15 MG/ML / Neisseria meningitidis 0.25 MG/ML Injectable Suspension 2017-12-08 17:00:00 No 0.5 ml, Route: IM, Drug Form: SUSP, Dosing Weight 84.5, kg, ONCALL, Start date: 12/08/17 12:00:00 CDT, Duration: 30 day, Stop date: 01/07/18 11:59:00 CDT [facility] Jonnie Haemophilus capsular oligosaccharide 0.0 15 MG/ML / Neisseria meningitidis 0.25 MG/ML Injectable Suspension 2017-12-08 16:47:00 No 0.5 ml, Route: IM, Drug Form: SUSP, Dosing Weight 84.5, kg, ONCE, Start date: 12/08/17 11:47:00 CDT, Stop date: 12/08/17 11:47:[address] [facility] Jonnie Tramadol 2017-12-08 16:13:00 No Notes: Not to exceed 400mg/day. (Same As: Ultram) [facility] Jonnie Ketorolac 2017-12-08 16:13:00 No 4 days MEDICATION WASTE Product Size: 30 mg Product Wasted: ___ mg [facility] celecoxib 2017-12-08 16:13:00 No Notes: NSAID. Please check indication. Not for seizure. (Same As: CeleBREX) [facility] pregabalin 2017-12-08 16:13:00 No Notes: (S lynn as: Lyrica) [facility] Acetaminophen 2017-12-08 16:13:00 No Notes: Infuse over 15 minutes Do not exceed 4gm/day of acetaminophen MEDICATION WASTE Product Size: 1000 mg Product Wasted: ___ mg Memrosalba Cristina Methadone 2017-12-08 16:13:00 No Notes: (Sa me as: Dolophine) Manda Cristina metoprolol ([facility]) 2017-12-08 15:08:00 No Route: IV, Drug form: INJ, ONCE, Stop date: 12/08/17 10:08:00 CDT tami Cristina glycopyrrolate (ANES) 2017-12-08 15:03:00 No Route: IV, Drug form: INJ, ONCE, Stop date: 12/08/17 10:03:00 CDT [facility] Jonnie neostigmine (ANES) 2017-12-08 15:03:00 No Route: IV, Drug form: INJ, ONCE, Stop date: 12/08/17 10:03:00 CDT tami Cristina morphine Sulfate (ANES) 2017-12-08 15:03:00 No Route: IV, Drug form: INJ, ONCE, Stop date: 12/08/17 10:03:00 CDT [facility] calcium chloride (ANES) 2017-12-08 14:58:00 No Route: IV, Drug form: INJ, ONCE, Stop date: 12/08/17 9:58:00 CDT [facility] ondansetron (ANES) 2017-12-08 14:53:00 No Route: IV, Drug form: INJ, ONCE, Stop date: 12/08/17 9:53:00 [facility] ([facility]ES) 2017-12-08 14:43:00 No Route: IV, Drug form: INJ, ONCE, Stop date: 12/08/17 9:43:00 [facility] fentaNYL (ANES) 2017-12-08 14:43:00 No Route: IV, Drug form: INJ, ONCE, Stop date: 12/08/17 9:43:[address] Cristina rocuronium (ANES) 2017-12-08 14:43:00 No Route: IV, Drug form: INJ, ONCE, Stop date: 12/08/17 9:43:00 CDT [facility] Sodium Chloride 0.9% IV (EMELYNS) 500 mL 2017-12-08 14:38:00 N o Route: IV, Total Volume: 500, Start date: 12/08/17 9:38:00 CDT, Stop date: 12/08/17 10:38:00 CDT [facility] phenylephrine (ANES) 2017-12-08 14:23:00 No Route: IV, Drug form: INJ, ONCE, Stop date: 12/08/17 9:23:00 CDT [facility] ceFAZolin (ANES) 2017-12-08 14:13:00 No Route: IV, Drug form: INJ, ONCE, Stop date: 12/08/17 9:13:00 CDT [facility] potassium chloride (ANES) 40 mEq 2017-12-08 14:11:00 No Route: IV, Drug form: INJ, Start date: 12/08/17 9:11:00 CDT, Stop date: 12/08/17 10:11:00 CDT [facility] Prednisone 2017-12-08 14:00:00 No Notes: Ta ke with food. [facility] Budesonide 2017-12-08 14:00:00 No Notes: (S lynn As: Pulmicort) [facility] Saline Flush 0.9% 2017-12-08 14:00:00 No Notes: (Same as: BD Posiflush) [facility] Isolyte S PH 7.4 (ANES) 1000 mL 2017-12-08 13:31:00 No Route: IV, Total Volume: 1,000, Start date: 12/08/17 8:31:00 CDT, Stop date: 12/08/17 9:31:00 CDT [facility] normal saline 0.9% IV 1,000 mL 2017-12-08 13:22:00 No 1,000 mL, Rate: 100 ml/hr, Infuse over: 10 hr, Route: IV, Dosing Weight 84.5 kg, Total Volume: 1,000, Start date: 12/08/17 8:22:00 CDT, Duration: 30 day, Stop date: 01/07/18 8:21:00 CDT, 2.04, m2 [facility] Sodium Chloride 0.9% IV 1,000 mL + M.V.I .-12 10 mL Daily + folic acid IV 1 mg Daily 2017-12-08 13:21:00 No 1,000 mL, Rate: 100 ml/hr, Infuse over: 10.1 hr, Route: IV, Dosing Weight 84.5 kg, Total Volume: 1,010.2, Start date: 12/08/17 8:21:00 CDT, Stop date: 12/11/17 8:20:00 CDT, 2.04, m2 [facility] [place] Hydrocortisone 2017-12-08 11:32:00 No Notes: (Same as: Solu-CORTEF) [facility] [place] Benadryl 2017-12-08 11:32:00 No Notes: (Norm e as: Benadryl) [facility] Jonnie Lasix 2017-12-08 11:17:00 No 20 mg, Route: IVP, Drug form: INJ, ONCE, Dosing Weight 84.5, kg, Priority: NOW, Start date: 12/08/17 6:17:00 CDT, Stop date: 12/08/17 6:17:00 CDT [facility] Tranexamic Acid 2017-12-08 10:41:00 No Notes: (Same As: Cyklokapron) [facility] Diphenhydramine 2017-12-08 07:16:00 No Notes: (Same as: Benadryl) Manda Cristina Esomeprazole 20 MG Enteric Coated Capsule [Nexium] 2017-11 07:06:00 Yes 20 mg = 1 cap, PO, Daily, # 30 cap, 0 Re fill(s) [facility] [place] Levofloxacin 2017-12-08 07:00:00 No Notes: Do not give w/antacids, dairy pdt & minerals Take 1 hr before or 2 hr after dairy products Manda Cristina Albuterol 0.83 MG/ML Inhalant Solution 2017-12-08 05:14:00 No Notes: SEE RT DOCUMENTATION (Same as: Proventil) Manda Cristina Dextrose 50% Syringe 2017-12-08 05:14:00 No 25 gm, 50 mL, Route: IVP, Drug Form: INJ, Dosing Weight 84.5, kg, ONCE, Start date: 12/08/17 0:14:00 CDT, Stop date: 12/08/17 0:14:00 CDT [facility] Insulin regular 2017-12-08 05:14:00 No [...] Sink; E - Municipal Trash Bin Manda Jonnie Morphine 2017-12-08 03:39:00 No Not es: (Same [...] Tablet 2017-12-08 03:35:00 No Notes: (Same As: Tumrudy) Calcium Carbonate 500 mg = 200 mg [...] Notes: (Same as: Mag-Ox 400) Magnesium oxide 122gp=858kp elemental magnesium Dose=____mg magnesium oxide (___mg elemental magnesium) Manda goyal Potassium Chloride 2017-12-08 03:35:00 No Notes: Infuse at a rate of 10 mEq/hr. (Same as: KCL) [facility] [place] avalos potassium phosphate 2017-12-08 03:35:00 No Notes: (Same as: K Phosphate.) 1 mMol phoshate has 1.47 mEq potassium Infuse over 4 hours [facility] sodium phosphate 2017-12-08 03:35:00 No 30 mmol, 10 mL, Route: IVPB, PRN, kg, PRN Abnormal Lab Result, Start date: 12/07/17 22:35:00 CDT, Duration: 30 day, Stop date: 01/06/18 22:34:00 CDT, FOR ICU USE ONLY [facility] Magnesium Sulfate 2017-12-08 03:35:00 No Notes: WASTE: F/P - Sink; E - Municipal Trash [facility] Manda Cristina Saline Flush 0.9% 2017-12-08 03:35:00 No Notes: (Same as: BD Posiflush) Manda Cristina Ipratropium 2017-12-08 03:35:00 No Notes: SEE RT DOCUMENTATION (Same as:Atrovent) Manda Cristina Albuterol 0.83 MG/ML Inhalant Solution 2017-12-08 03:35:00 No Notes: SEE RT DOCUMENTATION (Same as: Proventil) Manda Cristina Esomeprazole Magnesium (Nexium) 20 Mg CAPSULE.DR Grimaldo prazole Magnesium (Nexium) 20 Mg CAPSULE.DR Ha 20 Daily I [facility] Vital Signs Vital Name Observation Time Observation Value Comments Source Body Temperature 2020-02-28 11:40:00 98.0 [degF] [facility] BMI (Body Mass Index) 2020-02-28 00:17:00 29.6 kg/m2 [facility] Weight 2020-02-24 02:15:00 195 [lb_av] [facility] Weight 2020-02-02 13:12:00 190 [lb_av] [facility] BMI (Body Mass Index) 2020-02-02 13:12:00 28.9 kg/m2 [facility] Temperature Oral (F) 2019-06-14 16:50:00 98.4 F [facility] Heart Rate 2019-06-14 16:50:00 [facility] Respitory Rate 2019-06-14 16:50:00 [facility] Systolic (mm Hg) 2019-06-14 16:50:00 J[facility] [place] Diastolic (mm Hg) 2019-06-14 16:50:00 [facility] Temperature Oral (F) 2019-06-14 13:05:00 98.1 F [facility] [place] Heart Rate 2019-06-14 13:05:00 [facility] Respitory Rate 2019-06-14 13:05:00 [facility] [place] Systolic (mm Hg) 2019-06-14 13:05:00 [facility] Diastolic (mm Hg) 2019-06-14 13:05:00 [facility] [place] Heart Rate 2019-06-14 08:24:00 [facility] Respitory Rate 2019-06-14 08:24:00 [facility] Systolic (mm Hg) 2019-06-14 08:24:00 [facility] Diastolic (mm Hg) 2019-06-14 08:24:00 [facility] Temperature Oral (F) 2019-06-14 04:25:00 98 F [facility] Height 2019-06-10 09:20:00 175.2 cm [facility] [place] Weight 2019-06-10 09:20:00 [facility] [place] BMI Calculated 2019-06-10 09:20:00 [facility] Height 2019-06-10 06:24:00 175.26 cm [facility] Weight 2019-06-10 06:24:00 [facility] Height 2019-06-10 04:03:00 175.26 cm [facility] [place] BMI Calculated 2019-06-10 04:03:00 [facility] Weight 2019-06-10 04:03:00 [facility] [place] Heart Rate 2017-12-15 17:09:00 [facility] Respitory Rate 2017-12-15 17:09:00 [facility] [place] Systolic (mm Hg) 2017-12-15 17:09:00 Jg [facility] [place] Diastolic (mm Hg) 2017-12-15 17:09:00 [facility] Temperature Oral (F) 2017-12-15 17:09:00 98.0 F [facility] [place] Systolic (mm Hg) 2017-12-15 12:06:00 [facility] Diastolic (mm Hg) 2017-12-15 12:06:00 [facility] [place] Respitory Rate 2017-12-15 12:06:00 [facility] Heart Rate 2017-12-15 12:06:00 [facility] [place] Temperature Oral (F) 2017-12-15 12:06:00 98.1 F [facility] Systolic (mm Hg) 2017-12-15 10:48:00 Jg [facility] [place] Diastolic (mm Hg) 2017-12-15 10:48:00 [facility] Respitory Rate 2017-12-15 10:48:00 [facility] [place] Heart Rate 2017-12-15 10:48:00 [facility] Temperature Oral (F) 2017-12-15 10:48:00 98.1 F [facility] BMI Calculated 2017-12-08 03:43:00 [facility] [place] Weight 2017-12-08 03:43:00 [facility] Height 2017-12-08 03:43:00 [facility] Procedure Date / Time Performed Performing Clinician [facility] e Computed tomography of abdomen and pelvis with contrast 00:00:00 [facility] CT of abdomen and pelvis without contrast 2020-02-02 00:00:00 [facility] Colonoscopy 2007-09-18 00:00:00 [facility] Tonsillectomy 1981-09-18 00:00:00 [facility] Splenectomy [facility] Plan of Care Planned Activity Planned Date Details Comments Source Instructions Abdominal Pain - Adult [facility] Instructions Post Operative Pain [facility] Encounters Start Date/Time End Date/Time Encounter Type Admission Type Attendi [facility] Care Department Encounter ID Source 2020-02-02 13:03:00 2020-02-02 17:03:00 Departed Emergency Room [address] [facility] [place] [id number] [facility] 2019-06-09 23:02:00 2019-06-14 16:01:00 Outpatient Gregor Reina [facility] [id number] 2019-06-09 21:48:00 2019-06-09 21:48:00 Inpatient Gregor [facility] [id number] [facility] 2017-12-07 22:28:00 2017-12-15 16:00:00 Outpatient Allan Rinaldi [facility] [id number] Results Test Description Test Time Test Comments Results Result Comments Source Blood leukocytes automated count (number/volume) 2020-02-27 05:40:00 Test Item White Blood Count (test code = 6690-2) 14.19 4.8-10.8 [facility] erythrocytes automated count (number/volume)2020-02-27 05:40:00* Test Item Value Reference Range Interpretation Comments Red Blood Count (test code = 789-8) 5.27 4.3-5.7 [facility] hemoglobin measurement (moles/volume)2020-02-27 05:40:00* Test Item Value Reference Range Interpretation Comments Hemoglobin (test code = 56293-9) 14.2 14.0-18.0 [facility] blood hematocrit (volume fraction)2020-02-27 05:40:00* Test Item Value Reference Range Interpretation Comments Hematocrit (test code = 4544-3) 41.6 38.2-49.6 [facility] Arlington[facility] erythrocyte mean corpuscular yaloin8701-31-57 05:40:00* Test Item Value Reference Range Interpretation Comments Mean Corpuscular Volume (test code = 787-2) 78.9 81-99 [facility] erythrocyte mean corpuscular hemoglobin (mass per erythrocyte)2020-02-27 05:40:00* Test Item Value Reference Range Interpretation Comments Mean Corpuscular Hemoglobin (test code = 785-6) 26.9 28-32 [facility] ArlingtonAutom[facility] erythrocyte mean corpuscular hemoglobin concentration measurement (mass/volume)2020-02-27 05:40:00* Test Item Value Reference Range Interpretation Comments Mean Corpuscular Hemoglobin Concent (test code = 786-4) 34.1 31-35 [facility] ArlingtonRDW KwwDh-Zvd6745-27-11 05:40:00* Test Item Value Reference Range Interpretation Comments Red Cell Distribution Width (test code = 13450-0) 23.2 11.7 -14.4 [facility] ArlingtonAutecu health blood platelet count (count/volume)2020-02-27 05:40:00* Test Item Value Reference Range Interpretation Comments Platelet Count (test code = 777-3) 506 140-[facility] neutrophil count as percentage of total kmzdrqpkeg7955-72-30 05:40:00* Test Item Value Reference Range Interpretation Comments Neutrophils (%) (Auto) (test code = 84505-6) 56.2 38.7-80.0 [facility] blood lymphocyte count as percentage ot total makdnrrzyw9640-35-23 05:40:00* Test Item Value Reference Range Interpretation Comments Lymphocytes (%) (Auto) (test code = 736-9) 27.8 18.0-39.1 [facility] ArlingtonAutformerly [facility] monocyte count as percentage of total mwfucwijqg0530-58-41 05:40:00* Test Item Value Reference Range Interpretation Comments Monocytes (%) (Auto) (test code = 5905-5) 13.3 4.4-11.3 [facility]Aut[facility] blood eosinophil count as percentage of total ummrkmmcdt1037-47-21 05:40:00* Test Item Value Reference Range Interpretation Comments Eosinophils (%) (Auto) (test code = 713-8) 1.6 0.0-6.[address] [facility] basophil count as percentage of total zteawbmwow2273-14-04 05:40:00* Test Item Value Reference Range Interpretation Comments Basophils (%) (Auto) (test code = 706-2) 0.5 0.0-1.0 [facility] ArlingtonFluoroscopic procedure less than one hour lcwyhlzs3325-64-30 05:40:00* Test Item Value Reference Range Interpretation Comments IM GRANULOCYTES % (test code = IM GRANULOCYTES %) 0.6 0.0- 1.0 [facility] ArlingtonAutom[facility] blood neutrophil count 2020-02-27 05:40:00* Test Item Value Reference Range Interpretation Comments Neutrophils # (Auto) (test code = 751-8) 8.0 2.1-6.9 [facility] lymphocytes count (number/volume) 2020-02-27 05:40:00* Test Item Value Reference Range Interpretation Comments Lymphocytes # (Auto) (test code = 59583-0) 4.0 1.0-3.2 [facility]Bl[facility] monocytes automated count (number/volume)2020-02-27 05:40:00* Test Item Value Reference Range Interpretation Comments Monocytes # (Auto) (test code = 742-7) 1.9 0.2-0.8 [facility] ArlingtonAutom[facility] blood eosinophil count 2020-02-27 05:40:00* Test Item Value Reference Range Interpretation Comments Eosinophils # (Auto) (test code = 711-2) 0.2 0.0-0.4 [facility] ArlingtonAutom[facility] blood basophil count (count/volume)2020-02-27 05:40:00* Test Item Value Reference Range Interpretation Comments Basophils # (Auto) (test code = 704-7) 0.1 0.0-0.1 [facility] ArlingtonFluoroscopic procedure less than one hour rgavvqme3230-55-74 05:40:00* Test Item Value Reference Range Interpretation Comments Absolute Immature Granulocyte (auto (braden t code = Absolute Immature Granulocyte (auto) 0.09 0-0.1 [facility] ArlingtonFluoroscopic procedure less than one hour defntnmn9490-44-80 05:40:00* Test Item Value Reference Range Interpretation Comments Differential Total Cells Counted (test code = Ingrid albertl Total Cells Counted) 100 [facility] blood neutrophils/100 leukocytes 2020-02-27 05:40:00* Test Item Value Reference Range Interpretation Comments Neutrophils % (Manual) (test code = 23578-3) 56 40-74 [facility] blood lymphocytes/100 leukocytes 2020-02-27 05:40:00* Test Item Value Reference Range Interpretation Comments Lymphocytes % (Manual) (test code = 737-7) 17 19-48 [facility] blood monocytes/100 leukocytes 2020-02-27 05:40:00* Test Item Value Reference Range Interpretation Comments Monocytes % (Manual) (test code = 744-3) 6 3.4-9.0 [facility] blood eosinophil count as percentage of total xioofbiuxy0623-08-89 05:40:00* Test Item Value Reference Range Interpretation Comments Eosinophils % (Manual) (test code = 714-6) 1 0-7 [facility] lymphocytes variant count (number/volume)2020-02-27 05:40:00* Test Item Value Reference Range Interpretation Comments Reactive Lymphocytes (test code = 39596-7) 20 [facility] platelets count by estimate (number/volume)2020-02-27 05:40:00* Test Item Value Reference Range Interpretation Comments Platelet Estimate (test code = 25092-4) SLIGHTLY INCREASED [facility] ArlingtonPlatelet nxhbwqiwfb6302-70-93 05:40:00* Test Item Value Reference Range Interpretation Comments Platelet Morphology Comment (test code = 06700-8) NORMAL [facility] hypochromia detection by light mhcnreydxt1617-93-53 05:40:00* Test Item Value Reference Range Interpretation Comments Hypochromasia (test code = 728-6) SLIGHT [facility] anisocytosis detection by light ekwywbxhuz4019-82-15 05:40:00* Test Item Value Reference Range Interpretation Comments Anisocytosis (test code = 702-1) MODERATE [facility] target cells detection by light fncyccmlva3597-55-21 05:40:00* Test Item Value Reference Range Interpretation Comments Target Cells (test code = 50972-9) FEW [facility] ArlingtonBlood ovalocytes detection by light ebmtaafegf8606-36-03 05:40:00* Test Item Value Reference Range Interpretation Comments Ovalocytes (test code = 774-0) FEW [facility] ArlingtonRBC efztyuxsel4519-13-29 05:40:00* Test Item Value Reference Range Interpretation Comments Red Cell Morphology Comment (test code = 6742-1) [facility]NORMAL [facility] sodium measurement (moles/volume)2020-02-27 05:40:00* Test Item Value Reference Range Interpretation Comments Sodium Level (test code = 2951-2) 141 136-145 [facility] potassium measurement (moles/volume)2020-02-27 05:40:00* Test Item Value Reference Range Interpretation Comments Potassium Level (test code = 2823-3) 4.0 3.5-5.1 [facility] chloride measurement (moles/volume)2020-02-27 05:40:00* Test Item Value Reference Range Interpretation Comments Chloride Level (test code = 2075-0) 109 98-107 [facility] plasma carbon dioxide, total measurement (moles/volume)2020-02-27 05:40:00* Test Item Value Reference Range Interpretation Comments Carbon Dioxide Level (test code = 2028-9) 23 22-29 [facility] plasma anion wlj2533-91-02 05:40:00* Test Item Value Reference Range Interpretation Comments Anion Gap (test code = 83534-7) 13.0 8-16 [facility] urea nitrogen measurement (mass/volume)2020-02-27 05:40:00* Test Item Value Reference Range Interpretation Comments Blood Urea Nitrogen (test code = 3094-0) 9 7-26 [facility] creatinine measurement (mass/volume)2020-02-27 05:40:00* Test Item Value Reference Range Interpretation Comments Creatinine (test code = 2160-0) 1.38 0.72-1.25 [facility] urea nitrogen/creatinine mass wclfx1924-16-87 05:40:00* Test Item Value Reference Range Interpretation Comments BUN/Creatinine Ratio (test code = 3097-3) 7 6-25 [facility] ArlingtonEstimated glomerular filtration rate (GFR) mkmdobzwmhium6410-36-84 05:40:00* Test Item Value Reference Range Interpretation Comments Estimat Glomerular Filtration Rate (test code = 626169153) 57 >60 Ranges were taken from the National Kidney Disease Education Program and the [facility] Kidney Foundation literature.Reference ranges:60 or greater: Mbkvem01-96 ( for 3 consecutive months): Chronic kidney disease 15 or less: Kidney failureTexas Health Heart & Vascular Hospital ArlingtonGlucose mjirubodjof1732-78-71 05:40:00* Test Item Value Reference Range Interpretation Comments Glucose Level (test code = KLE6748) 135 74-118 [facility] plasma calcium measurement (mass/volume)2020-02-27 05:40:00* Test Item Value Reference Range Interpretation Comments Calcium Level (test code = 82168-6) 8.4 8.4-10.2 [facility] total bilirubin measurement (mass/volume)2020-02-27 05:40:00* Test Item Value Reference Range Interpretation Comments Total Bilirubin (test code = 1975-2) 1.1 0.2-1.2 [facility] ArlingtonFluoroscopic procedure less than one hour nklntqox9201-56-37 05:40:00* Test Item Value Reference Range Interpretation Comments Aspartate Amino Transf (AST/SGOT) (test code = Aspartate Amino Transf (AST/SGOT)) 35 5-34 [facility] or plasma alanine aminotransferase measurement (enzymatic activity/volume)2020-02-27 05:40:00* Test Item Value Reference Range Interpretation Comments Alanine Aminotransferase (ALT/SGPT) (test code = 1742-6) 55 0-55 [facility] plasma protein measurement (mass/volume)2020-02-27 05:40:00* Test Item Value Reference Range Interpretation Comments Total Protein (test code = 2885-2) 5.3 6.5-8.1 [facility] albumin measurement (mass/volume)2020-02-27 05:40:00* Test Item Value Reference Range Interpretation Comments Albumin (test code = 1751-7) 2.8 3.5-5.0 [facility] ArlingtonPlasma globulin measurement (mass/volume) 2020-02-27 05:40:00* Test Item Value Reference Range Interpretation Comments Globulin (test code = 89657-1) 2.5 2.3-3.5 [facility] albumin/globulin mass rjecj9520-02-74 05:40:00* Test Item Value Reference Range Interpretation Comments Albumin/Globulin Ratio (test code = 1759-0) 1.1 0.8-2.0 [facility] alkaline phosphatase measurement (enzymatic activity/volume)2020-02-27 05:40:00* Test Item Value Reference Range Interpretation Comments Alkaline Phosphatase (test code = 6768-6) 46 40-150 [facility] or plasma creatine kinase measurement (enzymatic activity/volume)2020-02-27 05:40:00* Test Item Value Reference Range Interpretation Comments Creatine Kinase (test code = 2157-6) 301 30-200 [facility] ArlingtonHEPTOBILIARY W INJUM8873-47-99 21:46:00 [facility] [address] [address] Patient Name: MINE ROUSE MR #: [id number] : 1975 Age/Sex: 44/M Req #: [id number] Adm Physician: NATHAN RAMESH MD Ordered by: ANDREW SIMS MD Report #: [id number] Location: MED/SURG3 [facility]/Bed: 287-1 Procedure: [id number] NM/HEPTOBI LIARY W PHARM Exam Date: 02/25/20 Exam Time: 1845 REPORT STATUS: Signed Hepatobiliar y Scan with Gallbladder Ejection Fraction Clinical information: Abdominal p ain Technique: Following intravenous administration of 6.6 millicuries of T c-99m mebrofenin, dynamic images of the abdomen in the anterior projection wer e obtained through 60 minutes. Sincalide (CCK analog) 1.8 micrograms was ad ministered intravenously over 30 minutes with additional imaging for determina tion of gallbladder ejection fraction. Discussion: Perfusion of the liver i s normal. Extraction of tracer by the liver parenchyma is normal. Tracer bon ears promptly within the biliary tract. The gallbladder begins to fill by 14 minutes post injection of tracer and fills adequately. Tracer is seen in the small bowel by 18 minutes. The gallbladder ejection fraction with sincalide is 2% (normal greater than 40%). Impression: 1. Filling of the gallb ladder excludes acute cystic duct obstruction/acute cholecystitis. 2. The d ecreased gallbladder ejection fraction of 2% supports the clinical diagnosis o f chronic cholecystitis/gallbladder dyskinesia. Signed by: Dr. Letha Lennon M.D. on 02/25/2020 9:48 PM Dictated By: LETHA LENNON MD Electronically Sig juliane By: LETHA LENNON MD on 02/25/202147 Transcribed By: ABIDA on 02/25/20 8 COPY TO: ANDREW SIMS MD Blood poikilocytosis detection by light cottvuuhnf9585-79-94 05:30:00* Test Item Value Reference Range Interpretation Comments Poikilocytosis (test code = 779-9) SLIGHT [facility] lactoferrin lgnevdxik6711-49-08 15:03:00* Test Item Value Reference Range Interpretation Comments Stool Lactoferrin (LAB) (test code = 60939-0) NEGATIVE NEGATIVE Testing on stool aspirate specimens is outside home furnishings sales representative claims since specime n type not validated on this assay.[facility] gastrointestinal hemoglobin mnnopahid4766-90-79 15:03:00* Test Item Value Reference Range Interpretation Comments Stool Occult Blood (test code = 2335-8) POSITIVE NEGATIVE [facility] ArlingtonClostridium difficile A and B toxin assay 2020-02-24 15:03:00* Test Item Value Reference Range Interpretation Comments Clostridium Difficile Toxin A & B (test code = 030558851) NEGATIVE NEGATIVE Testing on stool aspirate specimens is outside home furnishings sales representative claims since specime n type not validated on this assay.[facility] Fluoroscopic procedure less than one hour xymwrghx3109-39-78 05:13:00* Test Item Value Reference Range Interpretation Comments Coronavirus (PCR) (test code = Coronavirus (PCR)) NOT DETECTED NOTD ETECTED SARS-COV-2 (COVID19), HIGHRISK, RT-PCRNegative results do not preclude SARS-CoV- 2 infection and should not be used as the sole basis for patient management deci sions. Negative results must be combined with clinical observations, patient his tory, and epidemiological information. Optimum specimen types and timing for pea k viral levels during infections caused by SARS-CoV-2 have not been determined. Collection of multiple specimens ot types of specimens may be necessary to detec t virus. Improper specimen collection and handling, sequence variability under p rimers/probes, or organism present below the limit of detection may lead to fals e negative results. Positive and negative predictive values of testing are highl y dependent on prevalance. False negative test results are more likely when prev alence is high.The expected result is negative (not detected).The SARS-CoV-2 braden t is intended for the qualitative detection of nucleic acid from SARS-CoV-2 in n asopharyngeal and oropharyngeal swab samples from patients who meet COVID-19 cli nical and or epidemiological criteria. For lower respiratory tract specimens, th e assay is submitted for authoriztion by FDA under an Emergency Use Authorizatio n (EUA). Testing methodology is real time RT-PCR. If received as separate collec tion devices, nasopharygeal and oropharyngeal specimens are combined for analysi s. Additional specimens may be split to a separate accession for analysi and rep orting as this test includes a single unit of service.Test results must be corre lated with clinical presentation and evaluated in the context of other laborator y and epidemiologic data. Test performance can be affected because the epidemiol ogy and clinical spectrum of infection caused by SARS-CoV-2 is not fully known. For example, the optimum types of specimens to collect and when during the cours e of infection these specimens are most likely to contain detectable viral RNA m ay not be known.This test has not been Food and Drug Administration (FDA) cleare d or approved and has been authorized by FDA under an Emergency Use Authorizatio n (EUA). The test is only authorized for the duration of the declaration that ci rcumstances exist justifying the authorization of emergency use of in vitro diag nostic tests for detection and/or diagnosis of SARS-CoV-2 under section 564(b) o f the Act, 21 U.S.C. section 360bbb-3(b)(1), unless the authorization is termina chente or revoked sooner. [facility] are certified under the C linical Laboratory Improvement Amendments of 1988 (CLIA), 42 U.S.C. section 263a , to perform high complexity tests.Testing performed by [facility] [id number] [place], [place] [phone] Director: Hipolito Bruno M.D.CLIA # [id number] [facility] [id number] 04:52:00 [place] [address] Patient Name: MINE ROUSE MR #: [id number] : 1975 Age/Sex: 44/M Req #: [id number] Adm Physician: NATHAN RAMESH MD Ordered by: SHUKRI JENKINS DO Report #: [id number] Location: MED/SURG3 Room/Bed: [facility] Procedure: [id number] CT/CT ABDOMEN/P BRIA W Exam Date: 02/24/20 Exam Time: 0423 REPORT STATUS: Signed CT Abdomen And Pel vis with Intravenous Contrast INDICATION: Diarrhea LLQ pain TECHN IQUE: Thin collimation axial images obtained from the diaphragm to the level o f the pubic symphysis following the uneventful administration of 100 cc of lo w osmolar, nonionic intravenous contrast. Oral contrast was also administered. Dose reduction techniques used: Automated exposure control, adjustment of the mAs and/or kVp according to patient size, standardized low-dose protocol, and/or iterative reconstruction technique. RADIATION DOSE: Total D LP: 469.15 mGy*cm Estimated effective dose: (DLP x 0.015 x size facto r) mSv CTDIvol has been reviewed. It is below the limits set by the Radia tion Protocol Committee (RPC). COMPARISON: CT abdomen/pelvis 02/02/2020. ABDOMEN FINDINGS: Lung Bases: Bibasilar groundglass airspace opacities have increased in the interim. The heart is normal in size. Small amount of e nteric contrast in the distal esophagus. Liver: Normal attenuation. No e vidence for mass. Gallbladder: Present and contracted. No biliary ductal di latation. Pancreas: Normal attenuation without mass or ductal dilatation. Spleen: Absent. Stable appearing splenule in the left upper quadrant. A drenal Glands: No evidence for mass. Kidneys: Right: Normal enhanceme nt. No soft tissue mass. No hydronephrosis. Left: Normal enhancement. N o soft tissue mass. No hydronephrosis. Lymph Nodes: No lymphadenopathy. Aorta: Normal in diameter PELVIS FINDINGS: Bowel: Stomach: N ormal. Small Bowel: Enteric contrast present throughout. No mural thickening o r dilatation. Large Bowel: Enteric contrast present. No mural thickening o r dilatation. Appendix: Normal. Bladder: Normal. Peritoneum/retrop eritoneum: No free fluid or fluid collection.. Bones: Minimal degenerative changes of the spine. No focal osseous lesions. IMPRESSION: 1. Incre asing pulmonary groundglass airspace opacities. This may be due to atypical pn eumonia or reactive airways disease. 2. No evidence for bowel obstruction or inflammation. Normal appendix. Small amount of enteric contrast in the di stal esophagus may be secondary to reflux. Signed by: Dr. Mervat Wilson MD on 02/24/2020 4:57 AM Dictated By: MERVAT WILSON MD Electronicall y Signed By: MERVAT WILSON MD on 02/24/20456 Transcribed By: ABIDA on 0 02/24/20456 COPY TO: GREGORYSHUKRI Fluoroscopic procedure less than one hour jgcgmfnx2344-07-84 03:30:00* Test Item Value Reference Range Interpretation Comments Lactic Acid Level (test code = Lactic Acid Level) 1.0 0.5- 2.0 [facility]Blood udndfwk2608-27-40 03:30:00* Test Item Value Reference Range Interpretation Comments Blood Culture (test code = 77608561) NO GROWTH AFTER 72 HOURS [facility] ArlingtonUrine color iaimmpqirzrzd6705-06-73 02:23:00* Test Item Value Reference Range Interpretation Comments Urine Color (test code = 5778-6) YELLOW YELLOW [facility] ArlingtonUrine icpyfug8708-48-16 02:23:00* Test Item Value Reference Range Interpretation Comments Urine Clarity (test code = 66406-4) CLOUDY CLEAR [facility] Urine by Test strip 2020-02-24 02:23:00* Test Item Value Reference Range Interpretation Comments Urine Specific [place] (test code = 5811-5) 1.020 1.010-1.02 5 [facility] ArlingtonU[facility] pH measurement by automated test nzzgy9837-33-75 02:23:00* Test Item Value Reference Range Interpretation Comments Urine pH (test code = 68396-1) 8.5 5-7 [facility] ArlingtonUrine leukocyte esterase detection by vivaqria9508-89-77 02:23:00* Test Item Value Reference Range Interpretation Comments Urine Leukocyte Esterase (test code = 5799-2) NEGATIVE NEGATIVE [facility] ArlingtonUrine nitrite fbhcldtds6399-90-84 02:23:00* Test Item Value Reference Range Interpretation Comments Urine Nitrite (test code = 97781-8) NEGATIVE NEGATIVE [facility] ArlingtonUrine protein measurement by test strip (mass/volume)2020-02-24 02:23:00* Test Item Value Reference Range Interpretation Comments Urine Protein (test code = 5804-0) TRACE NEGATIVE [facility] ArlingtonUrine glucose naaefoptq2426-21-25 02:23:00* Test Item Value Reference Range Interpretation Comments Urine Glucose (UA) (test code = 2349-9) 1+ NEGATIVE [facility] ArlingtonUrine ketones detection by automated test tboab6559-01-63 02:23:00* Test Item Value Reference Range Interpretation Comments Urine Ketones (test code = 20663-9) NEGATIVE NEGATIVE [facility] ArlingtonUrine urobilinogen measurement by test strip (mass/volume)2020-02-24 02:23:00* Test Item Value Reference Range Interpretation Comments Urine Urobilinogen (test code = 80504-1) 0.2 0.2-1 [facility] ArlingtonUrine total bilirubin measurement (mass/volume)2020-02-24 02:23:00* Test Item Value Reference Range Interpretation Comments Urine Bilirubin (test code = 1978-6) NEGATIVE NEGATIVE [facility] ArlingtonUrine erythrocytes zvwylyyny8006-99-11 02:23:00* Test Item Value Reference Range Interpretation Comments Urine Blood (test code = 96297-2) NEGATIVE NEGATIVE [facility] ArlingtonAutomated urine sediment leukocyte count by microscopy (number/high power field)2020-02-24 02:23:00* Test Item Value Reference Range Interpretation Comments Urine WBC (test code = 5821-4) 0-5 0-5 [facility] ArlingtonErythrocytes detection in urine sediment by light qmrtfgrqge7357-80-50 02:23:00* Test Item Value Reference Range Interpretation Comments Urine RBC (test code = 84577-4) 0-5 0-5 [facility] ArlingtonBacteria detection in urine sediment by light qpbffarlbk3679-65-18 02:23:00* Test Item Value Reference Range Interpretation Comments Urine Bacteria (test code = 79260-1) MANY NONE [facility] ArlingtonEpithelial cells detection in urine sediment by light ceyrmavozn3172-73-09 02:23:00* Test Item Value Reference Range Interpretation Comments Urine Epithelial Cells (test code = 82588-2) FEW NONE [facility] ArlingtonAmorphous sediment detection in urine sediment by light gmnouvzbcf8955-97-27 02:23:00* Test Item Value Reference Range Interpretation Comments Urine Amorphous Sediment (test code = 8246-1) MANY FEW [facility] ArlingtonCoarse granular casts detection in urine sediment by light xidhrnbqvv5167-54-75 02:23:00* Test Item Value Reference Range Interpretation Comments Urine Coarse Granular Casts (test code = 54703-0) 1-5 >0 [facility] ArlingtonBNP Xte-iBgh3808-38-08 02:23:00* Test Item Value Reference Range Interpretation Comments B-Type Natriuretic Peptide (test code = 11568-4) < 10.0 0-100 [facility]view[facility]um or plasma creatine kinase MB measurement (mass/volume)2020-02-24 02:23:00* Test Item Value Reference Range Interpretation Comments Creatine Kinase MB (test code = 53533-8) 1.80 0-5.0 [facility] ArlingtonTroponin I measurement by highly sensitive enzyme klwycyblxit1774-99-78 02:23:00* Test Item Value Reference Range Interpretation Comments Troponin I (test code = 34292-4) < 0.001 0-0.300 [facility]view[facility]um or plasma amylase measurement (enzymatic activity/volume)2020-02-24 02:23:00* Test Item Value Reference Range Interpretation Comments Amylase Level (test code = 1798-8) 84 25-125 [facility]viewerum or plasma lipase measurement (enzymatic activity/volume)2020-02-24 02:23:00* Test Item Value Reference Range Interpretation Comments Lipase (test code = 3040-3) 94 8-78 [facility] ArlingtonCT ABDOMEN/PELVIS [id number] 16:06:00 [facility] [address] [place] [address] Patient Name: MINE ROUSE MR #: [id number] : 1975 Age/Sex: 44/M Req #: [id number] Adm Physician: Ordered by: SHUKRI CACERES NP eport #: [id number] Location: ER Room /Bed: Procedure: [id number] CT/CT ABDOME N/PELVIS WO Exam Date: 02/02/20 Exam Time: 1450 REPORT STATUS: Signed EXAM: CT Abdom en and Pelvis WITHOUT contrast INDICATION: Nausea, abdominal pain. COMPARISON: None. TECHNIQUE: Abdomen and pelvis were scanned utilizing a mu ltidetector helical scanner from the lung base to the pubic symphysis without administration of IV contrast. Absence of intravenous contrast decreases sensi tivity for detection of focal lesions and vascular pathology. Coronal and sagi ttal reformations were obtained. Stone protocol is performed. IV CONTRAST: None. ORAL CONTRAST: Gastrografin RADIATI ON DOSE: Total DLP: 470.9 mGy*cm Estimated effective dose: (DLP x 0.015 x size factor) mSv COMPLICATIONS: None FINDINGS: LINES and TUBES: None. LOWER THORAX: There are mild patchy opacities withi n the bilateral lower lobes. HEPATOBILIARY: No focal hepatic lesions . No biliary ductal dilation. GALLBLADDER: No radio-opaque stones or sludg e. No wall thickening. 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 PANCREAS: No focal masses or ductal dilatation. ADRENALS: No adrenal nodules KIDNEYS/URETERS: No hydronephrosis. No cy stic or solid mass lesions. No stones. GI TRACT: No evidence of bowel ob struction. There is wall thickening within the duodenum and jejunal loops. PELVIC ORGANS/BLADDER: Unremarkable. LYMPH NODES: No lymphadenopathy. VESSELS: Unremarkable. PERITONEUM / RETROPERITONEUM: No free air or fluid . BONES: Unremarkable. SOFT TISSUES: Unremarkable. IM PRESSION: Findings compatible with enteritis, which may be infectious or infl ammatory. Normal appendix. No evidence of nephrolithiasis. Mild patchy opacities in the the bilateral lower lobes likely atelectasis, although infec tion can have a similar appearance in the appropriate clinical setting. S igned by: Dr. Chavo Can MD on 02/02/2020 4:13 PM Dictated By: CHAVO CAN MD 12 Transcribed By: Javan TUTTLE on 02/02/201612 COPY TO: SHUKRI CACERES NP Blood leukocytes automated count (number/volume)2020-02-02 13:38:00* Test Item Value Reference Range Interpretation Comments White Blood Count (test code = 6690-2) 11.35 4.8-10.8 [facility] ArlingtonBlood erythrocytes automated count (number/volume)2020-02-02 13:38:00* Test Item Value Reference Range Interpretation Comments Red Blood Count (test code = 789-8) 6.36 4.3-5.7 [facility] ArlingtonBlood hemoglobin measurement (moles/volume)2020-02-02 13:38:00* Test Item Value Reference Range Interpretation Comments Hemoglobin (test code = 90911-6) 17.1 14.0-18.0 [facility] ArlingtonAutomated blood hematocrit (volume fraction)2020-02-02 13:38:00* Test Item Value Reference Range Interpretation Comments Hematocrit (test code = 4544-3) 50.0 38.2-49.6 [facility] ArlingtonAutomated erythrocyte mean corpuscular dlxcfz8313-10-68 13:38:00* Test Item Value Reference Range Interpretation Comments Mean Corpuscular Volume (test code = 787-2) 78.6 81-99 [facility] ArlingtonAutomated erythrocyte mean corpuscular hemoglobin (mass per erythrocyte)2020-02-02 13:38:00* Test Item Value Reference Range Interpretation Comments Mean Corpuscular Hemoglobin (test code = 785-6) 26.9 28-32 [facility] ArlingtonAutomated erythrocyte mean corpuscular hemoglobin concentration measurement (mass/volume)2020-02-02 13:38:00* Test Item Value Reference Range Interpretation Comments Mean Corpuscular Hemoglobin Concent (test code = 786-4) 34.2 31-35 [facility] ArlingtonRDW PohIm-Cab5453-37-17 13:38:00* Test Item Value Reference Range Interpretation Comments Red Cell Distribution Width (test code = 90996-9) 22.7 11.7 -14.4 [facility] ArlingtonAutomated blood platelet count (count/volume)2020-02-02 13:38:00* Test Item Value Reference Range Interpretation Comments Platelet Count (test code = 777-3) 573 140-360 [facility] ArlingtonAutomated blood segmented neutrophil count as percentage of total nhcwvfmpie8975-97-62 13:38:00* Test Item Value Reference Range Interpretation Comments Neutrophils (%) (Auto) (test code = 17421-0) 44.8 38.7-80.0 [facility] ArlingtonAutomated blood lymphocyte count as percentage ot total gjxvhaiwdw2660-68-45 13:38:00* Test Item Value Reference Range Interpretation Comments Lymphocytes (%) (Auto) (test code = 736-9) 38.6 18.0-39.1 [facility] ArlingtonAutomated blood monocyte count as percentage of total bxzxvkfjdw5617-97-53 13:38:00* Test Item Value Reference Range Interpretation Comments Monocytes (%) (Auto) (test code = 5905-5) 13.3 4.4-11.3 [facility] ArlingtonAutomated blood eosinophil count as percentage of total xiqoqmyjhb5910-14-32 13:38:00* Test Item Value Reference Range Interpretation Comments Eosinophils (%) (Auto) (test code = 713-8) 2.0 0.0-6.0 [facility] ArlingtonAutomated blood basophil count as percentage of total gcngdyvmdt4504-59-42 13:38:00* Test Item Value Reference Range Interpretation Comments Basophils (%) (Auto) (test code = 706-2) 0.9 0.0-1.0 [facility] ArlingtonFluoroscopic procedure less than one hour pvkjxelr8240-64-61 13:38:00* Test Item Value Reference Range Interpretation Comments IM GRANULOCYTES % (test code = IM GRANULOCYTES %) 0.4 0.0- 1.0 [facility] ArlingtonAutomated blood neutrophil count 2020-02-02 13:38:00* Test Item Value Reference Range Interpretation Comments Neutrophils # (Auto) (test code = 751-8) 5.1 2.1-6.9 [facility] ArlingtonBlood lymphocytes count (number/volume) 2020-02-02 13:38:00* Test Item Value Reference Range Interpretation Comments Lymphocytes # (Auto) (test code = 20580-6) 4.4 1.0-3.2 [facility] ArlingtonBlood monocytes automated count (number/volume)2020-02-02 13:38:00* Test Item Value Reference Range Interpretation Comments Monocytes # (Auto) (test code = 742-7) 1.5 0.2-0.8 [facility] ArlingtonAutomated blood eosinophil count 2020-02-02 13:38:00* Test Item Value Reference Range Interpretation Comments Eosinophils # (Auto) (test code = 711-2) 0.2 0.0-0.4 [facility] ArlingtonAutomated blood basophil count (count/volume)2020-02-02 13:38:00* Test Item Value Reference Range Interpretation Comments Basophils # (Auto) (test code = 704-7) 0.1 0.0-0.1 [facility] ArlingtonFluoroscopic procedure less than one hour mdypsxuz8712-75-93 13:38:00* Test Item Value Reference Range Interpretation Comments Absolute Immature Granulocyte (auto (braden t code = Absolute Immature Granulocyte (auto) 0.05 0-0.1 [facility] ArlingtonUrine color kkcvavhddowja7093-40-52 13:38:00* Test Item Value Reference Range Interpretation Comments Urine Color (test code = 5778-6) YELLOW YELLOW [facility] ArlingtonUrine lueyukf9081-73-13 13:38:00* Test Item Value Reference Range Interpretation Comments Urine Clarity (test code = 64894-7) CLEAR CLEAR [facility] gravity of Urine by Test strip 2020-02-02 13:38:00* Test Item Value Reference Range Interpretation Comments Urine Specific [place] (test code = 5811-5) 1.020 1.010-1.02 5 [facility] ArlingtonUrine pH measurement by automated test rfnos0237-31-26 13:38:00* Test Item Value Reference Range Interpretation Comments Urine pH (test code = 95710-1) 8.5 5-7 [facility] ArlingtonUrine leukocyte esterase detection by eedmikjw8256-05-16 13:38:00* Test Item Value Reference Range Interpretation Comments Urine Leukocyte Esterase (test code = 5799-2) NEGATIVE NEGATIVE [facility] ArlingtonUrine nitrite rlnijorre7215-26-23 13:38:00* Test Item Value Reference Range Interpretation Comments Urine Nitrite (test code = 37758-4) NEGATIVE NEGATIVE [facility] ArlingtonUrine protein measurement by test strip (mass/volume)2020-02-02 13:38:00* Test Item Value Reference Range Interpretation Comments Urine Protein (test code = 5804-0) NEGATIVE NEGATIVE [facility] ArlingtonUrine glucose pnvfyzgqf1001-07-86 13:38:00* Test Item Value Reference Range Interpretation Comments Urine Glucose (UA) (test code = 2349-9) NEGATIVE NEGATIVE [facility] ArlingtonUrine ketones detection by automated test iubfo5451-90-24 13:38:00* Test Item Value Reference Range Interpretation Comments Urine Ketones (test code = 25829-0) NEGATIVE NEGATIVE [facility] ArlingtonUrine urobilinogen measurement by test strip (mass/volume)2020-02-02 13:38:00* Test Item Value Reference Range Interpretation Comments Urine Urobilinogen (test code = 25841-5) 0.2 0.2-1 [facility] ArlingtonUrine total bilirubin measurement (mass/volume)2020-02-02 13:38:00* Test Item Value Reference Range Interpretation Comments Urine Bilirubin (test code = 1978-6) NEGATIVE NEGATIVE [facility] ArlingtonUrine erythrocytes tbfvpndgk2028-53-73 13:38:00* Test Item Value Reference Range Interpretation Comments Urine Blood (test code = 34608-2) TRACE NEGATIVE [facility] ArlingtonAutomated urine sediment leukocyte count by microscopy (number/high power field)2020-02-02 13:38:00* Test Item Value Reference Range Interpretation Comments Urine WBC (test code = 5821-4) 6-10 0-5 [facility] ArlingtonErythrocytes detection in urine sediment by light pccjcdfntm1700-75-80 13:38:00* Test Item Value Reference Range Interpretation Comments Urine RBC (test code = 00370-5) 6-10 0-5 [facility] ArlingtonBacteria detection in urine sediment by light kvyxmeadku9473-96-61 13:38:00* Test Item Value Reference Range Interpretation Comments Urine Bacteria (test code = 02462-0) FEW NONE [facility] ArlingtonEpithelial cells detection in urine sediment by light prqftyguuz2284-97-85 13:38:00* Test Item Value Reference Range Interpretation Comments Urine Epithelial Cells (test code = 16443-9) FEW NONE [facility]viewerum or plasma sodium measurement (moles/volume)2020-02-02 13:38:00* Test Item Value Reference Range Interpretation Comments Sodium Level (test code = 2951-2) 136 136-145 [facility]viewerum or plasma potassium measurement (moles/volume)2020-02-02 13:38:00* Test Item Value Reference Range Interpretation Comments Potassium Level (test code = 2823-3) 4.4 3.5-5.1 [facility]viewerum or plasma chloride measurement (moles/volume)2020-02-02 13:38:00* Test Item Value Reference Range Interpretation Comments Chloride Level (test code = 2075-0) 104 98-107 [facility]viewerum or plasma carbon dioxide, total measurement (moles/volume)2020-02-02 13:38:00* Test Item Value Reference Range Interpretation Comments Carbon Dioxide Level (test code = 2028-9) 23 22-29 [facility]viewerum or plasma anion ebm9513-31-54 13:38:00* Test Item Value Reference Range Interpretation Comments Anion Gap (test code = 76463-9) 13.4 8-16 [facility]viewerum or plasma urea nitrogen measurement (mass/volume)2020-02-02 13:38:00* Test Item Value Reference Range Interpretation Comments Blood Urea Nitrogen (test code = 3094-0) 7 7-26 [facility]viewerum or plasma creatinine measurement (mass/volume)2020-02-02 13:38:00* Test Item Value Reference Range Interpretation Comments Creatinine (test code = 2160-0) 1.31 0.72-1.25 [facility]viewerum or plasma urea nitrogen/creatinine mass excjd2011-69-83 13:38:00* Test Item Value Reference Range Interpretation Comments BUN/Creatinine Ratio (test code = 3097-3) 5 6-25 [facility] ArlingtonEstimated glomerular filtration rate (GFR) bwsvncaselfrl4972-49-78 13:38:00* Test Item Value Reference Range Interpretation Comments Estimat Glomerular Filtration Rate (test code = 556589313) 60 >60 Ranges were taken from the National Kidney Disease Education Program and the [facility] Kidney Foundation literature.Reference ranges:60 or greater: Fgorse12-41 ( for 3 consecutive months): Chronic kidney disease 15 or less: Kidney failureTexas Health Heart & Vascular Hospital ArlingtonGlucose ftrylqytkjk7664-05-93 13:38:00* Test Item Value Reference Range Interpretation Comments Glucose Level (test code = UQT6297) 108 74-118 [facility]viewerum or plasma calcium measurement (mass/volume)2020-02-02 13:38:00* Test Item Value Reference Range Interpretation Comments Calcium Level (test code = 69783-6) 10.0 8.4-10.2 [facility] ArlingtonFluoroscopic procedure less than one hour ugrdrvzj9344-66-46 13:38:00* Test Item Value Reference Range Interpretation Comments Lactic Acid Level (test code = Lactic Acid Level) 1.5 0.5- 2.0 [facility]viewerum or plasma total bilirubin measurement (mass/volume)2020-02-02 13:38:00* Test Item Value Reference Range Interpretation Comments Total Bilirubin (test code = 1975-2) 0.9 0.2-1.2 [facility] ArlingtonFluoroscopic procedure less than one hour azfnanah7395-33-94 13:38:00* Test Item Value Reference Range Interpretation Comments Aspartate Amino Transf (AST/SGOT) (test code = Aspartate Amino Transf (AST/SGOT)) 40 5-34 [facility]viewerum or plasma alanine aminotransferase measurement (enzymatic activity/volume)2020-02-02 13:38:00* Test Item Value Reference Range Interpretation Comments Alanine Aminotransferase (ALT/SGPT) (test code = 1742-6) 57 0-55 [facility]viewerum or plasma protein measurement (mass/volume)2020-02-02 13:38:00* Test Item Value Reference Range Interpretation Comments Total Protein (test code = 2885-2) 7.0 6.5-8.1 [facility]viewerum or plasma albumin measurement (mass/volume)2020-02-02 13:38:00* Test Item Value Reference Range Interpretation Comments Albumin (test code = 1751-7) 3.6 3.5-5.0 [facility] ArlingtonPlasma globulin measurement (mass/volume) 2020-02-02 13:38:00* Test Item Value Reference Range Interpretation Comments Globulin (test code = 58629-1) 3.4 2.3-3.5 [facility]erum or plasma albumin/globulin mass lmrff8965-99-52 13:38:00* Test Item Value Reference Range Interpretation Comments Albumin/Globulin Ratio (test code = 1759-0) 1.1 0.8-2.0 [facility]viewerum or plasma alkaline phosphatase measurement (enzymatic activity/volume)2020-02-02 13:38:00* Test Item Value Reference Range Interpretation Comments Alkaline Phosphatase (test code = 6768-6) 53 40-150 [facility] ArlingtonTroponin I measurement by highly sensitive enzyme dqybdrqodbg1340-09-00 13:38:00* Test Item Value Reference Range Interpretation Comments Troponin I (test code = 53842-2) < 0.001 0-0.300 [facility]viewerum or plasma amylase measurement (enzymatic activity/volume)2020-02-02 13:38:00* Test Item Value Reference Range Interpretation Comments Amylase Level (test code = 1798-8) 75 25-125 [facility] lipase measurement (enzymatic activity/volume)2020-02-02 13:38:00* Test Item Value Reference Range Interpretation Comments Lipase (test code = 3040-3) 63 8-78 [facility] opiates screening xlab8556-56-07 13:31:00* Test Item Value Reference Range Interpretation Comments Urine Opiates Screen (test code = 23416-0) NEGATIVE NEGATIVE ALL TESTS PERFORMED MANUALLY ON [employer] TOX/SEE TESTTexas [facility] ArlingtonBarbiturates screen, skzek0398-80-00 13:31:00* Test Item Value Reference Range Interpretation Comments Urine Barbiturates Screen (test code = 808584284) NEGATIVE NEGA TIVE [facility] Arlington[facility] phencyclidine detection by screening kdhwyp6382-59-50 13:31:00* Test Item Value Reference Range Interpretation Comments Urine Phencyclidine Screen (test code = 61982-0) NEGATIVE NEGAT NIKOLE [facility] ArlingtonU[facility] amphetamines detection by screen method > 1000 ng/gF4293-28-20 13:31:00* Test Item Value Reference Range Interpretation Comments Urine Amphetamines Screen (test code = 27609-3) NEGATIVE NEGATI VE [facility] ArlingtonFluoroscopic procedure less than one hour xbjixgjm8268-44-28 13:31:00* Test Item Value Reference Range Interpretation Comments Urine Methamphetamines Screen (test code = Urine Metha mphetamines Screen) NEGATIVE NEGATIVE [facility] Arlington[facility] benzodiazepines detection by screening aamdwz9656-23-21 13:31:00* Test Item Value Reference Range Interpretation Comments Urine Benzodiazepines Screen (test code = 59787-7) NEGATIVE NEG ATIVE [facility] cocaine measurement (mass/volume) 2020-02-02 13:31:00* Test Item Value Reference Range Interpretation Comments Urine Cocaine Screen (test code = 3398-5) NEGATIVE NEGATIVE [facility] Arlington[facility] cannabinoids detection by screening jnuwbn2215-62-37 13:31:00* Test Item Value Reference Range Interpretation Comments Urine Cannabinoids Screen (test code = 67289-2) NEGATIVE NEGATI VE THESE RESULTS ARE FOR MEDICAL TREATMENT ONLYTHIS REPORT CONTAINS UNCONFIR MED SCREENING RESULTS*POSITIVE RESULTS WILL BE CONFIRMED BY REFERENCE LAB UPON R EQUEST CUT-OFFDRUG CLASS CONCENTRATION ng/mLAmphetamines 1000Methamphetamines 1000Cocaine 300Opiate 300Phencyc lidine 25Cannabinoid 50Barbiturates 300Benzodiazepine 300Methadone 300[facility] cehlwa5187-44-64 13:31:00* Test Item Value Reference Range Interpretation Comments Urine Methadone Screen (test code = 05001-4) NEGATIVE NEGATIVE THESE RESULTS ARE FOR MEDICAL TREATMENT ONLYTHIS REPORT CONTAINS UNCONFIR MED SCREENING RESULTS*POSITIVE RESULTS WILL BE CONFIRMED BY REFERENCE LAB UPON R EQUEST CUT-OFFDRUG CLASS CONCENTRATION ng/mLAmphetamines 1000Methamphetamines 1000Cocaine Metabolite 300Opiate 300Phencyc lidine 25Cannabinoid 50Barbiturates 300Benzodiazepine 300Methadone 300[facility] ABD PELVIS W/O [id number] 16:37:00 Name: MINE ROUSE [facility] : 1975 Age/S: 44 / M [address] [facility] Unit #: [id number] [place]: [place] [address] Phys: Henrry Khanna DO Acct: [id number] Di s Date: Status: REG ER PHONE #: [phone] Exam Date: 01/30/2020 1630 FAX #: [phone] Reason: abd pain/rectal bleeding/recent ileus EXAMS: CPT CODE: [id number] CT ABD PELVIS W/O CONT 42304 REASON FOR EXAM: abd pain/rectal bleeding/recent ileus EXAM ORDER DATE: 01/30/2020 2 :17 PM Ordering: Henrry Khanna DO Attending:Henrry Khanna DO Location:[facility] PROCEDURE: - CT ABD PELVIS W/O CONT COMPARISON: 01/25/2020 FINDINGS: CT images of the abdomen and p bria were obtained without IV and without oral contrast at 5mm. Dose modu lation, iterative reconstruction, and/or weight based adjustment of the MA /KV was utilized to reduce the radiation dose to as low as reasonably achievable. The liver, spleen, pancreas are grossly within n ormal limits. The gall bladder is unremarkable by CT. The k idneys are within normal limits. The urinary bladder is unremarkable. The colon, small bowel, and stomach are within normal limits without evidence of obstruction. The appendix is unremarkable No ev idence of free air or free fluid. The uterus is unremarkable. IM PRESSION: No acute findings in the abdomen. at 1637 Reported and signed by: Paramjit Gaspar M.D. CC: Henrry Khanna DO Technologist:Yahaira Alford RT(R) CTDI: DLP: Trnsc b Date/Time: 01/30/2020 (776) Ag Orig Print D/T: S: 01/30/2020 (2661) PAGE 1 Signed Report BASIC METABOLIC [id number] 16:17:00* Test Item Value Reference Range Interpretation [...] CA) 8.9 mg/dL 8.5-10.1 N HEPATIC FUNCTION [id number] 16:17:00* Test Item Value Reference Range Interpretation [...] reference range due to change in reagent. RDDVJH2642-88-51 16:17:00* Test Item Value Reference Range Interpretation Comments LIPASE (test code = LIP) 227 U/L 73.0-393.0 N BASIC METABOLIC QPMJU4187-42-12 16:10:00* Test Item Value Reference Range Interpretation [...] code = CA) mg/dL 8.5-10.1 HEPATIC FUNCTION [id number] 16:10:00* Test Item Value Reference Range Interpretation [...] TOTAL (test code = ALKP) IUnit/L 45-117 JWUQNF1212-56-01 16:10:00* Test Item Value Reference Range Interpretation Comments LIPASE (test code = LIP) U/L 73.0-393.0 CBC W/O AJQE9092-06-08 16:03:00* Test Item Value Reference Range Interpretation [...] MPV) 10.4 fL 6.7-11.0 N CBC W/O [id number] 16:01:00* Test Item Value Reference Range Interpretation [...] code = MPV) fL 6.7-11.0 BASIC METABOLIC [id number] 04:52:00* Test Item Value Reference Range Interpretation [...] CA) 8.0 mg/dL 8.5-10.1 L BASIC METABOLIC IHGBS4630-34-17 04:52:00* Test Item Value Reference Range Interpretation [...] CA) 8.0 mg/dL 8.5-10.1 L CBC W/AUTO [id number] 04:50:00* Test Item Value Reference Range Interpretation [...] = MDIFF) NO, ONLY SCAN NEEDED DIFFERENTIAL [id number] 04:50:00* Test Item Value Reference Range Interpretation [...] MORPHOLOGY (test code = PLTMORPH) NORMAL LACTIC [id number] 04:39:00* Test Item Value Reference Range Interpretation Comments LACTIC ACID (test code = LACT) 0.7 mmol/L 0.4-1.9 N CBC W/AUTO [id number] 04:26:00* Test Item Value Reference Range Interpretation [...] = MDIFF) NO, ONLY SCAN NEEDED DIFFERENTIAL [id number] 04:26:00* Test Item Value Reference Range Interpretation Comments STAIN ACCEPTABILITY (test code = STN ACCEPTABLE) CABOT RINGS (test code = CAB) MORPHOLOGY COMMENT (test code = MOC) PLATELET ESTIMATE (test code = PLTEST) PLATELET MORPHOLOGY (test code = PLTMORPH) CBC W/AUTO [id number] 04:26:00* Test Item Value Reference Range Interpretation [...] = MDIFF) NO, ONLY SCAN NEEDED DIFFERENTIAL [id number] 04:26:00* Test Item Value Reference Range Interpretation Comments STAIN ACCEPTABILITY (test code = STN ACCEPTABLE) CABOT RINGS (test code = CAB) MORPHOLOGY COMMENT (test code = MOC) PLATELET ESTIMATE (test code = PLTEST) PLATELET MORPHOLOGY (test code = PLTMORPH) CBC W/AUTO [id number] 04:26:00* Test Item Value Reference Range Interpretation [...] = MDIFF) NO, ONLY SCAN NEEDED DIFFERENTIAL [id number] 04:26:00* Test Item Value Reference Range Interpretation Comments STAIN ACCEPTABILITY (test code = STN ACCEPTABLE) MORPHOLOGY COMMENT (test code = MOC) PLATELET ESTIMATE (test code = PLTEST) PLATELET MORPHOLOGY (test code = PLTMORPH) CBC W/AUTO [id number] 04:26:00* Test Item Value Reference Range Interpretation [...] = MDIFF) NO, ONLY SCAN NEEDED DIFFERENTIAL [id number] 04:26:00* Test Item Value Reference Range Interpretation Comments STAIN ACCEPTABILITY (test code = STN ACCEPTABLE) CABOT RINGS (test code = CAB) MORPHOLOGY COMMENT (test code = MOC) PLATELET ESTIMATE (test code = PLTEST) PLATELET MORPHOLOGY (test code = PLTMORPH) CBC W/AUTO [id number] 04:20:00* Test Item Value Reference Range Interpretation [...] patients history. - CT ABD PELVIS W/O [id number] 21:19:00 Name: MINE ROUSE [facility] : 1975 Age/S: 44 / M [address] [facility] Unit #: [id number] Loc: [place] [address] Phys: Raquel De La Rosa [employer]TER Acct: [id number] Dis Date: Status: REG ER PHONE #: [phone] Exam Date: 01/25/20202107 FAX #: [phone] Reason: abd pain EXAMS: CPT CODE: [id number] CT ABD PELVIS W/O CONT 40903 HISTORY: Abdominal pain TECHNIQUE: 5 mm axial [...] 1 Signed Report (CONTINUED) Name: MINE ROUSE [facility] : 1975 Age/S: 44 / M [address] [facility] Unit #: [id number] Loc: [place] [address] 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 CC: Wily Marquez MD; Raquel De La Rosa NP Technologist:Shaan Kumar, RT(R)(CT) CTDI: DLP: Trnscb Date/Time: 01/25/2020 (2118) AngeliP1 Orig Print D/T: S: 01/25/2020 (2121) PAGE 2 Signed Report BASIC METABOLIC [id number] 20:53:00* Test Item Value Reference Range Interpretation [...] CA) 8.7 mg/dL 8.5-10.1 N HEPATIC FUNCTION [id number] 20:53:00* Test Item Value Reference Range Interpretation [...] code = CK) 743 IUnit/L 26-208 H BCCHNF9280-57-07 20:53:00* Test Item Value Reference Range Interpretation Comments LIPASE (test code = LIP) 159 U/L 73.0-393.0 N HFKKACFC-[id number] 20:53:00* Test Item Value Reference Range Interpretation Comments TROPONIN-I (test code = TROPI) <0.015 ng/mL 0-0.045 N BASIC METABOLIC [id number] 20:27:00* Test Item Value Reference Range Interpretation [...] code = CA) mg/dL 8.5-10.1 HEPATIC FUNCTION [id number] 20:27:00* Test Item Value Reference Range Interpretation [...] (CK) (test code = CK) IUnit/L 26-208 [id number] 20:27:00* Test Item Value Reference Range Interpretation Comments LIPASE (test code = LIP) U/L 73.0-393.0 UEAMFJRT-J9248-30-09 20:27:00* Test Item Value Reference Range Interpretation Comments TROPONIN-I (test code = TROPI) ng/mL 0-0.045 CBC W/O [id number] 20:25:00* Test Item Value Reference Range Interpretation [...] MPV) 9.3 fL 6.7-11.0 N CBC W/O [id number] 20:16:00* Test Item Value Reference Range Interpretation [...] (test code = MPV) fL 6.7-11.0 URINALYSIS PSMKOXLF6738-37-97 19:26:00* Test Item Value Reference Range Interpretation [...] MUCU) FEW #/LPF FEW Urine Source? Clean RqyayYQWCSKMNHLFG3888-26-20 07:11:0012.6[facility] DBZAXKQYXJTM5301-81-15 07:11:75090Gjpunhwn QmakzhrRZYONTKGKVCC1260-23-90 07:11:0011[facility] AkfxdbzHDNXSJHIJIMD2543-13-07 07:11:001.31[facility] ODZWWHHGLFSG8674-20-18 07:11:02743Ionrwdhx SlzgznjHOMWCXXMXCMB4714-38-98 07:11:004.6[facility] SyakxpuAEOLWMKWRMJQ2031-97-27 07:11:87741Rmxuxbol [facility] FCONAAYNZEWD6586-20-88 07:11:0023[facility] DqrqqlqVZISBAVINSPE0691-58-54 07:11:00 8.9[facility] AhnwcczGWLXQBVDBQNW8822-73-10 07:11:0067[facility]annHEMATOLOGY 2019-06-14 07:11:0016.9[facility] MimcpdhISRJZXMJMT4402-22-99 07:11:005.38[facility] IdkjeijRDVCNXLROY2064-71-28 07:11:0014.2[facility] FnlkwraDRSQZOFRXK8993-67-16 07:11:0043.7[facility] FdeejaoGTSXBJYQVL1475-31-12 07:11:0081.3[facility] FCZFKDAKFV2026-72-59 07:11:00* Test Item Value Reference Range Interpretation Comments MCH (test code = MCH) 26.4 pg 27.0-31.0 [facility] EfcmepjKVNLDMIAXV8775-86-29 07:11:0032.5[facility] HermannHEMATOLOGY 2019-06-14 07:11:0017.1[facility] JmnmvlbOGJVEPOBRZ5476-65-82 07:11:59141Eygnxgiu AkaxrooYOQEXOCLMX8420-37-97 07:11:008.0[facility] YyqvfeiXXENXXYYTB9614-03-27 07:11:0056.0[facility] AksxbhqDRKLBXFHLB7227-25-54 07:11:0030.0[facility] YDTSVXNWVG2608-34-28 07:11:009.3[facility] GxhunzrSUDRNABDRO3059-62-10 07:11:003.9 [facility] BsjueqvQTSBSSZFIG2780-33-13 07:11:000.8[facility]annHEMATOLOGY 2019-06-14 07:11:009.4[facility] BvucbxkAPUETBLQOG0431-24-01 07:11:005.0[facility] HrapzeaNUSBPHZKQY3075-37-72 07:11:001.6[facility] AuraumhTOWGDNEMUK9809-30-80 07:11:000.7[facility] BgaidegJUQSXKOLXP1506-24-01 07:11:000.1[facility] HermannCHEM UWFOK6650-80-56 05:15:59400Kjnjezfj HermannCHEM EBXVC6845-14-68 05:15:009 [facility]annCHEM MTQHG2666-18-04 05:15:001.18[facility]annCHEM PANEL 2019-06-13 05:15:20682Gclcrkby HermannCHEM BWQLZ6139-14-18 05:15:004.3[facility] HermannCHEM DLCLF5194-78-56 05:15:26676Cjuviycj HermannCHEM KBIYN6225-25-96 05:15:0024[facility] HermannCHEM RTDAH1299-29-29 05:15:008.8[facility]annCHEM LDQBK7840-00-52 05:15:0011.3[facility] HermannCHEM RAXBA8579-19-98 05:15:0076 [facility]annCHEM PQOEB6233-37-41 05:15:43220Enpgxobn HermannCHEM PANEL 2019-06-13 05:15:009[facility]annCHEM YCCMW9362-56-89 05:15:001.18[facility]annCHEM FJNQD4023-12-25 05:15:88223Fcxlusjq HermannCHEM XGOZE6900-74-68 05:15:004.3[facility] HermannCHEM HEIYB6442-43-56 05:15:53667Crnvbwnf HermannCHEM GKCBE2747-08-31 05:15:0024[facility]annCHEM LSQBN8316-79-66 05:15:008.8 [facility]annCHE[facility] SUWGZ5947-25-36 05:15:006.3[facility]annCHEM PANEL 2019-06-13 05:15:002.6[facility]annCHEM AVXVS7693-44-52 05:15:0056[facility] HermannCHEM MREAG2166-51-43 05:15:0033[facility] HermannCHEM WUVUT8213-26-84 05:15:0057[facility]annCHEM XPXNJ2828-19-50 05:15:000.2[facility]annCHEM LDJDL8651-39-56 05:15:0011.3[facility]annCHEM DIHPI2234-46-52 05:15:00* Test Item Value Reference Range Interpretation Comments B/C Ratio (test code = B/C Ratio) 8 1 6-25 [facility] HermannCHEM LYWKX9293-30-70 05:15:003.7[facility] HermannCHEM PANEL 2019-06-13 05:15:00* Test Item Value Reference Range Interpretation Comments A/G Ratio (test code = A/G Ratio) 0.7 1 0.7-1.6 [facility] HermannCHEM INUMV3370-50-20 05:15:0076[facility]annHEMATOLOGY 2019-06-13 05:15:0018.8[facility] MzznzskOVZOKDXRPI9046-24-50 05:15:004.85[facility] UkfnwbcOEWBASBQCF3478-57-54 05:15:0013.1[facility] EmunugbARVLZAPMDF1358-65-06 05:15:0039.2[facility] ClojlxkKJRZTJYIXS6078-87-36 05:15:0080.8[facility] KDDRPQZETY0443-02-30 05:15:00* Test Item Value Reference Range Interpretation Comments MCH (test code = MCH) 26.9 pg 27.0-31.0 [facility] AczegykRRPAYHHYMS3789-32-22 05:15:0033.3[facility] HermannHEMATOLOGY 2019-06-13 05:15:0016.7[facility] CxdhjenSXRRAERACR6693-66-38 05:15:67173Freirbmq OaamsxkGWMVTMUJIV9655-54-24 05:15:007.5[facility] NpacihxOJRDYQYXZR8144-39-53 20:50:007.4[facility] CbftdzhNUINUUNKPF6544-49-20 20:50:00* Test Item Value Reference Range Interpretation Comments Brenda Tr TND (test code = Vanco Tr TND) 1500 1 [facility] WfjppbtIYMZEKYOIM2871-87-67 19:20:000.9[facility] HermannTOXICOLOGY 2019-06-11 19:20:00* Test Item Value Reference Range Interpretation Comments Brenda Tr TND (test code = Vanco Tr TND) 1330 1 [facility] LgzoycmZIKGBHACZK7673-87-03 09:44:0022.5[facility]annHEMATOLOGY 2019-06-11 09:44:004.92[facility] JoyulsyJCPSUSFABN9551-20-78 09:44:0013.0[facility] XzdmypbCBBFDWDQDZ3498-87-51 09:44:0040.2[facility] SbzjszcUYPWQCDGHB6392-91-07 09:44:0081.5[facility] NzdbhxqWIGHGQKOSU7152-45-30 09:44:00* Test Item Value Reference Range Interpretation Comments MCH (test code = MCH) 26.4 pg 27.0-31.0 [facility] XwjzeedVBULXYRVOC6338-35-19 09:44:0032.4[facility] HermannHEMATOLOGY 2019-06-11 09:44:0016.7[facility] EccvacsECQTFHWXEH8909-36-97 09:44:71286Ygwhctyx KfbyjesAJOYTTAAZJ6106-87-03 09:44:008.1[facility] BhfdvmxGMPEWSIQTW7580-89-14 09:44:00Negative *NA*(06/11/19 4:44 AM)[facility] NkkymegJEPCKEBHZI2699-20-02 09:44:00Negative *NA*(06/11/19 4:44 AM)[facility] CucuglvEWZJXCHUOT9170-02-54 09:44:00Negative *NA*(06/11/19 4:44 AM)[facility] WjgnckhTJEVVJDGMK4777-97-32 09:44:00Negative *NA*(06/11/19 4:44 AM)[facility] ZdialugOIZATNCIBF1042-86-19 09:44:00Negative *NA*(06/11/19 4:44 AM)[facility] HermannDRUG DQXGLK0392-93-42 08:00:00Negative *NA*(06/11/19 3:00 AM)[facility] HermannDRUG DILXLC1225-14-94 08:00:00Negative *NA*(06/11/19 3:00 AM)[facility] HermannDRUG OHQMTD4204-19-96 08:00:00Positive *ABN*(06/11/19 3:00 AM)[facility]annDRUG HKKXEW0902-51-50 08:00:00Negative *NA*(06/11/19 3:00 AM)[facility]annDRUG SWLJSR3547-68-37 08:00:00Negative *NA*(06/11/19 3:00 AM)[facility] HermannDRUG EFSTRC8728-71-01 08:00:00Positive *ABN*(06/11/19 3:00 AM)[facility]annDRUG ODIKPU5438-31-57 08:00:00Negative *NA*(06/11/19 3:00 AM)[facility]annDRUG HMEUGY6606-22-09 08:00:00See Note (06/11/19 3:00 AM)[facility] HermannDRUG GDJJOY4845-66-36 08:00:00 Negative *NA*(06/11/19 3:00 AM)[facility]annDR[facility] IXIFIC5637-97-28 08:00:00 Negative *NA*(06/11/19 3:00 AM)[facility] PENICILLIN:SUSC:PT:ISOLATE:ORDQN:CSP2818-53-17 22:50:00Staphylococcus aureus [facility]annCHEM IJECQ6159-35-93 09:57:001.8[facility] HermannCHEM PANEL 2019-06-10 09:57:001.9[facility] HermannCHEM GPJFS4167-75-44 04:38:000.9[facility] RquapqxGKAXWZKCFV8540-35-68 04:38:00Normal (06/09/19 11:38 PM)[facility] Jonnie BJAKSSJZLE2584-73-53 04:38:00Normal (06/09/19 11:38 PM)[facility] HermannHEMATOLOGY 2019-06-10 04:38:0075.6[facility] QwfuvsgJALTAYBNRS2716-74-39 04:38:0013.6[facility] VvwehjcZSGBZOOJUI6348-33-88 04:38:009.1[facility] QdjcmkzPJVBDKWKWA0972-40-06 04:38:001.4[facility] HbugeddYBZWEFZOGT0554-03-65 04:38:000.3[facility] RPXAZMLFDK1495-28-01 04:38:0018.7[facility] RxouryxKWUKXVQJKG1408-91-35 04:38:00 3.4[facility] ChhnneeHFDTNYCXVZ9121-11-97 04:38:002.2[facility] HermannHEMATOLOGY 2019-06-10 04:38:000.3[facility] XpxsmmtQQOIJUAMPT0652-72-89 04:38:000.1[facility] HermannBLOOD BANK MIECOOG8953-96-38 04:35:00Negative (06/09/19 11:35 PM)[facility]- CT ABD PELVIS W/O WJXP3295-08-19 01:31:00 Name: MINE ROUSE [facility] : 1975 Age/S: 43 / M [address] [facility] Unit #: [id number] Loc: [place] [address] Phys: Raquel De La Rosa NP Acct: [id number] Dis Date: Status: REG ER PHONE #: [phone] Exam Date: 05/24/2019 0111 FAX #: [phone] Reason: ABD PAIN EXAMS: CPT CODE: [id number] CT ABD PELVIS W/O CONT 35867 AFTER HOURS SERVICE ON: 05/24/2019 1:30 AM [...] 1 Signed Report (CONTINUED) Name: MINE ROUSE [facility] : 1975 Age/S: 43 / M [address] [facility] Unit #: [id number] Loc: [place] [address] Phys: Raquel De La Rosa NP ct: [id number] Dis Date: Status: REG ER PHONE #: [phone] Exam Date: 05/24/2019 0111 FAX #: [phone] Reason: ABD PAIN EXAMS: CPT CODE: [id number] ABD PELVIS W/O CONT 27566 <Continued > at 0131 Reported and signed by: Alanna Sprague M.D. CC: Raquel De La Rosa NP; Fatuma Nash MD Technologist:ANJALI WILSON CTDI: DLP: Trnscb Date/Time: 05/24/2019 (130) JamaalMA50 Orig Print D/T: S: 05/24/2019 (134) PAGE 2 Signed Report CBC W/O ZXDZ8009-32-45 01:09:00* Test Item Value Reference Range Interpretation [...] MPV) 9.5 fL 6.7-11.0 N CBC W/O OJOF3092-51-22 01:08:00* Test Item Value Reference Range Interpretation [...] (test code = MPV) fL 6.7-11.0 URINALYSIS PATTNVPG7021-04-50 01:00:00* Test Item Value Reference Range Interpretation [...] AMORU) FEW #/LPF Urine Source? Clean CatchURINALYSIS THYFMKCB7598-78-07 00:51:00* Test Item Value Reference Range Interpretation [...] HPF NONE Urine Source? Clean CatchBASIC METABOLIC CETFQ5890-76-43 00:47:00* Test Item Value Reference Range Interpretation [...] CA) 9.1 mg/dL 8.5-10.1 N HEPATIC FUNCTION RMAVB1540-76-41 00:47:00* Test Item Value Reference Range Interpretation [...] reference range due to change in reagent. ZGFEVC9434-06-66 00:47:00* Test Item Value Reference Range Interpretation Comments LIPASE (test code = LIP) 193 U/L 73.0-393.0 N MQPKRBVU-S5977-33-06 00:47:00* Test Item Value Reference Range Interpretation Comments TROPONIN-I (test code = TROPI) <0.015 ng/mL 0-0.045 N BASIC METABOLIC KBGJH0046-47-02 00:36:00* Test Item Value Reference Range Interpretation [...] code = CA) mg/dL 8.5-10.1 HEPATIC FUNCTION UMUYI7310-68-00 00:36:00* Test Item Value Reference Range Interpretation [...] TOTAL (test code = ALKP) IUnit/L 45-117 TVFNCC1307-26-90 00:36:00* Test Item Value Reference Range Interpretation Comments LIPASE (test code = LIP) U/L 73.0-393.0 OQRJRNAW-I5898-87-06 00:36:00* Test Item Value Reference Range Interpretation Comments TROPONIN-I (test code = TROPI) ng/mL 0-0.045 MEAAZNJJNS2011-45-86 09:40:0010.1[facility] LekoywpGMYRQSIRWD4513-33-96 09:40:00 19.9[facility] AhgerylTUDOVVXIAD8495-57-99 09:40:0054.9[facility]annHEMATOLOGY 2017-12-15 09:40:009.8[facility] VizlqwcIZDNPTVAFF3604-95-57 09:40:0015.3[facility] YlphbkhNAXIUBVNRS3177-25-19 09:40:000.1[facility] LrizcwwTSREDSVUCJ5278-18-41 09:40:003.7[facility] JuyioeeYNGZJRBYMP2061-28-98 09:40:001.8[facility] [place] LITYPMUIWC6142-57-73 09:40:002.8[facility] VlqmtjqPGKTHUVMCA5393-40-33 09:40:000.0 [facility] ChxuqceELNXERFMWG7123-31-97 09:40:008.1[facility]annHEMATOLOGY 2017-12-15 09:40:00* Test Item Value Reference Range Interpretation Comments MCH (test code = MCH) 29.1 pg 27.0-31.0 [facility] DzrnvdzEQRWQQLCOF1759-46-77 09:40:0034.4[facility]annHEMATOLOGY 2017-12-15 09:40:0015.8[facility] RmlprdnCJKIYHOSDE7960-31-66 09:40:14636Jtwiyrsv UlradqbFNIPSKJEWX7360-67-40 09:40:0084.5[facility] BdtyaojCWREJKNPLG9091-17-85 09:40:0018.4[facility] LysdohhJAVTFHNSKT8113-28-54 09:40:008.7[facility] FLZHLRQHZA7416-38-73 09:40:003.00[facility] KbniahzUOHTCQYAVE0018-71-96 09:40:00 25.3[facility] BsftvfpLBJMIPHSEJ9111-97-52 09:40:0011.6[facility] HermannHEMATOLOGY 2017-12-15 09:40:0015.1[facility] TffumijWERHOWROND8326-30-98 09:40:000.7[facility] GtbpmotETTJKULHDR1017-76-66 09:40:0052.6[facility] KwryjawTMIKIIFFJY2052-40-94 09:40:0020.0[facility] HermannCHEM UNDZE7867-86-59 09:28:0088[facility] HermannCHEM JVVZD5901-79-50 09:28:0099[facility] HermannCHEM FQNAU5072-97-70 09:28:0016 [facility]annCHEM HBDPX6921-41-93 09:28:26631Odtoknxh HermannCHEM PANEL 2017-12-14 09:28:000.90[facility] HermannCHEM RRXOG8238-52-44 09:28:008.8[facility] HermannCHEM LAJSV2786-62-41 09:28:0027[facility] HermannCHEM GJZPL9054-92-24 09:28:57638Xsfszitm HermannCHEM BUMRS6888-75-44 09:28:003.7[facility] HermannCHEM SDYLO1422-26-22 09:28:0012.7[facility] RxtczkbOWKUVWNSAO3295-22-31 09:28:008.0 [facility] FqozchyTJQOLTXANA9467-43-29 09:28:05504Ysqxtmaj HermannHEMATOLOGY 2017-12-14 09:28:0015.4[facility] OgdookxIOCUPCTUAW5129-69-66 09:28:0031.2[facility] UokrtpwYRETSIMSTA4607-01-05 09:28:00* Test Item Value Reference Range Interpretation Comments MCH (test code = MCH) 27.0 pg 27.0-31.0 [facility] DiuzqjhPZGFMPEYVM6019-01-35 09:28:0026.6[facility] HermannHEMATOLOGY 2017-12-14 09:28:0086.6[facility] GkbkymnUDHFFOJYWS9586-22-02 09:28:008.3[facility] QrbidfeJSLNXZZKXK7056-72-07 09:28:003.07[facility] WmmdjheHDINERYOMS6698-38-17 09:28:0019.5[facility] TlioyqkFJEIATDAJP7130-89-59 09:28:00Moderate *ABN*(12/14/17 4:28 AM)[facility] OnzbbbsRUSUKBUSYM4480-21-47 09:28:0056.0[facility] [place] [facility] RUTKTSIEBO4329-56-02 09:28:001.0[facility] GxcjfpdTMWDMCSXIP3284-15-81 09:28:002.0 [facility] GimlwbvZZBUHRYNPY2445-90-67 09:28:002.1[facility] HermannHEMATOLOGY 2017-12-14 09:28:00Normal (12/14/17 4:28 AM)[facility] QrniimwUZTWSZHWNM8319-24-75 09:28:004.3[facility] KpawnynTRRMFSWAXB2908-67-01 09:28:0021.0[facility] ZHHEDUJNST6402-24-06 09:28:0011.0[facility] DtpufynFVZJLMNEKB9751-62-78 09:28:00 1.0[facility] LnnnrdcLIBJAVLACS4296-72-31 09:28:0010.0[facility] HermannHEMATOLOGY 2017-12-14 09:28:0011.1[facility] HermannCHEM SCHRO7060-35-29 09:43:003.0[facility] HermannCHEM FSABH7680-85-97 09:43:002.0[facility] QukwizkOQESJJTFJCQB3356-79-97 09:43:0011.9[facility] TqtcpshAENCQIFLHAYR7439-94-85 09:43:0084[facility] UFANWNBTVOLR3852-86-33 09:43:0018[facility] LyrffsaYATNSHYNKDUQ8219-95-70 09:43:00 87[facility] AjpshsnIRWAQMWRRNRT2235-24-06 09:43:003.9[facility] HermannELECTROLYTES 2017-12-13 09:43:001.10[facility] LqjzsccUKHBSWCLDLSG8805-30-22 09:43:15014 [facility] LhbtliwBHUJIWZLKTOT6412-05-95 09:43:0098[facility] HermannELECTROLYTES 2017-12-13 09:43:008.8[facility] SvckhszFWKXPTXHRCYS7477-08-66 09:43:0029[facility] RapmhybROVCUDRPQR9548-08-62 09:43:00* Test Item Value Reference Range Interpretation Comments INR (test code = INR) 1.10 1 0.85-1.17 [facility] SorvrdoDQZNAYCQHS5724-50-31 09:43:00* Test Item Value Reference Range Interpretation Comments PT (test code = PT) 14.2 s 12.0-14.7 [facility] ZuhvdggYMYBAHGIGA9705-67-95 09:43:00* Test Item Value Reference Range Interpretation Comments PTT (test code = PTT) 35.0 s 22.9-35.8 [facility] AsldkieFMFJNYSEJV9832-71-80 09:43:000.1[facility]annHEMATOLOGY 2017-12-13 09:43:001.5[facility] SfzpjjmODWJJCDKTU8840-30-56 09:43:001.7[facility] VknztagGBNIHKTICM6886-68-08 09:43:0011.5[facility] VihlncmYDBYVIDTZF3815-59-00 09:43:000.4[facility] RcndxgdKYWWXAZHNW2088-70-53 09:43:002.2[facility] [place] [facility] OAPIBBMUEX9528-59-66 09:43:008.0[facility] KzcfoprBFUTWGMMPY9262-90-47 09:43:00578 [facility] KxslpwdSLUBKSPYLK0196-55-30 09:43:0015.4[facility]annHEMATOLOGY 2017-12-13 09:43:0033.5[facility] PgjsypwCTLNVCJPTT5385-17-89 09:43:00* Test Item Value Reference Range Interpretation Comments MCH (test code = MCH) 28.7 pg 27.0-31.0 [facility] IsiqrciLNAERWCQYE5546-70-13 09:43:002.99[facility]annHEMATOLOGY 2017-12-13 09:43:0085.6[facility] BirwxtyMLXRKANLIG3936-99-17 09:43:008.emorial YngbjuqALYQNLCZJT4697-87-53 09:43:0017.1[facility] KcrhoxjRPQIEIETAH3188-19-26 09:43:0025.[facility]orial GsijmmlAJXTTPDGHP2032-43-98 09:43:001.0[facility] LJPJDTJYVT0128-01-49 09:43:002.1[facility] CzzsnotOIZTXHIUFV8694-04-38 09:43:00 Moderate *ABN*(12/13/17 4:43 AM)[facility] FunheqcVIDCANRKEL0297-70-35 09:43:000.0 [facility] MrflkcnJPKPSCJAPS6628-30-76 09:43:00Normal (12/13/17 4:43 AM)[facility] XcvvgtxSXMEKYVXKW8771-20-36 09:43:0012.0[facility] OdmzrxcFTHRBMEQFM3091-30-06 09:43:001.9[facility] VpoonpyFBPWSZICPF1992-18-78 09:43:001.2[facility] PARATHYROID OHMUHXK7021-86-45 09:43:001.07[facility] HermannPARATHYROID PROFILE 2017-12-13 09:43:001.10[facility] HermannCHEM KPZYE7087-20-13 07:16:002.0[facility] HermannCHEM HTZGF7745-95-87 07:16:003.0[facility] CxqjsmvFBNQFDONMQPT7218-55-36 07:16:0013.3[facility] SheucxkMBUSPPHWDCKC2889-86-87 07:16:0068[facility] DCZTJGNLCNKN7326-95-63 07:16:008.9[facility] PherkszUQFPGPRMEAYJ0513-86-16 07:16:0019[facility] ElajbyuLNZJSFJXAUZM9400-10-73 07:16:0097[facility] HMTPNDPCLNKB4699-91-08 07:16:003.3[facility] BvaxkkrDTESCGJRRTPC3890-68-93 07:16:0033[facility] CwrwpgzXGTMJVCDNGSY0263-05-82 07:16:63591Bnlqomol Jonnie IFJZNOFPZXTW2728-59-72 07:16:0092[facility] GdllezyUAHFCNGKTDRP8094-49-54 07:16:00 1.30[facility] CisjgurZDIAGEPFFB2143-88-97 07:16:00* Test Item Value Reference Range Interpretation Comments PTT (test code = PTT) 40.2 s 22.9-35.8 [facility] ZrkahprPXHQQCSTYY8027-18-29 07:16:00* Test Item Value Reference Range Interpretation Comments INR (test code = INR) 1.26 1 0.85-1.17 [facility] SyvrxrjQVCKQSXBZH7628-46-81 07:16:00* Test Item Value Reference Range Interpretation Comments PT (test code = PT) 15.9 s 12.0-14.7 [facility] RwztxcjLDYARBGUAN7194-15-77 07:16:000.1[facility] HermannPARATHYROID WSBLUUV7319-08-06 07:16:001.10[facility] HermannPARATHYROID TDWCRVK1030-04-42 07:16:001.06[facility] UeytuojCNNNSGWUYH6096-99-47 08:17:001[facility] [place] MTYFBHGIPO6059-98-95 08:17:00Normal (12/11/17 3:17 AM)[facility]annHEMATOLOGY 2017-12-11 08:17:00Normal (12/11/17 3:17 AM)[facility] FjijvyoOYFVIGWLUB7592-57-14 08:17:002.0[facility] ExotyqfHDTAUHGXOX1032-45-91 08:17:000.0[facility]annURINE AND FRBZQ2189-05-43 23:58:00<=1.0[facility]UR[facility] AND KIVAF9911-68-75 23:58:96309Anvnkrqj HermannURINE AND GOFAB8941-44-67 23:58:001[facility] URINE AND FMXYM8832-10-99 23:58:001[facility] AND ITHAY9780-92-76 23:58:00Small *ABN*(12/10/17 6:58 PM)[facility] JUTRV4004-86-79 23:58:00Negative *NA*(12/10/17 6:58 PM)[facility] TINDD8180-90-11 23:58:00Negative (12/10/17 6:58 PM)[facility] HVCHG1411-13-83 23:58:00Clear (12/10/17 6:58 PM)[facility] TYVCY9207-48-85 23:58:00* Test Item Value Reference Range Interpretation Comments UA pH (test code = UA pH) 7.0 1 5.0-8.0 [facility] ROKTA2489-38-91 23:58:00* Test Item Value Reference Range Interpretation Comments UA Spec Grav (test code = UA Spec Grav) 1.009 1 [facility] MTLAH4257-85-48 23:58:00Negative (12/10/17 6:58 PM) [facility]annCHEM KGRQF8723-72-54 18:21:00* Test Item Value Reference Range Interpretation Comments Procalcitonin Lvl (test code = Procalcitonin Lvl) 4.32 1 <=0. 10 [facility]annCHEM ZYDQY6964-03-41 07:59:001.5[facility] HermannPARATHYROID JQRSKRX9069-69-09 07:59:001.06[facility] HermannPARATHYROID ESQZPVD3608-49-48 07:59:001.00[facility]annCHEM IHUMS4987-89-53 18:40:003.3[facility] HXBEHXESOO4346-44-08 18:40:00* Test Item Value Reference Range Interpretation Comments PTT (test code = PTT) 30.7 s 22.9-35.8 [facility] GunmawnWZJMPKDQXC6486-73-09 18:40:00* Test Item Value Reference Range Interpretation Comments INR (test code = INR) 1.20 1 0.85-1.17 [facility] XvspuedNCLJTLEIVZ3654-38-22 18:40:00* Test Item Value Reference Range Interpretation Comments PT (test code = PT) 15.3 s 12.0-14.7 [facility] QRKLMLJ1346-77-78 08:49:00Product available 3(12/09/17 3:49 AM)[facility]annCHEM OGIDG1346-48-99 08:00:000.2[facility]annCHEM JFYTK2258-21-93 08:00:002.7[facility]annCHEM YCRUH4420-73-97 08:00:0048 [facility]annCHEM LEAPW0123-02-50 08:00:0032[facility]annCHEM PANEL 2017-12-09 08:00:00* Test Item Value Reference Range Interpretation Comments A/G Ratio (test code = A/G Ratio) 0.8 1 0.7-1.6 [facility]annCHEM IHPEA4152-14-34 08:00:0027[facility]annCHEM PANEL 2017-12-09 08:00:002.1[facility]annCHEM OCIBU4357-68-42 08:00:004.8[facility]annCHEM UWYOI8006-73-12 08:00:00* Test Item Value Reference Range Interpretation Comments B/C Ratio (test code = B/C Ratio) 13 1 - [facility]annCHEM ZCUJP9380-33-30 20:50:001.3[facility]annCHEM PANEL 2017-12-08 20:50:00* Test Item Value Reference Range Interpretation Comments Procalcitonin Lvl (test code = Procalcitonin Lvl) 0.08 1 <=0. 10 [facility] VtgcahrJQYYEKVFUK6993-87-19 20:50:45642Wruohezg HermannCHEM PANEL 2017-12-08 15:30:0039[facility] HermannCHEM HOHNM2233-15-48 15:30:0035[facility]annCHEM NRPKI0828-36-70 15:30:000.5[facility]annCHEM BLVGY6398-76-38 15:30:00* Test Item Value Reference Range Interpretation Comments A/G Ratio (test code = A/G Ratio) 0.9 1 0.7-1.6 [facility]annCHEM AZLET0568-17-54 15:30:002.9[facility]annCHEM PANEL 2017-12-08 15:30:002.5[facility]annCHEM ZQPEK1383-25-92 15:30:0027[facility]annCHEM PAQZE1590-32-47 15:30:00* Test Item Value Reference Range Interpretation Comments B/C Ratio (test code = B/C Ratio) 9 1 03-12 [facility]annCHEM IPDQM0990-34-61 15:30:005.4[facility] HermannCHEM PANEL 2017-12-08 15:30:002.5[facility] HermannCARDIAC HPZVVIM4644-17-75 15:23:00<0.02 [facility] HospitalEiqwftrPRZMSXJFRW3208-96-33 15:23:91522Udtgvxdo HermannBLOOD BANK EQQVMKN9595-96-53 14:08:00Product available (12/08/17 9:08 AM)[facility] [place] BLOOD BANK RACWBIV4651-58-55 14:03:00Product available (12/08/17 9:03 AM)[facility] TboydtfZFTONFCCFG3919-08-31 13:12:004.8[facility] TcrvopkDZRGVUXNDT2575-99-89 13:12:001.3[facility] MvaqxxfGYWUWBITKT0455-94-58 13:12:00Negative *NA*(12/08/17 8:12 AM)[facility] LozontxNMHAXKWAWY1802-33-49 13:12:001.7[facility] HermannCHEM TJYOY5863-44-95 11:45:001.5[facility] HermannCHEM XZYUJ9079-00-21 11:45:000.5 [facility]annCHEM MMZHU5490-09-23 11:45:005.0[facility] HermannCHEM PANEL 2017-12-08 11:45:002.4[facility] HermannCHEM DXCLB1848-88-74 11:45:00* Test Item Value Reference Range Interpretation Comments B/C Ratio (test code = B/C Ratio) 13 1 625 [facility] HermannCHEM VIICF1305-93-30 11:45:0034[facility] HermannCHEM PANEL 2017-12-08 11:45:0019[facility] HermannCHEM TBVXB7643-35-31 11:45:0020[facility] HermannCHEM EOQXZ3782-50-86 11:45:00* Test Item Value Reference Range Interpretation Comments A/G Ratio (test code = A/G Ratio) 0.9 1 0.7-1.6 [facility] HermannCHEM BGYTF4288-96-69 11:45:002.6[facility]annHEMATOLOGY 2017-12-08 11:45:00Normal (12/08/17 6:45 AM)[facility] AlxuuneJVSRAHEFBJ3431-06-92 11:45:00* Test Item Value Reference Range Interpretation Comments Max Amplitude Rapid (test code = Max Amplitude Rapid) 57 mm 52-71 [facility] YkqhlejQYXXGWILKB4947-21-09 11:45:006.6[facility] HermannHEMATOLOGY 2017-12-08 11:45:00* Test Item Value Reference Range Interpretation Comments [place] Rapid (test code = [place] Rapid) 0.6 min [facility] GfvjciqCJCADFHMPM3670-53-06 11:45:002.9[facility] HermannHEMATOLOGY 2017-12-08 11:45:00* Test Item Value Reference Range Interpretation Comments R-time Rapid (test code = R-time Rapid) 0.7 min 0.4-0.7 [facility] GtctotxGIREULBPKK8761-05-05 11:45:00* Test Item Value Reference Range Interpretation Comments Angle Rapid (test code = Angle Rapid) 73 degrees 64-80 [facility] MiwbpvtLJDDRWAMEP9139-29-17 11:45:00* Test Item Value Reference Range Interpretation Comments K-time Rapid (test code = K-time Rapid) 1.4 min 0.6-2.3 [facility] VpjtxvwLJGYVACLOH8156-16-84 11:45:00* Test Item Value Reference Range Interpretation Comments ACT (TEG) Rapid (test code = ACT (TEG) Rapid) 113 s 86-118 [facility] XABDBRW0621-88-30 10:41:00Product available (12/08/17 5:41 AM)[facility] HighlighterannRise [employer] BANK FLEQEHR6955-31-45 10:41:00Product available 2(12/08/17 5:41 AM)[facility] HighlighterannBLOOD BANK HTZRJSI1724-86-60 10:41:00Product available (12/08/17 5:41 AM)[facility] HermannBACTERIAL - ZYRCHPNH6790-49-27 09:27:00Negative (12/08/17 4:27 AM)[facility] HermannBACTERIAL - LGILHMTC4853-91-48 09:27:00Urine *NA*(12/08/17 4:27 AM)[facility] HermannCARDIAC QHUAJMO7994-20-27 09:27:00<0.02[facility] GsrdhrvLBPMVJVORI2156-29-21 09:27:69604Jszyfrtz [place] CDOQDLCOOZ8844-60-70 09:27:000.45[facility] VhwogizWJRSAQGPCO6216-62-81 09:27:00< 1.3[facility] FiljhvkNHLOOGGCDP4077-88-94 09:27:00Not Detected (12/08/17 4:27 AM) [facility] WjifowcSBPHUXABOS9110-92-91 09:27:00Positive *ABN*(12/08/17 4:27 AM) [facility]annUR[facility] AND VNMEV8589-27-67 07:30:0050[facility]annURINE AND AERQD1697-39-73 07:30:002.0[facility]annUR[facility] AND BEAZB4154-13-70 07:30:00 Small *ABN*(12/08/17 2:30 AM)[facility]annUR[facility] AND RBPQL2385-83-11 07:30:00 Negative *NA*(12/08/17 2:30 AM)[facility]annUR[facility] AND RRVLN1844-31-51 07:30:00 6[facility]annURINE AND JOESM2980-43-69 07:30:00* Test Item Value Reference Range Interpretation Comments UA Spec Grav (test code = UA Spec Grav) 1.021 1 [facility]UR[facility] AND ILQRL8482-60-81 07:30:00Slight *ABN*(12/08/17 2:30 AM) [facility] GDRQT5992-35-20 07:30:00* Test Item Value Reference Range Interpretation Comments UA pH (test code = UA pH) 5.0 1 5.0-8.0 [facility]UR[facility] PXMPE5459-79-11 07:30:00Negative (12/08/17 2:30 AM) [facility] HNDXW7633-33-42 07:30:001[facility]annUR[facility] AND KKHNI9306-45-45 07:30:00Negative (12/08/17 2:30 AM)[facility] HermannBLOOD BANK SEGPVIU4872-52-63 06:28:00Product available 1(12/08/17 1:28 AM)[facility] [place] BACTERIAL - HFZZELTF7052-41-18 04:11:00Negative (12/07/17 11:11 PM)[facility] HermannDRUG CQLCPY5002-10-64 04:11:00Negative *NA*(12/07/17 11:11 PM)[facility] HermannDRUG OYGKXO9518-78-38 04:11:00Negative *NA*(12/07/17 11:11 PM)[facility] HermannDRUG YOPZFJ3817-95-37 04:11:00Negative *NA*(12/07/17 11:11 PM)[facility] HermannDRUG QIWYRV2849-90-87 04:11:00Negative *NA*(12/07/17 11:11 PM)[facility] HermannDRUG DAOGNQ4069-87-41 04:11:00Negative *NA*(12/07/17 11:11 PM)[facility] HermannDRUG ZZJXBG5052-88-55 04:11:00Positive *ABN*(12/07/17 11:11 PM)[facility] HermannDRUG EPSSRD5471-14-33 04:11:00Negative *NA*(12/07/17 11:11 PM)[facility] HermannDRUG YZFRHO0202-29-59 04:11:00See Note (12/07/17 11:11 PM)[facility] BLOOD BANK NIELASP6105-96-82 04:04:00Negative (12/07/17 11:04 PM)[facility] CARDIAC YLXQOGD2652-66-14 04:04:003[facility] HermannCARDIAC USEKDRI5221-73-63 04:04:00<0.02[facility] HermannCHEM ALWQE0565-41-99 04:04:00<0.05[facility] YLYFLR7575-41-22 04:04:00* Test Item Value Reference Range Interpretation Comments VLDL (test code = VLDL) 25 1 [facility] FqonpqyZUVEPA8878-91-84 04:04:0095[facility] YcqfvtyBTRVUY2562-03-96 04:04:61778Umuerpcq LjmnlfyYHSMAU8495-97-29 04:04:0015[facility] HermannLIPIDS 2017-12-08 04:04:00* Test Item Value Reference Range Interpretation Comments CHD Risk (test code = CHD Risk) 9.00 1 4.00-7.30 [facility] KwunevoSGTSTW9331-51-14 04:04:21145Qulczaii HermannSPECIAL CHEMISTRY 2017-12-08 04:04:005.1[facility]
== END 2020-07-31 19:19 | disposition home or self-care (01) ==
LOC: ER 16:45
DX: M96.831 Postprocedural hemorrhage of a musculoskeletal structure following other procedure (principal); K21.9 Gastro-esophageal reflux disease without esophagitis; D75.1 Secondary polycythemia
CPT/HCPCS: 36415; 80053; 85025; 85610; 99283; J3010

== ENCOUNTER 2020-08-01 01:03 | Observation (INO) | payer OTHER ==
[~2020-08-01] VITALS: Ht 172.7 cm; Wt 86.2 kg
[2020-08-01] MEDS ORDERED: MORPHINE SULFATE INJ 4 MG/ML INJ 1ML IV STA (01:41)
[2020-08-01] MEDS ORDERED: SODIUM CHLORIDE 0.9% 1000ML 1,000 ML IV STA ×2 (01:41→01:50)
[2020-08-01] MEDS ORDERED: SODIUM CHLORIDE 0.9% 250ML 250 ML IV ONE (02:00)
[2020-08-01 02:03] LABS: BASOPHILS # (AUTO) 0.1 (0.0-0.1); BASOPHILS % 0.5 % (0.0-1.0); EOSINOPHILS # (AUTO) 0.3 (0.0-0.4); EOSINOPHILS % 1.5 % (0.0-6.0); HEMATOCRIT 42.8 % (38.2-49.6); HEMOGLOBIN 14.2 g/dL (14.0-18.0); LYMPHOCYTES # (AUTO) 7.8 (1.0-3.2); MEAN CORPUSCULAR HEMOGLOBIN 27.6 pg (28-32); MEAN CORPUSCULAR HGB CONC 33.2 g/dL (31-35); MEAN CORPUSCULAR VOLUME 83.3 fL (81-99); MONOCYTES # (AUTO) 2.8 (0.2-0.8); MONOCYTES % 12.5 % (4.4-11.3); NEUTROPHILS % 49.7 % (38.7-80.0); PLATELET COUNT 642 x10e3/uL (140-360); RED BLOOD COUNT 5.14 x10e6/uL (4.3-5.7); RED CELL DISTRIBUTION WIDTH 18.8 % (11.7-14.4)
[2020-08-01 02:21] LABS: ALBUMIN 3.1 g/dL (3.5-5.0); ANION GAP 13.6 mmol/L (8-16); CALCIUM 8.5 mg/dL (8.4-10.2); CREATININE, SERUM 1.31 mg/dL (0.72-1.25); POTASSIUM 4.6 mmol/L (3.5-5.1)
[2020-08-01] MEDS ORDERED: SODIUM CHLORIDE 0.9% 1000ML 1,000 ML IV SCH (03:00)
[2020-08-01 03:15] LABS: CREATINE KINASE MB 3.7 ng/mL (0-5.0)
[2020-08-01] MEDS ORDERED: MORPHINE SULFATE INJ 4 MG/ML INJ 1ML IV ONE (03:30)
[2020-08-01 04:15] VITALS: BP 131/81
[2020-08-01 04:49] VITALS: BP 131/81
[2020-08-01] MEDS ORDERED: HYDROMORPHONE 1MG/1ML INJ IV PRN (05:45)
[2020-08-01] MEDS ORDERED: CLINDAMYCIN 300MG 50 ML IV SCH (06:00)
[2020-08-01 08:20] VITALS: BP 114/60
[2020-08-01 08:23] VITALS: BP 114/60
[2020-08-01 10:55] LABS: CREATINE KINASE MB 3.1 ng/mL (0-5.0)
== END 2020-08-01 10:43 | disposition home or self-care (01) ==
LOC: ER 01:07 → ERHOLD 03:01 → MED/SURG2 04:02
PROVIDERS: ADMIT Family Medicine; ATTEND Family Medicine
DX: K91.840 Postprocedural hemorrhage of a digestive system organ or structure following a digestive system procedure (principal); R55 Syncope and collapse; Z88.8 Allergy status to other drugs, medicaments and biological substances; K21.9 Gastro-esophageal reflux disease without esophagitis; Z83.3 Family history of diabetes mellitus; Z82.49 Family history of ischemic heart disease and other diseases of the circulatory system; N17.9 Acute kidney failure, unspecified; Z20.828 Contact with and (suspected) exposure to other viral communicable diseases
CPT/HCPCS: 36415; 36430; 80053; 82550; 82553; 84484; 85025; 86850; 86900; 86920; 93005; 99284; G0378; J1170; J2270; J7030; J7050; P9016; U0002

== ENCOUNTER 2020-08-09 16:30 | Inpatient (IN) | payer OTHER ==
[~2020-08-09] VITALS: Ht 175.3 cm; Wt 88.5 kg
[2020-08-09 17:48] LABS: BASOPHILS # (AUTO) 0.1 (0.0-0.1); BASOPHILS % 0.3 % (0.0-1.0); HEMATOCRIT 41.9 % (38.2-49.6); LYMPHOCYTES # (AUTO) 4.2 (1.0-3.2); LYMPHOCYTES % 14.9 % (18.0-39.1); MEAN CORPUSCULAR HEMOGLOBIN 27.3 pg (28-32); MEAN CORPUSCULAR HGB CONC 33.4 g/dL (31-35); MEAN CORPUSCULAR VOLUME 81.8 fL (81-99); MONOCYTES # (AUTO) 2.1 (0.2-0.8); MONOCYTES % 7.4 % (4.4-11.3); NEUTROPHILS # (AUTO) 21.4 (2.1-6.9); NEUTROPHILS % 76.5 % (38.7-80.0); PLATELET COUNT 742 x10e3/uL (140-360); RED BLOOD COUNT 5.12 x10e6/uL (4.3-5.7); RED CELL DISTRIBUTION WIDTH 16.8 % (11.7-14.4)
[2020-08-09 18:07] LABS: ALANINE AMINOTRANSFERASE 57 IU/L (0-55); ALBUMIN 3.6 g/dL (3.5-5.0); ALBUMIN/GLOBULIN RATIO 1.2 (0.8-2.0); ALKALINE PHOSPHATASE 59 IU/L (40-150); BLOOD UREA NITROGEN 11 mg/dL (7-26); BUN/CREATININE RATIO 9 (6-25); CALCIUM 8.7 mg/dL (8.4-10.2); CARBON DIOXIDE 25 mmol/L (22-29); CHLORIDE 102 mmol/L (98-107); CREATININE, SERUM 1.23 mg/dL (0.72-1.25); EST GLOMERULAR FILTRATION RATE > 60 ML/MIN (60-); GLUCOSE 115 mg/dL (74-118); SODIUM 137 mmol/L (136-145)
[2020-08-09] MEDS ORDERED: CLINDAMYCIN 600MG / 50ML 50 ML IV STA (18:20)
[2020-08-09 18:34] LABS: LYMPHOCYTES % (MANUAL) 22 % (19-48); MONOCYTES % (MANUAL) 8 % (3.4-9.0); NEUTROPHILS % (MANUAL) 67 % (40-74); PLATELET ESTIMATE ADEQUATE; PLATELET MORPHOLOGY COMMENT NORMAL; RBC MORPHOLOGY COMMENT NORMAL
[2020-08-09] MEDS ORDERED: PIPER-TAZ 3.375 GM 50 ML IV STA (18:52)
[2020-08-09] MEDS ORDERED: MORPHINE SULFATE INJ 4 MG/ML INJ 1ML IV STA (18:56)
[2020-08-09] MEDS ORDERED: ONDANSETRON HCL INJ 2MG/ML 2ML 2 MG/ML VIAL IV STA (18:56)
[2020-08-09] MEDS ORDERED: MORPHINE SULFATE INJ 4 MG/ML INJ 1ML IV PRN (19:15)
[2020-08-09] MEDS ORDERED: ONDANSETRON HCL INJ 2MG/ML 2ML 2 MG/ML VIAL IV PRN (19:15)
[2020-08-09] MEDS ORDERED: SODIUM CHLORIDE 0.9% 1000ML 1,000 ML ONE (19:18)
[2020-08-09] MEDS: SODIUM CHLORIDE 0.9% 1000ML 1,000 ML IV SCH (19:21)
[2020-08-09] MEDS ORDERED: SODIUM CHLORIDE 0.9% 50ML 50 ML ONE (19:31)
[2020-08-09] MEDS ORDERED: IOPAMIDOL 370 MG/ML 200 ML INFUS..BTL INJ ONE (19:31)
[2020-08-09 21:00] VITALS: BP 154/73
[2020-08-09] MEDS ORDERED: NORCO 5-325 TA1 EACH PO (21:22)
[2020-08-09] MEDS ORDERED: TYLENOL # 31 EA PO (21:22)
[2020-08-09] MEDS: HYDROCODONE/APAP 5MG-325MG TAB PO PRN (22:05)
[2020-08-10] VITALS (8 sets, daily range): BP systolic 133–150; BP diastolic 62–89
[2020-08-10] MEDS: PIPER-TAZ 3.375 GM 50 ML IV SCH ×4 (01:44→18:00)
[2020-08-10] MEDS: HYDROCODONE/APAP 5MG-325MG TAB PO PRN ×3 (02:05→19:21)
[2020-08-10] MEDS: SODIUM CHLORIDE 0.9% 1000ML 1,000 ML IV SCH ×3 (03:31→19:21)
[2020-08-10 05:19] LABS: BASOPHILS # (AUTO) 0.1 (0.0-0.1); BASOPHILS % 0.4 % (0.0-1.0); EOSINOPHILS # (AUTO) 0.1 (0.0-0.4); EOSINOPHILS % 0.5 % (0.0-6.0); HEMATOCRIT 41.3 % (38.2-49.6); HEMOGLOBIN 13.5 g/dL (14.0-18.0); LYMPHOCYTES # (AUTO) 5.2 (1.0-3.2); LYMPHOCYTES % 23.7 % (18.0-39.1); MEAN CORPUSCULAR HEMOGLOBIN 28.1 pg (28-32); MEAN CORPUSCULAR HGB CONC 32.7 g/dL (31-35); MEAN CORPUSCULAR VOLUME 85.9 fL (81-99); MONOCYTES # (AUTO) 2.1 (0.2-0.8); MONOCYTES % 9.3 % (4.4-11.3); NEUTROPHILS # (AUTO) 14.5 (2.1-6.9); NEUTROPHILS % 65.6 % (38.7-80.0); PLATELET COUNT 736 x10e3/uL (140-360); RED BLOOD COUNT 4.81 x10e6/uL (4.3-5.7); RED CELL DISTRIBUTION WIDTH 17.2 % (11.7-14.4)
[2020-08-10 05:42] LABS: ALBUMIN 3.1 g/dL (3.5-5.0); ALBUMIN/GLOBULIN RATIO 1.1 (0.8-2.0); ANION GAP 13.2 mmol/L (8-16); CALCIUM 8.1 mg/dL (8.4-10.2); CREATININE, SERUM 1.41 mg/dL (0.72-1.25); POTASSIUM 4.2 mmol/L (3.5-5.1)
[2020-08-10 08:06] LABS: BAND NEUTROPHILS % (MANUAL) 3 %; LYMPHOCYTES % (MANUAL) 16 % (19-48); MONOCYTES % (MANUAL) 5 % (3.4-9.0); NEUTROPHILS % (MANUAL) 75 % (40-74)
[2020-08-10 08:07] LABS: PLATELET ESTIMATE MARKEDLY INCREASED; PLATELET MORPHOLOGY COMMENT NORMAL; RBC MORPHOLOGY COMMENT ABNORMAL; TARGET CELLS FEW
[2020-08-10 08:08] LABS: SCHISTOCYTES RARE
[2020-08-10] MEDS: PANTOPRAZOLE SOD 40 MG TABEC PO SCH (09:50)
[2020-08-11] VITALS (9 sets, daily range): BP systolic 105–142; BP diastolic 50–79
[2020-08-11] MEDS: HYDROCODONE/APAP 5MG-325MG TAB PO PRN ×2 (00:15→04:15)
[2020-08-11] MEDS: PIPER-TAZ 3.375 GM 50 ML IV SCH ×5 (00:25→23:53)
[2020-08-11] MEDS: SODIUM CHLORIDE 0.9% 1000ML 1,000 ML IV SCH ×3 (04:10→19:18)
[2020-08-11 06:19] LABS: BASOPHILS # (AUTO) 0.1 (0.0-0.1); BASOPHILS % 0.8 % (0.0-1.0); EOSINOPHILS # (AUTO) 0.4 (0.0-0.4); EOSINOPHILS % 2.4 % (0.0-6.0); HEMATOCRIT 41.4 % (38.2-49.6); HEMOGLOBIN 13.5 g/dL (14.0-18.0); LYMPHOCYTES % 38.7 % (18.0-39.1); MEAN CORPUSCULAR HEMOGLOBIN 27.4 pg (28-32); MEAN CORPUSCULAR HGB CONC 32.6 g/dL (31-35); MEAN CORPUSCULAR VOLUME 84.1 fL (81-99); MONOCYTES % 12.6 % (4.4-11.3); NEUTROPHILS # (AUTO) 6.9 (2.1-6.9); NEUTROPHILS % 44.4 % (38.7-80.0); PLATELET COUNT 711 x10e3/uL (140-360); RED BLOOD COUNT 4.92 x10e6/uL (4.3-5.7); RED CELL DISTRIBUTION WIDTH 17.7 % (11.7-14.4)
[2020-08-11] MEDS: PANTOPRAZOLE SOD 40 MG TABEC PO SCH (08:47)
[2020-08-11 10:19] LABS: EOSINOPHILS % (MANUAL) 1 % (0-7); LYMPHOCYTES % (MANUAL) 32 % (19-48); MONOCYTES % (MANUAL) 14 % (3.4-9.0); NEUTROPHILS % (MANUAL) 43 % (40-74); PLATELET ESTIMATE MARKEDLY INCREASED; PLATELET MORPHOLOGY COMMENT RARE EDTA CLUMPING
[2020-08-11 10:20] LABS: TARGET CELLS FEW; TEAR DROP CELLS FEW
[2020-08-11 10:21] LABS: POLYCHROMASIA FEW; RBC MORPHOLOGY COMMENT ABNORMAL
[2020-08-12] VITALS: BP 131/74
[2020-08-12] MEDS: SODIUM CHLORIDE 0.9% 1000ML 1,000 ML IV SCH ×3 (04:02→19:15)
[2020-08-12] MEDS: PIPER-TAZ 3.375 GM 50 ML IV SCH ×3 (05:35→18:01)
[2020-08-12 06:51] LABS: BASOPHILS # (AUTO) 0.1 (0.0-0.1); BASOPHILS % 0.9 % (0.0-1.0); EOSINOPHILS # (AUTO) 0.5 (0.0-0.4); EOSINOPHILS % 3.5 % (0.0-6.0); HEMATOCRIT 41.4 % (38.2-49.6); HEMOGLOBIN 13.4 g/dL (14.0-18.0); LYMPHOCYTES # (AUTO) 5.2 (1.0-3.2); LYMPHOCYTES % 38.9 % (18.0-39.1); MEAN CORPUSCULAR HEMOGLOBIN 27.5 pg (28-32); MEAN CORPUSCULAR HGB CONC 32.4 g/dL (31-35); MEAN CORPUSCULAR VOLUME 84.8 fL (81-99); MONOCYTES % 15.1 % (4.4-11.3); NEUTROPHILS # (AUTO) 5.4 (2.1-6.9); NEUTROPHILS % 40.8 % (38.7-80.0); PLATELET COUNT 719 x10e3/uL (140-360); RED BLOOD COUNT 4.88 x10e6/uL (4.3-5.7); RED CELL DISTRIBUTION WIDTH 17.5 % (11.7-14.4)
[2020-08-12 08:23] VITALS: BP 109/50
[2020-08-12] MEDS: PANTOPRAZOLE SOD 40 MG TABEC PO SCH (08:30)
[2020-08-12 09:48] LABS: BAND NEUTROPHILS % (MANUAL) 2 %; EOSINOPHILS % (MANUAL) 1 % (0-7); LYMPHOCYTES % (MANUAL) 37 % (19-48); MONOCYTES % (MANUAL) 10 % (3.4-9.0); NEUTROPHILS % (MANUAL) 50 % (40-74); PLATELET ESTIMATE MARKEDLY INCREASED; PLATELET MORPHOLOGY COMMENT NORMAL; RBC MORPHOLOGY COMMENT ABNORMAL; SCHISTOCYTES RARE; TARGET CELLS FEW
[2020-08-12 12:32] VITALS: BP_SYST 107; BP_SYST 113; BP_DIAS 44; BP_DIAS 63
[2020-08-12] MEDS: HYDROCODONE/APAP 5MG-325MG TAB PO PRN ×2 (15:26→22:15)
[2020-08-12 16:18] VITALS: BP 159/90
[2020-08-12] MEDS ORDERED: ONDANSETRON HCL 4 MG ORAL DISINTEGRATING TAB PO PRN (16:45)
[2020-08-12 20:16] VITALS: BP 141/81
[2020-08-12 22:46] VITALS: BP 141/81
[2020-08-13 00:27] VITALS: BP 138/67
[2020-08-13 04:00] VITALS: BP 107/59
[2020-08-13] MEDS: PIPER-TAZ 3.375 GM 50 ML IV SCH ×2 (06:00)
[2020-08-13] MEDS: SODIUM CHLORIDE 0.9% 1000ML 1,000 ML IV SCH (06:00)
[2020-08-13 08:21] VITALS: BP 134/76
[2020-08-13] MEDS: PANTOPRAZOLE SOD 40 MG TABEC PO SCH (08:23)
[2020-08-13] MEDS: HYDROCODONE/APAP 5MG-325MG TAB PO PRN (08:23)
== END 2020-08-13 09:41 | disposition home or self-care (01) | DRG 158 ==
LOC: ER 16:58 → ERHOLD 20:25 → MED/SURG2 20:51 → OBSVTOIN 08-11 08:30
PROVIDERS: ADMIT Family Medicine; ATTEND Family Medicine
DX: K05.219 Aggressive periodontitis, localized, unspecified severity (principal); L03.211 Cellulitis of face; Z20.828 Contact with and (suspected) exposure to other viral communicable diseases; K21.9 Gastro-esophageal reflux disease without esophagitis
CPT/HCPCS: 36415; 70491; 80053; 85025; 96361; 99284; G0378; J2270; J2405; J2543; J7030; Q9967; U0002

== ENCOUNTER 2020-08-22 00:23 | Inpatient (IN) | payer OTHER ==
[2020-08-22] VITALS (7 sets, daily range): BP systolic 127–152; BP diastolic 69–95
[~2020-08-22] VITALS: Ht 175.3 cm; Wt 93.4 kg
[~2020-08-22 00:23] MED LIST changes: +NORCO 5-325 TA1 EACH PO
[2020-08-22] MEDS ORDERED: MORPHINE SULFATE 2 MG/ML SYR 1ML IV STA (00:46)
[2020-08-22] MEDS ORDERED: ONDANSETRON HCL INJ 2MG/ML 2ML 2 MG/ML VIAL IV STA (00:46)
[2020-08-22 01:03] LABS: BASOPHILS # (AUTO) 0.1 (0.0-0.1); BASOPHILS % 0.4 % (0.0-1.0); EOSINOPHILS # (AUTO) 0.6 (0.0-0.4); HEMATOCRIT 44.4 % (38.2-49.6); HEMOGLOBIN 14.7 g/dL (14.0-18.0); LYMPHOCYTES # (AUTO) 4.4 (1.0-3.2); LYMPHOCYTES % 16.2 % (18.0-39.1); MEAN CORPUSCULAR HEMOGLOBIN 26.9 pg (28-32); MEAN CORPUSCULAR HGB CONC 33.1 g/dL (31-35); MEAN CORPUSCULAR VOLUME 81.3 fL (81-99); MONOCYTES # (AUTO) 2.7 (0.2-0.8); MONOCYTES % 9.7 % (4.4-11.3); NEUTROPHILS # (AUTO) 19.4 (2.1-6.9); NEUTROPHILS % 70.9 % (38.7-80.0); PLATELET COUNT 646 x10e3/uL (140-360); RED BLOOD COUNT 5.46 x10e6/uL (4.3-5.7); RED CELL DISTRIBUTION WIDTH 17.1 % (11.7-14.4)
[2020-08-22 01:17] LABS: ALBUMIN 3.6 g/dL (3.5-5.0); ALBUMIN/GLOBULIN RATIO 1.1 (0.8-2.0); ANION GAP 13.3 mmol/L (8-16); CREATININE, SERUM 1.36 mg/dL (0.72-1.25); POTASSIUM 4.3 mmol/L (3.5-5.1)
[2020-08-22 01:30] LABS: CLARITY,URINE CLOUDY (CLEAR); COLOR,URINE YELLOW (YELLOW)
[2020-08-22] MEDS ORDERED: PIPER-TAZ 3.375 GM 50 ML IV ONE (01:30)
[2020-08-22] MEDS ORDERED: SODIUM CHLORIDE 0.9% 1000ML 1,000 ML IV ONE (01:30)
[2020-08-22 01:31] LABS: BILIRUBIN,URINE NEGATIVE (NEGATIVE); KETONES,URINE NEGATIVE (NEGATIVE); LEUKOCYTE ESTERASE ,URINE NEGATIVE (NEGATIVE); NITRITE,URINE NEGATIVE (NEGATIVE); PROTEIN,URINE DIPSTICK NEGATIVE (NEGATIVE); URINE UROBILINOGEN 1 mg/dL (0.2 - 1)
[2020-08-22 01:32] LABS: AMORPHOUS SEDIMENT,URINE MANY (FEW); BACTERIA,URINE MANY /HPF; EPITHELIAL CELLS,URINE FEW /LPF
[2020-08-22 01:48] LABS: AMYLASE 104 U/L (25-125); LIPASE 87 U/L (8-78)
[2020-08-22] MEDS: SODIUM CHLORIDE 0.9% 1000ML 1,000 ML IV SCH ×3 (03:01→19:30)
[2020-08-22] MEDS: METRONIDAZOLE 500MG/NS 100ML 100 ML IV SCH ×4 (03:04→16:43)
[2020-08-22] MEDS ORDERED: HYDRALAZINE HCL 20 MG/ML VIAL IV PRN ×2 (03:15→09:15)
[2020-08-22] MEDS ORDERED: AMOX TR-K CLV1 EAC2 PO (03:17)
[2020-08-22] MEDS ORDERED: LISINOPRIL10 MG PO (03:17)
[2020-08-22] MEDS ORDERED: ACETAMINOPHEN 325 MG TAB PO PRN ×2 (05:15→09:15)
[2020-08-22] MEDS: PIPER-TAZ 3.375 GM / NS 50ML IV SCH ×3 (05:20→21:36)
[2020-08-22 06:36] LABS: BASOPHILS # (AUTO) 0.1 (0.0-0.1); BASOPHILS % 0.5 % (0.0-1.0); EOSINOPHILS # (AUTO) 0.4 (0.0-0.4); EOSINOPHILS % 1.9 % (0.0-6.0); HEMATOCRIT 42.4 % (38.2-49.6); HEMOGLOBIN 14.2 g/dL (14.0-18.0); LYMPHOCYTES % 18.9 % (18.0-39.1); MEAN CORPUSCULAR HEMOGLOBIN 27.4 pg (28-32); MEAN CORPUSCULAR HGB CONC 33.5 g/dL (31-35); MEAN CORPUSCULAR VOLUME 81.9 fL (81-99); MONOCYTES # (AUTO) 1.8 (0.2-0.8); MONOCYTES % 8.4 % (4.4-11.3); NEUTROPHILS # (AUTO) 14.7 (2.1-6.9); NEUTROPHILS % 69.7 % (38.7-80.0); PLATELET COUNT 607 x10e3/uL (140-360); RED BLOOD COUNT 5.18 x10e6/uL (4.3-5.7); RED CELL DISTRIBUTION WIDTH 17.2 % (11.7-14.4)
[2020-08-22 06:53] LABS: ALBUMIN 3.5 g/dL (3.5-5.0); ALBUMIN/GLOBULIN RATIO 1.2 (0.8-2.0); ANION GAP 13.3 mmol/L (8-16); CALCIUM 8.4 mg/dL (8.4-10.2); CREATININE, SERUM 1.42 mg/dL (0.72-1.25); POTASSIUM 4.3 mmol/L (3.5-5.1)
[2020-08-22] MEDS ORDERED: ONDANSETRON HCL INJ 2MG/ML 2ML 2 MG/ML VIAL IV PRN (09:15)
[2020-08-22] MEDS ORDERED: CEFTRIAXONE SOD 1 GM/NS 50 ML 50 ML IV SCH (09:45)
[2020-08-22] MEDS: PANTOPRAZOLE 40 MG 10ML VIAL IV SCH (16:43)
[2020-08-22] MEDS ORDERED: MORPHINE SULFATE 2 MG/ML SYR 1ML IV PRN (21:45)
[2020-08-22] MEDS: SUCRALFATE 1 GM TAB PO SCH (22:32)
[2020-08-22] MEDS: METOCLOPRAMIDE HCL 10 MG/2ML VIAL IV SCH (22:32)
[2020-08-23] VITALS (8 sets, daily range): BP systolic 91–153; BP diastolic 49–75
[2020-08-23] MEDS: METRONIDAZOLE 500MG/NS 100ML 100 ML IV SCH ×4 (00:14→17:39)
[2020-08-23] MEDS ORDERED: IOPAMIDOL 370 MG/ML 200 ML INFUS..BTL INJ ONE (00:19)
[2020-08-23] MEDS ORDERED: SODIUM CHLORIDE 0.9% 50ML 50 ML ONE (00:19)
[2020-08-23] MEDS: SODIUM CHLORIDE 0.9% 1000ML 1,000 ML IV SCH ×3 (02:00→18:48)
[2020-08-23] MEDS: PIPER-TAZ 3.375 GM / NS 50ML IV SCH ×3 (05:22→21:32)
[2020-08-23] MEDS ORDERED: PANTOPRAZOLE SOD 40 MG TABEC PO SCH (06:00)
[2020-08-23 06:47] LABS: BASOPHILS # (AUTO) 0.1 (0.0-0.1); BASOPHILS % 0.8 % (0.0-1.0); EOSINOPHILS # (AUTO) 0.9 (0.0-0.4); EOSINOPHILS % 7.1 % (0.0-6.0); HEMATOCRIT 40.7 % (38.2-49.6); HEMOGLOBIN 13.4 g/dL (14.0-18.0); LYMPHOCYTES # (AUTO) 4.2 (1.0-3.2); LYMPHOCYTES % 34.1 % (18.0-39.1); MEAN CORPUSCULAR HEMOGLOBIN 26.9 pg (28-32); MEAN CORPUSCULAR HGB CONC 32.9 g/dL (31-35); MEAN CORPUSCULAR VOLUME 81.7 fL (81-99); MONOCYTES # (AUTO) 1.9 (0.2-0.8); MONOCYTES % 15.2 % (4.4-11.3); NEUTROPHILS # (AUTO) 5.2 (2.1-6.9); NEUTROPHILS % 42.2 % (38.7-80.0); PLATELET COUNT 615 x10e3/uL (140-360); RED BLOOD COUNT 4.98 x10e6/uL (4.3-5.7)
[2020-08-23 07:30] LABS: ALBUMIN 3.1 g/dL (3.5-5.0); ALBUMIN/GLOBULIN RATIO 1.1 (0.8-2.0); ANION GAP 11.7 mmol/L (8-16); CALCIUM 7.9 mg/dL (8.4-10.2); CREATININE, SERUM 1.34 mg/dL (0.72-1.25); POTASSIUM 3.7 mmol/L (3.5-5.1)
[2020-08-23] MEDS: PANTOPRAZOLE 40 MG 10ML VIAL IV SCH ×2 (08:15→17:39)
[2020-08-23] MEDS: LISINOPRIL 10 MG TAB PO SCH (08:45)
[2020-08-23] MEDS: METOCLOPRAMIDE HCL 10 MG/2ML VIAL IV SCH ×2 (08:45→17:39)
[2020-08-23] MEDS: SUCRALFATE 1 GM TAB PO SCH (20:24)
[2020-08-23] MEDS: ACETAMINOPHEN/CODEINE 300MG - 30MG TAB PO PRN (20:25)
[2020-08-24] VITALS (7 sets, daily range): BP systolic 108–136; BP diastolic 48–93
[2020-08-24] MEDS: METRONIDAZOLE 500MG/NS 100ML 100 ML IV SCH ×4 (00:55→17:28)
[2020-08-24] MEDS: SODIUM CHLORIDE 0.9% 1000ML 1,000 ML IV SCH (03:24)
[2020-08-24] MEDS: PIPER-TAZ 3.375 GM / NS 50ML IV SCH ×3 (05:15→22:19)
[2020-08-24 05:47] LABS: ALANINE AMINOTRANSFERASE 49 IU/L (0-55); ALBUMIN 3.2 g/dL (3.5-5.0); ALBUMIN/GLOBULIN RATIO 1.2 (0.8-2.0); ALKALINE PHOSPHATASE 63 IU/L (40-150); ANION GAP 11.1 mmol/L (8-16); BLOOD UREA NITROGEN 7 mg/dL (7-26); BUN/CREATININE RATIO 6 (6-25); CARBON DIOXIDE 26 mmol/L (22-29); CHLORIDE 108 mmol/L (98-107); CREATININE, SERUM 1.24 mg/dL (0.72-1.25); EST GLOMERULAR FILTRATION RATE > 60 ML/MIN (60-); GLUCOSE 77 mg/dL (74-118); POTASSIUM 4.1 mmol/L (3.5-5.1); SODIUM 141 mmol/L (136-145)
[2020-08-24 06:12] LABS: BASOPHILS # (AUTO) 0.1 (0.0-0.1); BASOPHILS % 0.9 % (0.0-1.0); EOSINOPHILS # (AUTO) 0.7 (0.0-0.4); HEMOGLOBIN 13.9 g/dL (14.0-18.0); LYMPHOCYTES # (AUTO) 5.3 (1.0-3.2); LYMPHOCYTES % 38.6 % (18.0-39.1); MEAN CORPUSCULAR HEMOGLOBIN 27.2 pg (28-32); MEAN CORPUSCULAR HGB CONC 33.1 g/dL (31-35); MEAN CORPUSCULAR VOLUME 82.2 fL (81-99); MONOCYTES # (AUTO) 1.8 (0.2-0.8); MONOCYTES % 13.5 % (4.4-11.3); NEUTROPHILS # (AUTO) 5.6 (2.1-6.9); NEUTROPHILS % 41.5 % (38.7-80.0); PLATELET COUNT 609 x10e3/uL (140-360); RED BLOOD COUNT 5.11 x10e6/uL (4.3-5.7); RED CELL DISTRIBUTION WIDTH 16.9 % (11.7-14.4)
[2020-08-24 07:24] LABS: EOSINOPHILS % (MANUAL) 5 % (0-7); LYMPHOCYTES % (MANUAL) 34 % (19-48); MONOCYTES % (MANUAL) 6 % (3.4-9.0); NEUTROPHILS % (MANUAL) 50 % (40-74)
[2020-08-24 07:27] LABS: PLATELET ESTIMATE SLIGHTLY INCREASED; PLATELET MORPHOLOGY COMMENT NORMAL
[2020-08-24 07:29] LABS: ANISOCYTOSIS SLIGHT; HYPOCHROMASIA SLIGHT; RBC MORPHOLOGY COMMENT NORMAL
[2020-08-24] MEDS: PANTOPRAZOLE 40 MG 10ML VIAL IV SCH ×2 (08:30→17:28)
[2020-08-24] MEDS: LISINOPRIL 10 MG TAB PO SCH (08:30)
[2020-08-24] MEDS: METOCLOPRAMIDE HCL 10 MG/2ML VIAL IV SCH ×2 (08:33→17:28)
[2020-08-24] MEDS: ACETAMINOPHEN/CODEINE 300MG - 30MG TAB PO PRN (12:26)
[2020-08-24] MEDS: SUCRALFATE 1 GM TAB PO SCH (21:10)
[2020-08-25] VITALS: BP 122/85
[2020-08-25 04:34] VITALS: BP 125/68
[2020-08-25 05:43] LABS: BASOPHILS # (AUTO) 0.1 (0.0-0.1); BASOPHILS % 0.9 % (0.0-1.0); EOSINOPHILS # (AUTO) 0.6 (0.0-0.4); EOSINOPHILS % 4.5 % (0.0-6.0); HEMATOCRIT 41.8 % (38.2-49.6); HEMOGLOBIN 13.9 g/dL (14.0-18.0); LYMPHOCYTES # (AUTO) 5.6 (1.0-3.2); LYMPHOCYTES % 39.7 % (18.0-39.1); MEAN CORPUSCULAR HEMOGLOBIN 27.2 pg (28-32); MEAN CORPUSCULAR HGB CONC 33.3 g/dL (31-35); MEAN CORPUSCULAR VOLUME 81.8 fL (81-99); MONOCYTES # (AUTO) 2.1 (0.2-0.8); MONOCYTES % 14.5 % (4.4-11.3); NEUTROPHILS # (AUTO) 5.7 (2.1-6.9); PLATELET COUNT 635 x10e3/uL (140-360); RED BLOOD COUNT 5.11 x10e6/uL (4.3-5.7); RED CELL DISTRIBUTION WIDTH 16.7 % (11.7-14.4)
[2020-08-25] MEDS: METRONIDAZOLE 500MG/NS 100ML 100 ML IV SCH ×3 (05:51→12:00)
[2020-08-25 06:11] LABS: ANION GAP 11.4 mmol/L (8-16); CALCIUM 8.2 mg/dL (8.4-10.2); CREATININE, SERUM 1.32 mg/dL (0.72-1.25); POTASSIUM 4.4 mmol/L (3.5-5.1)
[2020-08-25] MEDS: PIPER-TAZ 3.375 GM / NS 50ML IV SCH ×2 (06:47→14:00)
[2020-08-25 08:00] VITALS: BP 126/74
[2020-08-25 08:04] LABS: EOSINOPHILS % (MANUAL) 5 % (0-7); LYMPHOCYTES % (MANUAL) 28 % (19-48); METAMYELOCYTES % (MANUAL) 1 % (0-0); MONOCYTES % (MANUAL) 13 % (3.4-9.0); NEUTROPHILS % (MANUAL) 48 % (40-74); PROMYELOCYTES % (MANUAL) 4 % (0-0)
[2020-08-25 08:05] LABS: ANISOCYTOSIS MARKED; TARGET CELLS FEW
[2020-08-25 08:07] LABS: RBC MORPHOLOGY COMMENT ABNORMAL
[2020-08-25 08:08] LABS: PLATELET ESTIMATE SLIGHTLY INCREASED; PLATELET MORPHOLOGY COMMENT NORMAL
[2020-08-25 08:16] VITALS: BP 126/74
[2020-08-25] MEDS: PANTOPRAZOLE 40 MG 10ML VIAL IV SCH (08:30)
[2020-08-25] MEDS: METOCLOPRAMIDE HCL 10 MG/2ML VIAL IV SCH (09:16)
[2020-08-25] MEDS: LISINOPRIL 10 MG TAB PO SCH (09:16)
[2020-08-25] MEDS ORDERED: SODIUM CHLORIDE 0.9% 1000ML 1,000 ML IV ONE (12:00)
[2020-08-25 12:10] VITALS: BP 130/76
[2020-08-25] MEDS ORDERED: FLAGYL500 MG PO (14:29)
[2020-08-25] MEDS ORDERED: AUGMENTIN 500-1 EACH PO (14:29)
== END 2020-08-25 14:52 | disposition home or self-care (01) | DRG 391 ==
LOC: ER 00:56 → ERHOLD 02:41 → MED/SURG2 03:49 → OBSVTOIN 08-23 10:15
PROVIDERS: ADMIT Internal Medicine; ATTEND Internal Medicine
DX: K52.9 Noninfective gastroenteritis and colitis, unspecified (principal); K85.90 Acute pancreatitis without necrosis or infection, unspecified; N17.9 Acute kidney failure, unspecified; K21.9 Gastro-esophageal reflux disease without esophagitis; Z88.8 Allergy status to other drugs, medicaments and biological substances; Z91.013 Allergy to seafood; I10 Essential (primary) hypertension; K25.9 Gastric ulcer, unspecified as acute or chronic, without hemorrhage or perforation; Z90.49 Acquired absence of other specified parts of digestive tract; Z90.81 Acquired absence of spleen; Z82.3 Family history of stroke; Z80.9 Family history of malignant neoplasm, unspecified; E66.9 Obesity, unspecified; Z68.30 Body mass index [BMI] 30.0-30.9, adult; N50.0 Atrophy of testis; D75.1 Secondary polycythemia; Z20.828 Contact with and (suspected) exposure to other viral communicable diseases
CPT/HCPCS: 36415; 74177; 80048; 80053; 81001; 82150; 83605; 83690; 85025; 87040; 87086; 93005; 99284; G0378; J2270; J2405; J2543; J2765; J7030; Q9967; U0002

== ENCOUNTER 2021-10-17 01:50 | Emergency (ER) | payer OTHER ==
[~2021-10-17] VITALS: Ht 175.3 cm; Wt 91.6 kg
[~2021-10-17 01:50] MED LIST changes: +AMOX TR-K CLV1 EAC2 PO; +AUGMENTIN 500-1 EACH PO; +FLAGYL500 MG PO; +LISINOPRIL10 MG PO
[2021-10-17] MEDS ORDERED: ONDANSETRON HCL INJ 2MG/ML 2ML 2 MG/ML VIAL IV STA (01:56)
[2021-10-17] MEDS ORDERED: SODIUM CHLORIDE 0.9% 1000ML 1,000 ML IV ONE (02:00)
[2021-10-17] MEDS ORDERED: ONDANSETRON HCL INJ 2MG/ML 2ML 2 MG/ML VIAL ONE (02:17)
[2021-10-17 02:37] LABS: BASOPHILS # (AUTO) 0.1 (0.0-0.1); BASOPHILS % 0.7 % (0.0-1.0); EOSINOPHILS # (AUTO) 0.2 (0.0-0.4); EOSINOPHILS % 1.6 % (0.0-6.0); HEMATOCRIT 47.9 % (38.2-49.6); HEMOGLOBIN 16.4 g/dL (14.0-18.0); LYMPHOCYTES % 32.6 % (18.0-39.1); MEAN CORPUSCULAR HEMOGLOBIN 26.3 pg (28-32); MEAN CORPUSCULAR HGB CONC 34.2 g/dL (31-35); MEAN CORPUSCULAR VOLUME 76.8 fL (81-99); MONOCYTES # (AUTO) 1.8 (0.2-0.8); MONOCYTES % 11.8 % (4.4-11.3); NEUTROPHILS # (AUTO) 8.2 (2.1-6.9); NEUTROPHILS % 52.9 % (38.7-80.0); PLATELET COUNT 539 x10e3/uL (140-360); RED BLOOD COUNT 6.24 x10e6/uL (4.3-5.7); RED CELL DISTRIBUTION WIDTH 19.5 % (11.7-14.4)
[2021-10-17 02:50] LABS: AMYLASE 90 U/L (25-125); LIPASE 110 U/L (8-78)
[2021-10-17 02:51] LABS: ALBUMIN 3.5 g/dL (3.5-5.0); ALBUMIN/GLOBULIN RATIO 1.2 (0.8-2.0); ANION GAP 15.1 mmol/L (8-16); CALCIUM 9.2 mg/dL (8.4-10.2); CREATININE, SERUM 1.13 mg/dL (0.72-1.25); POTASSIUM 4.1 mmol/L (3.5-5.1)
[2021-10-17 02:57] LABS: CLARITY,URINE CLEAR (CLEAR); COLOR,URINE YELLOW (YELLOW); LEUKOCYTE ESTERASE ,URINE NEGATIVE (NEGATIVE)
[2021-10-17 02:58] LABS: BACTERIA,URINE FEW /HPF; EPITHELIAL CELLS,URINE FEW /LPF; KETONES,URINE NEGATIVE (NEGATIVE); NITRITE,URINE NEGATIVE (NEGATIVE); PROTEIN,URINE DIPSTICK NEGATIVE (NEGATIVE); URINE UROBILINOGEN 0.2 mg/dL (0.2 - 1)
[2021-10-17] MEDS ORDERED: SODIUM CHLORIDE 0.9% 50ML 50 ML ONE (03:15)
[2021-10-17] MEDS ORDERED: IOPAMIDOL 370 MG/ML 200 ML INFUS..BTL INJ ONE (03:15)
[2021-10-17] MEDS ORDERED: PANTOPRAZOLE SO40 MG PO (04:03)
[2021-10-17] MEDS ORDERED: ONDANSETRON ODT4 MG PO (04:03)
[2021-10-17] MEDS ORDERED: HYDROCODON-ACE1 EAC9 PO (04:03)
[2021-10-17 04:16] VITALS: BP 143/82
== END 2021-10-17 04:18 | disposition home or self-care (01) ==
LOC: ER 01:58
DX: R10.84 Generalized abdominal pain (principal); D75.1 Secondary polycythemia; K85.90 Acute pancreatitis without necrosis or infection, unspecified; D72.829 Elevated white blood cell count, unspecified; R19.7 Diarrhea, unspecified; K21.9 Gastro-esophageal reflux disease without esophagitis
CPT/HCPCS: 36415; 74177; 80053; 81001; 82150; 83605; 83690; 85025; 87040; 99284; C9113; J2405; J7030; Q9967

== ENCOUNTER 2022-11-13 03:11 | Emergency (ER) | payer OTHER ==
[~2022-11-13] VITALS: Ht 175.3 cm; Wt 93.0 kg
[~2022-11-13 03:11] MED LIST changes: +HYDROCODON-ACE1 EAC9 PO; +ONDANSETRON ODT4 MG PO; +PANTOPRAZOLE SO40 MG PO
[2022-11-13] MEDS ORDERED: ONDANSETRON HCL INJ 2MG/ML 2ML 2 MG/ML VIAL IV STA (03:20)
[2022-11-13] MEDS ORDERED: SODIUM CHLORIDE 0.9% 1000ML 1,000 ML IV ONE (03:30)
[2022-11-13] MEDS ORDERED: Morphine 4mg INJECTION 4 MG/ML INJ IV ONE (03:30)
[2022-11-13 03:46] LABS: BASOPHILS # (AUTO) 0.1 (0.0-0.1); BASOPHILS % 0.7 % (0.0-1.0); EOSINOPHILS # (AUTO) 0.2 (0.0-0.4); EOSINOPHILS % 1.2 % (0.0-6.0); HEMATOCRIT 50.9 % (38.2-49.6); HEMOGLOBIN 17.4 g/dL (14.0-18.0); LYMPHOCYTES # (AUTO) 5.8 (1.0-3.2); MEAN CORPUSCULAR HEMOGLOBIN 28.9 pg (28-32); MEAN CORPUSCULAR HGB CONC 34.2 g/dL (31-35); MEAN CORPUSCULAR VOLUME 84.4 fL (81-99); MONOCYTES # (AUTO) 2.1 (0.2-0.8); MONOCYTES % 11.4 % (4.4-11.3); NEUTROPHILS # (AUTO) 9.8 (2.1-6.9); NEUTROPHILS % 54.4 % (38.7-80.0); PLATELET COUNT 487 x10e3/uL (140-360); RED BLOOD COUNT 6.03 x10e6/uL (4.3-5.7); RED CELL DISTRIBUTION WIDTH 17.9 % (11.7-14.4)
[2022-11-13 03:50] LABS: CLARITY,URINE CLOUDY (CLEAR); COLOR,URINE YELLOW (YELLOW); LEUKOCYTE ESTERASE ,URINE NEGATIVE (NEGATIVE)
[2022-11-13 03:51] LABS: KETONES,URINE NEGATIVE (NEGATIVE); NITRITE,URINE NEGATIVE (NEGATIVE); PROTEIN,URINE DIPSTICK NEGATIVE (NEGATIVE); URINE UROBILINOGEN 1 mg/dL (0.2 - 1)
[2022-11-13 04:04] LABS: ALANINE AMINOTRANSFERASE 39 IU/L (0-55); ALBUMIN 3.6 g/dL (3.5-5.0); ALBUMIN/GLOBULIN RATIO 1.2 (0.8-2.0); ALKALINE PHOSPHATASE 56 IU/L (40-150); AMORPHOUS SEDIMENT,URINE MANY (FEW); ANION GAP 14.9 mmol/L (8-16); BACTERIA,URINE FEW /HPF; BLOOD UREA NITROGEN 8 mg/dL (7-26); BUN/CREATININE RATIO 6 (6-25); CALCIUM 8.9 mg/dL (8.4-10.2); CARBON DIOXIDE 22 mmol/L (22-29); CHLORIDE 107 mmol/L (98-107); CREATINE KINASE 729 IU/L (30-200); CREATININE, SERUM 1.24 mg/dL (0.72-1.25); EPITHELIAL CELLS,URINE FEW /LPF; GLUCOSE 101 mg/dL (74-118); POTASSIUM 3.9 mmol/L (3.5-5.1); RBC,URINE 0-5 /HPF (0-5); SODIUM 140 mmol/L (136-145); WBC,URINE (MAN) 0-5 /HPF (0-5)
[2022-11-13 04:13] LABS: CREATINE KINASE MB < 1.00 ng/mL (0-4.3)
[2022-11-13] MEDS ORDERED: ONDANSETRON ODT4 MG PO (05:58)
[2022-11-13] MEDS ORDERED: HYDROCODON-ACE1 EA12 PO (05:58)
[2022-11-13] MEDS ORDERED: METRONIDAZOLE500 MG PO (05:58)
[2022-11-13] MEDS ORDERED: CIPRO500 MG PO (05:58)
[2022-11-15] MEDS ORDERED: TESTOSTERO200 MG/1 M IM (14:29)
== END 2022-11-13 06:10 | disposition home or self-care (01) ==
LOC: ER 03:14
DX: R11.2 Nausea with vomiting, unspecified (principal); K52.9 Noninfective gastroenteritis and colitis, unspecified; R10.10 Upper abdominal pain, unspecified; D72.829 Elevated white blood cell count, unspecified; K21.9 Gastro-esophageal reflux disease without esophagitis
CPT/HCPCS: 36415; 74176; 80053; 81001; 82550; 82553; 83605; 83690; 84484; 85025; 87040; 93005; 99284; C9113; J2270; J2405; J2543; J7030

== ENCOUNTER → 2022-11-18 | Day surgery (SDC) | payer OTHER ==
[~2022-11-18] MED LIST changes: +CIPRO500 MG PO; +DICYCLOMINE HCL20 MG PO; +FENTANYL CITRATE/PF 100MCG/2 ML INJ ONE; +HYDROCODON-ACE1 EA12 PO; +LIDOCAINE HCL 2% LOCAL INJ 5 ML SDV VIAL INJ ONE; +METOCLOPRAMIDE HCL 10 MG/2ML VIAL ONE; +METRONIDAZOLE500 MG PO; +ONDANSETRON HCL INJ 2MG/ML 2ML 2 MG/ML VIAL ONE; +POVIDONE IODINE 0.05% 0.05 % ML PO ONE; +PROPOFOL IV EMULSION 10 MG/ML 20 ML VIAL ONE; +PROPOFOL IV EMULSION 10 MG/ML 50 ML VIAL IV ONE; +TESTOSTERO200 MG/1 M IM
[2022-11-18 14:48] VITALS: BP 112/74
[2022-11-22 06:12] LABS: ENDOMYSIAL ANTIBODIES, IGA Negative (Negative)
== END | disposition home or self-care (01) ==
LOC: OR 09:27
PROVIDERS: ATTEND Internal Medicine Gastroenterology
DX: K29.60 Other gastritis without bleeding (principal); D12.3 Benign neoplasm of transverse colon; K62.1 Rectal polyp; K52.9 Noninfective gastroenteritis and colitis, unspecified; K85.90 Acute pancreatitis without necrosis or infection, unspecified; K21.9 Gastro-esophageal reflux disease without esophagitis; K44.9 Diaphragmatic hernia without obstruction or gangrene; K63.89 Other specified diseases of intestine; K20.90 Esophagitis, unspecified without bleeding; K57.30 Diverticulosis of large intestine without perforation or abscess without bleeding; K64.8 Other hemorrhoids; Z71.3 Dietary counseling and surveillance; D72.829 Elevated white blood cell count, unspecified; D75.1 Secondary polycythemia; R55 Syncope and collapse; I10 Essential (primary) hypertension; Z71.89 Other specified counseling; Z88.1 Allergy status to other antibiotic agents; Z91.013 Allergy to seafood; Z01.810 Encounter for preprocedural cardiovascular examination; Z79.899 Other long term (current) drug therapy; Z68.30 Body mass index [BMI] 30.0-30.9, adult; Z86.16 Personal history of COVID-19
CPT/HCPCS: 43239; 45380; 45385; 82784; 83516; 83630; 83993; 86140; 86256; 87045; 87177; 87324; 87328; 87449; 93005; C9113; J2001; J2405; J2704 ×2; J2765; J3010; 45378

== ENCOUNTER 2022-11-19 17:53 | Emergency (ER) | payer OTHER ==
[~2022-11-19] VITALS: Ht 175.3 cm; Wt 93.0 kg
[~2022-11-19 17:53] MED LIST changes: -DICYCLOMINE HCL20 MG PO; -FENTANYL CITRATE/PF 100MCG/2 ML INJ ONE; -LIDOCAINE HCL 2% LOCAL INJ 5 ML SDV VIAL INJ ONE; -METOCLOPRAMIDE HCL 10 MG/2ML VIAL ONE; -ONDANSETRON HCL INJ 2MG/ML 2ML 2 MG/ML VIAL ONE; -POVIDONE IODINE 0.05% 0.05 % ML PO ONE; -PROPOFOL IV EMULSION 10 MG/ML 20 ML VIAL ONE; -PROPOFOL IV EMULSION 10 MG/ML 50 ML VIAL IV ONE
[2022-11-19] MEDS ORDERED: DICYCLOMINE HCL20 MG PO (18:26)
== END 2022-11-19 18:40 | disposition home or self-care (01) ==
LOC: ER 18:03
DX: R10.32 Left lower quadrant pain (principal); G89.29 Other chronic pain; K21.9 Gastro-esophageal reflux disease without esophagitis
CPT/HCPCS: 99282

== ENCOUNTER 2023-02-05 00:03 | Emergency (ER) | payer OTHER ==
[~2023-02-05] VITALS: Ht 175.3 cm; Wt 93.0 kg
[~2023-02-05 00:03] MED LIST changes: +DICYCLOMINE HCL20 MG PO
[2023-02-05 00:35] VITALS: O2SAT 100
[2023-02-05 01:02] LABS: BASOPHILS # (AUTO) 0.1 (0.0-0.1); BASOPHILS % 0.2 % (0.0-1.0); HEMATOCRIT 49.5 % (38.2-49.6); HEMOGLOBIN 17.1 g/dL (14.0-18.0); LYMPHOCYTES # (AUTO) 3.2 (1.0-3.2); LYMPHOCYTES % 15.4 % (18.0-39.1); MEAN CORPUSCULAR HEMOGLOBIN 28.5 pg (28-32); MEAN CORPUSCULAR HGB CONC 34.5 g/dL (31-35); MEAN CORPUSCULAR VOLUME 82.5 fL (81-99); MONOCYTES # (AUTO) 1.3 (0.2-0.8); MONOCYTES % 6.2 % (4.4-11.3); NEUTROPHILS # (AUTO) 15.8 (2.1-6.9); NEUTROPHILS % 77.4 % (38.7-80.0); PLATELET COUNT 465 x10e3/uL (140-360); RED CELL DISTRIBUTION WIDTH 20.3 % (11.7-14.4)
[2023-02-05 01:20] LABS: ALBUMIN 3.6 g/dL (3.5-5.0); ALBUMIN/GLOBULIN RATIO 1.4 (0.8-2.0); ANION GAP 14.2 mmol/L (8-16); CALCIUM 8.8 mg/dL (8.4-10.2); CREATININE, SERUM 1.3 mg/dL (0.72-1.25); POTASSIUM 4.2 mmol/L (3.5-5.1)
[2023-02-05] MEDS ORDERED: IOPAMIDOL 370 MG/ML 100 ML INFUS..BTL INJ ONE (01:33)
[2023-02-05] MEDS ORDERED: DICYCLOMINE HCL20 MG PO (02:28)
[2023-02-05 02:58] VITALS: BP 121/74; PULSE 74; RESP 18; TEMP 98
== END 2023-02-05 02:40 | disposition home or self-care (01) ==
LOC: ER 00:10
DX: R10.12 Left upper quadrant pain (principal); R11.0 Nausea; K21.9 Gastro-esophageal reflux disease without esophagitis
CPT/HCPCS: 36415; 74177; 80053; 83690; 85025; 99284; Q9967